=== PATIENT | male | born 1990 | race Caucasian/White ===

== ENCOUNTER 2017-09-16 20:28 | Inpatient (IN) | payer SELFPAY ==
[2017-09-16] VITALS (18 sets, daily range): BP systolic 78–113; BP diastolic 39–82
[~2017-09-16] VITALS: Ht 175.3 cm; Wt 66.0 kg
[~2017-09-16 20:28] MED LIST: BENZ100C18 PO; FAMO20TA5 PO; INSASP10V; INSASP10V SC; INSU100C4 SQ; Levofloxacin PO; Oseltamivir Phosphate PO; SODIUM BICARB 8.4% 50 MEQ/50 ML (ABBOTT) SYR INJ ONE; TRM50T PO
--- OUTSIDE RECORDS SUMMARY | 2017-09-16 20:35 | XMS REPORT | Continuity of Care Document ---
Author Author [employer] Organization [facility] Address Unknown Phone Unavailable Care Team Providers Care Franchise Consultant Name Role Phone [employer] Unavailable Unavailable Problems Medications Allergies, Adverse Reactions, Alerts Immunizations Results Vital Signs Encounters Procedures Plan of Care Social History Assessment and Plan Family History Value Date Source Advance Directives Order Name Results Value Date Source
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
--- OUTSIDE RECORDS SUMMARY | 2017-09-16 20:36 | XMS REPORT ---
Author Author HILARIO FISHMAN [facility] [employer] Address Unknown Phone Unavailable Care Team Providers Care Fur Joiner Name Role Phone HILARIO FISHMAN CP Unavailable Allergies No Known Allergies Problems [...] ankle and foot joint 719.07 Active Medications No Known Medications Results No Known Results Summary Purpose eClinicalWorks Submission
--- OUTSIDE RECORDS SUMMARY | 2017-09-16 20:36 | XMS REPORT | Clinical Summary ---
Author Author [facility] Organization [facility] Address Unknown Phone Unavailable Care Team Providers Care Sustainable Development Policy Analyst Name Role Phone PCP Unavailable Source Comments Some departments are not documenting in the electronic medical record. If you do not see the information that you expected, contact Release of Information in the Health Information Management department at [phone] for further assistance in locating additional records.[facility] Allergies Active Allergy Reactions Severity Noted Date Comments Penicillin G RASH Medium 12/15/2015 Current Medications Prescription Sig. Disp. Refills Start End Date Status Date natamycin (NATACYN) 5 % Insert or Apply 1 Drop to Active drps right eye as directed every 2 hours. INSULIN ASPART (NOVOLOG Inject into area(s) as Active SC) directed. INSULIN Inject into area(s) as Active GLARGINE,HUM.REC.ANLOG directed. (LANTUS SC) tobramycin (TOBREX) 0.3 % Insert or Apply 1 Drop to Active ophthalmic solution right eye as directed every 2 hours. Active Problems Problem Noted Date Keratitis right eye 12/16/2015 Overview: H/o non-healing epi defect Oct 2015, described by the patient as a possible recurrent erosion, that was being treated since Oct with antibiotic drops, PF, and BCL. 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 L ast Assessment & Plan: Infiltrate may be a little better Confocal--no epi centrally, loss of nerves and keratocytes anteriorly. No filaments or confirmed ameba. Has some globular KP of various sizes. No hyphae. A--infectious keratitis--under broad treatment P--CPM,. Review old records. Family History Medical History Relation Name Comments Diabetes Father Hypertension Father Diabetes Paternal Grandfather Hypertension Paternal Grandfather Cancer Paternal Grandmother Diabetes Paternal Grandmother Hypertension Paternal Grandmother Relation Name Status Comments Father Paternal Grandfather Paternal Grandmother Social History Tobacco Use Types Packs/Day Years Used Date Former Smoker Cigarettes 1 4 Alcohol Use Drinks/Week oz/Week Comments Yes 2 Standard 1.2 drinks or equivalent Sex Assigned at Date Recorded Not on file Last Filed Vital Signs Vital Sign Reading Time Taken Blood Pressure 135/75 12/15/2015 8:44 PM MIDDLE SCHOOL TEACHER Pulse 112 12/15/2015 8:44 PM MIDDLE SCHOOL TEACHER Temperature 37 C (98.6 F) 12/15/2015 8:44 PM MIDDLE SCHOOL TEACHER Respiratory Rate - - Oxygen Saturation 100% 12/15/2015 8:44 PM MIDDLE SCHOOL TEACHER Inhaled Oxygen - - Concentration Weight 52.2 kg (115 lb) 12/18/2015 12:19 PM MIDDLE SCHOOL TEACHER Height 180.3 cm (5' 11") 12/18/2015 12:19 PM MIDDLE SCHOOL TEACHER Body Mass Index 16.04 12/18/2015 12:19 PM MIDDLE SCHOOL TEACHER Plan of Treatment Health Maintenance Due Date Last Done Comments PHYSICAL (COMPREHENSIVE) 1996 EXAM PERTUSSIS VACCINE 2000 TETANUS VACCINE 2006 INFLUENZA VACCINE 05/16/2017 Results Not on filefrom Last 3 Months
--- OUTSIDE RECORDS SUMMARY | 2017-09-16 20:36 | XMS REPORT ---
Author Author EMIL TORRES Organization [employer] Address Unknown Phone Unavailable Care Team Providers Care Garment Sewer Hand Name Role Phone EMIL TORRES CP Unavailable [...] Start Date End Date Status Dosage NovoLog [facility] [address]-93 100 UNIT/ML Subcutaneous 3 times a day February 09, 2016 12 units NovoLog [facility] [address]-75 100 UNIT/ML Sep 08, 2014 12 units by Subcutaneous route 3 [place] [address]-94 100 UNIT/ML Sep 08, 2014 17 Unit by Subcutaneous route 1 time per day at bedtime Results No Known Results Summary Purpose eClinicalWorks Submission
--- OUTSIDE RECORDS SUMMARY | 2017-09-16 20:36 | XMS REPORT ---
Author Author EMIL TORRES Organization [employer] Address Unknown Phone Unavailable Care Team Providers Care Streetsweeper Operator Name Role Phone EMIL TORRES CP Unavailable [...]
--- OUTSIDE RECORDS SUMMARY | 2017-09-16 20:36 | XMS REPORT ---
Author Author EMIL TORRES Organization [employer] Address Unknown Phone Unavailable Care Team Providers Care Grocery Sacker Name Role Phone EMIL TORRES CP Unavailable [...]
--- OUTSIDE RECORDS SUMMARY | 2017-09-16 20:36 | XMS REPORT ---
Author Author EMIL TORRES Organization [employer] Address Unknown Phone Unavailable Care Team Providers Care Principal Examiner Name Role Phone EMIL TORRES CP Unavailable [...]
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
--- OUTSIDE RECORDS SUMMARY | 2017-09-16 20:36 | XMS REPORT ---
Author Author HILARIO FISHMAN [facility] [employer] Address Unknown Phone Unavailable Care Team Providers Care Application Support Analyst Name Role Phone HILARIO FISHMAN CP Unavailable [...]
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
[2017-09-16] MEDS ORDERED: NS IV 1000 ML 1,000 ML ONE ×2 (20:47→20:57)
[2017-09-16] MEDS ORDERED: inSUlin (REGULAR) HUMAN 1 UNIT/0.01 ML (CHARGE PER UNIT) ONE ×3 (20:55→21:24)
[2017-09-16] MEDS ORDERED: cefTRIAXone 1 GM (ROCEPHIN) VIAL IV STA (20:58)
[2017-09-16] MEDS ORDERED: NS IV 1000 ML 1,000 ML IV ONE (20:58)
[2017-09-16] MEDS ORDERED: NS IV 1000 ML 0 ML IV PRN (21:00)
[2017-09-16] MEDS ORDERED: LORazepam INJ 2 MG/ML (ATIVAN) VIAL ONE (21:05)
[2017-09-16 21:14] LABS: BASOPHILS # (AUTO) 0.2 10^3/uL (0.0-0.1); BASOPHILS % (AUTO) 1 % (0-10); EOSINOPHILS # (AUTO) 0.2 10^3/uL (0.0-0.3); EOSINOPHILS % (AUTO) 1 % (0-10); LYMPHOCYTES # (AUTO) 7.2 X 10^3 (1.0-4.0); LYMPHOCYTES % (AUTO) 23 % (12-44); MEAN CORPUSCULAR HEMOGLOBIN 29 PG (25-34); MEAN CORPUSCULAR HGB CONC 32 G/DL (32-36); MEAN CORPUSCULAR VOLUME 90 FL (80-99); MEAN PLATELET VOLUME 9.6 FL (7.4-10.4); MONOCYTES # (AUTO) 1.3 X 10^3 (0.0-1.0); MONOCYTES % (AUTO) 4 % (0-12); NEUTROPHILS # (AUTO) 22.5 X 10^3 (1.8-7.8); NEUTROPHILS % (AUTO) 72 % (42-75); PLATELET COUNT 457 10^3/uL (130-400); RED BLOOD COUNT 4.89 10^6/uL (4.35-5.85); RED CELL DISTRIBUTION WIDTH 12.8 % (10.0-14.5)
[2017-09-16 21:16] LABS: ABG BASE EXCESS -28.2 MMOL/L (-2.5-2.5); ABG OXYGEN SATURATION 100 % (94-100); ABG PO2 484 MMHG (79-93); ABG TCO2 2.4 MMOL/L (21.0-31.0)
[2017-09-16 21:24] LABS: BILIRUBIN,URINE NEGATIVE (NEGATIVE); KETONES,URINE 4+ (NEGATIVE); LEUKOCYTE ESTERASE ,URINE NEGATIVE (NEGATIVE); NITRITE,URINE NEGATIVE (NEGATIVE); PH,URINE 5 (5-9); PROTEIN,URINE 2+ (NEGATIVE); UROBILINOGEN,URINE NORMAL (NORMAL)
[2017-09-16] MEDS ORDERED: SODIUM BICARB 8.4% 50 MEQ/50 ML (ABBOTT) SYR ONE (21:24)
[2017-09-16 21:29] LABS: ALANINE AMINOTRANSFERASE 86 U/L (0-55); ALBUMIN 3.9 GM/DL (3.2-4.5); ALCOHOL < 10 MG/DL (<10); ASPARTATE AMINO TRANSFERASE 68 U/L (5-34); BILIRUBIN,TOTAL 0.3 MG/DL (0.1-1.0); BLOOD UREA NITROGEN 16 MG/DL (7-18); BUN/CREATININE RATIO 9; CALCIUM 9.5 MG/DL (8.5-10.1); CHLORIDE 94 MMOL/L (98-107); CREATININE SERUM 1.82 MG/DL (0.60-1.30); GFR ESTIMATED 45; MAGNESIUM 2.1 MG/DL (1.8-2.4); POTASSIUM 6.1 MMOL/L (3.6-5.0); SODIUM 133 MMOL/L (135-145); TOTAL PROTEIN 8.4 GM/DL (6.4-8.2); WHITE BLOOD COUNT 31.4 10^3/uL (4.3-11.0)
[2017-09-16 21:30] LABS: ABG HCO3 2 MMOL/L (23-27); ABG PCO2 11 MMHG (35-45); ABG PH 6.92 (7.37-7.43); PATIENT TEMP 97.5
[2017-09-16] MEDS ORDERED: SODIUM BICARB 8.4% 50 MEQ/50 ML (ABBOTT) SYR IV ONE ×2 (21:30→21:45)
[2017-09-16] MEDS ORDERED: inSUlin (REGULAR) HUMAN 1 UNIT/0.01 ML (CHARGE PER UNIT) IV ONE ×2 (21:30)
[2017-09-16 21:40] LABS: INR 1.4 (0.8-1.4); PROTHROMBIN TIME PATIENT 17.5 SEC (12.2-14.7)
[2017-09-16] MEDS ORDERED: D5W IV SOLUTION (EXCEL) 250 ML IV ONE ×2 (21:42→22:12)
[2017-09-16] MEDS ORDERED: NOREPINEPHRINE 4 MG/4 ML (LEVOPHED) AMP IV ONE (21:42)
[2017-09-16 21:43] LABS: ANION GAP 34 MMOL/L (5-14); CARBON DIOXIDE < 5 MMOL/L (21-32); GLUCOSE 753 MG/DL (70-105)
[2017-09-16] MEDS ORDERED: CEFEPIME INJECTION 2,000 MG in NS (IVPB) 50 ML IV ONE (21:45)
[2017-09-16] MEDS ORDERED: NS (IVPB) 50 ML ONE (21:49)
[2017-09-16] MEDS ORDERED: CEFEPIME HCL 2 GM (MAXIPIME) VIAL ONE (21:49)
[2017-09-16 21:52] LABS: BURR CELLS SLIGHT; EOSINOPHILS % (MANUAL) 1 %; LYMPHOCYTES % (MANUAL) 30 %; NEUTROPHILS % (MANUAL) 68 %; POIKILOCYTOSIS SLIGHT
[2017-09-16] MEDS ORDERED: RT-ALBUTEROL SULF 2.5 MG/3 ML PRE-MIX VIAL ONE (21:52)
[2017-09-16] MEDS ORDERED: ADENOSINE 6 MG/2 ML (ADENOCARD) VIAL IV ONE (21:54)
[2017-09-16 22:14] LABS: ABG BASE EXCESS -22.6 MMOL/L (-2.5-2.5); ABG OXYGEN SATURATION 99 % (94-100); ABG PCO2 20 MMHG (35-45); ABG PO2 127 MMHG (79-93); ABG TCO2 6.3 MMOL/L (21.0-31.0)
[2017-09-16 22:17] LABS: ABG HCO3 6 MMOL/L (23-27); ABG PH 7.08 (7.37-7.43); ALLENS TEST YES-POS
--- OUTSIDE RECORDS SUMMARY | 2017-09-16 22:22 | XMS REPORT | Clinical Summary ---
Author Author [facility] Organization [facility] Address Unknown Phone Unavailable Care Team Providers Care Grass Farmer Name Role Phone PCP Unavailable Source Comments Some departments are not documenting in the electronic medical record. If you do not see the information that you expected, contact Release of Information in the Health Information Management department at [phone] for further assistance in locating additional records.[facility] Allergies Active Allergy Reactions Severity Noted [...] and BCL. 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 Assessment & Plan: Infiltrate may [...] Taken Blood Pressure 135/75 12/15/2015 8:44 PM DIRECTOR LABOR STANDARDS Pulse 112 12/15/2015 8:44 PM DIRECTOR LABOR STANDARDS Temperature 37 C (98.6 F) 12/15/2015 8:44 PM DIRECTOR LABOR STANDARDS Respiratory Rate - - Oxygen Saturation 100% 12/15/2015 8:44 PM DIRECTOR LABOR STANDARDS Inhaled Oxygen - - Concentration Weight 52.2 kg (115 lb) 12/18/2015 12:19 PM DIRECTOR LABOR STANDARDS Height 180.3 cm (5' 11") 12/18/2015 12:19 PM DIRECTOR LABOR STANDARDS Body Mass Index 16.04 12/18/2015 12:19 PM DIRECTOR LABOR STANDARDS Plan of Treatment Health Maintenance Due Date Last Done Comments PHYSICAL (COMPREHENSIVE) 1996 EXAM PERTUSSIS VACCINE 2000 TETANUS VACCINE 2006 INFLUENZA VACCINE 05/16/2017 Results Not on filefrom Last 3 Months
--- OUTSIDE RECORDS SUMMARY | 2017-09-16 22:22 | XMS REPORT | Continuity of Care Document ---
Author Author [employer] Organization [facility] Address Unknown Phone Unavailable Care Team Providers Care Alumnae Secretary Name Role Phone [employer] Unavailable Unavailable Problems Medications Allergies, Adverse Reactions, Alerts Immunizations Results Vital Signs Encounters Procedures Plan of Care Social History Assessment and Plan Family History Value Date Source Advance Directives Order Name Results Value Date Source
[2017-09-16] MEDS: PHENYLEPHRINE INJECTION 10 MG in D5W IV SOLUTION (EXCEL) 250 ML IV SCH (22:23)
[2017-09-16] MEDS: PHENYLEPHRINE INJ 10 MG/ML (NEO-SYNEPHRINE 1%) ONE (22:23)
--- NOTE | 2017-09-16 22:33 | History & Physicial ([facility]) ---
HPI History of Present Illness: Patient is unable to provide much history at this time, but does nod and shake his head and attempt to answer questions. Per family, he has not taken insulin in about 8 days. He has been having sinusitis type symptoms and reportedly was seen yesterday and treated for sinusitis. Today, his mother called him and he was not doing well, so she went to his house and found him to be very ill whereupon he was brought to the ER where he was found to have hypoxia, hypotension, tachycardia and acidosis, requiring pressor and CPAP. Source: patient, family Exam Limitations: clinical condition Date seen by provider: Sep 16, 2017 Time Seen by Provider: 22:31 Attending Physician Sravani Stoddard MD PCP [facility] [place] Date of Admission Sep 16, 2017 at 21:30 Home Medications Home Medications Reviewed patient Home Medication Reconciliation Form Allergies Coded Allergies: Penicillins (Verified Allergy, Unknown, 05/23/06) [id number]-[id number] Hx Patient Social History Alcohol Use: Denies Use Recreational Drug Use: No Smoking Status: Unknown if Ever Smoked 2nd Hand Smoke Exposure: No Recent Foreign Travel: No Contact w/other who traveled: No Recent Hopitalizations: Yes Recent Infectious Disease Expo: No Immunizations Up To Date Tetanus Booster (TDap): Unknown Past Medical History PMHx: DMI Family Medical History Significant Family History: No Pertinent Family Hx Review of Systems ([facility]) Constitutional: other (unable to obtain due to patient condition) Reviewed Test Results Reviewed Test Results Lab Laboratory Tests Test 09/16/17 20:46 09/16/17 20:51 09/16/17 21:05 09/16/17 21:14 Range/Units Glucometer > 600 *H 70-110 MG/DL White Blood Count 31.4 *H 4.3-11.0 10^3/uL Red Blood Count 4.89 4.35-5.85 10^6/uL Hemoglobin 14.3 13.3-17.7 G/DL Hematocrit 44 40-54 % Mean Corpuscular Volume 90 80-99 FL Mean Corpuscular Hemoglobin 29 25-34 PG Mean Corpuscular Hemoglobin Concent 32 32-36 G/DL Red Cell Distribution Width 12.8 10.0-14.5 % Platelet Count 457 H 130-400 10^3/uL Mean Platelet Volume 9.6 7.4-10.4 FL Neutrophils (%) (Auto) 72 42-75 % Lymphocytes (%) (Auto) 23 12-44 % Monocytes (%) (Auto) 4 0-12 % Eosinophils (%) (Auto) 1 0-10 % Basophils (%) (Auto) 1 0-10 % Neutrophils # (Auto) 22.5 H 1.8-7.8 X 10^3 Lymphocytes # (Auto) 7.2 H 1.0-4.0 X 10^3 Monocytes # (Auto) 1.3 H 0.0-1.0 X 10^3 Eosinophils # (Auto) 0.2 0.0-0.3 10^3/uL Basophils # (Auto) 0.2 H 0.0-0.1 10^3/uL Neutrophils % (Manual) 68 % Lymphocytes % (Manual) 30 % Monocytes % (Manual) 1 % Eosinophils % (Manual) 1 % Platelet Estimate INCREASED Poikilocytosis SLIGHT [place] Cells SLIGHT Sodium Level 133 L 135-145 MMOL/L Potassium Level 6.1 H 3.6-5.0 MMOL/L Chloride Level 94 L 98-107 MMOL/L Carbon Dioxide Level < 5 *L 21-32 MMOL/L Anion Gap 34 H 5-14 MMOL/L Blood Urea Nitrogen 16 7-18 MG/DL Creatinine 1.82 H 0.60-1.30 MG/DL Estimat Glomerular Filtration Rate 45 BUN/Creatinine Ratio 9 Glucose Level 753 *H 70-105 MG/DL Calcium Level 9.5 8.5-10.1 MG/DL Magnesium Level 2.1 1.8-2.4 MG/DL Total Bilirubin 0.3 0.1-1.0 MG/DL Aspartate Amino Transf (AST/SGOT) 68 H 5-34 U/L Alanine Aminotransferase (ALT/SGPT) 86 H 0-55 U/L Alkaline Phosphatase 189 H 40-136 U/L Total Protein 8.4 H 6.4-8.2 GM/DL Albumin 3.9 3.2-4.5 GM/DL Thyroid Stimulating Hormone (TSH) 0.00 L 0.35-4.94 UIU/ML Serum Alcohol < 10 <10 MG/DL Blood Gas Puncture Site RT BRACHIAL Blood Gas Patient Temperature 97.5 Arterial Blood pH 6.92 *L 7.37-7.43 Arterial Blood Partial Pressure CO2 11 *L 35-45 MMHG Arterial Blood Partial Pressure O2 484 H 79-93 MMHG Arterial Blood HCO3 2 *L 23-27 MMOL/L Arterial Blood Total CO2 2.4 L 21.0-31.0 MMOL/L Arterial Blood Oxygen Saturation 100 94-100 % Arterial Blood Base Excess -28.2 L -2.5-2.5 MMOL/L Bony Test NA Blood Gas Ventilator Setting NO Blood Gas Inspired Oxygen 100% Lactic Acid Level 5.41 *H 0.50-2.00 MMOL/L Urine Color YELLOW Urine Clarity CLEAR Urine pH 5 5-9 Urine Specific [place] 1.020 1.016-1.022 Urine Protein 2+ H NEGATIVE Urine Glucose (UA) 4+ H NEGATIVE Urine Ketones 4+ H NEGATIVE Urine Nitrite NEGATIVE NEGATIVE Urine Bilirubin NEGATIVE NEGATIVE Urine Urobilinogen NORMAL NORMAL MG/DL Urine Leukocyte Esterase NEGATIVE NEGATIVE Urine RBC (Auto) 5+ H NEGATIVE Urine RBC 10-25 H /HPF Urine WBC NONE /HPF Urine Crystals PRESENT H /LPF Urine Amorphous Sediment FEW TARAS URATES H /LPF Urine Bacteria NEGATIVE /HPF Urine Casts NONE /LPF Urine Mucus NEGATIVE /LPF Urine Culture Indicated NO Urine Opiates Screen NEGATIVE NEGATIVE Urine Oxycodone Screen NEGATIVE NEGATIVE Urine Methadone Screen NEGATIVE NEGATIVE Urine Propoxyphene Screen NEGATIVE NEGATIVE Urine Barbiturates Screen NEGATIVE NEGATIVE Ur Tricyclic Antidepressants Screen NEGATIVE NEGATIVE Urine Phencyclidine Screen NEGATIVE NEGATIVE Urine Amphetamines Screen NEGATIVE NEGATIVE Urine Methamphetamines Screen NEGATIVE NEGATIVE Urine Benzodiazepines Screen NEGATIVE NEGATIVE Urine Cocaine Screen NEGATIVE NEGATIVE Urine Cannabinoids Screen NEGATIVE NEGATIVE Test 09/16/17 21:20 09/16/17 21:21 09/16/17 21:48 09/16/17 22:05 Range/Units Prothrombin Time 17.5 H 12.2-14.7 SEC INR Comment 1.4 0.8-1.4 Activated Partial Thromboplast Time 24 24-35 SEC Glucometer > 600 *H 524 *H 70-110 MG/DL Blood Gas Puncture Site LEFT RADIAL Blood Gas Patient Temperature 98.0 Arterial Blood pH 7.08 *L 7.37-7.43 Arterial Blood Partial Pressure CO2 20 L 35-45 MMHG Arterial Blood Partial Pressure O2 127 H 79-93 MMHG Arterial Blood HCO3 6 *L 23-27 MMOL/L Arterial Blood Total CO2 6.3 L 21.0-31.0 MMOL/L Arterial Blood Oxygen Saturation 99 94-100 % Arterial Blood Base Excess -22.6 L -2.5-2.5 MMOL/L Bony Test YES-POS Blood Gas Ventilator Setting NO Blood Gas Inspired Oxygen 100% Test 09/16/17 22:17 Range/Units Glucometer 454 *H 70-110 MG/DL Physical Exam-([facility]) Physical Exam Vital Signs VS - Last 72 Hours, by Label 09/16/17 09/16/17 20:40 21:10 Temp 96.6 Pulse 180 201 Resp 40 45 B/P (MAP) 91/39 (56) Pulse Ox 86 100 O2 Delivery Room Air O2 Flow Rate 100.00 Capillary Refill : Greater Than 3 Seconds General Appearance: severe distress, thin Respiratory: lungs clear, normal breath sounds, accessory muscle use Cardiovascular: no murmur, tachycardia Peripheral Pulses: 2+ Dorsalis Pedis (R), 2+ Left Dors-Pedis (L), 2+ Radial Pulses (R), 2+ Radial Pulses (L) Gastrointestinal: normal bowel sounds, non tender, soft Extremities: no pedal edema Neurologic/Psychiatric: other (lethargic, but answers to name and nods and shakes head appropriately to questions) Skin: cool, other (both shins with large ulcerations with surrounding erythema , family reports occurred on april and he has continued to pick them) Assessment/Plan Assessment/Plan Admission Dx Diabetic ketoacidosis Possible septic shock Lactic acidosis Acute renal insufficiency Tachycardia Hypoxia Altered mental status Hyperkalemia Hyponatremia Chronic leg wounds Plan Diabetic ketoacidosis- pH 6.91 on admission with bicarb of 2 and glucose over 700 -Reportedly no insulin use in last 8 days -Has received 4 liters of NS and 40 units insulin in ER, start DKA protocol in ICU Possible septic shock- WBC over 30 with ALICIA and hypotension in spite of fluid resuscitation -Source unclear, urine without evidence of infection, CXR pending and flu swab pending, consider cellulitis with chronic wounds on legs with some surrounding erythema -Start antibiotics for unknown source, phenylephrine for hypotension due to marked tachycardia per Dr. Blum -Consult Dr. Heredia/Surgery for central line placement for pressors Lactic acidosis- due to septic shock versus DKA with severe hypovolemia and poor tissue perfusion -4 liters bolus given in ER, continue aggressive fluid resuscitation, anticipate need for 8 liters or more -Recheck with next labs Acute renal insufficiency- likely secondary to hypovolemia, monitor with recurring labs Tachycardia- severe with heart rate 190 to over 200, Cardiology contacted by ER physician, phenylephrine drip for hypotension, IVF for underlying conditions noted above Hypoxia- on admission, unclear etiology, currently on cpap at 7 with normal SpO2 , RT consulted, CXR pending Altered mental status- likely due to underlying severe illness noted above, monitor closely Hyperkalemia- anticipate resolution with IVF and insulin, monitor closely for drop and need for replacement per DKA protocol Hyponatremia- pseudohyponatremia due to hyperglycemia, corrected sodium actually 149 which is hypernatremic, if remains elevated after initial fluids will need to change to 1/2NS, follow-up recurring labs Chronic leg wounds- will likely need wound care when stabilized DVT ppx- enoxaparin Disp- admit to ICU, critical, tenuous condition discussed with patient and family. Cardiology, Critical Care and Surgery consulted. SRAVANI STODDARD MD Sep 16, 2017 22:33
--- NOTE | 2017-09-16 23:00 | ED General ---
General Chief Complaint: Glucose Problems Stated Complaint: DKA,SEVERE SEPSIS,SEPTIC SHOCK,ACUTE RENAL FAILURE Nursing Triage Note: PATIENT BROUGHT IN BY WHEELCHAIR BY MOTHER. MOTHER STATES HE IS HAVING DIFFICULTY BREATHING. PATIENT BROUGHT BACK. NOT ALERT. UNABLE TO ANSWER QUESTIONS OR SLOW TO ANSWER. ONSET OF SYMPTOMS UNKNOWN. PATIENT DID STATE HE HAS NOT TAKEN HIS INSULIN IN 8 DAYS. ACCUCHECK TOO HIGH TO READ ON GLUCOMETER. Nursing Sepsis Screen: Possible Severe Sepsis Risk Source of Information: Family (MOM), Old Records (ALL PMH IS FROM OLD RECORDS) Exam Limitations: Other (PT TOO ILL TO ANSWER QUESTIONS, BUT OCCASIONALLY NODS HEAD YES/NO) History of Present Illness Time Seen by Provider: 20:50 Initial Comments PT ARRIVES VIA POV FROM HOME PT HAVING LABORED BREATHING AND IS VERY LETHARGIC PT HAS NOT TAKEN ANY INSULIN FOR 8 DAYS, FOR NO APPARENT REASON--TYPE 1 DIABETIC DX IN 2001 PT WAS SEEN AT [facility] YESTERDAY AND DX WITH SINUS INFECTION AND GIVEN RX FOR Z- PACK. NO OTHER INFORMATION IS OBTAINABLE ON ARRIVAL GLUCOSE IS TOO HIGH TO READ ON GLUCOMETER PT HAS HISTORY OF MULTIPLE ADMITS FOR DKA PCP: [facility] Allergies and Home Medications Allergies Coded Allergies: Penicillins (Verified Allergy, Unknown, 05/23/06) Home Medications Benzonatate 100 Mg Capsule, 100 MG PO TID, #20 Prescribed by: AMRIK JANSEN on 11/17/14911 Insulin Aspart 10 Unit/0.1 Ml Susp, SC TID, (Reported) Insulin Glargine,Hum.rec.anlog 100 U/Ml Cartridge, 12 UNITS SQ HS, (Reported) [Levofloxacin] 750 MG TABLET, 750 MG PO DAILY@1100 for 7 Days Prescribed by: AMRIK JNASEN on 11/17/14911 [Oseltamivir Phosphate] 75 MG CAP, 75 MG PO BID, #3 Prescribed by: AMRIK JANSEN on 11/17/14911 Constitutional: malaise, weakness Respiratory: short of breath, other (BREATHING HARD AND FAST) Skin: other (SCABBED WOUNDS TO SHINS BILATERALLY--MOM STATES IS FROM [place]--[employer] IN[employer]UR[employer]--PT KEEPS PICKING AT THEM AND THEY WON'T HEAL, ACCORDING TO MOM) Past Wpipoya-Ytzkgs-Wdzsjh Hx Patient Social History Alcohol Use: Denies Use Recreational Drug Use: No Smoking Status: Never a Smoker 2nd Hand Smoke Exposure: No Recent Foreign Travel: No Contact w/Someone Who Travel: No Recent Infectious Disease Expo: No Recent Hopitalizations: Yes Physical Abuse: No Sexual Abuse: No Immunizations Up To Date Tetanus Booster (TDap): Unknown Surgeries History of Surgeries: No Respiratory History of Respiratory Disorde: Yes Respiratory Disorders: Pneumonia Cardiovascular History of Cardiac Disorders: No Neurological History of Neurological Disord: No Reproductive System Hx Reproductive Disorders: No Sexually Transmitted Disease: No HIV/AIDS: No Genitourinary History of Genitourinary Disor: No Gastrointestinal History of Gastrointestinal Di: No Musculoskeletal History of Musculoskeletal Dis: No Endocrine History of Endocrine Disorders: Yes (TYPE 1 DIABETES WITH MULTIPLE ADMITS FOR DKA) Endocrine Disorders: Diabetes, Insulin dep HEENT History of HEENT Disorders: No Cancer History of Cancer: No Psychosocial History of Psychiatric Problem: No Suicide Risk Score: 0 Integumentary History of Skin or Integumenta: No Blood Transfusions History of Blood Disorders: No Family Medical History Significant Family History: No Pertinent Family Hx Physical Exam Vital Signs Vital Sign - Last 12Hours 09/16/17 09/16/17 20:40 21:00 Temp 96.6 Pulse 180 Resp 40 B/P (MAP) 91/39 (56) Pulse Ox 86 O2 Delivery Room Air O2 Flow Rate 10.00 Capillary Refill : Greater Than 3 Seconds General Appearance: Chronically ill, Cachetic, Severe Distress, Thin, Other ( TACHYPNEIC, LABORED BREATHING, VERY LETHARGIC, AGITATED, THRASHING AROUND SOME) HEENT: Other (CONJUNCTIVA/EYEBALLS MARKEDLY DRY/SHRIVELED AND EYES VERY SUNKEN , EYES PARTIALLY OPEN. ORAL MUCOSA VERY DRY) Neck: Non Tender, Supple Respiratory: Accessory Muscle Use, Respiratory Distress (TACHYPNEIC AND LABORED BREATHING) Cardiovascular: Tachycardia Gastrointestinal: No Organomegaly, No Pulsatile Mass, Soft (SCAPHOID) Extremity: No Pedal Edema, Slow Capillary Refill, Other (EXTENSIVE SCABBED WOUNDS TO BILATERAL ANTERIOR SHINS--NO OBVIOUS SIGNS OF SECONDARY INFECTION--NO SIGNIFICANT ERYTHEMA (ONLY VERY SLIGHT SURROUNDING ERYTHEMA ) , INDURATION, DRAINAGE, FLUCTUANCE OR STREAKS) Neurologic/Psychiatric: Other (SEMI-ALERT, VERY LETHARGIC. PT NODS HEAD YES/NO OCCASIONALLY, BUT NOT REALLY VERBAL. NOT FOLLOWING COMMANDS, SOMEWHAT AGITATED AND THRASHING, PULLING ON IV TUBING, O2 MASK, ETC. ) Skin: Warm/Dry, Pallor, Other (VERY POOR TURGOR) Focused Exam Evaluation Sepsis Stage: Septic Shock Possible Source: Unknown Lactate Level Laboratory Tests 09/16/17 23:20: Lactic Acid Level 3.87*H 09/17/17 01:15: Lactic Acid Level 3.71*H 09/17/17 03:15: Lactic Acid Level 3.49*H Respiratory: Accessory Muscle Use, No Rales, Respiratory Distress, No Rhonci, No Wheezing Cardiovascular: Tachycardia Peripheral Pulses: 0 Dorsalis Pedis (R), 0 Left Dors-Pedis (L), 1+ Radial Pulses (R), 1+ Radial Pulses (L) Skin: warm/dry, pallor Lactic Acid Level Laboratory Tests Test 09/17/17 01:15 09/17/17 03:15 Lactic Acid Level 3.71 MMOL/L (0.50-2.00) *H 3.49 MMOL/L (0.50-2.00) *H Progress/Results/Core Measures Suspected Sepsis Recent Fever Within 48 Hours: No Infection Criteria Present: Suspected New Infection New/Unexplained Altered Menta: Yes Sepsis Screen: Possible Severe Sepsis Risk Sepsis Diagnosis: SIRS Temperature:97.2 Pulse: 189 Respiratory Rate: 30 Laboratory Tests 09/16/17 20:51: White Blood Count 31.4*H Blood Pressure 101 /70 Mean: 80 Laboratory Tests 09/16/17 23:20: Lactic Acid Level 3.87*H 09/17/17 01:15: Lactic Acid Level 3.71*H 09/17/17 03:15: Lactic Acid Level 3.49*H Laboratory Tests 09/16/17 20:51: Platelet Count 457H, Total Bilirubin 0.3 09/16/17 21:20: INR Comment 1.4 09/16/17 23:20: Creatinine 1.11 09/17/17 01:15: Creatinine 1.02 09/17/17 03:15: Creatinine 0.93 Results/Orders Lab Results Laboratory Tests Test 09/16/17 20:46 09/16/17 20:51 09/16/17 21:05 09/16/17 21:14 Range/Units Glucometer > 600 *H 70-110 MG/DL White Blood Count 31.4 *H 4.3-11.0 10^3/uL Red Blood Count 4.89 4.35-5.85 10^6/uL Hemoglobin 14.3 13.3-17.7 G/DL Hematocrit 44 40-54 % Mean Corpuscular Volume 90 80-99 FL Mean Corpuscular Hemoglobin 29 25-34 PG Mean Corpuscular Hemoglobin Concent 32 32-36 G/DL Red Cell Distribution Width 12.8 10.0-14.5 % Platelet Count 457 H 130-400 10^3/uL Mean Platelet Volume 9.6 7.4-10.4 FL Neutrophils (%) (Auto) 72 42-75 % Lymphocytes (%) (Auto) 23 12-44 % Monocytes (%) (Auto) 4 0-12 % Eosinophils (%) (Auto) 1 0-10 % Basophils (%) (Auto) 1 0-10 % Neutrophils # (Auto) 22.5 H 1.8-7.8 X 10^3 Lymphocytes # (Auto) 7.2 H 1.0-4.0 X 10^3 Monocytes # (Auto) 1.3 H 0.0-1.0 X 10^3 Eosinophils # (Auto) 0.2 0.0-0.3 10^3/uL Basophils # (Auto) 0.2 H 0.0-0.1 10^3/uL Neutrophils % (Manual) 68 % Lymphocytes % (Manual) 30 % Monocytes % (Manual) 1 % Eosinophils % (Manual) 1 % Platelet Estimate INCREASED Poikilocytosis SLIGHT [place] Cells SLIGHT Sodium Level 133 L 135-145 MMOL/L Potassium Level 6.1 H 3.6-5.0 MMOL/L Chloride Level 94 L 98-107 MMOL/L Carbon Dioxide Level < 5 *L 21-32 MMOL/L Anion Gap 34 H 5-14 MMOL/L Blood Urea Nitrogen 16 7-18 MG/DL Creatinine 1.82 H 0.60-1.30 MG/DL Estimat Glomerular Filtration Rate 45 BUN/Creatinine Ratio 9 Glucose Level 753 *H 70-105 MG/DL Calcium Level 9.5 8.5-10.1 MG/DL Magnesium Level 2.1 1.8-2.4 MG/DL Total Bilirubin 0.3 0.1-1.0 MG/DL Aspartate Amino Transf (AST/SGOT) 68 H 5-34 U/L Alanine Aminotransferase (ALT/SGPT) 86 H 0-55 U/L Alkaline Phosphatase 189 H 40-136 U/L Total Protein 8.4 H 6.4-8.2 GM/DL Albumin 3.9 3.2-4.5 GM/DL Thyroid Stimulating Hormone (TSH) 0.00 L 0.35-4.94 UIU/ML Serum Alcohol < 10 <10 MG/DL Blood Gas Puncture Site RT BRACHIAL Blood Gas Patient Temperature 97.5 Arterial Blood pH 6.92 *L 7.37-7.43 Arterial Blood Partial Pressure CO2 11 *L 35-45 MMHG Arterial Blood Partial Pressure O2 484 H 79-93 MMHG Arterial Blood HCO3 2 *L 23-27 MMOL/L Arterial Blood Total CO2 2.4 L 21.0-31.0 MMOL/L Arterial Blood Oxygen Saturation 100 94-100 % Arterial Blood Base Excess -28.2 L -2.5-2.5 MMOL/L Bony Test NA Blood Gas Ventilator Setting NO Blood Gas Inspired Oxygen 100% Lactic Acid Level 5.41 *H 0.50-2.00 MMOL/L Urine Color YELLOW Urine Clarity CLEAR Urine pH 5 5-9 Urine Specific [place] 1.020 1.016-1.022 Urine Protein 2+ H NEGATIVE Urine Glucose (UA) 4+ H NEGATIVE Urine Ketones 4+ H NEGATIVE Urine Nitrite NEGATIVE NEGATIVE Urine Bilirubin NEGATIVE NEGATIVE Urine Urobilinogen NORMAL NORMAL MG/DL Urine Leukocyte Esterase NEGATIVE NEGATIVE Urine RBC (Auto) 5+ H NEGATIVE Urine RBC 10-25 H /HPF Urine WBC NONE /HPF Urine Crystals PRESENT H /LPF Urine Amorphous Sediment FEW TARAS URATES H /LPF Urine Bacteria NEGATIVE /HPF Urine Casts NONE /LPF Urine Mucus NEGATIVE /LPF Urine Culture Indicated NO Urine Opiates Screen NEGATIVE NEGATIVE Urine Oxycodone Screen NEGATIVE NEGATIVE Urine Methadone Screen NEGATIVE NEGATIVE Urine Propoxyphene Screen NEGATIVE NEGATIVE Urine Barbiturates Screen NEGATIVE NEGATIVE Ur Tricyclic Antidepressants Screen NEGATIVE NEGATIVE Urine Phencyclidine Screen NEGATIVE NEGATIVE Urine Amphetamines Screen NEGATIVE NEGATIVE Urine Methamphetamines Screen NEGATIVE NEGATIVE Urine Benzodiazepines Screen NEGATIVE NEGATIVE Urine Cocaine Screen NEGATIVE NEGATIVE Urine Cannabinoids Screen NEGATIVE NEGATIVE Test 09/16/17 21:20 09/16/17 21:21 09/16/17 21:48 09/16/17 22:05 Range/Units Prothrombin Time 17.5 H 12.2-14.7 SEC INR Comment 1.4 0.8-1.4 Activated Partial Thromboplast Time 24 24-35 SEC Glucometer > 600 *H 524 *H 70-110 MG/DL Blood Gas Puncture Site LEFT RADIAL Blood Gas Patient Temperature 98.0 Arterial Blood pH 7.08 *L 7.37-7.43 Arterial Blood Partial Pressure CO2 20 L 35-45 MMHG Arterial Blood Partial Pressure O2 127 H 79-93 MMHG Arterial Blood HCO3 6 *L 23-27 MMOL/L Arterial Blood Total CO2 6.3 L 21.0-31.0 MMOL/L Arterial Blood Oxygen Saturation 99 94-100 % Arterial Blood Base Excess -22.6 L -2.5-2.5 MMOL/L Bony Test YES-POS Blood Gas Ventilator Setting NO Blood Gas Inspired Oxygen 100% Test 09/16/17 22:17 09/16/17 23:20 09/16/17 23:35 09/16/17 23:48 Range/Units Glucometer 454 *H 323 H 70-110 MG/DL Sodium Level 144 135-145 MMOL/L Potassium Level 3.9 3.6-5.0 MMOL/L Chloride Level 114 #H 98-107 MMOL/L Carbon Dioxide Level 7 *L 21-32 MMOL/L Anion Gap 23 H 5-14 MMOL/L Blood Urea Nitrogen 15 7-18 MG/DL Creatinine 1.11 0.60-1.30 MG/DL Estimat Glomerular Filtration Rate > 60 BUN/Creatinine Ratio 14 Glucose Level 346 H 70-105 MG/DL Lactic Acid Level 3.87 *H 0.50-2.00 MMOL/L Calcium Level 6.7 L 8.5-10.1 MG/DL Hemoglobin A1c 8.9 H 4.5-6.2 % Test 09/17/17 01:15 09/17/17 01:21 09/17/17 02:16 09/17/17 03:15 Range/Units Sodium Level 144 142 135-145 MMOL/L Potassium Level 3.8 3.8 3.6-5.0 MMOL/L Chloride Level 115 H 115 H 98-107 MMOL/L Carbon Dioxide Level 9 *L 15 L 21-32 MMOL/L Anion Gap 20 H 12 5-14 MMOL/L Blood Urea Nitrogen 12 9 7-18 MG/DL Creatinine 1.02 0.93 0.60-1.30 MG/DL Estimat Glomerular Filtration Rate > 60 > 60 BUN/Creatinine Ratio 12 10 Glucose Level 248 H 171 H 70-105 MG/DL Lactic Acid Level 3.71 *H 3.49 *H 0.50-2.00 MMOL/L Calcium Level 7.0 L 7.0 L 8.5-10.1 MG/DL Glucometer 233 H 182 H 70-110 MG/DL Test 09/17/17 03:21 09/17/17 04:15 Range/Units Glucometer 159 H 170 H 70-110 MG/DL Micro Results Microbiology 09/16/17 Influenza Types A,B Antigen ([facility]) - Final, Complete My Orders Orders - NICOL SUÁREZ DO Ns Iv 1000 Ml (Sodium Chloride 0.9%) (09/16/17 20:47) Insulin (Regular) Human (Humulin R (Per (09/16/17 20:55) Ns Iv 1000 Ml (Sodium Chloride 0.9%) (09/16/17 20:57) Sputum Culture (09/16/17 20:58) Ua Culture If Indicated (09/16/17 20:58) O2 (09/16/17 20:58) Saline Lock/Iv-Start (09/16/17 20:58) Saline Lock/Iv-Start (09/16/17 20:58) Vital Signs Adult Sepsis Patie Q1H (09/16/17 20:58) Ceftriaxone Injection (Rocephin Injectio (09/16/17 20:58) Remove Rings In Anticipation O (09/16/17 20:58) Alcohol (09/16/17 20:58) Arterial Blood Gas (09/16/17 20:58) Drug Screen Stat (Urine) (09/16/17 20:58) Magnesium (09/16/17 20:58) Accucheck Stat ONCE (09/16/17 20:58) Catheter(Urinary) Insert & Ass 03,15 (09/16/17 20:58) Saline Lock/Iv-Start (09/16/17 20:58) Ns Iv 1000 Ml (Sodium Chloride 0.9%) (09/16/17 20:58) Lorazepam Injection (Ativan Injection) (09/16/17 21:05) Arterial Blood Gas (09/16/17 21:11) Insulin (Regular) Human (Humulin R (Per (09/16/17 21:24) Sodium Bicarbonate 8.4% Syr (Sodium Bica (09/16/17 21:24) Insulin (Regular) Human (Humulin R (Per (09/16/17 21:30) Sodium Bicarbonate 8.4% Syr (Sodium Bica (09/16/17 21:30) Insulin (Regular) Human (Humulin R (Per (09/16/17 21:30) Cefepime Injection (Maxipime Injection) (09/16/17 21:45) Accucheck Stat ONCE (09/16/17 21:50) D5w Iv Solution ([place]) (Dextrose 5% Arron (09/16/17 22:12) Phenylephrine Injection (Laron-Synephrine (09/16/17 22:12) Influenza A And B Antigens (09/16/17 22:41) Hepatitis Panel Acute (09/16/17 23:59) Hiv 1&2 Antibody (09/16/17 23:59) Ns Iv 1000 Ml (Sodium Chloride 0.9%) (09/17/17 00:15) Ns Iv 1000 Ml (Sodium Chloride 0.9%) (09/17/17 00:15) Ns Iv 1000 Ml (Sodium Chloride 0.9%) (09/17/17 00:15) Ns Iv 1000 Ml (Sodium Chloride 0.9%) (09/17/17 00:15) Ns Iv 1000 Ml (Sodium Chloride 0.9%) (09/17/17 00:15) Ns Iv 1000 Ml (Sodium Chloride 0.9%) (09/17/17 00:15) Medications Given in ED Current Medications Medications Dose Ordered Sig/Luis Route Start Time Stop Time Status Last Admin Dose Admin Insulin Human Regular 1 unit STK-MED ONCE .ROUTE 09/16/17 21:00 09/16/17 21:01 DC 09/16/17 21:00 10 UNIT Insulin Human Regular 1 unit STK-MED ONCE .ROUTE 09/16/17 21:24 09/16/17 21:25 DC 09/16/17 21:24 10 UNIT Insulin Human Regular 20 unit ONCE ONCE IV 09/16/17 21:30 09/16/17 21:31 DC 09/16/17 21:23 20 UNIT Lorazepam 2 mg STK-MED ONCE .ROUTE 09/16/17 21:05 09/16/17 21:07 DC 09/16/17 21:05 2 MG Sodium Bicarbonate 100 meq ONCE ONCE IV 09/16/17 21:30 12/2/17 21:31 DC 09/16/17 21:26 100 MEQ Sodium Chloride 0 ml @ 0 mls/hr PRN PRN IV 09/16/17 21:00 09/16/17 22:23 0 MLS/HR Sodium Chloride 1,000 ml @ 0 mls/hr Q0M ONCE IV 09/16/17 20:58 09/16/17 21:01 DC 09/16/17 20:50 0 MLS/HR Sodium Chloride 1,000 ml @ ud STK-MED ONCE .ROUTE 09/16/17 20:47 09/16/17 20:49 DC 09/16/17 20:51 0 MLS/HR Vital Signs/I&O Vital Sign - Last 12Hours 09/16/17 09/16/17 09/16/17 09/16/17 20:40 20:43 20:50 21:00 Temp 96.6 Pulse 180 180 194 Resp 40 40 43 B/P (MAP) 91/39 (56) 106/39 (61) Pulse Ox 86 100 97 O2 Delivery Room Air Non Rebreather Non Rebreather O2 Flow Rate 10.00 09/16/17 09/16/17 09/16/17 09/16/17 21:10 21:10 21:20 21:30 Pulse 201 205 199 210 Resp 45 35 34 31 B/P (MAP) 83/49 (60) 102/79 (87) 96/54 (68) Pulse Ox 100 100 100 100 O2 Delivery NIV Bilevel NIV Bilevel NIV Bilevel O2 Flow Rate 100.00 09/16/17 09/16/17 09/16/17 09/16/17 21:33 21:40 21:50 22:00 Pulse 188 197 199 206 Resp 34 37 35 34 B/P (MAP) 78/42 (54) 95/55 (68) 86/48 (61) Pulse Ox 100 100 100 100 O2 Delivery NIV Bilevel NIV Bilevel NIV Bilevel O2 Flow Rate 21.00 09/16/17 09/16/17 09/16/17 09/16/17 22:02 22:10 22:20 22:30 Pulse 206 205 190 Resp 28 33 34 B/P (MAP) 94/65 (75) 102/64 (77) 100/62 (75) Pulse Ox 100 100 99 100 O2 Delivery NIV Bilevel NIV Bilevel NIV Bilevel 09/16/17 09/16/17 09/16/17 09/16/17 22:40 22:44 22:50 23:00 Temp 97.2 Pulse 181 189 178 Resp 36 30 36 B/P (MAP) 101/70 (80) 101/70 113/71 (85) Pulse Ox 100 100 100 100 O2 Delivery NIV Bilevel NIV Bilevel Room Air 09/16/17 09/16/17 09/16/17 09/16/17 23:00 23:05 23:05 23:10 Temp 96.8 96.8 Pulse 189 197 197 Resp 30 24 37 B/P (MAP) 111/77 (88) 105/82 (90) Pulse Ox 100 100 100 O2 Delivery Room Air Room Air Room Air 09/16/17 09/16/17 09/16/17 09/16/17 23:13 23:15 23:30 23:37 Pulse 192 179 174 133 Resp 25 39 B/P (MAP) 112/78 (89) 91/58 (69) Pulse Ox 100 100 O2 Delivery Room Air Room Air 09/16/17 09/17/17 09/17/17 09/17/17 23:45 00:00 00:00 00:15 Temp 97.5 Pulse 135 128 129 Resp 24 24 23 B/P (MAP) 111/74 (86) 97/68 (78) 101/75 (84) Pulse Ox 100 100 100 O2 Delivery Room Air Room Air Room Air 09/17/17 09/17/17 09/17/17 09/17/17 00:30 00:45 01:00 01:00 Temp 98.4 Pulse 129 125 124 Resp 32 21 23 B/P (MAP) 97/80 (86) 127/87 (100) 134/78 (96) Pulse Ox 100 100 100 O2 Delivery Room Air Room Air Room Air 09/17/17 09/17/17 09/17/17 09/17/17 01:00 01:15 01:30 01:45 Pulse 124 128 125 126 Resp 23 25 22 B/P (MAP) 126/83 (97) 127/80 (96) 113/75 (88) Pulse Ox 100 100 100 O2 Delivery Room Air Room Air Room Air 09/17/17 09/17/17 09/17/17 09/17/17 02:00 02:00 02:15 02:30 Temp 98.7 Pulse 125 125 124 Resp 25 24 24 B/P (MAP) 90/70 (77) 106/67 (80) 116/73 (87) Pulse Ox 100 99 100 O2 Delivery Room Air Room Air Room Air 09/17/17 09/17/17 09/17/17 09/17/17 02:45 03:00 03:15 03:30 Pulse 122 123 121 121 Resp 23 21 22 19 B/P (MAP) 113/72 (86) 116/70 (85) 98/64 (75) 113/68 (83) Pulse Ox 99 100 99 99 O2 Delivery Room Air Room Air Room Air Room Air 09/17/17 09/17/17 09/17/17 09/17/17 03:45 04:00 04:00 04:05 Temp 99.1 Pulse 121 121 Resp 24 15 B/P (MAP) 107/65 (79) 94/56 (69) Pulse Ox 98 96 99 O2 Delivery Room Air Room Air Room Air 09/17/17 09/17/17 04:15 04:30 Pulse 124 126 Resp 13 24 B/P (MAP) 123/84 (97) 102/77 (85) Pulse Ox 99 99 O2 Delivery Room Air Room Air Capillary Refill : Greater Than 3 Seconds Blood Pressure Mean: 80 Point of Care Testing Finger Stick Blood Glucose: 524 Blood Glucose Action Taken: PHYSICIAN NOTIFIED Progress Note : Progress Note PT RECEIVED 6 LITERS OF FLUID IN ER, WITHOUT SIGNIFICANT IMPROVEMENT IN HEART RATE OR BP O2 SATS REMAINED 100%--WAS 100% ON ARRIVAL WELL--PT STARTED ON CPAP IN ER NO DETERIORATION IN PT'S CONDITION, BUT NO SIGNIFICANT IMPROVEMENT IN VITALS BLOOD GLUCOSE DOWN TO 454 WITH 40 UNITS OF INSULIN PT GIVEN 4 AMPS OF BICARB, WITH IMPROVEMENT IN PH AND PCO2 AND HCO3 ECG Initial ECG Impression Time: 21:30 Initial ECG Rate: 185 Initial ECG Rhythm: SVT (UNABLE TO DETERMINE IF AFIB OR SINUS TACH, 4 BEAT RUN OF PVC'S. ) Initial ECG Comparisson: No Previous ECG Available EKG : EKG Time: 21:33 Rate: 199 Rhythm: SVT Diagnostic Imaging Comments CXR--NO ACUTE PROCESS, PENDING RADIOLOGIST REVIEW Reviewed: Reviewed by Me Critical Care Note Critical Care Start Time: 20:50 Total Time (minutes) 90+ Progress SEE NOTES Departure Communication (Admissions) Family Conversation DISCUSSED WITH MOM AND UNCLE, THE GRAVE CONDITION OF PT AND THAT HE IS POSSIBLY NEAR-, AND MAY NOT SURVIVE. ALSO DISCUSSED POSSIBLE TRANSFER IF HE DID NOT IMPROVE THROUGH THE NIGHT, OR IF HIS CONDITION WORSENED. THEY APPEAR TO UNDERSTAND. THEY STATE HAS BEEN SICK LIKE THIS BEFORE. Progress Notes 2129--SPOKE WITH DR. BLANCO, ACCEPTS PT FOR ADMIT. 2142--ATTEMPTING TO CONTACT DR. MONGE, MESSAGE LEFT ON CELL PHONE 2199--DR. BLANCO HERE TO SEE PT 2199--SPOKE WITH DR. DAVIS. HE AGREES WITH PHENYLEPHRINE IF NOREPINEPHRINE DOES NOT IMPROVE BP OR IF HEART RATE INCREASES--ADVISES TO FOLLOW SEPSIS PROTOCOL FOR TREATMENT OF HYPOTENSION. HE DOES NOT ADVISE ADDITIONAL DOSES OF ADENOSINE, DOES NOT ADVISE CARDIOVERSION OR ANY OTHER MEDICATIONS OR TREATMENTS AT THIS TIME. HE WOULD LIKE COPY OF EKG'S TEXTED TO HIM--CREDIT DEPARTMENT MANAGER NOTIFIED. AGREES THAT HEART RATE AND BP LIKELY DUE TO UNDERLYING ILLNESS AND NOT AN ACTUAL CARDIAC PROBLEM AND SHOULD IMPROVE WHEN PT FULLY HYDRATED AND OTHER MEDICAL ISSUES BEGIN TO IMPROVE. 2214--SPOKE WITH DR. MONGE, HE IS AVAILABLE THIS WEEKEND AND WILL SEE PT IN AM. HE DOES NOT ADVISE INTUBATION OR ANY OTHER TREATMENTS AT THIS TIME, OTHER THAN HYDRATION, WHICH IS ALREADY BEING DONE--PT HAS RECEIVED 6 LITERS OF FLUIDS AT THIS TIME. 2249--DR. MANZANO HERE FOR CENTRAL LINE PLACEMENT--REPORTEDLY HE WAS CONTACTED BY CREDIT DEPARTMENT MANAGER FROM THE FLOOR, UNBEKNOWNST TO ANY ER STAFF--PT ALREADY WITH 3 LARGE BORE IV'S RUNNING WIDE OPEN Impression Impression: Primary Impression: SEVERE DKA Additional Impressions: Severe sepsis with septic shock UNDETERMINED SOURCE OF INFECTION Non-compliance Type 1 diabetes mellitus Acute renal failure Severe dehydration Hyperkalemia Low TSH level SVT--POSSIBLE A FIB Elevated liver enzymes CHRONIC LEG WOUNDS Hyponatremia Altered mental status Disposition: ADMITTED INPATIENT Condition: Critical Admissions Decision to Admit Reason: Admit from ER (General) Decision to Admit/Date: Sep 16, 2017 Time/Decision to Admit Time: 21:30 Departure-Patient Inst. Referrals: [facility] (PCP/Family) Primary Care Physician NICOL SUÁREZ DO Sep 16, 2017 22:59
[2017-09-16] MEDS ORDERED: 1/2 NS IV SOLUTION 1,000 ML IV ONE (23:06)
[2017-09-16] MEDS ORDERED: D5 1/2 NS 1000 ML IV SOLUTION 1,000 ML IV SCH (23:15)
[2017-09-16] MEDS ORDERED: CEFEPIME INJECTION 2,000 MG in NS (IVPB) 50 ML IV SCH (23:15)
[2017-09-16] MEDS ORDERED: inSUlin REGULAR TPN/DRIP ONLY 250 UNITS in NORMAL SALINE 250 ML IV SCH (23:15)
--- NOTE | 2017-09-16 23:38 | Progress Note-Post Operative ---
Post-Operative Progess Note Surgeon (s)/Refractory Mixer (s) Surgeon SUNDEEP MANZANO MD Refractory Mixer: none Pre-Operative Diagnosis DKA, hyperkalemia, hypotension. Post-Operative Diagnosis same Procedure & Operative Findings Date of Procedure 09/16/17 Procedure Performed/Findings left subclavian central venous catheter placement. Anesthesia Type local Estimated Blood Loss Estimated blood loss (mL): minimal Specimens/Packing Specimens Removed none SUNDEEP MANZANO MD Sep 16, 2017 23:38
[2017-09-16] MEDS: 1/2 NS IV SOLUTION 1,000 ML IV SCH (23:57)
[2017-09-17] VITALS (45 sets, daily range): BP systolic 90–137; BP diastolic 56–96
[2017-09-17] LABS: BLOOD UREA NITROGEN 15 MG/DL (7-18); BUN/CREATININE RATIO 14; CALCIUM 6.7 MG/DL (8.5-10.1); CHLORIDE 114 MMOL/L (98-107); CREATININE SERUM 1.11 MG/DL (0.60-1.30); GFR ESTIMATED > 60; GLUCOSE 346 MG/DL (70-105); POTASSIUM 3.9 MMOL/L (3.6-5.0); SODIUM 144 MMOL/L (135-145)
[2017-09-17] MEDS ORDERED: NS (IVPB) 100 ML ONE (00:01)
[2017-09-17] MEDS ORDERED: inSUlin (REGULAR) HUMAN 1 UNIT/0.01 ML (CHARGE PER UNIT) ONE (00:01)
[2017-09-17 00:02] LABS: ANION GAP 23 MMOL/L (5-14)
[2017-09-17 00:03] LABS: CARBON DIOXIDE 7 MMOL/L (21-32)
[2017-09-17] MEDS: PHENYLEPHRINE INJ 10 MG/ML (NEO-SYNEPHRINE 1%) ONE (00:05)
--- NOTE | 2017-09-17 00:07 | CONSULTATION REPORT ---
DATE OF SERVICE: 09/16/2017 ATTENDING PRIMARY CARE PHYSICIAN: Dr. Sravani Stoddard. The patient Omar is a 27-year-old male who came in with obtundation, mental status changes, hypoxia, hypotension and tachycardia. He has a known history of insulin-dependent diabetes and has had previous episodes of diabetic ketoacidosis. He reports that he did have some form of sinus infection and that he has not been taking his normal insulin regimen for approximately the past eight days. He is currently hypoventilating and hypotensive, and will require IV vasopressors to maintain mean arterial pressure. He will also need a copious IV hydration. PAST MEDICAL HISTORY: Insulin-dependent diabetes, history of DKA, sinusitis. PAST SURGICAL HISTORY: None. ALLERGIES: PENICILLIN. MEDICATIONS: Benzonatate 100 mg t.i.d., insulin 10 units t.i.d., Lantus insulin 12 units at bedtime, Tamiflu 75 mg daily, levofloxacin 750 mg daily. SOCIAL HISTORY: Negative smoke, negative alcohol. FAMILY HISTORY: Noncontributory. VITAL SIGNS: Temperature 97.2, blood pressure 101/70, pulse 189, respirations 30, pulse ox 100% on O2 nasal cannula. REVIEW OF SYSTEMS: A slightly thin appearing male who is experiencing labored breathing since being admitted to the ICU. He is a verbal and states that he is cold. He has been on Phenylephrine and his systolic blood pressure has been stable in the 100s to 120s. He was experiencing some cough and some nasal drainage. No intermittent episodes of nausea, no known vomiting, no diarrhea, no constipation. No fever or chills with some weight loss in recent week. All other review of systems are negative. PHYSICAL EXAMINATION: CHEST: Good breath sounds bilaterally. Clear. HEART: Sinus tachycardia. No murmurs. EXTREMITIES: No lower extremity edema, negative Homans sign. HEENT: No scleral icterus. NECK: No cervical lymphadenopathy. ABDOMEN: Soft, nontender, nondistended. SKIN: Cool and diaphoretic. LABORATORY DATA: WBC 31.4, hemoglobin 14.3, hematocrit 44, platelets 457. Blood sugar on admission was 753, but now down to 454. BUN 16, creatinine 1.82. Potassium 6.1. ASSESSMENT AND PLAN: A 27-year-old male in diabetic ketoacidosis, respiratory insufficiency and hypotension as well as hypokalemia. He will need aggressive resuscitation with IV fluids as well as diuretic and tight glycemic control. He is also hypotensive and will require vasopressors. He will require a central venous catheter which we will proceed with. Job ID: [id number] DocumentID: [id number] Dictated Date: 09/16/2017 23:34:45 Chief Administrative Officer Date: 09/17/2017 00:07:16 Dictated By: SUNDEEP MANZANO MD
[2017-09-17] MEDS: VANCOMYCIN INJECTION 1,000 MG in NS (IVPB) 250 ML IV SCH ×3 (00:08→23:56)
[2017-09-17] MEDS: metroNIDAZOLE 500MG/100ML IVPB 100 ML IV SCH ×3 (00:08→23:56)
[2017-09-17] MEDS ORDERED: NS IV 1000 ML 1,000 ML IV ONE ×3 (00:15)
[2017-09-17] MEDS ORDERED: NS IV 1000 ML 1,000 ML IV SCH ×3 (00:15)
[2017-09-17] MEDS: DEXTROSE 10% IV SOLUTION 1,000 ML IV SCH ×3 (01:08→21:48)
[2017-09-17] MEDS: D5 1/2 NS W/KCL 20 MEQ/L 1,000 ML IV SCH ×7 (01:08→21:49)
[2017-09-17] MEDS: POTASSIUM CL 10MEQ/50ML IVPB 50 ML IV SCH ×6 (01:09→06:58)
[2017-09-17] MEDS: 1/2 NS W/KCL 20 MEQ/L 1,000 ML IV SCH ×7 (01:09→21:49)
[2017-09-17 01:51] LABS: BLOOD UREA NITROGEN 12 MG/DL (7-18); BUN/CREATININE RATIO 12; CHLORIDE 115 MMOL/L (98-107); CREATININE SERUM 1.02 MG/DL (0.60-1.30); GFR ESTIMATED > 60; GLUCOSE 248 MG/DL (70-105); POTASSIUM 3.8 MMOL/L (3.6-5.0); SODIUM 144 MMOL/L (135-145)
[2017-09-17 01:55] LABS: ANION GAP 20 MMOL/L (5-14); CARBON DIOXIDE 9 MMOL/L (21-32)
--- NOTE | 2017-09-17 02:11 | OPERATIVE REPORT ---
DATE OF SERVICE: 09/16/2017 ATTENDING PHYSICIAN: Dr. Sravani Stoddard. PREPROCEDURE DIAGNOSES: Diabetic ketoacidosis, hyperkalemia and hypotension. POSTOPERATIVE DIAGNOSES: Diabetic ketoacidosis, hyperkalemia and hypotension. PROCEDURE: Placement of left subclavian central venous catheter. SURGEON: Dr. Manzano. ANESTHESIA: Local. ESTIMATED BLOOD LOSS: Minimal. FINDINGS: Catheter tip at superior vena caval-right atrial junction. INDICATIONS: The patient is a 27-year-old male with history of insulin-dependent diabetes. He has had previous episodes of diabetic ketoacidosis. He was brought in by family due to obtundation, lethargy, mental status changes. They report that he did have a sinusitis and he has not been taking his normal diabetic medication regimen for approximately the past eight days. His glucose on admission was approximately 750 and there was also hyperkalemic with a potassium of 6.1. He was also found to be hypotensive requiring vasopressor support. DESCRIPTION OF PROCEDURE: The chest and neck were prepped and draped in standard surgical fashion. A 1% lidocaine was used to anesthetize the overlying skin in the left subclavian region. The left subclavian vein was then cannulated withdrawing the venous blood. A guidewire was then inserted without any resistance. The cannulated needle removed and a small incision made using #11 blade. A track was then created using a venous dilator. A triple lumen central venous catheter was then placed over the guidewire using the Seldinger technique. The guidewire was removed and all three ports casandra venous blood and flushed pristine without any resistance. The catheter was then sutured to the skin using 3-0 silk interrupted sutures. The catheter was then cleaned and covered with sterile gauze followed by Op-Site. The patient tolerated the procedure well. The catheter tip appears to be in the superior vena cava - right atrial junction that may be used at any time. Job ID: [id number] DocumentID: [id number] Dictated Date: 09/16/2017 23:38:34 Interface Developer Date: 09/17/2017 02:10:32 Dictated By: SUNDEEP MANZANO MD [facility]
[2017-09-17] MEDS: PHENYLEPHRINE INJECTION 10 MG in D5W IV SOLUTION (EXCEL) 250 ML IV SCH ×6 (03:29→21:49)
[2017-09-17] MEDS: 1/2 NS IV SOLUTION 1,000 ML IV SCH ×6 (03:29→21:49)
[2017-09-17 03:44] LABS: ANION GAP 12 MMOL/L (5-14); BLOOD UREA NITROGEN 9 MG/DL (7-18); BUN/CREATININE RATIO 10; CARBON DIOXIDE 15 MMOL/L (21-32); CHLORIDE 115 MMOL/L (98-107); CREATININE SERUM 0.93 MG/DL (0.60-1.30); GFR ESTIMATED > 60; GLUCOSE 171 MG/DL (70-105); POTASSIUM 3.8 MMOL/L (3.6-5.0); SODIUM 142 MMOL/L (135-145)
[2017-09-17 05:18] LABS: BASOPHILS % (AUTO) 0 % (0-10); EOSINOPHILS % (AUTO) 0 % (0-10); LYMPHOCYTES # (AUTO) 1.7 X 10^3 (1.0-4.0); LYMPHOCYTES % (AUTO) 13 % (12-44); MEAN CORPUSCULAR HEMOGLOBIN 29 PG (25-34); MEAN CORPUSCULAR HGB CONC 35 G/DL (32-36); MEAN CORPUSCULAR VOLUME 84 FL (80-99); MEAN PLATELET VOLUME 8.7 FL (7.4-10.4); MONOCYTES # (AUTO) 0.8 X 10^3 (0.0-1.0); MONOCYTES % (AUTO) 6 % (0-12); NEUTROPHILS # (AUTO) 11.2 X 10^3 (1.8-7.8); NEUTROPHILS % (AUTO) 82 % (42-75); PLATELET COUNT 223 10^3/uL (130-400); RED BLOOD COUNT 3.57 10^6/uL (4.35-5.85); RED CELL DISTRIBUTION WIDTH 12.2 % (10.0-14.5); WHITE BLOOD COUNT 13.7 10^3/uL (4.3-11.0)
[2017-09-17 05:25] LABS: ABG BASE EXCESS -6.5 MMOL/L (-2.5-2.5); ABG HCO3 18 MMOL/L (23-27); ABG OXYGEN SATURATION 100 % (94-100); ABG PCO2 30 MMHG (35-45); ABG PH 7.39 (7.37-7.43); ABG PO2 102 MMHG (79-93); ABG TCO2 18.5 MMOL/L (21.0-31.0)
[2017-09-17 05:27] LABS: PATIENT TEMP 98.6
[2017-09-17 05:34] LABS: ANION GAP 7 MMOL/L (5-14); BLOOD UREA NITROGEN 8 MG/DL (7-18); BUN/CREATININE RATIO 10; CARBON DIOXIDE 20 MMOL/L (21-32); CHLORIDE 115 MMOL/L (98-107); CREATININE SERUM 0.84 MG/DL (0.60-1.30); GFR ESTIMATED > 60; GLUCOSE 141 MG/DL (70-105); MAGNESIUM 1.3 MG/DL (1.8-2.4); POTASSIUM 3.6 MMOL/L (3.6-5.0); SODIUM 142 MMOL/L (135-145)
[2017-09-17 05:44] LABS: PHOSPHORUS 0.8 MG/DL (2.3-4.7)
[2017-09-17] MEDS: KCL 20 MEQ TAB (K-DUR) PO SCH (05:56)
[2017-09-17] MEDS: MAGNESIUM 1 GM/100 ML IVPB 100 ML IV SCH ×5 (05:56→08:56)
[2017-09-17] MEDS ORDERED: INFLUENZA TRIvalent 2017-2018 0.5 ML/45 MCG SYR IM ONE (07:45)
[2017-09-17] MEDS ORDERED: PHOS-NAK PACKET (NON-FORMULARY) PO NR (07:45)
--- NOTE | 2017-09-17 08:13 | Diagnostic Imaging Report ---
INDICATION: Severe respiratory distress. Chest 09/16/2017. COMPARISON: 11/14/2014. FINDINGS: The minimally coarsened interstitial markings in the mid upper lungs could be due to the semiupright portable technique. Otherwise, a viral type process not excluded, correlate with symptoms. Remaining lungs clear. No effusions or pneumothorax. No peripheral focal consolidations. The heart is unremarkable. Pulmonary vasculature are stable from previous. IMPRESSION: 1. Minimally increased interstitial markings in the upper lung, see above description. Dictated by: Dictated on workstation # [id number]
--- NOTE | 2017-09-17 08:21 | Diagnostic Imaging Report ---
INDICATION: Central line placement COMPARISON: 09/16/17 10:10 PM FINDINGS: Single view of the chest demonstrates left subclavian central venous catheter. The tip is in the SVC. There is no pneumothorax. Aeration of the lungs is stable. IMPRESSION: Well-positioned left subclavian central venous catheter. Dictated by: Dictated on workstation # [id number]
[2017-09-17] MEDS ORDERED: POT PHOS/NA PHOS (K-PHOS NEUTRAL) PO NR (08:45)
[2017-09-17 08:47] LABS: ANION GAP 6 MMOL/L (5-14); BLOOD UREA NITROGEN 7 MG/DL (7-18); BUN/CREATININE RATIO 9; CARBON DIOXIDE 19 MMOL/L (21-32); CHLORIDE 114 MMOL/L (98-107); GFR ESTIMATED > 60; GLUCOSE 156 MG/DL (70-105); POTASSIUM 3.7 MMOL/L (3.6-5.0); SODIUM 139 MMOL/L (135-145)
[2017-09-17] MEDS: CEFEPIME INJECTION 2,000 MG in NS (IVPB) 50 ML IV SCH ×2 (08:56→21:44)
--- NOTE | 2017-09-17 10:14 | Pulmonary Consultation ---
History of Present Illness History of Present Illness Date of Consultation 09/17/17 10:09 Time Seen by Provider: 10:09 Date of Admission History of Present Illness 27yo presented to ED with severe DKA and lethargy. Per family pt had not taken insulin in 8 days. He was recently treated for sinusitis. pt does have a hx of being hospitalized for DKA. I am consulted for ICU management. Allergies and Home Medications Allergies Coded Allergies: Penicillins (Verified Allergy, Unknown, 05/23/06) Home Medications Azithromycin 250 Mg Tablet, 250 MG PO DAILY, (Reported) FILLED 09/15/17 #6 FOR A 5 DAY THERAPY Insulin Aspart 300 Units/3 Ml Solution, SQ UD, (Reported) PATIENT INJECTS 2 UNITS PER CARBOHYDRATE WITH MEALS Insulin Detemir 100 Unit/1 Ml Insuln.pen, 15 UNITS SQ HS, (Reported) Lisinopril 5 Mg Tablet, 2.5 MG PO DAILY, #30 Prescribed by: SHAMIKA FERMIN on 09/19/17 1021 Metoprolol Tartrate 25 Mg Tablet, 25 MG PO BID, #60 Prescribed by: SHAMIKA FERMIN on 09/19/17 1021 Past Nmofsof-Siixyd-Ihygbc Hx Patient Social History Alcohol Use: Denies Use Recreational Drug Use: No Smoking Status: Never a Smoker 2nd Hand Smoke Exposure: No Recent Foreign Travel: No Contact w/Someone Who Travel: No Recent Infectious Disease Expo: No Recent Hopitalizations: Yes Physical Abuse: No Sexual Abuse: No Immunizations Up To Date Tetanus Booster (TDap): Unknown PED Vaccines UTD: No Seasonal Allergies Seasonal Allergies: No Surgeries History of Surgeries: No Respiratory History of Respiratory Disorde: Yes Respiratory Disorders: Pneumonia Currently Using CPAP: No Currently Using BIPAP: No Cardiovascular History of Cardiac Disorders: No Neurological History of Neurological Disord: No Reproductive System Hx Reproductive Disorders: No Sexually Transmitted Disease: No HIV/AIDS: No Genitourinary History of Genitourinary Disor: No Gastrointestinal History of Gastrointestinal Di: No Musculoskeletal History of Musculoskeletal Dis: No Endocrine History of Endocrine Disorders: Yes (TYPE 1 DIABETES WITH MULTIPLE ADMITS FOR DKA) Endocrine Disorders: Diabetes, Insulin dep Are Your Blood Sugars Over 250: Yes HEENT History of HEENT Disorders: No Cancer History of Cancer: No Did You Recieve Any Treatments: No Psychosocial History of Psychiatric Problem: No Suicide Risk Score: 0 Integumentary History of Skin or Integumenta: No Blood Transfusions History of Blood Disorders: No Adverse Reaction to a Blood Tr: No Family Medical History Significant Family History: No Pertinent Family Hx Review of Systems Time Seen by Provider: 09:02 Constitutional: Chills, Sweats, Weakness, Malaise, No: Fever, Other Eyes: No: Pain, Vision change, Conjunctivae inflammation, Eyelid inflammation, Other, Redness ENT: No: Ear pain, Ear discharge, Nose pain, Nose discharge, Nose congestion, Mouth pain, Mouth swelling, Throat pain, Throat swelling, Other Respiratory: Shortness of breath, SOB with excertion, No: Wheezing Cardiovascular: Paroxysmal Noc. Dyspnea, Lt Headedness Gastrointestinal: Nausea, No: Vomiting, Abdominal Pain, Diarrhea, Constipation , Melena, Hematochezia, Other Genitourinary: No Dysuria, No Frequency, No Incontinence, No Hematuria, No Retention, No Other Neurological: Weakness, Incoordination, Change in speech, Confusion Exam Exam Vital Signs Date Time Temp Pulse Resp B/P (MAP) Pulse Ox O2 Delivery O2 Flow Rate FiO2 09/17/17 08:00 99 Room Air 09/17/17 07:00 99.6 09/17/17 07:00 111 09/17/17 06:45 110 19 93/60 (71) 98 Room Air 09/17/17 06:30 106 22 119/74 (89) 99 Room Air 09/17/17 06:15 110 13 107/64 (78) 98 Room Air 09/17/17 06:00 113 25 99/59 (72) 98 Room Air 09/17/17 05:45 123 26 110/65 (80) 100 Room Air 09/17/17 05:30 122 19 124/83 (97) 99 Room Air 09/17/17 05:15 122 18 95/67 (76) 99 Room Air 09/17/17 05:00 113 23 95/67 (76) 100 Room Air 09/17/17 04:45 114 22 110/68 (82) 100 Room Air 09/17/17 04:30 126 24 102/77 (85) 99 Room Air 09/17/17 04:15 124 13 123/84 (97) 99 Room Air 09/17/17 04:05 99.1 09/17/17 04:00 99 Room Air 09/17/17 04:00 121 15 94/56 (69) 96 Room Air 09/17/17 03:45 121 24 107/65 (79) 98 Room Air 09/17/17 03:30 121 19 113/68 (83) 99 Room Air 09/17/17 03:15 121 22 98/64 (75) 99 Room Air 09/17/17 03:00 123 21 116/70 (85) 100 Room Air 09/17/17 02:45 122 23 113/72 (86) 99 Room Air 09/17/17 02:30 124 24 116/73 (87) 100 Room Air 09/17/17 02:15 125 24 106/67 (80) 99 Room Air 09/17/17 02:00 98.7 09/17/17 02:00 125 25 90/70 (77) 100 Room Air 09/17/17 01:45 126 22 113/75 (88) 100 Room Air 09/17/17 01:30 125 25 127/80 (96) 100 Room Air 09/17/17 01:15 128 23 126/83 (97) 100 Room Air 09/17/17 01:00 124 09/17/17 01:00 98.4 09/17/17 01:00 124 23 134/78 (96) 100 Room Air 09/17/17 00:45 125 21 127/87 (100) 100 Room Air 09/17/17 00:30 129 32 97/80 (86) 100 Room Air 09/17/17 00:15 129 23 101/75 (84) 100 Room Air 09/17/17 00:00 97.5 09/17/17 00:00 128 24 97/68 (78) 100 Room Air 09/16/17 23:45 135 24 111/74 (86) 100 Room Air 09/16/17 23:37 133 09/16/17 23:30 174 39 91/58 (69) 100 Room Air 09/16/17 23:15 179 25 112/78 (89) 100 Room Air 09/16/17 23:13 192 09/16/17 23:10 197 37 105/82 (90) 100 Room Air 09/16/17 23:05 197 24 111/77 (88) 100 Room Air 09/16/17 23:05 96.8 09/16/17 23:00 96.8 189 30 100 Room Air 09/16/17 23:00 100 Room Air 09/16/17 22:50 178 36 113/71 (85) 100 NIV Bilevel 09/16/17 22:44 97.2 189 30 101/70 100 09/16/17 22:40 181 36 101/70 (80) 100 NIV Bilevel 09/16/17 22:30 190 34 100/62 (75) 100 NIV Bilevel 09/16/17 22:20 205 33 102/64 (77) 99 NIV Bilevel 09/16/17 22:10 206 28 94/65 (75) 100 NIV Bilevel 09/16/17 22:02 100 09/16/17 22:00 206 34 86/48 (61) 100 NIV Bilevel 09/16/17 21:50 199 35 95/55 (68) 100 NIV Bilevel 09/16/17 21:40 197 37 78/42 (54) 100 NIV Bilevel 09/16/17 21:33 188 34 100 21.00 09/16/17 21:30 210 31 96/54 (68) 100 NIV Bilevel 09/16/17 21:20 199 34 102/79 (87) 100 NIV Bilevel 09/16/17 21:10 205 35 83/49 (60) 100 NIV Bilevel 09/16/17 21:10 201 45 100 100.00 09/16/17 21:00 194 43 97 Non Rebreather 10.00 09/16/17 20:50 180 40 106/39 (61) 100 09/16/17 20:43 Non Rebreather 09/16/17 20:40 96.6 180 40 91/39 (56) 86 Room Air General Appearance: Chronically ill, Cachetic, Severe Distress, Thin, Other ( TACHYPNEIC, LABORED BREATHING, VERY LETHARGIC, AGITATED, THRASHING AROUND SOME) HEENT: Other (CONJUNCTIVA/EYEBALLS MARKEDLY DRY/SHRIVELED AND EYES VERY SUNKEN , EYES PARTIALLY OPEN. ORAL MUCOSA VERY DRY) Neck: Non Tender, Supple Respiratory: Accessory Muscle Use, No Rales, Respiratory Distress, No Rhonci, No Wheezing Cardiovascular: Tachycardia Capillary Refill: Greater Than 3 Seconds Peripheral Pulses: 0 Dorsalis Pedis (R), 0 Left Dors-Pedis (L), 1+ Radial Pulses (R), 1+ Radial Pulses (L) Gastrointestinal: normal bowel sounds, non tender, soft Extremity: No Pedal Edema, Slow Capillary Refill, Other (EXTENSIVE SCABBED WOUNDS TO BILATERAL ANTERIOR SHINS--NO OBVIOUS SIGNS OF SECONDARY INFECTION--NO SIGNIFICANT ERYTHEMA (ONLY VERY SLIGHT SURROUNDING ERYTHEMA ) , INDURATION, DRAINAGE, FLUCTUANCE OR STREAKS) Neurologic/Psychiatric: Other (SEMI-ALERT, VERY LETHARGIC. PT NODS HEAD YES/NO OCCASIONALLY, BUT NOT REALLY VERBAL. NOT FOLLOWING COMMANDS, SOMEWHAT AGITATED AND THRASHING, PULLING ON IV TUBING, O2 MASK, ETC. ) Skin: Warm/Dry, Pallor, Other (VERY POOR TURGOR) Results Lab Laboratory Tests 09/16/17 20:51 09/16/17 23:20 09/17/17 01:15 09/17/17 03:15 09/17/17 05:10 09/17/17 08:20 Assessment/Plan Assessment/Plan Severe acute DKA -Continue insulin gtt until C02 is normal and gap is closed -Give long acting insulin gtt 2hrs prior to d/cing insulin gtt -Continue d51/2 NS with KCL -monitor labs and continue DKA protocol Questionable sepsis -continue abx and await tim culture -IVF 255 Clinical Quality Measures DVT/VTE Risk/Contraindication: Risk Factor Score Per Nursin RFS Level Per Nursing on Admit: 4+=Very High LUIS ANGEL MONGE DO Sep 17, 2017 10:14
--- NOTE | 2017-09-17 10:15 | Diagnostic Imaging Report ---
INDICATION: Shortness of breath. COMPARISON: 09/16/2017 FINDINGS: Single view of the chest demonstrates cardiac enlargement without pulmonary edema. There is persistent but decreased central vascular congestion. There is no pneumothorax. Left subclavian venous catheter stable. IMPRESSION: Cardiac enlargement with persistent but decreasing central vascular congestion. Dictated by: Dictated on workstation # [id number]
--- NOTE | 2017-09-17 10:55 | Progress Note (SOAP) ---
Subjective Subjective/Events-last exam Afebrile, markedly improved this am with closed anion gap, resolved acidosis. Bicarb still slightly low. He is alert and oriented this morning and is tolerating liquids. Review of Systems Date Seen by Provider: Sep 17, 2017 Time Seen by Provider: 10:30 Objective Exam Last Set of Vital Signs Vital Signs Date Time Temp Pulse Resp B/P (MAP) Pulse Ox O2 Delivery O2 Flow Rate FiO2 09/17/17 08:00 99 Room Air 09/17/17 07:00 99.6 09/17/17 07:00 111 09/17/17 06:45 19 93/60 (71) 09/16/17 21:33 21.00 Capillary Refill : Greater Than 3 Seconds I&O Intake and Output 09/18/17 00:00 Intake Total 3041 ml Output Total 2275 ml Balance 766 ml Intake Oral 1005 ml IV Total 2036 ml Output Urine Total 2275 ml # Bowel Movements 1 Daily Weight Change Unsure General: Alert, No Acute Distress Lungs: Clear to Auscultation, Normal Air Movement Heart: No Murmurs, Other (tachycardic) Abdomen: Normal Bowel Sounds, Soft Extremities: No Tenderness/Swelling Skin: Other (bilateral hoff ulcerations with erythema) Psych/Mental Status: Mental Status NL, Mood NL Results/Procedures Lab Laboratory Tests 09/16/17 20:46: Glucometer > 600*H 09/16/17 20:51: White Blood Count 31.4*H, Red Blood Count 4.89, Hemoglobin 14.3, Hematocrit 44, Mean Corpuscular Volume 90, Mean Corpuscular Hemoglobin 29, Mean Corpuscular Hemoglobin Concent 32, Red Cell Distribution Width 12.8, Platelet Count 457H, Mean Platelet Volume 9.6, Neutrophils (%) (Auto) 72, Lymphocytes (%) (Auto) 23, Monocytes (%) (Auto) 4, Eosinophils (%) (Auto) 1, Basophils (%) (Auto) 1, Neutrophils # (Auto) 22.5H, Lymphocytes # (Auto) 7.2H, Monocytes # (Auto) 1.3H, Eosinophils # (Auto) 0.2, Basophils # (Auto) 0.2H, Neutrophils % (Manual) 68, Lymphocytes % (Manual) 30, Monocytes % (Manual) 1, Eosinophils % (Manual) 1, Platelet Estimate INCREASED, Poikilocytosis SLIGHT, [place] Cells SLIGHT, Sodium Level 133L, Potassium Level 6.1H, Chloride Level 94L, Carbon Dioxide Level < 5*L , Anion Gap 34H, Blood Urea Nitrogen 16, Creatinine 1.82H, Estimat Glomerular Filtration Rate 45, BUN/Creatinine Ratio 9, Glucose Level 753*H, Calcium Level 9.5, Magnesium Level 2.1, Total Bilirubin 0.3, Aspartate Amino Transf (AST/SGOT ) 68H, Alanine Aminotransferase (ALT/SGPT) 86H, Alkaline Phosphatase 189H, Total Protein 8.4H, Albumin 3.9, Thyroid Stimulating Hormone (TSH) 0.00L, Serum Alcohol < 10 09/16/17 21:05: Blood Gas Puncture Site RT BRACHIAL, Blood Gas Patient Temperature 97.5, Arterial Blood pH 6.92*L, Arterial Blood Partial Pressure CO2 11*L, Arterial Blood Partial Pressure O2 484H, Arterial Blood HCO3 2*L, Arterial Blood Total CO2 2.4L, Arterial Blood Oxygen Saturation 100, Arterial Blood Base Excess - 28.2L, Bony Test NA, Blood Gas Ventilator Setting NO, Blood Gas Inspired Oxygen 100%, Lactic Acid Level 5.41*H 09/16/17 21:14: Urine Color YELLOW, Urine Clarity CLEAR, Urine pH 5, Urine Specific [place] 1.020, Urine Protein 2+H, Urine Glucose (UA) 4+H, Urine Ketones 4+H, Urine Nitrite NEGATIVE, Urine Bilirubin NEGATIVE, Urine Urobilinogen NORMAL, Urine Leukocyte Esterase NEGATIVE, Urine RBC (Auto) 5+H, Urine RBC 10-25H, Urine WBC NONE, Urine Crystals PRESENTH, Urine Amorphous Sediment FEW TARAS URATESH, Urine Bacteria NEGATIVE, Urine Casts NONE, Urine Mucus NEGATIVE, Urine Culture Indicated NO, Urine Opiates Screen NEGATIVE, Urine Oxycodone Screen NEGATIVE, Urine Methadone Screen NEGATIVE, Urine Propoxyphene Screen NEGATIVE, Urine Barbiturates Screen NEGATIVE, Ur Tricyclic Antidepressants Screen NEGATIVE, Urine Phencyclidine Screen NEGATIVE, Urine Amphetamines Screen NEGATIVE, Urine Methamphetamines Screen NEGATIVE, Urine Benzodiazepines Screen NEGATIVE, Urine Cocaine Screen NEGATIVE, Urine Cannabinoids Screen NEGATIVE 09/16/17 21:20: Prothrombin Time 17.5H, INR Comment 1.4, Activated Partial Thromboplast Time 24 09/16/17 21:21: Glucometer > 600*H 09/16/17 21:48: Glucometer 524*H 09/16/17 22:05: Blood Gas Puncture Site LEFT RADIAL, Blood Gas Patient Temperature 98.0, Arterial Blood pH 7.08*L, Arterial Blood Partial Pressure CO2 20L, Arterial Blood Partial Pressure O2 127H, Arterial Blood HCO3 6*L, Arterial Blood Total CO2 6.3L, Arterial Blood Oxygen Saturation 99, Arterial Blood Base Excess -22.6L , Bony Test YES-POS, Blood Gas Ventilator Setting NO, Blood Gas Inspired Oxygen 100% 09/16/17 22:17: Glucometer 454*H 09/16/17 23:20: Sodium Level 144, Potassium Level 3.9, Chloride Level 114#H, Carbon Dioxide Level 7*L, Anion Gap 23H, Blood Urea Nitrogen 15, Creatinine 1.11, Estimat Glomerular Filtration Rate > 60, BUN/Creatinine Ratio 14, Glucose Level 346H, Lactic Acid Level 3.87*H, Calcium Level 6.7L 09/16/17 23:35: Hemoglobin A1c 8.9H 09/16/17 23:48: Glucometer 323H 09/17/17 01:15: Sodium Level 144, Potassium Level 3.8, Chloride Level 115H, Carbon Dioxide Level 9*L, Anion Gap 20H, Blood Urea Nitrogen 12, Creatinine 1.02, Estimat Glomerular Filtration Rate > 60, BUN/Creatinine Ratio 12, Glucose Level 248H, Lactic Acid Level 3.71*H, Calcium Level 7.0L 09/17/17 01:21: Glucometer 233H 09/17/17 02:16: Glucometer 182H 09/17/17 03:15: Sodium Level 142, Potassium Level 3.8, Chloride Level 115H, Carbon Dioxide Level 15L, Anion Gap 12, Blood Urea Nitrogen 9, Creatinine 0.93, Estimat Glomerular Filtration Rate > 60, BUN/Creatinine Ratio 10, Glucose Level 171H, Lactic Acid Level 3.49*H, Calcium Level 7.0L 09/17/17 03:21: Glucometer 159H 09/17/17 04:15: Glucometer 170H 09/17/17 05:10: White Blood Count 13.7H, Red Blood Count 3.57L, Hemoglobin 10.4#L, Hematocrit 30L, Mean Corpuscular Volume 84, Mean Corpuscular Hemoglobin 29, Mean Corpuscular Hemoglobin Concent 35, Red Cell Distribution Width 12.2, Platelet Count 223, Mean Platelet Volume 8.7, Neutrophils (%) (Auto) 82H, Lymphocytes (% ) (Auto) 13, Monocytes (%) (Auto) 6, Eosinophils (%) (Auto) 0, Basophils (%) ( Auto) 0, Neutrophils # (Auto) 11.2H, Lymphocytes # (Auto) 1.7, Monocytes # (Auto ) 0.8, Eosinophils # (Auto) 0.0, Basophils # (Auto) 0.0, Sodium Level 142, Potassium Level 3.6, Chloride Level 115H, Carbon Dioxide Level 20L, Anion Gap 7 , Blood Urea Nitrogen 8, Creatinine 0.84, Estimat Glomerular Filtration Rate > 60, BUN/Creatinine Ratio 10, Glucose Level 141H, Lactic Acid Level 1.68, Calcium Level 7.0L, Phosphorus Level 0.8*L, Magnesium Level 1.3L 09/17/17 05:14: Glucometer 134H 09/17/17 05:18: Blood Gas Puncture Site LEFT BRACHIAL, Blood Gas Patient Temperature 98.6, Arterial Blood pH 7.39, Arterial Blood Partial Pressure CO2 30L, Arterial Blood Partial Pressure O2 102H, Arterial Blood HCO3 18L, Arterial Blood Total CO2 18.5L, Arterial Blood Oxygen Saturation 100, Arterial Blood Base Excess -6.5L, Bony Test NA, Blood Gas Ventilator Setting NO, Blood Gas Inspired Oxygen ROOM AIR 09/17/17 05:46: Glucometer 138H 09/17/17 06:45: Glucometer 201H 09/17/17 08:04: Glucometer 167H 09/17/17 08:20: Sodium Level 139, Potassium Level 3.7, Chloride Level 114H, Carbon Dioxide Level 19L, Anion Gap 6, Blood Urea Nitrogen 7, Creatinine 0.80, Estimat Glomerular Filtration Rate > 60, BUN/Creatinine Ratio 9, Glucose Level 156H, Calcium Level 7.0L 09/17/17 09:01: Glucometer 156H 09/17/17 10:08: Glucometer 166H Microbiology 09/16/17 Influenza Types A,B Antigen (KAMILLA) - Final, Complete Assessment/Plan Assessment/Plan Plan Diabetic ketoacidosis- pH 6.91 on admission with bicarb of 2 and glucose over 700 -Reportedly no insulin use in last 8 days -Has received 4 liters of NS and 40 units insulin in ER, start DKA protocol in ICU 12/3- Essentially resolved this am with normal anion gap and pH 7.39 this am. Bicarb still just below normal, continue insulin drip until normalized, then start 20 units of levemir 2 hours before d/c of insulin drip and resume home mealtime insulin with sliding scale for meals Possible septic shock- WBC over 30 with ALICIA and hypotension in spite of fluid resuscitation -Source unclear, urine without evidence of infection, CXR pending and flu swab pending, consider cellulitis with chronic wounds on legs with some surrounding erythema -Start antibiotics for unknown source, phenylephrine for hypotension due to marked tachycardia per Dr. Blum -Consult Dr. Heredia/Surgery for central line placement for pressors 09/16- WBC markedly improved as well as resolution of lactic acidosis and improved HR and RR. Not clear if true infection versus severe DKA. Continue abx while waiting on blood culture. Flu swab negative, CXR without infiltrate. Lactic acidosis- due to septic shock versus DKA with severe hypovolemia and poor tissue perfusion -4 liters bolus given in ER, continue aggressive fluid resuscitation, anticipate need for 8 liters or more -Recheck with next labs Resolved Acute renal insufficiency- likely secondary to hypovolemia, monitor with recurring labs Resolved Tachycardia- severe with heart rate 190 to over 200, Cardiology contacted by ER physician, phenylephrine drip for hypotension, IVF for underlying conditions noted above 09/17- significantly improved with massive amount of fluid resuscitation, still slightly tachycardic, continue to monitor Hypoxia- on admission, unclear etiology, currently on cpap at 7 with normal SpO2 , RT consulted, CXR pending 09/17- CXR without infiltrate, no hypoxia after arrival to ICU, stable on room air Altered mental status- likely due to underlying severe illness noted above, monitor closely RESOLVED Hyperkalemia- anticipate resolution with IVF and insulin, monitor closely for drop and need for replacement per DKA protocol RESOLVED Hyponatremia- pseudohyponatremia due to hyperglycemia, corrected sodium actually 149 which is hypernatremic, if remains elevated after initial fluids will need to change to 1/2NS, follow-up recurring labs RESOLVED Hypophosphatemia- replacement per eICU orders 09/17 Hypomagnesemia- replacement per eICU orders 09/17 Chronic leg wounds- will likely need wound care when stabilized DVT ppx- enoxaparin Disp- marked improvement overnight, plans as above, continue ICU care for now, possible transfer to floor tomorrow Clinical Quality Measures DVT/VTE Risk/Contraindication: Risk Factor Score Per Nursin RFS Level Per Nursing on Admit: 4+=Very High DEANNE BLANCO MD Sep 17, 2017 10:55 am
--- NOTE | 2017-09-17 12:01 | Consultation-Cardiology ---
HPI-Cardiology Cardiology Consultation: Date of Consultation 09/17/17 Date of Admission Attending Physician Sravani Stoddard MD Admitting Physician Maddi,[facility] Consulting Physician Dangelo BLUM MD HPI: Time Seen by Provider: 12:13 Chief Complaint: tachycardia this is a 27-year-old gentleman with history of diabetes since he was 11 years of age. For the last couple of days he was not feeling well and had symptoms of sinusitis. He stopped taking his diabetic medications. He was brought to the hospital for altered mental status and was found to be in diabetic ketoacidosis, severe sepsis, shock, tachycardia. Patient improved significantly with aggressive medical management overnight. When I saw him the patient is not complaining of any cardiac symptoms. He is feeling much better than yesterday. Review of Systems-Cardiology Review of Systems Constitutional: As described under HPI Eyes: No As described under HPI, No no symptoms reported, No blindness, No blurred vision, No contact lenses, No drainage, No decreased acuity, No foreign body sensation, No glasses, No inflammation, No pain, No photophobia, No previous injury, No shadows, No tunnel vision, No other, No vision change Ears/Nose/Throat: No As described under HPI, No no symptoms reported, No chronic hearing loss, No epistaxis, No ear discharge, No ear pain, No loose teeth, No mouth pain, No mouth swelling, No nasal drainage, No nose pain, No recent hearing loss, No throat pain, No throat swelling, No ulcerations, No other Respiratory: No no symptoms reported, No As described under HPI, No cough, No orthopnea, No shortness of breath, No SOB with excertion, No SOB at rest, No stridor, No wheezing, No other Cardiovascular: As described under HPI, palpitations Gastrointestinal: No no symptoms reported, No As described under HPI, No abdomen distended, No abdominal pain, No blood streaked bowels, No constipation , No diarrhea, No difficulty swallowing, No nausea, No poor appetite, No poor fluid intake, No rectal bleeding, No vomiting, No other, No nausea/vomiting/ diarrhea, No stool coloration changes Genitourinary: No no symptoms reported, No As described under HPI, No burning, No dysuria, No discharge, No frequency, No flank pain, No hematuria, No incontinence, No pain, No urgency, No other, No urine frequency changes, No urine coloration changes Musculoskeletal: No no symptoms reported, No As describe under HPI, No back pain, No gout, No joint pain, No joint swelling, No muscle pain, No muscle stiffness, No neck pain, No other Skin: No no symptoms reported, No As described under HPI, No change in color, No change in hair/nails, No dryness, No lesions, No lumps, No rash, No other, No skin related problems, No ulcerations, No rash on exposed areas, No ulcerations on exposed areas Psychiatric/Neurological: As described under HPI Hematologic: No no symptoms reported, No As described under HPI, No anemia, No blood clots, No easy bleeding, No easy bruising, No swollen glands, No other, No bleeding abnormalities [id number] Hx Patient Social History Alcohol Use: Denies Use Recreational Drug Use: No Smoking Status: Never a Smoker 2nd Hand Smoke Exposure: No Recent Foreign Travel: No Recent Infectious Disease Expo: No Hospitalization with Isolation: Denies Physical Abuse Screen: No Sexual Abuse: No Immunizations Up To Date Tetanus Booster (TDap): Unknown Past Medical History PMH As described under Assessment. Allergies and Home Medications Allergies Coded Allergies: Penicillins (Verified Allergy, Unknown, 05/23/06) Home Medications Azithromycin 250 Mg Tablet, 250 MG PO DAILY, (Reported) FILLED 09/15/17 #6 FOR A 5 DAY THERAPY Insulin Aspart 300 Units/3 Ml Solution, SQ UD, (Reported) PATIENT INJECTS 2 UNITS PER CARBOHYDRATE WITH MEALS Insulin Detemir 100 Unit/1 Ml Insuln.pen, 15 UNITS SQ HS, (Reported) Physical Exam-Cardiology Physical Exam Vital Signs/I&O Vital Sign - Last 12Hours 09/17/17 09/17/17 09/17/17 09/17/17 00:15 00:30 00:45 01:00 Pulse 129 129 125 124 Resp 23 32 21 23 B/P (MAP) 101/75 (84) 97/80 (86) 127/87 (100) 134/78 (96) Pulse Ox 100 100 100 100 O2 Delivery Room Air Room Air Room Air Room Air 09/17/17 09/17/17 09/17/17 09/17/17 01:00 01:00 01:15 01:30 Temp 98.4 Pulse 124 128 125 Resp 23 25 B/P (MAP) 126/83 (97) 127/80 (96) Pulse Ox 100 100 O2 Delivery Room Air Room Air 09/17/17 09/17/17 09/17/17 09/17/17 01:45 02:00 02:00 02:15 Temp 98.7 Pulse 126 125 125 Resp 22 24 B/P (MAP) 113/75 (88) 90/70 (77) 106/67 (80) Pulse Ox 100 100 99 O2 Delivery Room Air Room Air Room Air 09/17/17 09/17/17 09/17/17 09/17/17 02:30 02:45 03:00 03:15 Pulse 124 122 123 121 Resp 24 23 21 22 B/P (MAP) 116/73 (87) 113/72 (86) 116/70 (85) 98/64 (75) Pulse Ox 100 99 100 99 O2 Delivery Room Air Room Air Room Air Room Air 09/17/17 09/17/17 09/17/17 09/17/17 03:30 03:45 04:00 04:00 Pulse 121 121 121 Resp 24 15 B/P (MAP) 113/68 (83) 107/65 (79) 94/56 (69) Pulse Ox 99 98 96 99 O2 Delivery Room Air Room Air Room Air Room Air 09/17/17 09/17/17 09/17/17 09/17/17 04:05 04:15 04:30 04:45 Temp 99.1 Pulse 124 126 114 Resp 22 B/P (MAP) 123/84 (97) 102/77 (85) 110/68 (82) Pulse Ox 99 99 100 O2 Delivery Room Air Room Air Room Air 09/17/17 09/17/17 09/17/17 09/17/17 05:00 05:15 05:30 05:45 Pulse 113 122 122 123 Resp 23 18 19 26 B/P (MAP) 95/67 (76) 95/67 (76) 124/83 (97) 110/65 (80) Pulse Ox 100 99 99 100 O2 Delivery Room Air Room Air Room Air Room Air 09/17/17 09/17/17 09/17/17 09/17/17 06:00 06:15 06:30 06:45 Pulse 113 110 106 110 Resp 19 B/P (MAP) 99/59 (72) 107/64 (78) 119/74 (89) 93/60 (71) Pulse Ox 98 98 99 98 O2 Delivery Room Air Room Air Room Air Room Air 09/17/17 09/17/17 09/17/17 09/17/17 07:00 07:00 07:00 08:00 Temp 99.6 Pulse 110 111 108 Resp 10 22 B/P (MAP) 104/70 (81) 110/72 (85) Pulse Ox 99 98 O2 Delivery Room Air Room Air 09/17/17 09/17/17 09/17/17 09/17/17 08:00 09:00 10:00 11:00 Pulse 107 107 101 Resp 22 11 22 B/P (MAP) 120/77 (91) 126/84 (98) 120/81 (94) Pulse Ox 99 98 99 98 O2 Delivery Room Air Room Air Room Air Room Air Capillary Refill : Greater Than 3 Seconds Constitutional: No appears stated age, No AAO x 3, No apparent distress, No PERRL, No well-developed, No well-nourished, No other HEENT: No PERRL, No normal ENT inspection, No TMs normal, No pharynx normal, No scleral icterus (R), No scleral icterus (L), No pale conjunctivae (R), No pale conjunctivae (L), No photophobia, No TM abnormal (R), No TM abnormal (L), No pharyngeal erythema, No tonsillar exudate, No other, No discharge, No EOMI, No hearing is well preserved, No hard of hearing, No oral hygience is good, No ulceration, No xanthelasmas are seen Neck: No non-tender, No full range of motion, No supple, No normal inspection, No carotid bruit, No limited range of motion, No lymphadenopathy (R), No lymphadenopathy (L), No tender lateral, No tender midline, No thyromegaly, No other, No carotid pulses are 2 + bilaterally, No with good upstrokes Respiratory: No accessory muscle use, No respiratory distress, No chest tender , No chest expansion is symmetric, No chest is bilaterally symmetric, No lungs clear to percussion, No lungs clear to auscultation, No crackles, No rhonchi, No rales, No stridor, No wheezing, No pleural rub, No other Cardiovascular: regular rate-rhythm, No irregularly irregular, No extra beats, No parasternal heave is noted, No JVD, No edema, No bradycardia, tachycardia, No point of maximal impulse, No cardiac thrills are palpable, S1 and S2, No gallop/S3, No gallop/S4, No diastolic murmur, No systolic murmur, No friction rub, No click, No other Gastrointestinal: No tender, No soft, No round, No distended, No pulsatile mass , No organomegaly, No guarding, No rebound, No tenderness, No hernia, No mass, No audible bowel sounds, No abnormal bowel sounds, No abdominal bruits, No spleenomegaly, No other Rectal: deferred Extremities: No normal range of motion, No non-tender, No normal inspection, No pedal edema, No calf tenderness, No normal capillary refill, No pelvis stable , No calf tenderness, No inflammation, No pedal edema, No slow capillary refill , No swelling, No other, No abrasion, No clubbing, No cyanosis, No ecchymosis, No laceration, No no lower extremity edema bilateral, No significant edema, No tenderness, No wound Neurologic/Psychiatric: No mill washer II-XII nml as tested, No no motor/sensory deficits, No alert, No normal mood/affect, No oriented x 3, No abnormal cerebellar tests, No abnormal mill [place]her II-XII, No abnormal gait, No aphasia, No EOM palsy, No facial droop, No motor weakness, No sensory deficit, No depressed affect, No disoriented x 3, No other, No grossly intact, No power is 5/5 both on sides Skin: warm/dry, pallor Data Review Labs Laboratory Tests 09/16/17 20:46: Glucometer > 600*H 09/16/17 20:51: White Blood Count 31.4*H, Red Blood Count 4.89, Hemoglobin 14.3, Hematocrit 44, Mean Corpuscular Volume 90, Mean Corpuscular Hemoglobin 29, Mean Corpuscular Hemoglobin Concent 32, Red Cell Distribution Width 12.8, Platelet Count 457H, Mean Platelet Volume 9.6, Neutrophils (%) (Auto) 72, Lymphocytes (%) (Auto) 23, Monocytes (%) (Auto) 4, Eosinophils (%) (Auto) 1, Basophils (%) (Auto) 1, Neutrophils # (Auto) 22.5H, Lymphocytes # (Auto) 7.2H, Monocytes # (Auto) 1.3H, Eosinophils # (Auto) 0.2, Basophils # (Auto) 0.2H, Neutrophils % (Manual) 68, Lymphocytes % (Manual) 30, Monocytes % (Manual) 1, Eosinophils % (Manual) 1, Platelet Estimate INCREASED, Poikilocytosis SLIGHT, [place] Cells SLIGHT, Sodium Level 133L, Potassium Level 6.1H, Chloride Level 94L, Carbon Dioxide Level < 5*L , Anion Gap 34H, Blood Urea Nitrogen 16, Creatinine 1.82H, Estimat Glomerular Filtration Rate 45, BUN/Creatinine Ratio 9, Glucose Level 753*H, Calcium Level 9.5, Magnesium Level 2.1, Total Bilirubin 0.3, Aspartate Amino Transf (AST/SGOT ) 68H, Alanine Aminotransferase (ALT/SGPT) 86H, Alkaline Phosphatase 189H, Total Protein 8.4H, Albumin 3.9, Thyroid Stimulating Hormone (TSH) 0.00L, Serum Alcohol < 10 09/16/17 21:05: Blood Gas Puncture Site RT BRACHIAL, Blood Gas Patient Temperature 97.5, Arterial Blood pH 6.92*L, Arterial Blood Partial Pressure CO2 11*L, Arterial Blood Partial Pressure O2 484H, Arterial Blood HCO3 2*L, Arterial Blood Total CO2 2.4L, Arterial Blood Oxygen Saturation 100, Arterial Blood Base Excess - 28.2L, Bony Test NA, Blood Gas Ventilator Setting NO, Blood Gas Inspired Oxygen 100%, Lactic Acid Level 5.41*H 09/16/17 21:14: Urine Color YELLOW, Urine Clarity CLEAR, Urine pH 5, Urine Specific [place] 1.020, Urine Protein 2+H, Urine Glucose (UA) 4+H, Urine Ketones 4+H, Urine Nitrite NEGATIVE, Urine Bilirubin NEGATIVE, Urine Urobilinogen NORMAL, Urine Leukocyte Esterase NEGATIVE, Urine RBC (Auto) 5+H, Urine RBC 10-25H, Urine WBC NONE, Urine Crystals PRESENTH, Urine Amorphous Sediment FEW TARAS URATESH, Urine Bacteria NEGATIVE, Urine Casts NONE, Urine Mucus NEGATIVE, Urine Culture Indicated NO, Urine Opiates Screen NEGATIVE, Urine Oxycodone Screen NEGATIVE, Urine Methadone Screen NEGATIVE, Urine Propoxyphene Screen NEGATIVE, Urine Barbiturates Screen NEGATIVE, Ur Tricyclic Antidepressants Screen NEGATIVE, Urine Phencyclidine Screen NEGATIVE, Urine Amphetamines Screen NEGATIVE, Urine Methamphetamines Screen NEGATIVE, Urine Benzodiazepines Screen NEGATIVE, Urine Cocaine Screen NEGATIVE, Urine Cannabinoids Screen NEGATIVE 09/16/17 21:20: Prothrombin Time 17.5H, INR Comment 1.4, Activated Partial Thromboplast Time 24 09/16/17 21:21: Glucometer > 600*H 09/16/17 21:48: Glucometer 524*H 09/16/17 22:05: Blood Gas Puncture Site LEFT RADIAL, Blood Gas Patient Temperature 98.0, Arterial Blood pH 7.08*L, Arterial Blood Partial Pressure CO2 20L, Arterial Blood Partial Pressure O2 127H, Arterial Blood HCO3 6*L, Arterial Blood Total CO2 6.3L, Arterial Blood Oxygen Saturation 99, Arterial Blood Base Excess -22.6L , Bony Test YES-POS, Blood Gas Ventilator Setting NO, Blood Gas Inspired Oxygen 100% 09/16/17 22:17: Glucometer 454*H 09/16/17 23:20: Sodium Level 144, Potassium Level 3.9, Chloride Level 114#H, Carbon Dioxide Level 7*L, Anion Gap 23H, Blood Urea Nitrogen 15, Creatinine 1.11, Estimat Glomerular Filtration Rate > 60, BUN/Creatinine Ratio 14, Glucose Level 346H, Lactic Acid Level 3.87*H, Calcium Level 6.7L 09/16/17 23:35: Hemoglobin A1c 8.9H 09/16/17 23:48: Glucometer 323H 09/17/17 01:15: Sodium Level 144, Potassium Level 3.8, Chloride Level 115H, Carbon Dioxide Level 9*L, Anion Gap 20H, Blood Urea Nitrogen 12, Creatinine 1.02, Estimat Glomerular Filtration Rate > 60, BUN/Creatinine Ratio 12, Glucose Level 248H, Lactic Acid Level 3.71*H, Calcium Level 7.0L 09/17/17 01:21: Glucometer 233H 09/17/17 02:16: Glucometer 182H 09/17/17 03:15: Sodium Level 142, Potassium Level 3.8, Chloride Level 115H, Carbon Dioxide Level 15L, Anion Gap 12, Blood Urea Nitrogen 9, Creatinine 0.93, Estimat Glomerular Filtration Rate > 60, BUN/Creatinine Ratio 10, Glucose Level 171H, Lactic Acid Level 3.49*H, Calcium Level 7.0L 09/17/17 03:21: Glucometer 159H 09/17/17 04:15: Glucometer 170H 09/17/17 05:10: White Blood Count 13.7H, Red Blood Count 3.57L, Hemoglobin 10.4#L, Hematocrit 30L, Mean Corpuscular Volume 84, Mean Corpuscular Hemoglobin 29, Mean Corpuscular Hemoglobin Concent 35, Red Cell Distribution Width 12.2, Platelet Count 223, Mean Platelet Volume 8.7, Neutrophils (%) (Auto) 82H, Lymphocytes (% ) (Auto) 13, Monocytes (%) (Auto) 6, Eosinophils (%) (Auto) 0, Basophils (%) ( Auto) 0, Neutrophils # (Auto) 11.2H, Lymphocytes # (Auto) 1.7, Monocytes # (Auto ) 0.8, Eosinophils # (Auto) 0.0, Basophils # (Auto) 0.0, Sodium Level 142, Potassium Level 3.6, Chloride Level 115H, Carbon Dioxide Level 20L, Anion Gap 7 , Blood Urea Nitrogen 8, Creatinine 0.84, Estimat Glomerular Filtration Rate > 60, BUN/Creatinine Ratio 10, Glucose Level 141H, Lactic Acid Level 1.68, Calcium Level 7.0L, Phosphorus Level 0.8*L, Magnesium Level 1.3L 09/17/17 05:14: Glucometer 134H 09/17/17 05:18: Blood Gas Puncture Site LEFT BRACHIAL, Blood Gas Patient Temperature 98.6, Arterial Blood pH 7.39, Arterial Blood Partial Pressure CO2 30L, Arterial Blood Partial Pressure O2 102H, Arterial Blood HCO3 18L, Arterial Blood Total CO2 18.5L, Arterial Blood Oxygen Saturation 100, Arterial Blood Base Excess -6.5L, Bony Test NA, Blood Gas Ventilator Setting NO, Blood Gas Inspired Oxygen ROOM AIR 09/17/17 05:46: Glucometer 138H 09/17/17 06:45: Glucometer 201H 09/17/17 08:04: Glucometer 167H 09/17/17 08:20: Sodium Level 139, Potassium Level 3.7, Chloride Level 114H, Carbon Dioxide Level 19L, Anion Gap 6, Blood Urea Nitrogen 7, Creatinine 0.80, Estimat Glomerular Filtration Rate > 60, BUN/Creatinine Ratio 9, Glucose Level 156H, Calcium Level 7.0L 09/17/17 09:01: Glucometer 156H 09/17/17 10:08: Glucometer 166H 09/17/17 11:06: Glucometer 123H 09/17/17 11:32: Glucometer 126H 09/17/17 11:45: Sodium Level 138, Potassium Level 3.7, Carbon Dioxide Level 21, Anion Gap 5, Blood Urea Nitrogen 5L, Creatinine 0.74, Estimat Glomerular Filtration Rate > 60 , BUN/Creatinine Ratio 7, Glucose Level 123H, Calcium Level 7.2L, Phosphorus Level 1.2L, Magnesium Level 2.2 Microbiology 09/16/17 Influenza Types A,B Antigen (KAMILLA) - Final, Complete ECG Impression ECG Comment at least 2 EKGs done. One EKG showed SVT with mild irregularity likely atrial tachycardia. Another EKG shows SVT with possible sinus tachycardia. Currently the patient as an sinus tachycardia at 102 BPM. A/P-Cardiology Assessment/Admission Diagnosis diabetic ketoacidosis, Sepsis, Shock, Tachycardia, atrial tachycardia, Electrolyte abnormalities including hyperkalemia, ALICIA Plan diabetic ketoacidosis, Sepsis, Shock, Tachycardia, atrial tachycardia, Electrolyte abnormalities - patient is being treated for DKA by the primary team and Dr. Vyas with IV fluids, IV insulin, aggressive electrolyte repletion.much improved. - Blood pressure is much stable. Likely due to septic shock and dehydration. Atrial tachycardia with rapid ventricular rate likely contribution to to hypotension as well. Patient was kept on vasopressors overnight. - patient likely had atrial tachycardia with rapid ventricular rate which is in response to severe systemic illness. He did not respond to adenosine boluses. Patient is in sinus tachycardia at this point in time. I will recommend an echocardiogram. No rate controlling agents are recommended since this is very likely in response to severe systemic illness. - acute kidney injury likely secondary to dehydration. Continue IV fluids. Thank you for your consultation. Please call me if you have any questions. Tiffanie Blum MD, FACP, FACC, FSCAI, FHRS, CCDS Interventional Cardiology Cardiac Electrophysiology Vascular Medicine and Endovascular Interventions Clinical Quality Measures DVT/VTE Risk/Contraindication: Risk Factor Score Per Nursin RFS Level Per Nursing on Admit: 4+=Very High Dangelo BLUM MD Sep 17, 2017 12:00 pm
[2017-09-17] MEDS ORDERED: INSU100I14 SQ (12:03)
[2017-09-17] MEDS ORDERED: AZIT250T12 PO (12:03)
[2017-09-17] MEDS ORDERED: INSU100I29 SQ (12:03)
[2017-09-17 12:06] LABS: BASOPHILS % (AUTO) 0 % (0-10); EOSINOPHILS # (AUTO) 0.1 10^3/uL (0.0-0.3); EOSINOPHILS % (AUTO) 1 % (0-10); LYMPHOCYTES # (AUTO) 2.4 X 10^3 (1.0-4.0); LYMPHOCYTES % (AUTO) 21 % (12-44); MEAN CORPUSCULAR HEMOGLOBIN 29 PG (25-34); MEAN CORPUSCULAR HGB CONC 35 G/DL (32-36); MEAN CORPUSCULAR VOLUME 84 FL (80-99); MEAN PLATELET VOLUME 8.7 FL (7.4-10.4); MONOCYTES # (AUTO) 0.9 X 10^3 (0.0-1.0); MONOCYTES % (AUTO) 8 % (0-12); NEUTROPHILS # (AUTO) 8.5 X 10^3 (1.8-7.8); NEUTROPHILS % (AUTO) 71 % (42-75); PLATELET COUNT 205 10^3/uL (130-400); RED BLOOD COUNT 3.52 10^6/uL (4.35-5.85); RED CELL DISTRIBUTION WIDTH 12.4 % (10.0-14.5); WHITE BLOOD COUNT 11.9 10^3/uL (4.3-11.0)
[2017-09-17 12:09] LABS: ANION GAP 5 MMOL/L (5-14); BLOOD UREA NITROGEN 5 MG/DL (7-18); BUN/CREATININE RATIO 7; CALCIUM 7.2 MG/DL (8.5-10.1); CARBON DIOXIDE 21 MMOL/L (21-32); CHLORIDE 112 MMOL/L (98-107); CREATININE SERUM 0.74 MG/DL (0.60-1.30); GFR ESTIMATED > 60; GLUCOSE 123 MG/DL (70-105); MAGNESIUM 2.2 MG/DL (1.8-2.4); PHOSPHORUS 1.2 MG/DL (2.3-4.7); POTASSIUM 3.7 MMOL/L (3.6-5.0); SODIUM 138 MMOL/L (135-145)
[2017-09-17] MEDS ORDERED: inSUlin DETERMIR 1 UNIT/0.01 ML (LEVEMIR) CHARGE PER UNIT SQ ONE (12:30)
[2017-09-17] MEDS ORDERED: CALCIUM GLUC. 10% 4.65 MEQ/10 ML VIAL IV ONE (12:45)
[2017-09-17] MEDS ORDERED: POTASSIUM PHOSPHATE INJ 30 MM in NS (IVPB) 250 ML IV ONE (12:45)
[2017-09-17] MEDS: inSUlin ASPART (NovoLOG) 1 UNIT/0.01 ML (CHARGE PER UNIT) SC SCH ×2 (15:03→21:43)
[2017-09-17] MEDS: ONDANSETRON 4 MG/2 ML (SDV) Z0FRAN IVP PRN (20:26)
[2017-09-17] MEDS ORDERED: inSUlin DETERMIR 1 UNIT/0.01 ML (LEVEMIR) CHARGE PER UNIT SQ SCH (21:00)
[2017-09-18] VITALS (14 sets, daily range): BP systolic 120–159; BP diastolic 70–104
[2017-09-18] MEDS: 1/2 NS W/KCL 20 MEQ/L 1,000 ML IV SCH ×2 (01:54→07:23)
[2017-09-18] MEDS: 1/2 NS IV SOLUTION 1,000 ML IV SCH ×2 (01:54→07:23)
[2017-09-18] MEDS: PHENYLEPHRINE INJECTION 10 MG in D5W IV SOLUTION (EXCEL) 250 ML IV SCH ×2 (01:54→07:24)
[2017-09-18] MEDS: D5 1/2 NS W/KCL 20 MEQ/L 1,000 ML IV SCH ×3 (01:54→17:47)
[2017-09-18 04:58] LABS: BASOPHILS % (AUTO) 0 % (0-10); EOSINOPHILS # (AUTO) 0.1 10^3/uL (0.0-0.3); EOSINOPHILS % (AUTO) 2 % (0-10); LYMPHOCYTES # (AUTO) 2.2 X 10^3 (1.0-4.0); LYMPHOCYTES % (AUTO) 41 % (12-44); MEAN CORPUSCULAR HEMOGLOBIN 30 PG (25-34); MEAN CORPUSCULAR HGB CONC 35 G/DL (32-36); MEAN CORPUSCULAR VOLUME 84 FL (80-99); MEAN PLATELET VOLUME 8.6 FL (7.4-10.4); MONOCYTES # (AUTO) 0.3 X 10^3 (0.0-1.0); MONOCYTES % (AUTO) 6 % (0-12); NEUTROPHILS # (AUTO) 2.8 X 10^3 (1.8-7.8); NEUTROPHILS % (AUTO) 51 % (42-75); PLATELET COUNT 179 10^3/uL (130-400); RED BLOOD COUNT 3.56 10^6/uL (4.35-5.85); RED CELL DISTRIBUTION WIDTH 12.6 % (10.0-14.5); WHITE BLOOD COUNT 5.4 10^3/uL (4.3-11.0)
[2017-09-18] MEDS: DEXTROSE 10% IV SOLUTION 1,000 ML IV SCH (05:00)
[2017-09-18 05:17] LABS: ANION GAP 5 MMOL/L (5-14); BLOOD UREA NITROGEN 3 MG/DL (7-18); BUN/CREATININE RATIO 5; CALCIUM 7.3 MG/DL (8.5-10.1); CARBON DIOXIDE 19 MMOL/L (21-32); CHLORIDE 113 MMOL/L (98-107); CREATININE SERUM 0.62 MG/DL (0.60-1.30); GFR ESTIMATED > 60; GLUCOSE 109 MG/DL (70-105); MAGNESIUM 1.9 MG/DL (1.8-2.4); PHOSPHORUS 1.7 MG/DL (2.3-4.7); POTASSIUM 3.8 MMOL/L (3.6-5.0); SODIUM 137 MMOL/L (135-145)
[2017-09-18] MEDS: POTASSIUM CL 10MEQ/50ML IVPB 50 ML IV SCH (06:00)
[2017-09-18] MEDS ORDERED: POTASSIUM CL 10MEQ/50ML IVPB 50 ML IV SCH (06:00)
[2017-09-18] MEDS ORDERED: MAGNESIUM 1 GM/100 ML IVPB 100 ML IV SCH (06:00)
[2017-09-18] MEDS: KCL 20 MEQ TAB (K-DUR) PO SCH (06:00)
[2017-09-18] MEDS: MAGNESIUM 1 GM/100 ML IVPB 100 ML IV SCH (06:00)
[2017-09-18] MEDS ORDERED: KCL 20 MEQ TAB (K-DUR) PO SCH (06:00)
--- NOTE | 2017-09-18 08:10 | Diagnostic Imaging Report ---
INDICATION: Dyspnea 0620 hours Portable AP upright view of the chest is obtained. Since the study of one day earlier, there has been an increase in interstitial prominence throughout the lungs with increasing central pulmonary densities suggesting probable edema or pneumonitis. No lobar consolidation is identified. There is no evidence of pneumothorax or significant pleural fluid. IMPRESSION: Increasing interstitial markings and central pulmonary densities which may be due to edema and/or pneumonitis. Dictated by: Dictated on workstation # [id number]
[2017-09-18] MEDS: CEFEPIME INJECTION 2,000 MG in NS (IVPB) 50 ML IV SCH (08:20)
[2017-09-18] MEDS: inSUlin ASPART (NovoLOG) 1 UNIT/0.01 ML (CHARGE PER UNIT) SC SCH ×3 (09:24→17:48)
[2017-09-18] MEDS: ONDANSETRON 4 MG/2 ML (SDV) Z0FRAN IVP PRN ×2 (09:41→15:14)
[2017-09-18] MEDS ORDERED: TROUGH ORDER-PHARMACY XX NR (10:15)
--- NOTE | 2017-09-18 10:35 | Progress Note (SOAP) ---
Subjective Subjective/Events-last exam Patient feeling better this AM but still having some nausea and only ate a small portion of his breakfast. Denies any pain. Review of Systems Date Seen by Provider: Sep 18, 2017 Time Seen by Provider: 09:45 Pulmonary: No Dyspnea, No Cough Cardiovascular: No: Chest Pain, Palpitations Gastrointestinal: Nausea, No: Abdominal Pain Objective Exam Last Set of Vital Signs Vital Signs Date Time Temp Pulse Resp B/P (MAP) Pulse Ox O2 Delivery O2 Flow Rate FiO2 09/18/17 09:00 92 11 138/100 (113) 100 Room Air 09/18/17 08:15 97.5 09/16/17 21:33 21.00 Capillary Refill : Greater Than 3 Seconds I&O Intake and Output 09/19/17 00:00 Intake Total 1750 ml Output Total 1650 ml Balance 100 ml Intake Oral 650 ml IV Total 1100 ml Output Urine Total 1650 ml # Bowel Movements 6 General: Alert, Oriented X3, Cooperative Neck: Supple Lungs: Clear to Auscultation, Normal Air Movement Heart: Regular Rate, No Murmurs Abdomen: Normal Bowel Sounds, Soft, No Tenderness, No Hepatosplenomegaly Extremities: No Edema, Normal Pulses, No Tenderness/Swelling Skin: Other (Bilateral wounds present on shins, non ttp, Mild erythema around the edges) Neuro: Normal Speech Psych/Mental Status: Mental Status NL, Mood NL Results/Procedures Lab Laboratory Tests 09/17/17 11:06: Glucometer 123H 09/17/17 11:32: Glucometer 126H 09/17/17 11:45: White Blood Count 11.9H, Red Blood Count 3.52L, Hemoglobin 10.2L, Hematocrit 29L , Mean Corpuscular Volume 84, Mean Corpuscular Hemoglobin 29, Mean Corpuscular Hemoglobin Concent 35, Red Cell Distribution Width 12.4, Platelet Count 205, Mean Platelet Volume 8.7, Neutrophils (%) (Auto) 71, Lymphocytes (%) (Auto) 21, Monocytes (%) (Auto) 8, Eosinophils (%) (Auto) 1, Basophils (%) (Auto) 0, Neutrophils # (Auto) 8.5H, Lymphocytes # (Auto) 2.4, Monocytes # (Auto) 0.9, Eosinophils # (Auto) 0.1, Basophils # (Auto) 0.0, Sodium Level 138, Potassium Level 3.7, Chloride Level 112H, Carbon Dioxide Level 21, Anion Gap 5, Blood Urea Nitrogen 5L, Creatinine 0.74, Estimat Glomerular Filtration Rate > 60, BUN/ Creatinine Ratio 7, Glucose Level 123H, Calcium Level 7.2L, Phosphorus Level 1.2L, Magnesium Level 2.2 09/17/17 12:38: Glucometer 144H 09/17/17 13:48: Glucometer 121H 09/17/17 14:59: Glucometer 136H 09/17/17 16:29: Glucometer 116H 09/17/17 19:34: Glucometer 131H 09/18/17 00:06: Glucometer 73 09/18/17 04:19: Glucometer 129H 09/18/17 04:50: White Blood Count 5.4, Red Blood Count 3.56L, Hemoglobin 10.5L, Hematocrit 30L, Mean Corpuscular Volume 84, Mean Corpuscular Hemoglobin 30, Mean Corpuscular Hemoglobin Concent 35, Red Cell Distribution Width 12.6, Platelet Count 179, Mean Platelet Volume 8.6, Neutrophils (%) (Auto) 51, Lymphocytes (%) (Auto) 41, Monocytes (%) (Auto) 6, Eosinophils (%) (Auto) 2, Basophils (%) (Auto) 0, Neutrophils # (Auto) 2.8, Lymphocytes # (Auto) 2.2, Monocytes # (Auto) 0.3, Eosinophils # (Auto) 0.1, Basophils # (Auto) 0.0, Sodium Level 137, Potassium Level 3.8, Chloride Level 113H, Carbon Dioxide Level 19L, Anion Gap 5, Blood Urea Nitrogen 3L, Creatinine 0.62, Estimat Glomerular Filtration Rate > 60, BUN/ Creatinine Ratio 5, Glucose Level 109H, Calcium Level 7.3L, Phosphorus Level 1.7L, Magnesium Level 1.9 09/18/17 08:18: Glucometer 71 Microbiology 09/16/17 Blood Culture - Preliminary, Resulted No growth 09/16/17 Influenza Types A,B Antigen (KAMILLA) - Final, Complete Assessment/Plan Assessment/Plan Plan Diabetic ketoacidosis- pH 6.91 on admission with bicarb of 2 and glucose over 700 -Reportedly no insulin use in last 8 days -Has received 4 liters of NS and 40 units insulin in ER, start DKA protocol in ICU 09/17- Essentially resolved this am with normal anion gap and pH 7.39 this am. Bicarb still just below normal, continue insulin drip until normalized, then start 20 units of levemir 2 hours before d/c of insulin drip and resume home mealtime insulin with sliding scale for meals 09/18: Poor appetite, low blood sugar this AM with nausea, Labs resolved Possible septic shock- WBC over 30 with ALICIA and hypotension in spite of fluid resuscitation -Source unclear, urine without evidence of infection, CXR pending and flu swab pending, consider cellulitis with chronic wounds on legs with some surrounding erythema -Start antibiotics for unknown source, phenylephrine for hypotension due to marked tachycardia per Dr. Blum -Consult Dr. Heredia/Surgery for central line placement for pressors 09/16- WBC markedly improved as well as resolution of lactic acidosis and improved HR and RR. Not clear if true infection versus severe DKA. Continue abx while waiting on blood culture. Flu swab negative, CXR without infiltrate. 09/18: D/c antibiotics and monitor for infection Lactic acidosis- due to septic shock versus DKA with severe hypovolemia and poor tissue perfusion -4 liters bolus given in ER, continue aggressive fluid resuscitation, anticipate need for 8 liters or more -Recheck with next labs Resolved Acute renal insufficiency- likely secondary to hypovolemia, monitor with recurring labs Resolved Tachycardia- severe with heart rate 190 to over 200, Cardiology contacted by ER physician, phenylephrine drip for hypotension, IVF for underlying conditions noted above 09/17- significantly improved with massive amount of fluid resuscitation, still slightly tachycardic, continue to monitor 09/18: Resolved Hypoxia- on admission, unclear etiology, currently on cpap at 7 with normal SpO2 , RT consulted, CXR pending 09/17- CXR without infiltrate, no hypoxia after arrival to ICU, stable on room air Altered mental status- likely due to underlying severe illness noted above, monitor closely RESOLVED Hyperkalemia- anticipate resolution with IVF and insulin, monitor closely for drop and need for replacement per DKA protocol RESOLVED Hyponatremia- pseudohyponatremia due to hyperglycemia, corrected sodium actually 149 which is hypernatremic, if remains elevated after initial fluids will need to change to 1/2NS, follow-up recurring labs RESOLVED Hypophosphatemia- replacement per eICU orders 09/17 Hypomagnesemia- replacement per eICU orders 09/17 Chronic leg wounds- will likely need wound care when stabilized 09/18: Wound care consult today DVT ppx- enoxaparin Disp: Transfer to floor today, likely home tomorrow if appetite and blood sugars improve Clinical Quality Measures DVT/VTE Risk/Contraindication: Risk Factor Score Per Nursin RFS Level Per Nursing on Admit: 4+=Very High SHAMIKA FERMIN MD Sep 18, 2017 10:35
--- NOTE | 2017-09-18 15:53 | Cardiology Progress Note ---
Cardiology SOAP Progress Note Subjective: Feels nauseous. Objective: I&O/Vital Signs Vital Sign - Last 12Hours 09/18/17 09/18/17 09/18/17 09/18/17 04:00 04:00 05:00 06:00 Temp 98.3 Pulse 96 98 107 Resp 23 31 19 B/P (MAP) 128/90 (103) 128/81 (97) 133/88 (103) Pulse Ox 96 99 95 97 O2 Delivery Room Air Room Air Room Air Room Air 09/18/17 09/18/17 09/18/17 09/18/17 07:00 07:00 08:10 08:15 Temp 97.5 Pulse 93 93 92 Resp 21 24 B/P (MAP) 128/104 (112) 134/98 (110) Pulse Ox 96 98 98 O2 Delivery Room Air Room Air Room Air 09/18/17 09/18/17 09/18/17 09:00 09:55 12:00 Temp 97.8 97.8 Pulse 92 94 80 Resp 11 20 18 B/P (MAP) 138/100 (113) 120/70 (87) 159/98 (118) Pulse Ox 100 98 99 O2 Delivery Room Air Room Air Room Air Intake and Output 09/18/17 00:00 Intake Total 1630 ml Output Total 500 ml Balance 1130 ml Weight (Pounds): 145 Weight (Ounces): 9.0 Weight (Calculated Kilograms): 65.969098 Constitutional: No appears stated age, No AAO x 3, No apparent distress, No PERRL, No well-developed, No well-nourished, No other Respiratory: No accessory muscle use, No respiratory distress, No chest tender , No chest expansion is symmetric, No chest is bilaterally symmetric, No lungs clear to percussion, No lungs clear to auscultation, No crackles, No rhonchi, No rales, No stridor, No wheezing, No pleural rub, No other Cardiovascular: regular rate-rhythm, No irregularly irregular, No extra beats, No parasternal heave is noted, No JVD, No edema, No bradycardia, tachycardia, No point of maximal impulse, No cardiac thrills are palpable, S1 and S2, No gallop/S3, No gallop/S4, No diastolic murmur, No systolic murmur, No friction rub, No click, No other Gastrointestional: No tender, No soft, No round, No distended, No pulsatile mass, No organomegaly, No guarding, No rebound, No tenderness, No hernia, No mass, No audible bowel sounds, No abnormal bowel sounds, No abdominal bruits, No spleenomegaly, No other Extremities: No normal range of motion, No non-tender, No normal inspection, No pedal edema, No calf tenderness, No normal capillary refill, No pelvis stable , No calf tenderness, No inflammation, No pedal edema, No slow capillary refill , No swelling, No other, No abrasion, No clubbing, No cyanosis, No ecchymosis, No laceration, No no lower extremity edema bilateral, No significant edema, No tenderness, No wound Neurologic/Psychiatric: No chief crew scheduler II-XII nml as tested, No no motor/sensory deficits, No alert, No normal mood/affect, No oriented x 3, No abnormal cerebellar tests, No abnormal chief crew scheduler II-XII, No abnormal gait, No aphasia, No EOM palsy, No facial droop, No motor weakness, No sensory deficit, No depressed affect, No disoriented x 3, No other, No grossly intact, No power is 5/5 both on sides Skin: warm/dry, pallor Results/Procedures: Labs Laboratory Tests 09/17/17 16:29: Glucometer 116H 09/17/17 19:34: Glucometer 131H 09/18/17 00:06: Glucometer 73 09/18/17 04:19: Glucometer 129H 09/18/17 04:50: White Blood Count 5.4, Red Blood Count 3.56L, Hemoglobin 10.5L, Hematocrit 30L, Mean Corpuscular Volume 84, Mean Corpuscular Hemoglobin 30, Mean Corpuscular Hemoglobin Concent 35, Red Cell Distribution Width 12.6, Platelet Count 179, Mean Platelet Volume 8.6, Neutrophils (%) (Auto) 51, Lymphocytes (%) (Auto) 41, Monocytes (%) (Auto) 6, Eosinophils (%) (Auto) 2, Basophils (%) (Auto) 0, Neutrophils # (Auto) 2.8, Lymphocytes # (Auto) 2.2, Monocytes # (Auto) 0.3, Eosinophils # (Auto) 0.1, Basophils # (Auto) 0.0, Sodium Level 137, Potassium Level 3.8, Chloride Level 113H, Carbon Dioxide Level 19L, Anion Gap 5, Blood Urea Nitrogen 3L, Creatinine 0.62, Estimat Glomerular Filtration Rate > 60, BUN/ Creatinine Ratio 5, Glucose Level 109H, Calcium Level 7.3L, Phosphorus Level 1.7L, Magnesium Level 1.9 09/18/17 08:18: Glucometer 71 09/18/17 11:31: Glucometer 205H Microbiology 09/16/17 Blood Culture - Preliminary, Resulted No growth 09/17/17 MRSA Screen - Final, Complete MRSA not isolated A/P: Assessment/Dx: diabetic ketoacidosis, Sepsis, Shock, Tachycardia, atrial tachycardia, Cardiomyopathy Electrolyte abnormalities including hyperkalemia, ALICIA Plan: diabetic ketoacidosis, Sepsis, Shock, resolved now Tachycardia, atrial tachycardia, Cardiomyopathy. Electrolyte abnormalities - patient is being treated for DKA by the primary team and Dr. Vyas with IV fluids, IV insulin, aggressive electrolyte repletion.much improved. - Blood pressure is much stable. Atrial tachycardia with rapid ventricular rate likely contribution to to hypotension as well. Patient required vasopressors on admission.. - patient likely had atrial tachycardia with rapid ventricular rate which is in response to severe systemic illness. He did not respond to adenosine boluses. Patient is in sinus tachycardia at this point in time. - Echocardiogram showed moderate systolic dysfunction with an EF of 35-40 percent. No valvular heart disease. Ischemia will be ruled out as an outpatient. Treatment for cardiomyopathy will be started. Lisinopril, beta lenny. - acute kidney injury likely secondary to dehydration. Much improved. Continue IV fluids. Thank you for your consultation. Please call me if you have any questions. Tiffanie Blum MD, FACP, FACC, FSCAI, FHRS, CCDS Interventional Cardiology Cardiac Electrophysiology Vascular Medicine and Endovascular Interventions Dangelo BLUM MD Sep 18, 2017 3:53 pm
[2017-09-18] MEDS ORDERED: CATHETER FLUSH 10 ML SYR IV PRN (16:00)
[2017-09-18 16:21] LABS: HIV AG AB SCREEN Non-Reactive (Non-Reactive)
--- NOTE | 2017-09-18 17:08 | Wound Care Progress Note ---
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 Objective Exam Last Set of Vital Signs Vital Signs Date Time Temp Pulse Resp B/P (MAP) Pulse Ox O2 Delivery O2 Flow Rate FiO2 09/18/17 16:05 99.2 91 18 138/97 (111) 94 Room Air 09/16/17 21:33 21.00 Capillary Refill : Greater Than 3 Seconds I&O Intake and Output 09/18/17 00:00 Intake Total 5137 ml Output Total 3275 ml Balance 1862 ml Intake Oral 2101 ml IV Total 3036 ml Output Urine Total 3275 ml # Bowel Movements 2 Daily Weight Change Unsure Results Lab Laboratory Tests 09/17/17 19:34: Glucometer 131H 09/18/17 00:06: Glucometer 73 09/18/17 04:19: Glucometer 129H 09/18/17 04:50: White Blood Count 5.4, Red Blood Count 3.56L, Hemoglobin 10.5L, Hematocrit 30L, Mean Corpuscular Volume 84, Mean Corpuscular Hemoglobin 30, Mean Corpuscular Hemoglobin Concent 35, Red Cell Distribution Width 12.6, Platelet Count 179, Mean Platelet Volume 8.6, Neutrophils (%) (Auto) 51, Lymphocytes (%) (Auto) 41, Monocytes (%) (Auto) 6, Eosinophils (%) (Auto) 2, Basophils (%) (Auto) 0, Neutrophils # (Auto) 2.8, Lymphocytes # (Auto) 2.2, Monocytes # (Auto) 0.3, Eosinophils # (Auto) 0.1, Basophils # (Auto) 0.0, Sodium Level 137, Potassium Level 3.8, Chloride Level 113H, Carbon Dioxide Level 19L, Anion Gap 5, Blood Urea Nitrogen 3L, Creatinine 0.62, Estimat Glomerular Filtration Rate > 60, BUN/ Creatinine Ratio 5, Glucose Level 109H, Calcium Level 7.3L, Phosphorus Level 1.7L, Magnesium Level 1.9 09/18/17 08:18: Glucometer 71 09/18/17 11:31: Glucometer 205H 09/18/17 16:08: Glucometer 117H Microbiology 09/16/17 Blood Culture - Preliminary, Resulted No growth 09/17/17 MRSA Screen - Final, Complete MRSA not isolated CARLYN TOWNSEND MD Sep 18, 2017 17:08
[2017-09-18] MEDS ORDERED: ENOXAPARIN 40 MG/0.4 ML (LOVENOX) SYR SC SCH (17:30)
[2017-09-18] MEDS: meTOprolol TARTRATE 25 MG (LOPRESSOR) TABLET PO SCH (20:55)
[2017-09-18] MEDS ORDERED: inSUlin DETERMIR 1 UNIT/0.01 ML (LEVEMIR) CHARGE PER UNIT SQ SCH (21:00)
[2017-09-19 00:52] VITALS: BP 146/88
[2017-09-19] MEDS: D5 1/2 NS W/KCL 20 MEQ/L 1,000 ML IV SCH ×2 (01:26→08:43)
[2017-09-19 04:15] VITALS: BP 134/94
[2017-09-19 06:12] LABS: BASOPHILS % (AUTO) 0 % (0-10); EOSINOPHILS # (AUTO) 0.1 10^3/uL (0.0-0.3); EOSINOPHILS % (AUTO) 1 % (0-10); LYMPHOCYTES # (AUTO) 2.2 X 10^3 (1.0-4.0); LYMPHOCYTES % (AUTO) 33 % (12-44); MEAN CORPUSCULAR HEMOGLOBIN 29 PG (25-34); MEAN CORPUSCULAR HGB CONC 35 G/DL (32-36); MEAN CORPUSCULAR VOLUME 84 FL (80-99); MEAN PLATELET VOLUME 9.6 FL (7.4-10.4); MONOCYTES # (AUTO) 0.4 X 10^3 (0.0-1.0); MONOCYTES % (AUTO) 5 % (0-12); NEUTROPHILS # (AUTO) 4.1 X 10^3 (1.8-7.8); NEUTROPHILS % (AUTO) 61 % (42-75); PLATELET COUNT 188 10^3/uL (130-400); RED BLOOD COUNT 3.82 10^6/uL (4.35-5.85); RED CELL DISTRIBUTION WIDTH 12.5 % (10.0-14.5); WHITE BLOOD COUNT 6.8 10^3/uL (4.3-11.0)
[2017-09-19 06:22] LABS: ANION GAP 7 MMOL/L (5-14); BLOOD UREA NITROGEN 2 MG/DL (7-18); BUN/CREATININE RATIO 4; CALCIUM 8.2 MG/DL (8.5-10.1); CARBON DIOXIDE 23 MMOL/L (21-32); CHLORIDE 108 MMOL/L (98-107); CREATININE SERUM 0.57 MG/DL (0.60-1.30); GFR ESTIMATED > 60; GLUCOSE 81 MG/DL (70-105); POTASSIUM 4.2 MMOL/L (3.6-5.0); SODIUM 138 MMOL/L (135-145)
[2017-09-19 08:00] VITALS: BP 143/95
[2017-09-19] MEDS: meTOprolol TARTRATE 25 MG (LOPRESSOR) TABLET PO SCH (08:43)
[2017-09-19] MEDS ORDERED: lisINopril 5 MG (PRINIVIL) TABLET PO SCH (09:00)
[2017-09-19] MEDS: inSUlin ASPART (NovoLOG) 1 UNIT/0.01 ML (CHARGE PER UNIT) SC SCH ×3 (09:02→16:11)
[2017-09-19] MEDS ORDERED: inSUlin ASPART (NovoLOG) 1 UNIT/0.01 ML (CHARGE PER UNIT) SC NR (09:05)
--- NOTE | 2017-09-19 10:19 | Discharge Summary ---
Diagnosis/Chief Complaint Date of Admission Sep 16, 2017 at 21:30 Date of Discharge Chief Complaint/HPI Chief Complaint/HPI Patient is unable to provide much history at this time, but does nod and shake his head and attempt to answer questions. Per family, he has not taken insulin in about 8 days. He has been having sinusitis type symptoms and reportedly was seen yesterday and treated for sinusitis. Today, his mother called him and he was not doing well, so she went to his house and found him to be very ill whereupon he was brought to the ER where he was found to have hypoxia, hypotension, tachycardia and acidosis, requiring pressor and CPAP. Discharge Summary-Simple/Stand Consultations Discharge Physical Examination Allergies: Coded Allergies: Penicillins (Verified Allergy, Unknown, 05/23/06) Vitals & I&Os Vital Sign - Last 12Hours Date Time Temp Pulse Resp B/P (MAP) Pulse Ox O2 Delivery O2 Flow Rate FiO2 09/19/17 08:00 98.4 74 20 143/95 (111) 98 Room Air 09/16/17 21:33 21.00 Intake and Output 09/18/17 23:59 Intake Total 1710 ml Output Total 225 ml Balance 1485 ml Hospital Course See final discharge diagnosis. Discharge Instructions to patient/family Please see electronic discharge instructions given to patient. Discharge Medications Reviewed and agree with Discharge Medication list on patient's Discharge Instruction sheet Clinical Quality Measures DVT/VTE Risk/Contraindication: Risk Factor Score Per Nursin RFS Level Per Nursing on Admit: 4+=Very High SHAMIKA FERMIN MD Sep 19, 2017 10:19
[2017-09-19] MEDS ORDERED: LISI-556 PO (10:21)
[2017-09-19] MEDS ORDERED: METO-333 PO (10:21)
--- NOTE | 2017-09-19 10:25 | Discharge Instructions ---
Discharge Inst-[facility] Discharge Medications New, Converted or Re-Newed RX: Transmitted to Pharmacy New Medications: Lisinopril (Lisinopril) 5 Mg Tablet 2.5 MG PO DAILY, #30 TAB Metoprolol Tartrate (Metoprolol Tartrate) 25 Mg Tablet 25 MG PO BID, #60 TAB Continued Medications: Azithromycin (Azithromycin) 250 Mg Tablet 250 MG PO DAILY FILLED 09/15/17 #6 FOR A 5 DAY THERAPY Insulin Aspart (Novolog Flexpen) 300 Units/3 Ml Solution SQ UD, EA PATIENT INJECTS 2 UNITS PER CARBOHYDRATE WITH MEALS Insulin Detemir (Levemir Flextouch) 100 Unit/1 Ml Insuln.pen 15 UNITS SQ HS, EA Patient Instructions Goal/Follow Up Appt: You have a follow up appt with Roni Leiva on Sep 25 @ 2PM for your hospital followup You will also see Dr Davey in Wound care You will also have a follow up with the [facility] Patient Instructions: - Make sure you take you new medications, call if you experience any side effects - Keep tract of your blood sugars, if you notice that they are trending up call NELLY and talk to Roni's nurse for adjustments Return to The Hospital For: - Unable to tolerate food or fluids - Unable to tolerate medications - Chest pain - Shortness of breath Activity & Diet Discharge Diet: ADA Diet Activity as Tolerated: Yes Orders-Post D/C & Referrals Pneu Vac Indicated: Yes Copy Copies To 1: Roni VILLEGAS HOLLY R MD Sep 19, 2017 10:25
[2017-09-19 12:00] VITALS: BP 142/95
--- NOTE | 2017-09-19 13:08 | Cardiology Progress Note ---
Cardiology SOAP Progress Note Subjective: No cardiac complaints. Objective: I&O/Vital Signs Vital Sign - Last 12Hours 09/19/17 09/19/17 09/19/17 09/19/17 04:00 04:15 08:00 08:15 Temp 97.9 98.4 Pulse 77 74 Resp 18 20 B/P (MAP) 134/94 (107) 143/95 (111) Pulse Ox 96 98 O2 Delivery Room Air Room Air Room Air Room Air Intake and Output 09/19/17 00:00 Intake Total 1710 ml Output Total 225 ml Balance 1485 ml Weight (Pounds): 145 Weight (Ounces): 8.0 Weight (Calculated Kilograms): 65.257987 Constitutional: No appears stated age, No AAO x 3, No apparent distress, No PERRL, No well-developed, No well-nourished, No other Respiratory: No accessory muscle use, No respiratory distress, No chest tender , No chest expansion is symmetric, No chest is bilaterally symmetric, No lungs clear to percussion, No lungs clear to auscultation, No crackles, No rhonchi, No rales, No stridor, No wheezing, No pleural rub, No other Cardiovascular: regular rate-rhythm, No irregularly irregular, No extra beats, No parasternal heave is noted, No JVD, No edema, No bradycardia, tachycardia, No point of maximal impulse, No cardiac thrills are palpable, S1 and S2, No gallop/S3, No gallop/S4, No diastolic murmur, No systolic murmur, No friction rub, No click, No other Gastrointestional: No tender, No soft, No round, No distended, No pulsatile mass, No organomegaly, No guarding, No rebound, No tenderness, No hernia, No mass, No audible bowel sounds, No abnormal bowel sounds, No abdominal bruits, No spleenomegaly, No other Extremities: No normal range of motion, No non-tender, No normal inspection, No pedal edema, No calf tenderness, No normal capillary refill, No pelvis stable , No calf tenderness, No inflammation, No pedal edema, No slow capillary refill , No swelling, No other, No abrasion, No clubbing, No cyanosis, No ecchymosis, No laceration, No no lower extremity edema bilateral, No significant edema, No tenderness, No wound Neurologic/Psychiatric: No produce production team member II-XII nml as tested, No no motor/sensory deficits, No alert, No normal mood/affect, No oriented x 3, No abnormal cerebellar tests, No abnormal produce production team member II-XII, No abnormal gait, No aphasia, No EOM palsy, No facial droop, No motor weakness, No sensory deficit, No depressed affect, No disoriented x 3, No other, No grossly intact, No power is 5/5 both on sides Skin: warm/dry, pallor Results/Procedures: Labs Laboratory Tests 09/18/17 16:08: Glucometer 117H 09/18/17 20:07: Glucometer 90 09/18/17 21:09: Glucometer 104 09/18/17 23:31: Glucometer 52*L 09/18/17 23:53: Glucometer 48*L 09/19/17 00:35: Glucometer 87 09/19/17 03:53: Glucometer 58*L 09/19/17 05:17: Glucometer 96 09/19/17 05:55: White Blood Count 6.8, Red Blood Count 3.82L, Hemoglobin 11.1L, Hematocrit 32L, Mean Corpuscular Volume 84, Mean Corpuscular Hemoglobin 29, Mean Corpuscular Hemoglobin Concent 35, Red Cell Distribution Width 12.5, Platelet Count 188, Mean Platelet Volume 9.6, Neutrophils (%) (Auto) 61, Lymphocytes (%) (Auto) 33, Monocytes (%) (Auto) 5, Eosinophils (%) (Auto) 1, Basophils (%) (Auto) 0, Neutrophils # (Auto) 4.1, Lymphocytes # (Auto) 2.2, Monocytes # (Auto) 0.4, Eosinophils # (Auto) 0.1, Basophils # (Auto) 0.0, Sodium Level 138, Potassium Level 4.2, Chloride Level 108H, Carbon Dioxide Level 23, Anion Gap 7, Blood Urea Nitrogen 2L, Creatinine 0.57L, Estimat Glomerular Filtration Rate > 60, BUN /Creatinine Ratio 4, Glucose Level 81, Calcium Level 8.2L, B-Type Natriuretic Peptide 152.0H 09/19/17 08:08: Glucometer 113H 09/19/17 12:03: Glucometer 164H Microbiology 09/16/17 Blood Culture - Preliminary, Resulted No growth 09/17/17 MRSA Screen - Final, Complete MRSA not isolated A/P: Assessment/Dx: diabetic ketoacidosis, Sepsis, Shock, Tachycardia, atrial tachycardia, Cardiomyopathy Electrolyte abnormalities including hyperkalemia, ALICIA Plan: diabetic ketoacidosis, Sepsis, Shock, resolved now Tachycardia, atrial tachycardia, Cardiomyopathy. Electrolyte abnormalities - patient is being treated for DKA by the primary team and Dr. Vyas with IV fluids, IV insulin, aggressive electrolyte repletion.much improved. - Blood pressure is much stable. Atrial tachycardia with rapid ventricular rate likely contribution to to hypotension as well. Patient required vasopressors on admission.. - patient likely had atrial tachycardia with rapid ventricular rate which is in response to severe systemic illness. He did not respond to adenosine boluses. Patient is in sinus tachycardia at this point in time. - Echocardiogram showed moderate systolic dysfunction with an EF of 35-40 percent. No valvular heart disease. Ischemia will be ruled out as an outpatient. Treatment for cardiomyopathy will be started. Lisinopril, beta lenny. - acute kidney injury likely secondary to dehydration. Much improved. Continue IV fluids. Okay to discharge to follow-up in 2 weeks in office. Thank you for your consultation. Please call me if you have any questions. Tiffanie Blum MD, FACP, FACC, FSCAI, FHRS, CCDS Interventional Cardiology Cardiac Electrophysiology Vascular Medicine and Endovascular Interventions Dangelo BLUM MD Sep 19, 2017 1:08 pm
[2017-09-19 16:20] VITALS: BP 153/97
== END 2017-09-19 17:15 | disposition home or self-care (01) | DRG 871 ==
LOC: EDUNIT# 20:28 → ER 20:32 → ICU 21:30 → 4TH 09-18 09:56
PROVIDERS: ADMIT Family Medicine; ATTEND Family Medicine
PROC: 03H433Z Insertion of Infusion Device into Left Subclavian Artery, Percutaneous Approach (ICD-10-PCS; principal; 2017-09-16)
DX: A41.9 Sepsis, unspecified organism (principal); R65.21 Severe sepsis with septic shock; E10.10 Type 1 diabetes mellitus with ketoacidosis without coma; E87.1 Hypo-osmolality and hyponatremia; N17.9 Acute kidney failure, unspecified; I47.1 Supraventricular tachycardia; I42.9 Cardiomyopathy, unspecified; R09.02 Hypoxemia; Z79.4 Long term (current) use of insulin; R41.82 Altered mental status, unspecified; E87.5 Hyperkalemia; Z91.19 Patient's noncompliance with other medical treatment and regimen; E86.0 Dehydration; R74.8 Abnormal levels of other serum enzymes; J32.9 Chronic sinusitis, unspecified; Z88.0 Allergy status to penicillin; E83.42 Hypomagnesemia; E83.39 Other disorders of phosphorus metabolism
CPT/HCPCS: 36415; 71010; 80048; 80053; 80074; 80306; 80320; 81000; 82805; 82962; 83036; 83605; 83735; 83880; 84100; 84443; 85007; 85025; 85027; 85610; 85730; 86703; 87040; 87081; 87804; 93005; 93306; 94640; 96361; 96374; 96375

== ENCOUNTER 2017-09-28 11:10 | Day surgery (SDC) | payer SELFPAY ==
[2017-09-28] VITALS (22 sets, daily range): BP systolic 99–140; BP diastolic 62–88
[~2017-09-28] VITALS: Ht 180.3 cm; Wt 59.0 kg
[~2017-09-28 11:10] MED LIST changes: +AZIT250T12 PO; +INSU100I14 SQ; +INSU100I29 SQ; +LISI-556 PO; +METO-333 PO; -SODIUM BICARB 8.4% 50 MEQ/50 ML (ABBOTT) SYR INJ ONE
--- OUTSIDE RECORDS SUMMARY | 2017-09-28 11:15 | XMS REPORT | Continuity of Care Document ---
Author Author [employer] Organization [facility] Address Unknown Phone Unavailable Care Team Providers Care Digital Court Reporter Name Role Phone [employer] Unavailable Unavailable Problems Medications Allergies, Adverse Reactions, Alerts Immunizations Results Vital Signs Encounters Procedures Plan of Care Social History Assessment and Plan Family History Value Date Source Advance Directives Order Name Results Value Date Source
--- OUTSIDE RECORDS SUMMARY | 2017-09-28 11:15 | XMS REPORT | Clinical Summary ---
Author Author [facility] Organization [facility] Address Unknown Phone Unavailable Care Team Providers Care Store Sales Consultant Name Role Phone PCP Unavailable Source Comments Some departments are not documenting in the electronic medical record. If you do not see the information that you expected, contact Release of Information in the Health Information Management department at [phone] for further assistance in locating additional records.[facility] Allergies Active Allergy Reactions Severity Noted [...] and BCL. 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 Assessment & Plan: Infiltrate may [...] Taken Blood Pressure 135/75 12/15/2015 8:44 PM NEWSPAPER MANAGER Pulse 112 12/15/2015 8:44 PM NEWSPAPER MANAGER Temperature 37 C (98.6 F) 12/15/2015 8:44 PM NEWSPAPER MANAGER Respiratory Rate - - Oxygen Saturation 100% 12/15/2015 8:44 PM NEWSPAPER MANAGER Inhaled Oxygen - - Concentration Weight 52.2 kg (115 lb) 12/18/2015 12:19 PM NEWSPAPER MANAGER Height 180.3 cm (5' 11") 12/18/2015 12:19 PM NEWSPAPER MANAGER Body Mass Index 16.04 12/18/2015 12:19 PM NEWSPAPER MANAGER Plan of Treatment Health Maintenance Due Date Last Done Comments PHYSICAL (COMPREHENSIVE) 1996 EXAM PERTUSSIS VACCINE 2000 TETANUS VACCINE 2006 INFLUENZA VACCINE 05/16/2017 Results Not on filefrom Last 3 Months
--- OUTSIDE RECORDS SUMMARY | 2017-09-28 11:17 | XMS REPORT | Continuity of Care Document ---
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 (moles/volume) 115 mmol/L 98-107 Carbon dioxide 20 mmol/L 21-32 Serum or plasma anion gap determination (moles/volume) 7 mmol/L 5-14 Serum or plasma urea nitrogen measurement (mass/volume) 8 mg/dL 7-18 Serum or plasma creatinine measurement (mass/volume) 0.84 mg/dL 0.60-1.30 Serum or plasma urea nitrogen/creatinine mass ratio 10 NRG Serum or plasma creatinine measurement with calculation of estimated glomerular filtration rate > NRG Serum or plasma glucose measurement (mass/volume) 141 mg/dL 70-105 Serum or plasma calcium measurement (mass/volume) 7.0 mg/dL 8.5-10.1 Serum or plasma phosphate measurement (mass/volume) - 09/17/17 05:10 Serum or plasma phosphate measurement (mass/volume) 0.8 mg/dL 2.3-4.7 Magnesium - 09/17/17 05:10 Magnesium 1.3 mg/dL 1.8-2.4 Capillary blood glucose measurement by glucometer (mass/volume) - 09/17/17 05: 14 Capillary blood glucose measurement by glucometer (mass/volume) 134 mg/dL 70-110 Arterial blood gas measurement - 09/17/17 05:18 Blood pCO2 30 mm[Hg] 35-45 Blood pO2 102 mm[Hg] 79-93 Arterial blood bicarbonate measurement (moles/volume) 18 mmol/L 23-27 Arterial blood base excess by calculation -6.5 mmol/L - 2.5-2.5 Arterial blood oxygen saturation measurement 100 % 94- 100 * Inhaled oxygen flow rate ROOM AIR NRG Arterial blood pH measurement with patient temperature correction 7.39 7.37-7.43 Arterial blood carbon dioxide, total measurement (moles/volume) 18.5 mmol/L 21.0-31.0 Body site LEFT BRACHIAL NRG Assessment of wrist artery patency prior to arterial puncture NA NRG Setting of ventilation mode NO NRG Measurement of body temperature 98.6 NRG Capillary blood glucose measurement by glucometer (mass/volume) - 09/17/17 05: 46 Capillary blood glucose measurement by glucometer (mass/volume) 138 mg/dL 70-110 Capillary blood glucose measurement by glucometer (mass/volume) - 09/17/17 06: 45 Capillary blood glucose measurement by glucometer (mass/volume) 201 mg/dL 70-110 Capillary blood glucose measurement by glucometer (mass/volume) - 09/17/17 08: 04 Capillary blood glucose measurement by glucometer (mass/volume) 167 mg/dL 70-110 Whole blood basic metabolic panel - 09/17/17 08:20 Serum or plasma sodium measurement (moles/volume) 139 mmol/L 135-145 Serum or plasma potassium measurement (moles/volume) 3.7 mmol/L 3.6-5.0 Serum or plasma chloride measurement (moles/volume) 114 mmol/L 98-107 Carbon dioxide 19 mmol/L 21-32 Serum or plasma anion gap determination (moles/volume) 6 mmol/L 5-14 Serum or plasma urea nitrogen measurement (mass/volume) 7 mg/dL 7-18 Serum or plasma creatinine measurement (mass/volume) 0.80 mg/dL 0.60-1.30 Serum or plasma urea nitrogen/creatinine mass ratio 9 NRG Serum or plasma creatinine measurement with calculation of estimated glomerular filtration rate > NRG Serum or plasma glucose measurement (mass/volume) 156 mg/dL 70-105 Serum or plasma calcium measurement (mass/volume) 7.0 mg/dL 8.5-10.1 Capillary blood glucose measurement by glucometer (mass/volume) - 09/17/17 09: 01 Capillary blood glucose measurement by glucometer (mass/volume) 156 mg/dL 70-110 Capillary blood glucose measurement by glucometer (mass/volume) - 09/17/17 10: 08 Capillary blood glucose measurement by glucometer (mass/volume) 166 mg/dL 70-110 Capillary blood glucose measurement by glucometer (mass/volume) - 09/17/17 11: 06 Capillary blood glucose measurement by glucometer (mass/volume) 123 mg/dL 70-110 Capillary blood glucose measurement by glucometer (mass/volume) - 09/17/17 11: 32 Capillary blood glucose measurement by glucometer (mass/volume) 126 mg/dL 70-110 Whole blood basic metabolic panel - 09/17/17 11:45 Serum or plasma sodium measurement (moles/volume) 138 mmol/L 135-145 Serum or plasma potassium measurement (moles/volume) 3.7 mmol/L 3.6-5.0 Serum or plasma chloride measurement (moles/volume) 112 mmol/L 98-107 Carbon dioxide 21 mmol/L 21-32 Serum or plasma anion gap determination (moles/volume) 5 mmol/L 5-14 Serum or plasma urea nitrogen measurement (mass/volume) 5 mg/dL 7-18 Serum or plasma creatinine measurement (mass/volume) 0.74 mg/dL 0.60-1.30 Serum or plasma urea nitrogen/creatinine mass ratio 7 NRG Serum or plasma creatinine measurement with calculation of estimated glomerular filtration rate > NRG Serum or plasma glucose measurement (mass/volume) 123 mg/dL 70-105 Serum or plasma calcium measurement (mass/volume) 7.2 mg/dL 8.5-10.1 Serum or plasma phosphate measurement (mass/volume) - 09/17/17 11:45 Serum or plasma phosphate measurement (mass/volume) 1.2 mg/dL 2.3-4.7 Magnesium - 09/17/17 11:45 Magnesium 2.2 mg/dL 1.8-2.4 Complete blood count (CBC) with automated white blood cell (WBC) differential - 09/17/17 11:45 Blood leukocytes automated count (number/volume) 11.9 10*3/uL 4.3-11.0 Blood erythrocytes automated count (number/volume) 3.52 10*6/uL 4.35-5.85 Venous blood hemoglobin measurement (mass/volume) 10.2 g/dL 13.3-17.7 Blood hematocrit (volume fraction) 29 % 40-54 Automated erythrocyte mean corpuscular volume 84 [foz_us] 80-99 Automated erythrocyte mean corpuscular hemoglobin (mass per erythrocyte) 29 pg 25-34 Automated erythrocyte mean corpuscular hemoglobin concentration measurement ( mass/volume) 35 g/dL 32-36 Automated erythrocyte distribution width ratio 12.4 % 10.0-14.5 Automated blood platelet count (count/volume) 205 10*3/uL 130-400 Automated blood platelet mean volume measurement 8.7 [foz_us] 7.4-10.4 Automated blood neutrophils/100 leukocytes 71 % 42-75 Automated blood lymphocytes/100 leukocytes 21 % 12-44 Blood monocytes/100 leukocytes 8 % 0-12 Automated blood eosinophils/100 leukocytes 1 % 0-10 Automated blood basophils/100 leukocytes 0 % 0-10 Blood neutrophils automated count (number/volume) 8.5 10*3 1.8-7.8 Blood lymphocytes automated count (number/volume) 2.4 10*3 1.0-4.0 Blood monocytes automated count (number/volume) 0.9 10*3 0.0-1.0 Automated eosinophil count 0.1 10*3/uL 0.0-0.3 Automated blood basophil count (count/volume) 0.0 10*3/uL 0.0-0.1 Capillary blood glucose measurement by glucometer (mass/volume) - 09/17/17 12: 38 Capillary blood glucose measurement by glucometer (mass/volume) 144 mg/dL 70-110 Capillary blood glucose measurement by glucometer (mass/volume) - 09/17/17 13: 48 Capillary blood glucose measurement by glucometer (mass/volume) 121 mg/dL 70-110 Capillary blood glucose measurement by glucometer (mass/volume) - 09/17/17 14: 59 Capillary blood glucose measurement by glucometer (mass/volume) 136 mg/dL 70-110 Capillary blood glucose measurement by glucometer (mass/volume) - 09/17/17 16: 29 Capillary blood glucose measurement by glucometer (mass/volume) 116 mg/dL 70-110 Capillary blood glucose measurement by glucometer (mass/volume) - 09/17/17 19: 34 Capillary blood glucose measurement by glucometer (mass/volume) 131 mg/dL 70-110 Capillary blood glucose measurement by glucometer (mass/volume) - 09/18/17 00: 06 Capillary blood glucose measurement by glucometer (mass/volume) 73 mg/dL 70-110 Capillary blood glucose measurement by glucometer (mass/volume) - 09/18/17 04: 19 Capillary blood glucose measurement by glucometer (mass/volume) 129 mg/dL 70-110 Complete blood count (CBC) with automated white blood cell (WBC) differential - 09/18/17 04:50 Blood leukocytes automated count (number/volume) 5.4 10*3/uL 4.3-11.0 Blood erythrocytes automated count (number/volume) 3.56 10*6/uL 4.35-5.85 Venous blood hemoglobin measurement (mass/volume) 10.5 g/dL 13.3-17.7 Blood hematocrit (volume fraction) 30 % 40-54 Automated erythrocyte mean corpuscular volume 84 [foz_us] 80-99 Automated erythrocyte mean corpuscular hemoglobin (mass per erythrocyte) 30 pg 25-34 Automated erythrocyte mean corpuscular hemoglobin concentration measurement ( mass/volume) 35 g/dL 32-36 Automated erythrocyte distribution width ratio 12.6 % 10.0-14.5 Automated blood platelet count (count/volume) 179 10*3/uL 130-400 Automated blood platelet mean volume measurement 8.6 [foz_us] 7.4-10.4 Automated blood neutrophils/100 leukocytes 51 % 42-75 Automated blood lymphocytes/100 leukocytes 41 % 12-44 Blood monocytes/100 leukocytes 6 % 0-12 Automated blood eosinophils/100 leukocytes 2 % 0-10 Automated blood basophils/100 leukocytes 0 % 0-10 Blood neutrophils automated count (number/volume) 2.8 10*3 1.8-7.8 Blood lymphocytes automated count (number/volume) 2.2 10*3 1.0-4.0 Blood monocytes automated count (number/volume) 0.3 10*3 0.0-1.0 Automated eosinophil count 0.1 10*3/uL 0.0-0.3 Automated blood basophil count (count/volume) 0.0 10*3/uL 0.0-0.1 Whole blood basic metabolic panel - 09/18/17 04:50 Serum or plasma sodium measurement (moles/volume) 137 mmol/L 135-145 Serum or plasma potassium measurement (moles/volume) 3.8 mmol/L 3.6-5.0 Serum or plasma chloride measurement (moles/volume) 113 mmol/L 98-107 Carbon dioxide 19 mmol/L 21-32 Serum or plasma anion gap determination (moles/volume) 5 mmol/L 5-14 Serum or plasma urea nitrogen measurement (mass/volume) 3 mg/dL 7-18 Serum or plasma creatinine measurement (mass/volume) 0.62 mg/dL 0.60-1.30 Serum or plasma urea nitrogen/creatinine mass ratio 5 NRG Serum or plasma creatinine measurement with calculation of estimated glomerular filtration rate > NRG Serum or plasma glucose measurement (mass/volume) 109 mg/dL 70-105 Serum or plasma calcium measurement (mass/volume) 7.3 mg/dL 8.5-10.1 Serum or plasma phosphate measurement (mass/volume) - 09/18/17 04:50 Serum or plasma phosphate measurement (mass/volume) 1.7 mg/dL 2.3-4.7 Magnesium - 09/18/17 04:50 Magnesium 1.9 mg/dL 1.8-2.4 Capillary blood glucose measurement by glucometer (mass/volume) - 09/18/17 08: 18 Capillary blood glucose measurement by glucometer (mass/volume) 71 mg/dL 70-110 Capillary blood glucose measurement by glucometer (mass/volume) - 09/18/17 11: 31 Capillary blood glucose measurement by glucometer (mass/volume) 205 mg/dL 70-110 Capillary blood glucose measurement by glucometer (mass/volume) - 09/18/17 16: 08 Capillary blood glucose measurement by glucometer (mass/volume) 117 mg/dL 70-110 Capillary blood glucose measurement by glucometer (mass/volume) - 09/18/17 20: 07 Capillary blood glucose measurement by glucometer (mass/volume) 90 mg/dL 70-110 Capillary blood glucose measurement by glucometer (mass/volume) - 09/18/17 21: 09 Capillary blood glucose measurement by glucometer (mass/volume) 104 mg/dL 70-110 Capillary blood glucose measurement by glucometer (mass/volume) - 09/18/17 23: 31 Capillary blood glucose measurement by glucometer (mass/volume) 52 mg/dL 70-110 Capillary blood glucose measurement by glucometer (mass/volume) - 09/18/17 23: 53 Capillary blood glucose measurement by glucometer (mass/volume) 48 mg/dL 70-110 Capillary blood glucose measurement by glucometer (mass/volume) - 09/19/17 00: 35 Capillary blood glucose measurement by glucometer (mass/volume) 87 mg/dL 70-110 Capillary blood glucose measurement by glucometer (mass/volume) - 09/19/17 03: 53 Capillary blood glucose measurement by glucometer (mass/volume) 58 mg/dL 70-110 Capillary blood glucose measurement by glucometer (mass/volume) - 09/19/17 05: 17 Capillary blood glucose measurement by glucometer (mass/volume) 96 mg/dL 70-110 Complete blood count (CBC) with automated white blood cell (WBC) differential - 09/19/17 05:55 Blood leukocytes automated count (number/volume) 6.8 10*3/uL 4.3-11.0 Blood erythrocytes automated count (number/volume) 3.82 10*6/uL 4.35-5.85 Venous blood hemoglobin measurement (mass/volume) 11.1 g/dL 13.3-17.7 Blood hematocrit (volume fraction) 32 % 40-54 Automated erythrocyte mean corpuscular volume 84 [foz_us] 80-99 Automated erythrocyte mean corpuscular hemoglobin (mass per erythrocyte) 29 pg 25-34 Automated erythrocyte mean corpuscular hemoglobin concentration measurement ( mass/volume) 35 g/dL 32-36 Automated erythrocyte distribution width ratio 12.5 % 10.0-14.5 Automated blood platelet count (count/volume) 188 10*3/uL 130-400 Automated blood platelet mean volume measurement 9.6 [foz_us] 7.4-10.4 Automated blood neutrophils/100 leukocytes 61 % 42-75 Automated blood lymphocytes/100 leukocytes 33 % 12-44 Blood monocytes/100 leukocytes 5 % 0-12 Automated blood eosinophils/100 leukocytes 1 % 0-10 Automated blood basophils/100 leukocytes 0 % 0-10 Blood neutrophils automated count (number/volume) 4.1 10*3 1.8-7.8 Blood lymphocytes automated count (number/volume) 2.2 10*3 1.0-4.0 Blood monocytes automated count (number/volume) 0.4 10*3 0.0-1.0 Automated eosinophil count 0.1 10*3/uL 0.0-0.3 Automated blood basophil count (count/volume) 0.0 10*3/uL 0.0-0.1 Whole blood basic metabolic panel - 09/19/17 05:55 Serum or plasma sodium measurement (moles/volume) 138 mmol/L 135-145 Serum or plasma potassium measurement (moles/volume) 4.2 mmol/L 3.6-5.0 Serum or plasma chloride measurement (moles/volume) 108 mmol/L 98-107 Carbon dioxide 23 mmol/L 21-32 Serum or plasma anion gap determination (moles/volume) 7 mmol/L 5-14 Serum or plasma urea nitrogen measurement (mass/volume) 2 mg/dL 7-18 Serum or plasma creatinine measurement (mass/volume) 0.57 mg/dL 0.60-1.30 Serum or plasma urea nitrogen/creatinine mass ratio 4 NRG Serum or plasma creatinine measurement with calculation of estimated glomerular filtration rate > NRG Serum or plasma glucose measurement (mass/volume) 81 mg/dL 70-105 Serum or plasma calcium measurement (mass/volume) 8.2 mg/dL 8.5-10.1 Serum or plasma lithium measurement (moles/volume) - 09/19/17 05:55 BNP level 152.0 pg/mL <100.0 Capillary blood glucose measurement by glucometer (mass/volume) - 09/19/17 08: 08 Capillary blood glucose measurement by glucometer (mass/volume) 113 mg/dL 70-110 Capillary blood glucose measurement by glucometer (mass/volume) - 09/19/17 12: 03 Capillary blood glucose measurement by glucometer (mass/volume) 164 mg/dL 70-110 Capillary blood glucose measurement by glucometer (mass/volume) - 09/19/17 16: 08 Capillary blood glucose measurement by glucometer (mass/volume) 43 mg/dL 70-110 Capillary blood glucose measurement by glucometer (mass/volume) - 09/19/17 16: 29 Capillary blood glucose measurement by glucometer (mass/volume) 64 mg/dL 70-110 Encounters ACCT No. Visit Date/Time Discharge Status Pt. Type Provider Facility Loc./Unit Complaint [id number] 09/16/2017 21:30:00 09/19/2017 17:15:00 DIS Inpatient DEANNE BLANCO MD [facility] 4TH DKA,SEVERE SEPSIS,SEPTIC SHOCK,ACUTE RENAL FAILURE [id number] 11/21/2014 13:59:00 11/21/2014 23:59:59 CLS Outpatient AMRIK JANSEN [facility] LAB ELEVATED LDH, HYYPOTASSEMIA [id number] 11/14/2014 02:39:00 11/17/2014 10:30:00 DIS Inpatient KYE DO, HILARIO K [facility] 4TH PNEUMONIA,N/V,FEVER [id number] 02/25/2013 20:59:00 02/25/2013 23:20:00 DIS Emergency TERESA BENAVIDES [facility] ER LESION ON CHEST AREA [id number] 09/28/2017 13:00:00 PEN Preadmit ALEX MOTTA MD [facility] CATH NEW ONSET CARDIOMYOPATHY [id number] 09/28/2017 01:51:00 Document Registration [id number] 09/28/2017 01:51:00 Document Registration [id number] 09/28/2017 01:51:00 Document Registration [id number] 09/28/2017 01:51:00 Document Registration [id number] 09/04/2012 12:41:00 Document Registration [id number] 03/20/2012 07:24:00 Document Registration [id number] 11/24/2014 15:12:00 11/24/2014 23:59:59 CLS Outpatient EMIL TORRES APRN [id number] 11/04/2014 13:47:00 11/04/2014 23:59:59 CLS Outpatient SHA VILLALOBOS APRN [id number] 09/23/2014 11:21:00 09/23/2014 23:59:59 CLS Outpatient MICHAEL MCKEON APRN Fabricio [id number] 05/19/2014 16:14:00 05/19/2014 23:59:59 CLS Outpatient EMIL TORRES APRN [id number] 12/23/2013 16:29:00 12/23/2013 23:59:59 CLS Outpatient EMIL TORRES APRN [id number] 10/18/2013 08:52:00 10/18/2013 23:59:59 CLS Outpatient EMIL TORRES APRN [id number] 08/28/2013 17:13:00 08/28/2013 23:59:59 CLS Outpatient EMIL TORRES APRN [id number] 07/29/2013 13:02:00 07/29/2013 23:59:59 CLS Outpatient DREW STRANGE APRN Fabricio [id number] 07/24/2013 16:26:00 07/24/2013 23:59:59 CLS Outpatient MELISSA SUMMERSNEMIL [id number] 08/29/2012 14:55:00 08/29/2012 23:59:59 [place] [id number] 08/22/2012 13:29:00 08/22/2012 23:59:59 CLS Outpatient HILARIO FISHMAN DO
[2017-09-28] MEDS ORDERED: HEParin (CATH LAB) 2,000 ML IV ONE (11:27)
[2017-09-28] MEDS ORDERED: NS IV 1000 ML 1,000 ML ONE (11:27)
[2017-09-28] MEDS ORDERED: LIDOCAINE 1% INJ 50 ML (XYLOCAINE) VIAL ONE (11:27)
[2017-09-28] MEDS ORDERED: NS IV 1000 ML 1,000 ML IV SCH ×2 (11:38→16:46)
[2017-09-28 12:00] LABS: MEAN PLATELET VOLUME 8.3 FL (7.4-10.4); RED BLOOD COUNT 4.52 10^6/uL (4.35-5.85); RED CELL DISTRIBUTION WIDTH 12.9 % (10.0-14.5); WHITE BLOOD COUNT 9.2 10^3/uL (4.3-11.0)
[2017-09-28 12:13] LABS: PROTHROMBIN TIME PATIENT 13.3 SEC (12.2-14.7)
[2017-09-28] MEDS ORDERED: INFLUENZA TRIvalent 2017-2018 0.5 ML/45 MCG SYR IM ONE (12:15)
[2017-09-28 12:23] LABS: ALANINE AMINOTRANSFERASE 72 U/L (0-55); ALBUMIN 3.9 GM/DL (3.2-4.5); ANION GAP 13 MMOL/L (5-14); ASPARTATE AMINO TRANSFERASE 59 U/L (5-34); BILIRUBIN,TOTAL 0.8 MG/DL (0.1-1.0); BLOOD UREA NITROGEN 10 MG/DL (7-18); BUN/CREATININE RATIO 13; CALCIUM 9.2 MG/DL (8.5-10.1); CARBON DIOXIDE 23 MMOL/L (21-32); CHLORIDE 95 MMOL/L (98-107); CHOLESTEROL 181 MG/DL (< 200); CREATININE SERUM 0.77 MG/DL (0.60-1.30); DIRECT LDL 83 MG/DL (1-129); GFR ESTIMATED > 60; GLUCOSE 299 MG/DL (70-105); POTASSIUM 3.8 MMOL/L (3.6-5.0); SODIUM 131 MMOL/L (135-145); TOTAL PROTEIN 7.7 GM/DL (6.4-8.2); TRIGLYCERIDES 73 MG/DL (<150); VLDL CHOLESTEROL 15 MG/DL (5-40)
[2017-09-28] MEDS ORDERED: fentaNYL INJECTION 100 MCG/2 ML AMP ONE (15:33)
[2017-09-28] MEDS ORDERED: MIDAZOLAM 2 MG/2 ML (VERSED) VIAL ONE (15:33)
[2017-09-28] MEDS ORDERED: HEParin 1000 UNIT/ML (10ML VIAL) FOR BOLUS ONE (15:34)
[2017-09-28] MEDS ORDERED: VERAPAMIL 5 MG/2 ML (CALAN) VIAL IV ONE (15:34)
[2017-09-28] MEDS ORDERED: NITROGLYCERIN DRIP 25 MG/D5W 250 ML IV ONE (15:35)
--- NOTE | 2017-09-28 16:07 | Cardiac Procedure Note-CS/ASA ---
Pre-Procedure Note Pre-Op Procedure Note H&P Reviewed The H&P was reviewed, patient examined and no changes noted. Date H&P Reviewed: Sep 28, 2017 Time H&P Reviewed: 16:07 Conscious Sedation Pre-Proced Time Reviewed: 16:07 ASA Class: 2 Airway Mallampati Classification: ([place] appropriate class) I. II. III, IV Lungs Heart ASA score ASA 1: a normal healthy patient ASA 2: a patient with a mild systemic disease (mid diabetes, controlled hypertension, obesity ASA 3: a patient with a severe systemic disease that limits activity (angina , COPD, prior Myocardial infarction) ASA 4: a patient with an incapacitating disease that is a constant threat to life (CHF, renal failure) ASA 5: a moribund patient not expected to survive 24 hrs. (ruptured aneurysm) ASA 6: a declared brain patient whose organs are being harvested. For emergent operations, add the letter E after the classification Grade 1 Sedation Plan: Analgesia, Amnesia, Plan communicated to team members, Discussed options with patient/fam, Discussed risks with patient/fam Note The patient is an appropriate candidate to undergo the planned procedure, sedation, and anesthesia. The patient immediately re-assessed prior to indication. Dangelo DAVIS MD Sep 28, 2017 4:07 pm
--- NOTE | 2017-09-28 16:46 | Cardiology Post Procedure Note ---
Post-Procedure Note Physician (s)/Continuous Improvement Facilitator (s) Physician Dangelo DAVIS MD Pre-Procedure Diagnosis Pre-Procedure Diagnosis: Cardiomyopathy Post-Procedure Note Procedure Start Date: Sep 28, 2017 Procedure Start Time: 16:00 Name of Procedure: Coronary angiography, [facility] Findings/Procedure Note patent epicardial coronary arteries. Preserved LVEF. LVEDP 13 Anesthesia Type: Conscious Sedation Estimated blood loss (mL): 10 Contrast Amount: 60 Post-Procedure Diagnosis Post-operative diagnosis: Patent epicardial coronary arteries, Improved LV function Dangelo DAVIS MD Sep 28, 2017 4:46 pm
--- NOTE | 2017-09-28 16:48 | Discharge Inst-Post CATH ---
Discharge Inst-CATH Post Cardiac Cath D/C Inst Follow Up/Plan Dr Blum in one month CARDIAC CATH DISCHARGE INSTRUCTIONS *Hold Metformin for 48 hours post heart cath. ACTIVITY * Go Home directly and rest. * Limit activity of the leg (or wrist if it was used) for 7 days including aerobics, swimming, jogging, bicycling, etc. * Restrict stair-climbing for 7 days if possible, if not, climb up with your non -cath leg, then bring together on the same step. * Avoid lifting, pushing, pulling or excessive movement of the affected extremity for 7 days. * Customary sexual activity may be resumed after 2 days-use caution not to use a position that strains or causes pain to the affected extremity. * No driving for 24 hours. * NO SMOKING. * Avoid straining for bowel movements for 7 days. * Gentle walking on level ground is allowed. * Returning to work will depend on the type of procedure and the results. Your doctor will discuss this with you. CALL YOUR DOCTOR FOR ANY OF THE FOLLOWING: *If bleeding from the puncture site occurs- Apply gentle pressure to site with clean cloth and call your doctor or EMS. * If a knot or lump forms under the skin, increases in size, or causes pain. * If bruising appears to be worsening or moving further down your leg instead of disappearing. * Temperature above 101 F. CARE OF YOUR GROIN INCISION; * Bruising or purple discoloration of the skin near the puncture site is common. * You may shower only, no bathtub bathing for 5 days. Be careful to avoid slipping as your leg may feel stiff. * If a closure device was used on your femoral artery, please see the attached guide regarding care of the device and your leg. * REMOVE the dressing from your groin the next day after your procedure in the shower. CARE OF YOUR WRIST INCISION; * Bruising or purple discoloration of the skin near the puncture site is common. * You may shower. * DO NOT submerge wrist. * Remove dressing in 24 hours. Dangelo BLUM MD Sep 28, 2017 4:48 pm
--- NOTE | 2017-09-28 16:50 | Cardiology Discharge Summary ---
Diagnosis/Chief Complaint Date of Admission 09/28/2017 Date of Discharge 09/28/2017 Admission Diagnosis new onset cardiomyopathy Final/Discharge Diagnosis patent epicardial coronary arteries, nonischemic cardiopathy myopathy Chief Complaint/HPI Chief Complaint/HPI 27-year-old male with history of type I diabetes. Who presented with atrial tachycardia, DKA and sepsis. Echocardiogram showed an EF of 35-40 percent. Coronary angiography was recommended to rule out CAD. Discharge Summary Procedures coronary angiography shows patent epicardial coronary vessels. Significant improvement in LV function. Discharge Physical Examination stable Hospital Course stable Pending Labs Laboratory Tests 09/28/17 11:52: White Blood Count 9.2, Red Blood Count 4.52, Hemoglobin 13.1, Hematocrit 39, Mean Corpuscular Volume 85, Mean Corpuscular Hemoglobin 29, Mean Corpuscular Hemoglobin Concent 34, Red Cell Distribution Width 12.9, Platelet Count 376, Mean Platelet Volume 8.3, Prothrombin Time 13.3, INR Comment 1.0, Activated Partial Thromboplast Time 25, Sodium Level 131, Potassium Level 3.8, Chloride Level 95, Carbon Dioxide Level 23, Anion Gap 13, Blood Urea Nitrogen 10, Creatinine 0.77, Estimat Glomerular Filtration Rate > 60, BUN/Creatinine Ratio 13, Glucose Level 299, Calcium Level 9.2, Total Bilirubin 0.8, Aspartate Amino Transf (AST/SGOT) 59, Alanine Aminotransferase (ALT/SGPT) 72, Alkaline Phosphatase 149, Total Protein 7.7, Albumin 3.9, Triglycerides Level 73, Cholesterol Level 181, LDL Cholesterol Direct 83, VLDL Cholesterol 15, HDL Cholesterol 78 Discussion & Recommendations Discussion follow-up with Dr. Blum in one month. Follow up appt.: Dr. Blum in one month Dicharge Diet: Cardiac Diet Activity as Tolerated: Yes Home Medications Reviewed patient Home Medication Reconciliation Form Discharge Home Medications: Reviewed and agree with Discharge Medication list on patient's Discharge Instruction sheet Condition at discharge stable Instructions to patient/family Dr Blum in one month Dangelo BLUM MD Sep 28, 2017 4:50 pm
[2017-09-28] MEDS ORDERED: PATIENT MAY USE OWN MEDS, ALL PO SCH (17:00)
--- NOTE | 2017-09-29 21:35 | CARDIAC CATHETERIZATION ---
DATE OF SERVICE: 09/28/2017 CORONARY ANGIOGRAPHY AND LEFT HEART CATHETERIZATION REPORT INDICATION: Newly diagnosed cardiomyopathy. PREOPERATIVE DIAGNOSIS: Newly diagnosed cardiomyopathy with an ejection fraction of 35%-40%. POSTOPERATIVE DIAGNOSIS: Patent epicardial coronary arteries. HISTORY: The patient is a 27-year-old gentleman with a history of type 1 diabetes. He has had type 1 diabetes for at least 15 years. He has not been on intensive therapy for the last 5 years. He presented recently with severe DKA, sepsis and shock. He was also noted to be in severe atrial tachycardia. He was treated appropriately in the ICU. Echocardiogram was done, which showed an EF of 35% to 40%. The patient was started on lisinopril and beta lenny and discharged. He came to the outpatient visit. Coronary angiography is recommended to rule out CAD since the patient does have significant risk factors of coronary artery disease including type 1 diabetes of over 15 years of duration and less than 5 years of intensive therapy. PROCEDURES PERFORMED: 1. Coronary angiography. 2. Left heart catheterization. COMPLICATIONS: None. ESTIMATED BLOOD LOSS: 10 mL. ANESTHESIA: Conscious sedation. ANTICOAGULATION: IV heparin. CONTRAST: 60 mL of Omnipaque. FLUOROSCOPY TIME: 6 minutes. FLUOROSCOPY DOSE: 254 milligrays. 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 All the risks and complications were explained in detail. He was draped and prepped in the usual sterile fashion. Access was gained in the right radial artery with a 6-Stateless sheath. Coronary angiography and left heart catheterization was performed with the Shyam catheter. A JR4 catheter was used to engage the right coronary system. FINDINGS: 1. Left main: Patent. 2. LAD: Patent. 3. Left circumflex artery: Patent. 4. RCA: Patent. 5. Left heart catheterization: Aortic pressure 105/80 mmHg. LV pressure 128/4 mmHg. LVDP 13 mmHg. LV function 50% with no wall motion abnormalities. There is no gradient across the aortic valve. CONCLUSION: 1. Nonischemic cardiomyopathy. 2. Patent epicardial coronary arteries. 3. Preserved LV function which suggests significant improvement in the LV function as compared to the echocardiogram done during previous hospitalization. PLAN: Continue medical therapy with lisinopril and metoprolol. Job ID: [id number] DocumentID: [id number] Dictated Date: 09/29/2017 16:27:53 [employer] Date: 09/29/2017 21:34:56 Dictated By: SANDRO DAVIS MD
== END 2017-09-28 22:12 | disposition home or self-care (01) ==
LOC: CATH 11:10 → ICU 17:06 → CATH 22:12
PROVIDERS: ATTEND Internal Medicine Cardiovascular Disease
DX: I42.9 Cardiomyopathy, unspecified (principal); Z11.2 Encounter for screening for other bacterial diseases; E10.9 Type 1 diabetes mellitus without complications; Z88.1 Allergy status to other antibiotic agents; Z79.899 Other long term (current) drug therapy; I47.1 Supraventricular tachycardia; Z87.891 Personal history of nicotine dependence
CPT/HCPCS: 36415; 80053; 80061; 82962; 85027; 85610; 85730; 87081; 93458

== ENCOUNTER 2019-07-19 19:27 | Emergency (ER) | payer SELFPAY ==
[~2019-07-19] VITALS: Ht 180 cm; Wt 56.8 kg
[~2019-07-19 19:27] MED LIST changes: +METO-310 PO
[2019-07-19] MEDS ORDERED: NS IV 1000 ML 1,000 ML IV STA (19:32)
[2019-07-19] MEDS ORDERED: ONDANSETRON 4 MG/2 ML (SDV) Z0FRAN IVP ONE ×2 (19:45→20:15)
[2019-07-19 19:51] LABS: BASOPHILS % (AUTO) 0 % (0-10); EOSINOPHILS # (AUTO) 0.1 10^3/uL (0.0-0.3); EOSINOPHILS % (AUTO) 1 % (0-10); HEMATOCRIT 39 % (40-54); HEMOGLOBIN 13.7 G/DL (13.3-17.7); LYMPHOCYTES # (AUTO) 2.1 X 10^3 (1.0-4.0); LYMPHOCYTES % (AUTO) 24 % (12-44); MEAN CORPUSCULAR HEMOGLOBIN 30 PG (25-34); MEAN CORPUSCULAR HGB CONC 36 G/DL (32-36); MEAN CORPUSCULAR VOLUME 83 FL (80-99); MEAN PLATELET VOLUME 9.1 FL (7.4-10.4); MONOCYTES # (AUTO) 0.5 X 10^3 (0.0-1.0); MONOCYTES % (AUTO) 6 % (0-12); NEUTROPHILS # (AUTO) 5.8 X 10^3 (1.8-7.8); NEUTROPHILS % (AUTO) 69 % (42-75); PLATELET COUNT 293 10^3/uL (130-400); RED CELL DISTRIBUTION WIDTH 12.9 % (10.0-14.5); WHITE BLOOD COUNT 8.5 10^3/uL (4.3-11.0)
[2019-07-19 20:09] LABS: ABG BASE EXCESS 0.6 MMOL/L (-2.5-2.5); ABG OXYGEN SATURATION 98 % (94-100); ABG PCO2 40 MMHG (35-45); ABG PH 7.41 (7.37-7.43); ABG PO2 94 MMHG (79-93)
[2019-07-19 20:11] LABS: ALLENS TEST YES-POS; INSPIRED O2 ROOM AIR; PATIENT TEMP 36.8; VENTILATOR NO
[2019-07-19 20:12] LABS: ALANINE AMINOTRANSFERASE 47 U/L (0-55); ALKALINE PHOSPHATASE 119 U/L (40-136); AMYLASE 56 U/L (25-125); BILIRUBIN,TOTAL 0.7 MG/DL (0.1-1.0); BUN/CREATININE RATIO 13; CALCIUM 9.2 MG/DL (8.5-10.1); CARBON DIOXIDE 21 MMOL/L (21-32); CHLORIDE 105 MMOL/L (98-107); CREATININE SERUM 0.83 MG/DL (0.60-1.30); GFR ESTIMATED > 60; GLUCOSE 216 MG/DL (70-105); LIPASE 104 U/L (8-78); MAGNESIUM 1.9 MG/DL (1.6-2.4); PHOSPHORUS 2.4 MG/DL (2.3-4.7); POTASSIUM 3.9 MMOL/L (3.6-5.0); SODIUM 139 MMOL/L (135-145)
[2019-07-19] MEDS ORDERED: NS IV 1000 ML 1,000 ML IV SCH (20:13)
--- NOTE | 2019-07-19 20:26 | ED General ---
General Chief Complaint: Glucose Problems Stated Complaint: VOMITING Nursing Triage Note: C/O N/V/D SINCE MONDAY Nursing Sepsis Screen: No Definite Risk Source of Information: Patient, Old Records History of Present Illness Date Seen by Provider: Jul 19, 2019 Time Seen by Provider: 19:32 Initial Comments PT ARRIVES VIA POV FROM HOME PT STATES HE HAS HAD NAUSEA/VOMITING/DIARRHEA AND ABDOMINAL PAIN SINCE MONDAY STATES HE HAS NOT BEEN ABLE TO KEEP ANYTHING DOWN FOR THE LAST COUPLE OF HOURS PT DID HAVE A SANDWICH FOR LUNCH, AND KEPT IT DOWN, BUT DID NOT KEEP SUPPER DOWN C/O VOMITING X 4-5 TODAY STATES HE HAS HAD DIARRHEA X 4 TODAY NO FEVER NO PROBLEMS URINATING AND VOIDING A NORMAL AMOUNT MULTIPLE FAMILY MEMBERS ILL WITH SAME GI SYMPTOMS NO SUSPICIOUS FOODS PT STATES "I THINK I'M IN DKA AGAIN" PT IS TYPE 1 DIABETIC, DX AGE 11, [place]. PT HAS HAD MULTIPLE ADMITS FOR DKA IN THE PAST PT HAS NOT CHECKED HIS BLOOD SUGAR TODAY--STATES "NO REASON" WHY HE DID NOT CHECK IT TODAY STATES HE DID TAKE 15 UNITS OF NOVOLOG AROUND 1730 TODAY. PT HAS A LONG HISTORY OF NONCOMPLIANCE IN ALL ASPECTS OF CARE. 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 [employer] WHEN HE WAS FIRST DIAGNOSED AT AGE 11 PCP: [facility] [place] Allergies and Home Medications Allergies Coded Allergies: Penicillins (Verified Allergy, Unknown, 05/23/06) Home Medications Insulin Aspart 300 Units/3 Ml Solution, SQ AC, (Reported) PATIENT INJECTS 2 UNITS PER CARBOHYDRATE WITH MEALS Insulin Detemir 100 Unit/1 Ml Insuln.pen, 15 UNITS SQ HS, (Reported) Metoclopramide HCl 10 Mg Tablet, 10 MG PO TID, (Reported) Patient Home Medication List Home Medication List Reviewed: Yes Review of Systems Review of Systems Constitutional: No chills, No diaphoresis, No dizziness, No fever; malaise, weakness EENTM: no symptoms reported Respiratory: no symptoms reported; No cough, No short of breath Cardiovascular: no symptoms reported Gastrointestinal: see HPI, abdominal pain, diarrhea, loss of appetite, nausea, vomiting Genitourinary: no symptoms reported; No decreased output Musculoskeletal: no symptoms reported Skin: no symptoms reported Psychiatric/Neurological: No Symptoms Reported; Denies Headache Hematologic/Lymphatic: No Symptoms Reported Immunological/Allergic: no symptoms reported Past Bwvrzbo-Ilaqgs-Ymhbzj Hx Patient Social History Alcohol Use: Occasionally Uses (USED TO DRINK ALOT MORE, NOW ONLY OCCASIONALLY DRINKS) Recreational Drug Use: No Smoking Status: Former Smoker (1/2 PPD, QUIT 2011) Type Used: Cigarettes Former Smoker, Quit: Sep 28, 2012 2nd Hand Smoke Exposure: No Recent Foreign Travel: No Contact w/Someone Who Travel: No Recent Infectious Disease Expo: No Recent Hopitalizations: No Physical Abuse: No Sexual Abuse: No Mistreated: No Immunizations Up To Date Tetanus Booster (TDap): Unknown PED Vaccines UTD: No Seasonal Allergies Seasonal Allergies: No Past Medical History Surgeries: No Respiratory: Yes Pneumonia Currently Using CPAP: No Currently Using BIPAP: No Cardiac: Yes (CARDIOMYOPATHY DX 2016) Cardiomyopathy Neurological: No Reproductive Disorders: No Sexually Transmitted Disease: No HIV/AIDS: No Genitourinary: No Gastrointestinal: Yes (GASTROPARESIS) Musculoskeletal: No Endocrine: Yes (DX AGE 11, [place] 2001; MULTIPLE ADMITS FOR DKA) Diabetes, Insulin dep Cancer: No Did You Recieve Any Treatments: No Psychosocial: No Integumentary: Yes (WOUNDS TO LOWER LEGS-- REQUIRED WOUND [facility] CL[facility]) Blood Disorders: No Adverse Reaction/Blood Tranf: No Family Medical History Cancer Physical Exam Vital Signs Vital Signs - First Documented 07/19/19 19:38 Temp 37.0 Pulse 120 Resp 22 B/P (MAP) 141/97 (112) Pulse Ox 99 Capillary Refill : Less Than 3 Seconds Height, Weight, BMI Height: 5'11.00" Weight: 126lbs. 0.0oz. [id number]; 17.00 BMI Method:Stated General Appearance: No Apparent Distress, Cachetic HEENT: PERRL/EOMI, Other (ORAL MUCOSA SLIGHTLY DRY) Neck: Normal Inspection Respiratory: Normal Breath Sounds, No Accessory Muscle Use, No Respiratory Distress Cardiovascular: No Edema, No JVD, No Murmur, Normal Peripheral Pulses, Tachycardia (110-115) Gastrointestinal: Normal Bowel Sounds, No Organomegaly, No Pulsatile Mass, Soft, Tenderness (MILD DIFFUSE TENDERNESS, MODERATE TENDERNESS IN EPIGASTRIC AREA) Back: No CVA Tenderness Extremity: Normal Capillary Refill, Normal Inspection, Normal Range of Motion, Non Tender, No Calf Tenderness, No Pedal Edema Neurologic/Psychiatric: Alert, Oriented x3, No Motor/Sensory Deficits, Normal Mood/Affect, nursing aide II-XII Norm as Tested Skin: Warm/Dry, Pallor; No Rash Focused Exam Lactate Level 07/19/19 19:47: Lactic Acid Level 3.82*H 07/19/19 21:40: Lactic Acid Level Laboratory Tests Test 07/19/19 19:47 07/19/19 21:40 Lactic Acid Level 3.82 MMOL/L (0.50-2.00) *H Progress/Results/Core Measures Suspected Sepsis Recent Fever Within 48 Hours: No Infection Criteria Present: None New/Unexplained Altered Menta: No Sepsis Screen: No Definite Risk SIRS Temperature: Pulse: 120 Respiratory Rate: 22 Laboratory Tests 07/19/19 19:35: White Blood Count 8.5 Blood Pressure 141 /97 Mean: 112 07/19/19 19:47: Lactic Acid Level 3.82*H 07/19/19 21:40: Laboratory Tests 07/19/19 19:35: Creatinine 0.83, Platelet Count 293, Total Bilirubin 0.7 Results/Orders Lab Results Laboratory Tests Test 07/19/19 19:35 07/19/19 19:47 07/19/19 20:03 07/19/19 21:24 Range/Units White Blood Count 8.5 4.3-11.0 10^3/uL Red Blood Count 4.64 4.35-5.85 10^6/uL Hemoglobin 13.7 13.3-17.7 G/DL Hematocrit 39 L 40-54 % Mean Corpuscular Volume 83 80-99 FL Mean Corpuscular Hemoglobin 30 25-34 PG Mean Corpuscular Hemoglobin Concent 36 32-36 G/DL Red Cell Distribution Width 12.9 10.0-14.5 % Platelet Count 293 130-400 10^3/uL Mean Platelet Volume 9.1 7.4-10.4 FL Neutrophils (%) (Auto) 69 42-75 % Lymphocytes (%) (Auto) 24 12-44 % Monocytes (%) (Auto) 6 0-12 % Eosinophils (%) (Auto) 1 0-10 % Basophils (%) (Auto) 0 0-10 % Neutrophils # (Auto) 5.8 1.8-7.8 X 10^3 Lymphocytes # (Auto) 2.1 1.0-4.0 X 10^3 Monocytes # (Auto) 0.5 0.0-1.0 X 10^3 Eosinophils # (Auto) 0.1 0.0-0.3 10^3/uL Basophils # (Auto) 0.0 0.0-0.1 10^3/uL Sodium Level 139 135-145 MMOL/L Potassium Level 3.9 3.6-5.0 MMOL/L Chloride Level 105 98-107 MMOL/L Carbon Dioxide Level 21 21-32 MMOL/L Anion Gap 13 5-14 MMOL/L Blood Urea Nitrogen 11 7-18 MG/DL Creatinine 0.83 0.60-1.30 MG/DL Estimat Glomerular Filtration Rate > 60 BUN/Creatinine Ratio 13 Glucose Level 216 H 70-105 MG/DL Glucometer 191 H 70-110 MG/DL Calcium Level 9.2 8.5-10.1 MG/DL Corrected Calcium 9.2 8.5-10.1 MG/DL Phosphorus Level 2.4 2.3-4.7 MG/DL Magnesium Level 1.9 1.6-2.4 MG/DL Total Bilirubin 0.7 0.1-1.0 MG/DL Aspartate Amino Transf (AST/SGOT) 39 H 5-34 U/L Alanine Aminotransferase (ALT/SGPT) 47 0-55 U/L Alkaline Phosphatase 119 40-136 U/L Total Protein 7.0 6.4-8.2 GM/DL Albumin 4.0 3.2-4.5 GM/DL Amylase Level 56 25-125 U/L Lipase 104 H 8-78 U/L Free Thyroxine 1.45 0.70-1.48 NG/DL TSH [place] Testing 0.01 L 0.35-4.94 UIU/ML Lactic Acid Level 3.82 *H 0.50-2.00 MMOL/L Blood Gas Puncture Site R RADIAL Blood Gas Patient Temperature 36.8 Arterial Blood pH 7.41 7.37-7.43 Arterial Blood Partial Pressure CO2 40 35-45 MMHG Arterial Blood Partial Pressure O2 94 H 79-93 MMHG Arterial Blood HCO3 25 23-27 MMOL/L Arterial Blood Total CO2 26.0 21.0-31.0 MMOL/L Arterial Blood Oxygen Saturation 98 94-100 % Arterial Blood Base Excess 0.6 -2.5-2.5 MMOL/L Bony Test YES-POS Blood Gas Ventilator Setting NO Blood Gas Inspired Oxygen ROOM AIR Urine Color YELLOW Urine Clarity CLEAR Urine pH 5 5-9 Urine Specific [place] 1.010 L 1.016-1.022 Urine Protein 2+ H NEGATIVE Urine Glucose (UA) 4+ H NEGATIVE Urine Ketones NEGATIVE NEGATIVE Urine Nitrite NEGATIVE NEGATIVE Urine Bilirubin NEGATIVE NEGATIVE Urine Urobilinogen NORMAL NORMAL MG/DL Urine Leukocyte Esterase NEGATIVE NEGATIVE Urine RBC (Auto) 2+ H NEGATIVE Urine RBC 25-50 H /HPF Urine WBC NONE /HPF Urine Squamous Epithelial Cells NONE /HPF Urine Crystals NONE /LPF Urine Bacteria TRACE /HPF Urine Casts NONE /LPF Urine Mucus NEGATIVE /LPF Urine Culture Indicated NO Test 07/19/19 21:40 Range/Units My Orders Orders - NICOL SUÁREZ K DO Accucheck Stat ONCE (07/19/19 19:32) Ed Iv/Invasive Line Start (07/19/19 19:32) Monitor-Rhythm Ecg Trace Only (07/19/19 19:32) Amylase (07/19/19 19:32) Arterial Blood Gas (07/19/19 19:32) Cbc With Automated Diff (07/19/19 19:32) Comprehensive Metabolic Panel (07/19/19:32) Lactic Acid Analyzer (07/19/19 19:32) Lipase (07/19/19 19:32) Magnesium (07/19/19 19:32) Thyroid Analyzer (07/19/19 19:32) Ua Culture If Indicated (07/19/19 19:32) Phosphorus (07/19/19 19:32) Ondansetron Injection (Zofran Injectio (07/19/19 19:45) Ns Iv 1000 Ml (Sodium Chloride 0.9%) (07/19/19 19:32) Ed Iv/Invasive Line Start (07/19/19 19:32) Ct Abdomen/Pelvis W (07/19/19 20:13) Acute Abd Series (07/19/19 20:13) Ed Iv/Invasive Line Start (07/19/19 20:13) Ns Iv 1000 Ml (Sodium Chloride 0.9%) (07/19/19 20:13) Ondansetron Injection (Zofran Injectio (07/19/19 20:15) Free T4 (Free Thyroxine) (07/19/19 19:35) Medications Given in ED Current Medications Medications Dose Ordered Sig/Luis Route Start Time Stop Time Status Last Admin Dose Admin Ondansetron HCl 8 mg ONCE ONCE IVP 07/19/19 19:45 10/4/19 19:46 DC 07/19/19 19:54 8 MG Ondansetron HCl 8 mg ONCE ONCE IVP 07/19/19 20:15 07/19/19 20:16 DC 07/19/19 20:45 8 MG Vital Signs/I&O 07/19/19 19:38 Temp 37.0 Pulse 120 Resp 22 B/P (MAP) 141/97 (112) Pulse Ox 99 Capillary Refill : Less Than 3 Seconds Blood Pressure Mean: 112 Progress Note : Progress Note NAUSEA IMPROVED WITH ZOFRAN GIVEN FLUIDS NO VOMITING OR DIARRHEA DURING ER STAY PT TOLERATING ICE CHIPS AND WATER PRIOR TO DISMISSAL STATES HE FEELS MUCH BETTER PT SITTING UP, SMILING, MORE TALKATIVE. ACCUCHECK 191 ON ARRIVAL Diagnostic Imaging Comments ABDOMEN XRAYS--NO ACUTE PROCESS CT ABDOMEN /PELVIS--NO ACUTE PROCESS, LIVER MILDLY PROMINENT PER RADIOLOGIST REPORTS AT 2101 Reviewed: Reviewed by Me Departure Impression Primary Impression: Gastroenteritis Additional Impressions: Type 1 diabetes mellitus Microscopic hematuria Disposition: HOME, SELF-CARE Condition: Improved Departure-Patient Inst. Referrals: HILARIO FISHMAN DO (PCP) Primary Care Physician EMIL TORRES (Family) Primary Care Physician Patient Instructions: Blood in the Urine (Hematuria), Adult (DC), Diabetes Type 1, Adult (DC), [id number], Sick Day Management for Diabetics Add. Discharge Instructions: CHECK YOUR BLOOD SUGAR AT LEAST 4 TIMES A DAY AND TAKE YOUR INSULIN EXACTLY PRESCRIBED FOLLOW UP WITH YOUR DR IN 1-2 DAYS IF NO BETTER, RETURN TO ER IF WORSE FOLLOW UP WITH YOUR DR NEXT WEEK TO RECHECK YOUR URINE CLEAR LIQUIDS --WATER, BROTH, JELLO, GATORADE TOMORROW IF YOU ARE BETTER, ADD BRATS DIET TO CLEAR LIQUIDS--BANANAS, RICE, APPLESAUCE, TOAST, SALTINES. All discharge instructions reviewed with patient and/or family. Voiced und erstanding. Scripts Ondansetron (Ondansetron Odt) 8 Mg Tab.rapdis 8 MG PO Q6H for Nausea/Vomiting, #10 TAB Prov: NICOL SUÁREZ DO 07/19/19 NICOL SUÁREZ DO Jul 19, 2019 20:26
[2019-07-19 20:32] LABS: TSH (THYROID ANALYZER) 0.01 UIU/ML (0.35-4.94)
--- NOTE | 2019-07-19 20:35 | Diagnostic Imaging Report ---
INDICATION: Nausea, vomiting and diarrhea Abdominal series performed with a frontal chest radiograph and supine and upright abdominal films. Heart and mediastinal silhouette are normal in appearance. The lungs appear clear. There is no pneumothorax or pleural fluid. There is no free intraperitoneal air. The abdomen shows a paucity of bowel gas but no overt obstruction. There are no suspicious calcifications. IMPRESSION: No sign of free air or bowel obstruction. Overall paucity of bowel gas. No acute abnormality in the chest. Dictated by: Dictated on workstation # [id number]
--- NOTE | 2019-07-19 21:00 | Diagnostic Imaging Report ---
INDICATION: Nausea, vomiting and diarrhea x 3 days. EXAMINATION: CT of the abdomen and pelvis were obtained with IV contrast bolus. COMPARISON: 11/14/2014. FINDINGS: The visualized portions of the lung bases are clear. There are no pleural fluid collections. There is no free intraperitoneal air. The liver appears prominent in size but shows no focal lesion. The gallbladder appears unremarkable. Spleen is not enlarged and shows no focal lesion. The splenic size appears to have decreased compared to 11/14/2014. The adrenals and pancreas appear normal. The kidneys, bilaterally, appear unremarkable. There is no retroperitoneal mass or adenopathy. There is no ascites or abnormal fluid collection. Visualized bowel loops show no sign of obstruction or focal bowel wall thickening. Urinary bladder appears unremarkable. The appendix appears unremarkable. IMPRESSION: The liver is prominent in size but shows no focal lesion. There is no abdominal mass or abnormal fluid collection or sign of bowel obstruction. The appendix appears normal. There is no acute abnormality otherwise seen. Dictated by: Dictated on workstation # [id number]
[2019-07-19 21:18] LABS: FREE T4 (FREE THYROXINE) 1.45 NG/DL (0.70-1.48)
[2019-07-19 21:47] LABS: BILIRUBIN,URINE NEGATIVE (NEGATIVE); CLARITY,URINE CLEAR; COLOR,URINE YELLOW; GLUCOSE, URINE (UA) 4+ (NEGATIVE); KETONES,URINE NEGATIVE (NEGATIVE); LEUKOCYTE ESTERASE ,URINE NEGATIVE (NEGATIVE); NITRITE,URINE NEGATIVE (NEGATIVE); PH,URINE 5 (5-9); PROTEIN,URINE 2+ (NEGATIVE); UROBILINOGEN,URINE NORMAL (NORMAL)
[2019-07-19 21:48] LABS: BACTERIA,URINE TRACE /HPF; RBC,URINE 25-50 /HPF
[2019-07-19] MEDS ORDERED: RX-ONDANSETRON 4 MG ODT (ZOFRAN) PPK #4 PO STA (22:01)
[2019-07-19] MEDS ORDERED: ONDA8TAB13 PO (22:05)
[2019-07-19 22:10] VITALS: BP 135/97
== END 2019-07-19 22:12 | disposition home or self-care (01) ==
LOC: EDUNIT# 19:27 → ER 19:28
DX: K52.9 Noninfective gastroenteritis and colitis, unspecified (principal); E10.43 Type 1 diabetes mellitus with diabetic autonomic (poly)neuropathy; K31.84 Gastroparesis; R31.21 Asymptomatic microscopic hematuria; Z88.0 Allergy status to penicillin; Z87.891 Personal history of nicotine dependence
CPT/HCPCS: 36415; 74022; 74177; 80053; 81000; 82150; 82805; 82962; 83605; 83690; 83735; 84100; 84439; 84443; 85025; 93041

== ENCOUNTER 2019-09-28 18:05 | Inpatient (IN) | payer SELFPAY ==
[~2019-09-28] VITALS: Ht 180.3 cm; Wt 58.3 kg
[~2019-09-28 18:05] MED LIST changes: +ONDA8TAB13 PO
[2019-09-28] MEDS ORDERED: NS IV 1000 ML 1,000 ML IV SCH ×2 (18:10)
--- NOTE | 2019-09-28 18:14 | ED General ---
General Chief Complaint: Glucose Problems Stated Complaint: HYPOGLYCEMIA Nursing Triage Note: pt brought in by [facility] with complaint of low blood sugar. per ems, pts glucose read "low" on glucometer. pt given iv bolus of d10. pt is reported to have virus, Nursing Sepsis Screen: No Definite Risk Source of Information: Patient, EMS Exam Limitations: No Limitations History of Present Illness Date Seen by Provider: Sep 28, 2019 Time Seen by Provider: 17:57 Initial Comments Patient arrives by EMS from home with chief complaint of hypoglycemia. EMS report when they arrived his blood sugar merely read low on the glucometer. They initiated a 20-gauge and gave him about 250 cc of D 10. Patient was shaking his head yes and now. Prior to that he was unresponsive. Patient also about 30 min utes ago he was walking around and earlier today he went to the walk-in clinic and was told he had some, viral illness. He said no swabs for blood tests were done at that time. He is a type I diabetic. He says he started feeling sick sometime yesterday with runny nose cough malaise, chills. He denies diarrhea, pain, ear pain, sore throat. Allergies and Home Medications Allergies Coded Allergies: Penicillins (Verified Allergy, Unknown, 05/23/06) Home Medications Insulin Aspart 300 Units/3 Ml Solution, SQ AC, (Reported) PATIENT INJECTS 2 UNITS PER CARBOHYDRATE WITH MEALS Insulin Detemir 100 Unit/1 Ml Insuln.pen, 15 UNITS SQ HS, (Reported) Metoclopramide HCl 10 Mg Tablet, 10 MG PO TID, (Reported) Ondansetron 8 Mg Tab.rapdis, 8 MG PO Q6H Prescribed by: NICOL SUÁREZ on 07/19/191 Patient Home Medication List Home Medication List Reviewed: Yes Review of Systems Review of Systems Constitutional: chills, diaphoresis, malaise EENTM: No ear discharge, No hearing loss, No ear pain Respiratory: cough; No phlegm, No short of breath Cardiovascular: No chest pain, No palpitations Gastrointestinal: No abdominal pain, No constipation, No diarrhea Genitourinary: No discharge, No dysuria Musculoskeletal: No back pain, No joint pain Skin: No pruritus, No rash Psychiatric/Neurological: Denies Headache, Denies Numbness, Denies Paresthesia All Other Systems Reviewed Negative Unless Noted: Yes Past Jrknvhw-Wenjqo-Mqsqkt Hx Patient Social History Alcohol Use: Denies Use Recreational Drug Use: No Smoking Status: Former Smoker Type Used: Cigarettes Former Smoker, Quit: Sep 28, 2012 2nd Hand Smoke Exposure: No Recent Foreign Travel: No Contact w/Someone Who Travel: No Recent Infectious Disease Expo: No Recent Hopitalizations: No Physical Abuse: No Sexual Abuse: No Mistreated: No Fear: No Immunizations Up To Date Tetanus Booster (TDap): Unknown PED Vaccines UTD: No Seasonal Allergies Seasonal Allergies: No Past Medical History Surgeries: No Respiratory: Yes Pneumonia Currently Using CPAP: No Currently Using BIPAP: No Cardiac: Yes (CARDIOMYOPATHY DX 2017) Cardiomyopathy Neurological: No Reproductive Disorders: No Sexually Transmitted Disease: No HIV/AIDS: No Genitourinary: No Gastrointestinal: Yes (GASTROPARESIS) Musculoskeletal: No Endocrine: Yes (DX AGE 11, [place] 2001; MULTIPLE ADMITS FOR DKA) Diabetes, Insulin dep Cancer: No Did You Recieve Any Treatments: No Psychosocial: No Integumentary: Yes (WOUNDS TO LOWER LEGS-- REQUIRED WOUND CARE CLINIC TREATMENT) Blood Disorders: No Adverse Reaction/Blood Tranf: No Family Medical History Cancer Physical Exam Vital Signs Vital Signs - First Documented 09/28/19 18:05 Pulse 97 Resp 16 B/P (MAP) 124/71 (88) Pulse Ox 97 O2 Delivery Room Air Capillary Refill : Less Than 3 Seconds Height, Weight, BMI Height: 5'11.00" Weight: 126lbs. 0.0oz. [id number]; 20.00 BMI Method:Stated General Appearance: Cachetic, Moderate Distress Eyes: Bilateral Eye Normal Inspection, Bilateral Eye PERRL, Bilateral Eye EOMI HEENT: PERRL/EOMI, TMs Normal, Normal ENT Inspection, Pharynx Normal; No Moist Mucous Membranes Neck: Full Range of Motion, Normal Inspection, Non Tender Respiratory: Lungs Clear, Normal Breath Sounds, No Accessory Muscle Use, No Respiratory Distress Cardiovascular: Regular Rate, Rhythm, No Edema, Normal Peripheral Pulses Gastrointestinal: Normal Bowel Sounds, Non Tender, Soft Neurologic/Psychiatric: Alert, Oriented x3, No Motor/Sensory Deficits Skin: Normal Color, Warm/Dry Focused Exam Lactate Level 09/28/19 18:15: Lactic Acid Level 3.57*H Lactic Acid Level Laboratory Tests Test 09/28/19 18:15 Lactic Acid Level 3.57 MMOL/L (0.50-2.00) *H Progress/Results/Core Measures Suspected Sepsis Recent Fever Within 48 Hours: No Infection Criteria Present: None New/Unexplained Altered Menta: No Sepsis Screen: No Definite Risk SIRS Temperature: Pulse: 97 Respiratory Rate: 16 Laboratory Tests 09/28/19 18:15: White Blood Count 9.6 Blood Pressure 124 /71 Mean: 88 09/28/19 18:15: Lactic Acid Level 3.57*H Laboratory Tests 09/28/19 18:15: Creatinine 0.74, INR Comment 1.0, Platelet Count 311, Total Bilirubin 0.3 Results/Orders Lab Results Laboratory Tests Test 09/28/19 00:00 09/28/19 18:12 09/28/19 18:15 09/28/19 18:40 Range/Units Glucometer 137 H 108 70-110 MG/DL White Blood Count 9.6 4.3-11.0 10^3/uL Red Blood Count 4.57 4.35-5.85 10^6/uL Hemoglobin 13.1 L 13.3-17.7 G/DL Hematocrit 38 L 40-54 % Mean Corpuscular Volume 83 80-99 FL Mean Corpuscular Hemoglobin 29 25-34 PG Mean Corpuscular Hemoglobin Concent 35 32-36 G/DL Red Cell Distribution Width 12.9 10.0-14.5 % Platelet Count 311 130-400 10^3/uL Mean Platelet Volume 8.7 7.4-10.4 FL Neutrophils (%) (Auto) 64 42-75 % Lymphocytes (%) (Auto) 28 12-44 % Monocytes (%) (Auto) 7 0-12 % Eosinophils (%) (Auto) 2 0-10 % Basophils (%) (Auto) 0 0-10 % Neutrophils # (Auto) 6.1 1.8-7.8 X 10^3 Lymphocytes # (Auto) 2.7 1.0-4.0 X 10^3 Monocytes # (Auto) 0.7 0.0-1.0 X 10^3 Eosinophils # (Auto) 0.1 0.0-0.3 10^3/uL Basophils # (Auto) 0.0 0.0-0.1 10^3/uL Prothrombin Time 13.8 12.2-14.7 SEC INR Comment 1.0 0.8-1.4 Activated Partial Thromboplast Time 25 24-35 SEC Blood Gas Puncture Site LT RAD Blood Gas Patient Temperature 35.2 Arterial Blood pH 7.34 *L 7.37-7.43 Arterial Blood Partial Pressure CO2 42 35-45 MMHG Arterial Blood Partial Pressure O2 79 79-93 MMHG Arterial Blood HCO3 23 23-27 MMOL/L Arterial Blood Total CO2 24.3 21.0-31.0 MMOL/L Arterial Blood Oxygen Saturation 98 94-100 % Arterial Blood Base Excess -2.3 -2.5-2.5 MMOL/L Bony Test POS Blood Gas Ventilator Setting NO Blood Gas Inspired Oxygen UNK Sodium Level 140 135-145 MMOL/L Potassium Level 2.9 L 3.6-5.0 MMOL/L Chloride Level 104 98-107 MMOL/L Carbon Dioxide Level 20 L 21-32 MMOL/L Anion Gap 16 H 5-14 MMOL/L Blood Urea Nitrogen 12 7-18 MG/DL Creatinine 0.74 0.60-1.30 MG/DL Estimat Glomerular Filtration Rate > 60 BUN/Creatinine Ratio 16 Glucose Level 153 H 70-105 MG/DL Lactic Acid Level 3.57 *H 0.50-2.00 MMOL/L Calcium Level 8.7 8.5-10.1 MG/DL Corrected Calcium 8.9 8.5-10.1 MG/DL Total Bilirubin 0.3 0.1-1.0 MG/DL Aspartate Amino Transf (AST/SGOT) 33 5-34 U/L Alanine Aminotransferase (ALT/SGPT) 50 0-55 U/L Alkaline Phosphatase 96 40-136 U/L Total Protein 6.6 6.4-8.2 GM/DL Albumin 3.8 3.2-4.5 GM/DL Monoscreen NEGATIVE NEGATIVE Test 09/28/19 19:25 Range/Units Group A Streptococcus Screen POSITIVE H NEGATIVE Micro Results Microbiology 09/28/19 Influenza Types A,B Antigen (KAMILLA) - Final, Complete My Orders Orders - WILNER NAYLOR Cbc With Automated Diff (09/28/19 18:10) Comprehensive Metabolic Panel (09/28/19 18:10) Blood Culture (09/28/19 18:10) Sputum Culture (09/28/19 18:10) Urinalysis (09/28/19 18:10) Urine Culture (09/28/19 18:10) Protime With Inr (09/28/19 18:10) Partial Thromboplastin Time (09/28/19 18:10) Chest 1 View, Ap/Pa Only (09/28/19 18:10) Ed Iv/Invasive Line Start (09/28/19 18:10) Ed Iv/Invasive Line Start (09/28/19 18:10) Vital Signs Adult Sepsis Patie Q15M (09/28/19 18:10) Ondansetron Injection (Zofran Injectio (09/28/19 18:15) O2 (09/28/19 18:10) Remove Rings In Anticipation O (09/28/19 18:10) Lactic Acid Analyzer (09/28/19 18:10) Influenza A And B Antigens (09/28/19 18:10) Ns Iv 1000 Ml (Sodium Chloride 0.9%) (09/28/19 18:10) Cefepime Injection (Maxipime Injection) (09/28/19 18:15) Ed Iv/Invasive Line Start (09/28/19 18:10) Ns Iv 1000 Ml (Sodium Chloride 0.9%) (09/28/19 18:10) Accucheck Stat ONCE (09/28/19 18:10) Arterial Blood Gas (09/28/19 18:10) Drug Screen Stat (Urine) (09/28/19 18:10) Respiratory Virus Panel By Pcr (09/28/19 18:13) Rapid Strep A Screen (09/28/19 18:22) Monotest (09/28/19 18:22) Promethazine Injection (Phenergan Injec (09/28/19 18:30) Promethazine Injection (Phenergan Injec (09/28/19 18:27) Arterial Blood Gas (09/28/19 18:32) Promethazine Injection (Phenergan Injec (09/28/19 18:45) Accucheck Stat ONCE (09/28/19 18:33) Dextrose 10% Iv Solution (D10w 250 Ml Iv (09/28/19 18:45) Potassium Cl 10meq/50ml Ivpb (Kcl 10 Meq (09/28/19 19:00) D5 1/2 Ns W/Kcl 40 Meq/L (Dextrose 5%/0. (09/28/19 19:00) Dextrose 10% Iv Solution (D10w 1000 Ml I (09/28/19 18:54) Medications Given in ED Current Medications Medications Dose Ordered Sig/Luis Route Start Time Stop Time Status Last Admin Dose Admin Cefepime HCl 1000 mg/Sterile Water 10 ml @ 200 mls/hr ONCE ONCE IV 09/28/19 18:15 09/28/19 18:17 DC 09/28/19 18:21 200 MLS/HR Ondansetron HCl 8 mg PRN PRN IV 09/28/19 18:15 09/28/19 18:21 DC 09/28/19 18:20 8 MG Potassium Chloride 50 ml @ 50 mls/hr ONCE ONCE IV 09/28/19 19:00 09/28/19 19:59 DC 09/28/19 19:21 50 MLS/HR Promethazine HCl 25 mg ONCE ONCE IVP 09/28/19 18:30 09/28/19 18:31 DC 09/28/19 18:33 25 MG Vital Signs/I&O 09/28/19 09/28/19 18:05 18:53 Pulse 97 97 Resp 16 16 B/P (MAP) 124/71 (88) 130/84 Pulse Ox 97 87 O2 Delivery Room Air Capillary Refill : Less Than 3 Seconds Blood Pressure Mean: 88 POS Progress Note : Time: 18:33 Progress Note septic workup, flu, strep and mono as well as viral pcr panel. Repeat ACCucheck in 10-15 mins. Diagnostic Imaging Diagonstic Imaging: Xray Plain Films/CT/US/NM/MRI: chest (1v) Comments NAME: MEME WEISSN [facility] REC#: [id number] PT STATUS: REG ER : 1990 PHYSICIAN: WILNER NAYLOR MD ADMIT DATE: 09/28/19/ER Draft POSDate of Exam:09/28/19 CHEST 1 VIEW, AP/PA ONLY PATIENT HISTORY: Nausea, vomiting. TECHNIQUE: Single frontal view of the chest. COMPARISON: 07/19/2019. FINDINGS: The lung volumes are normal. No focal consolidation is seen. No large pleural effusion or pneumothorax is seen. The cardiomediastinal silhouette is normal in size and contour. No acute osseous abnormality is seen. IMPRESSION: No acute pulmonary abnormality seen. Dictated on workstation # [id number] Dict: 09/28/19 1843 Trans: 09/28/19 1846 [facility] [id number] Interpreted by: CHUCK WU MD Electronically signed by: Reviewed: Reviewed by Me Departure Communication (Admissions) Time/Spoke to Admitting Phy: 19:25 Discussed case lab imaging findings with Dr. Yan he agrees to take the patient on for IV fluids, potassium replacement and hypoglycemia management. He agrees with 15 units Levemir subcutaneous daily at bedtime as previously scheduled and sliding scale insulin. Impression Primary Impression: Hypoglycemia Additional Impressions: Type 1 diabetes mellitus Qualified Codes: E10.69 - Type 1 diabetes mellitus with other specified complication Dehydration Viral gastroenteritis Acute streptococcal pharyngitis Disposition: ADMITTED INPATIENT Condition: Stable Admissions Decision to Admit Reason: Admit from ER (General) Decision to Admit/Date: Sep 28, 2019 Time/Decision to Admit Time: 19:15 Departure-Patient Inst. Referrals: HILARIO FISHMAN DO (PCP) Primary Care Physician EMIL TORRES (Family) Primary Care Physician WILNER NAYLOR Sep 28, 2019 18:14 POS
[2019-09-28] MEDS ORDERED: ONDANSETRON 4 MG/2 ML (SDV) Z0FRAN IV PRN ×2 (18:15→20:30)
[2019-09-28] MEDS ORDERED: CEFEPIME INJECTION 1,000 MG in WATER (STERILE) FOR INJECTION 10 ML IV ONE (18:15)
[2019-09-28 18:25] LABS: ABG BASE EXCESS -2.3 MMOL/L (-2.5-2.5); ABG OXYGEN SATURATION 98 % (94-100); ABG PCO2 42 MMHG (35-45); ABG PO2 79 MMHG (79-93); ABG TCO2 24.3 MMOL/L (21.0-31.0)
[2019-09-28] MEDS ORDERED: PROMETHAZINE INJ 25 MG/ML (PHENERGAN) AMP ONE (18:27)
[2019-09-28 18:28] LABS: ABG PH 7.34 (7.37-7.43); ALLENS TEST POS; PATIENT TEMP 35.2; VENTILATOR NO
[2019-09-28] MEDS ORDERED: PROMETHAZINE INJ 25 MG/ML (PHENERGAN) AMP IVP ONE ×2 (18:30→18:45)
[2019-09-28 18:33] LABS: BASOPHILS % (AUTO) 0 % (0-10); EOSINOPHILS # (AUTO) 0.1 10^3/uL (0.0-0.3); EOSINOPHILS % (AUTO) 2 % (0-10); HEMATOCRIT 38 % (40-54); HEMOGLOBIN 13.1 G/DL (13.3-17.7); LYMPHOCYTES # (AUTO) 2.7 X 10^3 (1.0-4.0); LYMPHOCYTES % (AUTO) 28 % (12-44); MEAN CORPUSCULAR HEMOGLOBIN 29 PG (25-34); MEAN CORPUSCULAR HGB CONC 35 G/DL (32-36); MEAN CORPUSCULAR VOLUME 83 FL (80-99); MEAN PLATELET VOLUME 8.7 FL (7.4-10.4); MONOCYTES # (AUTO) 0.7 X 10^3 (0.0-1.0); MONOCYTES % (AUTO) 7 % (0-12); NEUTROPHILS # (AUTO) 6.1 X 10^3 (1.8-7.8); NEUTROPHILS % (AUTO) 64 % (42-75); PLATELET COUNT 311 10^3/uL (130-400); RED CELL DISTRIBUTION WIDTH 12.9 % (10.0-14.5); WHITE BLOOD COUNT 9.6 10^3/uL (4.3-11.0)
[2019-09-28 18:42] LABS: PROTHROMBIN TIME PATIENT 13.8 SEC (12.2-14.7)
[2019-09-28] MEDS ORDERED: DEXTROSE 10% IV SOLUTION 250 ML IV SCH (18:45)
--- NOTE | 2019-09-28 18:46 | Diagnostic Imaging Report ---
PATIENT HISTORY: Nausea, vomiting. TECHNIQUE: Single frontal view of the chest. COMPARISON: 07/19/2019. FINDINGS: The lung volumes are normal. No focal consolidation is seen. No large pleural effusion or pneumothorax is seen. The cardiomediastinal silhouette is normal in size and contour. No acute osseous abnormality is seen. IMPRESSION: No acute pulmonary abnormality seen. Dictated by: Dictated on workstation # [id number]
[2019-09-28 18:51] LABS: ALANINE AMINOTRANSFERASE 50 U/L (0-55); ALBUMIN 3.8 GM/DL (3.2-4.5); ALKALINE PHOSPHATASE 96 U/L (40-136); BILIRUBIN,TOTAL 0.3 MG/DL (0.1-1.0); BUN/CREATININE RATIO 16; CALCIUM 8.7 MG/DL (8.5-10.1); CARBON DIOXIDE 20 MMOL/L (21-32); CHLORIDE 104 MMOL/L (98-107); CREATININE SERUM 0.74 MG/DL (0.60-1.30); GFR ESTIMATED > 60; GLUCOSE 153 MG/DL (70-105); POTASSIUM 2.9 MMOL/L (3.6-5.0); SODIUM 140 MMOL/L (135-145); TOTAL PROTEIN 6.6 GM/DL (6.4-8.2)
[2019-09-28] MEDS ORDERED: DEXTROSE 10% IV SOLUTION 0 ML IV ONE (18:54)
[2019-09-28] MEDS ORDERED: POTASSIUM CL 10MEQ/50ML IVPB 50 ML IV ONE (19:00)
--- NOTE | 2019-09-28 19:05 | NUR ---
called hs for medications
[2019-09-28] MEDS: D5 1/2 NS W/KCL 40 MEQ/L 1,000 ML IV SCH ×3 (19:20→20:41)
--- NOTE | 2019-09-28 19:20 | NUR ---
urinal provided, pt denies being able to void at this time.
--- NOTE | 2019-09-28 20:15 | NUR ---
CHEMO WEISS admitted to room 421-1, with an admitting diagnosis of VIRAL GASTROENTERITIS, HYPOGLYCEMIA, AND DEHYDRATION, on 09/28/19 from [facility], accompanied by STAFF.CHEMO WEISS introduced to surroundings, call light, bed controls, phone, TV, temperature control, lights, meal times, smoking policy, visitor policy, side rail policy, bathrooms and showers. Patient Rights given to patient in the handbook. CHEMO WEISS verbalizes understanding that [facility] is not responsible for the loss or damage to any personal effects or valuables that are kept in the patients posession during their hospitalization.
[2019-09-28] MEDS ORDERED: METOCLOPRAMIDE 10 MG (REGLAN) TAB PO PRN (20:30)
[2019-09-28] MEDS ORDERED: ACETAMINOPHEN 500 MG TAB (TYLENOL) PO PRN (20:30)
[2019-09-28] MEDS ORDERED: PROMETHAZINE INJ 25 MG/ML (PHENERGAN) AMP IV PRN (20:30)
[2019-09-28] MEDS ORDERED: LOPERAMIDE 2 MG (IMODIUM) TABLET PO PRN (20:30)
--- NOTE | 2019-09-28 20:30 | NUR ---
UA, UDS, AND MRSA NASAL SWAB COLLECTED AT THIS TIME.
[2019-09-28 20:42] VITALS: BP 104/66
[2019-09-28 20:46] LABS: BILIRUBIN,URINE NEGATIVE (NEGATIVE); CLARITY,URINE CLEAR; COLOR,URINE YELLOW; GLUCOSE, URINE (UA) 3+ (NEGATIVE); KETONES,URINE NEGATIVE (NEGATIVE); LEUKOCYTE ESTERASE ,URINE 1+ (NEGATIVE); NITRITE,URINE NEGATIVE (NEGATIVE); PROTEIN,URINE TRACE (NEGATIVE)
[2019-09-28 21:02] LABS: AMPHETAMINE SCREEN, URINE NEGATIVE (NEGATIVE); BACTERIA,URINE TRACE /HPF; BARBITURATE SCREEN URINE NEGATIVE (NEGATIVE); BENZODIAZEPINES SCREEN URINE NEGATIVE (NEGATIVE); CANNABINOID SCREEN, URINE POSITIVE (NEGATIVE); COCAINE SCREEN URINE NEGATIVE (NEGATIVE); METHADONE STAT NEGATIVE (NEGATIVE); METHAMPHETAMINE SCREEN URINE S NEGATIVE (NEGATIVE); OPIATE SCREEN URINE NEGATIVE (NEGATIVE); OXYCODONE STAT NEGATIVE (NEGATIVE); PROPOXYPHENE STAT NEGATIVE (NEGATIVE); TRICYCLIC ANTIDEPRESSANTS SCRE NEGATIVE (NEGATIVE); WBC,URINE 50-100 /HPF
[2019-09-28 21:03] LABS: SQUAMOUS EPITHELIAL CELL,UR RARE /HPF
[2019-09-28] MEDS: NovoLOG/HumaLOG RANGE A SC SCH (21:23)
[2019-09-28] MEDS: CEFDINIR 300 MG (OMNICEF) CAP PO SCH (21:29)
[2019-09-29 00:28] VITALS: BP 144/92
[2019-09-29 04:00] VITALS: BP 121/76
[2019-09-29 05:22] LABS: BASOPHILS % (AUTO) 0 % (0-10); EOSINOPHILS # (AUTO) 0.1 10^3/uL (0.0-0.3); EOSINOPHILS % (AUTO) 1 % (0-10); HEMATOCRIT 37 % (40-54); HEMOGLOBIN 12.8 G/DL (13.3-17.7); LYMPHOCYTES # (AUTO) 1.6 X 10^3 (1.0-4.0); LYMPHOCYTES % (AUTO) 14 % (12-44); MEAN CORPUSCULAR HEMOGLOBIN 29 PG (25-34); MEAN CORPUSCULAR HGB CONC 35 G/DL (32-36); MEAN CORPUSCULAR VOLUME 84 FL (80-99); MEAN PLATELET VOLUME 8.8 FL (7.4-10.4); MONOCYTES # (AUTO) 0.7 X 10^3 (0.0-1.0); MONOCYTES % (AUTO) 6 % (0-12); NEUTROPHILS # (AUTO) 9.6 X 10^3 (1.8-7.8); NEUTROPHILS % (AUTO) 80 % (42-75); PLATELET COUNT 270 10^3/uL (130-400); RED CELL DISTRIBUTION WIDTH 13.2 % (10.0-14.5)
[2019-09-29] MEDS: D5 1/2 NS W/KCL 40 MEQ/L 1,000 ML IV SCH ×2 (05:41→05:42)
[2019-09-29] MEDS: NovoLOG/HumaLOG RANGE A SC SCH ×2 (05:43→11:50)
[2019-09-29 05:44] LABS: ALANINE AMINOTRANSFERASE 84 U/L (0-55); ALBUMIN 3.5 GM/DL (3.2-4.5); ALKALINE PHOSPHATASE 104 U/L (40-136); BILIRUBIN,TOTAL 0.4 MG/DL (0.1-1.0); BUN/CREATININE RATIO 10; CARBON DIOXIDE 18 MMOL/L (21-32); CHLORIDE 109 MMOL/L (98-107); CREATININE SERUM 0.63 MG/DL (0.60-1.30); GFR ESTIMATED > 60; GLUCOSE 125 MG/DL (70-105); POTASSIUM 4.1 MMOL/L (3.6-5.0); SODIUM 139 MMOL/L (135-145); TOTAL PROTEIN 6.1 GM/DL (6.4-8.2)
[2019-09-29] MEDS ORDERED: FLU QUADRIvalent (5+ YOA) 2019-2020 (AFLURIA) 0.5 ML IM ONE ×2 (07:15→12:54)
[2019-09-29 07:52] VITALS: BP 119/69
[2019-09-29] MEDS: CEFDINIR 300 MG (OMNICEF) CAP PO SCH (08:53)
--- NOTE | 2019-09-29 09:59 | Short Stay Summary-Hospitalist ---
History of Present Illness HPI/Chief Complaint Patient arrives by EMS from home with chief complaint of hypoglycemia. EMS report when they arrived his blood sugar merely read low on the glucometer. They initiated a 20-gauge and gave him about 250 cc of D 10. Patient was shaking his head yes and now. Prior to that he was unresponsive. Patient also about 30 minutes ago he was walking around and earlier today he went to the walk-in clinic and was told he had some, viral illness. He said no swabs for blood tests were done at that time. He is a type I diabetic. He says he started feeling sick sometime yesterday with runny nose cough malaise, chills. He denies diarrhea, pain, ear pain, sore throat. Upon my arrival the morning of the the patient and just finished breakfast including quintanilla and eggs. He denied nausea or abdominal pain and he said no hypoglycemia overnight on a D5 drip maintaining normal blood sugars. He denies any problems sore throat or lymphadenopathy. He had mildly elevated liver function tests reports he believes this is not a new finding and that he has been tested for hepatitis which was negative. He does not recall a past history of mono and reports no alcohol intake or significant drinking history. Date Seen 09/29/19 Time Seen by a Provider: 08:30 Attending Physician Mukund Yan MD PCP Hilario Alonzo DO Referring Physician Date of Admission Sep 28, 2019 at 19:30 Home Medications & Allergies Home Medications Reviewed patient Home Medication Reconciliation performed by pharmacy medication reconciliations field installation technician and/or nursing. Patients Allergies have been reviewed. Allergies Allergies Coded Allergies Penicillins (Verified Allergy, Unknown, 05/23/06) Past Ijwxtqo-Ymsbvu-Kcrrwo Hx Past Med/Social Hx: Reviewed and Corrections made Patient Social History Alcohol Use: Denies Use Recreational Drug Use: No Smoking Status: Former Smoker Former Smoker, Quit: Sep 28, 2012 Type Used: Cigarettes 2nd Hand Smoke Exposure: No Recent Foreign Travel: No Contact w/other who traveled: No Recent Hopitalizations: No Recent Infectious Disease Expo: No Immunizations Up To Date Tetanus Booster (TDap): Unknown Pediatric: No Date of Pneumonia Vaccine: Sep 15, 2013 Seasonal Allergies Seasonal Allergies: No Past Medical History Currently Using CPAP: No Currently Using BIPAP: No Cardiac: Cardiomyopathy Reproductive: No Sexually Transmitted Disease: No HIV/AIDS: No Endocrine: Diabetes, Insulin dep Did You Recieve Any Treatments: No History of Blood Disorders: No Adverse Reaction to Blood Ryan: No Family History Cancer Review of Systems Constitutional: see HPI Physical Exam Physical Exam Vital Signs Vital Signs - First Documented 09/28/19 09/28/19 18:05 20:05 Temp 36.2 Pulse 97 Resp 16 B/P (MAP) 124/71 (88) Pulse Ox 97 O2 Delivery Room Air Capillary Refill : Less Than 3 Seconds Height, Weight, BMI Height: 5'11.00" Weight: 126lbs. 0.0oz. 57.839651nr; 17.93 BMI Method:Stated General Appearance: No Apparent Distress, Cachetic Eyes: Bilateral Eye Normal Inspection, Bilateral Eye PERRL, Bilateral Eye EOMI HEENT: PERRL/EOMI, TMs Normal, Normal ENT Inspection, Pharynx Normal; No Moist Mucous Membranes Neck: Full Range of Motion, Normal Inspection, Non Tender Respiratory: Lungs Clear, Normal Breath Sounds, No Accessory Muscle Use, No Respiratory Distress Cardiovascular: Regular Rate, Rhythm, No Edema, Normal Peripheral Pulses Gastrointestinal: Normal Bowel Sounds, Non Tender, Soft Neurologic/Psychiatric: Alert, Oriented x3, No Motor/Sensory Deficits Skin: Normal Color, Warm/Dry Results Results/Procedures Labs Laboratory Tests 09/28/19 18:15 09/29/19 05:01 Patient resulted labs reviewed. Short Stay Diagnosis Discharge Diagnosis-Short Stay Admission Diagnosis A/P 1. Acute viral gastroenteritis most likely cause of nausea and vomiting. Currently resolved. 2. Hypoglycemia secondary to taking regular insulin and not being able to eat. 3. Elevated liver function studies unknown etiology 4. Type I diabetes mellitus Final Discharge Diagnosis As for admission diagnosis Conclusion Plan Patient was given Zofran and started on IV fluids with dextrose 5 percent. Overnight blood sugars have been normal patient is now tolerating solids reporting no difficulty. We did discuss need for follow-up liver function studies which are mildly elevated. The patient believes this is not a new finding and states that viral studies have been negative in the past making an acute viral cause of hepatitis less likely. Defer further workup to his primary care provider Dr. Alonzo. Patient had been seen at [facility] on Monday and has a prescription for metoclopramide which she can take on an as-needed basis. Discussed continuing his regular Levemir dose of 15 units at night monitoring his blood sugar more closely and for the next day or 2 decreasing his insulin units per carb ratio of 2-1 to1.5-1. Patient was advised to follow up with [facility] with repeat liver function studies etc. in 1-2 weeks. Advised avoiding any [id number] pain medication acetaminophen based or nonsteroidal base. Clinical Quality Measures DVT/VTE Risk/Contraindication: Risk Factor Score Per Nursin RFS Level Per Nursing on Admit: 1=Low/No VTE PPX Copy Copies To 1: HILARIO ALONZO MARK D MD Sep 29, 2019 09:59 POS
[2019-09-29 12:15] VITALS: BP 142/93
[2019-09-30 12:05] LABS: PARAINFLU 1 PCR Not Detected (Not Detected); PARAINFLU 2 PCR Not Detected (Not Detected); RSV PCR Not Detected (Not Detected)
== END 2019-09-29 13:36 | disposition home or self-care (01) | DRG 638 ==
LOC: EDUNIT# 18:05 → ER 18:07 → 4TH 19:30
PROVIDERS: ADMIT Internal Medicine; ATTEND Internal Medicine
DX: E10.649 Type 1 diabetes mellitus with hypoglycemia without coma (principal); A08.39 Other viral enteritis; E10.43 Type 1 diabetes mellitus with diabetic autonomic (poly)neuropathy; J02.0 Streptococcal pharyngitis; E86.0 Dehydration; I42.9 Cardiomyopathy, unspecified; R79.89 Other specified abnormal findings of blood chemistry; Z79.4 Long term (current) use of insulin; Z87.01 Personal history of pneumonia (recurrent); Z87.891 Personal history of nicotine dependence; Z23 Encounter for immunization
CPT/HCPCS: 36415; 71045; 80053; 80306; 81000; 82805; 82962; 83605; 85025; 85610; 85730; 86308; 87040; 87077; 87088; 87430; 87631; 87804

== ENCOUNTER 2019-11-18 23:14 | Inpatient (IN) | payer SELFPAY ==
[~2019-11-18] VITALS: Ht 180.3 cm; Wt 56.7 kg
[2019-11-18] MEDS ORDERED: NS IV 1000 ML 1,000 ML IV ONE (23:19)
[2019-11-18] MEDS ORDERED: ONDANSETRON 4 MG/2 ML (SDV) Z0FRAN IVP ONE (23:30)
[2019-11-18 23:36] LABS: BASOPHILS % (AUTO) 0 % (0-10); EOSINOPHILS # (AUTO) 0.1 10^3/uL (0.0-0.3); EOSINOPHILS % (AUTO) 1 % (0-10); HEMATOCRIT 43 % (40-54); HEMOGLOBIN 14.9 G/DL (13.3-17.7); LYMPHOCYTES # (AUTO) 0.9 X 10^3 (1.0-4.0); LYMPHOCYTES % (AUTO) 6 % (12-44); MEAN CORPUSCULAR HEMOGLOBIN 29 PG (25-34); MEAN CORPUSCULAR HGB CONC 34 G/DL (32-36); MEAN CORPUSCULAR VOLUME 85 FL (80-99); MONOCYTES # (AUTO) 0.7 X 10^3 (0.0-1.0); MONOCYTES % (AUTO) 5 % (0-12); NEUTROPHILS # (AUTO) 12.5 X 10^3 (1.8-7.8); NEUTROPHILS % (AUTO) 88 % (42-75); PLATELET COUNT 258 10^3/uL (130-400); RED CELL DISTRIBUTION WIDTH 13.8 % (10.0-14.5); WHITE BLOOD COUNT 14.2 10^3/uL (4.3-11.0)
[2019-11-18 23:55] LABS: ALANINE AMINOTRANSFERASE 78 U/L (0-55); ALBUMIN 4.2 GM/DL (3.2-4.5); ALKALINE PHOSPHATASE 118 U/L (40-136); BILIRUBIN,TOTAL 0.9 MG/DL (0.1-1.0); BUN/CREATININE RATIO 16; CALCIUM 9.2 MG/DL (8.5-10.1); CARBON DIOXIDE 13 MMOL/L (21-32); CHLORIDE 103 MMOL/L (98-107); CREATININE SERUM 1.08 MG/DL (0.60-1.30); GFR ESTIMATED > 60; MAGNESIUM 1.6 MG/DL (1.6-2.4); POTASSIUM 4.3 MMOL/L (3.6-5.0); SODIUM 134 MMOL/L (135-145); TOTAL PROTEIN 7.3 GM/DL (6.4-8.2)
[2019-11-18 23:56] LABS: GLUCOSE 405 MG/DL (70-105)
[2019-11-19] VITALS (20 sets, daily range): BP systolic 108–138; BP diastolic 58–100
[2019-11-19 00:04] LABS: LYMPHOCYTES % (MANUAL) 7 %; METAMYELOCYTES % 1 %; MONOCYTES % (MANUAL) 3 %; NEUTROPHILS % (MANUAL) 89 %; RBC MORPH NORMAL
[2019-11-19] MEDS ORDERED: NS IV 1000 ML 1,000 ML IV SCH ×2 (00:06→02:15)
[2019-11-19] MEDS ORDERED: inSUlin (REGULAR) HUMAN 1 UNIT/0.01 ML (CHARGE PER UNIT) SC ONE (00:15)
--- NOTE | 2019-11-19 00:34 | ED General ---
General Chief Complaint: Abdominal/GI Problems Stated Complaint: TYPE 1 DIABETES,N/D Nursing Triage Note: Pt ambulates to RM 7 with c/o N/V/D that started approx 1500 today. Pt states he is a type I diabetic, last checked his blood glucose at noon today, 176. Pt reports pain in LUQ of abd. Nursing Sepsis Screen: No Definite Risk Source of Information: Patient Exam Limitations: No Limitations History of Present Illness Date Seen by Provider: Nov 19, 2019 Time Seen by Provider: 23:19 Initial Comments This 29-year-old gentleman with type I diabetes presents to the emergency room with development of nausea, vomiting, diarrhea, and abdominal pain that started this afternoon. He has been afebrile. He has had a little bit of runny nose but denies any other acute symptoms of illness or infection. He normally takes insulin 17 units of Levemir at night and a sliding scale with meals. He takes 2 units per carb. Allergies and Home Medications Allergies Coded Allergies: Penicillins (Verified Allergy, Unknown, 05/23/06) Home Medications Insulin Aspart 300 Units/3 Ml Solution, SQ AC, (Reported) PATIENT INJECTS 2 UNITS PER CARBOHYDRATE WITH MEALS Insulin Detemir 100 Unit/1 Ml Insuln.pen, 15 UNITS SQ HS, (Reported) Metoclopramide HCl 10 Mg Tablet, 10 MG PO TID, (Reported) Ondansetron 8 Mg Tab.rapdis, 8 MG PO Q6H Prescribed by: NICOL SUÁREZ on 07/19/19 7549 Patient Home Medication List Home Medication List Reviewed: Yes Review of Systems Review of Systems Constitutional: no symptoms reported EENTM: see HPI Respiratory: no symptoms reported Cardiovascular: no symptoms reported Gastrointestinal: see HPI Genitourinary: no symptoms reported Musculoskeletal: no symptoms reported Skin: no symptoms reported Psychiatric/Neurological: No Symptoms Reported Hematologic/Lymphatic: No Symptoms Reported Immunological/Allergic: no symptoms reported Past Rvglrlg-Secuac-Mectso Hx Past Med/Social Hx: Reviewed Nursing Past Med/Soc Hx Patient Social History Alcohol Use: Denies Use Recreational Drug Use: No Smoking Status: Former Smoker Type Used: Cigarettes Former Smoker, Quit: Sep 28, 2012 2nd Hand Smoke Exposure: No Recent Foreign Travel: No Contact w/Someone Who Travel: No Recent Infectious Disease Expo: No Recent Hopitalizations: No Physical Abuse: No Sexual Abuse: No Mistreated: No Fear: No Immunizations Up To Date Tetanus Booster (TDap): Unknown PED Vaccines UTD: No Date of Pneumonia Vaccine: Sep 15, 2013 Seasonal Allergies Seasonal Allergies: No Past Medical History Surgeries: No Respiratory: Yes Pneumonia Currently Using CPAP: No Currently Using BIPAP: No Cardiac: Yes (CARDIOMYOPATHY DX 2017) Cardiomyopathy Neurological: No Reproductive Disorders: No Sexually Transmitted Disease: No HIV/AIDS: No Genitourinary: No Gastrointestinal: Yes (GASTROPARESIS) Musculoskeletal: No Endocrine: Yes (DX AGE 11, [place] 2001; MULTIPLE ADMITS FOR DKA) Diabetes, Insulin dep Cancer: No Did You Recieve Any Treatments: No Psychosocial: No Integumentary: Yes (WOUNDS TO LOWER LEGS-- REQUIRED WOUND CARE CLINIC TREATMENT) Blood Disorders: No Adverse Reaction/Blood Tranf: No Family Medical History Cancer Physical Exam Vital Signs Vital Signs - First Documented 11/18/19 23:21 Temp 37.4 Pulse 110 Resp 18 B/P (MAP) 114/84 (94) Pulse Ox 99 O2 Delivery Room Air Capillary Refill : Less Than 3 Seconds Height, Weight, BMI Height: 5'11.00" Weight: 126lbs. 0.0oz. 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 Norm as Tested Skin: Normal Color, Warm/Dry Progress/Results/Core Measures Suspected Sepsis Recent Fever Within 48 Hours: No Infection Criteria Present: None New/Unexplained Altered Menta: No Sepsis Screen: No Definite Risk SIRS Temperature: Pulse: 110 Respiratory Rate: 18 Laboratory Tests 11/18/19 23:30: White Blood Count 14.2H 11/19/19 01:35: White Blood Count 11.4H Blood Pressure 114 /84 Mean: 94 Laboratory Tests 11/18/19 23:30: Creatinine 1.08, Platelet Count 258, Total Bilirubin 0.9 11/19/19 01:35: Creatinine 0.75, Platelet Count 213 Results/Orders Lab Results Laboratory Tests Test 11/18/19 23:30 11/19/19 01:15 11/19/19 01:35 11/19/19 03:05 Range/Units White Blood Count 14.2 H 11.4 H 4.3-11.0 10^3/uL Red Blood Count 5.08 4.53 4.35-5.85 10^6/uL Hemoglobin 14.9 13.1 L 13.3-17.7 G/DL Hematocrit 43 39 L 40-54 % Mean Corpuscular Volume 85 86 80-99 FL Mean Corpuscular Hemoglobin 29 29 25-34 PG Mean Corpuscular Hemoglobin Concent 34 34 32-36 G/DL Red Cell Distribution Width 13.8 13.8 10.0-14.5 % Platelet Count 258 213 130-400 10^3/uL Mean Platelet Volume 9.0 9.3 7.4-10.4 FL Neutrophils (%) (Auto) 88 H 90 H 42-75 % Lymphocytes (%) (Auto) 6 L 5 L 12-44 % Monocytes (%) (Auto) 5 5 0-12 % Eosinophils (%) (Auto) 1 0 0-10 % Basophils (%) (Auto) 0 0 0-10 % Neutrophils # (Auto) 12.5 H 10.2 H 1.8-7.8 X 10^3 Lymphocytes # (Auto) 0.9 L 0.6 L 1.0-4.0 X 10^3 Monocytes # (Auto) 0.7 0.6 0.0-1.0 X 10^3 Eosinophils # (Auto) 0.1 0.0 0.0-0.3 10^3/uL Basophils # (Auto) 0.0 0.0 0.0-0.1 10^3/uL Neutrophils % (Manual) 89 % Lymphocytes % (Manual) 7 % Monocytes % (Manual) 3 % Metamyelocytes % 1 % Blood Morphology Comment NORMAL Sodium Level 134 L 139 135-145 MMOL/L Potassium Level 4.3 4.2 3.6-5.0 MMOL/L Chloride Level 103 112 H 98-107 MMOL/L Carbon Dioxide Level 13 L 14 L 21-32 MMOL/L Anion Gap 18 H 13 5-14 MMOL/L Blood Urea Nitrogen 17 13 7-18 MG/DL Creatinine 1.08 0.75 0.60-1.30 MG/DL Estimat Glomerular Filtration Rate > 60 > 60 BUN/Creatinine Ratio 16 17 Glucose Level 405 *H 148 H 70-105 MG/DL Glucometer 346 H 127 H 137 H 70-110 MG/DL Calcium Level 9.2 8.3 L 8.5-10.1 MG/DL Corrected Calcium 9.0 8.5-10.1 MG/DL Magnesium Level 1.6 1.5 L 1.6-2.4 MG/DL Total Bilirubin 0.9 0.1-1.0 MG/DL Aspartate Amino Transf (AST/SGOT) 50 H 5-34 U/L Alanine Aminotransferase (ALT/SGPT) 78 H 0-55 U/L Alkaline Phosphatase 118 40-136 U/L Total Protein 7.3 6.4-8.2 GM/DL Albumin 4.2 3.2-4.5 GM/DL Lipase 34 8-78 U/L Phosphorus Level 2.0 L 2.3-4.7 MG/DL Beta-Hydroxybutyrate (Chem panel) 0.50 H 0.00-0.27 MMOL/L Micro Results Microbiology 11/19/19 Influenza Types A,B Antigen ([facility]) - Final, Complete My Orders Orders - ANATOLY SHAFER MD Cbc With Automated Diff (11/18/19 23:19) Comprehensive Metabolic Panel (11/18/19 23:19) Magnesium (11/18/19 23:19) Ua Culture If Indicated (11/18/19 23:19) Ed Iv/Invasive Line Start (11/18/19 23:19) Ns Iv 1000 Ml (Sodium Chloride 0.9%) (11/18/19 23:19) Ondansetron Injection (Zofran Injectio (11/18/19 23:30) Manual Differential (11/18/19 23:30) Insulin (Regular) Human (Humulin R (Per (11/19/19 00:15) Ns Iv 1000 Ml (Sodium Chloride 0.9%) (11/19/19 00:06) Lipase (11/19/19 00:06) Chest Pa/Lat (2 View) (11/19/19 00:06) Influenza A And B Antigens (11/19/19 00:25) Medications Given in ED Current Medications Medications Dose Ordered Sig/Luis Route Start Time Stop Time Status Last Admin Dose Admin Insulin Human Regular 5 unit ONCE ONCE SC 11/19/19 00:15 11/19/19 00:16 DC 11/19/19 00:16 5 UNIT Ondansetron HCl 8 mg ONCE ONCE IVP 11/18/19 23:30 11/18/19 23:31 DC 11/18/19 23:31 8 MG Sodium Chloride 1,000 ml @ 0 mls/hr Q0M ONCE IV 11/18/19 23:19 11/18/19 23:21 DC 11/18/19 23:30 1,000 MLS/HR Vital Signs/I&O 11/18/19 11/19/19 11/19/19 23:21 01:00 01:09 Temp 37.4 37.4 37.4 Pulse 110 110 Resp 18 18 B/P (MAP) 114/84 (94) 125/77 (94) Pulse Ox 99 99 O2 Delivery Room Air Room Air Capillary Refill : Less Than 3 Seconds Blood Pressure Mean: 94 Point of Care Testing Finger Stick Blood Glucose: 346 Blood Glucose Action Taken: DR AND RN NOTIFIED Progress Note : Time: 00:50 Progress Note Zofran was given for nausea and vomiting. Patient was found to have mild DKA. 2 L of IV normal saline has been ordered along with 5 units of insulin. An influenza screen was negative. Chest x-ray was clear. Patient will be admitted for treatment of DKA. Diagnostic Imaging Diagonstic Imaging: Xray Plain Films/CT/US/NM/MRI: chest Comments Chest x-ray viewed by me. Report not yet available. No acute abnormalities appreciated. Departure Communication (Admissions) Time/Spoke to Admitting Phy: 00:25 Dr. Stoddard Impression Primary Impression: DKA (diabetic ketoacidoses) Qualified Codes: E10.10 - Type 1 diabetes mellitus with ketoacidosis without coma Additional Impression: Nausea vomiting and diarrhea Disposition: ADMITTED INPATIENT Condition: Improved Admissions Decision to Admit Reason: Admit from ER (General) Decision to Admit/Date: Nov 19, 2019 Time/Decision to Admit Time: 00:05 Departure-Patient Inst. Referrals: HILARIO FISHMAN DO (PCP) Primary Care Physician EMIL TORRES (Family) Primary Care Physician ANATOLY SHAFER MD Nov 19, 2019 00:34
--- NOTE | 2019-11-19 01:00 | NUR ---
CHEMO WEISS admitted to room CU9-1, with an admitting diagnosis of DKA, N/V/D , on 11/19/19 from ED via STRETCHER, accompanied by HOSPITAL STAFF. CHEMO WEISS introduced to surroundings, call light, bed controls, phone, TV, temperature control, lights, meal times, smoking policy, visitor policy, side rail policy, bathrooms and showers. Patient Rights given to patient in the handbook.CHEMO WEISS verbalizes understanding that [facility] is not responsible for the loss or damage to any personal effects or valuables that are kept in the patients posession during their hospitalization. CHEMO WEISS verbalizes understanding of Interdisciplinary Patient Education. Patient and/or family were informed about the Rapid Response Team and its purpose.
[2019-11-19] MEDS ORDERED: D5W IV SOLUTION (EXCEL) 0 ML IV ONE (01:08)
[2019-11-19] MEDS ORDERED: NORMAL SALINE 250 ML ONE (01:09)
[2019-11-19] MEDS ORDERED: D5 1/2 NS 1000 ML IV SOLUTION 1,000 ML IV ONE (01:18)
[2019-11-19] MEDS ORDERED: POTASSIUM CL 10MEQ/50ML IVPB 100 ML IV ONE (01:18)
[2019-11-19 01:47] LABS: BASOPHILS % (AUTO) 0 % (0-10); EOSINOPHILS % (AUTO) 0 % (0-10); HEMATOCRIT 39 % (40-54); HEMOGLOBIN 13.1 G/DL (13.3-17.7); LYMPHOCYTES # (AUTO) 0.6 X 10^3 (1.0-4.0); LYMPHOCYTES % (AUTO) 5 % (12-44); MEAN CORPUSCULAR HEMOGLOBIN 29 PG (25-34); MEAN CORPUSCULAR HGB CONC 34 G/DL (32-36); MEAN CORPUSCULAR VOLUME 86 FL (80-99); MEAN PLATELET VOLUME 9.3 FL (7.4-10.4); MONOCYTES # (AUTO) 0.6 X 10^3 (0.0-1.0); MONOCYTES % (AUTO) 5 % (0-12); NEUTROPHILS # (AUTO) 10.2 X 10^3 (1.8-7.8); NEUTROPHILS % (AUTO) 90 % (42-75); PLATELET COUNT 213 10^3/uL (130-400); RED CELL DISTRIBUTION WIDTH 13.8 % (10.0-14.5); WHITE BLOOD COUNT 11.4 10^3/uL (4.3-11.0)
[2019-11-19] MEDS: POTASSIUM CL 10MEQ/50ML IVPB 50 ML IV SCH ×3 (02:00→05:58)
[2019-11-19] MEDS: D5 1/2 NS 1000 ML IV SOLUTION 1,000 ML IV SCH ×2 (02:00→05:57)
[2019-11-19 02:04] LABS: BUN/CREATININE RATIO 17; CALCIUM 8.3 MG/DL (8.5-10.1); CARBON DIOXIDE 14 MMOL/L (21-32); CHLORIDE 112 MMOL/L (98-107); CREATININE SERUM 0.75 MG/DL (0.60-1.30); GFR ESTIMATED > 60; GLUCOSE 148 MG/DL (70-105); MAGNESIUM 1.5 MG/DL (1.6-2.4); POTASSIUM 4.2 MMOL/L (3.6-5.0); SODIUM 139 MMOL/L (135-145)
[2019-11-19] MEDS ORDERED: ONDANSETRON 4 MG/2 ML (SDV) Z0FRAN IV PRN (02:15)
[2019-11-19] MEDS ORDERED: inSUlin REGULAR TPN/DRIP ONLY 250 UNITS in NORMAL SALINE 250 ML IV SCH (02:15)
[2019-11-19] MEDS: 1/2 NS IV SOLUTION 1,000 ML IV SCH ×2 (02:29→07:37)
[2019-11-19] MEDS ORDERED: MAGNESIUM 1 GM/100 ML IVPB 200 ML IV ONE (03:36)
[2019-11-19] MEDS: MAGNESIUM 1 GM/100 ML IVPB 100 ML IV SCH ×2 (03:58→05:08)
[2019-11-19 05:49] LABS: BUN/CREATININE RATIO 12; CALCIUM 7.8 MG/DL (8.5-10.1); CARBON DIOXIDE 19 MMOL/L (21-32); CHLORIDE 112 MMOL/L (98-107); CREATININE SERUM 0.65 MG/DL (0.60-1.30); GFR ESTIMATED > 60; GLUCOSE 136 MG/DL (70-105); POTASSIUM 4.4 MMOL/L (3.6-5.0); SODIUM 136 MMOL/L (135-145)
[2019-11-19] MEDS ORDERED: POTASSIUM CL 10MEQ/50ML IVPB 50 ML IV SCH (06:00)
[2019-11-19] MEDS ORDERED: MAGNESIUM 1 GM/100 ML IVPB 100 ML IV SCH (06:00)
[2019-11-19] MEDS ORDERED: KCL 20 MEQ TAB (K-DUR) PO SCH (06:00)
[2019-11-19] MEDS: FAMOTIDINE 20MG/2ML IV (PEPCID) IV SCH ×2 (07:47→21:11)
--- NOTE | 2019-11-19 08:34 | Diagnostic Imaging Report ---
EXAMINATION: CHEST (PA AND LATERAL) CLINICAL INDICATION: 29-year-old male, cough. COMPARISON: September 28, 2019. FINDINGS: Heart size and mediastinal contours are unchanged. There is no identified pneumothorax. There is no pleural effusion. There is no identified focal airspace consolidation. IMPRESSION: No identified acute cardiopulmonary abnormality. Dictated by: Dictated on workstation # [id number]
[2019-11-19] MEDS ORDERED: inSUlin ASPART (NovoLOG) 1 UNIT/0.01 ML (CHARGE PER UNIT) SC SCH (11:00)
[2019-11-19] MEDS: inSUlin ASPART (NovoLOG) 1 UNIT/0.01 ML (CHARGE PER UNIT) SC SCH ×2 (11:10→16:16)
[2019-11-19] MEDS ORDERED: INSU100V16 SQ (11:17)
--- NOTE | 2019-11-19 11:18 | NUR ---
PATIENT STATES HE USES NOVOLOG AND LEVEMIR INSULIN. HE GETS THEM FROM [facility]. [facility] FILLED: 11-01-19 NOVOLOG 1 VIAL - 25 UNITS TID (HE STATES HE USES 2 UNITS PER CARB WITH MEALS. HE DOES NOT HAVE A RANGE OF INSULIN HE TYPICALLY USES, HE STATES HE EATS TWICE DAILY USUALLY) THEY HAVE A SCRIPT ON HOLD FROM 10-02-19 FOR LEVEMIR 17 UNITS HS. THIS IS THE DOSE HE TOLD ME HE TAKES HOWEVER I AM UNSURE WHEN HE FILLED IT LAST. [facility] DID NOT HAVE ANYTHING SIGNED OUT TO HIM THROUGH PALS. I LEFT IT ON THE MED REC HE REPORTED TAKING IT. HE STATES HE DOES NOT TAKE ANYTHING OTC OR ANY OTHER ORAL MEDICATIONS.
[2019-11-19] MEDS ORDERED: DEXTROSE 50% 50 ML (IMS) SYR ONE (12:28)
[2019-11-19] MEDS ORDERED: DEXTROSE 50% 50 ML (IMS) SYR IV ONE (12:35)
[2019-11-19] MEDS ORDERED: DEXTROSE 10% IV SOLUTION 1,000 ML IV SCH (13:45)
[2019-11-19 14:06] LABS: BUN/CREATININE RATIO 8; CARBON DIOXIDE 23 MMOL/L (21-32); CHLORIDE 109 MMOL/L (98-107); CREATININE SERUM 0.63 MG/DL (0.60-1.30); POTASSIUM 3.8 MMOL/L (3.6-5.0); SODIUM 137 MMOL/L (135-145)
[2019-11-19 14:07] LABS: CALCIUM 8.1 MG/DL (8.5-10.1); GFR ESTIMATED > 60; GLUCOSE 89 MG/DL (70-105)
--- NOTE | 2019-11-19 15:33 | History & Physical ---
MAYDA NELSON,MED STUDENT 11/19/19 1533: HPI History of Present Illness: Maurice Nelson is a 29 year old male who presented to the ER 01/17/2020 complaining of nausea, vomiting, abdominal pain and diarrhea that started that afternoon. He is a type 1 diabetic. He was found to be in DKA, with a glucose of 405, anion gap of 18, and elevated beta-hydroxybutyrate. He was subsequently admitted to the ICU. He denies feeling fever or sick, having any sick contacts or running out of insulin before coming to the ER, but does state he has had a runny/stuffy nose. Source: patient, other (ED records) Exam Limitations: no limitations Date seen by provider: Nov 19, 2019 Time Seen by Provider: 11:40 Attending Physician Deanne Blanco MD PCP Kamala Alonzo DO Consult Date of Admission Nov 19, 2019 at 00:29 Home Medications Home Medications Reviewed patient Home Medication Reconciliation performed by pharmacy medication reconciliations health physics technician and/or nursing. Patients Allergies have been reviewed. Allergies Coded Allergies: Penicillins (Verified Allergy, Unknown, 05/23/06) [id number]-[id number] Hx Patient Social History Alcohol Use: Denies Use Recreational Drug Use: No Smoking Status: Former Smoker Type Used: Cigarettes 2nd Hand Smoke Exposure: No Recent Foreign Travel: No Contact w/other who traveled: No Recent Hopitalizations: No Recent Infectious Disease Expo: No Immunizations Up To Date Tetanus Booster (TDap): Unknown Date of Pneumonia Vaccine: Sep 15, 2017 Date of Influenza Vaccine: Sep 15, 2019 Past Medical History PMHx: Type I Diabetes Anxiety Diabetic Retinopathy Thyrotoxicosis Pneumonia Cardiomyopathy Gastroparesis Family Medical History Significant Family History: Heart Disease (father), Cancer, Hypertension (father) Family History: Cardiovascular disease 19 FATHER Hypertension 19 FATHER Review of Systems ([facility]) Constitutional: No chills, No fever EENTM: nose congestion Respiratory: No cough, No short of breath Cardiovascular: chest pain (left sided, worse with movement and wretching) Gastrointestinal: abdominal pain, diarrhea, nausea, vomiting Genitourinary: no symptoms reported Musculoskeletal: muscle pain (left chest wall) Skin: no symptoms reported Psychiatric/Neurological: No Symptoms Reported Reviewed Test Results Reviewed Test Results Radiology Date of Exam:11/19/19 CHEST PA/LAT (2 VIEW) EXAMINATION: CHEST (PA AND LATERAL) CLINICAL INDICATION: 29-year-old male, cough. COMPARISON: September 28, 2019. FINDINGS: Heart size and mediastinal contours are unchanged. There is no identified pneumothorax. There is no pleural effusion. There is no identified focal airspace consolidation. IMPRESSION: No identified acute cardiopulmonary abnormality. Dictated by: Dictated on workstation # [id number] Physical Exam-([facility]) Physical Exam Vital Signs VS - Last 72 Hours, by Label 11/18/19 11/19/19 11/19/19 11/19/19 23:21 01:00 01:05 01:09 Temp 37.4 37.4 37.4 Pulse 110 123 110 Resp 18 20 18 B/P (MAP) 114/84 (94) 130/76 (94) 125/77 (94) Pulse Ox 99 99 99 O2 Delivery Room Air Room Air Room Air 11/19/19 11/19/19 11/19/19 11/19/19 01:10 01:15 01:30 01:45 Pulse 133 126 130 135 Resp 17 19 17 B/P (MAP) 138/73 (94) 136/83 (100) 108/65 (79) Pulse Ox 99 100 100 O2 Delivery Room Air Room Air Room Air 11/19/19 11/19/19 11/19/19 11/19/19 02:00 03:00 04:00 04:00 Pulse 128 117 123 Resp 17 20 27 B/P (MAP) 109/58 (75) 110/68 (82) 116/80 (92) Pulse Ox 99 99 95 98 O2 Delivery Room Air Room Air Room Air Room Air 11/19/19 11/19/19 11/19/19 11/19/19 04:00 05:00 06:00 07:00 Pulse 104 109 108 Resp 25 31 20 B/P (MAP) 109/61 (77) 117/79 (92) 122/84 (97) Pulse Ox 98 99 99 98 O2 Delivery Room Air Room Air Room Air Room Air 11/19/19 11/19/19 11/19/19 11/19/19 07:00 07:00 08:00 08:00 Temp 37.6 Pulse 109 109 Resp 13 B/P (MAP) 118/75 (89) Pulse Ox 98 99 O2 Delivery Room Air Room Air 11/19/19 11/19/19 11/19/1920 09:00 10:00 11:00 12:00 Pulse 99 102 95 96 Resp 23 15 29 18 B/P (MAP) 122/84 (97) 135/87 (103) 123/82 (96) 132/96 (108) Pulse Ox 100 100 99 99 O2 Delivery Room Air Room Air Room Air Room Air 11/19/19 11/19/19 11/19/19 11/19/19 12:00 12:30 13:00 13:00 Temp 37.4 Pulse 109 112 Resp 23 B/P (MAP) 127/83 (98) Pulse Ox 98 100 O2 Delivery Room Air Room Air 11/19/19 14:00 Pulse 100 Resp 23 B/P (MAP) 124/86 (99) Pulse Ox 100 O2 Delivery Room Air Capillary Refill : Less Than 3 Seconds General Appearance: mild distress, thin Eyes: Bilateral Eye EOMI HEENT: No scleral icterus (R), No scleral icterus (L) Neck: full range of motion Respiratory: lungs clear, no respiratory distress, no accessory muscle use, other (left side of chest tender to palpation) Cardiovascular: no murmur, tachycardia Gastrointestinal: tenderness Neurologic/Psychiatric: no motor/sensory deficits, alert, normal mood/affect Skin: pallor Assessment/Plan Assessment/Plan Assessment & Plan Assessment: -Diabetic Ketoacidosis -Hypophosphatemia -Hypomagnesemia Plan: -Continue monitoring blood sugars, insulin and fluid replacement -Potassium replacement if potassium falls below 3.3 -Replace phosphorus and magnesium Clinical Quality Measures DVT/VTE Risk/Contraindication: Risk Factor Score Per Nursin RFS Level Per Nursing on Admit: 1=Low/No VTE PPX DEANNE BLANCO MD 11/19/19 2896: Home Medications Allergies Coded Allergies: Penicillins (Verified Allergy, Unknown, 05/23/06) [id number] Hx Family Medical History Family History: Cardiovascular disease 19 FATHER Hypertension 19 FATHER Assessment/Plan Assessment/Plan Admission Status: Inpatient Order (span 2 midnights) Reason for Inpatient Admission: DKA requiring insulin drip Assessment & Plan DKA- s/p insulin drip, able to come off this am with closed gap and improved CO2, resume home insulin, transfer to floor if glucose okay after lunch. N/V/D- suspect viral infection, supportive care DVT ppx- low risk, ambulate Supervisory-Addendum Brief Verification & Attestation Participated in pt care: history, MDM, physical Personally performed: exam, history Care discussed with: Medical Student Procedures: n/a Verification and Attestation of Medical Student E/M Service A medical student performed this service in my presence. I reviewed and verified all information documented by the medical student and made modifications to such information, when appropriate. I personally performed the physical exam and medical decision making. Deanne Blanco, Nov 19, 2019,16:55 MAYDA NELSON,MED STUDENT Nov 19, 2019 15:33 DEANNE BLANCO MD Nov 19, 2019 16:56
--- NOTE | 2019-11-19 20:27 | NUR ---
PTS BLOOD SUGAR AT [address] BLANCO NOTIFIED AND ASKED ABOUT HS DOSE OF LEVEMIR, WHICH IS FOR 17U. SHE ORDERED TO ONLY ADMIN 5 U OF HS LEVEMIR.
[2019-11-20] VITALS: BP 132/87
[2019-11-20 04:00] VITALS: BP 122/82
[2019-11-20 06:28] LABS: BASOPHILS % (AUTO) 0 % (0-10); EOSINOPHILS # (AUTO) 0.1 10^3/uL (0.0-0.3); EOSINOPHILS % (AUTO) 1 % (0-10); HEMATOCRIT 36 % (40-54); HEMOGLOBIN 11.9 G/DL (13.3-17.7); LYMPHOCYTES # (AUTO) 1.3 X 10^3 (1.0-4.0); LYMPHOCYTES % (AUTO) 16 % (12-44); MEAN CORPUSCULAR HEMOGLOBIN 29 PG (25-34); MEAN CORPUSCULAR HGB CONC 33 G/DL (32-36); MEAN CORPUSCULAR VOLUME 86 FL (80-99); MEAN PLATELET VOLUME 9.5 FL (7.4-10.4); MONOCYTES # (AUTO) 0.9 X 10^3 (0.0-1.0); MONOCYTES % (AUTO) 10 % (0-12); NEUTROPHILS % (AUTO) 73 % (42-75); PLATELET COUNT 199 10^3/uL (130-400); RED CELL DISTRIBUTION WIDTH 13.4 % (10.0-14.5); WHITE BLOOD COUNT 8.2 10^3/uL (4.3-11.0)
[2019-11-20 06:54] LABS: BUN/CREATININE RATIO 7; CALCIUM 8.4 MG/DL (8.5-10.1); CARBON DIOXIDE 24 MMOL/L (21-32); CHLORIDE 106 MMOL/L (98-107); CREATININE SERUM 0.56 MG/DL (0.60-1.30); GFR ESTIMATED > 60; GLUCOSE 108 MG/DL (70-105); MAGNESIUM 1.9 MG/DL (1.6-2.4); SODIUM 137 MMOL/L (135-145)
[2019-11-20] MEDS: FAMOTIDINE 20MG/2ML IV (PEPCID) IV SCH (07:59)
[2019-11-20 08:00] VITALS: BP 129/83
--- NOTE | 2019-11-20 08:49 | Progress Note ---
Subjective Subjective/Events-last exam Patient seen and examined this morning. He states he is feeling much better this morning. He has not had anymore vomiting or diarrhea. He was able to eat breakfast this morning without any issues. Review of Systems General: No Chills, No Night Sweats Pulmonary: No Dyspnea, No Cough Cardiovascular: No: Chest Pain, Edema Gastrointestinal: No: Nausea, Vomiting, Diarrhea Focused Exam Time of Focused Exam: 08:23 Respiratory: Lungs Clear, No Accessory Muscle Use, No Respiratory Distress Cardiovascular: No Murmur, Tachycardia Peripheral Pulses: 2+ Radial Pulses (R), 2+ Radial Pulses (L) Skin: warm/dry, pallor Objective Exam Last Set of Vital Signs Vital Signs Date Time Temp Pulse Resp B/P (MAP) Pulse Ox O2 Delivery O2 Flow Rate FiO2 11/20/19 04:00 36.4 98 18 122/82 (95) 98 Room Air Capillary Refill : Less Than 3 Seconds I&O Intake and Output 11/20/19 00:00 Intake Total 6122 ml Output Total 2250 ml Balance 3872 ml Intake Oral 2095 ml IV Total 4027 ml Output Urine Total 2250 ml # Voids 4 # Bowel Movements 1 Daily Weight Change No Results/Procedures Lab Laboratory Tests 11/19/19 10:59: Glucometer 109 11/19/19 12:30: Glucometer 34*L 11/19/19 13:03: Glucometer 156H 11/19/19 13:40: Sodium Level 137, Potassium Level 3.8, Chloride Level 109H, Carbon Dioxide Level 23, Anion Gap 5, Blood Urea Nitrogen 5L, Creatinine 0.63, Estimat Glomerular Filtration Rate > 60, BUN/Creatinine Ratio 8, Glucose Level 89, Calcium Level 8.1L 11/19/19 15:58: Glucometer 63L 11/19/19 20:21: Glucometer 90 11/20/19 06:05: White Blood Count 8.2, Red Blood Count 4.13L, Hemoglobin 11.9L, Hematocrit 36L, Mean Corpuscular Volume 86, Mean Corpuscular Hemoglobin 29, Mean Corpuscular Hemoglobin Concent 33, Red Cell Distribution Width 13.4, Platelet Count 199, Mean Platelet Volume 9.5, Neutrophils (%) (Auto) 73, Lymphocytes (%) (Auto) 16, Monocytes (%) (Auto) 10, Eosinophils (%) (Auto) 1, Basophils (%) (Auto) 0, Neutrophils # (Auto) 6.0, Lymphocytes # (Auto) 1.3, Monocytes # (Auto) 0.9, Eosinophils # (Auto) 0.1, Basophils # (Auto) 0.0, Sodium Level 137, Potassium Level 4.0, Chloride Level 106, Carbon Dioxide Level 24, Anion Gap 7, Blood Urea Nitrogen 4L, Creatinine 0.56L, Estimat Glomerular Filtration Rate > 60, BUN/Creatinine Ratio 7, Glucose Level 108H, Calcium Level 8.4L, Phosphorus Level 3.0, Magnesium Level 1.9, Beta-Hydroxybutyrate (Chem panel) 0.19 Microbiology 11/19/19 MRSA Screen - Final, Complete MRSA not isolated Radiology Date of Exam:11/19/19 CHEST PA/LAT (2 VIEW) EXAMINATION: CHEST (PA AND LATERAL) CLINICAL INDICATION: 29-year-old male, cough. COMPARISON: September 28, 2019. FINDINGS: Heart size and mediastinal contours are unchanged. There is no identified pneumothorax. There is no pleural effusion. There is no identified focal airspace consolidation. IMPRESSION: No identified acute cardiopulmonary abnormality. Dictated by: Dictated on workstation # [id number] Assessment/Plan Assessment/Plan Assessment & Plan Assessment: -Diabetic Ketoacidosis Plan: -continue patient on home insulin and monitor blood sugars -encourage oral intake and ambulation Clinical Quality Measures DVT/VTE Risk/Contraindication: Risk Factor Score Per Nursin RFS Level Per Nursing on Admit: 1=Low/No VTE PPX MAYDA WEISS,MED STUDENT Nov 20, 2019 08:49
--- NOTE | 2019-11-20 10:28 | Discharge Summary ---
Discharge Summary Hospital Course Hospital Course Date of Admission: Nov 19, 2019 at 00:29 Admission Diagnosis : Family Physician/Provider: Reji Leiva Date of Discharge: 11/20/19 Discharge Diagnosis: Diabetic ketoacidosis Viral gastroenteritis Hospital Course: Pt admitted and started on insulin drip, had quick resolution of DKA, GI symptoms improved, tolerating diet and with normal blood sugar at d/c. Labs and Pending Lab Test: Laboratory Tests 11/19/19 10:59: Glucometer 109 11/19/19 12:30: Glucometer 34*L 11/19/19 13:03: Glucometer 156H 11/19/19 13:40: Sodium Level 137, Potassium Level 3.8, Chloride Level 109H, Carbon Dioxide Level 23, Anion Gap 5, Blood Urea Nitrogen 5L, Creatinine 0.63, Estimat Glomerular Filtration Rate > 60, BUN/Creatinine Ratio 8, Glucose Level 89, Calcium Level 8.1L 11/19/19 15:58: Glucometer 63L 11/19/19 20:21: Glucometer 90 11/20/19 06:05: White Blood Count 8.2, Red Blood Count 4.13L, Hemoglobin 11.9L, Hematocrit 36L, Mean Corpuscular Volume 86, Mean Corpuscular Hemoglobin 29, Mean Corpuscular Hemoglobin Concent 33, Red Cell Distribution Width 13.4, Platelet Count 199, Mean Platelet Volume 9.5, Neutrophils (%) (Auto) 73, Lymphocytes (%) (Auto) 16, Monocytes (%) (Auto) 10, Eosinophils (%) (Auto) 1, Basophils (%) (Auto) 0, Neutrophils # (Auto) 6.0, Lymphocytes # (Auto) 1.3, Monocytes # (Auto) 0.9, Eo sinophils # (Auto) 0.1, Basophils # (Auto) 0.0, Sodium Level 137, Potassium Level 4.0, Chloride Level 106, Carbon Dioxide Level 24, Anion Gap 7, Blood Urea Nitrogen 4L, Creatinine 0.56L, Estimat Glomerular Filtration Rate > 60, BUN/Creatinine Ratio 7, Glucose Level 108H, Calcium Level 8.4L, Phosphorus Level 3.0, Magnesium Level 1.9, Beta-Hydroxybutyrate (Chem panel) 0.19 Microbiology 11/19/19 MRSA Screen - Final, Complete MRSA not isolated Home Meds Active Reported Novolog (Insulin Aspart) 100 Unit/1 Ml Susp SQ AC USES 2 UNITS PER CARB WITH MEALS Levemir Flextouch (Insulin Detemir) 100 Unit/1 Ml Insuln.pen 17 Units SQ HS Assessment/Pt DC Instructions Follow up with Roni Leiva APRN on 11/25 at 12:00 pm. Discharge Diet: ADA Diet Activity as Tolerated: Yes Discharge Physical Examination Allergies: Coded Allergies: Penicillins (Verified Allergy, Unknown, 05/23/06) General Appearance: No Apparent Distress Respiratory: Lungs Clear, Normal Breath Sounds Cardiovascular: Regular Rate, Rhythm, No Edema, No Murmur Gastrointestinal: Normal Bowel Sounds, Non Tender, Soft Neurologic/Psychiatric: Alert, Normal Mood/Affect Copy Copies To 1: Roni Leiva APRN Clinical Quality Measures DVT/VTE Risk/Contraindication: Risk Factor Score Per Nursin RFS Level Per Nursing on Admit: 1=Low/No VTE PPX DEANNE BLANCO MD Nov 20, 2019 09:24
[2019-11-20 11:29] VITALS: BP 129/83
== END 2019-11-20 11:27 | disposition home or self-care (01) | DRG 638 ==
LOC: EDUNIT# 23:14 → ER 23:16 → ICU 11-19 00:29 → 4TH 11-19 17:47
PROVIDERS: ADMIT Family Medicine; ATTEND Family Medicine
DX: E10.10 Type 1 diabetes mellitus with ketoacidosis without coma (principal); A08.4 Viral intestinal infection, unspecified; E10.43 Type 1 diabetes mellitus with diabetic autonomic (poly)neuropathy; E10.319 Type 1 diabetes mellitus with unspecified diabetic retinopathy without macular edema; Z79.4 Long term (current) use of insulin; I42.9 Cardiomyopathy, unspecified; E83.39 Other disorders of phosphorus metabolism; E83.42 Hypomagnesemia; Z87.891 Personal history of nicotine dependence; Z87.01 Personal history of pneumonia (recurrent)
CPT/HCPCS: 36415; 71046; 80048; 80053; 82010; 82962; 83036; 83690; 83735; 84100; 85007; 85025; 85027; 87081; 87804

== ENCOUNTER 2019-11-27 20:03 | Observation (INO) | payer SELFPAY ==
[~2019-11-27] VITALS: Ht 180.3 cm; Wt 61.3 kg
[~2019-11-27 20:03] MED LIST changes: +INSU100V16 SQ
[2019-11-27] MEDS ORDERED: ONDANSETRON 4 MG/2 ML (SDV) Z0FRAN ONE (20:07)
[2019-11-27] MEDS ORDERED: ONDANSETRON 4 MG/2 ML (SDV) Z0FRAN IVP ONE (20:15)
[2019-11-27] MEDS ORDERED: NS IV 1000 ML 1,000 ML IV SCH ×2 (20:15→21:00)
[2019-11-27 20:22] LABS: BASOPHILS % (AUTO) 0 % (0-10); EOSINOPHILS % (AUTO) 0 % (0-10); HEMATOCRIT 41 % (40-54); LYMPHOCYTES # (AUTO) 1.3 X 10^3 (1.0-4.0); LYMPHOCYTES % (AUTO) 13 % (12-44); MEAN CORPUSCULAR HEMOGLOBIN 29 PG (25-34); MEAN CORPUSCULAR HGB CONC 34 G/DL (32-36); MEAN CORPUSCULAR VOLUME 86 FL (80-99); MEAN PLATELET VOLUME 8.7 FL (7.4-10.4); MONOCYTES # (AUTO) 0.2 X 10^3 (0.0-1.0); MONOCYTES % (AUTO) 2 % (0-12); NEUTROPHILS # (AUTO) 8.8 X 10^3 (1.8-7.8); NEUTROPHILS % (AUTO) 85 % (42-75); PLATELET COUNT 426 10^3/uL (130-400); RED CELL DISTRIBUTION WIDTH 13.5 % (10.0-14.5); WHITE BLOOD COUNT 10.4 10^3/uL (4.3-11.0)
[2019-11-27 20:46] LABS: ALANINE AMINOTRANSFERASE 58 U/L (0-55); ALBUMIN 4.4 GM/DL (3.2-4.5); ALKALINE PHOSPHATASE 115 U/L (40-136); BILIRUBIN,TOTAL 0.5 MG/DL (0.1-1.0); BUN/CREATININE RATIO 20; CARBON DIOXIDE 23 MMOL/L (21-32); CHLORIDE 104 MMOL/L (98-107); CREATININE SERUM 0.79 MG/DL (0.60-1.30); GFR ESTIMATED > 60; GLUCOSE 284 MG/DL (70-105); POTASSIUM 4.5 MMOL/L (3.6-5.0); SODIUM 139 MMOL/L (135-145); TOTAL PROTEIN 7.8 GM/DL (6.4-8.2)
[2019-11-27] MEDS ORDERED: inSUlin (REGULAR) HUMAN 1 UNIT/0.01 ML (CHARGE PER UNIT) IV ONE (21:00)
--- NOTE | 2019-11-27 21:02 | ED GU-Female ---
General Chief Complaint: Abdominal/GI Problems Stated Complaint: VOMITTING Nursing Triage Note: Pt amb to room #10 with c/o nausea, vomiting, diarrhea, et chills. Pt reports onset of symptoms to be 1430 on this day. During triage pt noted to be pale et diaphoretic. Pt reports to have been hospitalized on 11/19/19 d/t DKA. Nursing Sepsis Screen: No Definite Risk Source: patient Exam Limitations: no limitations History of Present Illness Date Seen by Provider: Nov 27, 2019 Time Seen by Provider: 20:20 Initial Comments to ER with nausea vomiting diarrhea chills. Type I diabetic. Timing/Duration: constant Severity/Quality: moderate Radiation: none Activities at Onset: none Prior Genitourinary Problems: none Associated Symptoms: nausea/vomiting Allergies and Home Medications Allergies Coded Allergies: Penicillins (Verified Allergy, Unknown, 05/23/06) Home Medications Insulin Aspart 100 Unit/1 Ml Susp, SQ AC, (Reported) USES 2 UNITS PER CARB WITH MEALS Insulin Detemir 100 Unit/1 Ml Insuln.pen, 17 UNITS SQ HS, (Reported) Patient Home Medication List Home Medication List Reviewed: Yes Review of Systems Review of Systems Constitutional: see HPI EENTM: see HPI Respiratory: no symptoms reported Cardiovascular: no symptoms reported Genitourinary: no symptoms reported Musculoskeletal: no symptoms reported Skin: no symptoms reported Psychiatric/Neurological: No Symptoms Reported Endocrine: No Symptoms Reported Hematologic/Lymphatic: No Symptoms Reported Past Ymprngh-Koiooo-Zzwxov Hx Patient Social History Alcohol Use: Denies Use Recreational Drug Use: No Smoking Status: Former Smoker Type Used: Cigarettes Former Smoker, Quit: Sep 28, 2012 2nd Hand Smoke Exposure: No Recent Foreign Travel: No Contact w/Someone Who Travel: No Recent Infectious Disease Expo: No Recent Hopitalizations: No Immunizations Up To Date Tetanus Booster (TDap): Unknown PED Vaccines UTD: No Date of Pneumonia Vaccine: Sep 15, 2017 Date of Influenza Vaccine: Sep 15, 2019 Seasonal Allergies Seasonal Allergies: No Past Medical History Surgeries: No Respiratory: Yes Pneumonia Currently Using CPAP: No Currently Using BIPAP: No Cardiac: Yes (CARDIOMYOPATHY DX 2017) Cardiomyopathy Neurological: No Reproductive Disorders: No Sexually Transmitted Disease: No HIV/AIDS: No Genitourinary: No Gastrointestinal: Yes (GASTROPARESIS) Musculoskeletal: No Endocrine: Yes (DX AGE 11, [place] 2001; MULTIPLE ADMITS FOR DKA) Diabetes, Insulin dep Are Your Blood Sugars Over 250: No Cancer: No Did You Recieve Any Treatments: No Psychosocial: No Integumentary: Yes (WOUNDS TO LOWER LEGS-- REQUIRED WOUND CARE CLINIC TREATMENT) Blood Disorders: No Adverse Reaction/Blood Tranf: No Family Medical History Cardiovascular disease 19 FATHER Hypertension 19 FATHER Heart Disease, Cancer, Hypertension Physical Exam Vital Signs Vital Signs - First Documented 11/27/19 20:06 Temp 36.7 Pulse 106 Resp 19 B/P (MAP) 167/79 (108) Pulse Ox 19 O2 Delivery Room Air Capillary Refill : Less Than 3 Seconds Height, Weight, BMI Height: 5'11.00" Weight: 126lbs. 0.0oz. 57.213323io; 18.00 BMI Method:Stated General Appearance: WD/WN, no apparent distress HEENT: PERRL/EOMI Neck: non-tender, full range of motion Respiratory: no respiratory distress, no accessory muscle use Gastrointestinal: normal bowel sounds, soft Neurologic/Psychiatric: alert, normal mood/affect, oriented x 3 Skin: normal color, warm/dry Progress/Results/Core Measures Suspected Sepsis Recent Fever Within 48 Hours: No Infection Criteria Present: Suspected New Infection New/Unexplained Altered Menta: No Sepsis Screen: No Definite Risk SIRS Temperature: Pulse: 106 Respiratory Rate: 19 Laboratory Tests 11/27/19 20:15: White Blood Count 10.4 Blood Pressure 167 /79 Mean: 108 Laboratory Tests 11/27/19 20:15: Creatinine 0.79, Platelet Count 426H, Total Bilirubin 0.5 Results/Orders Lab Results Laboratory Tests Test 11/27/19 20:15 11/27/19 20:22 11/27/19 21:06 11/27/19 21:20 Range/Units White Blood Count 10.4 4.3-11.0 10^3/uL Red Blood Count 4.84 4.35-5.85 10^6/uL Hemoglobin 14.0 13.3-17.7 G/DL Hematocrit 41 40-54 % Mean Corpuscular Volume 86 80-99 FL Mean Corpuscular Hemoglobin 29 25-34 PG Mean Corpuscular Hemoglobin Concent 34 32-36 G/DL Red Cell Distribution Width 13.5 10.0-14.5 % Platelet Count 426 H 130-400 10^3/uL Mean Platelet Volume 8.7 7.4-10.4 FL Neutrophils (%) (Auto) 85 H 42-75 % Lymphocytes (%) (Auto) 13 12-44 % Monocytes (%) (Auto) 2 0-12 % Eosinophils (%) (Auto) 0 0-10 % Basophils (%) (Auto) 0 0-10 % Neutrophils # (Auto) 8.8 H 1.8-7.8 X 10^3 Lymphocytes # (Auto) 1.3 1.0-4.0 X 10^3 Monocytes # (Auto) 0.2 0.0-1.0 X 10^3 Eosinophils # (Auto) 0.0 0.0-0.3 10^3/uL Basophils # (Auto) 0.0 0.0-0.1 10^3/uL Sodium Level 139 135-145 MMOL/L Potassium Level 4.5 3.6-5.0 MMOL/L Chloride Level 104 98-107 MMOL/L Carbon Dioxide Level 23 21-32 MMOL/L Anion Gap 12 5-14 MMOL/L Blood Urea Nitrogen 16 7-18 MG/DL Creatinine 0.79 0.60-1.30 MG/DL Estimat Glomerular Filtration Rate > 60 BUN/Creatinine Ratio 20 Glucose Level 284 H 70-105 MG/DL Calcium Level 10.0 8.5-10.1 MG/DL Corrected Calcium 9.7 8.5-10.1 MG/DL Total Bilirubin 0.5 0.1-1.0 MG/DL Aspartate Amino Transf (AST/SGOT) 34 5-34 U/L Alanine Aminotransferase (ALT/SGPT) 58 H 0-55 U/L Alkaline Phosphatase 115 40-136 U/L Total Protein 7.8 6.4-8.2 GM/DL Albumin 4.4 3.2-4.5 GM/DL Beta-Hydroxybutyrate (Chem panel) 1.36 H 0.00-0.27 MMOL/L Glucometer 270 H 256 H 70-110 MG/DL Urine Color YELLOW Urine Clarity CLEAR Urine pH 6.0 5-9 Urine Specific Atkinson 1.020 1.016-1.022 Urine Protein NEGATIVE NEGATIVE Urine Glucose (UA) 3+ H NEGATIVE Urine Ketones 1+ H NEGATIVE Urine Nitrite NEGATIVE NEGATIVE Urine Bilirubin NEGATIVE NEGATIVE Urine Urobilinogen 0.2 < = 1.0 MG/DL Urine Leukocyte Esterase NEGATIVE NEGATIVE Urine RBC (Auto) 2+ H NEGATIVE Urine RBC 5-10 H /HPF Urine WBC 0-2 /HPF Urine Squamous Epithelial Cells NONE /HPF Urine Crystals NONE /LPF Urine Bacteria NEGATIVE /HPF Urine Casts NONE /LPF Urine Mucus SMALL H /LPF Urine Culture Indicated NO Micro Results Microbiology 11/27/19 Influenza Types A,B Antigen (KAMILLA) - Final, Complete My Orders Orders - NINOSKA LANE APRN Accucheck Stat ONCE (11/27/19 20:09) Cbc With Automated Diff (11/27/19 20:09) Comprehensive Metabolic Panel (11/27/19 20:09) Ua Culture If Indicated (11/27/19 20:09) Beta Hydroxybutyrate (11/27/19 20:09) Ed Iv/Invasive Line Start (11/27/19 20:09) Ondansetron Injection (Zofran Injectio (11/27/19 20:15) Ns Iv 1000 Ml (Sodium Chloride 0.9%) (11/27/19 20:15) Ondansetron Injection (Zofran Injectio (11/27/19 20:07) Ns Iv 1000 Ml (Sodium Chloride 0.9%) (11/27/19 21:00) Insulin (Regular) Human (Humulin R (Per (11/27/19 21:00) Accucheck Stat ONCE (11/27/19 20:49) Promethazine Injection (Phenergan Injec (11/27/19 21:15) Influenza A And B Antigens (11/27/19 21:08) Medications Given in ED Current Medications Medications Dose Ordered Sig/Luis Route Start Time Stop Time Status Last Admin Dose Admin Insulin Human Regular 4 unit ONCE ONCE IV 11/27/19 21:00 11/27/19 21:01 DC 11/27/19 21:00 4 UNIT Ondansetron HCl 8 mg ONCE ONCE IVP 11/27/19 20:15 11/27/19 20:16 DC 11/27/19 20:23 8 MG Promethazine HCl 25 mg ONCE ONCE IVP 11/27/19 21:15 11/27/19 21:16 DC 11/27/19 21:09 25 MG Vital Signs/I&O 11/27/19 20:06 Temp 36.7 Pulse 106 Resp 19 B/P (MAP) 167/79 (108) Pulse Ox 19 O2 Delivery Room Air Capillary Refill : Less Than 3 Seconds Blood Pressure Mean: 108 Point of Care Testing Finger Stick Blood Glucose: 270 Blood Glucose Action Taken: Provider notified. Departure Communication (Admissions) 2157-on paper his workup is unimpressive. Clinically however he looks sick. He is pale, tachycardic at 112 despite 2 L of IV fluids, still reporting some nausea despite Phenergan and Zofran. I'll order a GI cocktail and Pepcid. Because of his clinical appearance a admit for observation status. He is agreeable to this. I considered sending him home but based on his clinical appearance decided to speak with Dr. Knight, she most graciously agrees to accept this patient for observation status. 2208-spoke with health tank shop supervisor, ICU is unavailable, cardiac stick is unavailable, we do have medical surgical floor beds available. He is not on an insulin drip so I'll use medical floor. Impression Primary Impression: Nausea vomiting and diarrhea Additional Impression: IDDM (insulin dependent diabetes mellitus) Disposition: ADMITTED INPATIENT Condition: Stable Admissions Decision to Admit Reason: Admit from ER (General) Decision to Admit/Date: Nov 27, 2019 Time/Decision to Admit Time: 21:59 Departure-Patient Inst. Referrals: HILARIO FISHMAN DO (PCP) Primary Care Physician EMIL TORRES (Family) Primary Care Physician NINOSKA LANE APRN Nov 27, 2019 21:02
[2019-11-27] MEDS ORDERED: PROMETHAZINE INJ 25 MG/ML (PHENERGAN) AMP IVP ONE (21:15)
[2019-11-27 21:31] LABS: BILIRUBIN,URINE NEGATIVE (NEGATIVE); CLARITY,URINE CLEAR; COLOR,URINE YELLOW; GLUCOSE, URINE (UA) 3+ (NEGATIVE); KETONES,URINE 1+ (NEGATIVE); LEUKOCYTE ESTERASE ,URINE NEGATIVE (NEGATIVE); NITRITE,URINE NEGATIVE (NEGATIVE); PROTEIN,URINE NEGATIVE (NEGATIVE)
[2019-11-27 21:45] LABS: BACTERIA,URINE NEGATIVE /HPF; WBC,URINE 0-2 /HPF
[2019-11-27] MEDS ORDERED: LORazepam INJ 2 MG/ML (ATIVAN) VIAL ONE (22:13)
--- NOTE | 2019-11-27 23:30 | NUR ---
CHEMO WEISS admitted to room 415-1, with an admitting diagnosis of TYPE 1 DIABETES, INTRACTABLE NAUSEA AND VOMITTING, on 11/27/19 from [place] via [facility], accompanied by STAFF.CHEMO WEISS introduced to surroundings, call light, bed controls, phone, TV, temperature control, lights, meal times, smoking policy, visitor policy, side rail policy, bathrooms and showers. Patient Rights given to patient in the handbook. CHEMO WEISS verbalizes understanding that [facility] is not responsible for the loss or damage to any personal effects or valuables that are kept in the patients posession during their hospitalization.
[2019-11-27 23:38] VITALS: BP 157/60
[2019-11-27] MEDS ORDERED: LACTATED RINGERS 1,000 ML IV ONE (23:55)
--- NOTE | 2019-11-28 00:50 | NUR ---
UPON ASSESSMENT PT SHAKY, AND PALE. WHEN ASKING ADMISSION QUESTIONS PT KEEPS FALLING ASLEEP. BLOOD SUGAR OBTAINED, RESULT: 288. THIS NURSE NOTIFIED DR JOSÉ. NEW RESULTS RECEIVED, SEE ORDER HISTORY. STATES IF PT WORSENS, MAY NEED ICU
[2019-11-28] MEDS ORDERED: PROMETHAZINE INJ 25 MG/ML (PHENERGAN) AMP IV PRN (01:00)
[2019-11-28] MEDS ORDERED: ONDANSETRON 4 MG/2 ML (SDV) Z0FRAN IV PRN (01:00)
[2019-11-28] MEDS ORDERED: ENOXAPARIN 30 MG/0.3 ML (LOVENOX) SYR SC SCH (01:00)
[2019-11-28] MEDS ORDERED: diphenhydrAMINE 50 MG/ML INJ (BENADRYL) IV PRN (01:00)
[2019-11-28] MEDS ORDERED: fentaNYL INJECTION 100 MCG/2 ML AMP IV PRN (01:00)
[2019-11-28 04:42] VITALS: BP 116/62
[2019-11-28] MEDS: inSUlin ASPART (NovoLOG) 1 UNIT/0.01 ML (CHARGE PER UNIT) SC SCH ×3 (05:59→15:48)
[2019-11-28 06:20] LABS: BASOPHILS % (AUTO) 0 % (0-10); EOSINOPHILS % (AUTO) 0 % (0-10); HEMATOCRIT 34 % (40-54); HEMOGLOBIN 11.2 G/DL (13.3-17.7); LYMPHOCYTES # (AUTO) 2.4 X 10^3 (1.0-4.0); LYMPHOCYTES % (AUTO) 18 % (12-44); MEAN CORPUSCULAR HEMOGLOBIN 28 PG (25-34); MEAN CORPUSCULAR HGB CONC 33 G/DL (32-36); MEAN CORPUSCULAR VOLUME 86 FL (80-99); MEAN PLATELET VOLUME 8.9 FL (7.4-10.4); MONOCYTES # (AUTO) 0.6 X 10^3 (0.0-1.0); MONOCYTES % (AUTO) 4 % (0-12); NEUTROPHILS # (AUTO) 10.3 X 10^3 (1.8-7.8); NEUTROPHILS % (AUTO) 77 % (42-75); PLATELET COUNT 386 10^3/uL (130-400); RED CELL DISTRIBUTION WIDTH 13.3 % (10.0-14.5); WHITE BLOOD COUNT 13.3 10^3/uL (4.3-11.0)
[2019-11-28] MEDS: LACTATED RINGERS 1,000 ML IV SCH ×2 (06:53)
[2019-11-28 07:12] LABS: ALANINE AMINOTRANSFERASE 40 U/L (0-55); ALBUMIN 3.5 GM/DL (3.2-4.5); ALKALINE PHOSPHATASE 97 U/L (40-136); BILIRUBIN,TOTAL 0.3 MG/DL (0.1-1.0); BUN/CREATININE RATIO 21; CALCIUM 8.7 MG/DL (8.5-10.1); CARBON DIOXIDE 22 MMOL/L (21-32); CHLORIDE 107 MMOL/L (98-107); CREATININE SERUM 0.66 MG/DL (0.60-1.30); GFR ESTIMATED > 60; GLUCOSE 147 MG/DL (70-105); POTASSIUM 3.6 MMOL/L (3.6-5.0); SODIUM 139 MMOL/L (135-145)
[2019-11-28 08:00] VITALS: BP 115/74
[2019-11-28] MEDS ORDERED: PANTOPRAZOLE 40 MG (PROTONIX) VIAL IV SCH (09:00)
[2019-11-28] MEDS ORDERED: INSU100V5 SQ (10:21)
[2019-11-28] MEDS ORDERED: INSU100V16 SQ (10:21)
--- NOTE | 2019-11-28 10:22 | NUR ---
[facility] FILLED: 11-21-19 LEVEMIR VIALS 17 UNITS HS #2 VIALS (STATES HE USES 10-17 UNITS DEPENDING ON SUGAR) 120 NOVOLOG VIALS 25 UNITS TID W/MEALS #2 VIALS (STATES HE USES 10-12 UNITS WITH MEALS, USES 2 UNITS PER CARB) HE STATES HE DOES NOT TAKE ANY ORAL MEDICATION OR ANYTHING OTC.
--- NOTE | 2019-11-28 11:09 | Short Stay Summary-Hospitalist ---
History of Present Illness HPI/Chief Complaint CC: Severe nausea and vomiting type 1 diabetic HPI: This is a 29yoWM history of type 1 diabetes who presented to the ER with severe nausea and vomiting who was in need of observation status for IV fluids. He was not acidotic and we did go ahead and initiate insulin regimen of which he was feeling very well and was able to eat and drink at time of DC. Source: patient Exam Limitations: no limitations Date Seen 11/28/19 Time Seen by a Provider: 09:30 Attending Physician Lore Knight DO PCP Kamala Alonzo DO Referring Physician Date of Admission Nov 27, 2019 at 22:00 Home Medications & Allergies Home Medications Reviewed patient Home Medication Reconciliation performed by pharmacy medication reconciliations results technician and/or nursing. Patients Allergies have been reviewed. Allergies Allergies Coded Allergies Penicillins (Verified Allergy, Unknown, 05/23/06) Past Gscjwgh-Jnlaot-Tspzoa Hx Past Med/Social Hx: Reviewed Nursing Past Med/Soc Hx, Reviewed and Corrections made Patient Social History Marrital Status: single Employed/Student: unemployed Alcohol Use: Denies Use Recreational Drug Use: No Smoking Status: Former Smoker Former Smoker, Quit: Sep 28, 2012 Type Used: Cigarettes 2nd Hand Smoke Exposure: No Recent Foreign Travel: No Contact w/other who traveled: No Recent Hopitalizations: No Recent Infectious Disease Expo: No Immunizations Up To Date Tetanus Booster (TDap): Unknown Pediatric: No Date of Pneumonia Vaccine: Sep 15, 2017 Date of Influenza Vaccine: Sep 15, 2019 Seasonal Allergies Seasonal Allergies: No Past Medical History Currently Using CPAP: No Currently Using BIPAP: No Cardiac: Cardiomyopathy Reproductive: No Sexually Transmitted Disease: No HIV/AIDS: No Endocrine: Diabetes, Insulin dep Are Your Blood Sugars Over 250: No Did You Recieve Any Treatments: No History of Blood Disorders: No Adverse Reaction to Blood Ryan: No Family History Cardiovascular disease 19 FATHER Hypertension 19 FATHER Heart Disease, Cancer, Hypertension Review of Systems Constitutional: malaise, weakness Gastrointestinal: nausea, vomiting Physical Exam Physical Exam Vital Signs Vital Signs - First Documented 11/27/19 20:06 Temp 36.7 Pulse 106 Resp 19 B/P (MAP) 167/79 (108) Pulse Ox 19 O2 Delivery Room Air Capillary Refill : Less Than 3 Seconds Height, Weight, BMI Height: 5'11.00" Weight: 126lbs. 0.0oz. 57.090530ij; 17.31 BMI Method:Stated General Appearance: No Apparent Distress, WD/WN, Anxious, Chronically ill, Thin Eyes: Bilateral Eye Normal Inspection, Bilateral Eye PERRL HEENT: PERRL/EOMI, Normal ENT Inspection, Pharynx Normal Neck: Full Range of Motion, Normal Inspection, Non Tender, Supple, Carotid Bruit Respiratory: Chest Non Tender, Lungs Clear, Normal Breath Sounds, No Accessory Muscle Use, No Respiratory Distress Cardiovascular: Regular Rate, Rhythm, No Edema, No Gallop, No JVD, No Murmur, Normal Peripheral Pulses Gastrointestinal: Normal Bowel Sounds, No Organomegaly, No Pulsatile Mass, Non Tender, Soft Back: Normal Inspection, No CVA Tenderness, No Vertebral Tenderness Extremity: Normal Capillary Refill, Normal Inspection, Normal Range of Motion, Non Tender, No Calf Tenderness, No Pedal Edema Neurologic/Psychiatric: Alert, Oriented x3, No Motor/Sensory Deficits, Normal Mood/Affect Skin: Normal Color, Warm/Dry Lymphatic: No Adenopathy Results Results/Procedures Labs Laboratory Tests 11/27/19 20:15 11/28/19 05:44 Patient resulted labs reviewed. Short Stay Diagnosis Discharge Diagnosis-Short Stay Admission Diagnosis Assessment: Dehydration N/V Type 1 DM Chronic debility Final Discharge Diagnosis Assessment: Dehydration N/V Type 1 DM Chronic debility Conclusion Plan Plan: IVF DC home PO intake adequate Diagnosis/Problems Diagnosis/Problems (1) Intractable nausea and vomiting (2) Type 1 diabetes Clinical Quality Measures DVT/VTE Risk/Contraindication: RFS Level Per Nursing on Admit: 1=Low/No VTE PPX LORE KNIGHT DO Nov 28, 2019 11:09
[2019-11-28 12:00] VITALS: BP 132/84
--- NOTE | 2019-11-28 13:37 | NUR ---
RD ASSESSMENT PMHx: cardiomyopathy; Type 1 DM PT INTERACTION: Pt was awake and pleasant during nutrition assessment. Pt states current appetite is "not bad" and has been for some time. Note PO intake of 50% x1meal, per chart review. Pt states following a diabetic diet at home, and has no difficulty chewing/swallowing food. Pt states recent episodes of nausea/vomiting occurring x1d. Pt states episodes of diarrhea during that same timeframe, with his last BM on 11/28. Note pt not currently on bowel regimen per chart review. Pt states no recent wt changes. Note recent 10# wt gain x1w, per chart review. Pt states current DM control is pretty good. Note pt was recently admitted on 11/19/2019 for DKA, per chart review. ABNORMAL NUTRITION-RELATED LAB VALUES LOW: Pro 6.0 HIGH: glu 147 Est. kcal needs: 2253-7248 kcal | 25-30 kcal/kg Est. Pro needs: 61-74 g Pro | 1.0-1.2 g Pro/kg PES STATEMENT: Inadequate oral intake (NI-2.1) related to loss of appetite | nausea | vomiting | diarrhea as evidenced by pt interview | PO intake 25% x1meal INTERVENTION: Continue with current diet order of CHO 60g/m 1snack diet. Pt may benefit from nutrition supplementation if PO intake declines. Will continue to follow and reassess as pt needs and status change. MONITOR/EVALUATE: PO Intake; Plan of Care; Hydration Status; Weight Status; Lab Values Nohelia Allen, MS, RD, LD
[2019-11-28 15:52] VITALS: BP 132/84
== END 2019-11-28 15:52 | disposition home or self-care (01) ==
LOC: EDUNIT# 20:03 → ER 20:04 → 4TH 22:00
PROVIDERS: ADMIT Internal Medicine; ATTEND Internal Medicine
DX: R11.2 Nausea with vomiting, unspecified (principal); E10.10 Type 1 diabetes mellitus with ketoacidosis without coma; E86.0 Dehydration; R53.81 Other malaise; I42.9 Cardiomyopathy, unspecified; Z88.0 Allergy status to penicillin; Z87.891 Personal history of nicotine dependence; Z82.49 Family history of ischemic heart disease and other diseases of the circulatory system; Z80.9 Family history of malignant neoplasm, unspecified
CPT/HCPCS: 36415; 80053; 81000; 82010; 82962; 85025; 87804; G0378

== ENCOUNTER 2020-03-02 20:52 | Observation (INO) | payer SELFPAY ==
[~2020-03-02] VITALS: Ht 180 cm; Wt 58.2 kg
[~2020-03-02 20:52] MED LIST changes: +INSU100V5 SQ
[2020-03-02] MEDS ORDERED: NS IV 1000 ML 1,000 ML IV SCH (21:07)
[2020-03-02 21:12] LABS: BASOPHILS % (AUTO) 0 % (0-10); EOSINOPHILS # (AUTO) 0.2 10^3/uL (0.0-0.3); EOSINOPHILS % (AUTO) 2 % (0-10); HEMATOCRIT 34 % (40-54); HEMOGLOBIN 11.5 G/DL (13.3-17.7); LYMPHOCYTES # (AUTO) 2.4 X 10^3 (1.0-4.0); LYMPHOCYTES % (AUTO) 26 % (12-44); MEAN CORPUSCULAR HEMOGLOBIN 29 PG (25-34); MEAN CORPUSCULAR HGB CONC 34 G/DL (32-36); MEAN CORPUSCULAR VOLUME 84 FL (80-99); MEAN PLATELET VOLUME 8.9 FL (7.4-10.4); MONOCYTES # (AUTO) 0.6 X 10^3 (0.0-1.0); MONOCYTES % (AUTO) 7 % (0-12); NEUTROPHILS # (AUTO) 5.8 X 10^3 (1.8-7.8); NEUTROPHILS % (AUTO) 65 % (42-75); PLATELET COUNT 309 10^3/uL (130-400); RED CELL DISTRIBUTION WIDTH 13.8 % (10.0-14.5)
[2020-03-02 21:21] LABS: ALBUMIN 3.6 GM/DL (3.2-4.5); CHLORIDE 104 MMOL/L (98-107); POTASSIUM 2.8 MMOL/L (3.6-5.0); SODIUM 138 MMOL/L (135-145)
[2020-03-02 21:22] LABS: CALCIUM 8.5 MG/DL (8.5-10.1)
[2020-03-02 21:24] LABS: GLUCOSE 141 MG/DL (70-105)
[2020-03-02 21:25] LABS: BILIRUBIN,TOTAL 0.3 MG/DL (0.1-1.0); CARBON DIOXIDE 25 MMOL/L (21-32)
--- NOTE | 2020-03-02 21:26 | ED General ---
General Chief Complaint: Glucose Problems Stated Complaint: BS PROBLEMS History of Present Illness Date Seen by Provider: March 02, 2020 Time Seen by Provider: 21:05 Initial Comments 29-year-old male brought by EMS after having hypoglycemia and possible seizure activity at home, he is a type I diabetic. He was not post-ictal when EMS Arrived, he was alert and oriented, able to take Oral Glucose, Accucheck read as low, they started IV D10. NEUROLOGICAL PHYSIOTHERAPIST it was 196 and IV stopped. He reports 3 days ago he was having persistent vomiting and his blood sugars have been very labile for the last few days. No history of seizure disorder. He reports eating dinner this evening, vomiting, and then passing out. He had no incontinence. His mother reports a seizure, to EMS, that problem lasted approximately 3 minutes. He denies nausea at this time. He takes 2 units reg insulin per 1 gm carb at each meal and 10-15 Units of Levemir at HS. Timing/Duration: 2-3 Days Severity: Mild Associated Systoms: No Cough, No Fever/Chills; Loss of Appetite, Nausea/Vomiting, Seizure (Possible), Syncope, Weakness Allergies and Home Medications Allergies Coded Allergies: Penicillins (Verified Allergy, Unknown, 05/23/06) Home Medications Insulin Aspart 100 Unit/1 Ml Susp, 10-12 UNIT SQ TIDAC, (Reported) USES 2 UNITS PER EVERY CARB Insulin Determir 1,000 Units/10 Ml Soln, 10-17 UNITS SQ HS, (Reported) Patient Home Medication List Home Medication List Reviewed: Yes Review of Systems Review of Systems Constitutional: no symptoms reported, see HPI Respiratory: no symptoms reported, see HPI; No cough Cardiovascular: no symptoms reported, see HPI; No chest pain Gastrointestinal: see HPI, nausea, vomiting Genitourinary: no symptoms reported, see HPI Musculoskeletal: no symptoms reported, see HPI Skin: no symptoms reported, see HPI Psychiatric/Neurological: See HPI, Seizure All Other Systems Reviewed Negative Unless Noted: Yes Past Chxaqhd-Cmgbab-Tdhmye Hx Past Med/Social Hx: Reviewed Nursing Past Med/Soc Hx Patient Social History Alcohol Use: Denies Use Recreational Drug Use: No Smoking Status: Former Smoker Type Used: Cigarettes Former Smoker, Quit: Sep 28, 2012 2nd Hand Smoke Exposure: No Recent Hopitalizations: No Immunizations Up To Date Tetanus Booster (TDap): Unknown PED Vaccines UTD: No Date of Pneumonia Vaccine: Sep 15, 2017 Date of Influenza Vaccine: Sep 15, 2019 Seasonal Allergies Seasonal Allergies: No Past Medical History Surgeries: No Respiratory: Yes Pneumonia Currently Using CPAP: No Currently Using BIPAP: No Cardiac: Yes (CARDIOMYOPATHY DX 2016) Cardiomyopathy Neurological: No Reproductive Disorders: No Sexually Transmitted Disease: No HIV/AIDS: No Genitourinary: No Gastrointestinal: Yes (GASTROPARESIS) Musculoskeletal: No Endocrine: Yes (DX AGE 11, [place] 2001; MULTIPLE ADMITS FOR DKA) Diabetes, Insulin dep Cancer: No Did You Recieve Any Treatments: No Psychosocial: No Integumentary: Yes (WOUNDS TO LOWER LEGS-- REQUIRED WOUND CARE CLINIC TREATMENT) Blood Disorders: No Adverse Reaction/Blood Tranf: No Family Medical History Cardiovascular disease 19 FATHER Hypertension 19 FATHER Heart Disease, Cancer, Hypertension Physical Exam Vital Signs Capillary Refill : Height, Weight, BMI Height: 5'11.00" Weight: 126lbs. 0.0oz. 57.056052uu; 17.31 BMI Method:Stated General Appearance: No Apparent Distress, Cachetic Eyes: Bilateral Eye Normal Inspection, Bilateral Eye PERRL, Bilateral Eye EOMI HEENT: PERRL/EOMI, TMs Normal, Normal ENT Inspection, Pharynx Normal Neck: Full Range of Motion, Normal Inspection, Non Tender, Supple Respiratory: Chest Non Tender, Lungs Clear, Normal Breath Sounds, No Accessory Muscle Use, No Respiratory Distress Cardiovascular: Regular Rate, Rhythm, No Edema, No Murmur, Normal Peripheral Pulses Gastrointestinal: Normal Bowel Sounds, Non Tender, Soft; No Guarding, No Rebound Back: Normal Inspection, No CVA Tenderness, No Vertebral Tenderness Extremity: Normal Capillary Refill, Normal Inspection, Normal Range of Motion, No Pedal Edema Neurologic/Psychiatric: Alert, Oriented x3, No Motor/Sensory Deficits, Normal Mood/Affect Skin: Warm/Dry, Pallor Progress/Results/Core Measures Suspected Sepsis SIRS Temperature: Pulse: Respiratory Rate: Laboratory Tests 03/02/20 21:03: White Blood Count 9.0 Blood Pressure / Mean: Laboratory Tests 03/02/20 21:03: Creatinine 0.78, Platelet Count 309, Total Bilirubin 0.3 Results/Orders Lab Results Laboratory Tests Test 03/02/20 21:02 03/02/20 21:03 03/02/20 21:26 03/02/20 21:45 Range/Units Glucometer 348 H 76 70-110 MG/DL White Blood Count 9.0 4.3-11.0 10^3/uL Red Blood Count 4.04 L 4.35-5.85 10^6/uL Hemoglobin 11.5 L 13.3-17.7 G/DL Hematocrit 34 L 40-54 % Mean Corpuscular Volume 84 80-99 FL Mean Corpuscular Hemoglobin 29 25-34 PG Mean Corpuscular Hemoglobin Concent 34 32-36 G/DL Red Cell Distribution Width 13.8 10.0-14.5 % Platelet Count 309 130-400 10^3/uL Mean Platelet Volume 8.9 7.4-10.4 FL Neutrophils (%) (Auto) 65 42-75 % Lymphocytes (%) (Auto) 26 12-44 % Monocytes (%) (Auto) 7 0-12 % Eosinophils (%) (Auto) 2 0-10 % Basophils (%) (Auto) 0 0-10 % Neutrophils # (Auto) 5.8 1.8-7.8 X 10^3 Lymphocytes # (Auto) 2.4 1.0-4.0 X 10^3 Monocytes # (Auto) 0.6 0.0-1.0 X 10^3 Eosinophils # (Auto) 0.2 0.0-0.3 10^3/uL Basophils # (Auto) 0.0 0.0-0.1 10^3/uL Sodium Level 138 135-145 MMOL/L Potassium Level 2.8 L 3.6-5.0 MMOL/L Chloride Level 104 98-107 MMOL/L Carbon Dioxide Level 25 21-32 MMOL/L Anion Gap 9 5-14 MMOL/L Blood Urea Nitrogen 10 7-18 MG/DL Creatinine 0.78 0.60-1.30 MG/DL Estimat Glomerular Filtration Rate > 60 BUN/Creatinine Ratio 13 Glucose Level 141 H 70-105 MG/DL Calcium Level 8.5 8.5-10.1 MG/DL Corrected Calcium 8.8 8.5-10.1 MG/DL Total Bilirubin 0.3 0.1-1.0 MG/DL Aspartate Amino Transf (AST/SGOT) 24 5-34 U/L Alanine Aminotransferase (ALT/SGPT) 34 0-55 U/L Alkaline Phosphatase 74 40-136 U/L Total Protein 6.0 L 6.4-8.2 GM/DL Albumin 3.6 3.2-4.5 GM/DL My Orders Orders - JOSE DE JESUS STILL Cbc With Automated Diff (03/02/20 21:02) Comprehensive Metabolic Panel (03/02/20 21:02) Ua Culture If Indicated (03/02/20 21:02) Ed Iv/Invasive Line Start (03/02/20 21:07) Ns Iv 1000 Ml (Sodium Chloride 0.9%) (03/02/20 21:07) Potassium Cl 10meq/50ml Ivpb (Kcl 10 Meq (03/02/20 21:30) Hemoglobin A1c (03/02/20 21:39) Accucheck Stat ONCE (03/02/20 21:40) Vital Signs/I&O Capillary Refill : Point of Care Testing Finger Stick Blood Glucose: 348 Progress Note : Time: 21:05 Progress Note Patient seen and evaluated, will obtain labs and monitor patient, we'll give normal saline at this time and watch Accu-Chek regularly. 2129 K+ 2.8, will give K+ 20 mEq per IV. Patient denies pain or n/v. 2139 patient reports taking his insulin before dinner, then vomited, his accucheck and glucose have been labile. Down to 76, will resume D10 at 50 ml/hour. [address] Knight, agrees with plan to admit patient to ICU. 2204 Accucheck 84. Alert and Oriented. Will continue to monitor. Admission orders completed. Departure Impression Primary Impression: Type 1 diabetes mellitus Qualified Codes: E10.9 - Type 1 diabetes mellitus without complications Additional Impressions: Hypoglycemia Syncopal episodes Qualified Codes: R55 - Syncope and collapse Hypokalemia Disposition: ADMITTED INPATIENT Condition: Stable Admissions Decision to Admit Reason: Admit from ER (General) Decision to Admit/Date: March 02, 2020 Time/Decision to Admit Time: 21:30 Departure-Patient Inst. Referrals: HILARIO FISHMAN DO (PCP) Primary Care Physician EMIL TORRES (Family) Primary Care Physician Copy Copies To 1: HILARIO FISHMAN AMY ARNP March 02, 2020 21:26
[2020-03-02 21:27] LABS: ALKALINE PHOSPHATASE 74 U/L (40-136); CREATININE SERUM 0.78 MG/DL (0.60-1.30); GFR ESTIMATED > 60
[2020-03-02 21:28] LABS: BUN/CREATININE RATIO 13
[2020-03-02 21:30] LABS: ALANINE AMINOTRANSFERASE 34 U/L (0-55)
[2020-03-02] MEDS: POTASSIUM CL 10MEQ/50ML IVPB 50 ML IV SCH (21:42)
[2020-03-02 21:47] LABS: BILIRUBIN,URINE NEGATIVE (NEGATIVE); CLARITY,URINE CLEAR; COLOR,URINE YELLOW; GLUCOSE, URINE (UA) 2+ (NEGATIVE); KETONES,URINE NEGATIVE (NEGATIVE); LEUKOCYTE ESTERASE ,URINE NEGATIVE (NEGATIVE); NITRITE,URINE NEGATIVE (NEGATIVE); PROTEIN,URINE TRACE (NEGATIVE)
[2020-03-02 22:06] LABS: RBC,URINE 25-50 /HPF; WBC,URINE 0-2 /HPF
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
[2020-03-02 22:09] LABS: AMORPHOUS SEDIMENT,UR FEW AMOR URATES /LPF; BACTERIA,URINE TRACE /HPF
[2020-03-02 22:10] LABS: HYALINE CASTS, URINE 0-2 /LPF
--- NOTE | 2020-03-02 22:26 | NUR ---
EMS D-10 RESTARTED PER JOSE DE JESUS STILL D/T A BLOOD GLUCOSE READING OF 51, ORDERED AT 100ML/HR
[2020-03-02 22:45] VITALS: BP 126/81
[2020-03-02 23:00] VITALS: BP 120/93
[2020-03-02 23:15] VITALS: BP 121/92
[2020-03-02 23:30] VITALS: BP 118/85
[2020-03-02 23:45] LABS: CHLORIDE 105 MMOL/L (98-107); POTASSIUM 3.6 MMOL/L (3.6-5.0); SODIUM 139 MMOL/L (135-145)
[2020-03-02 23:46] LABS: CALCIUM 8.4 MG/DL (8.5-10.1)
[2020-03-02 23:47] LABS: GLUCOSE 97 MG/DL (70-105)
[2020-03-02 23:48] LABS: CARBON DIOXIDE 26 MMOL/L (21-32)
[2020-03-02 23:51] LABS: CREATININE SERUM 0.67 MG/DL (0.60-1.30); GFR ESTIMATED > 60
[2020-03-02 23:52] LABS: BUN/CREATININE RATIO 12
[2020-03-03] VITALS (9 sets, daily range): BP systolic 99–139; BP diastolic 70–107
[2020-03-03] MEDS ORDERED: D5 1/2 NS 1000 ML IV SOLUTION 1,000 ML IV SCH (00:30)
[2020-03-03] MEDS ORDERED: ONDANSETRON 4 MG/2 ML (SDV) Z0FRAN IV PRN (00:30)
[2020-03-03] MEDS ORDERED: ACETAMINOPHEN 325 MG TABLET PO PRN (00:30)
[2020-03-03] MEDS ORDERED: D5 1/2 NS W/KCL 20 MEQ/L 1,000 ML IV SCH (00:30)
[2020-03-03 01:20] LABS: CHLORIDE 104 MMOL/L (98-107); POTASSIUM 3.7 MMOL/L (3.6-5.0); SODIUM 138 MMOL/L (135-145)
[2020-03-03 01:21] LABS: CALCIUM 8.3 MG/DL (8.5-10.1)
[2020-03-03 01:22] LABS: GLUCOSE 175 MG/DL (70-105)
[2020-03-03 01:23] LABS: CARBON DIOXIDE 25 MMOL/L (21-32)
[2020-03-03 01:26] LABS: CREATININE SERUM 0.69 MG/DL (0.60-1.30); GFR ESTIMATED > 60
[2020-03-03 01:27] LABS: BUN/CREATININE RATIO 12
[2020-03-03 03:40] LABS: BASOPHILS % (AUTO) 0 % (0-10); EOSINOPHILS % (AUTO) 0 % (0-10); HEMATOCRIT 33 % (40-54); HEMOGLOBIN 11.2 G/DL (13.3-17.7); LYMPHOCYTES % (AUTO) 19 % (12-44); MEAN CORPUSCULAR HEMOGLOBIN 29 PG (25-34); MEAN CORPUSCULAR HGB CONC 34 G/DL (32-36); MEAN CORPUSCULAR VOLUME 85 FL (80-99); MEAN PLATELET VOLUME 9.4 FL (7.4-10.4); MONOCYTES # (AUTO) 0.9 X 10^3 (0.0-1.0); MONOCYTES % (AUTO) 8 % (0-12); NEUTROPHILS % (AUTO) 73 % (42-75); PLATELET COUNT 249 10^3/uL (130-400); RED CELL DISTRIBUTION WIDTH 13.6 % (10.0-14.5)
[2020-03-03 04:01] LABS: ALANINE AMINOTRANSFERASE 30 U/L (0-55); ALBUMIN 3.2 GM/DL (3.2-4.5); ALKALINE PHOSPHATASE 74 U/L (40-136); BILIRUBIN,TOTAL 0.3 MG/DL (0.1-1.0); BUN/CREATININE RATIO 10; CALCIUM 8.1 MG/DL (8.5-10.1); CARBON DIOXIDE 23 MMOL/L (21-32); CHLORIDE 104 MMOL/L (98-107); CREATININE SERUM 0.69 MG/DL (0.60-1.30); GFR ESTIMATED > 60; GLUCOSE 283 MG/DL (70-105); MAGNESIUM 1.9 MG/DL (1.6-2.4); PHOSPHORUS 3.6 MG/DL (2.3-4.7); POTASSIUM 4.1 MMOL/L (3.6-5.0); SODIUM 137 MMOL/L (135-145); TOTAL PROTEIN 5.5 GM/DL (6.4-8.2)
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
[2020-03-03] MEDS ORDERED: inSUlin ASPART (NovoLOG) 1 UNIT/0.01 ML (CHARGE PER UNIT) ONE (05:45)
[2020-03-03 05:50] LABS: AMYLASE 73 U/L (25-125); LIPASE 47 U/L (8-78)
[2020-03-03] MEDS: inSUlin ASPART (NovoLOG) 1 UNIT/0.01 ML (CHARGE PER UNIT) SC SCH ×4 (05:54→14:24)
[2020-03-03] MEDS ORDERED: MAGNESIUM 1 GM/100 ML IVPB 100 ML IV SCH (06:00)
[2020-03-03] MEDS ORDERED: KCL 20 MEQ TAB (K-DUR) PO SCH (06:00)
[2020-03-03] MEDS ORDERED: POTASSIUM CL 10MEQ/50ML IVPB 50 ML IV SCH (06:00)
[2020-03-03 06:13] LABS: AMPHETAMINE SCREEN, URINE NEGATIVE (NEGATIVE); BARBITURATE SCREEN URINE NEGATIVE (NEGATIVE); BENZODIAZEPINES SCREEN URINE NEGATIVE (NEGATIVE); CANNABINOID SCREEN, URINE POSITIVE (NEGATIVE); COCAINE SCREEN URINE NEGATIVE (NEGATIVE); METHADONE STAT NEGATIVE (NEGATIVE); METHAMPHETAMINE SCREEN URINE S NEGATIVE (NEGATIVE); OPIATE SCREEN URINE NEGATIVE (NEGATIVE); OXYCODONE STAT NEGATIVE (NEGATIVE); PROPOXYPHENE STAT NEGATIVE (NEGATIVE); TRICYCLIC ANTIDEPRESSANTS SCRE NEGATIVE (NEGATIVE)
[2020-03-03] MEDS ORDERED: inSUlin ASPART (NovoLOG) 1 UNIT/0.01 ML (CHARGE PER UNIT) SC SCH (07:00)
--- NOTE | 2020-03-03 07:06 | History & Physical-Hospitalist ---
History of Present Illness HPI/Chief Complaint CC: Hypoglycemia with Hypokalemia HPI: This is a 29yoWM clinic Pt of [facility] with type one DM with frequent DKA episodes who present with a syncopal event to the ER found to have severe refractory hypoglycemia requiring ICU admission and close monitoring. Pt was placed on D5 drip and has since stabilized and ready for likely discharge this afternoon. I did confer with Dr. Vyas who agreed with the plan along with the patient. He was able to eat a good breakfast. Source: patient Exam Limitations: no limitations Date Seen 03/03/20 Time Seen by a Provider: 09:30 Attending Physician Lore José DO PCP Kamala Alonzo DO Referring Physician Date of Admission March 02, 2020 at 21:30 Home Medications & Allergies Home Medications Reviewed patient Home Medication Reconciliation performed by pharmacy medication reconciliations warehouse technician and/or nursing. Patients Allergies have been reviewed. Allergies Allergies Coded Allergies Penicillins (Verified Allergy, Unknown, 05/23/06) Past Lkeclpk-Azrajf-Kabwil Hx Past Med/Social Hx: Reviewed Nursing Past Med/Soc Hx, Reviewed and Corrections made Patient Social History Marrital Status: cohabiting Employed/Student: unemployed Alcohol Use: Denies Use Recreational Drug Use: No Smoking Status: Former Smoker Former Smoker, Quit: Sep 28, 2012 Type Used: Cigarettes 2nd Hand Smoke Exposure: No Recent Foreign Travel: No Contact w/other who traveled: No Recent Hopitalizations: No Recent Infectious Disease Expo: No Immunizations Up To Date Tetanus Booster (TDap): Unknown Pediatric: No Date of Pneumonia Vaccine: Sep 15, 2017 Date of Influenza Vaccine: Sep 15, 2019 Seasonal Allergies Seasonal Allergies: No Past Medical History Currently Using CPAP: No Currently Using BIPAP: No Cardiac: Cardiomyopathy Reproductive: No Sexually Transmitted Disease: No HIV/AIDS: No Endocrine: Diabetes, Insulin dep Did You Recieve Any Treatments: No History of Blood Disorders: No Adverse Reaction to Blood Ryan: No Family History Cardiovascular disease 19 FATHER Hypertension 19 FATHER Heart Disease, Cancer, Hypertension Review of Systems Constitutional: see HPI, malaise, weakness Physical Exam Physical Exam Vital Signs Vital Signs - First Documented 03/02/20 20:59 Temp 36.4 Pulse 104 Resp 18 B/P (MAP) 118/71 (87) Pulse Ox 99 O2 Delivery Room Air Capillary Refill : Less Than 3 Seconds Height, Weight, BMI Height: 5'11.00" Weight: 126lbs. 0.0oz. 57.504078jp; 17.00 BMI Method:Stated General Appearance: No Apparent Distress, Anxious, Chronically ill, Thin Eyes: Right Eye Normal Inspection, Right Eye PERRL HEENT: PERRL/EOMI, Normal ENT Inspection, Pharynx Normal, Moist Mucous Membranes Neck: Full Range of Motion, Normal Inspection, Non Tender Respiratory: Chest Non Tender, Lungs Clear, Normal Breath Sounds, No Accessory Muscle Use, No Respiratory Distress Cardiovascular: Regular Rate, Rhythm, No Edema, No Gallop, No JVD, No Murmur, Normal Peripheral Pulses Gastrointestinal: Normal Bowel Sounds, No Organomegaly, No Pulsatile Mass, Non Tender, Soft Back: Normal Inspection, No CVA Tenderness, No Vertebral Tenderness Extremity: Normal Capillary Refill, Normal Inspection, Normal Range of Motion, Non Tender, No Calf Tenderness, No Pedal Edema Neurologic/Psychiatric: Alert, Oriented x3, No Motor/Sensory Deficits, Normal Mood/Affect Skin: Normal Color, Warm/Dry Lymphatic: No Adenopathy Results Results/Procedures Labs Laboratory Tests 03/02/20 21:03 03/02/20 23:28 03/03/20 01:01 03/03/20 02:47 03/03/20 07:08 03/03/20 15:23 Patient resulted labs reviewed. Assessment/Plan Admission Diagnosis Assessment: Hypoglycemia refractory requiring glucose drip Hypokalemia DM Type 1 Plan: DC home this afternoon Left AMA instead Admission Status: Observation Diagnosis/Problems Diagnosis/Problems (1) Hypoglycemia Status: Acute (2) Hypokalemia Onset Date: 11/17/2014 Status: Resolved Clinical Quality Measures DVT/VTE Risk/Contraindication: RFS Level Per Nursing on Admit: 0=No Risk/No VTE PPX LORE JOSÉ DO March 03, 2020 07:05
[2020-03-03 07:33] LABS: BUN/CREATININE RATIO 9; CALCIUM 8.8 MG/DL (8.5-10.1); CARBON DIOXIDE 26 MMOL/L (21-32); CHLORIDE 103 MMOL/L (98-107); CREATININE SERUM 0.76 MG/DL (0.60-1.30); GFR ESTIMATED > 60; GLUCOSE 218 MG/DL (70-105); POTASSIUM 3.5 MMOL/L (3.6-5.0); SODIUM 138 MMOL/L (135-145)
--- NOTE | 2020-03-03 07:34 | Diagnostic Imaging Report ---
EXAMINATION: Chest radiograph, portable AP view. DATE: 03/03/2020 4:59 AM hours. INDICATION: 29-year-old male, hypokalemia. COMPARISON: November 19, 2019. FINDINGS: Heart size and mediastinal contours are unremarkable. There is no identified pneumothorax. There is no large pleural effusion. There is no identified focal airspace consolidation. There is sclerosis at the level of the left fifth and sixth ribs most likely relating to subacute to chronic left rib fractures. There is no identified significantly displaced acute appearing rib fracture. IMPRESSION: 1. Subacute to chronic left fifth and sixth rib fractures. 2. No identified acute cardiopulmonary abnormality. Dictated by: Dictated on workstation # [id number]
--- NOTE | 2020-03-03 07:45 | NUR ---
This nurse asked to clarify accucheck and insulin order, as ordered accuchecks q1Hx4, q2hx4, then q6h and prn and to dose patient with insulin with each accucheck as needed per sliding scale A that is ordered.
--- NOTE | 2020-03-03 10:41 | NUR ---
Verbal order received from that patient can be transferred to 4th floor as long as is also ok with patient's transfer. reports to this nurse that patient may transfer to 4th floor.
--- NOTE | 2020-03-03 11:13 | NUR ---
RD ASSESSMENT PMHx: cardiomyopathy; DM; hx of DKA; hx of wounds PT INTERACTION: Pt was awake and pleasant during nutrition assessment. Pt states current appetite is okay, and was the same prior to admit. Note PO intake of 75% x1meal, per chart review. Pt states following a regular diet at home, and has no issues with chewing/swallowing food. Pt states no recent issues with nausea, vomiting, constipation, or diarrhea, and that his last BM was 03/03. Note pt not currently on bowel regimen per chart review. Pt states no recent wt changes. Note recent 7# wt loss x3mon, per chart review. Pt states current DM management is "pretty good." Note pt has hx of DKA, and note recent HbA1c of 8.8 on 11/19/19, per chart review. ABNORMAL NUTRITION-RELATED LAB VALUES LOW: K 3.5; HIGH: glu 218; HbA1c 8.8 (taken 11/19/19) Est. kcal needs: 1444-7034 kcal | 25-30 kcal/kg Est. Pro needs: 58-70 g Pro | 1.0-1.2 g Pro/kg PES STATEMENT: Given current PO intake, no nutrition diagnosis at this time (NO-1.1) INTERVENTION: Continue with current diet order of CHO 60g/m 3snack diet. Discussed with pt current DM management. Pt states counting CHOs at meal times, using smartphone applications to get accurate measurements of CHOs. Discussed with pt importance of staying within a range of 60-75 g CHO per meal and 15 g per snack. Discussed with pt fiber's role in DM management and making sure to get around 38 g fiber per day. Pt verbalized understanding of information, and appeared confident to follow suggestions upon discharge. MONITOR/EVALUATE: PO Intake; Plan of Care; Hydration Status; Weight Status; Lab Values Nohelia Allen, MS, RD, LD
--- NOTE | 2020-03-03 11:18 | NUR ---
SPOKE WITH THE PT AND CALLED [facility] TO COMPLETE THE MED REC NOVOLOG: LAST FILLED 12-30-2019 #2 VIALS DIRECTIONS OF 25 UNITS TIDAC- PT SAYS SHE IS USING 10-12 UNITS / 2 UNITS PER CARB TIDAC LEVEMIR: LAST FILLED 11-21-2019 #2 VIALS/100DS OTC MEDS: NONE
--- NOTE | 2020-03-03 11:55 | NUR ---
SBAR report called to Abigail GOLDEN. This nurse took patient down to room 408 via wheel chair.
--- NOTE | 2020-03-03 11:55 | NUR ---
This RN took over patient care at this time from Tanya GOLDEN . patient alert and orientated on room air. Stated he already ate lunch upstairs and needs nothing else at this time.
--- NOTE | 2020-03-03 15:30 | NUR ---
the RN was notified that patient wanted to leave and go home. patient stated he could not be here anymore that he needed to go home and take care of his kids. doctor Eugene notified of request and instructed this RN to let him leave AMA
[2020-03-03 15:48] LABS: BUN/CREATININE RATIO 10; CALCIUM 8.7 MG/DL (8.5-10.1); CARBON DIOXIDE 27 MMOL/L (21-32); CHLORIDE 101 MMOL/L (98-107); CREATININE SERUM 0.93 MG/DL (0.60-1.30); GFR ESTIMATED > 60; GLUCOSE 247 MG/DL (70-105); POTASSIUM 3.7 MMOL/L (3.6-5.0); SODIUM 136 MMOL/L (135-145)
--- NOTE | 2020-03-03 16:00 | NUR ---
patient left AMA at this time. IV removed and patient instructed to go to either ER or registration entrance
== END 2020-03-03 16:00 | disposition left against medical advice (07) ==
LOC: EDUNIT# 20:52 → ER 20:57 → ICU 21:30 → 4TH 03-03 11:55
PROVIDERS: ADMIT Internal Medicine; ATTEND Internal Medicine
DX: E10.649 Type 1 diabetes mellitus with hypoglycemia without coma (principal); E10.10 Type 1 diabetes mellitus with ketoacidosis without coma; E10.43 Type 1 diabetes mellitus with diabetic autonomic (poly)neuropathy; E87.6 Hypokalemia; R55 Syncope and collapse; I42.9 Cardiomyopathy, unspecified; K31.84 Gastroparesis; Z88.0 Allergy status to penicillin; Z79.4 Long term (current) use of insulin; Z87.891 Personal history of nicotine dependence; Z82.49 Family history of ischemic heart disease and other diseases of the circulatory system
CPT/HCPCS: 36415; 71045; 80048; 80053; 80306; 81000; 82010; 82150; 82962; 83036; 83690; 83735; 84100; 85025; 87081; 96360; G0378

== ENCOUNTER 2020-03-16 08:32 | Emergency (ER) | payer SELFPAY ==
[~2020-03-16] VITALS: Ht 180.3 cm; Wt 55.2 kg
[2020-03-16] MEDS ORDERED: ONDANSETRON 4 MG/2 ML (SDV) Z0FRAN ONE (08:50)
[2020-03-16] MEDS ORDERED: LACTATED RINGERS 1,000 ML IV ONE (08:53)
[2020-03-16] MEDS ORDERED: ONDANSETRON 4 MG/2 ML (SDV) Z0FRAN IVP ONE (09:00)
[2020-03-16 09:03] LABS: BASOPHILS % (AUTO) 0 % (0-10); EOSINOPHILS # (AUTO) 0.1 10^3/uL (0.0-0.3); EOSINOPHILS % (AUTO) 1 % (0-10); HEMATOCRIT 39 % (40-54); HEMOGLOBIN 13.3 G/DL (13.3-17.7); LYMPHOCYTES # (AUTO) 1.5 X 10^3 (1.0-4.0); LYMPHOCYTES % (AUTO) 12 % (12-44); MEAN CORPUSCULAR HEMOGLOBIN 29 PG (25-34); MEAN CORPUSCULAR HGB CONC 34 G/DL (32-36); MEAN CORPUSCULAR VOLUME 86 FL (80-99); MEAN PLATELET VOLUME 9.2 FL (7.4-10.4); MONOCYTES # (AUTO) 0.5 X 10^3 (0.0-1.0); MONOCYTES % (AUTO) 4 % (0-12); NEUTROPHILS # (AUTO) 9.8 X 10^3 (1.8-7.8); NEUTROPHILS % (AUTO) 83 % (42-75); PLATELET COUNT 265 10^3/uL (130-400); RED CELL DISTRIBUTION WIDTH 13.5 % (10.0-14.5); WHITE BLOOD COUNT 11.9 10^3/uL (4.3-11.0)
[2020-03-16] MEDS ORDERED: fentaNYL INJECTION 100 MCG/2 ML AMP IVP STA (09:03)
[2020-03-16 09:15] LABS: ABG BASE EXCESS -0.3 MMOL/L (-2.5-2.5); ABG OXYGEN SATURATION 99 % (94-100); ABG PCO2 33 MMHG (35-45); ABG PH 7.46 (7.37-7.43); ABG PO2 114 MMHG (79-93); ABG TCO2 24.3 MMOL/L (21.0-31.0)
[2020-03-16 09:16] LABS: ALLENS TEST YES-POS; INSPIRED O2 ROOM AIR; PATIENT TEMP 36.4; VENTILATOR NO
[2020-03-16 09:16] LABS: ALBUMIN 4.3 GM/DL (3.2-4.5); CHLORIDE 105 MMOL/L (98-107); POTASSIUM 4.5 MMOL/L (3.6-5.0); SODIUM 137 MMOL/L (135-145)
[2020-03-16 09:17] LABS: CALCIUM 9.3 MG/DL (8.5-10.1)
[2020-03-16 09:19] LABS: GLUCOSE 215 MG/DL (70-105); TOTAL PROTEIN 7.5 GM/DL (6.4-8.2)
[2020-03-16 09:20] LABS: CARBON DIOXIDE 23 MMOL/L (21-32)
[2020-03-16 09:21] LABS: BILIRUBIN,TOTAL 0.8 MG/DL (0.1-1.0)
[2020-03-16 09:22] LABS: ALKALINE PHOSPHATASE 92 U/L (40-136)
[2020-03-16 09:23] LABS: CREATININE SERUM 0.76 MG/DL (0.60-1.30); GFR ESTIMATED > 60
[2020-03-16 09:24] LABS: BUN/CREATININE RATIO 12
[2020-03-16 09:25] LABS: ALANINE AMINOTRANSFERASE 22 U/L (0-55)
[2020-03-16 09:38] LABS: BILIRUBIN,URINE NEGATIVE (NEGATIVE); CLARITY,URINE CLEAR; COLOR,URINE YELLOW; GLUCOSE, URINE (UA) 3+ (NEGATIVE); KETONES,URINE NEGATIVE (NEGATIVE); LEUKOCYTE ESTERASE ,URINE NEGATIVE (NEGATIVE); NITRITE,URINE NEGATIVE (NEGATIVE); PROTEIN,URINE TRACE (NEGATIVE)
[2020-03-16 09:54] LABS: BACTERIA,URINE NEGATIVE /HPF
--- NOTE | 2020-03-16 10:04 | ED Abdominal Pain ---
General Chief Complaint: Abdominal/GI Problems Stated Complaint: LOWER BACK PAIN;VOMITING Nursing Triage Note: PT AMB TO RM 10 WITH COMPLAINT OF ABD PAIN THAT RADIATES TO THE BACK. STATES HE IS A TYPE 1 DIABETIC. Sepsis Screen: No Definite Risk Source of Information: Patient Exam Limitations: No Limitations (EZEQUIEL SPAULDING MD) History of Present Illness Date Seen by Provider: Mar 16, 2020 Time Seen by Provider: 08:54 Initial Comments Here with report of nausea and vomiting and left sided back pain. Nausea and vomiting started 3 days ago and pain started afterwards. Patient is type I diabetic and has had issues with DKA previously. Denies fevers but does have chills. Denies diarrhea. States blood sugars have been in the high 100s. Timing/Duration: 2-3 Days, Changing Over Time, Getting Worse Severity/Quality: Aching Location: Flank (left) Radiation: No Radiation Activities at Onset: None Modifying Factors: Worsens With Eating Associated Symptoms: Back Pain; No Chest Pain, No Diaphoresis; Fatigue, Nausea/ Vomiting; No Shortness of Air; Weakness (EZEQUIEL SPAULDING MD) Allergies and Home Medications Allergies Coded Allergies: Penicillins (Verified Allergy, Unknown, 05/23/06) Home Medications Insulin Aspart 100 Unit/1 Ml Susp, 10-12 UNIT SQ TIDAC, (Reported) USES 2 UNITS PER EVERY CARB LAST FILLED 12-30-2019 #2 VIALS Insulin Determir 1,000 Units/10 Ml Soln, 10-17 UNITS SQ HS, (Reported) LAST FILLED 11-21-2019 #2 VIALS / 100 DAY SUPPLY Prochlorperazine Maleate 10 Mg Tablet, 10 MG PO TID PRN for NAUSEA/VOMITING Prescribed by: NINOSKA LANE on 03/16/20 1304 Patient Home Medication List Home Medication List Reviewed: Yes (EZEQUIEL SPAULDING MD) Review of Systems Review of Systems Constitutional: see HPI, chills EENTM: No Symptoms Reported Respiratory: No Symptoms Reported Cardiovascular: No Symptoms Reported Gastrointestinal: Abdominal Pain, Nausea, Vomiting Genitourinary: Flank Pain; Denies Hematuria Musculoskeletal: no symptoms reported Skin: see HPI Psychiatric/Neurological: No Symptoms Reported Endocrine: No Symptoms Reported Hematologic/Lymphatic: No Symptoms Reported (EZEQUIEL SPAULDING MD) All Other Systems Reviewed Negative Unless Noted: Yes (EZEQUIEL SPAULDING MD) Past Wgtyktl-Yxehzr-Rfwpjs Hx Past Med/Social Hx: Reviewed Nursing Past Med/Soc Hx (EZEQUIEL SPAULDING MD) Patient Social History Alcohol Use: Denies Use Recreational Drug Use: Yes Drug of Choice: MARIJUANA Smoking Status: Former Smoker Type Used: Cigarettes Former Smoker, Quit: Sep 28, 2012 2nd Hand Smoke Exposure: No Recent Foreign Travel: No Contact w/Someone Who Travel: No Recent Infectious Disease Expo: No Recent Hopitalizations: No (EZEQUIEL SPAULDING MD) Immunizations Up To Date Tetanus Booster (TDap): Unknown PED Vaccines UTD: No Date of Pneumonia Vaccine: Sep 15, 2017 Date of Influenza Vaccine: Sep 15, 2019 (EZEQUIEL SPAULDING MD) Seasonal Allergies Seasonal Allergies: No (EZEQUIEL SPAULDING MD) Past Medical History Surgeries: No Respiratory: Yes Pneumonia Currently Using CPAP: No Currently Using BIPAP: No Cardiac: Yes (CARDIOMYOPATHY DX 2016) Cardiomyopathy Neurological: No Reproductive Disorders: No Sexually Transmitted Disease: No HIV/AIDS: No Genitourinary: No Gastrointestinal: Yes (GASTROPARESIS) Musculoskeletal: No Endocrine: Yes (DX AGE 11, [place] 2001; MULTIPLE ADMITS FOR DKA) Diabetes, Insulin dep Cancer: No Did You Recieve Any Treatments: No Psychosocial: No Integumentary: Yes (WOUNDS TO LOWER LEGS-- REQUIRED WOUND CARE CLINIC TREATMENT) Blood Disorders: No Adverse Reaction/Blood Tranf: No (EZEQUIEL SPAULDING MD) Family Medical History Reviewed Nursing Family Hx (EZEQUIEL SPAULDING MD) Cardiovascular disease 19 FATHER Hypertension 19 FATHER Heart Disease, Cancer, Hypertension (EZEQUIEL SPAULDING MD) Physical Exam Vital Signs Vital Signs - First Documented 03/16/20 08:45 Temp 36.4 Pulse 90 Resp 20 B/P (MAP) 148/106 (120) Pulse Ox 99 O2 Delivery Room Air (NINOSKA LANE APRN) Vital Signs Capillary Refill : Less Than 3 Seconds (EZEQUIEL SPAULDING MD) Height/Weight/BMI Height: 5'11.00" Weight: 126lbs. 0.0oz. [id number]; 16.00 BMI Method:Stated General Appearance: moderate distress (nausea and vomiting), thin HEENT: PERRL/EOMI, pharynx normal Neck: full range of motion, supple Respiratory: lungs clear, normal breath sounds Cardiovascular: regular rate, rhythm, no murmur Peripheral Pulses: 2+ Dorsalis Pedis (R), 2+ Left Dors-Pedis (L), 2+ Radial Pulses (R), 2+ Radial Pulses (L) Gastrointestinal: non tender, soft Extremities: non-tender, normal inspection Back: normal inspection, no vertebral tenderness; No CVA tenderness (R); CVA tenderness (L) Neurologic/Psychiatric: alert, oriented x 3 Skin: normal color, warm/dry (EZEQUIEL SPAULDING MD) Progress/Results/Core Measures Results/Orders Lab Results Laboratory Tests Test 03/16/20 08:53 03/16/20 09:09 03/16/20 09:29 Range/Units White Blood Count 11.9 H 4.3-11.0 10^3/uL Red Blood Count 4.57 4.35-5.85 10^6/uL Hemoglobin 13.3 13.3-17.7 G/DL Hematocrit 39 L 40-54 % Mean Corpuscular Volume 86 80-99 FL Mean Corpuscular Hemoglobin 29 25-34 PG Mean Corpuscular Hemoglobin Concent 34 32-36 G/DL Red Cell Distribution Width 13.5 10.0-14.5 % Platelet Count 265 130-400 10^3/uL Mean Platelet Volume 9.2 7.4-10.4 FL Neutrophils (%) (Auto) 83 H 42-75 % Lymphocytes (%) (Auto) 12 12-44 % Monocytes (%) (Auto) 4 0-12 % Eosinophils (%) (Auto) 1 0-10 % Basophils (%) (Auto) 0 0-10 % Neutrophils # (Auto) 9.8 H 1.8-7.8 X 10^3 Lymphocytes # (Auto) 1.5 1.0-4.0 X 10^3 Monocytes # (Auto) 0.5 0.0-1.0 X 10^3 Eosinophils # (Auto) 0.1 0.0-0.3 10^3/uL Basophils # (Auto) 0.0 0.0-0.1 10^3/uL Sodium Level 137 135-145 MMOL/L Potassium Level 4.5 3.6-5.0 MMOL/L Chloride Level 105 98-107 MMOL/L Carbon Dioxide Level 23 21-32 MMOL/L Anion Gap 9 5-14 MMOL/L Blood Urea Nitrogen 9 7-18 MG/DL Creatinine 0.76 0.60-1.30 MG/DL Estimat Glomerular Filtration Rate > 60 BUN/Creatinine Ratio 12 Glucose Level 215 H 70-105 MG/DL Glucometer 190 H 70-110 MG/DL Calcium Level 9.3 8.5-10.1 MG/DL Corrected Calcium 9.1 8.5-10.1 MG/DL Phosphorus Level 2.0 L 2.3-4.7 MG/DL Magnesium Level 2.0 1.6-2.4 MG/DL Total Bilirubin 0.8 0.1-1.0 MG/DL Aspartate Amino Transf (AST/SGOT) 32 5-34 U/L Alanine Aminotransferase (ALT/SGPT) 22 0-55 U/L Alkaline Phosphatase 92 40-136 U/L C-Reactive Protein High Sensitivity 0.30 0.00-0.50 MG/DL Total Protein 7.5 6.4-8.2 GM/DL Albumin 4.3 3.2-4.5 GM/DL Blood Gas Puncture Site LR Blood Gas Patient Temperature 36.4 Arterial Blood pH 7.46 H 7.37-7.43 Arterial Blood Partial Pressure CO2 33 L 35-45 MMHG Arterial Blood Partial Pressure O2 114 H 79-93 MMHG Arterial Blood HCO3 23 23-27 MMOL/L Arterial Blood Total CO2 24.3 21.0-31.0 MMOL/L Arterial Blood Oxygen Saturation 99 94-100 % Arterial Blood Base Excess -0.3 -2.5-2.5 MMOL/L Bony Test YES-POS Blood Gas Ventilator Setting NO Blood Gas Inspired Oxygen ROOM AIR Urine Color YELLOW Urine Clarity CLEAR Urine pH 7.0 5-9 Urine Specific [place] 1.020 1.016-1.022 Urine Protein TRACE H NEGATIVE Urine Glucose (UA) 3+ H NEGATIVE Urine Ketones NEGATIVE NEGATIVE Urine Nitrite NEGATIVE NEGATIVE Urine Bilirubin NEGATIVE NEGATIVE Urine Urobilinogen 0.2 < = 1.0 MG/DL Urine Leukocyte Esterase NEGATIVE NEGATIVE Urine RBC (Auto) 1+ H NEGATIVE Urine RBC 10-25 H /HPF Urine WBC 5-10 H /HPF Urine Crystals NONE /LPF Urine Bacteria NEGATIVE /HPF Urine Casts NONE /LPF Urine Mucus SMALL H /LPF Urine Culture Indicated YES Urine Opiates Screen NEGATIVE NEGATIVE Urine Oxycodone Screen NEGATIVE NEGATIVE Urine Methadone Screen NEGATIVE NEGATIVE Urine Propoxyphene Screen NEGATIVE NEGATIVE Urine Barbiturates Screen NEGATIVE NEGATIVE Ur Tricyclic Antidepressants Screen NEGATIVE NEGATIVE Urine Phencyclidine Screen NEGATIVE NEGATIVE Urine Amphetamines Screen NEGATIVE NEGATIVE Urine Methamphetamines Screen NEGATIVE NEGATIVE Urine Benzodiazepines Screen NEGATIVE NEGATIVE Urine Cocaine Screen NEGATIVE NEGATIVE Urine Cannabinoids Screen POSITIVE H NEGATIVE (NINOSKA LANE APRN) My Orders Orders - NINOSKA LANE APRN Diphenhydramine Injection (Benadryl Inje (03/16/20 10:30) Prochlorperazine Injection (Compazine In (03/16/20 10:30) Ns Iv 1000 Ml (Sodium Chloride 0.9%) (03/16/20 10:30) Ekg Tracing (03/16/20 10:29) Drug Screen Stat (Urine) (03/16/20 10:42) Haloperidol Injection (Haldol Injectio (03/16/20 11:00) (NINOSKA LANE APRN) Medications Given in ED Current Medications Medications Dose Ordered Sig/Luis Route Start Time Stop Time Status Last Admin Dose Admin Diphenhydramine HCl 25 mg ONCE ONCE IVP 03/16/20 10:30 03/16/20 10:31 DC 03/16/20 11:01 25 MG Haloperidol Lactate 5 mg ONCE ONCE IV 03/16/20 11:00 03/16/20 11:01 DC 03/16/20 11:28 5 MG Lactated Ringer's 1,000 ml @ 0 mls/hr Q0M ONCE IV 03/16/20 08:53 03/16/20 08:55 DC 03/16/20 09:01 0 MLS/HR Ondansetron HCl 8 mg ONCE ONCE IVP 03/16/20 09:00 03/16/20 09:01 DC 03/16/20 09:01 8 MG (NINOSKA LANE APRN) Vital Signs/I&O 03/16/20 03/16/20 08:45 13:21 Temp 36.4 Pulse 90 119 Resp 20 20 B/P (MAP) 148/106 (120) 155/100 Pulse Ox 99 99 O2 Delivery Room Air Room Air (NINOSKA LANE APRN) Blood Pressure Mean: 120 Progress Progress Note : Progress Note Seen and evaluated. IV, labs, UA, LR 1 L bolus, Zofran 8 mg IV ordered. Fentanyl 50 g IV ordered for pain. Monitor patient. 0958: CT abdomen and pelvis kidney stone protocol ordered due to blood in urine. Monitor patient. (EZEQUIEL SPAULDING MD) Departure Communication (Admissions) patient reports that he smokes marijuana quite frequently, this would make hyperemesis cannabinoid syndrome likely. Zofran didn't help. I then gave Benadryl and IV Haldol (5mg in a bag of normal saline over 20 minutes)after obtaining an EKG showing a normal QT interval. Symptoms did improve quite a bit. (NINOSKA LANE APRN) Impression Primary Impression: Cannabinoid hyperemesis syndrome Disposition: HOME, SELF-CARE Condition: Improved Departure-Patient Inst. Decision time for Depature: 18:58 ([address] APRN) Referrals: HILARIO FISHMAN DO (PCP) Primary Care Physician EMIL TORRES (Family) Primary Care Physician Scripts Prochlorperazine Maleate (Compazine) 10 Mg Tablet 10 MG PO TID PRN for NAUSEA/VOMITING, #14 TAB Prov: NINOSKA LANE APRN 03/16/20 EZEQUIEL SPAULDING MD Mar 16, 2020 10:[address] APRN Mar 16, 2020 11:38
[2020-03-16] MEDS ORDERED: diphenhydrAMINE 50 MG/ML INJ (BENADRYL) IVP ONE (10:30)
[2020-03-16] MEDS ORDERED: PROCHLORPERAZINE 10 MG/2ML INJ (COMPAZINE) IV ONE (10:30)
[2020-03-16] MEDS ORDERED: NS IV 1000 ML 1,000 ML IV SCH (10:30)
[2020-03-16] MEDS ORDERED: HALOPERIDOL 5 MG/ML (HALDOL) AMP IV ONE (11:00)
--- NOTE | 2020-03-16 11:03 | Diagnostic Imaging Report ---
PROCEDURE: CT urinary tract, rule out kidney stone. TECHNIQUE: Multiple contiguous axial images were obtained through the abdomen and pelvis without the use of intravenous contrast. Auto Exposure Controls were utilized during the CT exam to meet ALARA standards for radiation dose reduction. INDICATION: Left-sided pain. The previous CT abdomen/pelvis exam of 07/19/2019 failed to show any sign of an acute abnormality. FINDINGS: On this exam, there is still no evidence for nephrolithiasis or urolithiasis and the kidneys do not appear to be obstructed. There is no sign of cholelithiasis or acute cholecystitis either. The appendix was not well visualized but there are no indirect signs of acute appendicitis. There is a very small amount of free fluid low in the pelvis. This is nonspecific. There is no solid pelvic mass identified. The urinary bladder is grossly unremarkable. The prostate gland is not enlarged. The mild hepatomegaly seen on the prior study is again evident and no different. The spleen, pancreas, adrenals, aorta and inferior vena cava show no sign of an acute abnormality. The stomach is partially filled with fluid and consequently difficult to assess. The lung bases are clear. The bone windows show no evidence for fracture or for destructive lesion. IMPRESSION: 1. There is still no evidence for an acute abnormality of the abdomen or pelvis. In particular, there is no sign of nephrolithiasis or urolithiasis. The appendix was not well visualized but there are no indirect signs of acute appendicitis. 2. There is a small amount of nonspecific free fluid low in the pelvis. 3. There is persistent mild hepatomegaly. Dictated by: Dictated on workstation # [id number]
[2020-03-16 11:16] LABS: AMPHETAMINE SCREEN, URINE NEGATIVE (NEGATIVE); BARBITURATE SCREEN URINE NEGATIVE (NEGATIVE); BENZODIAZEPINES SCREEN URINE NEGATIVE (NEGATIVE); CANNABINOID SCREEN, URINE POSITIVE (NEGATIVE); COCAINE SCREEN URINE NEGATIVE (NEGATIVE); METHADONE STAT NEGATIVE (NEGATIVE); METHAMPHETAMINE SCREEN URINE S NEGATIVE (NEGATIVE); OPIATE SCREEN URINE NEGATIVE (NEGATIVE); TRICYCLIC ANTIDEPRESSANTS SCRE NEGATIVE (NEGATIVE)
[2020-03-16 11:17] LABS: OXYCODONE STAT NEGATIVE (NEGATIVE); PROPOXYPHENE STAT NEGATIVE (NEGATIVE)
[2020-03-16] MEDS ORDERED: PROC-1 PO (13:04)
[2020-03-16 13:21] VITALS: BP 155/100
== END 2020-03-16 13:21 | disposition home or self-care (01) ==
LOC: EDUNIT# 08:32 → ER 08:33
DX: F12.988 Cannabis use, unspecified with other cannabis-induced disorder (principal); E10.43 Type 1 diabetes mellitus with diabetic autonomic (poly)neuropathy; K31.84 Gastroparesis; E10.10 Type 1 diabetes mellitus with ketoacidosis without coma; Z88.0 Allergy status to penicillin; Z79.4 Long term (current) use of insulin; Z87.891 Personal history of nicotine dependence; Z82.49 Family history of ischemic heart disease and other diseases of the circulatory system
CPT/HCPCS: 36415; 36600; 74176; 80053; 80306; 81000; 82805; 82962; 83735; 84100; 85025; 86141; 87088; 93005

== ENCOUNTER 2020-03-18 19:55 | Inpatient (IN) | payer SELFPAY ==
[~2020-03-18] VITALS: Ht 180.3 cm; Wt 54.0 kg
[~2020-03-18 19:55] MED LIST changes: +PROC-1 PO
[2020-03-18 20:17] LABS: BASOPHILS % (AUTO) 0 % (0-10); EOSINOPHILS % (AUTO) 0 % (0-10); HEMATOCRIT 33 % (40-54); HEMOGLOBIN 11.2 G/DL (13.3-17.7); LYMPHOCYTES # (AUTO) 2.8 X 10^3 (1.0-4.0); LYMPHOCYTES % (AUTO) 20 % (12-44); MEAN CORPUSCULAR HEMOGLOBIN 29 PG (25-34); MEAN CORPUSCULAR HGB CONC 34 G/DL (32-36); MEAN CORPUSCULAR VOLUME 85 FL (80-99); MEAN PLATELET VOLUME 9.1 FL (7.4-10.4); MONOCYTES % (AUTO) 7 % (0-12); NEUTROPHILS # (AUTO) 10.4 X 10^3 (1.8-7.8); NEUTROPHILS % (AUTO) 73 % (42-75); PLATELET COUNT 389 10^3/uL (130-400); RED CELL DISTRIBUTION WIDTH 13.5 % (10.0-14.5); WHITE BLOOD COUNT 14.2 10^3/uL (4.3-11.0)
--- NOTE | 2020-03-18 20:20 | ED General ---
General Chief Complaint: Chest Pain Stated Complaint: HEART RACING, SOB Nursing Triage Note: PT TO ROOM 07 VIA W/C WITH C/O CHEST PAIN, SOB, AND WEAKNESS. Nursing Sepsis Screen: No Definite Risk Source of Information: Patient History of Present Illness Date Seen by Provider: Mar 18, 2020 Time Seen by Provider: 20:17 Initial Comments To er with c/o chest pain shortness of breath and weakness since last night. was seen here recently for nausea and vomiting. Is a known insulin dependent diabetic. States his sugars have been in the 200s. Denies cough. Reports mild nausea, no vomiting, no abdominal pain. Timing/Duration: 1-2 Days Severity: Moderate Associated Systoms: Nausea/Vomiting Allergies and Home Medications Allergies Coded Allergies: Penicillins (Verified Allergy, Unknown, 05/23/06) Home Medications Insulin Aspart 100 Unit/1 Ml Susp, 10-12 UNIT SQ TIDAC, (Reported) USES 2 UNITS PER EVERY CARB LAST FILLED 12-30-2019 #2 VIALS Insulin Determir 1,000 Units/10 Ml Soln, 10-17 UNITS SQ HS, (Reported) LAST FILLED 11-21-2019 #2 VIALS / 100 DAY SUPPLY Prochlorperazine Maleate 10 Mg Tablet, 10 MG PO TID PRN for NAUSEA/VOMITING Prescribed by: NINOSKA LANE on 03/16/20 1304 Patient Home Medication List Home Medication List Reviewed: Yes Review of Systems Review of Systems Constitutional: see HPI EENTM: see HPI Respiratory: see HPI, short of breath Cardiovascular: no symptoms reported Genitourinary: no symptoms reported Musculoskeletal: no symptoms reported Skin: no symptoms reported Psychiatric/Neurological: No Symptoms Reported Hematologic/Lymphatic: No Symptoms Reported Immunological/Allergic: no symptoms reported Past Fjhscdd-Eixmyk-Emhyqw Hx Patient Social History Alcohol Use: Denies Use Recreational Drug Use: No Drug of Choice: MARIJUANA Smoking Status: Former Smoker Type Used: Cigarettes Former Smoker, Quit: Sep 28, 2012 2nd Hand Smoke Exposure: No Recent Foreign Travel: No Contact w/Someone Who Travel: No Recent Infectious Disease Expo: No Recent Hopitalizations: No Physical Abuse: No Sexual Abuse: No Mistreated: No Fear: No Immunizations Up To Date Tetanus Booster (TDap): Unknown PED Vaccines UTD: No Date of Pneumonia Vaccine: Sep 15, 2017 Date of Influenza Vaccine: Sep 15, 2019 Seasonal Allergies Seasonal Allergies: No Past Medical History Surgeries: No Respiratory: Yes Pneumonia Currently Using CPAP: No Currently Using BIPAP: No Cardiac: Yes (CARDIOMYOPATHY DX 2016) Cardiomyopathy Neurological: No Reproductive Disorders: No Sexually Transmitted Disease: No HIV/AIDS: No Genitourinary: No Gastrointestinal: Yes (GASTROPARESIS) Musculoskeletal: No Endocrine: Yes (DX AGE 11, [place] 2001; MULTIPLE ADMITS FOR DKA) Diabetes, Insulin dep Cancer: No Did You Recieve Any Treatments: No Psychosocial: No Integumentary: Yes (WOUNDS TO LOWER LEGS-- REQUIRED WOUND CARE CLINIC TREATMENT) Blood Disorders: No Adverse Reaction/Blood Tranf: No Family Medical History Cardiovascular disease 19 FATHER Hypertension 19 FATHER Heart Disease, Cancer, Hypertension Physical Exam Vital Signs Vital Signs - First Documented 03/18/20 20:02 Temp 37.9 Pulse 127 Resp 21 B/P (MAP) 89/49 (62) O2 Delivery Room Air Capillary Refill : NONE Height, Weight, BMI Height: 5'11.00" Weight: 126lbs. 0.0oz. 57.179173uw; 17.00 BMI Method:Stated General Appearance: WD/WN, Thin, Other (lethargic, tachycardic at 120s sinus, hypotensive 96/45) Eyes: Bilateral Eye Normal Inspection, Bilateral Eye PERRL, Bilateral Eye EOMI HEENT: PERRL/EOMI, TMs Normal Neck: Full Range of Motion, Normal Inspection Respiratory: No Accessory Muscle Use, No Respiratory Distress Cardiovascular: Normal Peripheral Pulses, Tachycardia Gastrointestinal: Normal Bowel Sounds, Non Tender, Soft Extremity: Normal Capillary Refill, Normal Inspection Neurologic/Psychiatric: Alert, Oriented x3 Skin: Normal Color, Warm/Dry Focused Exam Lactate Level 03/18/20 20:06: Lactic Acid Level 1.11 Lactic Acid Level Laboratory Tests Test 03/18/20 20:06 Lactic Acid Level 1.11 MMOL/L (0.50-2.00) Progress/Results/Core Measures Suspected Sepsis Recent Fever Within 48 Hours: No Infection Criteria Present: None New/Unexplained Altered Menta: No Sepsis Screen: No Definite Risk SIRS Temperature: Pulse: 127 Respiratory Rate: 21 Laboratory Tests 03/18/20 20:06: White Blood Count 14.2H Blood Pressure 89 /49 Mean: 62 03/18/20 20:06: Lactic Acid Level 1.11 Laboratory Tests 03/18/20 20:06: Creatinine 1.24, Platelet Count 389, Total Bilirubin 0.7 Results/Orders Lab Results Laboratory Tests Test 03/18/20 20:06 03/18/20 21:32 Range/Units White Blood Count 14.2 H 4.3-11.0 10^3/uL Red Blood Count 3.91 L 4.35-5.85 10^6/uL Hemoglobin 11.2 L 13.3-17.7 G/DL Hematocrit 33 L 40-54 % Mean Corpuscular Volume 85 80-99 FL Mean Corpuscular Hemoglobin 29 25-34 PG Mean Corpuscular Hemoglobin Concent 34 32-36 G/DL Red Cell Distribution Width 13.5 10.0-14.5 % Platelet Count 389 130-400 10^3/uL Mean Platelet Volume 9.1 7.4-10.4 FL Neutrophils (%) (Auto) 73 42-75 % Lymphocytes (%) (Auto) 20 12-44 % Monocytes (%) (Auto) 7 0-12 % Eosinophils (%) (Auto) 0 0-10 % Basophils (%) (Auto) 0 0-10 % Neutrophils # (Auto) 10.4 H 1.8-7.8 X 10^3 Lymphocytes # (Auto) 2.8 1.0-4.0 X 10^3 Monocytes # (Auto) 1.0 0.0-1.0 X 10^3 Eosinophils # (Auto) 0.0 0.0-0.3 10^3/uL Basophils # (Auto) 0.0 0.0-0.1 10^3/uL Neutrophils % (Manual) 77 % Lymphocytes % (Manual) 16 % Monocytes % (Manual) 5 % Eosinophils % (Manual) 2 % Basophils % (Manual) 0 % Band Neutrophils 0 % Blood Morphology Comment NORMAL D-Dimer < 0.27 0.00-0.49 UG/ML Sodium Level 134 L 135-145 MMOL/L Potassium Level 3.7 3.6-5.0 MMOL/L Chloride Level 100 98-107 MMOL/L Carbon Dioxide Level 12 L 21-32 MMOL/L Anion Gap 22 H 5-14 MMOL/L Blood Urea Nitrogen 11 7-18 MG/DL Creatinine 1.24 0.60-1.30 MG/DL Estimat Glomerular Filtration Rate > 60 BUN/Creatinine Ratio 9 Glucose Level 218 H 70-105 MG/DL Lactic Acid Level 1.11 0.50-2.00 MMOL/L Calcium Level 8.8 8.5-10.1 MG/DL Corrected Calcium 9.0 8.5-10.1 MG/DL Magnesium Level 1.9 1.6-2.4 MG/DL Total Bilirubin 0.7 0.1-1.0 MG/DL Aspartate Amino Transf (AST/SGOT) 19 5-34 U/L Alanine Aminotransferase (ALT/SGPT) 16 0-55 U/L Alkaline Phosphatase 83 40-136 U/L Troponin I < 0.028 <0.028 NG/ML B-Type Natriuretic Peptide 18.8 <100.0 PG/ML Total Protein 6.4 6.4-8.2 GM/DL Albumin 3.8 3.2-4.5 GM/DL Blood Gas Puncture Site RT RADIAL Blood Gas Patient Temperature 37.9 Arterial Blood pH 7.31 *L 7.37-7.43 Arterial Blood Partial Pressure CO2 19 *L 35-45 MMHG Arterial Blood Partial Pressure O2 126 H 79-93 MMHG Arterial Blood HCO3 9 *L 23-27 MMOL/L Arterial Blood Total CO2 9.5 L 21.0-31.0 MMOL/L Arterial Blood Oxygen Saturation 99 94-100 % Arterial Blood Base Excess -16.2 L -2.5-2.5 MMOL/L Bony Test YES-POS Blood Gas Ventilator Setting NO Blood Gas Inspired Oxygen ROOM AIR My Orders Orders - NINOSKA LANE APRN Cbc With Automated Diff (03/18/20 20:10) Comprehensive Metabolic Panel (03/18/20 20:10) Blood Culture (03/18/20 20:10) BNP (03/18/20 20:10) Lactic Acid Analyzer (03/18/20 20:10) Beta Hydroxybutyrate (03/18/20 20:10) Ed Iv/Invasive Line Start (03/18/20 20:10) Chest 1 View, Ap/Pa Only (03/18/20 20:10) Ekg Tracing (03/18/20 20:10) Magnesium (03/18/20 20:10) Manual Differential (03/18/20 20:06) Troponin I (03/18/20 20:21) Lorazepam Injection (Ativan Injection) (03/18/20 21:15) Lactated Ringers (Lr 1000 Ml Iv Solution (03/18/20 21:15) Fibrin Degradation Products (03/18/20 21:12) Ns Iv 1000 Ml (Sodium Chloride 0.9%) (03/18/20 21:15) Arterial Blood Gas (03/18/20 21:15) D5 Ns 1000 Ml Iv So... W/Potassium Chlor (03/18/20 22:00) Arterial Blood Draw (03/18/20 ) Insulin Regular Drip (Myxredlin 100 Unit (03/18/20 22:00) Ua Culture If Indicated (03/18/20 21:50) Drug Screen Stat (Urine) (03/18/20 21:50) Medications Given in ED Current Medications Medications Dose Ordered Sig/Luis Route Start Time Stop Time Status Last Admin Dose Admin Lorazepam 0.5 mg ONCE PRN IVP 03/18/20 21:15 03/18/20 21:14 0.5 MG Vital Signs/I&O 03/18/20 03/18/20 20:02 20:05 Temp 37.9 Pulse 127 Resp 21 B/P (MAP) 89/49 (62) O2 Delivery Room Air Room Air Capillary Refill : NONE Blood Pressure Mean: 62 Diagnostic Imaging Diagonstic Imaging: Xray Plain Films/CT/US/NM/MRI: chest Comments NAME: CHEMO WEISS MED REC#: [id number] PT STATUS: REG ER : 1990 PHYSICIAN: NINOSKA LANE APRN ADMIT DATE: 03/18/20/ER Draft Date of Exam:03/18/20 CHEST 1 VIEW, AP/PA ONLY INDICATION: Chest pain and shortness of breath. EXAMINATION: Portable chest at 8:35 p.m. FINDINGS: Heart size and pulmonary vascularity are normal. Lungs are clear. There is no effusion or pneumothorax. IMPRESSION: Negative chest. Dictated on workstation # [id number] Dict: 03/18/202042 Trans: 03/18/202049 [facility] [id number] Interpreted by: EZEQUIEL MAGALLON MD Electronically signed by: Departure Communication (Admissions) Time/Spoke to Admitting Phy: 21:52 2110-BP up to 110/58 but HR is also up to 140 still sinus. Anxiouis appearing 2151-Bp 101/51, HR 131 after 2 liters crystalloids. admit to dr zavala ICU insulin drip+d5. Impression Primary Impression: Diabetic ketoacidosis Qualified Codes: E10.10 - Type 1 diabetes mellitus with ketoacidosis without coma Disposition: ADMITTED INPATIENT Condition: Stable Admissions Decision to Admit Reason: Admit from ER (General) Decision to Admit/Date: Mar 18, 2020 Time/Decision to Admit Time: 21:54 Departure-Patient Inst. Referrals: HILARIO FISHMAN DO (PCP) Primary Care Physician EMIL TORRES (Family) Primary Care Physician NINOSKA LANE APRN Mar 18, 2020 20:20
[2020-03-18 20:41] LABS: BAND NEUTROPHILS 0 %; BASOPHILS % (MANUAL) 0 %; EOSINOPHILS % (MANUAL) 2 %; LYMPHOCYTES % (MANUAL) 16 %; MONOCYTES % (MANUAL) 5 %; NEUTROPHILS % (MANUAL) 77 %
[2020-03-18 20:47] LABS: ALANINE AMINOTRANSFERASE 16 U/L (0-55); ALBUMIN 3.8 GM/DL (3.2-4.5); ALKALINE PHOSPHATASE 83 U/L (40-136); BILIRUBIN,TOTAL 0.7 MG/DL (0.1-1.0); BUN/CREATININE RATIO 9; CALCIUM 8.8 MG/DL (8.5-10.1); CARBON DIOXIDE 12 MMOL/L (21-32); CHLORIDE 100 MMOL/L (98-107); CREATININE SERUM 1.24 MG/DL (0.60-1.30); GFR ESTIMATED > 60; GLUCOSE 218 MG/DL (70-105); MAGNESIUM 1.9 MG/DL (1.6-2.4); POTASSIUM 3.7 MMOL/L (3.6-5.0); SODIUM 134 MMOL/L (135-145); TOTAL PROTEIN 6.4 GM/DL (6.4-8.2)
--- NOTE | 2020-03-18 20:51 | Diagnostic Imaging Report ---
INDICATION: Chest pain and shortness of breath. EXAMINATION: Portable chest at 8:35 p.m. FINDINGS: Heart size and pulmonary vascularity are normal. Lungs are clear. There is no effusion or pneumothorax. IMPRESSION: Negative chest. Dictated by: Dictated on workstation # [id number]
[2020-03-18 20:58] LABS: RBC MORPH NORMAL
[2020-03-18] MEDS ORDERED: LACTATED RINGERS 1,000 ML IV SCH (21:15)
[2020-03-18] MEDS ORDERED: LORazepam INJ 2 MG/ML (ATIVAN) VIAL IVP PRN (21:15)
[2020-03-18] MEDS ORDERED: NS IV 1000 ML 1,000 ML IV SCH ×2 (21:15→22:52)
[2020-03-18 21:37] LABS: ABG BASE EXCESS -16.2 MMOL/L (-2.5-2.5); ABG OXYGEN SATURATION 99 % (94-100); ABG PO2 126 MMHG (79-93); ABG TCO2 9.5 MMOL/L (21.0-31.0)
[2020-03-18 21:43] LABS: ABG PCO2 19 MMHG (35-45); ABG PH 7.31 (7.37-7.43)
[2020-03-18 21:44] LABS: PATIENT TEMP 37.9; VENTILATOR NO
[2020-03-18 21:47] LABS: ALLENS TEST YES-POS; INSPIRED O2 ROOM AIR
[2020-03-18 22:30] VITALS: BP 142/79
[2020-03-18 22:45] VITALS: BP 122/68
[2020-03-18] MEDS ORDERED: ONDANSETRON 4 MG/2 ML (SDV) Z0FRAN IV PRN (22:45)
[2020-03-18] MEDS ORDERED: fentaNYL INJECTION 100 MCG/2 ML AMP IV PRN (22:45)
[2020-03-18 23:00] VITALS: BP 111/61
[2020-03-18] MEDS: POTASSIUM CHLORIDE INJ 20 MEQ in D5 NS 1000 ML IV SOLUTION 1,000 ML IV SCH (23:08)
[2020-03-18 23:09] LABS: CLARITY,URINE CLEAR; COLOR,URINE YELLOW; GLUCOSE, URINE (UA) 2+ (NEGATIVE); KETONES,URINE 3+ (NEGATIVE); LEUKOCYTE ESTERASE ,URINE NEGATIVE (NEGATIVE); NITRITE,URINE NEGATIVE (NEGATIVE); PH,URINE 5.5 (5-9); PROTEIN,URINE NEGATIVE (NEGATIVE)
[2020-03-18 23:12] LABS: BILIRUBIN,URINE 2+ (NEGATIVE)
[2020-03-18 23:14] LABS: BACTERIA,URINE TRACE /HPF; WBC,URINE 0-2 /HPF
[2020-03-18 23:15] VITALS: BP 120/77
[2020-03-18] MEDS: LORazepam INJ 2 MG/ML (ATIVAN) VIAL IV PRN (23:15)
[2020-03-18 23:17] LABS: AMPHETAMINE SCREEN, URINE NEGATIVE (NEGATIVE); BARBITURATE SCREEN URINE NEGATIVE (NEGATIVE); BENZODIAZEPINES SCREEN URINE NEGATIVE (NEGATIVE); CANNABINOID SCREEN, URINE POSITIVE (NEGATIVE); COCAINE SCREEN URINE NEGATIVE (NEGATIVE); METHADONE STAT NEGATIVE (NEGATIVE); METHAMPHETAMINE SCREEN URINE S NEGATIVE (NEGATIVE); OPIATE SCREEN URINE NEGATIVE (NEGATIVE); OXYCODONE STAT NEGATIVE (NEGATIVE); PROPOXYPHENE STAT NEGATIVE (NEGATIVE); TRICYCLIC ANTIDEPRESSANTS SCRE NEGATIVE (NEGATIVE)
[2020-03-18 23:29] LABS: HEMOGLOBIN 10.5 G/DL (13.3-17.7); MEAN PLATELET VOLUME 8.7 FL (7.4-10.4); WHITE BLOOD COUNT 14.8 10^3/uL (4.3-11.0)
[2020-03-18 23:42] LABS: CHLORIDE 102 MMOL/L (98-107); POTASSIUM 4.4 MMOL/L (3.6-5.0); SODIUM 134 MMOL/L (135-145)
[2020-03-18 23:44] LABS: CALCIUM 8.2 MG/DL (8.5-10.1); GLUCOSE 383 MG/DL (70-105)
[2020-03-18 23:45] VITALS: BP 145/87
[2020-03-18 23:48] LABS: CREATININE SERUM 1.16 MG/DL (0.60-1.30); GFR ESTIMATED > 60
[2020-03-18 23:49] LABS: BUN/CREATININE RATIO 11
[2020-03-18] MEDS: 1/2 NS IV SOLUTION 1,000 ML IV SCH (23:51)
[2020-03-18] MEDS: POTASSIUM CL 10MEQ/50ML IVPB 50 ML IV SCH (23:51)
[2020-03-18 23:53] LABS: CARBON DIOXIDE 6 MMOL/L (21-32)
[2020-03-19] VITALS (22 sets, daily range): BP systolic 108–158; BP diastolic 67–105
[2020-03-19] MEDS: D5 1/2 NS 1000 ML IV SOLUTION 1,000 ML IV SCH ×6 (00:54→21:49)
[2020-03-19 00:57] LABS: CHLORIDE 106 MMOL/L (98-107); SODIUM 134 MMOL/L (135-145)
[2020-03-19 00:58] LABS: GLUCOSE 243 MG/DL (70-105)
[2020-03-19 01:02] LABS: CREATININE SERUM 1.06 MG/DL (0.60-1.30); GFR ESTIMATED > 60
[2020-03-19 01:03] LABS: BUN/CREATININE RATIO 11
[2020-03-19 01:15] LABS: CARBON DIOXIDE 8 MMOL/L (21-32)
[2020-03-19] MEDS: POTASSIUM CL 10MEQ/50ML IVPB 50 ML IV SCH ×9 (01:57→21:49)
[2020-03-19] MEDS: 1/2 NS IV SOLUTION 1,000 ML IV SCH ×6 (03:07→21:54)
[2020-03-19] MEDS: POTASSIUM CHLORIDE INJ 20 MEQ in D5 NS 1000 ML IV SOLUTION 1,000 ML IV SCH ×2 (03:08→05:11)
[2020-03-19 03:49] LABS: BASOPHILS % (AUTO) 0 % (0-10); EOSINOPHILS % (AUTO) 0 % (0-10); HEMATOCRIT 32 % (40-54); HEMOGLOBIN 10.6 G/DL (13.3-17.7); LYMPHOCYTES # (AUTO) 2.9 X 10^3 (1.0-4.0); LYMPHOCYTES % (AUTO) 19 % (12-44); MEAN CORPUSCULAR HEMOGLOBIN 28 PG (25-34); MEAN CORPUSCULAR HGB CONC 33 G/DL (32-36); MEAN CORPUSCULAR VOLUME 85 FL (80-99); MEAN PLATELET VOLUME 9.4 FL (7.4-10.4); MONOCYTES # (AUTO) 1.1 X 10^3 (0.0-1.0); MONOCYTES % (AUTO) 7 % (0-12); NEUTROPHILS # (AUTO) 11.9 X 10^3 (1.8-7.8); NEUTROPHILS % (AUTO) 75 % (42-75); PLATELET COUNT 302 10^3/uL (130-400); RED CELL DISTRIBUTION WIDTH 14.1 % (10.0-14.5); WHITE BLOOD COUNT 15.9 10^3/uL (4.3-11.0)
[2020-03-19 04:09] LABS: ALANINE AMINOTRANSFERASE 15 U/L (0-55); ALBUMIN 3.3 GM/DL (3.2-4.5); ALKALINE PHOSPHATASE 65 U/L (40-136); BILIRUBIN,TOTAL 0.6 MG/DL (0.1-1.0); BUN/CREATININE RATIO 10; CARBON DIOXIDE 13 MMOL/L (21-32); CHLORIDE 107 MMOL/L (98-107); CREATININE SERUM 1.04 MG/DL (0.60-1.30); GFR ESTIMATED > 60; GLUCOSE 190 MG/DL (70-105); SODIUM 135 MMOL/L (135-145); TOTAL PROTEIN 5.4 GM/DL (6.4-8.2)
--- NOTE | 2020-03-19 05:25 | Pulmonary Consultation ---
History of Present Illness History of Present Illness Date Seen by Provider: Mar 19, 2020 Time Seen by Provider: 05:20 Date of Admission Allergies and Home Medications Allergies Coded Allergies: Penicillins (Verified Allergy, Unknown, 05/23/06) Home Medications Insulin Aspart 100 Unit/1 Ml Susp, 10-12 UNIT SQ TIDAC, (Reported) USES 2 UNITS PER EVERY CARB LAST FILLED 12-30-2019 #2 VIALS Insulin Determir 1,000 Units/10 Ml Soln, 10-17 UNITS SQ HS, (Reported) LAST FILLED 11-21-2019 #2 VIALS / 100 DAY SUPPLY Prochlorperazine Maleate 10 Mg Tablet, 10 MG PO TID PRN for NAUSEA/VOMITING Prescribed by: NINOSKA LANE on 03/16/20 1304 Past Kenbhhy-Pryxtd-Xvnlcq Hx Patient Social History Alcohol Use: Denies Use Recreational Drug Use: No Drug of Choice: MARIJUANA Smoking Status: Former Smoker Type Used: Cigarettes Former Smoker, Quit: Sep 28, 2012 2nd Hand Smoke Exposure: No Recent Foreign Travel: No Contact w/Someone Who Travel: No Recent Infectious Disease Expo: No Recent Hopitalizations: No Physical Abuse: No Sexual Abuse: No Mistreated: No Fear: No Immunizations Up To Date Tetanus Booster (TDap): Unknown PED Vaccines UTD: No Date of Pneumonia Vaccine: Sep 15, 2017 Date of Influenza Vaccine: Sep 15, 2019 Seasonal Allergies Seasonal Allergies: No Past Medical History Surgeries: No Respiratory: Yes Pneumonia Currently Using CPAP: No Currently Using BIPAP: No Cardiac: Yes (CARDIOMYOPATHY DX 2016) Cardiomyopathy Neurological: No Reproductive Disorders: No Sexually Transmitted Disease: No HIV/AIDS: No Genitourinary: No Gastrointestinal: Yes (GASTROPARESIS) Musculoskeletal: No Endocrine: Yes (DX AGE 11, [place] 2001; MULTIPLE ADMITS FOR DKA) Diabetes, Insulin dep Cancer: No Did You Recieve Any Treatments: No Psychosocial: No Integumentary: Yes (WOUNDS TO LOWER LEGS-- REQUIRED WOUND CARE CLINIC TREATMENT) Blood Disorders: No Adverse Reaction/Blood Tranf: No Family Medical History Cardiovascular disease 19 FATHER Hypertension 19 FATHER Heart Disease, Cancer, Hypertension Review of Systems Time Seen by Provider: 05:23 Sepsis Event Evaluation Height, Weight, BMI Height: 5'11.00" Weight: 126lbs. 0.0oz. 57.420210nd; 16.88 BMI Method:Stated Exam Exam Vital Signs Date Time Temp Pulse Resp B/P (MAP) Pulse Ox O2 Delivery O2 Flow Rate FiO2 03/19/20 05:00 113 25 125/81 (96) 100 Room Air 03/19/20 04:00 105 21 113/71 (85) 100 Room Air 03/19/20 04:00 100 Room Air 03/19/20 03:49 36.7 03/19/20 03:00 111 24 130/84 (99) 100 Room Air 03/19/20 01:45 110 21 108/70 (83) 100 Room Air 03/19/20 01:00 114 03/19/20 00:15 122 25 136/89 (105) 100 Room Air 03/19/20 00:00 100 Room Air 03/18/20 23:45 129 25 145/87 (106) 100 Room Air 03/18/20 23:35 100 Room Air 03/18/20 23:15 134 30 120/77 (91) 100 Room Air 03/18/20 23:00 151 26 111/61 (78) 100 Room Air 03/18/20 22:45 37.2 03/18/20 22:45 150 03/18/20 22:45 147 31 122/68 (86) 100 Room Air 03/18/20 22:41 122 21 92/47 97 Room Air 03/18/20 22:30 147 31 142/79 (100) 100 Room Air 03/18/20 20:05 Room Air 03/18/20 20:02 37.9 127 21 89/49 (62) Room Air I & O 03/19/20 07:00 Intake Total 3600 ml Output Total 1550 ml Balance 2050 ml Height & Weight Height: 5'11.00" Weight: 126lbs. 0.0oz. 57.988639ju; 16.88 BMI Method:Stated General Appearance: WD/WN, Thin, Other (lethargic, tachycardic at 120s sinus, hypotensive 96/45) HEENT: PERRL/EOMI, TMs Normal Neck: Full Range of Motion, Normal Inspection Respiratory: No Accessory Muscle Use, No Respiratory Distress Cardiovascular: Normal Peripheral Pulses, Tachycardia Capillary Refill: NONE Extremity: Normal Capillary Refill, Normal Inspection Neurologic/Psychiatric: Alert, Oriented x3 Skin: Normal Color, Warm/Dry Results Lab Laboratory Tests 6/3/20 20:06 03/18/20 23:21 03/19/20 00:39 03/19/20 02:50 Assessment/Plan Assessment/Plan Acute DKA -DKA protocol -IVF -Insulin gtt Marijuanna use -education Nausea secondary to DKA and Marijuanna -Education Sinus tach -IVF Acute dehydration -IVF LUIS ANGEL MONGE DO Mar 19, 2020 05:25
[2020-03-19 05:46] LABS: CHLORIDE 109 MMOL/L (98-107); POTASSIUM 3.8 MMOL/L (3.6-5.0)
[2020-03-19 05:47] LABS: SODIUM 136 MMOL/L (135-145)
[2020-03-19 05:48] LABS: CALCIUM 7.7 MG/DL (8.5-10.1); GLUCOSE 179 MG/DL (70-105)
[2020-03-19 05:50] LABS: CARBON DIOXIDE 16 MMOL/L (21-32)
[2020-03-19 05:52] LABS: GFR ESTIMATED > 60
[2020-03-19 05:53] LABS: BUN/CREATININE RATIO 9
--- NOTE | 2020-03-19 07:02 | History & Physical-Hospitalist ---
History of Present Illness HPI/Chief Complaint CC: DKA HPI: This is a 29yoWM who is in the hospital frequently for DKA, presented with tachycardia of 130 s/p 2 L of fluid that did not resolve and acidosis of 11, but blood sugar was 230. He was placed on insulin drip with D5 normal saline infusion and Pt feels much better today, denies any nausea vomiting and overall feels pretty good otherwise. Pt has very brittle DM. Source: patient Exam Limitations: no limitations Date Seen 03/19/20 Time Seen by a Provider: 09:00 Attending Physician Lore Knight Linda K DO Referring Physician Date of Admission Mar 18, 2020 at 21:48 Home Medications & Allergies Home Medications Reviewed patient Home Medication Reconciliation performed by pharmacy medication reconciliations histotechnician and/or nursing. Patients Allergies have been reviewed. Allergies Allergies Coded Allergies Penicillins (Verified Allergy, Unknown, 05/23/06) Past Wlhyjwh-Tswbwj-Iswtxa Hx Past Med/Social Hx: Reviewed Nursing Past Med/Soc Hx, Reviewed and Corrections made Patient Social History Marrital Status: cohabiting Alcohol Use: Denies Use Recreational Drug Use: No Drug of Choice: MARIJUANA Smoking Status: Former Smoker Former Smoker, Quit: Sep 28, 2012 Type Used: Cigarettes 2nd Hand Smoke Exposure: No Recent Foreign Travel: No Contact w/other who traveled: No Recent Hopitalizations: No Recent Infectious Disease Expo: No Immunizations Up To Date Tetanus Booster (TDap): Unknown Pediatric: No Date of Pneumonia Vaccine: Sep 15, 2017 Date of Influenza Vaccine: Sep 15, 2019 Seasonal Allergies Seasonal Allergies: No Past Medical History Currently Using CPAP: No Currently Using BIPAP: No Cardiac: Cardiomyopathy Reproductive: No Sexually Transmitted Disease: No HIV/AIDS: No Endocrine: Diabetes, Insulin dep Did You Recieve Any Treatments: No History of Blood Disorders: No Adverse Reaction to Blood Ryan: No Family History Cardiovascular disease 19 FATHER Hypertension 19 FATHER Heart Disease, Cancer, Hypertension Review of Systems Constitutional: see HPI, dizziness, malaise, weakness Gastrointestinal: loss of appetite, nausea, vomiting Physical Exam Physical Exam Vital Signs Vital Signs - First Documented 03/18/20 03/18/20 20:02 22:30 Temp 37.9 Pulse 127 Resp 21 B/P (MAP) 89/49 (62) Pulse Ox 100 O2 Delivery Room Air Capillary Refill : NONE Height, Weight, BMI Height: 5'11.00" Weight: 126lbs. 0.0oz. 57.268390wh; 16.88 BMI Method:Stated General Appearance: No Apparent Distress, WD/WN, Chronically ill, Thin Eyes: Right Eye Normal Inspection, Right Eye PERRL HEENT: PERRL/EOMI, Normal ENT Inspection, Pharynx Normal, Moist Mucous Membranes Neck: Full Range of Motion, Normal Inspection, Non Tender Respiratory: Chest Non Tender, Lungs Clear, Normal Breath Sounds, No Accessory Muscle Use, No Respiratory Distress Cardiovascular: Regular Rate, Rhythm, No Edema, No Gallop, No JVD, No Murmur, Normal Peripheral Pulses Gastrointestinal: Normal Bowel Sounds, No Organomegaly, No Pulsatile Mass, Non Tender, Soft Back: Normal Inspection, No CVA Tenderness, No Vertebral Tenderness Extremity: Normal Capillary Refill, Normal Inspection, Normal Range of Motion, Non Tender, No Calf Tenderness, No Pedal Edema Neurologic/Psychiatric: Alert, Oriented x3, No Motor/Sensory Deficits, Normal Mood/Affect Skin: Normal Color, Warm/Dry Lymphatic: No Adenopathy Results Results/Procedures Labs Laboratory Tests 03/18/20 20:06 03/18/20 23:21 03/19/20 00:39 03/19/20 02:50 03/19/20 05:28 03/19/20 10:10 03/19/20 14:30 Patient resulted labs reviewed. Assessment/Plan Admission Diagnosis Assessment: DKA Tachycardia Dehydration Hypokalemia Plan: Insulin drip transition to SQ once HCO3 normal IVF Admission Status: Inpatient Order (span 2 midnights) Reason for Inpatient Admission: dka Diagnosis/Problems Diagnosis/Problems (1) Diabetic ketoacidosis Status: Acute Qualifiers: Diabetes mellitus type: type 1 Diabetes mellitus complication detail: without coma Qualified Codes: E10.10 - Type 1 diabetes mellitus with ketoacidosis without coma Clinical Quality Measures AMI/AHF: ASA po Prior to arrival: No DVT/VTE Risk/Contraindication: Risk Factor Score Per Nursin RFS Level Per Nursing on Admit: 2=Moderate LORE KNIGHT DO Mar 19, 2020 07:02
[2020-03-19] MEDS ORDERED: ENOXAPARIN 40 MG/0.4 ML (LOVENOX) SYR SC SCH (09:00)
[2020-03-19 10:28] LABS: CHLORIDE 108 MMOL/L (98-107); POTASSIUM 4.3 MMOL/L (3.6-5.0); SODIUM 136 MMOL/L (135-145)
[2020-03-19 10:29] LABS: CALCIUM 8.3 MG/DL (8.5-10.1)
[2020-03-19 10:30] LABS: GLUCOSE 201 MG/DL (70-105)
[2020-03-19 10:31] LABS: CARBON DIOXIDE 21 MMOL/L (21-32)
[2020-03-19 10:34] LABS: CREATININE SERUM 0.89 MG/DL (0.60-1.30); GFR ESTIMATED > 60
[2020-03-19 10:35] LABS: BUN/CREATININE RATIO 7
[2020-03-19] MEDS ORDERED: PROC10TA10 PO (11:29)
--- NOTE | 2020-03-19 11:29 | NUR ---
SPOKE WITH THE PT AND WENT THRU THE EXT MED HISTORY TO COMPLETE THE MED REC PT WAS HERE IN FEBRUARY 2020 AND I COMPLETED THE MED REC ON 03-03-2020- PT STATES HIS INSULIN DIRECTIONS HAVE NOT CHANGED SINCE HE WAS HERE. [facility] DAT[facility] THAT ARE LISTED ON THE MED REC OTC MEDS: NONE
--- NOTE | 2020-03-19 13:22 | NUR ---
RD ASSESSMENT PMHx: cardiomyopathy; DM(type 1) PT INTERACTION: Pt was awake and pleasant during nutrition assessment. Pt states current appetite is "so-so" and has been this way for the past few days. Note PO intake of 75% x1meal, per chart review. Pt states following a regular diet at home, and has no issues with chewing/swallowing food. Pt states some recent issues with nausea and vomiting. Pt states no recent issues with constipation or diarrhea, and that his last BM was 6/4. Note pt not currently on bowel regimen per chart review. Pt states some recent wt loss, but unsure of amount/timeframe. Note recent 9# wt loss x4mon, per chart review. Pt states current DM management is pretty good. Note recent admissions for DKA, and recent HbA1c of 8.6 on 03/02/20, per chart review. ABNORMAL NUTRITION-RELATED LAB VALUES LOW: Ca 7.7 HIGH: Cl 109; glu 179 Est. kcal needs: 7860-5854 kcal | 30-35 kcal/kg Est. Pro needs: 55-66 g Pro | 1.0-1.2 g Pro/kg PES STATEMENT: Inadequate oral intake (NI-2.1) related to loss of appetite | nausea | vomiting as evidenced by pt interview INTERVENTION: Continue with current diet order of CHO 60g/m 3snack diet. May need to discontinue supplementation order of avg PO intake is over 75%. Discussed and reinforced discussion on diet education for DM management from last admission. Pt verbalized understanding of information. Will continue to follow and reassess as pt needs, intake, and status change. MONITOR/EVALUATE: PO Intake; Plan of Care; Hydration Status; Weight Status; Lab Values Nohelia Allen, MS, RD, LD
[2020-03-19 14:47] LABS: BUN/CREATININE RATIO 6; CALCIUM 7.9 MG/DL (8.5-10.1); CARBON DIOXIDE 25 MMOL/L (21-32); CHLORIDE 110 MMOL/L (98-107); CREATININE SERUM 0.89 MG/DL (0.60-1.30); GFR ESTIMATED > 60; GLUCOSE 223 MG/DL (70-105); SODIUM 136 MMOL/L (135-145)
[2020-03-19] MEDS ORDERED: LOPERAMIDE 2 MG (IMODIUM) TABLET PO PRN (18:45)
[2020-03-19] MEDS: LORazepam INJ 2 MG/ML (ATIVAN) VIAL IV PRN (19:53)
--- NOTE | 2020-03-19 21:33 | NUR ---
NOTIFIED DR JOSÉ OF PT CURRENT LABS AND BLOOD SUGARS. OKAY TO GIVE 10 UNITS LEVEMIR, D/C GTT, ACCU CHECK Q4HR, SLIDING SCALE B. WILL CONTINUE TO MONITOR.
--- NOTE | 2020-03-19 21:34 | NUR ---
ORDER FROM DR JOSÉ TO MOVE PATIENT TO 4TH FLOOR ONCE OF INSULIN GTT
[2020-03-19] MEDS: METOCLOPRAMIDE INJ 10 MG/2 ML (REGLAN) IVP SCH (22:59)
[2020-03-20] VITALS: BP 136/85
[2020-03-20] MEDS: inSUlin ASPART (NovoLOG) 1 UNIT/0.01 ML (CHARGE PER UNIT) SC SCH ×4 (00:37→12:21)
[2020-03-20 01:15] VITALS: BP 162/95
--- NOTE | 2020-03-20 01:25 | NUR ---
ASSUMED CARE OF PT AT THIS TIME. PT ALERT AND ORIENTED ON RA. RESPIRATION EVEN AND UNLABORED. LUNG CLEAR TO AUSCULTATION. BELONGING AT BEDSIDE. PT ORIENTED TO CALL LIGHT AND BATHROOM. NO REQUEST AT THIS TIME WILL CONTINUE TO MONITOR.
[2020-03-20 04:00] VITALS: BP 110/70
[2020-03-20] MEDS: METOCLOPRAMIDE INJ 10 MG/2 ML (REGLAN) IVP SCH ×2 (05:35→13:17)
[2020-03-20 06:50] LABS: BASOPHILS % (AUTO) 0 % (0-10); EOSINOPHILS # (AUTO) 0.1 10^3/uL (0.0-0.3); EOSINOPHILS % (AUTO) 1 % (0-10); HEMATOCRIT 34 % (40-54); HEMOGLOBIN 11.7 G/DL (13.3-17.7); LYMPHOCYTES # (AUTO) 2.5 X 10^3 (1.0-4.0); LYMPHOCYTES % (AUTO) 26 % (12-44); MEAN CORPUSCULAR HEMOGLOBIN 29 PG (25-34); MEAN CORPUSCULAR HGB CONC 35 G/DL (32-36); MEAN CORPUSCULAR VOLUME 84 FL (80-99); MEAN PLATELET VOLUME 9.1 FL (7.4-10.4); MONOCYTES # (AUTO) 0.7 X 10^3 (0.0-1.0); MONOCYTES % (AUTO) 7 % (0-12); NEUTROPHILS # (AUTO) 6.4 X 10^3 (1.8-7.8); NEUTROPHILS % (AUTO) 66 % (42-75); PLATELET COUNT 277 10^3/uL (130-400); RED CELL DISTRIBUTION WIDTH 13.5 % (10.0-14.5); WHITE BLOOD COUNT 9.6 10^3/uL (4.3-11.0)
[2020-03-20 07:20] LABS: BUN/CREATININE RATIO 3; CALCIUM 8.7 MG/DL (8.5-10.1); CARBON DIOXIDE 28 MMOL/L (21-32); CHLORIDE 106 MMOL/L (98-107); CREATININE SERUM 0.67 MG/DL (0.60-1.30); GFR ESTIMATED > 60; MAGNESIUM 1.6 MG/DL (1.6-2.4); PHOSPHORUS 2.3 MG/DL (2.3-4.7); POTASSIUM 3.2 MMOL/L (3.6-5.0); SODIUM 139 MMOL/L (135-145)
[2020-03-20 07:24] LABS: GLUCOSE 44 MG/DL (70-105)
[2020-03-20 09:00] VITALS: BP 150/79
[2020-03-20] MEDS ORDERED: ENOXAPARIN 30 MG/0.3 ML (LOVENOX) SYR SC SCH (09:00)
--- NOTE | 2020-03-20 14:25 | Discharge Summary ---
Diagnosis/Chief Complaint Date of Admission Mar 18, 2020 at 21:48 Date of Discharge March 20, 2020 Discharge Date: Mar 20, 2020 Discharge Time: 18:00 Admission Diagnosis Assessment: DKA Tachycardia Dehydration Hypokalemia Plan: Insulin drip transition to SQ once HCO3 normal IVF Primary Care Reji Leiva Discharge Diagnosis Diabetic ketoacidosis Insulin-dependent diabetes Dehydration secondary to DKA Hypokalemia (1) Diabetic ketoacidosis Status: Acute Discharge Summary Discharge Physical Exam Allergies: Coded Allergies: Penicillins (Verified Allergy, Unknown, 05/23/06) Vitals & I&Os Vital Signs Date Time Temp Pulse Resp B/P (MAP) Pulse Ox O2 Delivery O2 Flow Rate FiO2 03/20/20 09:00 36.0 101 18 150/79 (102) 100 Room Air General Appearance: No Apparent Distress, WD/WN HEENT: Normal ENT Inspection Respiratory: Chest Non Tender, Lungs Clear, Normal Breath Sounds, No Accessory Muscle Use, No Respiratory Distress Cardiovascular: Regular Rate, Rhythm, No Gallop, No Murmur, Normal Peripheral Pulses Gastrointestinal: Normal Bowel Sounds, No Pulsatile Mass, Soft Extremity: Normal Capillary Refill, Non Tender, No Calf Tenderness Skin: Normal Color, Warm/Dry Neurologic/Psychiatric: Alert, Oriented x3, Normal Mood/Affect Hospital Course Was the Problem List Reviewed?: Yes This is a 29-year-old white male with very pruritic diabetes. He uses sliding scale insulin according to his carbohydrate intake. He had become ill one or 2 days prior to this presentation with some vomiting that did not respond to antibiotics. The patient was admitted in diabetic ketoacidosis with dehydration secondary to the DKA. He was aggressively hydrated and placed on insulin drip. His DKA resolved without incident. His beta hydroxybutyrate became normal and the patient is discharged eating well with continued labile blood sugars as before Labs (last 24 hrs) Laboratory Tests 03/19/20 14:30: Sodium Level 136, Potassium Level 4.0, Chloride Level 110H, Carbon Dioxide Level 25, Anion Gap 1L, Blood Urea Nitrogen 5L, Creatinine 0.89, Estimat Glomerular Filtration Rate > 60, BUN/Creatinine Ratio 6, Glucose Level 223H, Calcium Level 7.9L 03/19/20 15:00: Glucometer 188H 03/19/20 15:54: Glucometer 109 03/19/20 16:54: Glucometer 149H 03/19/20 17:58: Glucometer 284H 03/19/20 18:50: Glucometer 250H 03/19/20 19:49: Glucometer 174H 03/19/20 20:49: Glucometer 233H 03/19/20 21:53: Glucometer 195H 03/19/20 23:02: Glucometer 180H 03/19/20 23:55: Glucometer 145H 03/20/20 04:18: Glucometer 76 03/20/20 06:22: White Blood Count 9.6, Red Blood Count 4.01L, Hemoglobin 11.7L, Hematocrit 34L, Mean Corpuscular Volume 84, Mean Corpuscular Hemoglobin 29, Mean Corpuscular Hemoglobin Concent 35, Red Cell Distribution Width 13.5, Platelet Count 277, Mean Platelet Volume 9.1, Neutrophils (%) (Auto) 66, Lymphocytes (%) (Auto) 26, Monocytes (%) (Auto) 7, Eosinophils (%) (Auto) 1, Basophils (%) (Auto) 0, Neutrophils # (Auto) 6.4, Lymphocytes # (Auto) 2.5, Monocytes # (Auto) 0.7, Eosinophils # (Auto) 0.1, Basophils # (Auto) 0.0, Sodium Level 139, Potassium Level 3.2L, Chloride Level 106, Carbon Dioxide Level 28, Anion Gap 5, Blood Urea Nitrogen 2L, Creatinine 0.67, Estimat Glomerular Filtration Rate > 60, BUN/Creatinine Ratio 3, Glucose Level 44*L, Calcium Level 8.7, Phosphorus Level 2.3, Magnesium Level 1.6, Beta-Hydroxybutyrate (Chem panel) 0.26 03/20/20 08:15: Glucometer 301H 03/20/20 11:29: Glucometer 84 Microbiology 03/18/20 MRSA Screen - Final, Complete MRSA not isolated 03/18/20 Blood Culture - Preliminary, Resulted No growth Patient resulted labs reviewed. Pending Labs Laboratory Tests 03/20/20 06:22: White Blood Count 9.6, Red Blood Count 4.01, Hemoglobin 11.7, Hematocrit 34, Mean Corpuscular Volume 84, Mean Corpuscular Hemoglobin 29, Mean Corpuscular Hemoglobin Concent 35, Red Cell Distribution Width 13.5, Platelet Count 277, Mean Platelet Volume 9.1, Neutrophils (%) (Auto) 66, Lymphocytes (%) (Auto) 26, Monocytes (%) (Auto) 7, Eosinophils (%) (Auto) 1, Basophils (%) (Auto) 0, Arash trophils # (Auto) 6.4, Lymphocytes # (Auto) 2.5, Monocytes # (Auto) 0.7, Eosinophils # (Auto) 0.1, Basophils # (Auto) 0.0, Sodium Level 139, Potassium Level 3.2, Chloride Level 106, Carbon Dioxide Level 28, Anion Gap 5, Blood Urea Nitrogen 2, Creatinine 0.67, Estimat Glomerular Filtration Rate > 60, BUN/Creatinine Ratio 3, Glucose Level 44, Calcium Level 8.7, Phosphorus Level 2.3, Magnesium Level 1.6, Beta-Hydroxybutyrate (Chem panel) 0.26 03/20/20 08:15: Glucometer 301 03/20/20 11:29: Glucometer 84 Discussion & Recommendations Discharge Planning: <30 minutes discharge planning Discharge Home Medications: Active Scripts Active Reported Prochlorperazine Maleate 10 Mg Tablet 10 Mg PO TID PRN Novolog (Insulin Aspart) 100 Unit/1 Ml Susp 10-12 Unit SQ TIDAC USES 2 UNITS PER EVERY CARB LAST FILLED 12-30-2019 #2 VIALS Levemir (Insulin Determir) 1,000 Units/10 Ml Soln 10-17 Units SQ HS LAST FILLED 11-21-2019 #2 VIALS / 100 DAY SUPPLY Condition at discharge Stable Instructions to patient/family Please see electronic discharge instructions given to patient. Clinical Quality Measures AMI/AHF: ASA po Prior to arrival: No DVT/VTE Risk/Contraindication: Risk Factor Score Per Nursin RFS Level Per Nursing on Admit: 2=Moderate Copy Copies To 1: [facility] [place] Problem Qualifiers (1) Diabetic ketoacidosis: Diabetes mellitus type: type 1 Diabetes mellitus complication detail: without coma Qualified Codes: E10.10 - Type 1 diabetes mellitus with ketoacidosis without coma ERICK LYNN MD Mar 20, 2020 14:25
[2020-03-20 14:57] VITALS: BP 150/79
== END 2020-03-20 14:45 | disposition home or self-care (01) | DRG 638 ==
LOC: EDUNIT# 19:55 → ER 19:56 → ICU 21:48 → 4TH 03-20 01:27
PROVIDERS: ADMIT Internal Medicine; ATTEND Internal Medicine
DX: E10.10 Type 1 diabetes mellitus with ketoacidosis without coma (principal); E10.43 Type 1 diabetes mellitus with diabetic autonomic (poly)neuropathy; I42.9 Cardiomyopathy, unspecified; E86.0 Dehydration; E87.6 Hypokalemia; R00.0 Tachycardia, unspecified; Z79.4 Long term (current) use of insulin; Z87.891 Personal history of nicotine dependence
CPT/HCPCS: 36415; 36600; 71045; 80048; 80053; 80306; 81000; 82010; 82805; 82962; 83036; 83605; 83735; 83880; 84100; 84145; 84484; 85007; 85025; 85027; 85379; 87040; 87081; 93005

== ENCOUNTER 2020-06-15 21:13 | Inpatient (IN) | payer SELFPAY ==
[~2020-06-15] VITALS: Ht 180.3 cm; Wt 51.0 kg
[~2020-06-15 21:13] MED LIST changes: +PROC10TA10 PO
[2020-06-15] MEDS ORDERED: NS IV 1000 ML 1,000 ML IV SCH (21:42)
[2020-06-15] MEDS ORDERED: ONDANSETRON 4 MG/2 ML (SDV) Z0FRAN IVP ONE ×2 (21:45→22:30)
[2020-06-15 21:53] LABS: BASOPHILS % (AUTO) 0 % (0-10); EOSINOPHILS # (AUTO) 0.1 10^3/uL (0.0-0.3); EOSINOPHILS % (AUTO) 0 % (0-10); HEMATOCRIT 39 % (40-54); HEMOGLOBIN 13.6 G/DL (13.3-17.7); LYMPHOCYTES # (AUTO) 3.1 X 10^3 (1.0-4.0); LYMPHOCYTES % (AUTO) 22 % (12-44); MEAN CORPUSCULAR HEMOGLOBIN 28 PG (25-34); MEAN CORPUSCULAR HGB CONC 35 G/DL (32-36); MEAN CORPUSCULAR VOLUME 81 FL (80-99); MEAN PLATELET VOLUME 8.8 FL (7.4-10.4); MONOCYTES % (AUTO) 7 % (0-12); NEUTROPHILS # (AUTO) 9.8 X 10^3 (1.8-7.8); NEUTROPHILS % (AUTO) 70 % (42-75); PLATELET COUNT 320 10^3/uL (130-400); RED CELL DISTRIBUTION WIDTH 13.8 % (10.0-14.5)
[2020-06-15 22:03] LABS: ALBUMIN 3.9 GM/DL (3.2-4.5); CHLORIDE 98 MMOL/L (98-107); POTASSIUM 2.7 MMOL/L (3.6-5.0); SODIUM 137 MMOL/L (135-145)
[2020-06-15 22:04] LABS: AMYLASE 40 U/L (25-125); CALCIUM 9.4 MG/DL (8.5-10.1)
[2020-06-15 22:05] LABS: GLUCOSE 161 MG/DL (70-105); TOTAL PROTEIN 6.6 GM/DL (6.4-8.2)
[2020-06-15 22:07] LABS: BILIRUBIN,TOTAL 0.6 MG/DL (0.1-1.0); CARBON DIOXIDE 20 MMOL/L (21-32)
--- NOTE | 2020-06-15 22:07 | ED General ---
General Chief Complaint: Glucose Problems Stated Complaint: VOMITING;FATIGUE;RAPID PULSE;SOA Nursing Triage Note: PT AMBULATE TO ROOM 06 WITH C/O GLUCOSE PROBLEMS. PT STATES HIS GLUCOSE HAS BEEN AROUND 250 TODAY AND HE THINKS HE IS IN DKA. PT REPORTS N/V TODAY WITH HE STATES HAPPENS IN DKA. Nursing Sepsis Screen: No Definite Risk Source of Information: Patient History of Present Illness Date Seen by Provider: Jun 15, 2020 Time Seen by Provider: 21:38 Initial Comments PT ARRIVES VIA POV FROM HOME PT STATES "THINK I'M IN DKA" DX AT AGE 11 WITH TYPE 1 DIABETES HAS HAD MULTIPLE EPISODES OF DKA, THE LAST TIME WAS 03/18/2020 STATES HE HAS HAD NAUSEA/VOMITING SINCE YESTERDAY--VOMITED APPROXIMATELY 10 TIMES TODAY AND CANNOT KEEP ANYTHING DOWN NO ABDOMINAL PAIN NO DIARRHEA NO FEVER HAS NOT URINATED SINCE YESTERDAY STATES HE HAS BEEN VERY FATIGUED TODAY AND HIS HEART RATE HAS BEEN FAST AND HAS FELT A LITTLE SHORT OF BREATH BLOOD SUGAR HAS BEEN IN THE 250'S TODAY AND TOOK INSULIN JUST PRIOR TO ARRIVAL NORMALLY TAKES REGULAR INSULIN ON SLIDING SCALE OF 2 UNITS/CARB, IN ADDITION TO 10 UNITS OF LEVEMIR AT HS NO KNOWN SICK CONTACTS OR KNOWN EXPOSURE TO COVID-19 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 Allergies and Home Medications Allergies Coded Allergies: Penicillins (Verified Allergy, Unknown, 05/23/06) Home Medications Insulin Aspart 100 Unit/1 Ml Susp, 10-12 UNIT SQ TIDAC, (Reported) USES 2 UNITS PER EVERY CARB LAST FILLED 12-30-2019 #2 VIALS Insulin Determir 1,000 Units/10 Ml Soln, 10-17 UNITS SQ HS, (Reported) LAST FILLED 11-21-2019 #2 VIALS / 100 DAY SUPPLY Prochlorperazine Maleate 10 Mg Tablet, 10 MG PO TID PRN for NAUSEA/VOMITING-2ND LINE, (Reported) Patient Home Medication List Home Medication List Reviewed: Yes Review of Systems Review of Systems Constitutional: No chills, No diaphoresis, No dizziness, No fever; malaise, weakness EENTM: no symptoms reported Respiratory: see HPI; No cough; short of breath Cardiovascular: see HPI, other (FAST HEART RATE) Gastrointestinal: see HPI; No abdominal pain, No constipation, No diarrhea; loss of appetite, nausea, vomiting Genitourinary: see HPI, decreased output Musculoskeletal: no symptoms reported Skin: no symptoms reported Psychiatric/Neurological: No Symptoms Reported; Denies Headache Hematologic/Lymphatic: No Symptoms Reported Immunological/Allergic: no symptoms reported Past Buatbcf-Fsmcgx-Nzwvnr Hx Past Med/Social Hx: Reviewed and Corrections made Patient Social History Alcohol Use: Denies Use Recreational Drug Use: Yes (THC) Drug of Choice: MARIJUANA Smoking Status: Former Smoker (QUIT 2012 < 1 PPD) Type Used: Cigarettes Former Smoker, Quit: Sep 28, 2012 2nd Hand Smoke Exposure: No Recent Foreign Travel: No Contact w/Someone Who Travel: No Recent Infectious Disease Expo: No Recent Hopitalizations: No Physical Abuse: No Sexual Abuse: No Mistreated: No Fear: No Immunizations Up To Date Tetanus Booster (TDap): Unknown PED Vaccines UTD: No Date of Pneumonia Vaccine: Sep 15, 2017 Date of Influenza Vaccine: Sep 15, 2019 Seasonal Allergies Seasonal Allergies: No Past Medical History Surgeries: No Respiratory: Yes Pneumonia Currently Using CPAP: No Currently Using BIPAP: No Cardiac: Yes (CARDIOMYOPATHY DX 2016) Cardiomyopathy Neurological: No Reproductive Disorders: No Sexually Transmitted Disease: No HIV/AIDS: No Genitourinary: No Gastrointestinal: Yes (GASTROPARESIS) Musculoskeletal: No Endocrine: Yes (DX AGE 11, [place] 2001; MULTIPLE ADMITS FOR DKA) Diabetes, Insulin dep Cancer: No Did You Recieve Any Treatments: No Psychosocial: No Integumentary: Yes (WOUNDS TO LOWER LEGS-- REQUIRED WOUND CARE CLINIC TREATMENT) Blood Disorders: No Adverse Reaction/Blood Tranf: No Family Medical History Cardiovascular disease 19 FATHER Hypertension 19 FATHER Heart Disease, Cancer, Hypertension Physical Exam Vital Signs Vital Signs - First Documented 06/15/20 06/16/20 21:27 00:06 Temp 36.8 Pulse 111 Resp 17 B/P (MAP) 165/103 (123) Pulse Ox 100 O2 Delivery Room Air Capillary Refill : Less Than 3 Seconds Height, Weight, BMI Height: 5'11.00" Weight: 126lbs. 0.0oz. 57.725630mk; 17.00 BMI Method:Stated General Appearance: No Apparent Distress, Thin, Other (LETHARGIC) HEENT: PERRL/EOMI, Other (ORAL MUCOSA SLIGHTLY DRY) Neck: Normal Inspection Respiratory: Normal Breath Sounds, No Accessory Muscle Use, No Respiratory Distress Cardiovascular: No Edema, No JVD, No Murmur, Normal Peripheral Pulses, Tachycardia (100-105) Gastrointestinal: Normal Bowel Sounds, No Organomegaly, No Pulsatile Mass, Non Tender, Soft Back: Normal Inspection Extremity: Normal Inspection Neurologic/Psychiatric: Alert, Oriented x3, No Motor/Sensory Deficits, cuff turner II- XII Norm as Tested Skin: Warm/Dry, Pallor Progress/Results/Core Measures Suspected Sepsis Recent Fever Within 48 Hours: No Infection Criteria Present: None New/Unexplained Altered Menta: No Sepsis Screen: No Definite Risk SIRS Temperature: Pulse: 111 Respiratory Rate: 17 Laboratory Tests 06/15/20 21:41: White Blood Count 14.0H Blood Pressure 165 /103 Mean: 123 Laboratory Tests 06/15/20 21:41: Creatinine 0.88, Platelet Count 320, Total Bilirubin 0.6 Results/Orders Lab Results Laboratory Tests Test 06/15/20 21:30 06/15/20 21:41 06/15/20 22:18 06/15/20 22:44 Range/Units Glucometer 144 H 70-110 MG/DL White Blood Count 14.0 H 4.3-11.0 10^3/uL Red Blood Count 4.82 4.35-5.85 10^6/uL Hemoglobin 13.6 13.3-17.7 G/DL Hematocrit 39 L 40-54 % Mean Corpuscular Volume 81 80-99 FL Mean Corpuscular Hemoglobin 28 25-34 PG Mean Corpuscular Hemoglobin Concent 35 32-36 G/DL Red Cell Distribution Width 13.8 10.0-14.5 % Platelet Count 320 130-400 10^3/uL Mean Platelet Volume 8.8 7.4-10.4 FL Neutrophils (%) (Auto) 70 42-75 % Lymphocytes (%) (Auto) 22 12-44 % Monocytes (%) (Auto) 7 0-12 % Eosinophils (%) (Auto) 0 0-10 % Basophils (%) (Auto) 0 0-10 % Neutrophils # (Auto) 9.8 H 1.8-7.8 X 10^3 Lymphocytes # (Auto) 3.1 1.0-4.0 X 10^3 Monocytes # (Auto) 1.0 0.0-1.0 X 10^3 Eosinophils # (Auto) 0.1 0.0-0.3 10^3/uL Basophils # (Auto) 0.0 0.0-0.1 10^3/uL Neutrophils % (Manual) 66 % Lymphocytes % (Manual) 23 % Monocytes % (Manual) 11 % Eosinophils % (Manual) 0 % Basophils % (Manual) 0 % Band Neutrophils 0 % Anisocytosis SLIGHT Rouleau SLIGHT Sodium Level 137 135-145 MMOL/L Potassium Level 2.7 L 3.6-5.0 MMOL/L Chloride Level 98 98-107 MMOL/L Carbon Dioxide Level 20 L 21-32 MMOL/L Anion Gap 19 H 5-14 MMOL/L Blood Urea Nitrogen 8 7-18 MG/DL Creatinine 0.88 0.60-1.30 MG/DL Estimat Glomerular Filtration Rate > 60 BUN/Creatinine Ratio 9 Glucose Level 161 H 70-105 MG/DL Calcium Level 9.4 8.5-10.1 MG/DL Corrected Calcium 9.5 8.5-10.1 MG/DL Magnesium Level 1.8 1.6-2.4 MG/DL Total Bilirubin 0.6 0.1-1.0 MG/DL Aspartate Amino Transf (AST/SGOT) 18 5-34 U/L Alanine Aminotransferase (ALT/SGPT) 23 0-55 U/L Alkaline Phosphatase 79 40-136 U/L Total Protein 6.6 6.4-8.2 GM/DL Albumin 3.9 3.2-4.5 GM/DL Amylase Level 40 25-125 U/L Lipase 16 8-78 U/L Beta-Hydroxybutyrate (Chem panel) 3.63 H 0.00-0.27 MMOL/L Urine Color YELLOW Urine Clarity CLEAR Urine pH 6.0 5-9 Urine Specific [place] 1.015 L 1.016-1.022 Urine Protein NEGATIVE NEGATIVE Urine Glucose (UA) 3+ H NEGATIVE Urine Ketones 3+ H NEGATIVE Urine Nitrite NEGATIVE NEGATIVE Urine Bilirubin 2+ H NEGATIVE Urine Urobilinogen 0.2 < = 1.0 MG/DL Urine Leukocyte Esterase NEGATIVE NEGATIVE Urine RBC (Auto) 2+ H NEGATIVE Urine RBC 5-10 H /HPF Urine WBC 0-2 /HPF Urine Squamous Epithelial Cells RARE /HPF Urine Crystals NONE /LPF Urine Bacteria NEGATIVE /HPF Urine Casts NONE /LPF Urine Mucus SMALL H /LPF Urine Culture Indicated NO Urine Opiates Screen NEGATIVE NEGATIVE Urine Oxycodone Screen NEGATIVE NEGATIVE Urine Methadone Screen NEGATIVE NEGATIVE Urine Propoxyphene Screen NEGATIVE NEGATIVE Urine Barbiturates Screen NEGATIVE NEGATIVE Ur Tricyclic Antidepressants Screen NEGATIVE NEGATIVE Urine Phencyclidine Screen NEGATIVE NEGATIVE Urine Amphetamines Screen NEGATIVE NEGATIVE Urine Methamphetamines Screen NEGATIVE NEGATIVE Urine Benzodiazepines Screen NEGATIVE NEGATIVE Urine Cocaine Screen NEGATIVE NEGATIVE Urine Cannabinoids Screen POSITIVE H NEGATIVE Blood Gas Puncture Site RIGHT RADIAL Blood Gas Patient Temperature 37.1 Arterial Blood pH 7.47 H 7.37-7.43 Arterial Blood Partial Pressure CO2 34 L 35-45 MMHG Arterial Blood Partial Pressure O2 112 H 79-93 MMHG Arterial Blood HCO3 24 23-27 MMOL/L Arterial Blood Total CO2 25.3 21.0-31.0 MMOL/L Arterial Blood Oxygen Saturation 99 94-100 % Arterial Blood Base Excess 1.0 -2.5-2.5 MMOL/L Bony Test POSITIVE Blood Gas Ventilator Setting NO Blood Gas Inspired Oxygen RA My Orders Orders - NICOL SUÁREZ DO Accucheck Stat ONCE (06/15/20 21:37) Ed Iv/Invasive Line Start (06/15/20 21:37) Amylase (06/15/20 21:37) Cbc With Automated Diff (06/15/20 21:37) Comprehensive Metabolic Panel (06/15/20 21:37) Drug Screen Stat (Urine) (06/15/20 21:37) Magnesium (06/15/20 21:37) Ua Culture If Indicated (06/15/20 21:37) Chest 1 View, Ap/Pa Only (06/15/20 21:37) Ondansetron Injection (Zofran Injectio (06/15/20 21:45) Ed Iv/Invasive Line Start (06/15/20 21:42) Ns Iv 1000 Ml (Sodium Chloride 0.9%) (06/15/20 21:42) Beta Hydroxybutyrate (06/15/20 21:42) Lipase (06/15/20 21:42) Manual Differential (06/15/20 21:41) Arterial Blood Gas (06/15/20 22:24) Ns W/Kcl 40 Meq/L (Ns Iv W/Kcl 40 Meq/L) (06/15/20 22:30) Scopolamine Patch (Transderm-Scop Patch) (06/15/20 22:30) Ondansetron Injection (Zofran Injectio (06/15/20 22:30) Promethazine Injection (Phenergan Injec (06/15/20 23:30) Diphenhydramine Injection (Benadryl Inje (06/15/20 23:30) Medications Given in ED Current Medications Medications Dose Ordered Sig/Luis Route Start Time Stop Time Status Last Admin Dose Admin Ondansetron HCl 4 mg ONCE ONCE IVP 06/15/20 21:45 06/15/20 21:46 DC 06/15/20 21:58 4 MG Ondansetron HCl 8 mg ONCE ONCE IVP 06/15/20 22:30 06/15/20 22:31 DC 06/15/20 22:39 8 MG Scopolamine 1.5 mg ONCE ONCE TD 06/15/20 22:30 06/15/20 22:31 DC 06/15/20 22:39 1.5 MG Vital Signs/I&O 06/15/20 06/16/20 21:27 00:06 Temp 36.8 Pulse 111 112 Resp 17 18 B/P (MAP) 165/103 (123) 163/103 Pulse Ox 100 O2 Delivery Room Air Room Air 06/16/20 00:00 Intake Total 1000 ml Balance 1000 ml Capillary Refill : Less Than 3 Seconds Blood Pressure Mean: 123 Point of Care Testing Finger Stick Blood Glucose: 144 Progress Note : Progress Note ACCUCHECK 144 ON ARRIVAL GIVEN IV FLUIDS AND ZOFRAN AND SCOPOLAMINE PATCH--NAUSEA IMPROVED 2330--PT BEGINNING TO VOMIT AGAIN--PHENERGAN + BENADRYL GIVEN WITH IMPROVEMENT AND NO FURTHER VOMITING DURING ER STAY Diagnostic Imaging Comments CXR--PER RADIOLOGIST REPORT AT 2210 NDICATION: Diabetic patient with hyperglycemia and nausea and vomiting. Frontal chest obtained at 0946 p.m. and compared to 03/18/2020. Heart and mediastinal silhouette are normal in appearance. The lungs appear clear. There is no pneumothorax or pleural fluid. IMPRESSION: No acute process in the chest. Reviewed: Reviewed by Me Departure Communication (Admissions) [id number]--CALLED/SPOKE WITH DR. FERMIN. ACCEPTS PT FOR ADMIT Impression Primary Impression: IDDM (insulin dependent diabetes mellitus) Additional Impressions: Type 1 diabetes Intractable nausea and vomiting Hypokalemia CHRONIC MARIJUANA USE Volume depletion Disposition: ADMITTED INPATIENT Condition: Improved Admissions Decision to Admit Reason: Admit from ER (General) Decision to Admit/Date: Jun 15, 2020 Time/Decision to Admit Time: 23:00 Departure-Patient Inst. Referrals: HILARIO FISHMAN DO (PCP) Primary Care Physician EMIL TORRES (Family) Primary Care Physician NICOL SUÁREZ DO Jun 15, 2020 22:07
[2020-06-15 22:09] LABS: ALKALINE PHOSPHATASE 79 U/L (40-136); CREATININE SERUM 0.88 MG/DL (0.60-1.30); GFR ESTIMATED > 60
[2020-06-15 22:10] LABS: BUN/CREATININE RATIO 9
[2020-06-15 22:11] LABS: ANISOCYTOSIS SLIGHT; BAND NEUTROPHILS 0 %; BASOPHILS % (MANUAL) 0 %; EOSINOPHILS % (MANUAL) 0 %; LYMPHOCYTES % (MANUAL) 23 %; MONOCYTES % (MANUAL) 11 %; NEUTROPHILS % (MANUAL) 66 %
[2020-06-15 22:12] LABS: ALANINE AMINOTRANSFERASE 23 U/L (0-55); MAGNESIUM 1.8 MG/DL (1.6-2.4); ROULEAUX SLIGHT
[2020-06-15 22:13] LABS: LIPASE 16 U/L (8-78)
[2020-06-15 22:26] LABS: CLARITY,URINE CLEAR; COLOR,URINE YELLOW; GLUCOSE, URINE (UA) 3+ (NEGATIVE); KETONES,URINE 3+ (NEGATIVE); LEUKOCYTE ESTERASE ,URINE NEGATIVE (NEGATIVE); NITRITE,URINE NEGATIVE (NEGATIVE); PROTEIN,URINE NEGATIVE (NEGATIVE)
[2020-06-15] MEDS ORDERED: NS W/KCL 40 MEQ/L 1,000 ML IV SCH (22:30)
[2020-06-15] MEDS ORDERED: SCOPOLAMINE 1.5 MG (TRANSDERM-SCOP) PATCH TD ONE (22:30)
[2020-06-15 22:36] LABS: BILIRUBIN,URINE 2+ (NEGATIVE)
[2020-06-15 22:37] LABS: BACTERIA,URINE NEGATIVE /HPF; SQUAMOUS EPITHELIAL CELL,UR RARE /HPF
[2020-06-15 22:38] LABS: WBC,URINE 0-2 /HPF
[2020-06-15 22:49] LABS: BENZODIAZEPINES SCREEN URINE NEGATIVE (NEGATIVE)
[2020-06-15 22:50] LABS: ABG OXYGEN SATURATION 99 % (94-100); ABG PCO2 34 MMHG (35-45); ABG PH 7.47 (7.37-7.43); ABG PO2 112 MMHG (79-93); ABG TCO2 25.3 MMOL/L (21.0-31.0)
[2020-06-15 22:50] LABS: AMPHETAMINE SCREEN, URINE NEGATIVE (NEGATIVE); BARBITURATE SCREEN URINE NEGATIVE (NEGATIVE); CANNABINOID SCREEN, URINE POSITIVE (NEGATIVE); COCAINE SCREEN URINE NEGATIVE (NEGATIVE); METHADONE STAT NEGATIVE (NEGATIVE); METHAMPHETAMINE SCREEN URINE S NEGATIVE (NEGATIVE); OPIATE SCREEN URINE NEGATIVE (NEGATIVE); OXYCODONE STAT NEGATIVE (NEGATIVE); PROPOXYPHENE STAT NEGATIVE (NEGATIVE); TRICYCLIC ANTIDEPRESSANTS SCRE NEGATIVE (NEGATIVE)
[2020-06-15 22:52] LABS: ALLENS TEST POSITIVE; INSPIRED O2 RA; PATIENT TEMP 37.1; VENTILATOR NO
[2020-06-15] MEDS ORDERED: PROMETHAZINE INJ 25 MG/ML (PHENERGAN) AMP IVP ONE (23:30)
[2020-06-15] MEDS ORDERED: diphenhydrAMINE 50 MG/ML INJ (BENADRYL) IVP ONE (23:30)
[2020-06-16] VITALS (18 sets, daily range): BP systolic 80–180; BP diastolic 41–109
--- NOTE | 2020-06-16 00:29 | NUR ---
CHEMO WEISS admitted to room 412-1, with an admitting diagnosis of UNCONTROLLED IDDM, INTRACTABLE N/V, CHRONIC MARIJUANA USE, on 06/15/20 from ED via WHEELCHAIR, accompanied by ED STAFF.CHEMO WEISS introduced to surroundings, call light, bed controls, phone, TV, temperature control, lights, meal times, smoking policy, visitor policy, side rail policy, bathrooms and showers. Patient Rights given to patient in the handbook. CHEMO WEISS verbalizes understanding that [facility] is not responsible for the loss or damage to any personal effects or valuables that are kept in the patients possession during their hospitalization. CHEMO WEISS verbalizes understanding of Interdisciplinary Patient Education. Patient and/or family were informed about the Rapid Response Team and its purpose.
[2020-06-16] MEDS ORDERED: diphenhydrAMINE 50 MG/ML INJ (BENADRYL) IV PRN (00:30)
[2020-06-16] MEDS: NS W/KCL 40 MEQ/L 1,000 ML IV SCH ×6 (01:06→20:59)
--- NOTE | 2020-06-16 03:07 | NUR ---
PT CONTINUES TO HAVE UNCONTROLLED NAUSEA AND VOMITING. BLOOD SUGAR HAS INCREASED FROM 144 TO 266. JENY NOTIFIED OF ALL THE ABOVE. JENY ALSO NOTIFIED OF PT'S CONTINUED TACHYCARDIA RANGING BETWEEN 130-140 WELL PT REPORT OF BEING UNABLE TO EAT FOR THE PAST 2 DAYS. NEW ORDERS FOR PHENERGAN 25MG IV X1 NOW, BENADRYL 50MG IV X1 NOW, 40MEQ POTASSIUM IV NOW, FOLLOWED BY 40MEQ POTASSIUM IV AT 0715. JENY CONTACTED AGAIN AT 0310 REQUESTING Q4H ACCU CHECKS AND SLIDING SCALE. NEW ORDERS RECEIVED TO START Q4 ACCU CHECKS, CHANGE TO SS B Q4H.
[2020-06-16] MEDS ORDERED: diphenhydrAMINE 50 MG/ML INJ (BENADRYL) IVP ONE (03:15)
[2020-06-16] MEDS ORDERED: PROMETHAZINE INJ 25 MG/ML (PHENERGAN) AMP IVP ONE (03:15)
[2020-06-16] MEDS: POTASSIUM CL 10MEQ/50ML IVPB 50 ML IV SCH ×10 (03:26→23:01)
[2020-06-16] MEDS ORDERED: inSUlin ASPART (NovoLOG) 1 UNIT/0.01 ML (CHARGE PER UNIT) SC SCH ×2 (04:00→06:00)
[2020-06-16 05:14] LABS: BASOPHILS % (AUTO) 0 % (0-10); EOSINOPHILS % (AUTO) 0 % (0-10); HEMATOCRIT 37 % (40-54); HEMOGLOBIN 12.7 G/DL (13.3-17.7); LYMPHOCYTES # (AUTO) 0.8 X 10^3 (1.0-4.0); LYMPHOCYTES % (AUTO) 6 % (12-44); MEAN CORPUSCULAR HEMOGLOBIN 28 PG (25-34); MEAN CORPUSCULAR HGB CONC 34 G/DL (32-36); MEAN CORPUSCULAR VOLUME 83 FL (80-99); MONOCYTES # (AUTO) 0.6 X 10^3 (0.0-1.0); MONOCYTES % (AUTO) 4 % (0-12); NEUTROPHILS # (AUTO) 12.5 X 10^3 (1.8-7.8); NEUTROPHILS % (AUTO) 90 % (42-75); PLATELET COUNT 284 10^3/uL (130-400)
[2020-06-16 05:31] LABS: ALBUMIN 3.7 GM/DL (3.2-4.5)
[2020-06-16 05:32] LABS: CHLORIDE 107 MMOL/L (98-107); POTASSIUM 4.2 MMOL/L (3.6-5.0); SODIUM 138 MMOL/L (135-145)
[2020-06-16 05:33] LABS: CALCIUM 8.6 MG/DL (8.5-10.1)
[2020-06-16 05:34] LABS: GLUCOSE 245 MG/DL (70-105); TOTAL PROTEIN 6.2 GM/DL (6.4-8.2)
[2020-06-16 05:35] LABS: CARBON DIOXIDE 12 MMOL/L (21-32)
[2020-06-16 05:36] LABS: BILIRUBIN,TOTAL 0.5 MG/DL (0.1-1.0)
[2020-06-16 05:38] LABS: ALKALINE PHOSPHATASE 75 U/L (40-136); CREATININE SERUM 0.86 MG/DL (0.60-1.30)
[2020-06-16 05:39] LABS: BUN/CREATININE RATIO 10
[2020-06-16 05:41] LABS: ALANINE AMINOTRANSFERASE 23 U/L (0-55)
[2020-06-16] MEDS: inSUlin ASPART (NovoLOG) 1 UNIT/0.01 ML (CHARGE PER UNIT) SC SCH ×2 (05:46→08:59)
[2020-06-16 05:47] LABS: GFR ESTIMATED > 60
[2020-06-16] MEDS ORDERED: NS IV 1000 ML 1,000 ML ONE (07:59)
--- NOTE | 2020-06-16 08:02 | NUR ---
CALLED DR FERMIN: BLOOD SUGAR 456 HEART RATE 146 RESPIRATIONS 44 BLOOD PRESSURE 80/41 TRANSFER TO ICU TO START INSULIN DRIP GIVE 1 LITER BOLUS NORMAL SALINE NOW GET LACTIC ACID AND START ZOSYN
--- NOTE | 2020-06-16 08:08 | NUR ---
PATIENT TRANSFERRED TO ICU7 BY WHEELCHAIR ACCOMPANIED BY THIS RN AND PCT ANA. BEDSIDE REPORT GIVEN TO [employer]OLDS CAMILO.
[2020-06-16] MEDS ORDERED: PIPERACILLIN/TAZOBACTAM (BULK) 4.5 GM in NS (IVPB) 100 ML IV SCH (08:15)
[2020-06-16] MEDS ORDERED: NS IV 1000 ML 1,000 ML IV SCH (08:15)
[2020-06-16] MEDS ORDERED: D5 1/2 NS 1000 ML IV SOLUTION 1,000 ML IV ONE (08:30)
[2020-06-16] MEDS ORDERED: 1/2 NS IV SOLUTION 1,000 ML IV ONE (08:30)
[2020-06-16] MEDS ORDERED: POTASSIUM CL 10MEQ/50ML IVPB 50 ML IV SCH (08:45)
[2020-06-16] MEDS: ONDANSETRON 4 MG/2 ML (SDV) Z0FRAN IV PRN (08:51)
[2020-06-16 08:54] LABS: HEMOGLOBIN 11.1 G/DL (13.3-17.7); MEAN PLATELET VOLUME 9.9 FL (7.4-10.4); RED CELL DISTRIBUTION WIDTH 13.9 % (10.0-14.5)
[2020-06-16 08:59] LABS: CHLORIDE 98 MMOL/L (98-107); POTASSIUM 6.1 MMOL/L (3.6-5.0); SODIUM 129 MMOL/L (135-145)
[2020-06-16] MEDS: 1/2 NS IV SOLUTION 1,000 ML IV SCH ×4 (09:01→20:59)
--- NOTE | 2020-06-16 09:04 | NUR ---
THIS NURSE NOTIFIED DR FERMIN PT HAS ALLERGY TO PNC. PT STATES HE GETS A RASH ALL OVER. THIS NURSE NOTIFIED DR JENY ART WAS ORDERED. ORDER GIVEN TO DC ZOSYN AND START ROCEPHIN. PT STATES HE HAS NOT TAKEN ROCEPHIN BEFORE. SEE ORDER HX. WILL CONTINUE TO MONITOR.
[2020-06-16 09:05] LABS: CREATININE SERUM 1.15 MG/DL (0.60-1.30); GFR ESTIMATED > 60
[2020-06-16 09:06] LABS: BUN/CREATININE RATIO 10
[2020-06-16] MEDS: PROMETHAZINE INJ 25 MG/ML (PHENERGAN) AMP IV PRN ×2 (09:20→20:33)
[2020-06-16 09:35] LABS: CARBON DIOXIDE 6 MMOL/L (21-32); GLUCOSE 639 MG/DL (70-105)
[2020-06-16] MEDS ORDERED: CALCIUM GLUCONATE 10% INJ 4.65 MEQ in NS (IVPB) 50 ML IV ONE (09:45)
[2020-06-16] MEDS ORDERED: SODIUM BICARB 8.4% 50 MEQ/50 ML VIAL IV ONE (09:45)
--- NOTE | 2020-06-16 09:47 | NUR ---
THIS NURSE NOTIFIED EICU OF POTASSIUM LAB AND THAT THIS NURSE HELD THE 40 MEQ ORDERED THIS MORNING. PT IS STILL TACHY IN THE 140S-150S. SBP HAS BEEN IN 80-90S. PT IS GETTING A BOLUS RIGHT NOW. ORDER GIVEN FOR CALCIUM GLUCONATE AND SODIUM BICARBONATE. PT IS TO GET LAB REDRAWS IN ABOUT 30 MINS. WILL CONTINUE TO MONITOR.
--- NOTE | 2020-06-16 09:49 | NUR ---
THIS NURSE NOTIFIED DR FERMIN LACTIC ACID WAS 3.46. NO NEW ORDERS AT THIS TIME.
[2020-06-16] MEDS: PANTOPRAZOLE 40 MG (PROTONIX) VIAL IV SCH (10:08)
[2020-06-16] MEDS: cefTRIAXone FOR IV USE 1,000 MG in WATER (STERILE) FOR INJECTION 10 ML IV SCH (10:09)
[2020-06-16 10:35] LABS: BILIRUBIN,URINE NEGATIVE (NEGATIVE); CLARITY,URINE CLEAR; COLOR,URINE YELLOW; GLUCOSE, URINE (UA) 3+ (NEGATIVE); KETONES,URINE 3+ (NEGATIVE); LEUKOCYTE ESTERASE ,URINE NEGATIVE (NEGATIVE); NITRITE,URINE NEGATIVE (NEGATIVE); PH,URINE 5.5 (5-9); PROTEIN,URINE NEGATIVE (NEGATIVE)
[2020-06-16 10:53] LABS: BACTERIA,URINE NEGATIVE /HPF; WBC,URINE 0-2 /HPF
[2020-06-16 11:01] LABS: BUN/CREATININE RATIO 11; CALCIUM 8.6 MG/DL (8.5-10.1); CARBON DIOXIDE 10 MMOL/L (21-32); CHLORIDE 103 MMOL/L (98-107); CREATININE SERUM 1.05 MG/DL (0.60-1.30); GFR ESTIMATED > 60; GLUCOSE 342 MG/DL (70-105); POTASSIUM 4.7 MMOL/L (3.6-5.0); SODIUM 134 MMOL/L (135-145)
--- NOTE | 2020-06-16 11:10 | NUR ---
THIS NURSE NOTIFIED DR FERMIN PT LACTIC ACID REDRAW WAS 2.37. NO NEW ORDERS AT THIS TIME. THIS NURSE ALSO NOTIFIED DR FERMIN PT POTASSIUM LEVEL WENT FROM 6.1 TO 4.7. THIS NURSE HELD 40MEQ OF POTASSIUM ORDERED LAST NIGHT. ORDER GIVEN TO DC ORDER AND START POTASSIUM PER DKA PROTOCOL AT 5 MEQ/HR. THIS NURSE ALSO NOTIFIED DR FERMIN OF LAB RESULT AND PT DVT SCORE WAS 2. PT IS WEARING SCDS. NO NEW ORDERS AT THIS TIME WILL CONTINUE TO MONITOR.
--- NOTE | 2020-06-16 11:34 | NUR ---
SPOKE WITH THE PT AND CALLED [facility] TO COMPLETE THE MED REC LEVEMIR VIAL LAST FILLED ON 11-21-2019 #2VIALS/200DS - I DID DOCUMENT THE PAST DUE FILL ON THE MED REC NOVOLOG VIAL LAST FILLED ON 05-18-2020 #2VIALS PT DENIED TAKING ANY OTC MEDICATIONS
--- NOTE | 2020-06-16 13:28 | NUR ---
THIS NURSE NOTIFIED LAB BMP FOR 1240 HAS NOT BEEN DRAWN.
[2020-06-16] MEDS: D5 1/2 NS 1000 ML IV SOLUTION 1,000 ML IV SCH ×3 (13:41→20:25)
--- NOTE | 2020-06-16 13:50 | NUR ---
RD ASSESSMENT PMHx: pneumonia; cardiomyopathy; gastroparesis; DM; hx of DKA (last admit 03/18/2020) PT INTERACTION: Pt was awake and pleasant during nutrition assessment. Pt states current appetite is not good. Note PO intake <10% x1meal, per chart review. Note pt currently NPO, per chart review. Pt states following a diabetic diet at home, and has no issues with chewing/swallowing food. Pt states some issues with nausea and vomiting. Note 1 episode of emesis on 06/16, per chart review. Pt states no recent issues with constipation or diarrhea, and that his last BM was 06/15. Note pt not currently on bowel regimen per chart review. Pt states no recent wt changes. Note recent 7# wt gain x3mon, per chart review. Pt states current DM management is "pretty good most of the time." Note recent HbA1c of 8.2, taken on 03/18/2020, per chart review. Note pt hx of DKA, per chart review. ABNORMAL NUTRITION-RELATED LAB VALUES LOW: Na 129; Ca 8.0 HIGH: glu 639 Est. kcal needs: 1725 kcal | 30 kcal/kg Est. Pro needs: 69 g Pro | 1.2 g Pro/kg PES STATEMENT: Inadequate oral intake (NI-2.1) related to loss of appetite | nausea | vomiting as evidenced by pt interview | PO intake <10% x1meal INTERVENTION: Note pt currently NPO, per chart review. Would recommend diet advancement to consistent CHO diet, when medically able and as tolerated. Offered diet education on DM management, but pt declined at this time. Will attempt to offer again prior to discharge. Will continue to follow and reassess as pt needs, intake, and status change. MONITOR/EVALUATE: PO Intake; Plan of Care; Hydration Status; Weight Status; Lab Values Nohelia Allen, MS, RD, LD
[2020-06-16 14:04] LABS: BUN/CREATININE RATIO 9; CALCIUM 8.2 MG/DL (8.5-10.1); CARBON DIOXIDE 17 MMOL/L (21-32); CHLORIDE 106 MMOL/L (98-107); CREATININE SERUM 0.87 MG/DL (0.60-1.30); GFR ESTIMATED > 60; GLUCOSE 206 MG/DL (70-105); POTASSIUM 4.2 MMOL/L (3.6-5.0); SODIUM 135 MMOL/L (135-145)
--- NOTE | 2020-06-16 15:50 | History & Physical ---
HPI History of Present Illness: 30 yo M with type I DM that presented to ER with N/V. He states that he has not been around anyone who has been sick. About 3 days ago he was no longer able to keep food down and it has been getting worse each day. He states that he has been taking his insulin but less then he normally does because he has not been eating. He has been trying to keep water down. Denies any cough no contact with any positive COVID cases. Source: patient, RN/MD Exam Limitations: no limitations Date seen by provider: Jun 16, 2020 Time Seen by Provider: 08:45 Attending Physician Shamika Orlando MD PCP Kamala Alonzo DO Consult Date of Admission Jun 15, 2020 at 23:00 Home Medications Home Medications Reviewed patient Home Medication Reconciliation performed by pharmacy medication reconciliations digital technician and/or nursing. Patients Allergies have been reviewed. Allergies Coded Allergies: Penicillins (Verified Allergy, Unknown, 05/23/06) [id number] Hx Patient Social History Alcohol Use: Denies Use Recreational Drug Use: Yes (THC) Drug of Choice: MARIJUANA Smoking Status: Former Smoker (QUIT 2013 < 1 PPD) Type Used: Cigarettes 2nd Hand Smoke Exposure: No Recent Foreign Travel: No Contact w/other who traveled: No Recent Hopitalizations: No Recent Infectious Disease Expo: No Immunizations Up To Date Tetanus Booster (TDap): Unknown Date of Pneumonia Vaccine: Sep 15, 2017 Date of Influenza Vaccine: Sep 15, 2019 Past Medical History PMHx: Type I Diabetes Anxiety Diabetic Retinopathy Thyrotoxicosis Pneumonia Cardiomyopathy Gastroparesis Family Medical History Significant Family History: Heart Disease, Cancer, Hypertension Family History: Cardiovascular disease 19 FATHER Hypertension 19 FATHER Review of Systems ([facility]) Constitutional: No chills, No fever; malaise, weakness EENTM: mouth pain; No nose pain, No throat pain Respiratory: no symptoms reported; No cough, No dyspnea on exertion, No short of breath Cardiovascular: no symptoms reported; No chest pain, No edema, No palpitations Gastrointestinal: abdominal pain, loss of appetite, nausea, vomiting Genitourinary: No dysuria; frequency; No hematuria Musculoskeletal: no symptoms reported; No back pain, No joint pain, No muscle pain Skin: no symptoms reported; No lesions, No rash Psychiatric/Neurological: No Symptoms Reported Reviewed Test Results Reviewed Test Results Lab Laboratory Tests Test 06/15/20 21:30 06/15/20 21:41 06/15/20 22:18 06/15/20 22:44 Range/Units Glucometer 144 H 70-110 MG/DL White Blood Count 14.0 H 4.3-11.0 10^3/uL Red Blood Count 4.82 4.35-5.85 10^6/uL Hemoglobin 13.6 13.3-17.7 G/DL Hematocrit 39 L 40-54 % Mean Corpuscular Volume 81 80-99 FL Mean Corpuscular Hemoglobin 28 25-34 PG Mean Corpuscular Hemoglobin Concent 35 32-36 G/DL Red Cell Distribution Width 13.8 10.0-14.5 % Platelet Count 320 130-400 10^3/uL Mean Platelet Volume 8.8 7.4-10.4 FL Neutrophils (%) (Auto) 70 42-75 % Lymphocytes (%) (Auto) 22 12-44 % Monocytes (%) (Auto) 7 0-12 % Eosinophils (%) (Auto) 0 0-10 % Basophils (%) (Auto) 0 0-10 % Neutrophils # (Auto) 9.8 H 1.8-7.8 X 10^3 Lymphocytes # (Auto) 3.1 1.0-4.0 X 10^3 Monocytes # (Auto) 1.0 0.0-1.0 X 10^3 Eosinophils # (Auto) 0.1 0.0-0.3 10^3/uL Basophils # (Auto) 0.0 0.0-0.1 10^3/uL Neutrophils % (Manual) 66 % Lymphocytes % (Manual) 23 % Monocytes % (Manual) 11 % Eosinophils % (Manual) 0 % Basophils % (Manual) 0 % Band Neutrophils 0 % Anisocytosis SLIGHT Rouleau SLIGHT Sodium Level 137 135-145 MMOL/L Potassium Level 2.7 L 3.6-5.0 MMOL/L Chloride Level 98 98-107 MMOL/L Carbon Dioxide Level 20 L 21-32 MMOL/L Anion Gap 19 H 5-14 MMOL/L Blood Urea Nitrogen 8 7-18 MG/DL Creatinine 0.88 0.60-1.30 MG/DL Estimat Glomerular Filtration Rate > 60 BUN/Creatinine Ratio 9 Glucose Level 161 H 70-105 MG/DL Calcium Level 9.4 8.5-10.1 MG/DL Corrected Calcium 9.5 8.5-10.1 MG/DL Magnesium Level 1.8 1.6-2.4 MG/DL Total Bilirubin 0.6 0.1-1.0 MG/DL Aspartate Amino Transf (AST/SGOT) 18 5-34 U/L Alanine Aminotransferase (ALT/SGPT) 23 0-55 U/L Alkaline Phosphatase 79 40-136 U/L Total Protein 6.6 6.4-8.2 GM/DL Albumin 3.9 3.2-4.5 GM/DL Amylase Level 40 25-125 U/L Lipase 16 8-78 U/L Beta-Hydroxybutyrate (Chem panel) 3.63 H 0.00-0.27 MMOL/L Urine Color YELLOW Urine Clarity CLEAR Urine pH 6.0 5-9 Urine Specific Bernard 1.015 L 1.016-1.022 Urine Protein NEGATIVE NEGATIVE Urine Glucose (UA) 3+ H NEGATIVE Urine Ketones 3+ H NEGATIVE Urine Nitrite NEGATIVE NEGATIVE Urine Bilirubin 2+ H NEGATIVE Urine Urobilinogen 0.2 < = 1.0 MG/DL Urine Leukocyte Esterase NEGATIVE NEGATIVE Urine RBC (Auto) 2+ H NEGATIVE Urine RBC 5-10 H /HPF Urine WBC 0-2 /HPF Urine Squamous Epithelial Cells RARE /HPF Urine Crystals NONE /LPF Urine Bacteria NEGATIVE /HPF Urine Casts NONE /LPF Urine Mucus SMALL H /LPF Urine Culture Indicated NO Urine Opiates Screen NEGATIVE NEGATIVE Urine Oxycodone Screen NEGATIVE NEGATIVE Urine Methadone Screen NEGATIVE NEGATIVE Urine Propoxyphene Screen NEGATIVE NEGATIVE Urine Barbiturates Screen NEGATIVE NEGATIVE Ur Tricyclic Antidepressants Screen NEGATIVE NEGATIVE Urine Phencyclidine Screen NEGATIVE NEGATIVE Urine Amphetamines Screen NEGATIVE NEGATIVE Urine Methamphetamines Screen NEGATIVE NEGATIVE Urine Benzodiazepines Screen NEGATIVE NEGATIVE Urine Cocaine Screen NEGATIVE NEGATIVE Urine Cannabinoids Screen POSITIVE H NEGATIVE Blood Gas Puncture Site RIGHT RADIAL Blood Gas Patient Temperature 37.1 Arterial Blood pH 7.47 H 7.37-7.43 Arterial Blood Partial Pressure CO2 34 L 35-45 MMHG Arterial Blood Partial Pressure O2 112 H 79-93 MMHG Arterial Blood HCO3 24 23-27 MMOL/L Arterial Blood Total CO2 25.3 21.0-31.0 MMOL/L Arterial Blood Oxygen Saturation 99 94-100 % Arterial Blood Base Excess 1.0 -2.5-2.5 MMOL/L Bony Test POSITIVE Blood Gas Ventilator Setting NO Blood Gas Inspired Oxygen RA Test 06/16/20 03:05 06/16/20 04:43 06/16/20 05:00 06/16/20 06:26 Range/Units Glucometer 266 H 239 H 152 H 70-110 MG/DL White Blood Count 14.0 H 4.3-11.0 10^3/uL Red Blood Count 4.50 4.35-5.85 10^6/uL Hemoglobin 12.7 L 13.3-17.7 G/DL Hematocrit 37 L 40-54 % Mean Corpuscular Volume 83 80-99 FL Mean Corpuscular Hemoglobin 28 25-34 PG Mean Corpuscular Hemoglobin Concent 34 32-36 G/DL Red Cell Distribution Width 14.0 10.0-14.5 % Platelet Count 284 130-400 10^3/uL Mean Platelet Volume 9.0 7.4-10.4 FL Neutrophils (%) (Auto) 90 H 42-75 % Lymphocytes (%) (Auto) 6 L 12-44 % Monocytes (%) (Auto) 4 0-12 % Eosinophils (%) (Auto) 0 0-10 % Basophils (%) (Auto) 0 0-10 % Neutrophils # (Auto) 12.5 H 1.8-7.8 X 10^3 Lymphocytes # (Auto) 0.8 L 1.0-4.0 X 10^3 Monocytes # (Auto) 0.6 0.0-1.0 X 10^3 Eosinophils # (Auto) 0.0 0.0-0.3 10^3/uL Basophils # (Auto) 0.0 0.0-0.1 10^3/uL Sodium Level 138 135-145 MMOL/L Potassium Level 4.2 3.6-5.0 MMOL/L Chloride Level 107 98-107 MMOL/L Carbon Dioxide Level 12 L 21-32 MMOL/L Anion Gap 19 H 5-14 MMOL/L Blood Urea Nitrogen 9 7-18 MG/DL Creatinine 0.86 0.60-1.30 MG/DL Estimat Glomerular Filtration Rate > 60 BUN/Creatinine Ratio 10 Glucose Level 245 H 70-105 MG/DL Calcium Level 8.6 8.5-10.1 MG/DL Corrected Calcium 8.8 8.5-10.1 MG/DL Total Bilirubin 0.5 0.1-1.0 MG/DL Aspartate Amino Transf (AST/SGOT) 21 5-34 U/L Alanine Aminotransferase (ALT/SGPT) 23 0-55 U/L Alkaline Phosphatase 75 40-136 U/L Total Protein 6.2 L 6.4-8.2 GM/DL Albumin 3.7 3.2-4.5 GM/DL Test 06/16/20 07:55 06/16/20 08:20 06/16/20 08:30 06/16/20 09:19 Range/Units Glucometer 456 *H 481 *H 481 *H 70-110 MG/DL White Blood Count 19.0 H 4.3-11.0 10^3/uL Red Blood Count 3.92 L 4.35-5.85 10^6/uL Hemoglobin 11.1 L 13.3-17.7 G/DL Hematocrit 34 L 40-54 % Mean Corpuscular Volume 86 80-99 FL Mean Corpuscular Hemoglobin 28 25-34 PG Mean Corpuscular Hemoglobin Concent 33 32-36 G/DL Red Cell Distribution Width 13.9 10.0-14.5 % Platelet Count 256 130-400 10^3/uL Mean Platelet Volume 9.9 7.4-10.4 FL Sodium Level 129 L 135-145 MMOL/L Potassium Level 6.1 H 3.6-5.0 MMOL/L Chloride Level 98 98-107 MMOL/L Carbon Dioxide Level 6 *L 21-32 MMOL/L Anion Gap 25 H 5-14 MMOL/L Blood Urea Nitrogen 11 7-18 MG/DL Creatinine 1.15 0.60-1.30 MG/DL Estimat Glomerular Filtration Rate > 60 BUN/Creatinine Ratio 10 Glucose Level 639 *H 70-105 MG/DL Lactic Acid Level 3.46 *H 0.50-2.00 MMOL/L Calcium Level 8.0 L 8.5-10.1 MG/DL Beta-Hydroxybutyrate (Chem panel) 7.85 H 0.00-0.27 MMOL/L Test 06/16/20 10:18 06/16/20 10:27 06/16/20 10:39 06/16/20 11:17 Range/Units Glucometer 353 H 248 H 70-110 MG/DL Urine Color YELLOW Urine Clarity CLEAR Urine pH 5.5 5-9 Urine Specific Bernard 1.015 L 1.016-1.022 Urine Protein NEGATIVE NEGATIVE Urine Glucose (UA) 3+ H NEGATIVE Urine Ketones 3+ H NEGATIVE Urine Nitrite NEGATIVE NEGATIVE Urine Bilirubin NEGATIVE NEGATIVE Urine Urobilinogen 0.2 < = 1.0 MG/DL Urine Leukocyte Esterase NEGATIVE NEGATIVE Urine RBC (Auto) 3+ H NEGATIVE Urine RBC 5-10 H /HPF Urine WBC 0-2 /HPF Urine Squamous Epithelial Cells NONE /HPF Urine Crystals NONE /LPF Urine Bacteria NEGATIVE /HPF Urine Casts NONE /LPF Urine Mucus NEGATIVE /LPF Urine Culture Indicated NO Sodium Level 134 L 135-145 MMOL/L Potassium Level 4.7 3.6-5.0 MMOL/L Chloride Level 103 98-107 MMOL/L Carbon Dioxide Level 10 L 21-32 MMOL/L Anion Gap 21 H 5-14 MMOL/L Blood Urea Nitrogen 12 7-18 MG/DL Creatinine 1.05 0.60-1.30 MG/DL Estimat Glomerular Filtration Rate > 60 BUN/Creatinine Ratio 11 Glucose Level 342 H 70-105 MG/DL Lactic Acid Level 2.37 *H 0.50-2.00 MMOL/L Calcium Level 8.6 8.5-10.1 MG/DL Test 06/16/20 12:16 06/16/20 12:27 06/16/20 13:15 06/16/20 13:41 Range/Units Glucometer 225 H 237 H 70-110 MG/DL Lactic Acid Level 1.08 0.50-2.00 MMOL/L Sodium Level 135 135-145 MMOL/L Potassium Level 4.2 3.6-5.0 MMOL/L Chloride Level 106 98-107 MMOL/L Carbon Dioxide Level 17 L 21-32 MMOL/L Anion Gap 12 5-14 MMOL/L Blood Urea Nitrogen 8 7-18 MG/DL Creatinine 0.87 0.60-1.30 MG/DL Estimat Glomerular Filtration Rate > 60 BUN/Creatinine Ratio 9 Glucose Level 206 H 70-105 MG/DL Calcium Level 8.2 L 8.5-10.1 MG/DL Test 06/16/20 14:15 06/16/20 15:17 06/16/20 16:17 06/16/20 17:16 Range/Units Glucometer 214 H 147 H 184 H 164 H 70-110 MG/DL Test 06/16/20 17:45 06/16/20 18:01 06/16/20 19:25 06/16/20 20:28 Range/Units Sodium Level 134 L 135-145 MMOL/L Potassium Level 3.9 3.6-5.0 MMOL/L Chloride Level 106 98-107 MMOL/L Carbon Dioxide Level 18 L 21-32 MMOL/L Anion Gap 10 5-14 MMOL/L Blood Urea Nitrogen 6 L 7-18 MG/DL Creatinine 0.80 0.60-1.30 MG/DL Estimat Glomerular Filtration Rate > 60 BUN/Creatinine Ratio 8 Glucose Level 173 H 70-105 MG/DL Calcium Level 7.9 L 8.5-10.1 MG/DL Glucometer 230 H 124 H 165 H 70-110 MG/DL Physical Exam-([facility]) Physical Exam Vital Signs VS - Last 72 Hours, by Label 06/15/20 06/16/20 06/16/20 06/16/20 21:27 00:06 00:35 00:40 Temp 36.8 36.8 Pulse 111 112 116 Resp 17 18 18 B/P (MAP) 165/103 (123) 163/103 180/94 Pulse Ox 100 99 O2 Delivery Room Air Room Air Room Air Room Air O2 Flow Rate 99.00 06/16/20 06/16/20 06/16/20 06/16/20 03:42 03:45 04:43 07:01 Temp 37.2 Pulse 144 138 118 144 Resp 20 B/P (MAP) 165/86 (112) Pulse Ox 100 O2 Delivery Room Air 06/16/20 06/16/20 06/16/20 06/16/20 08:00 08:30 09:00 10:00 Temp 37.3 Pulse 146 154 147 Resp 44 42 19 B/P (MAP) 80/41 (54) 105/51 (69) 140/79 (99) Pulse Ox 100 100 100 100 O2 Delivery Room Air Room Air Room Air Room Air 06/16/20 06/16/20 06/16/20 06/16/20 11:00 11:17 12:00 12:00 Temp 37.3 Pulse 147 142 Resp 12 11 B/P (MAP) 161/87 (111) 176/90 (118) Pulse Ox 100 100 100 O2 Delivery Room Air Room Air Room Air 06/16/20 06/16/20 06/16/20 06/16/20 13:00 13:03 14:00 15:00 Pulse 133 133 129 123 Resp 22 26 7 B/P (MAP) 168/102 (124) 150/96 (114) 156/102 (120) Pulse Ox 100 100 100 O2 Delivery Room Air Room Air Room Air 06/16/20 06/16/20 06/16/20 06/16/20 16:00 16:00 17:00 18:00 Pulse 133 118 121 Resp 27 B/P (MAP) 120/64 (82) 134/86 (102) 147/98 (114) Pulse Ox 100 100 99 99 O2 Delivery Room Air Room Air Room Air Room Air 06/16/20 06/16/20 06/16/20 06/16/20 18:09 19:00 20:00 20:00 Temp 37.2 Pulse 115 128 Resp 20 26 B/P (MAP) 139/96 (110) 162/95 (117) Pulse Ox 99 100 100 O2 Delivery Room Air Room Air Room Air 06/16/20 20:00 Temp 36.3 Capillary Refill : Less Than 3 Seconds General Appearance: moderate distress HEENT: PERRL/EOMI Neck: non-tender, full range of motion, supple Respiratory: lungs clear, other (tachypneic) Cardiovascular: normal peripheral pulses, no edema, tachycardia Gastrointestinal: soft; No guarding, No rebound; tenderness Back: no CVA tenderness, no vertebral tenderness Extremities: non-tender, no pedal edema, no calf tenderness Neurologic/Psychiatric: gas flow regulator II-XII nml as tested, alert, oriented x 3 Skin: normal color, warm/dry Lymphatic: no adenopathy Assessment/Plan Assessment/Plan Admission Status: Inpatient Order (span 2 midnights) Reason for Inpatient Admission: Patient admitted to 4th floor and symptoms worsened and he was then transferred to ICU for DKA (1) Diabetic ketoacidosis Status: Acute Assessment & Plan: - Patient initially admitted to the floor as he had normal labs and no anion gap, patient's condition continued to worsen and he was vomiting for over an hr with no response to medications. Repeat labs were consistent with DKA and patient was transferred up to ICU and started on insulin drip. He was given 2 additional liter NS bolus as his last pressure on the floor was 80/60s, Upon evaluation patient was tachycardic and tachypneic. Will get q4 hr labs until gap is closed. EICU consulted to help with management. Qualifiers: Qualified Codes: E10.10 - Type 1 diabetes mellitus with ketoacidosis without coma (2) Hypokalemia Status: Acute Assessment & Plan: - Continue to monitor closely as we correct the acidosis (3) Intractable nausea and vomiting Status: Acute Clinical Quality Measures DVT/VTE Risk/Contraindication: Risk Factor Score Per Nursin RFS Level Per Nursing on Admit: 2=Moderate SHAMIKA ORLANDO MD Jun 16, 2020 15:50
[2020-06-16 18:29] LABS: CHLORIDE 106 MMOL/L (98-107); POTASSIUM 3.9 MMOL/L (3.6-5.0); SODIUM 134 MMOL/L (135-145)
[2020-06-16 18:30] LABS: CALCIUM 7.9 MG/DL (8.5-10.1)
[2020-06-16 18:31] LABS: GLUCOSE 173 MG/DL (70-105)
[2020-06-16 18:32] LABS: CARBON DIOXIDE 18 MMOL/L (21-32)
[2020-06-16 18:35] LABS: GFR ESTIMATED > 60
[2020-06-16 18:36] LABS: BUN/CREATININE RATIO 8
[2020-06-16 22:21] LABS: CHLORIDE 105 MMOL/L (98-107); POTASSIUM 3.9 MMOL/L (3.6-5.0); SODIUM 135 MMOL/L (135-145)
[2020-06-16 22:23] LABS: GLUCOSE 172 MG/DL (70-105)
[2020-06-16 22:24] LABS: CARBON DIOXIDE 17 MMOL/L (21-32)
[2020-06-16 22:27] LABS: BUN/CREATININE RATIO 6; CREATININE SERUM 0.77 MG/DL (0.60-1.30); GFR ESTIMATED > 60
[2020-06-17] VITALS (15 sets, daily range): BP systolic 134–170; BP diastolic 82–113
[2020-06-17] MEDS: NS W/KCL 40 MEQ/L 1,000 ML IV SCH ×4 (00:19→11:55)
[2020-06-17] MEDS: 1/2 NS IV SOLUTION 1,000 ML IV SCH ×4 (00:19→11:55)
[2020-06-17] MEDS: D5 1/2 NS 1000 ML IV SOLUTION 1,000 ML IV SCH ×2 (00:26→04:30)
[2020-06-17] MEDS: POTASSIUM CL 10MEQ/50ML IVPB 50 ML IV SCH ×4 (01:08→06:25)
[2020-06-17 01:54] LABS: BASOPHILS % (AUTO) 0 % (0-10); EOSINOPHILS % (AUTO) 0 % (0-10); HEMATOCRIT 32 % (40-54); LYMPHOCYTES # (AUTO) 2.2 X 10^3 (1.0-4.0); LYMPHOCYTES % (AUTO) 16 % (12-44); MEAN CORPUSCULAR HEMOGLOBIN 28 PG (25-34); MEAN CORPUSCULAR HGB CONC 34 G/DL (32-36); MEAN CORPUSCULAR VOLUME 83 FL (80-99); MEAN PLATELET VOLUME 8.5 FL (7.4-10.4); MONOCYTES % (AUTO) 7 % (0-12); NEUTROPHILS % (AUTO) 78 % (42-75); PLATELET COUNT 202 10^3/uL (130-400); RED CELL DISTRIBUTION WIDTH 14.2 % (10.0-14.5); WHITE BLOOD COUNT 14.2 10^3/uL (4.3-11.0)
[2020-06-17 02:04] LABS: CHLORIDE 105 MMOL/L (98-107); POTASSIUM 3.6 MMOL/L (3.6-5.0); SODIUM 134 MMOL/L (135-145)
[2020-06-17 02:06] LABS: GLUCOSE 169 MG/DL (70-105)
[2020-06-17 02:07] LABS: CARBON DIOXIDE 20 MMOL/L (21-32)
[2020-06-17 02:09] LABS: PHOSPHORUS 2.6 MG/DL (2.3-4.7)
[2020-06-17 02:10] LABS: CREATININE SERUM 0.72 MG/DL (0.60-1.30); GFR ESTIMATED > 60
[2020-06-17 02:11] LABS: BUN/CREATININE RATIO 4
[2020-06-17 02:12] LABS: MAGNESIUM 1.6 MG/DL (1.6-2.4)
--- NOTE | 2020-06-17 05:35 | Pulmonary Consultation ---
YAS PÉREZ MED STUDENT 06/17/20 0535: History of Present Illness History of Present Illness Date Seen by Provider: Jun 17, 2020 Time Seen by Provider: 05:20 Date of Admission History of Present Illness Maurice Nelson is a 30 year old male seen today due to DKA, nausea and vomiting. He reports going to the ER 06/15 due to intractable nausea and vomiting. He was admitted to the 4th floor, and later transferred to the ICU. He denies having any fevers, chills, CP, SOB, abdominal pain, diarrhea or constipation. When seen this morning he has no complaints, his nausea has resolved and he denies any new symptoms. Allergies and Home Medications Allergies Coded Allergies: Penicillins (Verified Allergy, Unknown, 05/23/06) Home Medications Insulin Aspart 100 Unit/1 Ml Susp, 10-12 UNIT SQ TIDAC, (Reported) USES 2 UNITS PER EVERY CARB Insulin Determir 1,000 Units/10 Ml Soln, 10 UNITS SQ HS, (Reported) LAST FILLED 11-21-2019 #2 VIALS / 100 DAY SUPPLY Past Lzfrepx-Gflkcf-Zleihy Hx Past Med/Social Hx: Reviewed and Corrections made Patient Social History Alcohol Use: Denies Use Recreational Drug Use: Yes (THC) Drug of Choice: MARIJUANA Smoking Status: Former Smoker (QUIT 2012 < 1 PPD) Type Used: Cigarettes Former Smoker, Quit: Sep 28, 2012 2nd Hand Smoke Exposure: No Recent Foreign Travel: No Contact w/Someone Who Travel: No Recent Infectious Disease Expo: No Recent Hopitalizations: No Physical Abuse: No Sexual Abuse: No Mistreated: No Fear: No Immunizations Up To Date Tetanus Booster (TDap): Unknown PED Vaccines UTD: No Date of Pneumonia Vaccine: Sep 15, 2017 Date of Influenza Vaccine: Sep 15, 2019 Seasonal Allergies Seasonal Allergies: No Past Medical History Surgeries: No Respiratory: Yes Pneumonia Currently Using CPAP: No Currently Using BIPAP: No Cardiac: Yes (CARDIOMYOPATHY DX 2017) Cardiomyopathy Neurological: No Reproductive Disorders: No Sexually Transmitted Disease: No HIV/AIDS: No Genitourinary: No Gastrointestinal: Yes (GASTROPARESIS) Musculoskeletal: No Endocrine: Yes (DX AGE 11, [place] 2001; MULTIPLE ADMITS FOR DKA) Diabetes, Insulin dep Cancer: No Did You Recieve Any Treatments: No Psychosocial: No Integumentary: Yes (WOUNDS TO LOWER LEGS-- REQUIRED WOUND CARE CLINIC TREATMENT) Blood Disorders: No Adverse Reaction/Blood Tranf: No Family Medical History Cardiovascular disease 19 FATHER Hypertension 19 FATHER Heart Disease, Cancer, Hypertension Review of Systems Constitutional: No: Fever ENT: No: Nose congestion Respiratory: No: Cough, Shortness of breath Cardiovascular: No: Chest Pain, Palpitations Gastrointestinal: No: Nausea, Vomiting, Abdominal Pain, Diarrhea, Constipation Genitourinary: No Dysuria, No Frequency, No Incontinence Sepsis Event Evaluation Height, Weight, BMI Height: 5'11.00" Weight: 126lbs. 0.0oz. [id number]; 17.59 BMI Method:Stated Exam Exam Vital Signs Date Time Temp Pulse Resp B/P (MAP) Pulse Ox O2 Delivery O2 Flow Rate FiO2 06/17/20 05:00 93 30 153/103 (120) 99 Room Air 06/17/20 04:00 93 25 157/110 (126) 100 Room Air 06/17/20 03:00 96 162/107 (125) 100 Room Air 06/17/20 02:00 96 12 165/107 (126) 99 Room Air 06/17/20 01:00 97 150/95 (113) 100 Room Air 06/17/20 00:28 36.3 06/17/20 00:00 100 Room Air 06/17/20 00:00 96 156/112 (127) 99 Room Air 06/16/20 23:07 109 19 151/109 (123) 100 Room Air 06/16/20 22:00 121 163/98 (119) 100 Room Air 06/16/20 21:00 110 20 136/91 (106) 100 Room Air 06/16/20 20:00 36.3 06/16/20 20:00 128 26 162/95 (117) 100 Room Air 06/16/20 20:00 100 Room Air 06/16/20 19:17 116 06/16/20 19:00 115 20 139/96 (110) 99 Room Air 06/16/20 18:09 37.2 06/16/20 18:00 121 147/98 (114) 99 Room Air 06/16/20 17:00 118 134/86 (102) 99 Room Air 06/16/20 16:00 133 27 120/64 (82) 100 Room Air 06/16/20 16:00 100 Room Air 06/16/20 15:00 123 7 156/102 (120) 100 Room Air 06/16/20 14:00 129 26 150/96 (114) 100 Room Air 06/16/20 13:03 133 06/16/20 13:00 133 22 168/102 (124) 100 Room Air 06/16/20 12:00 142 11 176/90 (118) 100 Room Air 06/16/20 12:00 100 Room Air 06/16/20 11:17 37.3 06/16/20 11:00 147 12 161/87 (111) 100 Room Air 06/16/20 10:00 147 19 140/79 (99) 100 Room Air 06/16/20 09:00 154 42 105/51 (69) 100 Room Air 06/16/20 08:30 100 Room Air 06/16/20 08:00 37.3 146 44 80/41 (54) 100 Room Air 06/16/20 07:01 144 I & O 06/17/20 07:00 Intake Total 1470 ml Output Total 4370 ml Balance -2900 ml Height & Weight Height: 5'11.00" Weight: 126lbs. 0.0oz. [id number]; 17.59 BMI Method:Stated General Appearance: No Apparent Distress, Thin HEENT: PERRL/EOMI Neck: Normal Inspection, Non Tender, Supple Respiratory: Lungs Clear, Normal Breath Sounds, No Accessory Muscle Use, No Respiratory Distress Cardiovascular: Regular Rate, Rhythm, No Edema, No JVD, No Murmur, Normal Perip heral Pulses Gastrointestinal: normal bowel sounds, soft, no organomegaly; No guarding, No rebound; tenderness (epigastric) Extremity: Normal Inspection, Non Tender, No Calf Tenderness, No Pedal Edema Neurologic/Psychiatric: Alert, Oriented x3, No Motor/Sensory Deficits Skin: Warm/Dry, Pallor Results Lab Laboratory Tests 06/15/20 21:41 06/16/20 05:00 06/16/20 08:30 06/16/20 10:39 06/16/20 13:41 06/16/20 17:45 06/16/20 21:56 06/17/20 01:47 Assessment/Plan Assessment/Plan DKA - continue IV insulin. Anion gap resolved, if beta hydroxybutarate is low and patient is able to eat, can restart home insulin regimen - continue D5 1/2NS Hypokalemia - start KCl PO, continue to monitor N/V - continue ondansetron LUIS ANGEL MONGE DO 06/17/20 0650: Allergies and Home Medications Allergies Coded Allergies: Penicillins (Verified Allergy, Unknown, 05/23/06) Home Medications Insulin Aspart 100 Unit/1 Ml Susp, 10-12 UNIT SQ TIDAC, (Reported) USES 2 UNITS PER EVERY CARB Insulin Determir 1,000 Units/10 Ml Soln, 10 UNITS SQ HS, (Reported) LAST FILLED 11-21-2019 #2 VIALS / 100 DAY SUPPLY Past Vsvurkj-Ildkfl-Lbhjnb Hx Family Medical History Cardiovascular disease 19 FATHER Hypertension 19 FATHER Assessment/Plan Assessment/Plan DKA - give 10 units of Levemir then D/C insulin gtt 2hrs later N/V - continue ondansetron Will transfer to [facility] and I am going to sign off. YAS PÉREZ MED STUDENT Jun 17, 2020 05:35 LUIS ANGEL MONGE DO Jun 17, 2020 06:50
[2020-06-17] MEDS ORDERED: MAGNESIUM 1 GM/100 ML IVPB 200 ML IV ONE (05:49)
[2020-06-17] MEDS: MAGNESIUM 1 GM/100 ML IVPB 100 ML IV SCH ×2 (05:55→07:13)
[2020-06-17 05:57] LABS: CHLORIDE 106 MMOL/L (98-107); POTASSIUM 3.7 MMOL/L (3.6-5.0); SODIUM 135 MMOL/L (135-145)
[2020-06-17 05:58] LABS: CALCIUM 7.9 MG/DL (8.5-10.1)
[2020-06-17 05:59] LABS: GLUCOSE 157 MG/DL (70-105)
[2020-06-17 06:00] LABS: CARBON DIOXIDE 20 MMOL/L (21-32)
[2020-06-17] MEDS ORDERED: POTASSIUM CL 10MEQ/50ML IVPB 50 ML IV SCH (06:00)
[2020-06-17] MEDS ORDERED: KCL 20 MEQ TAB (K-DUR) PO SCH (06:00)
[2020-06-17] MEDS ORDERED: MAGNESIUM 1 GM/100 ML IVPB 100 ML IV SCH (06:00)
[2020-06-17 06:02] LABS: CREATININE SERUM 0.67 MG/DL (0.60-1.30); GFR ESTIMATED > 60
[2020-06-17 06:03] LABS: BUN/CREATININE RATIO 4
[2020-06-17] MEDS: PANTOPRAZOLE 40 MG (PROTONIX) VIAL IV SCH (08:34)
[2020-06-17] MEDS: cefTRIAXone FOR IV USE 1,000 MG in WATER (STERILE) FOR INJECTION 10 ML IV SCH (08:34)
--- NOTE | 2020-06-17 08:43 | Diagnostic Imaging Report ---
INDICATION: Diabetic ketoacidosis, nausea, vomiting COMPARISON: 06/15/2020 TECHNIQUE: Single radiograph of the chest dated 06/17/2020. FINDINGS: The cardiac silhouette is within normal limits in size. Minimal central pulmonary vascular congestion. The lungs are clear of focal pulmonary opacity. No significant pleural effusion. No pneumothorax. No acute osseous abnormality. IMPRESSION: Minimal pulmonary vascular congestion without significant interstitial edema. Dictated by: Dictated on workstation # [id number]
[2020-06-17 10:20] LABS: CHLORIDE 108 MMOL/L (98-107); POTASSIUM 3.7 MMOL/L (3.6-5.0); SODIUM 137 MMOL/L (135-145)
[2020-06-17 10:21] LABS: GLUCOSE 136 MG/DL (70-105)
[2020-06-17 10:23] LABS: CARBON DIOXIDE 22 MMOL/L (21-32)
[2020-06-17 10:25] LABS: CREATININE SERUM 0.64 MG/DL (0.60-1.30); GFR ESTIMATED > 60
[2020-06-17 10:26] LABS: BUN/CREATININE RATIO 3
--- NOTE | 2020-06-17 13:11 | NUR ---
DR FERMIN NOTIFIED THIS NURSE THAT PT CAN GO TO THE FOURTH FLOOR. PT DOES NOT NEED TELE.
[2020-06-17] MEDS: ONDANSETRON 4 MG/2 ML (SDV) Z0FRAN IV PRN (14:27)
--- NOTE | 2020-06-17 16:19 | Progress Note ---
Subjective Subjective/Events-last exam Patient feeling much better this AM. Would like to try and eat a regular diet. Denies any pain, shortness of breath or palpitations Review of Systems Pulmonary: No Dyspnea, No Cough Cardiovascular: No: Chest Pain, Palpitations Gastrointestinal: Diarrhea; No: Nausea, Vomiting, Abdominal Pain, Constipation Focused Exam Lactate Level 06/16/20 08:30: Lactic Acid Level 3.46*H 06/16/20 10:39: Lactic Acid Level 2.37*H 06/16/20 12:27: Lactic Acid Level 1.08 Objective Exam Last Set of Vital Signs Vital Signs Date Time Temp Pulse Resp B/P (MAP) Pulse Ox O2 Delivery O2 Flow Rate FiO2 06/17/20 13:14 107 06/17/20 12:11 37.1 06/17/20 12:00 17 161/102 (121) 100 Room Air 06/16/20 00:40 99.00 Capillary Refill : Less Than 3 Seconds I&O Intake and Output 06/17/20 00:00 Intake Total 2542 ml Output Total 5800 ml Balance -3258 ml Intake Oral 1222 ml IV Total 1320 ml Output Urine Total 4700 ml Emesis 1100 ml Daily Weight Change Yes, 2-13 lbs Yes, 2-13 lbs General: Alert, Oriented X3, Cooperative, No Acute Distress HEENT: Mucous Memb Moist/[place] Lungs: Clear to Auscultation, Normal Air Movement Heart: Regular Rate, No Murmurs Abdomen: Normal Bowel Sounds, Soft, No Tenderness, No Masses Extremities: No Edema, No Tenderness/Swelling Skin: No Rashes, No Breakdown Neuro: Sensation Intact, Cranial Nerves 3-12 NL Results/Procedures Lab Laboratory Tests 06/16/20 17:16: Glucometer 164H 06/16/20 17:45: Sodium Level 134L, Potassium Level 3.9, Chloride Level 106, Carbon Dioxide Level 18L, Anion Gap 10, Blood Urea Nitrogen 6L, Creatinine 0.80, Estimat Glomerular Filtration Rate > 60, BUN/Creatinine Ratio 8, Glucose Level 173H, Calcium Level 7.9L 06/16/20 18:01: Glucometer 230H 06/16/20 19:25: Glucometer 124H 06/16/20 20:28: Glucometer 165H 06/16/20 21:23: Glucometer 138H 06/16/20 21:56: Sodium Level 135, Potassium Level 3.9, Chloride Level 105, Carbon Dioxide Level 17L, Anion Gap 13, Blood Urea Nitrogen 5L, Creatinine 0.77, Estimat Glomerular Filtration Rate > 60, BUN/Creatinine Ratio 6, Glucose Level 172H, Calcium Level 8.0L 06/16/20 22:26: Glucometer 177H 06/16/20 23:29: Glucometer 180H 06/17/20 00:22: Glucometer 163H 06/17/20 01:31: Glucometer 148H 06/17/20 01:47: White Blood Count 14.2H, Red Blood Count 3.90L, Hemoglobin 11.0L, Hematocrit 32L , Mean Corpuscular Volume 83, Mean Corpuscular Hemoglobin 28, Mean Corpuscular Hemoglobin Concent 34, Red Cell Distribution Width 14.2, Platelet Count 202, Mean Platelet Volume 8.5, Neutrophils (%) (Auto) 78H, Lymphocytes (%) (Auto) 16, Monocytes (%) (Auto) 7, Eosinophils (%) (Auto) 0, Basophils (%) (Auto) 0, Neutrophils # (Auto) 11.0H, Lymphocytes # (Auto) 2.2, Monocytes # (Auto) 1.0, Eosinophils # (Auto) 0.0, Basophils # (Auto) 0.0, Sodium Level 134L, Potassium Level 3.6, Chloride Level 105, Carbon Dioxide Level 20L, Anion Gap 9, Blood Urea Nitrogen 3L, Creatinine 0.72, Estimat Glomerular Filtration Rate > 60, BUN/Creatinine Ratio 4, Glucose Level 169H, Calcium Level 8.0L, Phosphorus Level 2.6, Magnesium Level 1.6 06/17/20 02:48: Glucometer 148H 06/17/20 03:46: Glucometer 131H 06/17/20 04:32: Glucometer 125H 06/17/20 05:31: Sodium Level 135, Potassium Level 3.7, Chloride Level 106, Carbon Dioxide Level 20L, Anion Gap 9, Blood Urea Nitrogen 3L, Creatinine 0.67, Estimat Glomerular Filtration Rate > 60, BUN/Creatinine Ratio 4, Glucose Level 157H, Calcium Level 7.9L, Beta-Hydroxybutyrate (Chem panel) 0.07 06/17/20 05:36: Glucometer 158H 06/17/20 06:28: Glucometer 156H 06/17/20 07:36: Glucometer 155H 06/17/20 08:31: Glucometer 152H 06/17/20 09:31: Glucometer 145H 06/17/20 10:04: Sodium Level 137, Potassium Level 3.7, Chloride Level 108H, Carbon Dioxide Level 22, Anion Gap 7, Blood Urea Nitrogen < 2L, Creatinine 0.64, Estimat Glomerular Filtration Rate > 60, BUN/Creatinine Ratio 3, Glucose Level 136H, Calcium Level 8.0L 06/17/20 10:27: Glucometer 119H 06/17/20 11:31: Glucometer 64L 06/17/20 11:48: Glucometer 53*L 06/17/20 12:00: Glucometer 54*L 06/17/20 12:19: Glucometer 80 06/17/20 14:34: Glucometer 89 Microbiology 06/16/20 MRSA Screen - Final, Complete MRSA not isolated Assessment/Plan Assessment/Plan (1) Diabetic ketoacidosis Status: Acute Assessment & Plan: - Patient initially admitted to the floor as he had normal labs and no anion gap, patient's condition continued to worsen and he was vom iting for over an hr with no response to medications. Repeat labs were consistent with DKA and patient was transferred up to ICU and started on insulin drip. He was given 2 additional liter NS bolus as his last pressure on the floor was 80/60s, Upon evaluation patient was tachycardic and tachypneic. Will get q4 hr labs until gap is closed. EICU consulted to help with management. 06/17: Insulin gtts stopped this AM, patient given levemir 10 units qhs, restart subcutaneous insulin Qualifiers: Qualified Codes: E10.10 - Type 1 diabetes mellitus with ketoacidosis without coma (2) Hypokalemia Status: Resolved Assessment & Plan: - Continue to monitor closely as we correct the acidosis (3) Intractable nausea and vomiting Status: Resolved Clinical Quality Measures DVT/VTE Risk/Contraindication: Risk Factor Score Per Nursin RFS Level Per Nursing on Admit: 2=Moderate SHAMIKA FERMIN MD Jun 17, 2020 16:19
--- NOTE | 2020-06-17 16:50 | NUR ---
THIS NURSE GAVE REPORT TO NOEMI GOLDEN. PT TAKEN TO NEW ROOM VIA WHEELCHAIR. PT LAYING IN BED WITH CALL LIGHT. PT STATES HE DOES NOT NEED ANYTHING
[2020-06-17] MEDS: lisINopril 10 MG (PRINIVIL) TABLET PO SCH (17:03)
[2020-06-17] MEDS: inSUlin ASPART (NovoLOG) 1 UNIT/0.01 ML (CHARGE PER UNIT) SC SCH (21:05)
[2020-06-18 03:40] VITALS: BP 128/86
--- NOTE | 2020-06-18 04:43 | Pulmonary Progress Note ---
Subjective Date Seen by a Provider: Jun 18, 2020 Time Seen by a Provider: 04:30 Subjective/Events-last exam Since patient was last seen yesterday he reports feeling improved, he has not eaten yet due to lack of appetite but has been tolerating drinking. Wants to eat today. Reports having diarrhea this morning. Denies n/v, abdominal pain, CP or SOB, fevers or chills. Review of Systems General: No Chills; Appetite (reduced) HEENT: No Sinus Congestion, No Sore Throat Pulmonary: No Dyspnea, No Cough Cardiovascular: No: Chest Pain, Palpitations, Lt [place]ness Gastrointestinal: Diarrhea (once this morning); No: Nausea, Vomiting, Abdominal Pain, Constipation Genitourinary: No Dysuria, No Frequency, No Retention Sepsis Event Evaluation Height, Weight, BMI Height: 5'11.00" Weight: 126lbs. 0.0oz. [id number]; 17.59 BMI Method:Stated Focused Exam Lactate Level 06/16/20 08:30: Lactic Acid Level 3.46*H 06/16/20 10:39: Lactic Acid Level 2.37*H 06/16/20 12:27: Lactic Acid Level 1.08 Exam Exam Vital Signs Date Time Temp Pulse Resp B/P (MAP) Pulse Ox O2 Delivery O2 Flow Rate FiO2 06/18/20 03:40 36.2 100 14 128/86 (100) 99 Room Air 06/17/20 23:50 37.1 100 18 152/90 (110) 93 Room Air 06/17/20 21:00 Room Air 06/17/20 21:00 Room Air 06/17/20 19:04 36.9 109 19 150/82 (104) 99 Room Air 06/17/20 16:59 37.3 114 18 170/105 (126) 99 Room Air 06/17/20 13:14 107 06/17/20 12:11 37.1 06/17/20 12:00 104 17 161/102 (121) 100 Room Air 06/17/20 11:22 100 Room Air 06/17/20 10:00 95 14 149/113 (125) 100 Room Air 06/17/20 09:00 90 19 150/111 (124) 100 Room Air 06/17/20 08:00 89 19 157/107 (124) 99 Room Air 06/17/20 07:45 100 Room Air 06/17/20 07:00 92 24 134/101 (112) 99 Room Air 06/17/20 07:00 96 06/17/20 06:00 101 13 147/106 (120) 99 Room Air 06/17/20 05:00 93 30 153/103 (120) 99 Room Air I & O 06/18/20 07:00 Intake Total 1240 ml Output Total 2250 ml Balance -1010 ml Height & Weight Height: 5'11.00" Weight: 126lbs. 0.0oz. 57.553164lf; 17.59 BMI Method:Stated General Appearance: No Apparent Distress, Thin HEENT: PERRL/EOMI Neck: Normal Inspection, Non Tender, Supple Respiratory: Lungs Clear, Normal Breath Sounds, No Accessory Muscle Use, No Respiratory Distress Cardiovascular: Regular Rate, Rhythm, No Edema, No JVD, No Murmur, Normal Peripheral Pulses Capillary Refill: Less Than 3 Seconds Gastrointestinal: normal bowel sounds, soft, no organomegaly; No guarding, No rebound; tenderness (epigastric, reduced compared to yesterday) Extremity: Normal Inspection, Non Tender, No Calf Tenderness, No Pedal Edema Neurologic/Psychiatric: Alert, Oriented x3, No Motor/Sensory Deficits Skin: Warm/Dry, Pallor Results Lab Laboratory Tests 06/16/20 05:00 06/16/20 08:30 06/16/20 10:39 06/16/20 13:41 06/16/20 17:45 06/16/20 21:56 06/17/20 01:47 06/17/20 05:31 06/17/20 10:04 Assessment/Plan Assessment/Plan DKA - on SC insulin, will attempt to eat today N/V - continue ondansetron YAS PÉREZ MED STUDENT Jun 18, 2020 04:43
[2020-06-18 05:07] LABS: BASOPHILS % (AUTO) 0 % (0-10); EOSINOPHILS # (AUTO) 0.1 10^3/uL (0.0-0.3); EOSINOPHILS % (AUTO) 1 % (0-10); HEMATOCRIT 36 % (40-54); HEMOGLOBIN 12.4 G/DL (13.3-17.7); LYMPHOCYTES # (AUTO) 1.6 X 10^3 (1.0-4.0); LYMPHOCYTES % (AUTO) 17 % (12-44); MEAN CORPUSCULAR HEMOGLOBIN 28 PG (25-34); MEAN CORPUSCULAR HGB CONC 34 G/DL (32-36); MEAN CORPUSCULAR VOLUME 82 FL (80-99); MEAN PLATELET VOLUME 8.8 FL (7.4-10.4); MONOCYTES # (AUTO) 0.7 X 10^3 (0.0-1.0); MONOCYTES % (AUTO) 7 % (0-12); NEUTROPHILS # (AUTO) 6.8 X 10^3 (1.8-7.8); NEUTROPHILS % (AUTO) 75 % (42-75); PLATELET COUNT 210 10^3/uL (130-400); RED CELL DISTRIBUTION WIDTH 13.6 % (10.0-14.5); WHITE BLOOD COUNT 9.1 10^3/uL (4.3-11.0)
[2020-06-18 05:16] LABS: CHLORIDE 103 MMOL/L (98-107); POTASSIUM 3.8 MMOL/L (3.6-5.0); SODIUM 137 MMOL/L (135-145)
[2020-06-18 05:17] LABS: CALCIUM 8.4 MG/DL (8.5-10.1); GLUCOSE 93 MG/DL (70-105)
[2020-06-18 05:19] LABS: CARBON DIOXIDE 25 MMOL/L (21-32)
[2020-06-18 05:21] LABS: CREATININE SERUM 0.62 MG/DL (0.60-1.30); GFR ESTIMATED > 60
[2020-06-18 05:22] LABS: BUN/CREATININE RATIO 5
[2020-06-18] MEDS: inSUlin ASPART (NovoLOG) 1 UNIT/0.01 ML (CHARGE PER UNIT) SC SCH ×2 (05:34→12:12)
[2020-06-18 08:00] VITALS: BP 133/85
[2020-06-18] MEDS: lisINopril 10 MG (PRINIVIL) TABLET PO SCH (08:56)
[2020-06-18] MEDS: PANTOPRAZOLE 40 MG (PROTONIX) VIAL IV SCH (08:56)
[2020-06-18] MEDS ORDERED: cefTRIAXone FOR IV USE 1,000 MG in WATER (STERILE) FOR INJECTION 10 ML IV SCH (09:00)
--- NOTE | 2020-06-18 10:51 | Discharge Summary ---
Diagnosis/Chief Complaint Date of Admission Jun 15, 2020 at 23:00 Date of Discharge 06/18/2020 Admission Diagnosis Admission Diagnosis See problem list Discharge Diagnosis See below Problems/Diagnosis: (1) Diabetic ketoacidosis Assessment & Plan: - Patient initially admitted to the floor as he had normal labs and no anion gap, patient's condition continued to worsen and he was vomiting for over an hr with no response to medications. Repeat labs were consistent with DKA and patient was transferred up to ICU and started on insulin drip. He was given 2 additional liter NS bolus as his last pressure on the floor was 80/60s, Upon evaluation patient was tachycardic and tachypneic. Will get q4 hr labs until gap is closed. EICU consulted to help with management. 06/17: Insulin gtts stopped this AM, patient given levemir 10 units qhs, restart subcutaneous insulin 06/18: Patient started on home insulin and doing much better, tolerating normal diet Qualifiers: Qualified Codes: E10.10 - Type 1 diabetes mellitus with ketoacidosis without coma Status: Acute (2) Hypokalemia Assessment & Plan: - Continue to monitor closely as we correct the acidosis Status: Resolved Resolution Date/Time: 06/17/20 @ 16:19 (3) Intractable nausea and vomiting Status: Resolved Resolution Date/Time: 06/17/20 @ 16:19 Chief Complaint/HPI Chief Complaint/HPI 30 yo M with type I DM that presented to ER with N/V. He states that he has not been around anyone who has been sick. About 3 days ago he was no longer able to keep food down and it has been getting worse each day. He states that he has been taking his insulin but less then he normally does because he has not been eating. He has been trying to keep water down. Denies any cough no contact with any positive COVID cases. Discharge Summary-Simple/Stand Consultations Discharge Physical Examination Allergies: Coded Allergies: Penicillins (Verified Allergy, Unknown, 05/23/06) Vitals & I&Os Vital Sign - Last 12Hours Date Time Temp Pulse Resp B/P (MAP) Pulse Ox O2 Delivery O2 Flow Rate FiO2 06/18/20 09:00 Room Air 06/18/20 08:00 36.6 110 18 133/85 (101) 99 06/16/20 00:40 99.00 Intake and Output 06/18/20 00:00 Intake Total 1090 ml Output Total 1000 ml Balance 90 ml General Appearance: Alert, Oriented X3 HEENT: Mucous Memb Moist/[place] Respiratory: Clear to Auscultation, Normal Air Movement Cardiovascular: Regular Rate, No Murmurs Abdominal: Normal Bowel Sounds, Soft, No Tenderness, No Hepatosplenomegaly, No Masses Extremities: No Edema, No Tenderness/Swelling Skin: No Rashes, No Breakdown Neuro: Normal Speech, Strength at 5/5 X4 Ext, Sensation Intact, Cranial Nerves 3-12 NL Psych/Mental Status: Mental Status NL, Mood NL Hospital Course Was the Problem List Reviewed?: Yes See final discharge diagnosis. Discussion & Recommendations 30 yo M with known type I DM that presented with several days of N/V. Initially patient did not have any acidosis and had normal blood sugars. Patient then continue to vomit after getting to floor and labs revealed he was in DKA and was transferred up to ICU and started on insulin gtts. Patient's acidosis improved after being on the insulin gtts for 12 hrs and then was transitioned to his home insulin. Patient was stable and tolerating PO diet at time of discharge. Discharge Condition at discharge stable Instructions to patient/family Please see electronic discharge instructions given to patient. Discharge Medications Reviewed and agree with Discharge Medication list on patient's Discharge In struction sheet Clinical Quality Measures DVT/VTE Risk/Contraindication: Risk Factor Score Per Nursin RFS Level Per Nursing on Admit: 2=Moderate Copy Copies To 1: Roni VILLEGAS HOLLY R MD Jun 18, 2020 10:51
[2020-06-18] MEDS ORDERED: ONDA8TAB6 PO (10:53)
[2020-06-18] MEDS ORDERED: LISI10TA2 PO (10:53)
--- NOTE | 2020-06-18 10:54 | Discharge Summary ---
Discharge [facility] Reconcile Patient Problems Problems Reviewed?: Yes Discharge Medications New, Converted or Re-Newed RX: Transmitted to Pharmacy New Medications: Ondansetron HCl (Zofran) 8 Mg Tablet 8 MG PO q6hr, #30 TAB Lisinopril (Lisinopril) 10 Mg Tablet 10 MG PO DAILY, #30 TAB Continued Medications: Insulin Aspart (Novolog) 100 Unit/1 Ml Susp 10-12 UNIT SQ TIDAC, EACH USES 2 UNITS PER EVERY CARB Insulin Determir (Levemir) 1,000 Units/10 Ml Soln 10 UNITS SQ HS, EA LAST FILLED 11-21-2019 #2 VIALS / 100 DAY SUPPLY Patient Instructions Goal/Follow Up Appt: You have a hospital f.u appt with Roni Leiva on 06/24 @ 1140 AM Patient Instructions: - Make sure you are checking your blood sugars and taking your insulin Return to The [facility] For: - Worsening Nausea and Vomiting - Worsening abdominal pain - Unable to take medications Activity & Diet Discharge Diet: ADA Diet Activity as Tolerated: Yes Copy Copies To 1: Roni VILLEGAS HOLLY R MD Jun 18, 2020 10:54
--- NOTE | 2020-06-18 11:45 | NUR ---
THIS NURSE EDUCATED PT ON DISCHARGE INSTRUCTIONS AND HOME MEDICATIONS. PT STATED UNDERSTANDING. PT CALLED [facility] TO COME PICK HIM UP.
[2020-06-18 12:00] VITALS: BP 157/98
[2020-06-18 12:22] VITALS: BP 157/98
--- NOTE | 2020-06-18 13:22 | NUR ---
"RD ASSESSMENT PMHx: pneumonia; cardiomyopathy; DM(type1); hx of DKA PT INTERACTION: Pt was awake and pleasant during nutrition follow-up. Pt state he has started to slowly eat better since last assessment. Note avg PO intake <25% meals. Pt states no issues with nausea, vomiting, or constipation since last assessment. Pt states some issues with diarrhea since last assessment. Note last BM was 06/18 and pt not currently on bowel regimen per chart review. ABNORMAL NUTRITION-RELATED LAB VALUES LOW: BUN 3; Ca 8.4 HIGH: glu 121 Est. kcal needs: 1785 kcal | 35 kcal/kg Est. Pro needs: 61 g Pro | 1.2 g Pro/kg PES STATEMENT: Inadequate oral intake (NI-2.1) related to loss of appetite | avg PO intake <25% meals INTERVENTION: Continue with current diet order of Peptic Wirt diet, with modifier of consistent CHO restriction. Pt may benefit from nutrition supplementation if PO intake declines. Encouraged pt to eat when able. Will continue to follow and reassess as pt needs, intake, and status change. MONITOR/EVALUATE: PO Intake; Plan of Care; Hydration Status; Weight Status; Lab Values Nohelia Allen, MS, RD, LD"
[2020-06-18] MEDS ORDERED: SCOPOLAMINE 1.5 MG (TRANSDERM-SCOP) PATCH TOP SCH (21:00)
== END 2020-06-18 12:15 | disposition home or self-care (01) | DRG 638 ==
LOC: EDUNIT# 21:13 → ER 21:14 → 4TH 23:00 → ICU 06-16 08:10 → CSD 06-17 13:11 → 4TH 06-17 16:30
PROVIDERS: ADMIT Family Medicine; ATTEND Family Medicine
DX: E10.10 Type 1 diabetes mellitus with ketoacidosis without coma (principal); I42.9 Cardiomyopathy, unspecified; E87.6 Hypokalemia; E86.9 Volume depletion, unspecified; R11.2 Nausea with vomiting, unspecified; E10.43 Type 1 diabetes mellitus with diabetic autonomic (poly)neuropathy; E10.319 Type 1 diabetes mellitus with unspecified diabetic retinopathy without macular edema; F41.9 Anxiety disorder, unspecified; Z87.891 Personal history of nicotine dependence; Z87.01 Personal history of pneumonia (recurrent)
CPT/HCPCS: 36415; 71045; 80048; 80053; 80306; 81000; 82010; 82150; 82805; 82962; 83036; 83605; 83690; 83735; 84100; 85007; 85025; 85027; 87081; 96361; 96374; 96375; 96376

== ENCOUNTER 2020-09-18 08:28 | Inpatient (IN) | payer SELFPAY ==
[~2020-09-18] VITALS: Ht 180.3 cm; Wt 50.4 kg
[~2020-09-18 08:28] MED LIST changes: +LISI10TA2 PO; +ONDA8TAB6 PO
[2020-09-18] MEDS ORDERED: NS IV 1000 ML 2,000 ML ONE (08:41)
[2020-09-18] MEDS ORDERED: NS IV 1000 ML 1,000 ML IV ONE (08:45)
[2020-09-18] MEDS ORDERED: inSUlin (REGULAR) HUMAN 1 UNIT/0.01 ML (CHARGE PER UNIT) IV ONE ×4 (08:45→14:45)
[2020-09-18 08:47] LABS: BASOPHILS % (AUTO) 0 % (0-10); EOSINOPHILS % (AUTO) 0 % (0-10); HEMATOCRIT 37 % (40-54); HEMOGLOBIN 11.8 g/dL (13.3-17.7); LYMPHOCYTES # (AUTO) 2.2 10^3/uL (1.0-4.0); LYMPHOCYTES % (AUTO) 14 % (12-44); MEAN CORPUSCULAR HEMOGLOBIN 28 pg (25-34); MEAN CORPUSCULAR HGB CONC 32 g/dL (32-36); MEAN CORPUSCULAR VOLUME 86 fL (80-99); MEAN PLATELET VOLUME 9.8 fL (9.0-12.2); MONOCYTES # (AUTO) 0.6 10^3/uL (0.0-1.0); MONOCYTES % (AUTO) 4 % (0-12); NEUTROPHILS # (AUTO) 12.4 10^3/uL (1.8-7.8); NEUTROPHILS % (AUTO) 81 % (42-75); PLATELET COUNT 387 10^3/uL (130-400); WHITE BLOOD COUNT 15.3 10^3/uL (4.3-11.0)
[2020-09-18 08:58] LABS: ABG BASE EXCESS -9.7 MMOL/L (-2.5-2.5); ABG OXYGEN SATURATION 85 % (94-100); ABG PCO2 26 MMHG (35-45); ABG PH 7.37 (7.37-7.43); ABG PO2 51 MMHG (79-93); ABG TCO2 15.4 MMOL/L (21.0-31.0)
[2020-09-18 09:00] LABS: ALBUMIN 3.6 GM/DL (3.2-4.5); ALLENS TEST YES-POS; CHLORIDE 96 MMOL/L (98-107); INSPIRED O2 ROOM AIR; PATIENT TEMP 36.4; SODIUM 138 MMOL/L (135-145); VENTILATOR NO
[2020-09-18] MEDS ORDERED: ONDANSETRON 4 MG/2 ML (SDV) Z0FRAN IVP ONE (09:00)
[2020-09-18 09:01] LABS: CALCIUM 8.7 MG/DL (8.5-10.1)
[2020-09-18 09:02] LABS: TOTAL PROTEIN 6.2 GM/DL (6.4-8.2)
[2020-09-18 09:03] LABS: GLUCOSE 470 MG/DL (70-105)
[2020-09-18 09:04] LABS: BILIRUBIN,TOTAL 0.4 MG/DL (0.1-1.0)
[2020-09-18 09:06] LABS: ALKALINE PHOSPHATASE 85 U/L (40-136); CREATININE SERUM 1.59 MG/DL (0.60-1.30); GFR ESTIMATED 51
[2020-09-18 09:07] LABS: BUN/CREATININE RATIO 13
[2020-09-18 09:09] LABS: ALANINE AMINOTRANSFERASE 21 U/L (0-55); LIPASE 16 U/L (8-78)
[2020-09-18 09:21] LABS: BAND NEUTROPHILS 0 %; BASOPHILS % (MANUAL) 0 %; CARBON DIOXIDE 13 MMOL/L (21-32); EOSINOPHILS % (MANUAL) 0 %; LYMPHOCYTES % (MANUAL) 20 %; MONOCYTES % (MANUAL) 3 %; NEUTROPHILS % (MANUAL) 77 %
[2020-09-18 09:22] LABS: BURR CELLS MARKED; POIKILOCYTOSIS MARKED
[2020-09-18] MEDS ORDERED: inSUlin (REGULAR) HUMAN 1 UNIT/0.01 ML (CHARGE PER UNIT) SC ONE (10:00)
[2020-09-18] MEDS ORDERED: LACTATED RINGERS 1,000 ML IV ONE ×3 (10:00→13:45)
[2020-09-18] MEDS ORDERED: PROMETHAZINE INJ 25 MG/ML (PHENERGAN) AMP ONE (10:38)
[2020-09-18 10:48] LABS: BILIRUBIN,URINE 2+ (NEGATIVE); CLARITY,URINE CLEAR; COLOR,URINE YELLOW; GLUCOSE, URINE (UA) 3+ (NEGATIVE); KETONES,URINE 3+ (NEGATIVE); LEUKOCYTE ESTERASE ,URINE NEGATIVE (NEGATIVE); NITRITE,URINE NEGATIVE (NEGATIVE); PH,URINE 5.5 (5-9); PROTEIN,URINE TRACE (NEGATIVE)
[2020-09-18] MEDS ORDERED: PROMETHAZINE INJ 25 MG/ML (PHENERGAN) AMP IVP ONE (11:00)
[2020-09-18 11:07] LABS: AMPHETAMINE SCREEN, URINE NEGATIVE (NEGATIVE); BARBITURATE SCREEN URINE NEGATIVE (NEGATIVE); BENZODIAZEPINES SCREEN URINE NEGATIVE (NEGATIVE); CANNABINOID SCREEN, URINE POSITIVE (NEGATIVE); COCAINE SCREEN URINE NEGATIVE (NEGATIVE); METHADONE STAT NEGATIVE (NEGATIVE); METHAMPHETAMINE SCREEN URINE S NEGATIVE (NEGATIVE); OPIATE SCREEN URINE NEGATIVE (NEGATIVE); OXYCODONE STAT NEGATIVE (NEGATIVE); PROPOXYPHENE STAT NEGATIVE (NEGATIVE); TRICYCLIC ANTIDEPRESSANTS SCRE NEGATIVE (NEGATIVE)
[2020-09-18 11:30] LABS: BACTERIA,URINE TRACE /HPF; GRANULAR CASTS,URINE 0-2 /LPF; RBC,URINE 0-2 /HPF; SQUAMOUS EPITHELIAL CELL,UR RARE /HPF
[2020-09-18 12:55] LABS: CHLORIDE 104 MMOL/L (98-107); POTASSIUM 4.1 MMOL/L (3.6-5.0); SODIUM 141 MMOL/L (135-145)
[2020-09-18 12:57] LABS: CALCIUM 8.2 MG/DL (8.5-10.1); GLUCOSE 386 MG/DL (70-105)
[2020-09-18 12:58] LABS: CARBON DIOXIDE 13 MMOL/L (21-32)
[2020-09-18 13:01] LABS: CREATININE SERUM 1.32 MG/DL (0.60-1.30); GFR ESTIMATED > 60
[2020-09-18 13:02] LABS: BUN/CREATININE RATIO 14
[2020-09-18] MEDS ORDERED: LACTATED RINGERS 1,000 ML IV SCH (13:30)
--- NOTE | 2020-09-18 13:39 | Physical Therapy Progress Note ---
Therapy Progress Note Currently in ER. Will assess when in room. ROSA QUEVEDO PT Sep 18, 2020 13:39
--- NOTE | 2020-09-18 13:41 | ED General ---
General Chief Complaint: Glucose Problems Stated Complaint: HYPERGLYCEMIA Nursing Triage Note: PT BROUHGT IN BY [facility] FROM HOME FOR POSSIBLE DKA. PT IS A TYPE 1 DIABETIC. STATES BLOOD SUGAR AT HOME WAS IN THE 300s. PT IS COMPLAINING OF VOMITING AND PAIN ALL OVER. WAS GIVEN 4MG ZOFRAN BY EMS. Nursing Sepsis Screen: No Definite Risk Source of Information: Patient Exam Limitations: No Limitations History of Present Illness Date Seen by Provider: Sep 18, 2020 Time Seen by Provider: 08:35 Initial Comments This 30-year-old gentleman with type 1 diabetes presents to the emergency room with complaints of nausea and vomiting and hyperglycemia. Symptoms started last night. He reports blood sugars have been in the 300s despite taking insulin. He denies any fever, respiratory symptoms, loss of taste or smell, diarrhea, or other symptoms of acute infectious illness. Zofran 4 mg was administered by EMS. He is notably tachycardic during assessment. Allergies and Home Medications Allergies Coded Allergies: Penicillins (Verified Allergy, Unknown, 05/23/06) Home Medications Insulin Aspart 100 Unit/1 Ml Susp, 10-12 UNIT SQ TIDAC, (Reported) USES 2 UNITS PER EVERY CARB Insulin Determir 1,000 Units/10 Ml Soln, 10 UNITS SQ HS, (Reported) LAST FILLED 11-21-2019 #2 VIALS / 100 DAY SUPPLY Lisinopril 10 Mg Tablet, 10 MG PO DAILY Prescribed by: SHAMIKA FERMIN on 06/18/20 1053 Ondansetron HCl 8 Mg Tablet, 8 MG PO q6hr Prescribed by: SHAMIKA FERMIN on 06/18/20 1053 Patient Home Medication List Home Medication List Reviewed: Yes Review of Systems Review of Systems Constitutional: no symptoms reported EENTM: no symptoms reported Respiratory: no symptoms reported Cardiovascular: see HPI Gastrointestinal: see HPI Genitourinary: no symptoms reported Musculoskeletal: no symptoms reported Skin: no symptoms reported Psychiatric/Neurological: No Symptoms Reported Hematologic/Lymphatic: No Symptoms Reported Immunological/Allergic: no symptoms reported Past Iymqdpt-Hopsbd-Mwumqr Hx Past Med/Social Hx: Reviewed Nursing Past Med/Soc Hx Patient Social History Alcohol Use: Denies Use Recreational Drug Use: No Drug of Choice: MARIJUANA Smoking Status: Former Smoker Type Used: Cigarettes Former Smoker, Quit: Sep 28, 2012 2nd Hand Smoke Exposure: No Recent Foreign Travel: No Contact w/Someone Who Travel: No Recent Infectious Disease Expo: No Recent Hopitalizations: No Immunizations Up To Date Tetanus Booster (TDap): Unknown PED Vaccines UTD: No Date of Pneumonia Vaccine: Sep 15, 2017 Date of Influenza Vaccine: Sep 15, 2019 Seasonal Allergies Seasonal Allergies: No Past Medical History Surgeries: No Respiratory: Yes Pneumonia Currently Using CPAP: No Currently Using BIPAP: No Cardiac: Yes (CARDIOMYOPATHY DX 2017) Cardiomyopathy Neurological: No Reproductive Disorders: No Sexually Transmitted Disease: No HIV/AIDS: No Genitourinary: No Gastrointestinal: Yes (GASTROPARESIS) Musculoskeletal: No Endocrine: Yes (DX AGE 11, [place] 2001; MULTIPLE ADMITS FOR DKA) Diabetes, Insulin dep Cancer: No Did You Recieve Any Treatments: No Psychosocial: No Integumentary: Yes (WOUNDS TO LOWER LEGS-- REQUIRED WOUND CARE CLINIC TREATMENT) Blood Disorders: No Adverse Reaction/Blood Tranf: No Family Medical History Cardiovascular disease 19 FATHER Hypertension 19 FATHER Heart Disease, Cancer, Hypertension Physical Exam Vital Signs Vital Signs - First Documented 09/18/20 08:28 Temp 36.4 Pulse 104 Resp 20 B/P (MAP) 95/44 (61) Pulse Ox 94 O2 Delivery Room Air Capillary Refill : Less Than 3 Seconds Height, Weight, BMI Height: 5'11.00" Weight: 126lbs. 0.0oz. 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 Norm as Tested Skin: Normal Color, Warm/Dry Focused Exam Lactate Level 09/18/20 14:29: Lactic Acid Level Laboratory Tests Test 09/18/20 14:29 Progress/Results/Core Measures Suspected Sepsis Recent Fever Within 48 Hours: No Infection Criteria Present: None New/Unexplained Altered Menta: No Sepsis Screen: No Definite Risk SIRS Temperature: Pulse: 104 Respiratory Rate: 20 Laboratory Tests 09/18/20 08:36: White Blood Count 15.3H Blood Pressure 95 /44 Mean: 61 09/18/20 14:29: Laboratory Tests 09/18/20 08:36: Creatinine 1.59H, INR Comment 1.0, Platelet Count 387, Total Bilirubin 0.4 09/18/20 12:37: Creatinine 1.32H Results/Orders Lab Results Laboratory Tests Test 09/18/20 08:36 09/18/20 10:38 09/18/20 12:37 09/18/20 12:45 Range/Units White Blood Count 15.3 H 4.3-11.0 10^3/uL Red Blood Count 4.27 L 4.30-5.52 10^6/uL Hemoglobin 11.8 L 13.3-17.7 g/dL Hematocrit 37 L 40-54 % Mean Corpuscular Volume 86 80-99 fL Mean Corpuscular Hemoglobin 28 25-34 pg Mean Corpuscular Hemoglobin Concent 32 32-36 g/dL Red Cell Distribution Width 12.5 10.0-14.5 % Platelet Count 387 130-400 10^3/uL Mean Platelet Volume 9.8 9.0-12.2 fL Immature Granulocyte % (Auto) 1 % Neutrophils (%) (Auto) 81 H 42-75 % Lymphocytes (%) (Auto) 14 12-44 % Monocytes (%) (Auto) 4 0-12 % Eosinophils (%) (Auto) 0 0-10 % Basophils (%) (Auto) 0 0-10 % Neutrophils # (Auto) 12.4 H 1.8-7.8 10^3/uL Lymphocytes # (Auto) 2.2 1.0-4.0 10^3/uL Monocytes # (Auto) 0.6 0.0-1.0 10^3/uL Eosinophils # (Auto) 0.0 0.0-0.3 10^3/uL Basophils # (Auto) 0.0 0.0-0.1 10^3/uL Immature Granulocyte # (Auto) 0.1 0.0-0.1 10^3/uL Neutrophils % (Manual) 77 % Lymphocytes % (Manual) 20 % Monocytes % (Manual) 3 % Eosinophils % (Manual) 0 % Basophils % (Manual) 0 % Band Neutrophils 0 % Poikilocytosis MARKED [place] Cells MARKED Prothrombin Time 13.8 12.2-14.7 SEC INR Comment 1.0 0.8-1.4 Activated Partial Thromboplast Time 25 24-35 SEC Blood Gas Puncture Site LT RAD Blood Gas Patient Temperature 36.4 Arterial Blood pH 7.37 7.37-7.43 Arterial Blood Partial Pressure CO2 26 L 35-45 MMHG Arterial Blood Partial Pressure O2 51 L 79-93 MMHG Arterial Blood HCO3 15 *L 23-27 MMOL/L Arterial Blood Total CO2 15.4 L 21.0-31.0 MMOL/L Arterial Blood Oxygen Saturation 85 L 94-100 % Arterial Blood Base Excess -9.7 L -2.5-2.5 MMOL/L Bony Test YES-POS Blood Gas Ventilator Setting NO Blood Gas Inspired Oxygen ROOM AIR Sodium Level 138 141 135-145 MMOL/L Potassium Level 4.0 4.1 3.6-5.0 MMOL/L Chloride Level 96 L 104 98-107 MMOL/L Carbon Dioxide Level 13 L 13 L 21-32 MMOL/L Anion Gap 29 H 24 H 5-14 MMOL/L Blood Urea Nitrogen 20 H 19 H 7-18 MG/DL Creatinine 1.59 H 1.32 H 0.60-1.30 MG/DL Estimat Glomerular Filtration Rate 51 > 60 BUN/Creatinine Ratio 13 14 Glucose Level 470 *H 386 H 70-105 MG/DL Calcium Level 8.7 8.2 L 8.5-10.1 MG/DL Corrected Calcium 9.0 8.5-10.1 MG/DL Total Bilirubin 0.4 0.1-1.0 MG/DL Aspartate Amino Transf (AST/SGOT) 13 5-34 U/L Alanine Aminotransferase (ALT/SGPT) 21 0-55 U/L Alkaline Phosphatase 85 40-136 U/L Myoglobin 67.1 10.0-92.0 NG/ML C-Reactive Protein High Sensitivity 0.20 0.18 0.00-0.50 MG/DL Total Protein 6.2 L 6.4-8.2 GM/DL Albumin 3.6 3.2-4.5 GM/DL Lipase 16 8-78 U/L Serum Alcohol < 10 <10 MG/DL Urine Color YELLOW Urine Clarity CLEAR Urine pH 5.5 5-9 Urine Specific [place] 1.015 L 1.016-1.022 Urine Protein TRACE H NEGATIVE Urine Glucose (UA) 3+ H NEGATIVE Urine Ketones 3+ H NEGATIVE Urine Nitrite NEGATIVE NEGATIVE Urine Bilirubin 2+ H NEGATIVE Urine Urobilinogen 0.2 < = 1.0 MG/DL Urine Leukocyte Esterase NEGATIVE NEGATIVE Urine RBC (Auto) 2+ H NEGATIVE Urine RBC 0-2 /HPF Urine WBC 5-10 H /HPF Urine Squamous Epithelial Cells RARE /HPF Urine Crystals NONE /LPF Urine Bacteria TRACE /HPF Urine Casts PRESENT /LPF Urine Hyaline Casts 2-5 H /LPF Urine Granular Casts 0-2 H /LPF Urine Mucus SMALL H /LPF Urine Culture Indicated NO Urine Opiates Screen NEGATIVE NEGATIVE Urine Oxycodone Screen NEGATIVE NEGATIVE Urine Methadone Screen NEGATIVE NEGATIVE Urine Propoxyphene Screen NEGATIVE NEGATIVE Urine Barbiturates Screen NEGATIVE NEGATIVE Ur Tricyclic Antidepressants Screen NEGATIVE NEGATIVE Urine Phencyclidine Screen NEGATIVE NEGATIVE Urine Amphetamines Screen NEGATIVE NEGATIVE Urine Methamphetamines Screen NEGATIVE NEGATIVE Urine Benzodiazepines Screen NEGATIVE NEGATIVE Urine Cocaine Screen NEGATIVE NEGATIVE Urine Cannabinoids Screen POSITIVE H NEGATIVE Magnesium Level 2.0 1.6-2.4 MG/DL Lactate Dehydrogenase 131 125-220 U/L Procalcitonin 0.32 H <0.10 NG/ML Glucometer 347 H 70-110 MG/DL Test 09/18/20 12:48 09/18/20 13:43 09/18/20 14:29 Range/Units Glucometer 354 H 70-110 MG/DL Coronavirus 2019 ([facility]ADE) Negative Negative Micro Results Microbiology 09/18/20 Influenza Types A,B Antigen ([facility]) - Final, Complete My Orders Orders - ANATOLY SHAFER MD Cbc With Automated Diff (09/18/20 08:35) Comprehensive Metabolic Panel (09/18/20 08:35) Ua Culture If Indicated (09/18/20 08:35) Myoglobin Serum (09/18/20 08:35) Ed Iv/Invasive Line Start (09/18/20 08:35) Ekg Tracing (09/18/20 08:35) Monitor-Rhythm Ecg Trace Only (09/18/20 08:35) Insulin (Regular) Human (Novolin R (Per (09/18/20 08:45) Alcohol (09/18/20 08:40) Drug Screen Stat (Urine) (09/18/20 08:40) Lipase (09/18/20 08:40) Ed Iv/Invasive Line Start (09/18/20 08:43) Ns Iv 1000 Ml (Sodium Chloride 0.9%) (09/18/20 08:45) Ns Iv 1000 Ml (Sodium Chloride 0.9%) (09/18/20 08:41) Manual Differential (09/18/20 08:36) Arterial Blood Gas (09/18/20 08:52) Ondansetron Injection (Zofran Injectio (09/18/20 09:00) Accucheck Stat ONCE (09/18/20 09:18) Accucheck Stat ONCE (09/18/20 09:47) Basic Metabolic Panel (09/18/20 12:30) Magnesium (09/18/20 12:30) Insulin (Regular) Human (Novolin R (Per (09/18/20 10:00) Lactated Ringers (Lr 1000 Ml Iv Solution (09/18/20 10:00) Promethazine Injection (Phenergan Injec (09/18/20 10:38) Insulin (Regular) Human (Novolin R (Per (09/18/20 11:00) Accucheck Stat ONCE (09/18/20 10:53) Accucheck Stat ONCE (09/18/20 10:53) Accucheck Stat ONCE (09/18/20 10:53) Promethazine Injection (Phenergan Injec (09/18/20 11:00) Physical Therapy Order (09/18/20 12:51) Weight Bearing As Tolerated (09/18/20 12:51) Insulin (Regular) Human (Novolin R (Per (09/18/20 13:15) Blood Culture (09/18/20 13:30) Sputum Culture (09/18/20 13:30) Protime With Inr (09/18/20 13:30) Partial Thromboplastin Time (09/18/20 13:30) Chest 1 View, Ap/Pa Only (09/18/20 13:30) Vital Signs Adult Sepsis Patie Q15M (09/18/20 13:30) O2 (09/18/20 13:30) Remove Rings In Anticipation O (09/18/20 13:30) Lactic Acid Analyzer (09/18/20 13:30) Hs C Reactive Protein (09/18/20 13:30) Lactated Ringers (Lr 1000 Ml Iv Solution (09/18/20 13:28) Lactated Ringers (Lr 1000 Ml Iv Solution (09/18/20 13:45) Hs C Reactive Protein (09/18/20 13:35) Procalcitonin (Pct) (09/18/20 13:53) LDH (09/18/20 13:53) Influenza A And B Antigens (09/18/20 13:53) Covid 19 Inhouse Test (09/18/20 13:53) Beta Hydroxybutyrate (09/18/20 14:36) Insulin Determir (Per Unit) (Levemir (Pe (09/18/20 14:45) Insulin (Regular) Human (Novolin R (Per (09/18/20 14:45) Medications Given in ED Current Medications Medications Dose Ordered Sig/Luis Route Start Time Stop Time Status Last Admin Dose Admin Insulin Human Regular 5 unit ONCE ONCE IV 09/18/20 11:00 09/18/20 11:01 DC 09/18/20 10:35 5 UNIT Insulin Human Regular 5 unit ONCE ONCE IV 09/18/20 13:15 09/18/20 13:16 DC 09/18/20 13:28 5 UNIT Insulin Human Regular 10 unit ONCE ONCE IV 09/18/20 08:45 09/18/20 08:47 DC 09/18/20 08:49 10 UNIT Lactated Ringer's 1,000 ml @ 0 mls/hr Q0M ONCE IV 09/18/20 10:00 09/18/20 10:01 DC 09/18/20 10:35 0 MLS/HR Lactated Ringer's 1,000 ml @ 0 mls/hr Q0M ONCE IV 09/18/20 13:45 09/18/20 13:46 DC 09/18/20 13:30 0 MLS/HR Ondansetron HCl 4 mg ONCE ONCE IVP 09/18/20 09:00 09/18/20 09:01 DC 09/18/20 09:06 4 MG Promethazine HCl 25 mg STK-MED ONCE .ROUTE 09/18/20 10:38 09/18/20 10:40 DC 09/18/20 10:45 25 MG Sodium Chloride 1,000 ml @ 0 mls/hr Q0M ONCE IV 09/18/20 08:45 09/18/20 08:47 DC 09/18/20 08:49 1,000 MLS/HR Vital Signs/I&O 09/18/20 08:28 Temp 36.4 Pulse 104 Resp 20 B/P (MAP) 95/44 (61) Pulse Ox 94 O2 Delivery Room Air Capillary Refill : Less Than 3 Seconds Blood Pressure Mean: 61 Point of Care Testing Finger Stick Blood Glucose: 354 Blood Glucose Action Taken: RN notified Progress Note #1: Time: 13:38 Progress Note Patient was found to have DKA. He has now been treated with 3 doses of IV insulin (10 units, 5 units, and 5 units) in addition to the insulin he took just prior to arrival. He is now also receiving his fourth and fifth bag of IV fluids. He still remains tachycardic and his blood pressures have now become hypotensive. If he does not resuscitate his blood pressures after these 2 L of fluid, we will consider pressors. We will look for sources of infection and add an influenza and COVID-19 swab. He is still being held in the emergency room as an ICU bed is not yet available. There was consideration for transfer to [facility] but his declining blood pressures do not make him a good candidate for that transfer. Progress Note #2: Time: 14:53 Progress Note Blood pressures resuscitated nicely with the fourth and fifth liters of IV fluid. Blood sugars have remained in the 300+ range. Rapid Covid and influenza screens were negative. Case was reviewed with Dr. García. She would like to manage his DKA on the medical floor using subcutaneous insulin since his electrolytes and pH are stable. A dose of Levemir 10 units subcutaneously and a dose of regular insulin IV 10 units is being given in the ER prior to admission. It was noted in patient's chart that he has a history of atrial tachycardia but he is in sinus tachycardia at present. He has history of cardiomyopathy but coronary artery disease was ruled out by cardiac cath in 2017. CRP and pro flavio citonin levels would suggest he does not have an infectious etiology triggering the DKA. He does have a long history of marijuana use which may have triggered the vomiting and may have also triggered the DKA. ECG Initial ECG Impression Date: Sep 18, 2020 Initial ECG Impression Time: 08:42 Initial ECG Rate: 136 Initial ECG Rhythm: S.Tach Comment Sinus tachycardia with no ST elevation. Subtle ST depression. No abnormal intervals or axis deviation. Diagnostic Imaging Diagonstic Imaging: Xray Plain Films/CT/US/NM/MRI: chest Comments NAME: CHEMO WEISS [facility] REC#: [id number] PT STATUS: REG ER : 1990 PHYSICIAN: ANATOLY SHAFER MD ADMIT DATE: 09/18/20/ER Draft Date of Exam:09/18/20 CHEST 1 VIEW, AP/PA ONLY INDICATION: Diabetic ketoacidosis and possible sepsis. Frontal chest obtained at 02:13 p.m. and compared 06/17/2020. The heart and mediastinal silhouette are normal in appearance. The lungs appear clear. There is no pneumothorax or pleural fluid. IMPRESSION: Negative chest, without change from the prior study. Dictated on workstation # [id number] Dict: 09/18/20 1415 Trans: 09/18/20 1418 [facility] [id number] Interpreted by: RAJENDRA RUSSO MD Departure Communication (Admissions) Time/Spoke to Admitting Phy: 14:22 Dr. García Impression Primary Impression: DKA (diabetic ketoacidoses) Qualified Codes: E10.10 - Type 1 diabetes mellitus with ketoacidosis without coma Additional Impressions: Nausea & vomiting Qualified Codes: R11.2 - Nausea with vomiting, unspecified Marijuana use Disposition: ADMITTED INPATIENT Condition: Improved Admissions Decision to Admit Reason: Admit from ER (General) Decision to Admit/Date: Sep 18, 2020 Time/Decision to Admit Time: 13:30 Departure-Patient Inst. Referrals: HILARIO FISHMAN DO (PCP) Primary Care Physician EMIL TORRES (Family) Primary Care Physician ANATOLY SHAFER MD Sep 18, 2020 13:41
[2020-09-18 13:50] LABS: PROTHROMBIN TIME PATIENT 13.8 SEC (12.2-14.7)
--- NOTE | 2020-09-18 14:18 | Diagnostic Imaging Report ---
INDICATION: Diabetic ketoacidosis and possible sepsis. Frontal chest obtained at 02:13 p.m. and compared 06/17/2020. The heart and mediastinal silhouette are normal in appearance. The lungs appear clear. There is no pneumothorax or pleural fluid. IMPRESSION: Negative chest, without change from the prior study. Dictated by: Dictated on workstation # [id number]
[2020-09-18 16:00] VITALS: BP 149/82
--- NOTE | 2020-09-18 16:00 | NUR ---
CHEMO WEISS admitted to room 413-1, with an admitting diagnosis of DKA, NAUSE AND VOMITING, on 09/18/20 from ED via BED, accompanied by STAFF.CHEMO WEISS introduced to surroundings, call light, bed controls, phone, TV, temperature control, lights, meal times, smoking policy, visitor policy, side rail policy, bathrooms and showers. Patient Rights given to patient in the handbook. CHEMO WEISS verbalizes understanding that [facility] is not responsible for the loss or damage to any personal effects or valuables that are kept in the patients posession during their hospitalization. The following Patient Care Plans were discussed with the PATIENT: Discharge Planning, KNOWLEDGE AND DKA. CHEMO WEISS verbalizes understanding of Interdisciplinary Patient Education. Patient and/or family were informed about the Rapid Response Team and its purpose.
[2020-09-18] MEDS ORDERED: NS IV 1000 ML 1,000 ML ONE (16:01)
--- NOTE | 2020-09-18 16:09 | NUR ---
NORMAL SALINE STARTED AT 250 ML IN RIGHT FOREARM, DENIES PAIN OR SOB, DR LYNN HERE, TREMORS OF ARMS, INSTRUCTED TO USE URINEAL.
--- NOTE | 2020-09-18 16:37 | History & Physical-Hospitalist ---
History of Present Illness HPI/Chief Complaint 30-year-old white male with labile type 1 diabetes presents with 24-hour history of nausea and vomiting and hyperglycemia. Serum bicarb is low however pH is normal electrolytes are within normal limits. His blood pressure was initially low but he is received I think 4 L of normal saline and his blood pressure is becoming more stable. He is admitted to the floor because of the normal pH on his ABG he does have 3+ ketones Source: patient Exam Limitations: clinical condition Date Seen 09/18/20 Time Seen by a Provider: 16:30 Attending Physician Mayra Lynn MD PCP Kamala Alonzo DO Referring Physician Date of Admission Sep 18, 2020 at 14:42 Home Medications & Allergies Home Medications Reviewed patient Home Medication Reconciliation performed by pharmacy medication reconciliations prosthetic lab technician and/or nursing. Patients Allergies have been reviewed. Allergies Allergies Coded Allergies Penicillins (Verified Allergy, Unknown, 05/23/06) Past Sscddpn-Cjlyqp-Shvimk Hx Past Med/Social Hx: Reviewed Nursing Past Med/Soc Hx Patient Social History Marrital Status: single Employed/Student: unemployed Alcohol Use: Denies Use Recreational Drug Use: No Drug of Choice: MARIJUANA Smoking Status: Former Smoker Former Smoker, Quit: Sep 28, 2012 Type Used: Cigarettes 2nd Hand Smoke Exposure: No Recent Foreign Travel: No Contact w/other who traveled: No Recent Hopitalizations: No Recent Infectious Disease Expo: No Immunizations Up To Date Tetanus Booster (TDap): Unknown Pediatric: No Date of Pneumonia Vaccine: Sep 15, 2017 Date of Influenza Vaccine: Sep 15, 2019 Seasonal Allergies Seasonal Allergies: No Past Medical History Currently Using CPAP: No Currently Using BIPAP: No Cardiac: Cardiomyopathy Reproductive: No Sexually Transmitted Disease: No HIV/AIDS: No Endocrine: Diabetes, Insulin dep Did You Recieve Any Treatments: No History of Blood Disorders: No Adverse Reaction to Blood Ryan: No Family History Cardiovascular disease 19 FATHER Hypertension 19 FATHER Heart Disease, Cancer, Hypertension Review of Systems Constitutional: see HPI, weakness EENTM: no symptoms reported Respiratory: no symptoms reported Cardiovascular: no symptoms reported Gastrointestinal: abdominal pain, nausea, vomiting Skin: no symptoms reported Physical Exam Physical Exam Vital Signs Vital Signs - First Documented 09/18/20 08:28 Temp 36.4 Pulse 104 Resp 20 B/P (MAP) 95/44 (61) Pulse Ox 94 O2 Delivery Room Air Capillary Refill : Less Than 3 Seconds Height, Weight, BMI Height: 5'11.00" Weight: 126lbs. 0.0oz. 57.646065dz; 17.00 BMI Method:Stated General Appearance: Cachetic HEENT: Normal ENT Inspection Neck: Full Range of Motion, Non Tender, Supple Respiratory: Lungs Clear, Normal Breath Sounds, No Accessory Muscle Use, No Respiratory Distress Cardiovascular: Tachycardia Gastrointestinal: Normal Bowel Sounds, Non Tender, Soft Extremity: Normal Capillary Refill, Non Tender, No Calf Tenderness Neurologic/Psychiatric: Alert, Oriented x3, No Motor/Sensory Deficits, Depressed Affect Skin: Cool Results Results/Procedures Labs Laboratory Tests 09/18/20 08:36 09/18/20 12:37 Patient resulted labs reviewed. Assessment/Plan Admission Diagnosis Diabetic ketoacidosis Brittle type 1 diabetes Patient currently stable to be kept on the floor because the normal pH believe that this can be fluid resuscitated with IV insulin and close monitoring of his blood work. Admission Status: Observation MAYRA LYNN MD Sep 18, 2020 16:37
[2020-09-18] MEDS ORDERED: POTASSIUM CL 10MEQ/50ML IVPB 50 ML IV SCH (17:30)
[2020-09-18] MEDS ORDERED: NS IV 1000 ML 1,000 ML IV SCH (17:30)
[2020-09-18] MEDS ORDERED: PROMETHAZINE INJ 25 MG/ML (PHENERGAN) AMP IV PRN (17:30)
[2020-09-18 17:33] LABS: CHLORIDE 107 MMOL/L (98-107); POTASSIUM 3.7 MMOL/L (3.6-5.0); SODIUM 140 MMOL/L (135-145)
[2020-09-18 17:35] LABS: GLUCOSE 188 MG/DL (70-105)
[2020-09-18 17:36] LABS: CARBON DIOXIDE 15 MMOL/L (21-32)
[2020-09-18 17:39] LABS: CREATININE SERUM 1.08 MG/DL (0.60-1.30); GFR ESTIMATED > 60
[2020-09-18 17:40] LABS: BUN/CREATININE RATIO 16
[2020-09-18] MEDS: NS IV 1000 ML 1,000 ML IV SCH ×2 (17:41→21:33)
[2020-09-18] MEDS: D5 1/2 NS 1000 ML IV SOLUTION 1,000 ML IV SCH ×2 (17:42→21:33)
[2020-09-18] MEDS: POTASSIUM CL 10MEQ/50ML IVPB 50 ML IV SCH ×4 (17:43→23:45)
--- NOTE | 2020-09-18 17:43 | NUR ---
BLOOD SUGAR 169, IV FLUIDS CHANGED TO D51/2 NS TO INFUSE AT 250ML, HOURLY BLOOD SUGARS DONE, HOURLY BMP ORDERED BY DR LYNN, HEART RATE 142 AT ADMISSION, DR LYNN INFORMED. KCL INFUSING AT 25ML HOUR.
[2020-09-18] MEDS ORDERED: CATHETER FLUSH 10 ML SYR IV PRN (17:45)
[2020-09-18 18:00] VITALS: BP 127/67
[2020-09-18] MEDS ORDERED: inSUlin ASPART (NovoLOG) 1 UNIT/0.01 ML (CHARGE PER UNIT) SC SCH (18:00)
[2020-09-18 18:37] LABS: CHLORIDE 108 MMOL/L (98-107); POTASSIUM 4.7 MMOL/L (3.6-5.0); SODIUM 140 MMOL/L (135-145)
[2020-09-18 18:38] LABS: CALCIUM 7.9 MG/DL (8.5-10.1)
[2020-09-18 18:39] LABS: GLUCOSE 197 MG/DL (70-105)
[2020-09-18 18:40] LABS: CARBON DIOXIDE 13 MMOL/L (21-32)
[2020-09-18 18:42] LABS: CREATININE SERUM 1.04 MG/DL (0.60-1.30); GFR ESTIMATED > 60
[2020-09-18 18:43] LABS: BUN/CREATININE RATIO 16
[2020-09-18] MEDS: ONDANSETRON 4 MG/2 ML (SDV) Z0FRAN IV PRN ×2 (18:44→23:41)
--- NOTE | 2020-09-18 18:44 | NUR ---
BMP RESULTS CALLED TO DR LYNN, BLOOD SUGAR 197, ORDER GIVEN TO INFUSE 500ML NORMAL SALINE BOLUS, INSTRUCTED NURSE TO CALL RESULTS OF HOURLY BMP AND BLOOD SUGARS TO HER. FOR ORDERS. D5 1/2 NS CONTINUED AT 250ML HOUR AND KCL CONTINUED AT 5MEQ HOUR, PATIENT ALERT, C/O NAUSEA, VOIDED DARK CHAVA COLOR URINE
[2020-09-18] MEDS ORDERED: NS IV 500 ML 500 ML IV SCH (18:45)
[2020-09-18 19:24] LABS: CHLORIDE 107 MMOL/L (98-107); POTASSIUM 4.4 MMOL/L (3.6-5.0); SODIUM 140 MMOL/L (135-145)
[2020-09-18 19:25] LABS: GLUCOSE 221 MG/DL (70-105)
[2020-09-18 19:27] LABS: CARBON DIOXIDE 13 MMOL/L (21-32)
[2020-09-18 19:29] LABS: CREATININE SERUM 1.07 MG/DL (0.60-1.30); GFR ESTIMATED > 60
[2020-09-18 19:30] LABS: BUN/CREATININE RATIO 16
[2020-09-18 19:31] VITALS: BP 135/83
[2020-09-18] MEDS ORDERED: inSUlin (REGULAR) HUMAN 1 UNIT/0.01 ML (CHARGE PER UNIT) IV NR (20:15)
[2020-09-18 20:38] LABS: CHLORIDE 108 MMOL/L (98-107); POTASSIUM 4.6 MMOL/L (3.6-5.0); SODIUM 140 MMOL/L (135-145)
[2020-09-18 20:39] LABS: CALCIUM 7.7 MG/DL (8.5-10.1)
[2020-09-18 20:40] LABS: GLUCOSE 246 MG/DL (70-105)
[2020-09-18 20:41] LABS: CARBON DIOXIDE 16 MMOL/L (21-32)
[2020-09-18 20:44] LABS: CREATININE SERUM 1.01 MG/DL (0.60-1.30); GFR ESTIMATED > 60
[2020-09-18 20:45] LABS: BUN/CREATININE RATIO 16
[2020-09-18] MEDS: FAMOTIDINE 20MG/2ML IV (PEPCID) IV SCH (20:52)
[2020-09-18 21:52] VITALS: BP 114/64
[2020-09-18 23:42] VITALS: BP 160/88
[2020-09-18 23:44] LABS: CHLORIDE 105 MMOL/L (98-107); POTASSIUM 4.2 MMOL/L (3.6-5.0); SODIUM 137 MMOL/L (135-145)
[2020-09-18 23:45] LABS: CALCIUM 7.7 MG/DL (8.5-10.1)
[2020-09-18 23:46] LABS: GLUCOSE 240 MG/DL (70-105)
[2020-09-18 23:47] LABS: CARBON DIOXIDE 19 MMOL/L (21-32)
[2020-09-18 23:50] LABS: CREATININE SERUM 0.91 MG/DL (0.60-1.30); GFR ESTIMATED > 60
[2020-09-18 23:51] LABS: BUN/CREATININE RATIO 15
--- NOTE | 2020-09-19 00:10 | NUR ---
1999- BMP RESULT AND VITAL SIGNS CALLED BACK TO DR LYNN. NEW ORDER TO GIVE 6 UNITS OF REGULAR INSULIN IV AND CALLED HER BACK WITHIN AND HOUR. 2044. LABS REPORT BACK TO DR LYNN. ALSO IT WAS INFORMED THAT LABS WERE DRAWN BEFORE REGULAR INSULIN WAS GIVEN. ORDERS GIVEN TO DC Q1HR BLOOD SUGAR AND TO CHECK SUGAR AT 0000. PT A/O. D5 1/2 NS CONTINUED AT 250 ML/HR 1150 BMP RESULT CALLED BACK TO DR LYNN. NO NEW ORDERS JUST TO CHECK LABS AT 0500 IN THE MORNING. CHANGED PT TO Q4HR VS PER
[2020-09-19] MEDS: NS IV 1000 ML 1,000 ML IV SCH ×5 (01:48→18:03)
[2020-09-19] MEDS: D5 1/2 NS 1000 ML IV SOLUTION 1,000 ML IV SCH ×4 (01:49→20:58)
[2020-09-19] MEDS: POTASSIUM CL 10MEQ/50ML IVPB 50 ML IV SCH ×9 (01:49→23:12)
[2020-09-19 01:50] VITALS: BP 176/92
--- NOTE | 2020-09-19 03:45 | NUR ---
DR LYNN CALLED AND ORDER TO DO STAT BLOOD SUGAR AND BMP ON PT. BLOOD SUGAR 225 AND REPORTED BACK TO . IV FLUIDS STILL D5 1/2 NS AND GOING T SAME RATE 250ML/HR CALLED LAB AND LET THEM NOW ABOUT STAT BMP. WILL CALL BACK WITH BMP REPORT
[2020-09-19 04:03] VITALS: BP 164/92
[2020-09-19 04:11] LABS: BASOPHILS % (AUTO) 0 % (0-10); EOSINOPHILS % (AUTO) 0 % (0-10); HEMATOCRIT 33 % (40-54); HEMOGLOBIN 10.8 g/dL (13.3-17.7); LYMPHOCYTES # (AUTO) 1.6 10^3/uL (1.0-4.0); LYMPHOCYTES % (AUTO) 10 % (12-44); MEAN CORPUSCULAR HEMOGLOBIN 28 pg (25-34); MEAN CORPUSCULAR HGB CONC 33 g/dL (32-36); MEAN CORPUSCULAR VOLUME 85 fL (80-99); MEAN PLATELET VOLUME 9.2 fL (9.0-12.2); MONOCYTES # (AUTO) 0.8 10^3/uL (0.0-1.0); MONOCYTES % (AUTO) 5 % (0-12); NEUTROPHILS # (AUTO) 13.5 10^3/uL (1.8-7.8); NEUTROPHILS % (AUTO) 85 % (42-75); PLATELET COUNT 211 10^3/uL (130-400); WHITE BLOOD COUNT 15.9 10^3/uL (4.3-11.0)
[2020-09-19 04:19] LABS: ALBUMIN 3.1 GM/DL (3.2-4.5)
[2020-09-19 04:20] LABS: CHLORIDE 104 MMOL/L (98-107); POTASSIUM 4.4 MMOL/L (3.6-5.0); SODIUM 134 MMOL/L (135-145)
[2020-09-19 04:21] LABS: CALCIUM 7.8 MG/DL (8.5-10.1)
[2020-09-19 04:22] LABS: GLUCOSE 279 MG/DL (70-105); TOTAL PROTEIN 5.3 GM/DL (6.4-8.2)
[2020-09-19 04:23] LABS: CARBON DIOXIDE 20 MMOL/L (21-32)
[2020-09-19 04:24] LABS: BILIRUBIN,TOTAL 0.3 MG/DL (0.1-1.0)
[2020-09-19 04:25] LABS: ALKALINE PHOSPHATASE 72 U/L (40-136)
[2020-09-19 04:26] LABS: GFR ESTIMATED > 60
[2020-09-19 04:27] LABS: BUN/CREATININE RATIO 12
[2020-09-19 04:29] LABS: ALANINE AMINOTRANSFERASE 15 U/L (0-55); MAGNESIUM 1.7 MG/DL (1.6-2.4)
[2020-09-19] MEDS ORDERED: inSUlin ASPART (NovoLOG) 1 UNIT/0.01 ML (CHARGE PER UNIT) SC ONE (04:30)
--- NOTE | 2020-09-19 04:30 | NUR ---
BMP RESULTS CALLED BACK TO DR LYNN. PER DR ORDERS, IV FLUIDS CHANGED TO NS AT 250 ML/HR, HOURLY BLOOD SUGAR, TO GIVE 10 UNITS OF NOVOLOG SUBCUTANEOUS AND BMP ORDER AT 0800. NOTIFIED DR IF BLOOD SUGAR IS <150 OR >300.
[2020-09-19] MEDS ORDERED: inSUlin ASPART (NovoLOG) 1 UNIT/0.01 ML (CHARGE PER UNIT) ONE (04:32)
--- NOTE | 2020-09-19 06:32 | NUR ---
BLOOD SUGAR 125. DR LNYN NOTIFIED. IV FLUID SWITCHED TO D5 AT 250 ML/HR PER
[2020-09-19 08:17] LABS: BUN/CREATININE RATIO 13; CALCIUM 8.1 MG/DL (8.5-10.1); CARBON DIOXIDE 21 MMOL/L (21-32); CHLORIDE 107 MMOL/L (98-107); GFR ESTIMATED > 60; GLUCOSE 163 MG/DL (70-105); POTASSIUM 4.2 MMOL/L (3.6-5.0); SODIUM 138 MMOL/L (135-145)
[2020-09-19] MEDS: FAMOTIDINE 20MG/2ML IV (PEPCID) IV SCH ×2 (08:20→20:43)
[2020-09-19] MEDS: ONDANSETRON 4 MG/2 ML (SDV) Z0FRAN IV PRN ×3 (08:20→17:53)
--- NOTE | 2020-09-19 09:31 | Physical Therapy Evaluation ---
PT Evaluation-General Medical Diagnosis Admission Date Sep 18, 2020 at 14:42 Medical Diagnosis: DKA; N/V Onset Date: Sep 18, 2020 Therapy Diagnosis Therapy Diagnosis: weakness Height/Weight Height (Feet): 5 Height (Inches): 11.00 Weight (Pounds): 126 Weight (Ounces): 0.0 Precautions Precautions/Isolations: Standard Precautions Referral Reason for Referral: Evaluation/Treatment Medical History Pertinent Medical History: DM Current History Admitted with DKA and N/V Reviewed History: Yes Social History Home: Single Level Current Living Status: Other Family Entry Into Home: Stairs With Railing Prior Prior Level of Function SCALE: Activities may be completed with or without assistive devices. 9-Evbxaakjie-bglfduo completes the activity by him/herself with no assistance from a helper. 5-Set-up or Clean-up Assistance-helper sets up or cleans up; patient completes activity. [place] assists only prior to or following the activity. 4-Supervision or Touching Assistance-helper provides verbal cues and/or touching/steadying and/or contact guard assistance as patient completes activity. Assistance may be provided throughout the activity or intermittently. 3-Partial/Moderate Assistance-helper does LESS THAN HALF the effort. [place] lifts, holds or supports trunk or limbs, but provides less than half the effort. 2-Substantial/Maximal Assistance-helper does MORE THAN HALF the effort. [place] lifts or holds trunk or limbs and provides more than half the effort. 4-Wghqnqagz-sbbraa does ALL the effort. Patient does none of the effort to complete the activity. Or, the assistance of 2 or more helpers is required for the patient to complete the activity. If activity was not attempted, code reason: 7-Patient Refused. 9-Not Applicable-not attempted and the patient did not perform the activity before the current illness, exacerbation or injury. 10-Not Attempted due to Environmental Limitations-(lack of equipment, weather restraints, etc.). 88-Not Attempted due to Medical Conditions or Safety Concerns. Bed Mobility: 6 Transfers (B,C,W/C): 6 Gait: 6 Indoor Mobility (Ambulation): Independent Stairs: Independent PT Evaluation-Current Subjective Agrees to get out of bed to chair. Feeling better but not 100% yet. Objective Patient Orientation: Person, Place, Time, Situation ROM/Strength ROM Lower Extremities WNL Strength Lower Extremities WFL Integumentary/Posture Integumentary intact Bowel Incontinence: No Bladder Incontinence: No Neuromuscular (Tone, Coordination, Reflexes) intact Sensory Vision: Functional Hearing: Functional Sensation Right Lower Extremit: Intact Sensation Left Lower Extremity: Intact Transfers Roll Left to Right (QC): 5 Sit to Lying (QC): 5 Lying to Sitting/Side of Bed(Q: 5 Sit to Stand (QC): 5 Chair/Cps-ol-Fssrt Xfer(QC): 5 Pt able to get out of bed and walk a few steps to the chair without assist; supervision since it was his first time being seen by this therapist Balance Sitting Static: Normal Sitting Dynamic: Normal Standing Static: Normal Standing Dynamic: Normal Treatment Out of bed to chair. Assessment/Needs Pt will benefit from short term PT to address functional mobility and safety. Once he is up safely, will DC from PT. Rehab Potential: Good PT Nursing Home Goals Nursing Home Goals PT Nursing Home Goals Time Frame: Sep 25, 2020 Sit to Lying (QC): 6 Lying-Sitting on Side/Bed(QC): 6 Sit to Stand (QC): 6 Chair/Wma-aj-Detin Xfer(QC): 6 Walk 150 ft (QC): 6 PT Plan Problem List Problem List: Activity Tolerance, Functional Strength, Safety Treatment/Plan Treatment Plan: Continue Plan of Care Treatment Plan: Bed Mobility, Education, Functional Activity [place], Functional Strength, Gait, Safety, Therapeutic Exercise, Transfers Treatment Duration: Sep 25, 2020 Frequency: 5 times per week Estimated Hrs Per Day: .25 hour per day Safety Risks/Education Patient Education: Transfer Techniques, Safety Issues Teaching Recipient: Patient Teaching Methods: Discussion Response to Teaching: Reinforcement Needed Time/GCodes Time In: 808 Time Out: 820 Total Billed Treatment Time: 12 Total Billed Treatment visit EVM 12 BLAISE CONTRERAS PT Sep 19, 2020 09:31
[2020-09-19] MEDS ORDERED: inSUlin (REGULAR) HUMAN 1 UNIT/0.01 ML (CHARGE PER UNIT) SC ONE (10:15)
[2020-09-19 11:13] VITALS: BP 161/96
--- NOTE | 2020-09-19 11:16 | NUR ---
CONTINUE TO MONITOR BLOOD SUGARS EVERY HOUR, IF BLOOD SUGAR GREATER THEN 250, INFUSING NS AT 250 IF BS IS LESS THAN 250 INFUSING D51/2 NS, POTASSIUM INFUSING AT 5MEQ HOUR, CONTINUE TO MONITOR BMP AND REPORT RESULTS TO DR LYNN, PATIENT ALERT AND ORIENTED, DENIES PAIN OR SOB, DOES C/O HEARTBURN AND NAUSEA, SEE LABS FOR RESULTS OF BS AND BMP.
[2020-09-19] MEDS: METOCLOPRAMIDE INJ 10 MG/2 ML (REGLAN) IVP SCH ×3 (12:59→20:42)
[2020-09-19 13:05] LABS: BUN/CREATININE RATIO 11; CALCIUM 8.1 MG/DL (8.5-10.1); CARBON DIOXIDE 22 MMOL/L (21-32); CHLORIDE 106 MMOL/L (98-107); CREATININE SERUM 0.76 MG/DL (0.60-1.30); GFR ESTIMATED > 60; GLUCOSE 160 MG/DL (70-105); SODIUM 137 MMOL/L (135-145)
--- NOTE | 2020-09-19 14:03 | Progress Note - Hospitalist ---
Subjective HPI/CC On Admission Date Seen by Provider: Sep 19, 2020 Time Seen by Provider: 13:00 30-year-old white male with labile type 1 diabetes presents with 24-hour history of nausea and vomiting and hyperglycemia. Serum bicarb is low however pH is normal electrolytes are within normal limits. His blood pressure was initially low but he is received I think 4 L of normal saline and his blood pressure is becoming more stable. He is admitted to the floor because of the normal pH on his ABG he does have 3+ ketones Subjective/Events-last exam Patient continues to have nausea and vomiting and abdominal discomfort consistent with this DKA. His bicarb is up to 22 now with his electrolytes being in good control once he starts eating we will begin decreasing the frequency of blood sugars and Chem-7's. Review of Systems Gastrointestinal: Nausea, Vomiting, Abdominal Pain Neurological: Weakness Focused Exam Lactate Level 09/18/20 14:29: Lactic Acid Level 3.30*H 09/18/20 16:25: Lactic Acid Level 2.08*H 09/18/20 18:12: Lactic Acid Level 0.57 Objective Exam Vital Signs Vital Signs Date Time Temp Pulse Resp B/P (MAP) Pulse Ox O2 Delivery O2 Flow Rate FiO2 09/19/20 12:33 104 09/19/20 11:13 20 161/96 (117) 97 Room Air 09/19/20 04:03 37.3 Capillary Refill : Less Than 3 Seconds General Appearance: Chronically ill Cardiovascular: Tachycardia (Proved at about 100) Gastrointestinal: Normal Bowel Sounds Results/Procedures Lab Laboratory Tests 09/18/20 17:15 09/18/20 18:12 09/18/20 19:05 09/18/20 20:19 09/18/20 23:27 09/19/20 04:01 09/19/20 07:50 09/19/20 12:25 Patient resulted labs reviewed. Assessment/Plan Assessment and Plan Assess & Plan/Chief Complaint Diabetic ketoacidosis resolving Nausea we will add Reglan Type 1 diabetes labile Hypotension resolving Clinical Quality Measures DVT/VTE Risk/Contraindication: Risk Factor Score Per Nursin RFS Level Per Nursing on Admit: 1=Low/No VTE PPX ERICK LYNN MD Sep 19, 2020 14:03
[2020-09-19 16:00] VITALS: BP 165/102
[2020-09-19 16:29] LABS: BUN/CREATININE RATIO 8; CALCIUM 8.2 MG/DL (8.5-10.1); CARBON DIOXIDE 22 MMOL/L (21-32); CHLORIDE 105 MMOL/L (98-107); CREATININE SERUM 0.76 MG/DL (0.60-1.30); GFR ESTIMATED > 60; GLUCOSE 211 MG/DL (70-105); POTASSIUM 3.7 MMOL/L (3.6-5.0); SODIUM 137 MMOL/L (135-145)
[2020-09-19] MEDS ORDERED: inSUlin (REGULAR) HUMAN 1 UNIT/0.01 ML (CHARGE PER UNIT) ONE (17:46)
[2020-09-19] MEDS: inSUlin (REGULAR) HUMAN 1 UNIT/0.01 ML (CHARGE PER UNIT) SC SCH (18:02)
[2020-09-19 19:52] VITALS: BP 151/97
[2020-09-19 23:50] VITALS: BP 155/96
[2020-09-20 00:02] LABS: CHLORIDE 104 MMOL/L (98-107); POTASSIUM 3.5 MMOL/L (3.6-5.0); SODIUM 136 MMOL/L (135-145)
[2020-09-20 00:03] LABS: CALCIUM 7.7 MG/DL (8.5-10.1)
[2020-09-20 00:04] LABS: GLUCOSE 183 MG/DL (70-105)
[2020-09-20 00:05] LABS: CARBON DIOXIDE 22 MMOL/L (21-32)
[2020-09-20 00:08] LABS: BUN/CREATININE RATIO 6; CREATININE SERUM 0.72 MG/DL (0.60-1.30); GFR ESTIMATED > 60
[2020-09-20] MEDS: NS IV 1000 ML 1,000 ML IV SCH ×3 (00:11→06:01)
[2020-09-20] MEDS: POTASSIUM CL 10MEQ/50ML IVPB 50 ML IV SCH ×4 (01:15→09:50)
[2020-09-20] MEDS: ONDANSETRON 4 MG/2 ML (SDV) Z0FRAN IV PRN ×3 (02:17→13:18)
[2020-09-20] MEDS: D5 1/2 NS 1000 ML IV SOLUTION 1,000 ML IV SCH (02:39)
[2020-09-20 03:54] VITALS: BP 144/90
[2020-09-20] MEDS: METOCLOPRAMIDE INJ 10 MG/2 ML (REGLAN) IVP SCH (05:14)
[2020-09-20 06:28] LABS: BASOPHILS % (AUTO) 0 % (0-10); EOSINOPHILS % (AUTO) 0 % (0-10); HEMATOCRIT 36 % (40-54); HEMOGLOBIN 12.2 g/dL (13.3-17.7); LYMPHOCYTES # (AUTO) 1.5 10^3/uL (1.0-4.0); LYMPHOCYTES % (AUTO) 10 % (12-44); MEAN CORPUSCULAR HEMOGLOBIN 28 pg (25-34); MEAN CORPUSCULAR HGB CONC 34 g/dL (32-36); MEAN CORPUSCULAR VOLUME 82 fL (80-99); MEAN PLATELET VOLUME 9.2 fL (9.0-12.2); MONOCYTES # (AUTO) 0.8 10^3/uL (0.0-1.0); MONOCYTES % (AUTO) 6 % (0-12); NEUTROPHILS # (AUTO) 12.3 10^3/uL (1.8-7.8); NEUTROPHILS % (AUTO) 84 % (42-75); PLATELET COUNT 215 10^3/uL (130-400); WHITE BLOOD COUNT 14.7 10^3/uL (4.3-11.0)
[2020-09-20 06:32] LABS: ALBUMIN 3.1 GM/DL (3.2-4.5); CHLORIDE 103 MMOL/L (98-107); POTASSIUM 3.8 MMOL/L (3.6-5.0); SODIUM 136 MMOL/L (135-145)
[2020-09-20 06:33] LABS: CALCIUM 8.1 MG/DL (8.5-10.1)
[2020-09-20 06:34] LABS: GLUCOSE 114 MG/DL (70-105); TOTAL PROTEIN 5.1 GM/DL (6.4-8.2)
[2020-09-20 06:35] LABS: CARBON DIOXIDE 25 MMOL/L (21-32)
[2020-09-20 06:38] LABS: ALKALINE PHOSPHATASE 78 U/L (40-136); CREATININE SERUM 0.64 MG/DL (0.60-1.30); GFR ESTIMATED > 60
[2020-09-20 06:39] LABS: BUN/CREATININE RATIO 6
[2020-09-20 06:41] LABS: ALANINE AMINOTRANSFERASE 13 U/L (0-55)
--- NOTE | 2020-09-20 07:23 | NUR ---
CALLED DR LYNN WITH BMP RESULTS. ORDERS TO CHANGE DIET TO 1800 ADA, WAIT UNTIL PT EATS AND RECHECK BS BEFORE GIVEN AM INSULIN, DECREASE FLUIDS TO 125 ML/HR. NURSE INFORMED ABOUT DR CHAMBERS
[2020-09-20 08:00] VITALS: BP 159/95
[2020-09-20] MEDS: FAMOTIDINE 20MG/2ML IV (PEPCID) IV SCH (08:15)
[2020-09-20] MEDS: inSUlin (REGULAR) HUMAN 1 UNIT/0.01 ML (CHARGE PER UNIT) SC SCH ×4 (09:49→16:34)
--- NOTE | 2020-09-20 11:43 | NUR ---
ORDER GIVEN TO DC IV FLUIDS AND POTASSIUM INFUSION, TELEMETRY DC, SHOWER TAKERN, HONORIO WELL, CALL LIGHT WITHIN REACH, DENIES PAIN OR NAUSEA AT THIS TIME, PO FLUIDS ENCOURAGED.
[2020-09-20 12:00] VITALS: BP 144/92
[2020-09-20] MEDS ORDERED: METO5SOL18 PO (12:17)
--- NOTE | 2020-09-20 12:30 | NUR ---
PATIENT TOOK ONE BITE LUNCH AND C/O NAUSEA, NO EMESIS,DR LYNN NOTIFIED THAT HE DID NOT EAT, LUNCH DOSE INSULIN HELD, WILL CONTINUE TO MONITOR BLOOD SUGARS
[2020-09-20] MEDS: METOCLOPRAMIDE 10MG/10ML ORAL SOL(REGLAN) UDC PO SCH ×3 (12:59→20:55)
[2020-09-20 15:55] VITALS: BP 160/92
[2020-09-20 19:46] VITALS: BP 138/61
--- NOTE | 2020-09-20 21:06 | Progress Note - Hospitalist ---
Subjective HPI/CC On Admission Date Seen by Provider: Sep 20, 2020 Time Seen by Provider: 11:30 30-year-old white male with labile type 1 diabetes presents with 24-hour history of nausea and vomiting and hyperglycemia. Serum bicarb is low however pH is normal electrolytes are within normal limits. His blood pressure was initially low but he is received I think 4 L of normal saline and his blood pressure is becoming more stable. He is admitted to the floor because of the normal pH on his ABG he does have 3+ ketones Subjective/Events-last exam pt still with nausea,labs looking good. Not eating well yet but may by this afternoon. Has been on Reglan before. Review of Systems Gastrointestinal: Nausea, Vomiting Focused Exam Lactate Level 09/18/20 14:29: Lactic Acid Level 3.30*H 09/18/20 16:25: Lactic Acid Level 2.08*H 09/18/20 18:12: Lactic Acid Level 0.57 Objective Exam Vital Signs Vital Signs Date Time Temp Pulse Resp B/P (MAP) Pulse Ox O2 Delivery O2 Flow Rate FiO2 09/20/20 20:10 Room Air 09/20/20 19:46 37.2 108 18 138/61 (86) 99 Capillary Refill : Less Than 3 Seconds General Appearance: Chronically ill Neck: Supple Respiratory: Lungs Clear, Normal Breath Sounds, No Accessory Muscle Use, No Respiratory Distress Cardiovascular: Regular Rate, Rhythm, No Gallop, No Murmur Gastrointestinal: Normal Bowel Sounds, Soft Extremity: Normal Capillary Refill Neurologic/Psychiatric: Alert, Oriented x3 Skin: Normal Color, Warm/Dry Results/Procedures Lab Laboratory Tests 09/19/20 23:47 09/20/20 06:13 Patient resulted labs reviewed. Assessment/Plan Assessment and Plan Assess & Plan/Chief Complaint Diabetic ketoacidosis resolved Nausea we will add Reglan Type 1 diabetes labile Hypotension resolved plan to d/c today if eating and drinking well Clinical Quality Measures DVT/VTE Risk/Contraindication: Risk Factor Score Per Nursin RFS Level Per Nursing on Admit: 1=Low/No VTE PPX ERICK LYNN MD Sep 20, 2020 21:06
[2020-09-20 23:56] VITALS: BP 135/90
[2020-09-21 04:25] VITALS: BP 152/62
[2020-09-21] MEDS: METOCLOPRAMIDE 10MG/10ML ORAL SOL(REGLAN) UDC PO SCH ×4 (06:04→20:42)
--- NOTE | 2020-09-21 06:50 | NUR ---
BS 52 THIS AM. AFTER ORANGE JUICE OFFERED BS SUGAR 71. DR PERALTA NOTIFIED INFORMED TO WAIT UNTIL PT EATS THIS AM BEFORE GIVEN SCHEDULED INSULIN
[2020-09-21] MEDS: inSUlin (REGULAR) HUMAN 1 UNIT/0.01 ML (CHARGE PER UNIT) SC SCH ×4 (07:29→17:16)
[2020-09-21] MEDS: PANTOPRAZOLE 40 MG (PROTONIX) TAB PO SCH (07:52)
[2020-09-21 08:00] VITALS: BP 132/92
[2020-09-21] MEDS ORDERED: PANTOPRAZOLE 40 MG (PROTONIX) VIAL IV NR (08:00)
--- NOTE | 2020-09-21 10:13 | Physical Therapy Progress Note ---
Therapy Progress Note Patient is up independently and ad taina in room. PT to dismiss patient from services at this time. ROSA QUEVEDO PT Sep 21, 2020 10:13
[2020-09-21] MEDS: ONDANSETRON 4 MG/2 ML (SDV) Z0FRAN IV PRN (10:51)
--- NOTE | 2020-09-21 13:13 | Progress Note ---
SAMANTA ANDRADE MED STUDENT 09/21/20 1313: Subjective Subjective/Events-last exam PMH: Mr Maurice Nelson is a 30 y/o M with labile type 1 diabetes presents with 24-hour history of nausea and vomiting and hyperglycemia. Serum bicarb is low however pH is normal electrolytes are within normal limits. His blood pressure was initially low but he is received I think 4 L of normal saline and his blood pressure is becoming more stable. He is admitted to the floor because of the normal pH on his ABG he does have 3+ ketones Update: He still reports nausea and states that he had diarrhea when he drank his shake. He has not returned to a normal diet and is concerned that he may continue to vomit. He is not currently on any IV fluids. Review of Systems General: Fatigue; No Appetite Pulmonary: No Dyspnea Gastrointestinal: Nausea, Diarrhea Focused Exam Lactate Level 09/18/20 14:29: Lactic Acid Level 3.30*H 09/18/20 16:25: Lactic Acid Level 2.08*H 09/18/20 18:12: Lactic Acid Level 0.57 Respiratory: Chest Non Tender, Lungs Clear, Normal Breath Sounds, No Accessory Muscle Use, No Respiratory Distress Cardiovascular: Regular Rate, Rhythm, No Edema, No Gallop, No Murmur Skin: normal color, warm/dry Objective Exam Last Set of Vital Signs Vital Signs Date Time Temp Pulse Resp B/P (MAP) Pulse Ox O2 Delivery O2 Flow Rate FiO2 09/21/20 08:00 Room Air 09/21/20 08:00 37.1 103 16 132/92 (105) 98 Capillary Refill : Less Than 3 Seconds I&O Intake and Output 09/21/20 00:00 Intake Total 3820 ml Output Total 6550 ml Balance -2730 ml Intake Oral 2270 ml IV Total 1550 ml Output Urine Total 6550 ml # Bowel Movements 1 General: Alert, Oriented X3, Cooperative, No Acute Distress HEENT: Atraumatic, EOMI Lungs: Clear to Auscultation, Normal Air Movement Heart: No Murmurs, Gallops, Rubs, Other (tachycardic ) Abdomen: Normal Bowel Sounds, Soft, No Tenderness Extremities: No Clubbing, No Cyanosis, No Edema Skin: No Rashes Results/Procedures Lab Laboratory Tests 09/20/20 15:04: Glucometer 204H 09/20/20 15:33: Glucometer 244H 09/20/20 20:19: Glucometer 173H 09/21/20 05:38: Glucometer 52*L 09/21/20 05:52: Beta-Hydroxybutyrate (Chem panel) 0.88H 09/21/20 06:03: Glucometer 64L 09/21/20 06:26: Glucometer 71 09/21/20 11:35: Microbiology 09/18/20 Influenza Types A,B Antigen (KAMILLA) - Final, Complete 09/18/20 Blood Culture - Preliminary, Resulted No growth Assessment/Plan Assessment/Plan Admission Dx Nausea, vomiting, and DKA Assessment & Plan Mr Maurice Nelson is a 30 y/o M with insulin dependent type 1 diabetes who presented on 09/18 for nausea and vomiting and hyperglycemia. # Nausea and Vomiting - continue metoclopramide and odansaetron HCL for nausea # GERD - start famotidine - continue pantoprazole sodium # Diabetic ketoacidosis - Type 1 diabetes labile on insulin - resolved # Hypotension - likely secondary to volume depletion from vomiting - resolved plan to d/c today if eating and drinking well (1) Nausea & vomiting Status: Acute Qualifiers: Qualified Codes: R11.2 - Nausea with vomiting, unspecified (2) Type 1 diabetes (3) IDDM (insulin dependent diabetes mellitus) Status: Chronic Clinical Quality Measures DVT/VTE Risk/Contraindication: Risk Factor Score Per Nursin RFS Level Per Nursing on Admit: 1=Low/No VTE PPX DEANNE BLANCO MD 09/21/20 1406: Supervisory-Addendum Brief Verification & Attestation Participated in pt care: history, MDM, physical Personally performed: exam, history, MDM Care discussed with: Medical Student Procedures: n/a Personally saw and examined patient today, I did the history and physical exam as documented by medical student and directed the plan of care. SAMANTA ANDRADE MED STUDENT Sep 21, 2020 13:13 DEANNE BLANCO MD Sep 21, 2020 14:06
[2020-09-21] MEDS ORDERED: FAMOTIDINE 20 MG (PEPCID) TABLET PO PRN (13:15)
--- NOTE | 2020-09-21 14:41 | NUR ---
RD ASSESSMENT PMHx: DM (hx of DKA); cardiomyopathy; PT INTERACTION: Pt was awake and pleasant during nutrition assessment. Pt states current appetite is poor, and has been this way for the past few days. Note avg PO intake 33% x1d, per chart review. Pt states following a diabetic diet at home, and has some swallowing issues which he attributes to acid reflux. Pt states some recent issues with nausea, vomiting, and diarrhea. Note last BM was 09/20, and pt not currently on bowel regimen per chart review. Pt states no recent wt changes. Note recent 12# wt gain x3mon, per chart review. Pt states current DM management is "okay." Note pt has hx of DKA, and note recent Hba1c of 9.8 (06/16/2020), per chart review. ABNORMAL NUTRITION-RELATED LAB VALUES LOW: BUN 4; Ca 8.1; Pro 5.1; alb 3.1; HIGH: Est. kcal needs: 9202-5656 kcal | 30-35 kcal/kg Est. Pro needs: 56-68 g Pro | 1.0-1.2 g Pro/kg PES STATEMENT: Inadequate oral intake (NI-2.1) related to loss of appetite, nausea, vomiting, and diarrhea, as evidenced by pt interview, and avg PO intake 33% x1d. INTERVENTION: Continue with current diet order of CHO 60g/m 1snack diet. Add Glucerna (vary) to meals TID, for increased kcal intake. Provides 220 kcal and 10 g Pro per serving. Offered diet education on DM management to reinforce previous diet education, but pt declined at this time. Will attempt to offer again prior to discharge. Encouraged pt to eat when able. Will continue to follow and reassess as pt needs, intake, and status change. Noehlia Allen, MS RD LD [phone] cell
[2020-09-21 15:50] VITALS: BP 140/82
[2020-09-21] MEDS ORDERED: CALCIUM CARBONATE 500 MG (TUMS) TAB.CHEW PO ONE (17:30)
[2020-09-21 19:34] VITALS: BP 121/75
--- NOTE | 2020-09-21 21:27 | NUR ---
2055-bs 131-pt only agreed to taking 4 units of levemir instead of 10 units prescribed. 2128-dr. gomez notified. no new orders.
[2020-09-21 23:57] VITALS: BP 127/84
[2020-09-22 04:09] VITALS: BP 132/86
[2020-09-22 06:10] LABS: BASOPHILS % (AUTO) 0 % (0-10); EOSINOPHILS # (AUTO) 0.1 10^3/uL (0.0-0.3); EOSINOPHILS % (AUTO) 1 % (0-10); HEMATOCRIT 37 % (40-54); HEMOGLOBIN 12.4 g/dL (13.3-17.7); LYMPHOCYTES # (AUTO) 1.3 10^3/uL (1.0-4.0); LYMPHOCYTES % (AUTO) 12 % (12-44); MEAN CORPUSCULAR HEMOGLOBIN 28 pg (25-34); MEAN CORPUSCULAR HGB CONC 34 g/dL (32-36); MEAN CORPUSCULAR VOLUME 82 fL (80-99); MEAN PLATELET VOLUME 9.7 fL (9.0-12.2); MONOCYTES # (AUTO) 0.7 10^3/uL (0.0-1.0); MONOCYTES % (AUTO) 7 % (0-12); NEUTROPHILS # (AUTO) 8.3 10^3/uL (1.8-7.8); NEUTROPHILS % (AUTO) 80 % (42-75); PLATELET COUNT 228 10^3/uL (130-400); WHITE BLOOD COUNT 10.3 10^3/uL (4.3-11.0)
[2020-09-22 06:32] LABS: CHLORIDE 99 MMOL/L (98-107); POTASSIUM 3.9 MMOL/L (3.6-5.0); SODIUM 136 MMOL/L (135-145)
[2020-09-22 06:34] LABS: GLUCOSE 84 MG/DL (70-105)
[2020-09-22 06:35] LABS: CARBON DIOXIDE 25 MMOL/L (21-32)
[2020-09-22 06:38] LABS: GFR ESTIMATED > 60
[2020-09-22 06:39] LABS: BUN/CREATININE RATIO 15
[2020-09-22] MEDS: METOCLOPRAMIDE 10MG/10ML ORAL SOL(REGLAN) UDC PO SCH ×2 (06:53→12:06)
[2020-09-22 08:00] VITALS: BP 131/86
[2020-09-22] MEDS: PANTOPRAZOLE 40 MG (PROTONIX) TAB PO SCH (08:03)
[2020-09-22] MEDS: inSUlin (REGULAR) HUMAN 1 UNIT/0.01 ML (CHARGE PER UNIT) SC SCH ×2 (08:03→12:06)
[2020-09-22] MEDS ORDERED: PANT40TA52 PO (08:50)
--- NOTE | 2020-09-22 08:52 | Discharge Summary ---
Discharge [facility] Discharge Medications New, Converted or Re-Newed RX: Transmitted to Pharmacy New Medications: Metoclopramide HCl (Metoclopramide HCl) 10 Mg/10 Ml Solution 10 MG PO ACHS for 30 Days, #120 EA 1 Refill Pantoprazole Sodium (Pantoprazole Sodium) 40 Mg Tablet.dr 40 MG PO DAILY, #30 TAB 0 Refills Continued Medications: Insulin Aspart (Novolog) 100 Unit/1 Ml Susp 10-12 UNIT SQ TIDAC, EACH USES 2 UNITS PER EVERY CARB Insulin Determir (Levemir) 1,000 Units/10 Ml Soln 10 UNITS SQ HS, EA LAST FILLED 11-21-2019 #2 VIALS / 100 DAY SUPPLY Lisinopril (Lisinopril) 10 Mg Tablet 10 MG PO DAILY, #30 TAB Ondansetron HCl (Zofran) 8 Mg Tablet 8 MG PO q6hr, #30 TAB Patient Instructions Goal/Follow Up Appt: Follow up on 09/28 at 0900 with Roni Leiva APRN Return to The Hospital For: Inability to keep down liquids, blood sugars persistently above 300. Activity & Diet Discharge Diet: ADA Diet Activity as Tolerated: Yes Copy Copies To 1: AMPARO Warner BETHANY N MD Sep 22, 2020 08:52
--- NOTE | 2020-09-22 09:31 | NUR ---
CM/SS: Visited with pt as per his plan for discharge and need related to the being able to afford diabetic supplies Plan: Pt will discharge to home with no identified services - encouraged to follow up with [facility] and be compliant with his appointments and his blood sugar. Summary: Pt reports he hopes he can go home today. Pt reports he is able to afford his diabetic supplies, he was just having some issues with his stomach, nausea and keeping things down. Pt reports he is able to afford his diabetic supplies and he goes to [facility]. He reports seeing someone already there. Pt is encouraged to follow up and keep his appointments once discharged. Pt verbalizes understanding. Pt reports having a ride when he is discharged from the hospital. Pt reports he has no other questions and is wished well.
--- NOTE | 2020-09-22 11:54 | Discharge Summary ---
SAMANTA ANDRADE MED STUDENT 09/22/20 1137: Discharge Summary Hospital Course Problems Reviewed?: Yes Problems/Diagnosis: (1) Diabetic ketoacidosis Status: Acute Qualifiers: (2) Nausea & vomiting Status: Acute Qualifiers: Qualified Codes: R11.2 - Nausea with vomiting, unspecified (3) Type 1 diabetes Status: Chronic (4) IDDM (insulin dependent diabetes mellitus) Status: Chronic Hospital Course Date of Admission: Sep 18, 2020 at 14:42 Admission Diagnosis : Family Physician/Provider: Reji Leiva Date of Discharge: 09/22/20 Discharge Diagnosis: [ DKA ] Hospital Course: [ PMH: Mr Maurice Nelson is a 30 y/o M with labile type 1 diabetes who presented on with nausea, vomiting, and hyperglycemia in DKA. Serum bicarb was low, but pH and electrolytes were within normal limits on presentation. His blood pressure was initially low but resuscitated with IV fluids. He was admitted had 3+ ketones on admission. Patient's Nausea, vomiting, and diarrhea where slow to decrease and patient was sent home on new medications for nausea and GERD.] Labs and Pending Lab Test: Laboratory Tests 09/21/20 15:49: Glucometer 176H 09/21/20 20:39: Glucometer 131H 09/22/20 05:14: Sodium Level 136, Potassium Level 3.9, Chloride Level 99, Carbon Dioxide Level 25, Anion Gap 12, Blood Urea Nitrogen 9, Creatinine 0.60, Estimat Glomerular Filtration Rate > 60, BUN/Creatinine Ratio 15, Glucose Level 84, Calcium Level 8.0L, Beta-Hydroxybutyrate (Chem panel) 0.58H 09/22/20 05:44: White Blood Count 10.3, Red Blood Count 4.48, Hemoglobin 12.4L, Hematocrit 37L, Mean Corpuscular Volume 82, Mean Corpuscular Hemoglobin 28, Mean Corpuscular Hemoglobin Concent 34, Red Cell Distribution Width 11.9, Platelet Count 228, Mean Platelet Volume 9.7, Immature Granulocyte % (Auto) 0, Neutrophils (%) (Auto) 80H, Lymphocytes (%) (Auto) 12, Monocytes (%) (Auto) 7, Eosinophils (%) (Auto) 1, Basophils (%) (Auto) 0, Neutrophils # (Auto) 8.3H, Lymphocytes # (Auto) 1.3, Monocytes # (Auto) 0.7, Eosinophils # (Auto) 0.1, Basophils # (Auto) 0.0, Immature Granulocyte # (Auto) 0.0 09/22/20 11:25: Glucometer 129H Microbiology 09/18/20 Influenza Types A,B Antigen (KAMILLA) - Final, Complete 09/18/20 Blood Culture - Preliminary, Resulted No growth Home Meds Active Pantoprazole Sodium 40 Mg Tablet.dr 40 Mg PO DAILY Metoclopramide HCl 10 Mg/10 Ml Solution 10 Mg PO ACHS 30 Days Zofran (Ondansetron HCl) 8 Mg Tablet 8 Mg PO Q6HR Lisinopril 10 Mg Tablet 10 Mg PO DAILY Reported Novolog (Insulin Aspart) 100 Unit/1 Ml Susp 10-12 Unit SQ TIDAC USES 2 UNITS PER EVERY CARB Levemir (Insulin Determir) 1,000 Units/10 Ml Soln 10 Units SQ HS LAST FILLED 11-21-2019 #2 VIALS / 100 DAY SUPPLY Discharge Diet: Eat Small Frequent Meals Activity as Tolerated: Yes Orders-Post D/C & Referrals Nausea and Vomiting -Discharge on metoclopramide 10 mg -Eat small frequent meals GERD - Discharge on pantoprazole Type 1 diabetes labile on insulin -Discharge on CORDWAINER insuline regiment because patient was well controlled in hospital on this regiment. DKA at presentation likely due to underlying illness. plan to d/c today if eating and drinking well - Follow up on 09/28 at 0900 with Roni Leiva APRN Return to The Hospital For -Inability to keep down liquids, blood sugars persistently above 300. Discharge Physical Examination Allergies: Coded Allergies: Penicillins (Verified Allergy, Unknown, 05/23/06) General Appearance: No Apparent Distress, Thin HEENT: PERRL/EOMI Respiratory: Chest Non Tender, Lungs Clear, Normal Breath Sounds, No Accessory Muscle Use, No Respiratory Distress Cardiovascular: No Edema, No Gallop, No JVD, No Murmur, Normal Peripheral Puls es, Tachycardia Gastrointestinal: Normal Bowel Sounds, No Organomegaly, No Pulsatile Mass, Non Tender, Soft Extremity: Non Tender, No Calf Tenderness, No Pedal Edema Skin: Normal Color, Warm/Dry Neurologic/Psychiatric: Alert Discharge Summary Date of Admission Sep 18, 2020 at 14:42 Date of Discharge Discharge Date: Sep 20, 2020 Discharge Time: 1600 Admission Diagnosis Diabetic ketoacidosis Brittle type 1 diabetes Clinical Quality Measures DVT/VTE Risk/Contraindication: Risk Factor Score Per Nursin RFS Level Per Nursing on Admit: 1=Low/No VTE PPX DEANNE BLANCO MD 09/22/20 1224: Discharge Summary Hospital Course Assessment/Pt DC Instructions Follow up with Roni Leiva at [facility]. Discharge Physical Examination Allergies: Coded Allergies: Penicillins (Verified Allergy, Unknown, 05/23/06) Supervisory-Addendum Brief Verification & Attestation Participated in pt care: history, MDM, physical Personally performed: exam, history, MDM Care discussed with: Medical Student Procedures: n/a I personally saw and examined this patient today and agree with documentation as noted by medical student. SAMANTA ANDRADE MED STUDENT Sep 22, 2020 11:37 DEANNE BLANCO MD Sep 22, 2020 12:24
[2020-09-22 12:00] VITALS: BP 121/79
[2020-09-22 15:50] VITALS: BP 126/75
[2020-09-22 18:02] VITALS: BP 126/75
== END 2020-09-22 16:30 | disposition home or self-care (01) | DRG 638 ==
LOC: EDUNIT# 08:33 → ER 08:35 → 4TH 14:42
PROVIDERS: ADMIT Internal Medicine; ATTEND Family Medicine
DX: E10.10 Type 1 diabetes mellitus with ketoacidosis without coma (principal); I42.9 Cardiomyopathy, unspecified; I95.9 Hypotension, unspecified; F12.90 Cannabis use, unspecified, uncomplicated; K21.9 Gastro-esophageal reflux disease without esophagitis; E86.9 Volume depletion, unspecified; Z20.828 Contact with and (suspected) exposure to other viral communicable diseases; Z79.4 Long term (current) use of insulin; Z87.891 Personal history of nicotine dependence; Z87.01 Personal history of pneumonia (recurrent)
CPT/HCPCS: 36415; 71045; 80048; 80053; 80306; 80320; 81000; 82010; 82805; 82962; 83605; 83615; 83690; 83735; 83874; 84145; 85007; 85025; 85027; 85610; 85730; 86141; 87040; 87635; 87804; 93005; 93041; 96361; 96372; 96374; 96375; 96376

== ENCOUNTER 2021-01-09 00:59 | Inpatient (IN) | payer SELFPAY ==
[~2021-01-09] VITALS: Ht 180.3 cm; Wt 50.8 kg
[~2021-01-09 00:59] MED LIST changes: -LISI-556 PO; +LISI-729 PO; -LISI10TA2 PO; +LISI10TA25 PO; +METO5SOL18 PO; +PANT40TA52 PO
[2021-01-09] MEDS ORDERED: PROMETHAZINE INJ 25 MG/ML (PHENERGAN) AMP IVP ONE (01:30)
[2021-01-09 01:33] LABS: BILIRUBIN,URINE NEGATIVE (NEGATIVE); CLARITY,URINE CLEAR; COLOR,URINE YELLOW; GLUCOSE, URINE (UA) 2+ (NEGATIVE); KETONES,URINE 3+ (NEGATIVE); LEUKOCYTE ESTERASE ,URINE NEGATIVE (NEGATIVE); NITRITE,URINE NEGATIVE (NEGATIVE); PROTEIN,URINE TRACE (NEGATIVE)
[2021-01-09] MEDS: NS IV 1000 ML 1,000 ML IV SCH ×2 (01:40→02:09)
[2021-01-09 01:42] LABS: BASOPHILS % (AUTO) 0 % (0-10); EOSINOPHILS % (AUTO) 0 % (0-10); HEMATOCRIT 40 % (40-54); HEMOGLOBIN 13.3 g/dL (13.3-17.7); LYMPHOCYTES # (AUTO) 2.8 10^3/uL (1.0-4.0); LYMPHOCYTES % (AUTO) 14 % (12-44); MEAN CORPUSCULAR HEMOGLOBIN 29 pg (25-34); MEAN CORPUSCULAR HGB CONC 33 g/dL (32-36); MEAN CORPUSCULAR VOLUME 85 fL (80-99); MEAN PLATELET VOLUME 9.6 fL (9.0-12.2); MONOCYTES # (AUTO) 0.4 10^3/uL (0.0-1.0); MONOCYTES % (AUTO) 2 % (0-12); NEUTROPHILS # (AUTO) 16.8 10^3/uL (1.8-7.8); NEUTROPHILS % (AUTO) 84 % (42-75); PLATELET COUNT 338 10^3/uL (130-400); WHITE BLOOD COUNT 20.1 10^3/uL (4.3-11.0)
[2021-01-09] MEDS ORDERED: PANTOPRAZOLE 40 MG (PROTONIX) VIAL IV ONE (01:45)
[2021-01-09 01:46] LABS: BACTERIA,URINE NEGATIVE /HPF; CALCIUM OXALATE CRYSTALS,UR FEW /LPF; SQUAMOUS EPITHELIAL CELL,UR 0-2 /HPF
[2021-01-09 01:46] LABS: ALBUMIN 4.3 GM/DL (3.2-4.5); CHLORIDE 96 MMOL/L (98-107); POTASSIUM 4.3 MMOL/L (3.6-5.0); SODIUM 135 MMOL/L (135-145)
[2021-01-09 01:47] LABS: CALCIUM 9.8 MG/DL (8.5-10.1)
[2021-01-09 01:49] LABS: TOTAL PROTEIN 7.5 GM/DL (6.4-8.2)
[2021-01-09 01:50] LABS: BILIRUBIN,TOTAL 0.8 MG/DL (0.1-1.0); CARBON DIOXIDE 12 MMOL/L (21-32)
[2021-01-09 01:52] LABS: ALKALINE PHOSPHATASE 117 U/L (40-136); CREATININE SERUM 0.95 MG/DL (0.60-1.30); GFR ESTIMATED > 60; GLUCOSE 507 MG/DL (70-105)
[2021-01-09 01:52] LABS: ABG BASE EXCESS -9.9 MMOL/L (-2.5-2.5); ABG OXYGEN SATURATION 98 % (94-100); ABG PCO2 25 MMHG (35-45); ABG PH 7.37 (7.37-7.43); ABG PO2 113 MMHG (79-93)
[2021-01-09 01:53] LABS: ALLENS TEST NEGATIVE; INSPIRED O2 RA; PATIENT TEMP 37; VENTILATOR NO
[2021-01-09 01:54] LABS: BUN/CREATININE RATIO 17
[2021-01-09 01:55] LABS: ALANINE AMINOTRANSFERASE 30 U/L (0-55)
[2021-01-09 01:56] LABS: LIPASE 22 U/L (8-78)
[2021-01-09 02:11] LABS: ANISOCYTOSIS SLIGHT; ATYPICAL LYMPHOCYTES 2 %; BLAST CELLS 1 %; LYMPHOCYTES % (MANUAL) 15 %; MONOCYTES % (MANUAL) 3 %; NEUTROPHILS % (MANUAL) 77 %; REACTIVE LYMPHOCYTES 2 %
--- NOTE | 2021-01-09 02:39 | ED General ---
General Chief Complaint: Glucose Problems Stated Complaint: TYPE I DIABETIC,POSS IN DKA Nursing Triage Note: TO ED VIA POV AND AMBULATORY TO ROOM 6 WITH C/O NOT FEELING WELL SINCE APPROX 1700 TONIGHT. PT IS TYPE 1 DIABETIC AND STATES HE FEELS LIKE HE DOES WHEN HE IS IN DKA. STATES LAST TOOK BLOOD SUGAR AT NOON AND IT WAS 200 MG/DL. HE TAKES NOVOLOG AND LEVEMIR AND TOOK 10 UNITS NOVOLOG THIS AFTERNOON. PT IS VOMITING DURING TRIAGE. STATES HE HAD 1ST COVID VACCINE 01/05/21. Nursing Sepsis Screen: No Definite Risk History of Present Illness Date Seen by Provider: Jan 09, 2021 Time Seen by Provider: 01:28 Initial Comments Patient is a 30-year-old male who presents to the emergency department today with a chief complaint of "I think I am in DKA". Patient states that he started becoming nauseated this afternoon he noticed that his lunchtime blood sugar was quite high at 200. Patient states that he took an extra 10 units of NovoLog insulin but then throughout the rest of the day started feeling worse. He became nauseous diaphoretic and shivering. Patient states that he got his first Covid vaccination this past Monday, 4 days ago. He is not had any sick contacts. Prior to the onset of symptoms today he has had no fevers, chills, nausea vomiting, diarrhea or urinary complaints. Patient states that he has had basically too numerous to count episodes of DKA the last of which was in September 2020. Patient presents severely nauseated and retching coffee-ground appearing emesis. He states that he takes Protonix daily. He has a history of gastroparesis. All other review of systems reviewed and negative except as stated. Timing/Duration: 12 Hours Severity: Severe Associated Systoms: Loss of Appetite, Malaise, Nausea/Vomiting Allergies and Home Medications Allergies Coded Allergies: Penicillins (Verified Allergy, Unknown, 05/23/06) Home Medications Insulin Aspart 100 Unit/1 Ml Susp, 10-12 UNIT SQ TIDAC, (Reported) USES 2 UNITS PER EVERY CARB Insulin Determir 1,000 Units/10 Ml Soln, 10 UNITS SQ HS, (Reported) LAST FILLED 11-21-2019 #2 VIALS / 100 DAY SUPPLY Lisinopril 10 Mg Tablet, 10 MG PO DAILY Prescribed by: SHAMIKA FERMIN on 06/18/20 1053 Metoclopramide HCl 10 Mg/10 Ml Solution, 10 MG PO ACHS Prescribed by: ERICK LYNN on 09/20/20 1217 Ondansetron HCl 8 Mg Tablet, 8 MG PO q6hr Prescribed by: SHAMIKA FERMIN on 06/18/20 1053 Pantoprazole Sodium 40 Mg Tablet.dr, 40 MG PO DAILY Prescribed by: DEANNE BLANCO on 09/22/20 0850 Patient Home Medication List Home Medication List Reviewed: Yes Review of Systems Review of Systems Constitutional: see HPI EENTM: no symptoms reported Respiratory: no symptoms reported Cardiovascular: palpitations Gastrointestinal: abdominal pain, loss of appetite, nausea, vomiting Genitourinary: no symptoms reported Musculoskeletal: no symptoms reported Skin: no symptoms reported All Other Systems Reviewed Negative Unless Noted: Yes Past Dhpicqu-Kkuybv-Fbllrs Hx Patient Social History Alcohol Use: Denies Use Drug of Choice: HX MARIJUANA Smoking Status: Former Smoker Type Used: Cigarettes Former Smoker, Quit: Sep 28, 2012 2nd Hand Smoke Exposure: No Recent Infectious Disease Expo: No Recent Hopitalizations: No Immunizations Up To Date Tetanus Booster (TDap): Unknown PED Vaccines UTD: No Date of Pneumonia Vaccine: Jul 16, 2016 Date of Influenza Vaccine: Jul 16, 2020 Seasonal Allergies Seasonal Allergies: No Past Medical History Surgeries: No Respiratory: Yes Pneumonia Currently Using CPAP: No Currently Using BIPAP: No Cardiac: Yes (CARDIOMYOPATHY DX 2016) Cardiomyopathy Neurological: No Reproductive Disorders: No Sexually Transmitted Disease: No HIV/AIDS: No Genitourinary: No Gastrointestinal: Yes (GASTROPARESIS) Musculoskeletal: No Endocrine: Yes (DX AGE 11, [place] 2001; MULTIPLE ADMITS FOR DKA) Diabetes, Insulin dep Cancer: No Did You Recieve Any Treatments: No Psychosocial: No Integumentary: Yes (WOUNDS TO LOWER LEGS-- REQUIRED WOUND CARE CLINIC TREATMENT) Blood Disorders: No Adverse Reaction/Blood Tranf: No Family Medical History Cardiovascular disease 19 FATHER Hypertension 19 FATHER Heart Disease, Cancer, Hypertension Physical Exam Vital Signs Vital Signs - First Documented 01/09/21 01:13 Temp 37.0 Pulse 157 Resp 20 B/P (MAP) 136/67 (90) O2 Delivery Room Air Capillary Refill : Less Than 3 Seconds Height, Weight, BMI Height: 5'11.00" Weight: 126lbs. 0.0oz. 57.607893ut; 18.00 BMI Method:Stated General Appearance: Chronically ill, Moderate Distress Eyes: Bilateral Eye Normal Inspection Neck: Normal Inspection Respiratory: Lungs Clear, Normal Breath Sounds, No Accessory Muscle Use, No Respiratory Distress Cardiovascular: Regular Rate, Rhythm, No Murmur, Tachycardia Gastrointestinal: Normal Bowel Sounds, Soft, Tenderness (Diffuse mild tenderness) Extremity: Normal Inspection, Normal Range of Motion Neurologic/Psychiatric: Alert, Oriented x3, No Motor/Sensory Deficits, Normal Mood/Affect Skin: Diaphoresis, Pallor Progress/Results/Core Measures Suspected Sepsis Recent Fever Within 48 Hours: No Infection Criteria Present: Suspected New Infection New/Unexplained Altered Menta: No Sepsis Screen: No Definite Risk SIRS Temperature: Pulse: 157 Respiratory Rate: 20 Laboratory Tests 01/09/21 01:20: White Blood Count 20.1H Blood Pressure 136 /67 Mean: 90 Laboratory Tests 01/09/21 01:20: Creatinine 0.95, Platelet Count 338, Total Bilirubin 0.8 Results/Orders Lab Results Laboratory Tests Test 01/09/21 01:15 01/09/21 01:20 01/09/21 01:25 01/09/21 01:45 Range/Units Urine Color YELLOW Urine Clarity CLEAR Urine pH 7.0 5-9 Urine Specific [place] 1.020 1.016-1.022 Urine Protein TRACE H NEGATIVE Urine Glucose (UA) 2+ H NEGATIVE Urine Ketones 3+ H NEGATIVE Urine Nitrite NEGATIVE NEGATIVE Urine Bilirubin NEGATIVE NEGATIVE Urine Urobilinogen 0.2 < = 1.0 MG/DL Urine Leukocyte Esterase NEGATIVE NEGATIVE Urine RBC (Auto) 2+ H NEGATIVE Urine RBC 10-25 H /HPF Urine WBC 5-10 H /HPF Urine Squamous Epithelial Cells 0-2 /HPF Urine Crystals PRESENT H /LPF Urine Calcium Oxalate Crystals FEW H /LPF Urine Bacteria NEGATIVE /HPF Urine Casts NONE /LPF Urine Mucus NEGATIVE /LPF Urine Culture Indicated NO White Blood Count 20.1 H 4.3-11.0 10^3/uL Red Blood Count 4.67 4.30-5.52 10^6/uL Hemoglobin 13.3 13.3-17.7 g/dL Hematocrit 40 40-54 % Mean Corpuscular Volume 85 80-99 fL Mean Corpuscular Hemoglobin 29 25-34 pg Mean Corpuscular Hemoglobin Concent 33 32-36 g/dL Red Cell Distribution Width 12.8 10.0-14.5 % Platelet Count 338 130-400 10^3/uL Mean Platelet Volume 9.6 9.0-12.2 fL Immature Granulocyte % (Auto) 1 % Neutrophils (%) (Auto) 84 H 42-75 % Lymphocytes (%) (Auto) 14 12-44 % Monocytes (%) (Auto) 2 0-12 % Eosinophils (%) (Auto) 0 0-10 % Basophils (%) (Auto) 0 0-10 % Neutrophils # (Auto) 16.8 H 1.8-7.8 10^3/uL Lymphocytes # (Auto) 2.8 1.0-4.0 10^3/uL Monocytes # (Auto) 0.4 0.0-1.0 10^3/uL Eosinophils # (Auto) 0.0 0.0-0.3 10^3/uL Basophils # (Auto) 0.0 0.0-0.1 10^3/uL Immature Granulocyte # (Auto) 0.1 0.0-0.1 10^3/uL Neutrophils % (Manual) 77 % Lymphocytes % (Manual) 15 % Monocytes % (Manual) 3 % Atypical Lymphocytes 2 % Reactive Lymphocytes 2 % Blast Cells 1 % Anisocytosis SLIGHT Sodium Level 135 135-145 MMOL/L Potassium Level 4.3 3.6-5.0 MMOL/L Chloride Level 96 L 98-107 MMOL/L Carbon Dioxide Level 12 L 21-32 MMOL/L Anion Gap 27 H 5-14 MMOL/L Blood Urea Nitrogen 16 7-18 MG/DL Creatinine 0.95 0.60-1.30 MG/DL Estimat Glomerular Filtration Rate > 60 BUN/Creatinine Ratio 17 Glucose Level 507 *H 70-105 MG/DL Calcium Level 9.8 8.5-10.1 MG/DL Corrected Calcium 9.6 8.5-10.1 MG/DL Total Bilirubin 0.8 0.1-1.0 MG/DL Aspartate Amino Transf (AST/SGOT) 20 5-34 U/L Alanine Aminotransferase (ALT/SGPT) 30 0-55 U/L Alkaline Phosphatase 117 40-136 U/L Total Protein 7.5 6.4-8.2 GM/DL Albumin 4.3 3.2-4.5 GM/DL Lipase 22 8-78 U/L Beta-Hydroxybutyrate (Chem panel) > 4.50 H 0.00-0.27 MMOL/L Glucometer 494 *H 70-110 MG/DL Blood Gas Puncture Site RIGHT RADIAL Blood Gas Patient Temperature 37 Arterial Blood pH 7.37 7.37-7.43 Arterial Blood Partial Pressure CO2 25 L 35-45 MMHG Arterial Blood Partial Pressure O2 113 H 79-93 MMHG Arterial Blood HCO3 14 *L 23-27 MMOL/L Arterial Blood Total CO2 15.0 L 21.0-31.0 MMOL/L Arterial Blood Oxygen Saturation 98 94-100 % Arterial Blood Base Excess -9.9 L -2.5-2.5 MMOL/L Bony Test NEGATIVE Blood Gas Ventilator Setting NO Blood Gas Inspired Oxygen RA Test 01/09/21 02:32 Range/Units Glucometer 515 *H 70-110 MG/DL My Orders Orders - RAMÓN WEISS MD Promethazine Injection (Phenergan Injec (01/09/21 01:30) Ns Iv 1000 Ml (Sodium Chloride 0.9%) (01/09/21 01:30) Accucheck Stat ONCE (01/09/21 01:27) Cbc With Automated Diff (01/09/21 01:27) Comprehensive Metabolic Panel (01/09/21 01:27) Ua Culture If Indicated (01/09/21 01:27) Chest 1 View, Ap/Pa Only (01/09/21 01:27) Beta Hydroxybutyrate (01/09/21 01:20) Lipase (01/09/21 01:20) Pantoprazole Injection (Protonix Injecti (01/09/21 01:45) Manual Differential (01/09/21 01:20) Arterial Blood Gas (01/09/21 01:47) Insulin Regular Drip (Myxredlin 100 Unit (01/09/21 02:30) Accucheck Stat ONCE (01/09/21 02:31) Medications Given in ED Current Medications Medications Dose Ordered Sig/Luis Route Start Time Stop Time Status Last Admin Dose Admin Pantoprazole 40 mg ONCE ONCE IV 01/09/21 01:45 01/09/21 01:46 DC 01/09/21 02:11 40 MG Promethazine HCl 25 mg ONCE ONCE IVP 01/09/21 01:30 01/09/21 01:31 DC 01/09/21 01:40 25 MG Vital Signs/I&O 01/09/21 01:13 Temp 37.0 Pulse 157 Resp 20 B/P (MAP) 136/67 (90) O2 Delivery Room Air Capillary Refill : Less Than 3 Seconds Blood Pressure Mean: 90 Point of Care Testing Finger Stick Blood Glucose: 494 Blood Glucose Action Taken: DR. WEISS NOTIFIED. Progress Note : Time: 02:30 Progress Note After 2 L of normal saline fluid bolus and 25 mg of Phenergan the patient is feeling somewhat better. Blood sugar remains high. Discussed with Dr. Knight as well as eICU. Insulin drip at 5 units an hour will be started with normal saline at 150 cc an hour. Patient will get every 4 hour BMPs. He is admitted to the ICU at this time. Diagnostic Imaging Diagonstic Imaging: Xray Plain Films/CT/US/NM/MRI: chest Comments Chest x-ray shows normal bony structures, normal mediastinum, no evidence for infiltrate or effusion. Reviewed: Reviewed by Me Critical Care Note Critical Care Start Time: 01:28 Stop Time: 02:28 Total Time (minutes) 40 minutes critical care time evaluation and management of this patient with DKA. Time includes evaluation and management of laboratory studies, fluid resuscitation, management of insulin drip discussion with admitting physician and eICU. Departure Communication (Admissions) Time/Spoke to Admitting Phy: 02:[address] Knight who accepts the patient for admission Impression Primary Impression: Diabetic ketoacidosis Qualified Codes: E10.10 - Type 1 diabetes mellitus with ketoacidosis without coma Disposition: ADMITTED INPATIENT Condition: Critical Admissions Decision to Admit Reason: Admit from ER (General) Decision to Admit/Date: Jan 09, 2021 Time/Decision to Admit Time: 02:35 Departure-Patient Inst. Referrals: HILARIO FISHMAN DO (PCP) Primary Care Physician EMIL TORRES (Family) Primary Care Physician RAMÓN WEISS MD Jan 09, 2021 02:38
[2021-01-09] MEDS ORDERED: NS IV 1000 ML 1,000 ML IV SCH ×2 (02:45→03:45)
[2021-01-09] MEDS ORDERED: ONDANSETRON 4 MG/2 ML (SDV) Z0FRAN ONE (03:14)
[2021-01-09] MEDS ORDERED: ONDANSETRON 4 MG/2 ML (SDV) Z0FRAN IVP ONE (03:30)
[2021-01-09] MEDS ORDERED: POTASSIUM CL 10MEQ/50ML IVPB 50 ML IV SCH ×2 (03:45→06:00)
[2021-01-09] MEDS: POTASSIUM CL 10MEQ/50ML IVPB 50 ML IV SCH ×6 (04:14→14:49)
[2021-01-09] MEDS: 1/2 NS IV SOLUTION 1,000 ML IV SCH ×3 (04:14→09:33)
[2021-01-09 04:26] VITALS: BP 167/101
[2021-01-09 04:43] LABS: CHLORIDE 107 MMOL/L (98-107); POTASSIUM 4.2 MMOL/L (3.6-5.0); SODIUM 139 MMOL/L (135-145)
[2021-01-09 04:44] LABS: CALCIUM 8.6 MG/DL (8.5-10.1); GLUCOSE 339 MG/DL (70-105)
[2021-01-09] MEDS ORDERED: RT-ALBUTEROL SULF 2.5 MG/3 ML PRE-MIX VIAL INH PRN (04:45)
[2021-01-09 04:46] LABS: CARBON DIOXIDE 12 MMOL/L (21-32)
[2021-01-09 04:48] LABS: CREATININE SERUM 0.84 MG/DL (0.60-1.30); GFR ESTIMATED > 60
[2021-01-09 04:49] LABS: BUN/CREATININE RATIO 21
[2021-01-09] MEDS ORDERED: MAGNESIUM 1 GM/100 ML IVPB 100 ML IV SCH (06:00)
[2021-01-09] MEDS ORDERED: KCL 20 MEQ TAB (K-DUR) PO SCH (06:00)
[2021-01-09] MEDS: D5 1/2 NS 1000 ML IV SOLUTION 1,000 ML IV SCH ×2 (06:30→11:44)
[2021-01-09] MEDS: PROMETHAZINE INJ 25 MG/ML (PHENERGAN) AMP IVP PRN ×2 (06:54→11:48)
[2021-01-09 07:29] LABS: BUN/CREATININE RATIO 19; CALCIUM 8.7 MG/DL (8.5-10.1); CARBON DIOXIDE 13 MMOL/L (21-32); CHLORIDE 107 MMOL/L (98-107); CREATININE SERUM 0.81 MG/DL (0.60-1.30); GFR ESTIMATED > 60; GLUCOSE 213 MG/DL (70-105); POTASSIUM 4.5 MMOL/L (3.6-5.0); SODIUM 139 MMOL/L (135-145)
[2021-01-09] MEDS ORDERED: ACETAMINOPHEN 325 MG TABLET PO PRN (07:45)
--- NOTE | 2021-01-09 08:01 | History & Physical-Hospitalist ---
History of Present Illness HPI/Chief Complaint CC: DKA HPI: This is a 30yoWM w/h/o Type 1 DM who presented to the ER with N/V and elevated glucose of 500+. Patient is currently improved and bicarb after insulin drip and IVF has returned to normal. Source: patient Exam Limitations: no limitations Date Seen 01/09/21 Time Seen by a Provider: 11:00 Attending Physician Lore Knight DO PCP Kamala Alonzo DO Referring Physician Date of Admission Jan 09, 2021 at 02:34 Home Medications & Allergies Home Medications Reviewed patient Home Medication Reconciliation performed by pharmacy medication reconciliations utility locate technician and/or nursing. Patients Allergies have been reviewed. Allergies Allergies Coded Allergies Penicillins (Verified Allergy, Unknown, 05/23/06) Past Xbzqtvz-Nqjfqy-Zbkhla Hx Past Med/Social Hx: Reviewed Nursing Past Med/Soc Hx, Reviewed and Corrections made Patient Social History Marrital Status: single Employed/Student: unemployed Alcohol Use: Denies Use Drug of Choice: HX MARIJUANA Smoking Status: Former Smoker Former Smoker, Quit: Sep 28, 2012 Type Used: Cigarettes 2nd Hand Smoke Exposure: No Recent Foreign Travel: No Contact w/other who traveled: No Recent Hopitalizations: No Recent Infectious Disease Expo: No Immunizations Up To Date Tetanus Booster (TDap): Unknown Pediatric: No Date of Pneumonia Vaccine: Jul 16, 2016 Date of Influenza Vaccine: Aug 11, 2020 Seasonal Allergies Seasonal Allergies: No Past Medical History Currently Using CPAP: No Currently Using BIPAP: No Cardiac: Cardiomyopathy Reproductive: No Sexually Transmitted Disease: No HIV/AIDS: No Endocrine: Diabetes, Insulin dep Did You Recieve Any Treatments: No History of Blood Disorders: No Adverse Reaction to Blood Ryan: No Family History Cardiovascular disease 19 FATHER Hypertension 19 FATHER Heart Disease, Cancer, Hypertension Review of Systems Constitutional: see HPI, malaise, weakness Gastrointestinal: nausea, vomiting Physical Exam Physical Exam Vital Signs Vital Signs - First Documented 01/09/21 01/09/21 01/09/21 01:13 03:25 04:26 Temp 37.0 Pulse 157 Resp 20 B/P (MAP) 136/67 (90) Pulse Ox 99 O2 Delivery Room Air FiO2 21 Capillary Refill : Less Than 3 Seconds Height, Weight, BMI Height: 5'11.00" Weight: 126lbs. 0.0oz. 57.290001lv; 16.30 BMI Method:Stated General Appearance: No Apparent Distress, Chronically ill, Thin Eyes: Right Eye Normal Inspection, Right Eye PERRL HEENT: PERRL/EOMI, Normal ENT Inspection, Pharynx Normal, Moist Mucous Membranes Neck: Full Range of Motion, Normal Inspection, Non Tender Respiratory: Chest Non Tender, Lungs Clear, Normal Breath Sounds, No Accessory Muscle Use, No Respiratory Distress Cardiovascular: Regular Rate, Rhythm, No Edema, No Gallop, No JVD, No Murmur, Normal Peripheral Pulses Gastrointestinal: Normal Bowel Sounds, No Organomegaly, No Pulsatile Mass, Non Tender, Soft Back: Normal Inspection, No CVA Tenderness, No Vertebral Tenderness Extremity: Normal Capillary Refill, Normal Inspection, Normal Range of Motion, Non Tender, No Calf Tenderness, No Pedal Edema Neurologic/Psychiatric: Alert, Oriented x3, No Motor/Sensory Deficits, Normal Mood/Affect Skin: Normal Color, Warm/Dry Lymphatic: No Adenopathy Results Results/Procedures Labs Laboratory Tests 01/09/21 01:20 01/09/21 04:20 01/09/21 06:47 01/09/21 10:43 01/09/21 14:34 Patient resulted labs reviewed. Assessment/Plan Admission Diagnosis Assessment: DKA N/V Dehydration Plan: IVF Insulin drip Transition to SQ insulin Admission Status: Inpatient Order (span 2 midnights) Reason for Inpatient Admission: DKA Diagnosis/Problems Diagnosis/Problems (1) Diabetic ketoacidosis Status: Acute Qualifiers: Diabetes mellitus type: type 1 Diabetes mellitus complication detail: without coma Qualified Codes: E10.10 - Type 1 diabetes mellitus with ketoacidosis without coma LORE KNIGHT DO Jan 09, 2021 08:01
--- NOTE | 2021-01-09 08:13 | Diagnostic Imaging Report ---
INDICATION: Diabetic ketoacidosis with nausea and vomiting. COMPARISON STUDY: Chest from September 18. FINDINGS: Frontal view of the chest demonstrates lungs to be clear. Heart, mediastinum, pulmonary vascularity and visualized bony thorax are normal. IMPRESSION: Normal chest. Dictated by: Dictated on workstation # [id number]
[2021-01-09] MEDS ORDERED: PANTOPRAZOLE 40 MG (PROTONIX) VIAL IV SCH (09:00)
[2021-01-09 11:19] LABS: BUN/CREATININE RATIO 15; CALCIUM 8.4 MG/DL (8.5-10.1); CARBON DIOXIDE 19 MMOL/L (21-32); CHLORIDE 109 MMOL/L (98-107); CREATININE SERUM 0.74 MG/DL (0.60-1.30); GFR ESTIMATED > 60; GLUCOSE 178 MG/DL (70-105); POTASSIUM 4.1 MMOL/L (3.6-5.0); SODIUM 138 MMOL/L (135-145)
[2021-01-09 14:50] LABS: CHLORIDE 108 MMOL/L (98-107); POTASSIUM 3.9 MMOL/L (3.6-5.0); SODIUM 137 MMOL/L (135-145)
[2021-01-09 14:51] LABS: CALCIUM 8.1 MG/DL (8.5-10.1)
[2021-01-09 14:52] LABS: GLUCOSE 194 MG/DL (70-105)
[2021-01-09 14:53] LABS: CARBON DIOXIDE 21 MMOL/L (21-32)
[2021-01-09 14:56] LABS: GFR ESTIMATED > 60
[2021-01-09 14:57] LABS: BUN/CREATININE RATIO 11
[2021-01-09] MEDS ORDERED: ALPRAZolam 0.25 MG (XANAX) TAB PO PRN (15:15)
[2021-01-09] MEDS ORDERED: MELATONIN 3 MG TABLET PO PRN (15:15)
[2021-01-09] MEDS ORDERED: LOPERAMIDE 2 MG (IMODIUM) TABLET PO PRN (15:15)
[2021-01-09] MEDS ORDERED: diphenhydrAMINE 25 MG TAB (BENADRYL) PO PRN (15:15)
[2021-01-09] MEDS ORDERED: DOCUSATE SODIUM 100 MG (COLACE) CAP PO PRN (15:15)
[2021-01-09] MEDS ORDERED: HYDROcodone/APAP 5 MG/325 MG (LORTAB) TAB PO PRN (15:15)
[2021-01-09] MEDS: inSUlin ASPART (NovoLOG) 1 UNIT/0.01 ML (CHARGE PER UNIT) SC SCH ×2 (17:12→20:52)
[2021-01-09] MEDS: ENOXAPARIN 30 MG/0.3 ML (LOVENOX) SYR SC SCH (18:30)
[2021-01-09] MEDS: ONDANSETRON 4 MG/2 ML (SDV) Z0FRAN IVP PRN (18:46)
[2021-01-09] MEDS: SENNA W/DOCUSATE (SENOKOT S) TABLET PO SCH (20:56)
[2021-01-10] MEDS: ONDANSETRON 4 MG/2 ML (SDV) Z0FRAN IVP PRN ×5 (03:21→20:07)
[2021-01-10] MEDS: CALCIUM CARBONATE 500 MG (TUMS) TAB.CHEW PO PRN (04:44)
[2021-01-10 05:13] LABS: BASOPHILS % (AUTO) 0 % (0-10); EOSINOPHILS % (AUTO) 0 % (0-10); HEMATOCRIT 36 % (40-54); HEMOGLOBIN 11.7 g/dL (13.3-17.7); LYMPHOCYTES # (AUTO) 1.5 10^3/uL (1.0-4.0); LYMPHOCYTES % (AUTO) 11 % (12-44); MEAN CORPUSCULAR HEMOGLOBIN 28 pg (25-34); MEAN CORPUSCULAR HGB CONC 33 g/dL (32-36); MEAN CORPUSCULAR VOLUME 86 fL (80-99); MEAN PLATELET VOLUME 9.1 fL (9.0-12.2); MONOCYTES # (AUTO) 0.7 10^3/uL (0.0-1.0); MONOCYTES % (AUTO) 5 % (0-12); NEUTROPHILS % (AUTO) 83 % (42-75); PLATELET COUNT 214 10^3/uL (130-400); WHITE BLOOD COUNT 14.3 10^3/uL (4.3-11.0)
[2021-01-10 05:22] LABS: ALBUMIN 3.6 GM/DL (3.2-4.5); CHLORIDE 103 MMOL/L (98-107); POTASSIUM 3.7 MMOL/L (3.6-5.0); SODIUM 136 MMOL/L (135-145)
[2021-01-10 05:23] LABS: CALCIUM 8.8 MG/DL (8.5-10.1)
[2021-01-10 05:24] LABS: GLUCOSE 231 MG/DL (70-105); TOTAL PROTEIN 6.1 GM/DL (6.4-8.2)
[2021-01-10 05:26] LABS: BILIRUBIN,TOTAL 0.7 MG/DL (0.1-1.0); CARBON DIOXIDE 21 MMOL/L (21-32)
[2021-01-10 05:28] LABS: ALKALINE PHOSPHATASE 91 U/L (40-136); CREATININE SERUM 0.72 MG/DL (0.60-1.30); GFR ESTIMATED > 60
[2021-01-10 05:29] LABS: BUN/CREATININE RATIO 10
[2021-01-10 05:31] LABS: ALANINE AMINOTRANSFERASE 22 U/L (0-55)
[2021-01-10] MEDS: inSUlin ASPART (NovoLOG) 1 UNIT/0.01 ML (CHARGE PER UNIT) SC SCH ×4 (06:32→20:32)
--- NOTE | 2021-01-10 07:14 | Progress Note - Hospitalist ---
Subjective HPI/CC On Admission Date Seen by Provider: Jan 10, 2021 Time Seen by Provider: 12:30 CC: DKA HPI: This is a 30yoWM w/h/o Type 1 DM who presented to the ER with N/V and elevated glucose of 500+. Patient is currently improved and bicarb after insulin drip and IVF has returned to normal. Subjective/Events-last exam Patient feels like he is going into DKA again Labs reviewed and bicarb good Nausea persists so will add meds for that IVF restarted Review of Systems General: Fatigue, Malaise Gastrointestinal: Nausea, Vomiting Objective Exam Vital Signs Vital Signs Date Time Temp Pulse Resp B/P (MAP) Pulse Ox O2 Delivery O2 Flow Rate FiO2 01/10/21 19:23 37.3 144 18 110/53 (72) 100 Room Air 01/09/21 04:26 21 Capillary Refill : Less Than 3 Seconds General Appearance: No Apparent Distress, WD/WN, Anxious, Chronically ill, Thin Respiratory: Lungs Clear Cardiovascular: Regular Rate, Rhythm Neurologic/Psychiatric: Alert, Oriented x3, No Motor/Sensory Deficits, Normal Mood/Affect Results/Procedures Lab Laboratory Tests 01/10/21 05:00 01/10/21 13:26 Patient resulted labs reviewed. Assessment/Plan Assessment and Plan Assess & Plan/Chief Complaint Assessment: s/p DKA Continued N/V Plan: Insulin IVF nausea treatment Diagnosis/Problems Diagnosis/Problems (1) Diabetic ketoacidosis Status: Acute Qualifiers: Diabetes mellitus type: type 1 Diabetes mellitus complication detail: without coma Qualified Codes: E10.10 - Type 1 diabetes mellitus with ket oacidosis without coma NORAH JOSÉ DO Jan 10, 2021 07:14
[2021-01-10] MEDS: SENNA W/DOCUSATE (SENOKOT S) TABLET PO SCH ×2 (08:46→21:48)
[2021-01-10] MEDS: PANTOPRAZOLE 40 MG (PROTONIX) TAB PO SCH (08:46)
[2021-01-10] MEDS ORDERED: SCOPOLAMINE 1.5 MG (TRANSDERM-SCOP) PATCH TD ONE (13:00)
[2021-01-10] MEDS: METOCLOPRAMIDE INJ 10 MG/2 ML (REGLAN) IVP SCH ×3 (13:32→23:56)
[2021-01-10] MEDS: NS IV 1000 ML 1,000 ML IV SCH ×2 (13:33→23:56)
[2021-01-10 13:52] LABS: BUN/CREATININE RATIO 13; CALCIUM 9.2 MG/DL (8.5-10.1); CARBON DIOXIDE 22 MMOL/L (21-32); CHLORIDE 100 MMOL/L (98-107); CREATININE SERUM 0.78 MG/DL (0.60-1.30); GFR ESTIMATED > 60; GLUCOSE 172 MG/DL (70-105); POTASSIUM 3.8 MMOL/L (3.6-5.0); SODIUM 138 MMOL/L (135-145)
[2021-01-10] MEDS: ENOXAPARIN 30 MG/0.3 ML (LOVENOX) SYR SC SCH (15:18)
[2021-01-11] MEDS: ONDANSETRON 4 MG/2 ML (SDV) Z0FRAN IVP PRN ×3 (02:31→17:39)
[2021-01-11] MEDS: CALCIUM CARBONATE 500 MG (TUMS) TAB.CHEW PO PRN (03:07)
[2021-01-11] MEDS: PROMETHAZINE INJ 25 MG/ML (PHENERGAN) AMP IM PRN ×2 (03:08→14:19)
[2021-01-11 05:06] LABS: BASOPHILS % (AUTO) 0 % (0-10); EOSINOPHILS % (AUTO) 0 % (0-10); HEMATOCRIT 33 % (40-54); HEMOGLOBIN 11.1 g/dL (13.3-17.7); LYMPHOCYTES # (AUTO) 1.7 10^3/uL (1.0-4.0); LYMPHOCYTES % (AUTO) 14 % (12-44); MEAN CORPUSCULAR HEMOGLOBIN 29 pg (25-34); MEAN CORPUSCULAR HGB CONC 34 g/dL (32-36); MEAN CORPUSCULAR VOLUME 85 fL (80-99); MONOCYTES # (AUTO) 0.7 10^3/uL (0.0-1.0); MONOCYTES % (AUTO) 6 % (0-12); NEUTROPHILS # (AUTO) 10.1 10^3/uL (1.8-7.8); NEUTROPHILS % (AUTO) 80 % (42-75); PLATELET COUNT 217 10^3/uL (130-400); WHITE BLOOD COUNT 12.6 10^3/uL (4.3-11.0)
[2021-01-11 05:15] LABS: ALBUMIN 3.4 GM/DL (3.2-4.5); CHLORIDE 102 MMOL/L (98-107); POTASSIUM 3.7 MMOL/L (3.6-5.0); SODIUM 134 MMOL/L (135-145)
[2021-01-11 05:16] LABS: CALCIUM 8.3 MG/DL (8.5-10.1)
[2021-01-11 05:18] LABS: CARBON DIOXIDE 14 MMOL/L (21-32); GLUCOSE 110 MG/DL (70-105); TOTAL PROTEIN 5.9 GM/DL (6.4-8.2)
[2021-01-11 05:19] LABS: BILIRUBIN,TOTAL 0.7 MG/DL (0.1-1.0)
[2021-01-11 05:21] LABS: ALKALINE PHOSPHATASE 90 U/L (40-136); CREATININE SERUM 0.78 MG/DL (0.60-1.30); GFR ESTIMATED > 60
[2021-01-11 05:22] LABS: BUN/CREATININE RATIO 13
[2021-01-11 05:24] LABS: ALANINE AMINOTRANSFERASE 18 U/L (0-55)
[2021-01-11] MEDS: inSUlin ASPART (NovoLOG) 1 UNIT/0.01 ML (CHARGE PER UNIT) SC SCH (05:33)
[2021-01-11] MEDS: METOCLOPRAMIDE INJ 10 MG/2 ML (REGLAN) IVP SCH ×4 (05:49→23:36)
[2021-01-11] MEDS: PANTOPRAZOLE 40 MG (PROTONIX) TAB PO SCH (08:22)
[2021-01-11] MEDS: SENNA W/DOCUSATE (SENOKOT S) TABLET PO SCH ×2 (08:22→20:57)
[2021-01-11] MEDS: NS IV 1000 ML 1,000 ML IV SCH (08:23)
[2021-01-11] MEDS ORDERED: MTC10T PO (09:52)
[2021-01-11] MEDS ORDERED: PANT40TA52 PO (09:52)
--- NOTE | 2021-01-11 10:31 | Progress Note ---
Subjective Subjective/Events-last exam Pt appears in mild to moderate distress, has deep, rapid respirations. He states he just took a shower and has some palpitations. He did not eat anything this morning and does not feel well. Objective Exam Last Set of Vital Signs Vital Signs Date Time Temp Pulse Resp B/P (MAP) Pulse Ox O2 Delivery O2 Flow Rate FiO2 01/11/21 09:00 Room Air 01/11/21 08:00 37.3 128 20 162/82 (108) 99 01/09/21 04:26 21 Capillary Refill : Less Than 3 Seconds I&O Intake and Output 01/10/21 23:59 Intake Total 3370 ml Output Total 2 ml Balance 3368 ml Intake Oral 3370 ml Output Urine Total 2 ml # Voids 3 # Bowel Movements 1 # Emeses 3 General: Alert, Mild Distress Lungs: Clear to Auscultation, Other (tachypneic, increased work of breathing) Heart: Other (tachycardic) Extremities: No Edema Psych/Mental Status: Mental Status NL Results/Procedures Lab Laboratory Tests 01/10/21 11:03: Glucometer 269H 01/10/21 12:21: Glucometer 255H 01/10/21 13:26: Sodium Level 138, Potassium Level 3.8, Chloride Level 100, Carbon Dioxide Level 22, Anion Gap 16H, Blood Urea Nitrogen 10, Creatinine 0.78, Estimat Glomerular Filtration Rate > 60, BUN/Creatinine Ratio 13, Glucose Level 172H, Calcium Level 9.2 01/10/21 14:57: Glucometer 247H 01/10/21 18:09: Glucometer 228H 01/10/21 20:02: Glucometer 412*H 01/10/21 21:29: Glucometer 318H 01/10/21 23:48: Glucometer 147H 01/11/21 04:50: White Blood Count 12.6H, Red Blood Count 3.88L, Hemoglobin 11.1L, Hematocrit 33L , Mean Corpuscular Volume 85, Mean Corpuscular Hemoglobin 29, Mean Corpuscular Hemoglobin Concent 34, Red Cell Distribution Width 13.2, Platelet Count 217, Mean Platelet Volume 9.0, Immature Granulocyte % (Auto) 0, Neutrophils (%) (Auto) 80H, Lymphocytes (%) (Auto) 14, Monocytes (%) (Auto) 6, Eosinophils (%) (Auto) 0, Basophils (%) (Auto) 0, Neutrophils # (Auto) 10.1H, Lymphocytes # (Auto) 1.7, Monocytes # (Auto) 0.7, Eosinophils # (Auto) 0.0, Basophils # (Auto) 0.0, Immature Granulocyte # (Auto) 0.1, Sodium Level 134L, Potassium Level 3.7, Chloride Level 102, Carbon Dioxide Level 14L, Anion Gap 18H, Blood Urea Nitrogen 10, Creatinine 0.78, Estimat Glomerular Filtration Rate > 60, BUN/Creatinine Ratio 13, Glucose Level 110H, Calcium Level 8.3L, Corrected Calcium 8.8, Total Bilirubin 0.7, Aspartate Amino Transf (AST/SGOT) 14, Alanine Aminotransferase (ALT/SGPT) 18, Alkaline Phosphatase 90, Total Protein 5.9L, Albumin 3.4 01/11/21 09:57: Assessment/Plan Assessment/Plan (1) Diabetic ketoacidosis Status: Acute Assessment & Plan: Was doing better and resolved, however this am (01/11) had low CO2 in spite of normal glucose and is clinically doing worse. Will return to ICU and resume insulin drip and DKA protocol. Qualifiers: Qualified Codes: E10.10 - Type 1 diabetes mellitus with ketoacidosis without coma (2) IDDM (insulin dependent diabetes mellitus) Status: Chronic (3) DVT prophylaxis Status: Acute Assessment & Plan: Enoxaparin DEANNE BLANCO MD Jan 11, 2021 10:31
[2021-01-11 10:35] LABS: BUN/CREATININE RATIO 11; CALCIUM 9.1 MG/DL (8.5-10.1); CHLORIDE 98 MMOL/L (98-107); CREATININE SERUM 1.14 MG/DL (0.60-1.30); GFR ESTIMATED > 60; GLUCOSE 372 MG/DL (70-105); POTASSIUM 4.4 MMOL/L (3.6-5.0); SODIUM 133 MMOL/L (135-145)
[2021-01-11 10:38] LABS: CARBON DIOXIDE 9 MMOL/L (21-32)
[2021-01-11] MEDS ORDERED: NS IV 1000 ML 1,000 ML IV SCH (10:45)
[2021-01-11] MEDS ORDERED: ACET325T38 PO (11:12)
[2021-01-11] MEDS: 1/2 NS IV SOLUTION 1,000 ML IV SCH ×3 (11:15→21:04)
[2021-01-11] MEDS: POTASSIUM CL 10MEQ/50ML IVPB 50 ML IV SCH ×8 (11:16→23:37)
[2021-01-11 11:26] LABS: BUN/CREATININE RATIO 11; CALCIUM 8.8 MG/DL (8.5-10.1); CHLORIDE 97 MMOL/L (98-107); CREATININE SERUM 1.22 MG/DL (0.60-1.30); GFR ESTIMATED > 60; POTASSIUM 5.2 MMOL/L (3.6-5.0); SODIUM 132 MMOL/L (135-145)
[2021-01-11 11:29] LABS: CARBON DIOXIDE 5 MMOL/L (21-32); GLUCOSE 445 MG/DL (70-105)
[2021-01-11 12:44] LABS: ABG BASE EXCESS -22.5 MMOL/L (-2.5-2.5); ABG OXYGEN SATURATION 99 % (94-100); ABG PO2 128 MMHG (79-93); ABG TCO2 4.7 MMOL/L (21.0-31.0)
[2021-01-11 12:47] LABS: ABG PH 7.23 (7.37-7.43)
[2021-01-11 12:48] LABS: ABG PCO2 11 MMHG (35-45); ALLENS TEST POS
[2021-01-11 12:49] LABS: PATIENT TEMP 37; VENTILATOR NO
[2021-01-11 13:09] LABS: CHLORIDE 102 MMOL/L (98-107); POTASSIUM 4.3 MMOL/L (3.6-5.0); SODIUM 132 MMOL/L (135-145)
[2021-01-11 13:10] LABS: CALCIUM 8.2 MG/DL (8.5-10.1); GLUCOSE 283 MG/DL (70-105)
[2021-01-11 13:14] LABS: CREATININE SERUM 1.06 MG/DL (0.60-1.30); GFR ESTIMATED > 60
[2021-01-11 13:15] LABS: BUN/CREATININE RATIO 14
[2021-01-11] MEDS: D5 1/2 NS 1000 ML IV SOLUTION 1,000 ML IV SCH ×3 (13:35→23:39)
[2021-01-11 13:48] LABS: CARBON DIOXIDE 6 MMOL/L (21-32)
[2021-01-11 16:21] LABS: CHLORIDE 103 MMOL/L (98-107); POTASSIUM 4.4 MMOL/L (3.6-5.0); SODIUM 131 MMOL/L (135-145)
[2021-01-11 16:22] LABS: CALCIUM 8.2 MG/DL (8.5-10.1)
[2021-01-11 16:23] LABS: GLUCOSE 204 MG/DL (70-105)
[2021-01-11 16:24] LABS: CARBON DIOXIDE 10 MMOL/L (21-32)
[2021-01-11 16:26] LABS: CREATININE SERUM 0.87 MG/DL (0.60-1.30); GFR ESTIMATED > 60
[2021-01-11 16:27] LABS: BUN/CREATININE RATIO 13
[2021-01-11] MEDS: ENOXAPARIN 30 MG/0.3 ML (LOVENOX) SYR SC SCH (17:36)
[2021-01-11 20:31] LABS: BUN/CREATININE RATIO 10; CALCIUM 8.4 MG/DL (8.5-10.1); CARBON DIOXIDE 12 MMOL/L (21-32); CHLORIDE 107 MMOL/L (98-107); CREATININE SERUM 0.93 MG/DL (0.60-1.30); GFR ESTIMATED > 60; GLUCOSE 145 MG/DL (70-105); SODIUM 134 MMOL/L (135-145)
[2021-01-12] MEDS: POTASSIUM CL 10MEQ/50ML IVPB 50 ML IV SCH ×8 (01:31→15:52)
[2021-01-12] MEDS: 1/2 NS IV SOLUTION 1,000 ML IV SCH ×7 (01:47→23:34)
[2021-01-12 02:55] LABS: BASOPHILS % (AUTO) 0 % (0-10); EOSINOPHILS # (AUTO) 0.1 10^3/uL (0.0-0.3); EOSINOPHILS % (AUTO) 1 % (0-10); HEMATOCRIT 31 % (40-54); HEMOGLOBIN 10.2 g/dL (13.3-17.7); LYMPHOCYTES % (AUTO) 25 % (12-44); MEAN CORPUSCULAR HEMOGLOBIN 28 pg (25-34); MEAN CORPUSCULAR HGB CONC 33 g/dL (32-36); MEAN CORPUSCULAR VOLUME 85 fL (80-99); MEAN PLATELET VOLUME 9.2 fL (9.0-12.2); MONOCYTES % (AUTO) 8 % (0-12); NEUTROPHILS # (AUTO) 7.7 10^3/uL (1.8-7.8); NEUTROPHILS % (AUTO) 65 % (42-75); PLATELET COUNT 237 10^3/uL (130-400); WHITE BLOOD COUNT 11.8 10^3/uL (4.3-11.0)
[2021-01-12 03:22] LABS: CHLORIDE 109 MMOL/L (98-107); POTASSIUM 3.6 MMOL/L (3.6-5.0); SODIUM 134 MMOL/L (135-145)
[2021-01-12 03:23] LABS: GLUCOSE 135 MG/DL (70-105)
[2021-01-12 03:25] LABS: CARBON DIOXIDE 18 MMOL/L (21-32)
[2021-01-12 03:27] LABS: CREATININE SERUM 0.82 MG/DL (0.60-1.30); GFR ESTIMATED > 60; PHOSPHORUS 2.1 MG/DL (2.3-4.7)
[2021-01-12 03:28] LABS: BUN/CREATININE RATIO 7
[2021-01-12 03:30] LABS: MAGNESIUM 1.9 MG/DL (1.6-2.4)
[2021-01-12] MEDS: D5 1/2 NS 1000 ML IV SOLUTION 1,000 ML IV SCH ×4 (03:37→15:52)
--- NOTE | 2021-01-12 04:58 | Pulmonary Consultation ---
History of Present Illness History of Present Illness Date Seen by Provider: Jan 12, 2021 Time Seen by Provider: 04:53 Date of Admission Allergies and Home Medications Allergies Coded Allergies: Penicillins (Verified Allergy, Unknown, 05/23/06) Home Medications Acetaminophen 325 Mg Tablet, 650 MG PO Q6H PRN for PAIN-MILD (1-4), (Reported) TAKES 2 (325MG) TABLETS Insulin Aspart 100 Unit/1 Ml Susp, UNIT SQ TIDAC, (Reported) USES 2 UNITS PER EVERY CARB Insulin Determir 1,000 Units/10 Ml Soln, 5-10 UNITS SQ HS, (Reported) Metoclopramide HCl 10 Mg Tablet, 10 MG PO BID WITH MEALS, (Reported) Pantoprazole Sodium 40 Mg Tablet.dr, 40 MG PO DAILY, (Reported) Past Bdgxyvi-Icsotc-Evxfrv Hx Past Med/Social Hx: Reviewed Nursing Past Med/Soc Hx, Reviewed and Corrections made Patient Social History Alcohol Use: Denies Use Drug of Choice: HX MARIJUANA Smoking Status: Former Smoker Type Used: Cigarettes Former Smoker, Quit: Sep 28, 2012 2nd Hand Smoke Exposure: No Recent Infectious Disease Expo: No Recent Hopitalizations: No Have you traveled recently?: No Alcohol Use?: No Immunizations Up To Date Tetanus Booster (TDap): Unknown PED Vaccines UTD: No Date of Pneumonia Vaccine: Jul 16, 2016 Date of Influenza Vaccine: Aug 11, 2020 Seasonal Allergies Seasonal Allergies: No Past Medical History Surgeries: No Respiratory: Yes Pneumonia Currently Using CPAP: No Currently Using BIPAP: No Cardiac: Yes (CARDIOMYOPATHY DX 2017) Cardiomyopathy Neurological: No Reproductive Disorders: No Sexually Transmitted Disease: No HIV/AIDS: No Genitourinary: No Gastrointestinal: Yes (GASTROPARESIS) Musculoskeletal: No Endocrine: Yes (DX AGE 11, [place] 2001; MULTIPLE ADMITS FOR DKA) Diabetes, Insulin dep Cancer: No Did You Recieve Any Treatments: No Psychosocial: No Integumentary: Yes (WOUNDS TO LOWER LEGS-- REQUIRED WOUND CARE CLINIC TREATMENT) Blood Disorders: No Adverse Reaction/Blood Tranf: No Family Medical History Cardiovascular disease 19 FATHER Hypertension 19 FATHER Heart Disease, Cancer, Hypertension Review of Systems Time Seen by Provider: 04:58 Sepsis Event Evaluation Height, Weight, BMI Height: 5'11.00" Weight: 126lbs. 0.0oz. 57.297078tm; 16.30 BMI Method:Stated Exam Exam Vital Signs Date Time Temp Pulse Resp B/P (MAP) Pulse Ox O2 Delivery O2 Flow Rate FiO2 01/12/21 04:33 37.4 Room Air 01/12/21 04:33 98 Room Air 01/12/21 02:00 98 20 131/86 (101) 100 Room Air 01/12/21 01:00 111 01/12/21 01:00 108 22 137/92 (107) 100 Room Air 01/12/21 00:26 98 Room Air 01/12/21 00:00 106 23 129/88 (102) 99 Room Air 01/11/21 23:00 37.5 Room Air 01/11/21 23:00 105 28 131/93 (106) 100 Room Air 01/11/21 22:00 122 14 143/97 (112) 100 Room Air 01/11/21 21:00 113 31 136/86 (103) 99 Room Air 01/11/21 20:15 116 27 126/88 (101) 99 Room Air 01/11/21 19:30 99 Room Air 01/11/21 19:11 37.0 01/11/21 19:00 111 19 136/82 (100) 100 Room Air 01/11/21 19:00 Room Air 01/11/21 19:00 111 01/11/21 17:00 131 25 102/53 (69) 100 Room Air 01/11/21 16:00 100 Room Air 01/11/21 16:00 128 25 129/72 (91) 100 Room Air 01/11/21 15:30 37.5 01/11/21 15:00 134 24 138/89 (105) 100 Room Air 01/11/21 14:00 135 21 151/91 (111) 100 Room Air 01/11/21 13:00 129 26 142/85 (104) 100 Room Air 01/11/21 12:51 139 01/11/21 12:00 137 33 146/78 (100) 100 Room Air 01/11/21 11:41 Room Air 01/11/21 11:17 148 01/11/21 11:00 109/53 (71) Room Air 01/11/21 10:30 113/59 (77) Room Air 01/11/21 09:00 Room Air 01/11/21 08:00 37.3 128 20 162/82 (108) 99 Room Air 01/11/21 07:15 Room Air I & O 01/12/21 07:00 Intake Total 5390 ml Output Total 4000 ml Balance 1390 ml Height & Weight Height: 5'11.00" Weight: 126lbs. 0.0oz. 57.911566yg; 16.30 BMI Method:Stated General Appearance: No Apparent Distress, WD/WN, Anxious, Chronically ill, Thin HEENT: PERRL/EOMI, Normal ENT Inspection, Pharynx Normal, Moist Mucous Membranes Neck: Full Range of Motion, Normal Inspection, Non Tender Respiratory: Lungs Clear Cardiovascular: Regular Rate, Rhythm Capillary Refill: Less Than 3 Seconds Extremity: Normal Capillary Refill, Normal Inspection, Normal Range of Motion, Non Tender, No Calf Tenderness, No Pedal Edema Neurologic/Psychiatric: Alert, Oriented x3, No Motor/Sensory Deficits, Normal Mood/Affect Skin: Normal Color, Warm/Dry Lymphatic: No Adenopathy Results Lab Laboratory Tests 01/10/21 05:00 01/10/21 13:26 01/11/21 04:50 01/11/21 09:57 01/11/21 11:03 01/11/21 12:45 01/11/21 16:00 01/11/21 20:04 01/12/21 02:15 Assessment/Plan Assessment/Plan Acute DKA - Improving -Admitted 01/09 -Transferred back to ICU last night secondary to worsening DKA -Pt is currently on insulin gtt -Gap is now closed -Repeat Labs at 8am will wait until C02 is > 20 and gap remains closed to D/C insulin gtt -Will give levemeir 2hrs prior to D/Cing insulin gtt IDDM LUIS ANGEL MONGE DO Jan 12, 2021 04:58
[2021-01-12] MEDS ORDERED: POTASSIUM PHOSPHATE INJ 30 MM in NS (IVPB) 250 ML IV ONE (05:00)
[2021-01-12] MEDS: METOCLOPRAMIDE INJ 10 MG/2 ML (REGLAN) IVP SCH ×3 (05:29→17:17)
[2021-01-12] MEDS: MAGNESIUM 1 GM/100 ML IVPB 100 ML IV SCH (06:19)
[2021-01-12] MEDS: KCL 20 MEQ TAB (K-DUR) PO SCH (06:19)
[2021-01-12] MEDS: SENNA W/DOCUSATE (SENOKOT S) TABLET PO SCH ×2 (08:28→21:37)
[2021-01-12] MEDS: PANTOPRAZOLE 40 MG (PROTONIX) TAB PO SCH (08:28)
[2021-01-12 08:40] LABS: CHLORIDE 106 MMOL/L (98-107); POTASSIUM 3.3 MMOL/L (3.6-5.0); SODIUM 132 MMOL/L (135-145)
[2021-01-12 08:41] LABS: CALCIUM 8.3 MG/DL (8.5-10.1)
[2021-01-12 08:42] LABS: GLUCOSE 147 MG/DL (70-105)
[2021-01-12 08:43] LABS: CARBON DIOXIDE 20 MMOL/L (21-32)
[2021-01-12 08:46] LABS: CREATININE SERUM 0.79 MG/DL (0.60-1.30); GFR ESTIMATED > 60
[2021-01-12 08:47] LABS: BUN/CREATININE RATIO 5
--- NOTE | 2021-01-12 10:53 | Progress Note ---
Subjective Subjective/Events-last exam Afebrile, feeling much better today. Hasn't had any intake yet, has ordered some clear liquids to try. Objective Exam Last Set of Vital Signs Vital Signs Date Time Temp Pulse Resp B/P (MAP) Pulse Ox O2 Delivery O2 Flow Rate FiO2 01/12/21 10:00 98 35 163/106 (125) 99 Room Air 01/12/21 07:54 36.7 01/09/21 04:26 21 Capillary Refill : Less Than 3 Seconds I&O Intake and Output 01/12/21 00:00 Intake Total 4395 ml Output Total 3200 ml Balance 1195 ml Intake Oral 1045 ml IV Total 3350 ml Output Urine Total 3200 ml # Voids 2 # Emeses 3 General: Alert, No Acute Distress Lungs: Clear to Auscultation, Normal Air Movement Heart: Other (tachycardic) Abdomen: Normal Bowel Sounds, Soft, Other (diffuse mild ttp) Neuro: Normal Speech Psych/Mental Status: Mental Status NL Results/Procedures Lab Laboratory Tests 01/11/21 11:03: Sodium Level 132L, Potassium Level 5.2H, Chloride Level 97L, Carbon Dioxide Level 5*L, Anion Gap 30H, Blood Urea Nitrogen 14, Creatinine 1.22, Estimat Glomerular Filtration Rate > 60, BUN/Creatinine Ratio 11, Glucose Level 445*H, Calcium Level 8.8, Beta-Hydroxybutyrate (Chem panel) 10.39H 01/11/21 11:27: Glucometer 394H 01/11/21 12:30: Glucometer 266H, Blood Gas Puncture Site R BRAC, Blood Gas Patient Temperature 37, Arterial Blood pH 7.23*L, Arterial Blood Partial Pressure CO2 11*L, Arterial Blood Partial Pressure O2 128H, Arterial Blood HCO3 4*L, Arterial Blood Total CO2 4.7L, Arterial Blood Oxygen Saturation 99, Arterial Blood Base Excess -22.5L , Bony Test POS, Blood Gas Ventilator Setting NO, Blood Gas Inspired Oxygen NA 01/11/21 12:45: Sodium Level 132L, Potassium Level 4.3, Chloride Level 102, Carbon Dioxide Level 6*L, Anion Gap 24H, Blood Urea Nitrogen 15, Creatinine 1.06, Estimat Glomerular Filtration Rate > 60, BUN/Creatinine Ratio 14, Glucose Level 283H, Calcium Level 8.2L 01/11/21 13:29: Glucometer 220H 01/11/21 14:41: Glucometer 193H 01/11/21 15:31: Glucometer 192H 01/11/21 16:00: Sodium Level 131L, Potassium Level 4.4, Chloride Level 103, Carbon Dioxide Level 10L, Anion Gap 18H, Blood Urea Nitrogen 11, Creatinine 0.87, Estimat Glomerular Filtration Rate > 60, BUN/Creatinine Ratio 13, Glucose Level 204H, Calcium Level 8.2L 01/11/21 16:28: Glucometer 273H 01/11/21 17:32: Glucometer 249H 01/11/21 18:27: Glucometer 173H 01/11/21 19:31: Glucometer 133H 01/11/21 20:04: Sodium Level 134L, Potassium Level 4.0, Chloride Level 107, Carbon Dioxide Level 12L, Anion Gap 15H, Blood Urea Nitrogen 9, Creatinine 0.93, Estimat Glomerular Filtration Rate > 60, BUN/Creatinine Ratio 10, Glucose Level 145H, Calcium Level 8.4L 01/11/21 20:29: Glucometer 152H 01/11/21 21:33: Glucometer 135H 01/11/21 22:29: Glucometer 126H 01/11/21 23:35: Glucometer 121H 01/12/21 00:39: Glucometer 119H 01/12/21 01:33: Glucometer 124H 01/12/21 02:15: White Blood Count 11.8H, Red Blood Count 3.59L, Hemoglobin 10.2L, Hematocrit 31L , Mean Corpuscular Volume 85, Mean Corpuscular Hemoglobin 28, Mean Corpuscular Hemoglobin Concent 33, Red Cell Distribution Width 13.2, Platelet Count 237, Mean Platelet Volume 9.2, Immature Granulocyte % (Auto) 0, Neutrophils (%) (Auto) 65, Lymphocytes (%) (Auto) 25, Monocytes (%) (Auto) 8, Eosinophils (%) (Auto) 1, Basophils (%) (Auto) 0, Neutrophils # (Auto) 7.7, Lymphocytes # (Auto) 3.0, Monocytes # (Auto) 1.0, Eosinophils # (Auto) 0.1, Basophils # (Auto) 0.0, Immature Granulocyte # (Auto) 0.0, Sodium Level 134L, Potassium Level 3.6, Chloride Level 109H, Carbon Dioxide Level 18L, Anion Gap 7, Blood Urea Nitrogen 6L, Creatinine 0.82, Estimat Glomerular Filtration Rate > 60, BUN/Creatinine Ratio 7, Glucose Level 135H, Calcium Level 8.0L, Phosphorus Level 2.1L, Magnesium Level 1.9 01/12/21 02:29: Glucometer 138H 01/12/21 03:39: Glucometer 153H 01/12/21 04:31: Glucometer 151H 01/12/21 05:33: Glucometer 172H 01/12/21 06:31: Glucometer 155H 01/12/21 07:40: Glucometer 140H 01/12/21 08:20: Sodium Level 132L, Potassium Level 3.3L, Chloride Level 106, Carbon Dioxide Level 20L, Anion Gap 6, Blood Urea Nitrogen 4L, Creatinine 0.79, Estimat Glomerular Filtration Rate > 60, BUN/Creatinine Ratio 5, Glucose Level 147H, Calcium Level 8.3L, Beta-Hydroxybutyrate (Chem panel) 0.05 01/12/21 08:35: Glucometer 155H 01/12/21 09:29: Glucometer 162H 01/12/21 10:33: Glucometer 151H Assessment/Plan Assessment/Plan (1) Diabetic ketoacidosis Status: Acute Assessment & Plan: Was doing better and resolved, however this am (01/11) had low CO2 in spite of normal glucose and is clinically doing worse. Will return to ICU and resume insulin drip and DKA protocol. 01/12- AG closed, beta hydroxybutyrate negative this am after being on insulin drip since transfer. CO2 up to 20, will continue drip until next BMP and if gap remains closed and CO2 remains above 20, will start long acting insulin and d/c drip 2 hours later. Qualifiers: Qualified Codes: E10.10 - Type 1 diabetes mellitus with ketoacidosis without coma (2) IDDM (insulin dependent diabetes mellitus) Status: Chronic (3) DVT prophylaxis Status: Acute Assessment & Plan: Enoxaparin DEANNE BLANCO MD Jan 12, 2021 10:53
[2021-01-12] MEDS: hydrALAZINE (APRESOLINE) 25 MG TAB PO PRN (11:38)
[2021-01-12] MEDS ORDERED: lisINopril 20 MG (PRINIVIL) TABLET PO NR (15:15)
[2021-01-12] MEDS: ENOXAPARIN 30 MG/0.3 ML (LOVENOX) SYR SC SCH (15:54)
[2021-01-12 15:57] LABS: CHLORIDE 103 MMOL/L (98-107); POTASSIUM 3.9 MMOL/L (3.6-5.0); SODIUM 132 MMOL/L (135-145)
[2021-01-12 15:58] LABS: CALCIUM 8.2 MG/DL (8.5-10.1)
[2021-01-12 15:59] LABS: GLUCOSE 241 MG/DL (70-105)
[2021-01-12 16:00] LABS: CARBON DIOXIDE 20 MMOL/L (21-32)
[2021-01-12 16:03] LABS: CREATININE SERUM 0.85 MG/DL (0.60-1.30); GFR ESTIMATED > 60
[2021-01-12 16:04] LABS: BUN/CREATININE RATIO 2
[2021-01-12] MEDS ORDERED: inSUlin ASPART (NovoLOG) 1 UNIT/0.01 ML (CHARGE PER UNIT) SQ PRN ×2 (16:45→17:00)
[2021-01-12] MEDS: NS W/KCL 20 MEQ/L 1,000 ML IV SCH (17:17)
[2021-01-12 21:16] LABS: CHLORIDE 106 MMOL/L (98-107); POTASSIUM 3.6 MMOL/L (3.6-5.0); SODIUM 135 MMOL/L (135-145)
[2021-01-12 21:17] LABS: CALCIUM 7.9 MG/DL (8.5-10.1)
[2021-01-12 21:18] LABS: GLUCOSE 145 MG/DL (70-105)
[2021-01-12 21:19] LABS: CARBON DIOXIDE 22 MMOL/L (21-32)
[2021-01-12 21:22] LABS: BUN/CREATININE RATIO 3; CREATININE SERUM 0.66 MG/DL (0.60-1.30); GFR ESTIMATED > 60
[2021-01-13] MEDS: METOCLOPRAMIDE INJ 10 MG/2 ML (REGLAN) IVP SCH ×5 (00:40→23:34)
[2021-01-13] MEDS: 1/2 NS IV SOLUTION 1,000 ML IV SCH (00:40)
[2021-01-13] MEDS: NS W/KCL 20 MEQ/L 1,000 ML IV SCH (02:57)
[2021-01-13 03:15] LABS: BASOPHILS % (AUTO) 0 % (0-10); EOSINOPHILS # (AUTO) 0.1 10^3/uL (0.0-0.3); EOSINOPHILS % (AUTO) 2 % (0-10); HEMATOCRIT 32 % (40-54); LYMPHOCYTES # (AUTO) 2.2 10^3/uL (1.0-4.0); LYMPHOCYTES % (AUTO) 26 % (12-44); MEAN CORPUSCULAR HEMOGLOBIN 29 pg (25-34); MEAN CORPUSCULAR HGB CONC 34 g/dL (32-36); MEAN CORPUSCULAR VOLUME 84 fL (80-99); MEAN PLATELET VOLUME 9.3 fL (9.0-12.2); MONOCYTES # (AUTO) 0.5 10^3/uL (0.0-1.0); MONOCYTES % (AUTO) 6 % (0-12); NEUTROPHILS # (AUTO) 5.8 10^3/uL (1.8-7.8); NEUTROPHILS % (AUTO) 66 % (42-75); PLATELET COUNT 277 10^3/uL (130-400); WHITE BLOOD COUNT 8.7 10^3/uL (4.3-11.0)
[2021-01-13 03:29] LABS: CHLORIDE 108 MMOL/L (98-107); POTASSIUM 3.7 MMOL/L (3.6-5.0); SODIUM 136 MMOL/L (135-145)
[2021-01-13 03:30] LABS: CALCIUM 7.9 MG/DL (8.5-10.1)
[2021-01-13 03:31] LABS: GLUCOSE 96 MG/DL (70-105)
[2021-01-13 03:32] LABS: CARBON DIOXIDE 21 MMOL/L (21-32)
[2021-01-13 03:34] LABS: PHOSPHORUS 3.1 MG/DL (2.3-4.7)
[2021-01-13 03:35] LABS: GFR ESTIMATED > 60
[2021-01-13 03:36] LABS: BUN/CREATININE RATIO 7
[2021-01-13 03:37] LABS: MAGNESIUM 1.7 MG/DL (1.6-2.4)
[2021-01-13] MEDS ORDERED: DEXTROSE 50% 50 ML (IMS) SYR IV PRN (05:00)
--- NOTE | 2021-01-13 05:00 | Pulmonary Progress Note ---
Subjective Time Seen by a Provider: 04:55 Subjective/Events-last exam Pt appears to be doing better and is off insulin Sepsis Event Evaluation Height, Weight, BMI Height: 5'11.00" Weight: 126lbs. 0.0oz. 57.399147kn; 16.30 BMI Method:Stated Exam Exam Vital Signs Date Time Temp Pulse Resp B/P (MAP) Pulse Ox O2 Delivery O2 Flow Rate FiO2 01/13/21 03:54 36.8 Room Air 01/13/21 03:53 98 Room Air 01/13/21 03:00 101 13 140/96 (111) 99 Room Air 01/13/21 02:00 93 21 145/94 (111) 99 Room Air 01/13/21 01:00 96 01/13/21 01:00 96 17 128/82 (97) 100 Room Air 01/13/21 00:00 121 22 130/86 (101) 95 Room Air 01/12/21 23:44 99 Room Air 01/12/21 23:00 36.2 Room Air 01/12/21 23:00 105 19 158/102 (120) 90 Room Air 01/12/21 22:00 112 16 136/99 (111) 100 Room Air 01/12/21 21:00 99 26 131/87 (102) 98 Room Air 01/12/21 20:00 36.6 01/12/21 20:00 99 Room Air 01/12/21 20:00 103 16 145/92 (109) 100 Room Air 01/12/21 19:00 105 21 150/99 (116) 100 Room Air 01/12/21 19:00 105 01/12/21 19:00 Room Air 01/12/21 18:00 108 18 145/98 (114) 100 Room Air 01/12/21 17:00 101 23 151/95 (113) 100 Room Air 01/12/21 16:00 35.6 01/12/21 16:00 100 26 166/106 (126) 100 Room Air 01/12/21 16:00 97 Room Air 01/12/21 15:00 134 18 149/93 (111) 94 Room Air 01/12/21 14:00 101 17 166/11 (62) 99 Room Air 01/12/21 13:00 95 10 155/103 (120) 100 Room Air 01/12/21 12:53 96 01/12/21 12:00 100 26 160/107 (124) 100 Room Air 01/12/21 11:54 36.9 01/12/21 11:40 97 Room Air 01/12/21 11:00 99 22 155/106 (122) 100 Room Air 01/12/21 10:00 98 35 163/106 (125) 99 Room Air 01/12/21 09:00 112 16 162/104 (123) 100 Room Air 01/12/21 08:00 110 11 164/98 (120) 100 Room Air 01/12/21 08:00 98 Room Air 01/12/21 07:54 36.7 01/12/21 07:00 92 11 135/98 (110) 100 Room Air 01/12/21 06:42 95 01/12/21 06:17 Room Air 01/12/21 06:00 96 25 131/96 (108) 100 Room Air 01/12/21 05:00 92 22 113/72 (86) 100 Room Air I & O 01/13/21 07:00 Intake Total 2590 ml Output Total 2625 ml Balance -35 ml Height & Weight Height: 5'11.00" Weight: 126lbs. 0.0oz. 57.609854ym; 16.30 BMI Method:Stated General Appearance: No Apparent Distress, WD/WN, Anxious, Chronically ill, Thin HEENT: PERRL/EOMI, Normal ENT Inspection, Pharynx Normal, Moist Mucous Membranes Neck: Full Range of Motion, Normal Inspection, Non Tender Respiratory: Lungs Clear Cardiovascular: Regular Rate, Rhythm Capillary Refill: Less Than 3 Seconds Extremity: Normal Capillary Refill, Normal Inspection, Normal Range of Motion, Non Tender, No Calf Tenderness, No Pedal Edema Neurologic/Psychiatric: Alert, Oriented x3, No Motor/Sensory Deficits, Normal Mood/Affect Skin: Normal Color, Warm/Dry Lymphatic: No Adenopathy Results Lab Laboratory Tests 01/11/21 09:57 01/11/21 11:03 01/11/21 12:45 01/11/21 16:00 01/11/21 20:04 01/12/21 02:15 01/12/21 08:20 01/12/21 15:32 01/12/21 20:42 01/13/21 02:45 Assessment/Plan Assessment/Plan Acute DKA - Improving -Admitted 01/09 -Transferred back to ICU last night secondary to worsening DKA -Pt is currently on insulin gtt -Gap is now closed -Repeat Labs at 8am will wait until C02 is > 20 and gap remains closed to D/C insulin gtt -Will give levemeir 2hrs prior to D/Cing insulin gtt Hypoglycemia - Mild -Pt is aware when he starts to have symptoms of hypoglycemia -Hypoglycemia was 6hrs after PM [place]. -Decrease Levemir to 5units HS -May need 5 units BID -Change Accu checks to Q4 -PRN D50 IDDM LUIS ANGEL MONGE DO Jan 13, 2021 05:00
[2021-01-13] MEDS: POTASSIUM CL 10MEQ/50ML IVPB 50 ML IV SCH (06:22)
[2021-01-13] MEDS: KCL 20 MEQ TAB (K-DUR) PO SCH (06:22)
[2021-01-13] MEDS: MAGNESIUM 1 GM/100 ML IVPB 100 ML IV SCH (06:22)
[2021-01-13] MEDS: lisINopril 20 MG (PRINIVIL) TABLET PO SCH (08:07)
[2021-01-13] MEDS: PANTOPRAZOLE 40 MG (PROTONIX) TAB PO SCH (08:07)
[2021-01-13] MEDS: SENNA W/DOCUSATE (SENOKOT S) TABLET PO SCH ×2 (08:40→20:24)
[2021-01-13] MEDS: hydrALAZINE (APRESOLINE) 25 MG TAB PO PRN ×2 (09:45→15:49)
--- NOTE | 2021-01-13 10:42 | Diagnostic Imaging Report ---
Clinical indication: Patient with DKA. ICU management. Exam: Portable chest x-ray upright view. Comparisons: Chest x-ray dated 01/09/2021. Findings: Lungs/pleura: Lungs are clear. There is no pneumothorax. There is no pleural effusion. Mediastinum: Unremarkable. Pulmonary vasculature: Unremarkable. Heart: Unremarkable. Bones/extrathoracic soft tissue: Unremarkable. Impression: There is no radiographic evidence of acute cardiopulmonary process. Dictated by: Dictated on workstation # [id number]
[2021-01-13] MEDS: inSUlin ASPART (NovoLOG) 1 UNIT/0.01 ML (CHARGE PER UNIT) SC SCH ×4 (11:18→20:14)
--- NOTE | 2021-01-13 12:46 | Progress Note ---
Subjective Subjective/Events-last exam Feeling better, eating well. Objective Exam Last Set of Vital Signs Vital Signs Date Time Temp Pulse Resp B/P (MAP) Pulse Ox O2 Delivery O2 Flow Rate FiO2 01/13/21 12:00 96 24 139/85 (103) 100 Room Air 01/13/21 03:54 36.8 01/09/21 04:26 21 Capillary Refill : Less Than 3 Seconds I&O Intake and Output 01/13/21 00:00 Intake Total 2680 ml Output Total 3925 ml Balance -1245 ml Intake Oral 1530 ml IV Total 1150 ml Output Urine Total 3925 ml # Bowel Movements 4 General: Alert, No Acute Distress Lungs: Clear to Auscultation Heart: Other (tachycardic) Abdomen: Normal Bowel Sounds, Soft, Other (mild ttp) Extremities: No Edema Neuro: Normal Speech Results/Procedures Lab Laboratory Tests 01/12/21 13:33: Glucometer 126H 01/12/21 14:43: Glucometer 134H 01/12/21 15:27: Glucometer 216H 01/12/21 15:32: Sodium Level 132L, Potassium Level 3.9, Chloride Level 103, Carbon Dioxide Level 20L, Anion Gap 9, Blood Urea Nitrogen 2L, Creatinine 0.85, Estimat Glomerular Filtration Rate > 60, BUN/Creatinine Ratio 2, Glucose Level 241H, Calcium Level 8.2L 01/12/21 15:50: Glucometer 224H 01/12/21 16:42: Glucometer 176H 01/12/21 17:24: Glucometer 156H 01/12/21 18:36: Glucometer 94 01/12/21 20:42: Sodium Level 135, Potassium Level 3.6, Chloride Level 106, Carbon Dioxide Level 22, Anion Gap 7, Blood Urea Nitrogen < 2L, Creatinine 0.66, Estimat Glomerular Filtration Rate > 60, BUN/Creatinine Ratio 3, Glucose Level 145H, Calcium Level 7.9L 01/12/21 22:55: Glucometer 52*L 01/12/21 23:29: Glucometer 95 01/13/21 02:45: Sodium Level 136, Potassium Level 3.7, Chloride Level 108H, Carbon Dioxide Level 21, Anion Gap 7, Blood Urea Nitrogen 4L, Creatinine 0.60, Estimat Glomerular Filtration Rate > 60, BUN/Creatinine Ratio 7, Glucose Level 96, Calcium Level 7.9L, White Blood Count 8.7, Red Blood Count 3.83L, Hemoglobin 11.0L, Hematocrit 32L, Mean Corpuscular Volume 84, Mean Corpuscular Hemoglobin 29, Mean Corpuscular Hemoglobin Concent 34, Red Cell Distribution Width 13.1, Platelet Count 277, Mean Platelet Volume 9.3, Immature Granulocyte % (Auto) 1, Neutrophils (%) (Auto) 66, Lymphocytes (%) (Auto) 26, Monocytes (%) (Auto) 6, Eosinophils (%) (Auto) 2, Basophils (%) (Auto) 0, Neutrophils # (Auto) 5.8, Lymphocytes # (Auto) 2.2, Monocytes # (Auto) 0.5, Eosinophils # (Auto) 0.1, Basophils # (Auto) 0.0, Immature Granulocyte # (Auto) 0.0, Phosphorus Level 3.1, Magnesium Level 1.7 01/13/21 08:14: Glucometer 180H 01/13/21 11:08: Glucometer 258H Assessment/Plan Assessment/Plan (1) Diabetic ketoacidosis Status: Acute Assessment & Plan: Was doing better and resolved, however this am (01/11) had low CO2 in spite of normal glucose and is clinically doing worse. Will return to ICU and resume insulin drip and DKA protocol. 01/12- AG closed, beta hydroxybutyrate negative this am after being on insulin drip since transfer. CO2 up to 20, will continue drip until next BMP and if gap remains closed and CO2 remains above 20, will start long acting insulin and d/c drip 2 hours later. 01/13 transitioned off of drip yesterday, did have low blood sugar overnight, will decrease levemir dose. Transfer to floor. Qualifiers: Qualified Codes: E10.10 - Type 1 diabetes mellitus with ketoacidosis without coma (2) IDDM (insulin dependent diabetes mellitus) Status: Chronic (3) DVT prophylaxis Status: Acute Assessment & Plan: Enoxaparin DEANNE BLANCO MD Jan 13, 2021 12:46
[2021-01-13 13:21] LABS: BUN/CREATININE RATIO 7; CALCIUM 8.4 MG/DL (8.5-10.1); CARBON DIOXIDE 26 MMOL/L (21-32); CHLORIDE 100 MMOL/L (98-107); CREATININE SERUM 0.68 MG/DL (0.60-1.30); GFR ESTIMATED > 60; GLUCOSE 173 MG/DL (70-105); POTASSIUM 3.8 MMOL/L (3.6-5.0); SODIUM 133 MMOL/L (135-145)
[2021-01-13] MEDS: ENOXAPARIN 30 MG/0.3 ML (LOVENOX) SYR SC SCH (15:49)
--- NOTE | 2021-01-14 04:18 | Pulmonary Progress Note ---
Subjective Time Seen by a Provider: 04:18 Sepsis Event Evaluation Height, Weight, BMI Height: 5'11.00" Weight: 126lbs. 0.0oz. 57.172199lm; 16.30 BMI Method:Stated Exam Exam Vital Signs Date Time Temp Pulse Resp B/P (MAP) Pulse Ox O2 Delivery O2 Flow Rate FiO2 01/14/21 01:54 Room Air 01/13/21 23:30 36.5 88 14 125/78 (94) 99 Room Air 01/13/21 20:15 Room Air 01/13/21 19:32 36.4 106 18 116/77 (90) 100 Room Air 01/13/21 16:10 36.4 101 22 168/95 (119) 100 Room Air 01/13/21 15:10 98 Room Air 01/13/21 12:42 112 01/13/21 12:36 01/13/21 12:00 96 24 139/85 (103) 100 Room Air 01/13/21 11:40 98 Room Air 01/13/21 11:00 95 24 163/104 (123) 100 Room Air 01/13/21 10:00 94 18 161/106 (124) 97 Room Air 01/13/21 09:00 107 15 149/103 (118) 100 Room Air 01/13/21 08:00 110 15 154/104 (121) 99 Room Air 01/13/21 07:40 97 Room Air 01/13/21 07:38 Room Air 01/13/21 07:00 91 17 177/110 (132) 100 Room Air 01/13/21 06:39 120 01/13/21 06:00 117 16 142/92 (109) 99 Room Air 01/13/21 05:00 81 12 143/90 (107) 99 Room Air I & O 01/14/21 07:00 Intake Total 1400 ml Output Total 750 ml Balance 650 ml Height & Weight Height: 5'11.00" Weight: 126lbs. 0.0oz. 57.580290ul; 16.30 BMI Method:Stated General Appearance: No Apparent Distress, WD/WN, Anxious, Chronically ill, Thin HEENT: PERRL/EOMI, Normal ENT Inspection, Pharynx Normal, Moist Mucous Membranes Neck: Full Range of Motion, Normal Inspection, Non Tender Respiratory: Lungs Clear Cardiovascular: Regular Rate, Rhythm Capillary Refill: Less Than 3 Seconds Extremity: Normal Capillary Refill, Normal Inspection, Normal Range of Motion, Non Tender, No Calf Tenderness, No Pedal Edema Neurologic/Psychiatric: Alert, Oriented x3, No Motor/Sensory Deficits, Normal Mood/Affect Skin: Normal Color, Warm/Dry Lymphatic: No Adenopathy Results Lab Laboratory Tests 01/12/21 08:20 01/12/21 15:32 01/12/21 20:42 01/13/21 02:45 01/13/21 12:53 Assessment/Plan Assessment/Plan Acute DKA - Improving -Admitted 01/09 -Transferred back to ICU last night secondary to worsening DKA -Pt is currently on insulin gtt -Gap is now closed -Repeat Labs at 8am will wait until C02 is > 20 and gap remains closed to D/C insulin gtt -Will give levemeir 2hrs prior to D/Cing insulin gtt Hypoglycemia - Mild -Pt is aware when he starts to have symptoms of hypoglycemia -Hypoglycemia was 6hrs after PM [place]. -Decrease Levemir to 5units HS -May need 5 units BID -Change Accu checks to Q4 -PRN D50 IDDM LUIS ANGEL MONGE DO Jan 14, 2021 04:18
[2021-01-14 04:50] LABS: HEMOGLOBIN 11.5 g/dL (13.3-17.7); MEAN PLATELET VOLUME 9.5 fL (9.0-12.2); WHITE BLOOD COUNT 7.5 10^3/uL (4.3-11.0)
[2021-01-14 05:14] LABS: BUN/CREATININE RATIO 12; CALCIUM 8.3 MG/DL (8.5-10.1); CARBON DIOXIDE 24 MMOL/L (21-32); CHLORIDE 102 MMOL/L (98-107); CREATININE SERUM 0.66 MG/DL (0.60-1.30); GFR ESTIMATED > 60; GLUCOSE 206 MG/DL (70-105); POTASSIUM 4.2 MMOL/L (3.6-5.0); SODIUM 135 MMOL/L (135-145)
[2021-01-14] MEDS: inSUlin ASPART (NovoLOG) 1 UNIT/0.01 ML (CHARGE PER UNIT) SC SCH ×4 (06:37→11:21)
[2021-01-14] MEDS: METOCLOPRAMIDE INJ 10 MG/2 ML (REGLAN) IVP SCH ×2 (06:38→11:21)
[2021-01-14] MEDS: lisINopril 20 MG (PRINIVIL) TABLET PO SCH (07:44)
[2021-01-14] MEDS: PANTOPRAZOLE 40 MG (PROTONIX) TAB PO SCH (07:45)
[2021-01-14] MEDS: SENNA W/DOCUSATE (SENOKOT S) TABLET PO SCH (07:45)
[2021-01-14] MEDS ORDERED: LISI20TA26 PO (08:08)
[2021-01-14 11:44] VITALS: BP 165/96
--- NOTE | 2021-01-14 12:32 | Discharge Summary ---
Discharge Summary Hospital Course Problems/Diagnosis: (1) Diabetic ketoacidosis Status: Resolved Resolution Date/Time: 01/14/21 @ 12:30 Assessment & Plan: Was doing better and resolved, however this am (01/11) had low CO2 in spite of normal glucose and is clinically doing worse. Will return to ICU and resume insulin drip and DKA protocol. 01/12- AG closed, beta hydroxybutyrate negative this am after being on insulin drip since transfer. CO2 up to 20, will continue drip until next BMP and if gap remains closed and CO2 remains above 20, will start long acting insulin and d/c drip 2 hours later. 01/13 transitioned off of drip yesterday, did have low blood sugar overnight, will decrease levemir dose. Transfer to floor. 01/14 remains stable, discharged on home insulin. Qualifiers: Qualified Codes: E10.10 - Type 1 diabetes mellitus with ketoacidosis without coma (2) IDDM (insulin dependent diabetes mellitus) Status: Chronic (3) Hypertension Status: Acute Assessment & Plan: Blood pressure elevated throughout stay, started on lisinopril. Given age and body habitus, if BP remains elevated, would recommend further work-up for possible secondary hypertension outpatient. Hospital Course Date of Admission: Jan 09, 2021 at 02:34 Admission Diagnosis : [facility] Date [facility]: 01/14/21 Discharge Diagnosis: See problem list Hospital Course: See problem list Labs and Pending Lab Test: Laboratory Tests 01/13/21 12:53: Sodium Level 133L, Potassium Level 3.8, Chloride Level 100, Carbon Dioxide Level 26, Anion Gap 7, Blood Urea Nitrogen 5L, Creatinine 0.68, Estimat Glomerular Filtration Rate > 60, BUN/Creatinine Ratio 7, Glucose Level 173H, Calcium Level 8.4L 01/13/21 15:43: Glucometer 132H 01/13/21 20:05: Glucometer 88 01/14/21 00:22: Glucometer 68L 01/14/21 01:02: Glucometer 105 01/14/21 04:43: White Blood Count 7.5, Red Blood Count 4.04L, Hemoglobin 11.5L, Hematocrit 34L, Mean Corpuscular Volume 83, Mean Corpuscular Hemoglobin 29, Mean Corpuscular Hemoglobin Concent 34, Red Cell Distribution Width 12.8, Platelet Count 291, Mean Platelet Volume 9.5, Sodium Level 135, Potassium Level 4.2, Chloride Level 102, Carbon Dioxide Level 24, Anion Gap 9, Blood Urea Nitrogen 8, Creatinine 0.66, Estimat Glomerular Filtration Rate > 60, BUN/Creatinine Ratio 12, Glucose Level 206H, Calcium Level 8.3L 01/14/21 05:29: Glucometer 209H 01/14/21 11:03: Glucometer 241H Home Meds Active Lisinopril 20 Mg Tablet 20 Mg PO DAILY Reported Tylenol (Acetaminophen) 325 Mg Tablet 650 Mg PO Q6H PRN TAKES 2 (325MG) TABLETS Metoclopramide HCl 10 Mg Tablet 10 Mg PO BID WITH MEALS Pantoprazole Sodium 40 Mg Tablet.dr 40 Mg PO DAILY Novolog (Insulin Aspart) 100 Unit/1 Ml Susp Unit SQ TIDAC USES 2 UNITS PER EVERY CARB Levemir (Insulin Determir) 1,000 Units/10 Ml Soln 5-10 Units SQ HS Assessment/Pt DC Instructions Follow up with ALEXIS Nguyen on 01/20 at 4:40 pm. Discharge Physical Examination Allergies: Coded Allergies: Penicillins (Verified Allergy, Unknown, 05/23/06) General Appearance: No Apparent Distress, Thin Respiratory: Lungs Clear, Normal Breath Sounds Cardiovascular: Regular Rate, Rhythm, No Murmur Gastrointestinal: Normal Bowel Sounds, Non Tender, Soft Extremity: No Pedal Edema Skin: Warm/Dry Neurologic/Psychiatric: Alert, Normal Mood/Affect Copy Copies To 1: ALEXIS Nguyen BETHANY N MD Jan 14, 2021 12:32
[2021-01-14 13:00] VITALS: BP 165/96
== END 2021-01-14 13:00 | disposition home or self-care (01) | DRG 638 ==
LOC: EDUNIT# 00:59 → ER 01:02 → ICU 02:34 → 4TH 17:29 → ICU 01-11 10:30 → 4TH 01-13 15:20
PROVIDERS: ADMIT Internal Medicine; ATTEND Family Medicine
DX: E10.10 Type 1 diabetes mellitus with ketoacidosis without coma (principal); I42.9 Cardiomyopathy, unspecified; E10.649 Type 1 diabetes mellitus with hypoglycemia without coma; E10.43 Type 1 diabetes mellitus with diabetic autonomic (poly)neuropathy; K31.84 Gastroparesis; Z79.4 Long term (current) use of insulin; E86.0 Dehydration; I10 Essential (primary) hypertension; Z87.891 Personal history of nicotine dependence; Z87.01 Personal history of pneumonia (recurrent); Z88.0 Allergy status to penicillin
CPT/HCPCS: 36415; 36600; 71045; 80048; 80053; 81000; 82010; 82805; 82962; 83690; 83735; 84100; 85007; 85025; 85027; 94760; 96361; 96365; 96375; 99291

== ENCOUNTER 2021-02-19 15:15 | Inpatient (IN) | payer SELFPAY ==
[~2021-02-19] VITALS: Ht 180.3 cm; Wt 56.1 kg
[~2021-02-19 15:15] MED LIST changes: +ACET325T38 PO; +LISI20TA26 PO; +MTC10T PO
[2021-02-19] MEDS: LACTATED RINGERS 1,000 ML IV SCH ×3 (16:17→21:43)
[2021-02-19 16:19] LABS: BASOPHILS # (AUTO) 0.1 10^3/uL (0.0-0.1); BASOPHILS % (AUTO) 0 % (0-10); EOSINOPHILS % (AUTO) 0 % (0-10); HEMATOCRIT 38 % (40-54); HEMOGLOBIN 12.9 g/dL (13.3-17.7); LYMPHOCYTES # (AUTO) 1.3 10^3/uL (1.0-4.0); LYMPHOCYTES % (AUTO) 8 % (12-44); MEAN CORPUSCULAR HEMOGLOBIN 29 pg (25-34); MEAN CORPUSCULAR HGB CONC 34 g/dL (32-36); MEAN CORPUSCULAR VOLUME 84 fL (80-99); MEAN PLATELET VOLUME 8.7 fL (9.0-12.2); MONOCYTES # (AUTO) 0.4 10^3/uL (0.0-1.0); MONOCYTES % (AUTO) 2 % (0-12); NEUTROPHILS # (AUTO) 15.2 10^3/uL (1.8-7.8); NEUTROPHILS % (AUTO) 89 % (42-75); PLATELET COUNT 318 10^3/uL (130-400); WHITE BLOOD COUNT 17.1 10^3/uL (4.3-11.0)
[2021-02-19 16:30] LABS: ALBUMIN 4.3 GM/DL (3.2-4.5); CHLORIDE 102 MMOL/L (98-107); POTASSIUM 3.7 MMOL/L (3.6-5.0); SODIUM 139 MMOL/L (135-145)
[2021-02-19] MEDS ORDERED: ONDANSETRON 4 MG/2 ML (SDV) Z0FRAN IVP ONE (16:30)
[2021-02-19 16:32] LABS: CALCIUM 9.8 MG/DL (8.5-10.1)
[2021-02-19 16:33] LABS: GLUCOSE 181 MG/DL (70-105); TOTAL PROTEIN 7.5 GM/DL (6.4-8.2)
[2021-02-19 16:34] LABS: BILIRUBIN,TOTAL 0.7 MG/DL (0.1-1.0); CARBON DIOXIDE 23 MMOL/L (21-32)
[2021-02-19 16:36] LABS: ALKALINE PHOSPHATASE 92 U/L (40-136)
[2021-02-19 16:37] LABS: BAND NEUTROPHILS 0 %; BASOPHILS % (MANUAL) 0 %; CREATININE SERUM 0.81 MG/DL (0.60-1.30); EOSINOPHILS % (MANUAL) 0 %; GFR ESTIMATED > 60; LYMPHOCYTES % (MANUAL) 7 %; MONOCYTES % (MANUAL) 0 %; NEUTROPHILS % (MANUAL) 93 %; RBC MORPH NORMAL
[2021-02-19 16:38] LABS: BUN/CREATININE RATIO 19
[2021-02-19 16:39] LABS: ALANINE AMINOTRANSFERASE 19 U/L (0-55)
[2021-02-19] MEDS ORDERED: LACTATED RINGERS 1,000 ML IV SCH (17:30)
--- NOTE | 2021-02-19 17:39 | ED General ---
General Chief Complaint: Glucose Problems Stated Complaint: DM, N/V Nursing Triage Note: AMB TO ROOM REPORTS THAT HE IS DIABETIC AND HAS BEEN VOMITING SINCE THIS AM Nursing Sepsis Screen: No Definite Risk Source of Information: Patient Exam Limitations: No Limitations History of Present Illness Date Seen by Provider: February 19, 2021 Time Seen by Provider: 15:37 Initial Comments To ER with periumbilical abdominal pain nausea vomiting. History of diabetic ketoacidosis. He has been vomiting all day. Timing/Duration: 12-24 Hours Severity: Moderate Associated Systoms: Nausea/Vomiting Allergies and Home Medications Allergies Coded Allergies: Penicillins (Verified Allergy, Unknown, 05/23/06) Home Medications Acetaminophen 325 Mg Tablet, 650 MG PO Q6H PRN for PAIN-MILD (1-4), (Reported) TAKES 2 (325MG) TABLETS Insulin Aspart 100 Unit/1 Ml Susp, UNIT SQ TIDAC, (Reported) USES 2 UNITS PER EVERY CARB Insulin Determir 1,000 Units/10 Ml Soln, 5-10 UNITS SQ HS, (Reported) Lisinopril 20 Mg Tablet, 20 MG PO DAILY Prescribed by: DEANNE BLANCO on 01/14/21 0808 Metoclopramide HCl 10 Mg Tablet, 10 MG PO BID WITH MEALS, (Reported) Pantoprazole Sodium 40 Mg Tablet.dr, 40 MG PO DAILY, (Reported) Patient Home Medication List Home Medication List Reviewed: Yes Review of Systems Review of Systems Constitutional: see HPI EENTM: see HPI Respiratory: no symptoms reported Cardiovascular: no symptoms reported Gastrointestinal: abdominal pain, nausea, vomiting Genitourinary: no symptoms reported Musculoskeletal: no symptoms reported Skin: no symptoms reported Psychiatric/Neurological: No Symptoms Reported Hematologic/Lymphatic: No Symptoms Reported Immunological/Allergic: no symptoms reported Past Eiugbtb-Fbrzim-Yexybp Hx Patient Social History Drug of Choice: HX MARIJUANA Type Used: Cigarettes Former Smoker, Quit: Sep 28, 2012 2nd Hand Smoke Exposure: No Recent Infectious Disease Expo: No Recent Hopitalizations: No Immunizations Up To Date Tetanus Booster (TDap): Unknown PED Vaccines UTD: No Date of Pneumonia Vaccine: Jul 16, 2016 Date of Influenza Vaccine: Aug 11, 2020 Seasonal Allergies Seasonal Allergies: No Past Medical History Surgeries: No Respiratory: Yes Pneumonia Currently Using CPAP: No Currently Using BIPAP: No Cardiac: Yes (CARDIOMYOPATHY DX 2017) Cardiomyopathy Neurological: No Reproductive Disorders: No Sexually Transmitted Disease: No HIV/AIDS: No Genitourinary: No Gastrointestinal: Yes (GASTROPARESIS) Musculoskeletal: No Endocrine: Yes (DX AGE 11, [place] 2002; MULTIPLE ADMITS FOR DKA) Diabetes, Insulin dep Cancer: No Did You Recieve Any Treatments: No Psychosocial: No Integumentary: Yes (WOUNDS TO LOWER LEGS-- REQUIRED WOUND CARE CLINIC TREATMENT) Blood Disorders: No Adverse Reaction/Blood Tranf: No Family Medical History Cardiovascular disease 19 FATHER Hypertension 19 FATHER Heart Disease, Cancer, Hypertension Physical Exam Vital Signs Vital Signs - First Documented 02/19/21 15:59 Pulse 107 Resp 18 B/P (MAP) 176/92 (120) Pulse Ox 99 Capillary Refill : Less Than 3 Seconds Height, Weight, BMI Height: 5'11.00" Weight: 126lbs. 0.0oz. 57.050063dj; 17.00 BMI Method:Stated General Appearance: No Apparent Distress, WD/WN, Thin Eyes: Bilateral Eye Normal Inspection, Bilateral Eye PERRL Neck: Full Range of Motion, Normal Inspection Respiratory: No Accessory Muscle Use, No Respiratory Distress Cardiovascular: Normal Peripheral Pulses, Tachycardia Gastrointestinal: Normal Bowel Sounds, Non Tender, Soft Extremity: Normal Capillary Refill, Normal Inspection Neurologic/Psychiatric: Alert, Oriented x3 Skin: Normal Color, Warm/Dry Progress/Results/Core Measures Suspected Sepsis Recent Fever Within 48 Hours: No Infection Criteria Present: None New/Unexplained Altered Menta: No Sepsis Screen: No Definite Risk SIRS Temperature: Pulse: 107 Respiratory Rate: 18 Laboratory Tests 02/19/21 16:09: White Blood Count 17.1H Blood Pressure 176 /92 Mean: 120 Laboratory Tests 02/19/21 16:09: Creatinine 0.81, Platelet Count 318, Total Bilirubin 0.7 Results/Orders Lab Results Laboratory Tests Test 02/19/21 16:09 Range/Units White Blood Count 17.1 H 4.3-11.0 10^3/uL Red Blood Count 4.52 4.30-5.52 10^6/uL Hemoglobin 12.9 L 13.3-17.7 g/dL Hematocrit 38 L 40-54 % Mean Corpuscular Volume 84 80-99 fL Mean Corpuscular Hemoglobin 29 25-34 pg Mean Corpuscular Hemoglobin Concent 34 32-36 g/dL Red Cell Distribution Width 13.2 10.0-14.5 % Platelet Count 318 130-400 10^3/uL Mean Platelet Volume 8.7 L 9.0-12.2 fL Immature Granulocyte % (Auto) 0 % Neutrophils (%) (Auto) 89 H 42-75 % Lymphocytes (%) (Auto) 8 L 12-44 % Monocytes (%) (Auto) 2 0-12 % Eosinophils (%) (Auto) 0 0-10 % Basophils (%) (Auto) 0 0-10 % Neutrophils # (Auto) 15.2 H 1.8-7.8 10^3/uL Lymphocytes # (Auto) 1.3 1.0-4.0 10^3/uL Monocytes # (Auto) 0.4 0.0-1.0 10^3/uL Eosinophils # (Auto) 0.0 0.0-0.3 10^3/uL Basophils # (Auto) 0.1 0.0-0.1 10^3/uL Immature Granulocyte # (Auto) 0.1 0.0-0.1 10^3/uL Neutrophils % (Manual) 93 % Lymphocytes % (Manual) 7 % Monocytes % (Manual) 0 % Eosinophils % (Manual) 0 % Basophils % (Manual) 0 % Band Neutrophils 0 % Blood Morphology Comment NORMAL Sodium Level 139 135-145 MMOL/L Potassium Level 3.7 3.6-5.0 MMOL/L Chloride Level 102 98-107 MMOL/L Carbon Dioxide Level 23 21-32 MMOL/L Anion Gap 14 5-14 MMOL/L Blood Urea Nitrogen 15 7-18 MG/DL Creatinine 0.81 0.60-1.30 MG/DL Estimat Glomerular Filtration Rate > 60 BUN/Creatinine Ratio 19 Glucose Level 181 H 70-105 MG/DL Calcium Level 9.8 8.5-10.1 MG/DL Corrected Calcium 9.6 8.5-10.1 MG/DL Total Bilirubin 0.7 0.1-1.0 MG/DL Aspartate Amino Transf (AST/SGOT) 18 5-34 U/L Alanine Aminotransferase (ALT/SGPT) 19 0-55 U/L Alkaline Phosphatase 92 40-136 U/L Total Protein 7.5 6.4-8.2 GM/DL Albumin 4.3 3.2-4.5 GM/DL Lipase 18 8-78 U/L Beta-Hydroxybutyrate (Chem panel) 0.60 H 0.00-0.27 MMOL/L My Orders Orders - NINOSKA LANE APRN Cbc With Automated Diff (02/19/21 15:38) Comprehensive Metabolic Panel (02/19/21 15:38) Beta Hydroxybutyrate (02/19/21 15:38) Ua Culture If Indicated (02/19/21 15:38) Drug Screen Stat (Urine) (02/19/21 15:38) Ed Iv/Invasive Line Start (02/19/21 15:38) Lactated Ringers (Lr 1000 Ml Iv Solution (02/19/21 15:45) Manual Differential (02/19/21 16:09) Ondansetron Injection (Zofran Injectio (02/19/21 16:30) Lipase (02/19/21 16:34) Lactated Ringers (Lr 1000 Ml Iv Solution (02/19/21 17:30) Ct Abdomen/Pelvis W (02/19/21 17:36) Promethazine Injection (Phenergan Injec (02/19/21 17:45) Haloperidol Injection (Haldol Injectio (02/19/21 17:45) Diphenhydramine Injection (Benadryl Inje (02/19/21 17:45) Iohexol Injection (Omnipaque 350 Mg/Ml 1 (02/19/21 18:00) Received Contrast (Hold Metformin- Contr (02/19/21 18:00) Ns (Ivpb) (Sodium Chloride 0.9% Ivpb Bag (02/19/21 18:00) Medications Given in ED Current Medications Medications Dose Ordered Sig/Luis Route Start Time Stop Time Status Last Admin Dose Admin Iohexol 100 ml ONCE ONCE IV 02/19/21 18:00 02/19/21 18:01 DC 02/19/21 18:18 100 ML Ondansetron HCl 8 mg ONCE ONCE IVP 02/19/21 16:30 02/19/21 16:31 DC 02/19/21 16:31 8 MG Sodium Chloride 100 ml ONCE ONCE IV 02/19/21 18:00 02/19/21 18:01 DC 02/19/21 18:18 100 ML Vital Signs/I&O 02/19/21 15:59 Pulse 107 Resp 18 B/P (MAP) 176/92 (120) Pulse Ox 99 Capillary Refill : Less Than 3 Seconds Blood Pressure Mean: 120 Departure Communication (Admissions) I did order Benadryl and IV Haldol for the ongoing abdominal pain and nausea as hyperemesis cannabinoid syndrome is within the differential. Gastroparesis is possible, appendicitis is possible but unlikely. Impression Primary Impression: Nausea & vomiting Disposition: 01 HOME, SELF-CARE Condition: Stable Departure-Patient Inst. Referrals: [facility] (PCP/Family) Primary Care Physician NINOSKA LANE APRN February 19, 2021 17:39
[2021-02-19] MEDS ORDERED: HALOPERIDOL 5 MG/ML (HALDOL) VIAL IV ONE ×2 (17:45→19:45)
[2021-02-19] MEDS ORDERED: diphenhydrAMINE 50 MG/ML INJ (BENADRYL) IVP ONE ×2 (17:45→19:45)
[2021-02-19] MEDS ORDERED: PROMETHAZINE INJ 25 MG/ML (PHENERGAN) AMP IVP ONE (17:45)
[2021-02-19] MEDS ORDERED: NS 100 ML (IVPB) BAG IV ONE (18:00)
[2021-02-19] MEDS ORDERED: HOLD METFORMIN - RECEIVED CONTRAST 20 ML VIAL IV SCH (18:00)
[2021-02-19] MEDS ORDERED: IOHEXOL 350 MG/ML 100 ML (OMNIPAQUE 350) VIAL IV ONE (18:00)
--- NOTE | 2021-02-19 18:46 | Diagnostic Imaging Report ---
CLINICAL INDICATION: Patient has been vomiting since this morning with periumbilical pain. Patient is diabetic. Patient has elevated WBCs. EXAM: Axial CT scan of the abdomen and pelvis performed with 100 mL of Omnipaque 350 IV contrast. Sagittal and coronal reformatted images are created. Auto Exposure Controls were utilized during the CT exam to meet ALARA standards for radiation dose reduction. COMPARISON: CT scan of the abdomen and pelvis without contrast dated 03/16/2020. FINDINGS: Visualized lung bases are clear. Bones show no significant abnormality. The liver, spleen, pancreas, and gallbladder is unremarkable. Adrenal glands are unremarkable. Both kidneys are unremarkable with no hydronephrosis or mass. The bladder is fluid-filled and unremarkable. There is minimal free fluid in the pelvis which is nonspecific. The visualized portions of the appendix is partially air filled and grossly unremarkable. Closely adjacent intra-abdominal structures limits evaluation of the appendix. There is no pericecal fat stranding seen. Previously patient's appendix was air-filled and is in the similar location as on today's exam. Again seen multiple mesenteric lymph nodes which are mildly prominent. There is no evidence of intestinal obstruction. The colon is predominantly decompressed. The wall thickening involving the colon may be related to incomplete distention. The extra-abdominal and extrapelvic soft tissue structures are unremarkable. IMPRESSION: 1: There is limited visualization of the appendix which does not appear significantly abnormal as visualized. There is nonspecific small amount of free fluid in the pelvis posteriorly which is abnormal. If there is continued concern for appendicitis, then follow-up CT scan of the abdomen and pelvis in 12 to 24 hours with rectal contrast and IV contrast may help better evaluate. 2: There is decompression of the colon with wall thickening. The wall thickening involving the colon may just be related to its decompressed state. 3: Remainder of this exam is unremarkable as visualized. Dictated by: Dictated on workstation # [id number]
[2021-02-19 19:31] LABS: BILIRUBIN,URINE NEGATIVE (NEGATIVE); CLARITY,URINE CLEAR; COLOR,URINE YELLOW; GLUCOSE, URINE (UA) 2+ (NEGATIVE); KETONES,URINE 2+ (NEGATIVE); LEUKOCYTE ESTERASE ,URINE NEGATIVE (NEGATIVE); NITRITE,URINE NEGATIVE (NEGATIVE); PROTEIN,URINE TRACE (NEGATIVE)
[2021-02-19 19:39] LABS: BACTERIA,URINE NEGATIVE /HPF
[2021-02-19 19:44] LABS: AMPHETAMINE SCREEN, URINE NEGATIVE (NEGATIVE); BARBITURATE SCREEN URINE NEGATIVE (NEGATIVE); BENZODIAZEPINES SCREEN URINE NEGATIVE (NEGATIVE); CANNABINOID SCREEN, URINE POSITIVE (NEGATIVE); COCAINE SCREEN URINE NEGATIVE (NEGATIVE); METHADONE STAT NEGATIVE (NEGATIVE); METHAMPHETAMINE SCREEN URINE S NEGATIVE (NEGATIVE); OPIATE SCREEN URINE NEGATIVE (NEGATIVE); OXYCODONE STAT NEGATIVE (NEGATIVE); PROPOXYPHENE STAT NEGATIVE (NEGATIVE); TRICYCLIC ANTIDEPRESSANTS SCRE NEGATIVE (NEGATIVE)
--- NOTE | 2021-02-19 19:58 | CONSULTATION REPORT ---
DATE OF SERVICE: ATTENDING CIAIO COUNTER MOLDER: [facility]. HISTORY OF PRESENT ILLNESS: The patient is a 30-year-old male who presented to the Emergency Department with periumbilical pain with associated nausea and vomiting. He has a history of a juvenile onset diabetes as well as a history of noncompliance and has been admitted in diabetic ketoacidosis multiple times. He states that the vomiting started early this morning and has persisted all day. He does not report any hematemesis, no coffee ground emesis. He does not report any change in bowel habits as well. He does have a leukocytosis of 17,000. CT scan of the abdomen did not show any overt inflammatory changes, only a small amount of free fluid in the pelvis. He also does have a significant history of THC use. 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 History of pneumonia. PAST SURGICAL HISTORY: None. ALLERGIES: PENICILLIN. MEDICATIONS: Aspartate insulin sliding scale, detemir insulin 10 units each day at bedtime, lisinopril 20 mg daily, Reglan 10 mg b.i.d., Protonix 40 mg daily. SOCIAL HISTORY: Positive for cigarette smoke as well as marijuana. Denies alcohol. FAMILY HISTORY: Father, heart disease. VITAL SIGNS: Blood pressure 176/92, pulse 107, respirations 18, pulse ox 99% on room air. REVIEW OF SYSTEMS: This is a well-nourished male, mildly guarded secondary to the nausea. He does not report any shortness of breath, no difficulty in breathing. No chest pain, palpitations, diaphoresis. Persistent nausea and vomiting starting this morning. No hematemesis, no coffee ground emesis. No red blood per rectum, no dark tarry stools. No fever, chills, no recent inadvertent weight loss. All other review of systems negative. PHYSICAL EXAMINATION: CHEST: Few scattered wheezes bilaterally. HEART: Regular, no murmurs. EXTREMITIES: No lower extremity edema, negative Homans sign. HEENT: No scleral icterus. NECK: No cervical lymphadenopathy. ABDOMEN: Soft with pain in the periumbilical region. There are no peritoneal signs. No hernias. SKIN: Warm, dry. LABORATORY DATA: WBC 17.1, hemoglobin 12.9, hematocrit 38, platelets 318, BUN 15, creatinine 0.81. Liver function enzymes are normal. ASSESSMENT AND PLAN: A 30-year-old male with nausea and vomiting with associated periumbilical pain. This may be secondary to his gastroparesis and medical noncompliance for his insulin-dependent diabetes. There is also in the differential cannabinoid hyperemesis syndrome. At this time, we will proceed with conservative management with IV hydration due to dehydration as well as antinausea medications and serial examinations as well as laboratory work. If his abdominal pain worsens or becomes more localized towards the right lower abdominal quadrant, we will then repeat CT scan of the abdomen and pelvis. Job ID: [id number] DocumentID: [id number] Dictated Date: 02/19/2021 19:38:24 Ground Source Heat Pump Technician Date: 02/19/2021 19:57:32 Dictated By: SUNDEEP MANZANO MD
[2021-02-19 20:25] VITALS: BP 140/82
[2021-02-19] MEDS ORDERED: KETOROLAC 15 MG/ML VIAL IVP PRN (21:30)
[2021-02-19] MEDS ORDERED: inSUlin ASPART (NovoLOG) 1 UNIT/0.01 ML (CHARGE PER UNIT) ONE (21:30)
[2021-02-19] MEDS: inSUlin ASPART (NovoLOG) 1 UNIT/0.01 ML (CHARGE PER UNIT) SC SCH (21:43)
[2021-02-19] MEDS: ONDANSETRON 4 MG/2 ML (SDV) Z0FRAN IVP PRN (21:43)
[2021-02-20 00:01] VITALS: BP 128/71
[2021-02-20 04:27] VITALS: BP 148/74
[2021-02-20] MEDS: PROMETHAZINE INJ 25 MG/ML (PHENERGAN) AMP IVP PRN ×2 (05:13→12:22)
[2021-02-20] MEDS: LACTATED RINGERS 1,000 ML IV SCH ×3 (05:36→16:29)
[2021-02-20 05:55] LABS: BASOPHILS % (AUTO) 0 % (0-10); EOSINOPHILS % (AUTO) 0 % (0-10); HEMATOCRIT 35 % (40-54); HEMOGLOBIN 11.6 g/dL (13.3-17.7); LYMPHOCYTES # (AUTO) 2.5 10^3/uL (1.0-4.0); LYMPHOCYTES % (AUTO) 19 % (12-44); MEAN CORPUSCULAR HEMOGLOBIN 28 pg (25-34); MEAN CORPUSCULAR HGB CONC 33 g/dL (32-36); MEAN CORPUSCULAR VOLUME 86 fL (80-99); MEAN PLATELET VOLUME 9.2 fL (9.0-12.2); MONOCYTES # (AUTO) 0.7 10^3/uL (0.0-1.0); MONOCYTES % (AUTO) 5 % (0-12); NEUTROPHILS # (AUTO) 9.9 10^3/uL (1.8-7.8); NEUTROPHILS % (AUTO) 75 % (42-75); PLATELET COUNT 304 10^3/uL (130-400); WHITE BLOOD COUNT 13.3 10^3/uL (4.3-11.0)
[2021-02-20 06:08] LABS: CHLORIDE 100 MMOL/L (98-107); POTASSIUM 3.4 MMOL/L (3.6-5.0); SODIUM 138 MMOL/L (135-145)
[2021-02-20 06:09] LABS: CALCIUM 9.3 MG/DL (8.5-10.1)
[2021-02-20 06:10] LABS: GLUCOSE 275 MG/DL (70-105)
[2021-02-20 06:11] LABS: CARBON DIOXIDE 14 MMOL/L (21-32)
[2021-02-20 06:14] LABS: GFR ESTIMATED > 60
[2021-02-20 06:15] LABS: BUN/CREATININE RATIO 16
[2021-02-20] MEDS: inSUlin ASPART (NovoLOG) 1 UNIT/0.01 ML (CHARGE PER UNIT) SC SCH (06:24)
[2021-02-20 06:57] LABS: ABG BASE EXCESS 0.7 MMOL/L (-2.5-2.5); ABG OXYGEN SATURATION 98 % (94-100); ABG PCO2 36 MMHG (35-45); ABG PH 7.45 (7.37-7.43); ABG PO2 98 MMHG (79-93); ABG TCO2 25.5 MMOL/L (21.0-31.0)
[2021-02-20 06:58] LABS: ALLENS TEST POS; INSPIRED O2 ROOM AIR; PATIENT TEMP 36.7; VENTILATOR NO
--- NOTE | 2021-02-20 07:41 | History & Physical-Hospitalist ---
History of Present Illness HPI/Chief Complaint CC: RLQ abdominal pain with dehydration HPI: This is a 30yoWM Type 1 DM who is hospitalized often for DKA who presented to the ER with N/V and RLQ abdominal pain. THC use regularly. Elevated wbc prompted Dr Heredia consult and CT revealed questionable appendix issue. Patient was found to have transitioned to DKA within a few hours so he was moved to ICU and placed on insulin drip. Gastroparesis noted. Source: patient, RN/MD, old records Date Seen 02/20/21 Time Seen by a Provider: 11:00 Attending Physician Lore Knight DO [facility] Referring Physician Date of Admission February 19, 2021 at 18:55 Home Medications & Allergies Home Medications Reviewed patient Home Medication Reconciliation performed by pharmacy medication reconciliations cleaning technician and/or nursing. Patients Allergies have been reviewed. Allergies Allergies Coded Allergies Penicillins (Verified Allergy, Unknown, 05/23/06) Patient Social History Marrital Status: single Employed/Student: unemployed Tobacco Use?: No Smoking Status: Never a Smoker Smokeless Tobacco Frequency: Never a User Use of E-Cig and/or Vaping dev: No Substance use?: No Alcohol Use?: No Pt stated abuse/neglect: No Immunizations Up To Date Influenza Vaccine Up-to-Date: Yes; Up-to-Date First/Initial COVID19 Vaccinat: 01/15/21 Second COVID19 Vaccination Pierre: 02/04/21 Tetanus Booster (TDap): Unknown Hepatitis A: No Hepatitis B: No TB Skin Test: None Date of Pneumonia Vaccine: Jul 16, 2016 Current Status Do you have an Advance Directi: No Communicates: Verbally Primary Language: Samoan Preferred Spoken Language: Samoan Is interpretation needed?: No Sensory deficits: Vision impairment Past Medical History PMHx: Type I Diabetes Anxiety Diabetic Retinopathy Thyrotoxicosis Pneumonia Cardiomyopathy Gastroparesis Review of Systems Constitutional: see HPI Gastrointestinal: abdominal pain (RLQ), loss of appetite, nausea, vomiting Physical Exam Physical Exam Vital Signs Vital Signs - First Documented 02/19/21 02/19/21 15:59 20:12 Temp 36.5 Pulse 107 Resp 18 B/P (MAP) 176/92 (120) Pulse Ox 99 O2 Delivery Room Air Capillary Refill : Less Than 3 Seconds Height, Weight, BMI Height: 5'11.00" Weight: 126lbs. 0.0oz. 57.284826xd; 17.22 BMI Method:Stated General Appearance: No Apparent Distress, Chronically ill, Thin Eyes: Right Eye Normal Inspection, Right Eye PERRL HEENT: PERRL/EOMI, Normal ENT Inspection, Pharynx Normal, Moist Mucous Membranes Neck: Full Range of Motion, Normal Inspection, Non Tender Respiratory: Chest Non Tender, Lungs Clear, Normal Breath Sounds, No Accessory Muscle Use, No Respiratory Distress Cardiovascular: Regular Rate, Rhythm, No Edema, No Gallop, No JVD, No Murmur, Normal Peripheral Pulses Gastrointestinal: Normal Bowel Sounds, No Organomegaly, No Pulsatile Mass, Non Tender, Soft Back: Normal Inspection, No CVA Tenderness, No Vertebral Tenderness Extremity: Normal Capillary Refill, Normal Inspection, Normal Range of Motion, Non Tender, No Calf Tenderness, No Pedal Edema Neurologic/Psychiatric: Alert, Oriented x3, No Motor/Sensory Deficits, Normal Mood/Affect Skin: Normal Color, Warm/Dry Lymphatic: No Adenopathy Results Results/Procedures Labs Laboratory Tests 02/19/21 16:09 02/20/21 05:20 02/20/21 09:04 02/20/21 10:52 02/20/21 15:30 Patient resulted labs reviewed. Assessment/Plan Admission Diagnosis Assessment: DKA RLQ abdominal pain Elevated wbc Gastroparesis THC use Plan: Insulin drip IVF Admission Status: Inpatient Order (span 2 midnights) Reason for Inpatient Admission: dka Diagnosis/Problems Diagnosis/Problems (1) Diabetic ketoacidosis Status: Resolved Resolution Date/Time: 01/14/21 @ 12:30 (2) Nausea & vomiting Status: Acute (3) Marijuana use Status: Acute LORE KNIGHT DO February 20, 2021 07:41
[2021-02-20 07:45] VITALS: BP 122/73
[2021-02-20] MEDS ORDERED: NS IV 1000 ML 1,000 ML IV SCH (07:45)
[2021-02-20] MEDS ORDERED: D5 1/2 NS 1000 ML IV SOLUTION 1,000 ML IV SCH ×2 (07:45→10:30)
[2021-02-20] MEDS ORDERED: 1/2 NS IV SOLUTION 1,000 ML IV SCH (07:45)
[2021-02-20 08:15] VITALS: BP 144/89
[2021-02-20] MEDS ORDERED: DEXTROSE 50% 50 ML (IMS) SYR ONE (09:08)
[2021-02-20 09:29] LABS: BUN/CREATININE RATIO 18; CALCIUM 8.8 MG/DL (8.5-10.1); CARBON DIOXIDE 23 MMOL/L (21-32); CHLORIDE 103 MMOL/L (98-107); CREATININE SERUM 0.66 MG/DL (0.60-1.30); GFR ESTIMATED > 60; GLUCOSE 65 MG/DL (70-105); POTASSIUM 3.5 MMOL/L (3.6-5.0); SODIUM 139 MMOL/L (135-145)
[2021-02-20] MEDS ORDERED: DEXTROSE 50% 50 ML (IMS) SYR IV ONE (09:30)
[2021-02-20] MEDS: POTASSIUM CL 10MEQ/50ML IVPB 50 ML IV SCH ×8 (09:31→15:13)
--- NOTE | 2021-02-20 11:06 | Progress Note ---
Subjective Date Seen by a Provider: February 20, 2021 Time Seen by a Provider: 10:00 Subjective/Events-last exam uncontrolled hypergycemia and DKA. tranferred to ICU. nausea improved and tolerating liquids well. no abd pain. Objective Exam Vital Signs Date Time Temp Pulse Resp B/P (MAP) Pulse Ox O2 Delivery O2 Flow Rate FiO2 02/20/21 10:00 112 22 132/73 (92) 99 Room Air 02/20/21 09:00 112 22 99 Room Air 02/20/21 08:31 113 02/20/21 08:20 98 Room Air 02/20/21 08:15 112 15 144/89 (107) 99 Room Air 02/20/21 07:45 37.7 108 20 122/73 (89) 98 Room Air 02/20/21 04:27 37.1 112 18 148/74 (98) 99 Room Air 02/20/21 00:01 36.8 108 18 128/71 (90) 97 Room Air 02/19/21 22:20 97 Room Air 02/19/21 20:25 36.5 132 18 140/82 (101) 99 Room Air 02/19/21 20:12 36.5 121 14 143/82 98 Room Air 02/19/21 15:59 107 18 176/92 (120) 99 I & O 02/20/21 07:00 Intake Total 3600 ml Output Total 800 ml Balance 2800 ml Capillary Refill : Less Than 3 Seconds General Appearance: No Apparent Distress HEENT: PERRL/EOMI Neck: Full Range of Motion Respiratory: Chest Non Tender, Lungs Clear Cardiovascular: Regular Rate, Rhythm Gastrointestinal: normal bowel sounds, non tender, soft Extremity: Normal Capillary Refill Neurologic/Psychiatric: Alert, Oriented x3 Skin: Normal Color Lymphatic: No Adenopathy Results Lab Laboratory Tests 02/19/21 16:09: White Blood Count 17.1H, Red Blood Count 4.52, Hemoglobin 12.9L, Hematocrit 38L, Mean Corpuscular Volume 84, Mean Corpuscular Hemoglobin 29, Mean Corpuscular Hemoglobin Concent 34, Red Cell Distribution Width 13.2, Platelet Count 318, Mean Platelet Volume 8.7L, Immature Granulocyte % (Auto) 0, Neutrophils (%) (Auto) 89H, Lymphocytes (%) (Auto) 8L, Monocytes (%) (Auto) 2, Eosinophils (%) (Auto) 0, Basophils (%) (Auto) 0, Neutrophils # (Auto) 15.2H, Lymphocytes # (Auto) 1.3, Monocytes # (Auto) 0.4, Eosinophils # (Auto) 0.0, Basophils # (Auto) 0.1, Immature Granulocyte # (Auto) 0.1, Neutrophils % (Manual) 93, Lymphocytes % (Manual) 7, Monocytes % (Manual) 0, Eosinophils % (Manual) 0, Basophils % (Manual) 0, Band Neutrophils 0, Blood Morphology Comment NORMAL, Sodium Level 139, Potassium Level 3.7, Chloride Level 102, Carbon Dioxide Level 23, Anion Gap 14, Blood Urea Nitrogen 15, Creatinine 0.81, Estimat Glomerular Filtration Rate > 60, BUN/Creatinine Ratio 19, Glucose Level 181H, Calcium Level 9.8, Corrected Calcium 9.6, Total Bilirubin 0.7, Aspartate Amino Transf (AST/SGOT) 18, Alanine Aminotransferase (ALT/SGPT) 19, Alkaline Phosphatase 92, Total Protein 7.5, Albumin 4.3, Lipase 18, Beta-Hydroxybutyrate (Chem panel) 0.60H 02/19/21 19:25: Urine Color YELLOW, Urine Clarity CLEAR, Urine pH 7.0, Urine Specific [place] 1.010L, Urine Protein TRACEH, Urine Glucose (UA) 2+H, Urine Ketones 2+H, Urine Nitrite NEGATIVE, Urine Bilirubin NEGATIVE, Urine Urobilinogen 0.2, Urine Leukocyte Esterase NEGATIVE, Urine RBC (Auto) 1+H, Urine RBC 2-5H, Urine WBC 2- 5, Urine Squamous Epithelial Cells NONE, Urine Renal Epithelial Cells NONE, Urine Crystals NONE, Urine Bacteria NEGATIVE, Urine Casts NONE, Urine Mucus NEGATIVE, Urine Culture Indicated NO, Urine Opiates Screen NEGATIVE, Urine Oxycodone Screen NEGATIVE, Urine Methadone Screen NEGATIVE, Urine Propoxyphene S creen NEGATIVE, Urine Barbiturates Screen NEGATIVE, Ur Tricyclic Antidepressants Screen NEGATIVE, Urine Phencyclidine Screen NEGATIVE, Urine Amphetamines Screen NEGATIVE, Urine Methamphetamines Screen NEGATIVE, Urine Benzodiazepines Screen NEGATIVE, Urine Cocaine Screen NEGATIVE, Urine Cannabinoids Screen POSITIVEH 02/19/21 20:46: Glucometer 256H 02/20/21 05:20: White Blood Count 13.3H, Red Blood Count 4.14L, Hemoglobin 11.6L, Hematocrit 35L , Mean Corpuscular Volume 86, Mean Corpuscular Hemoglobin 28, Mean Corpuscular Hemoglobin Concent 33, Red Cell Distribution Width 13.6, Platelet Count 304, Mean Platelet Volume 9.2, Immature Granulocyte % (Auto) 1, Neutrophils (%) (Auto) 75, Lymphocytes (%) (Auto) 19, Monocytes (%) (Auto) 5, Eosinophils (%) (Auto) 0, Basophils (%) (Auto) 0, Neutrophils # (Auto) 9.9H, Lymphocytes # (Auto) 2.5, Monocytes # (Auto) 0.7, Eosinophils # (Auto) 0.0, Basophils # (Auto) 0.0, Immature Granulocyte # (Auto) 0.1, Sodium Level 138, Potassium Level 3.4L, Chloride Level 100, Carbon Dioxide Level 14L, Anion Gap 24H, Blood Urea Nitrogen 13, Creatinine 0.80, Estimat Glomerular Filtration Rate > 60, BUN/Creatinine Ratio 16, Glucose Level 275H, Calcium Level 9.3, Beta-Hydroxybutyrate (Chem panel) 5.30H 02/20/21 06:50: Blood Gas Puncture Site LT RAD, Blood Gas Patient Temperature 36.7, Arterial Blood pH 7.45H, Arterial Blood Partial Pressure CO2 36, Arterial Blood Partial Pressure O2 98H, Arterial Blood HCO3 24, Arterial Blood Total CO2 25.5, Arterial Blood Oxygen Saturation 98, Arterial Blood Base Excess 0.7, Bony Test POS, Blood Gas Ventilator Setting NO, Blood Gas Inspired Oxygen ROOM AIR 02/20/21 07:52: Glucometer 98 02/20/21 09:03: Glucometer 62L 02/20/21 09:04: Sodium Level 139, Potassium Level 3.5L, Chloride Level 103, Carbon Dioxide Level 23, Anion Gap 13, Blood Urea Nitrogen 12, Creatinine 0.66, Estimat Glomerular Filtration Rate > 60, BUN/Creatinine Ratio 18, Glucose Level 65L, Calcium Level 8.8 02/20/21 10:27: Glucometer 286H 02/20/21 10:52: Assessment/Plan Assessment/Plan Assess & Plan/Chief Complaint IDDM, nausea/vomiting, hx gastroparesis, DKA. -continue clears for now until BS controlled then may advance to ADA diet. cont ileanalan. SUNDEEP MANZANO MD February 20, 2021 11:06
[2021-02-20 11:20] LABS: BUN/CREATININE RATIO 15; CALCIUM 7.9 MG/DL (8.5-10.1); CARBON DIOXIDE 18 MMOL/L (21-32); CHLORIDE 102 MMOL/L (98-107); CREATININE SERUM 0.72 MG/DL (0.60-1.30); GFR ESTIMATED > 60; GLUCOSE 299 MG/DL (70-105); POTASSIUM 3.9 MMOL/L (3.6-5.0); SODIUM 136 MMOL/L (135-145)
[2021-02-20] MEDS: ENOXAPARIN 30 MG/0.3 ML (LOVENOX) SYR SC SCH (12:22)
[2021-02-20 16:09] LABS: BUN/CREATININE RATIO 12; CALCIUM 8.2 MG/DL (8.5-10.1); CARBON DIOXIDE 24 MMOL/L (21-32); CHLORIDE 104 MMOL/L (98-107); CREATININE SERUM 0.67 MG/DL (0.60-1.30); GFR ESTIMATED > 60; GLUCOSE 160 MG/DL (70-105); POTASSIUM 3.6 MMOL/L (3.6-5.0); SODIUM 136 MMOL/L (135-145)
[2021-02-20] MEDS: ONDANSETRON 4 MG/2 ML (SDV) Z0FRAN IVP PRN (16:28)
[2021-02-20] MEDS ORDERED: inSUlin ASPART (NovoLOG) 1 UNIT/0.01 ML (CHARGE PER UNIT) SC SCH ×2 (16:30)
[2021-02-21 00:17] LABS: CHLORIDE 105 MMOL/L (98-107); POTASSIUM 3.7 MMOL/L (3.6-5.0); SODIUM 141 MMOL/L (135-145)
[2021-02-21 00:19] LABS: CALCIUM 8.4 MG/DL (8.5-10.1); GLUCOSE 70 MG/DL (70-105)
[2021-02-21 00:21] LABS: CARBON DIOXIDE 23 MMOL/L (21-32)
[2021-02-21 00:23] LABS: CREATININE SERUM 0.67 MG/DL (0.60-1.30); GFR ESTIMATED > 60
[2021-02-21 00:24] LABS: BUN/CREATININE RATIO 9
[2021-02-21] MEDS: PROMETHAZINE INJ 25 MG/ML (PHENERGAN) AMP IVP PRN ×2 (04:31→15:02)
[2021-02-21] MEDS: ONDANSETRON 4 MG/2 ML (SDV) Z0FRAN IVP PRN ×3 (04:53→18:00)
[2021-02-21] MEDS: LACTATED RINGERS 1,000 ML IV SCH ×3 (05:00→21:12)
[2021-02-21] MEDS: inSUlin ASPART (NovoLOG) 1 UNIT/0.01 ML (CHARGE PER UNIT) SC SCH ×4 (05:01→21:05)
[2021-02-21 07:01] LABS: BASOPHILS % (AUTO) 0 % (0-10); EOSINOPHILS # (AUTO) 0.1 10^3/uL (0.0-0.3); EOSINOPHILS % (AUTO) 1 % (0-10); HEMATOCRIT 32 % (40-54); HEMOGLOBIN 10.7 g/dL (13.3-17.7); LYMPHOCYTES # (AUTO) 2.3 10^3/uL (1.0-4.0); LYMPHOCYTES % (AUTO) 22 % (12-44); MEAN CORPUSCULAR HEMOGLOBIN 28 pg (25-34); MEAN CORPUSCULAR HGB CONC 33 g/dL (32-36); MEAN CORPUSCULAR VOLUME 85 fL (80-99); MEAN PLATELET VOLUME 9.8 fL (9.0-12.2); MONOCYTES # (AUTO) 0.7 10^3/uL (0.0-1.0); MONOCYTES % (AUTO) 7 % (0-12); NEUTROPHILS # (AUTO) 7.3 10^3/uL (1.8-7.8); NEUTROPHILS % (AUTO) 70 % (42-75); PLATELET COUNT 233 10^3/uL (130-400); WHITE BLOOD COUNT 10.5 10^3/uL (4.3-11.0)
[2021-02-21 07:05] LABS: ALBUMIN 3.5 GM/DL (3.2-4.5); CHLORIDE 104 MMOL/L (98-107); POTASSIUM 3.7 MMOL/L (3.6-5.0); SODIUM 141 MMOL/L (135-145)
[2021-02-21 07:06] LABS: CALCIUM 8.9 MG/DL (8.5-10.1)
--- NOTE | 2021-02-21 07:06 | Progress Note - Hospitalist ---
Subjective HPI/CC On Admission Date Seen by Provider: February 21, 2021 Time Seen by Provider: 11:00 CC: RLQ abdominal pain with dehydration HPI: This is a 30yoWM Type 1 DM who is hospitalized often for DKA who presented to the ER with N/V and RLQ abdominal pain. THC use regularly. Elevated wbc prompted Dr Heredia consult and CT revealed questionable appendix issue. Patient was found to have transitioned to DKA within a few hours so he was moved to ICU and placed on insulin drip. Gastroparesis noted. Subjective/Events-last exam Patient with N/V again Went into DKA this afternoon Insulin drip maintained Very challenging case Scop patch started Review of Systems General: Fatigue, Malaise Gastrointestinal: Nausea, Vomiting Objective Exam Vital Signs Vital Signs Date Time Temp Pulse Resp B/P (MAP) Pulse Ox O2 Delivery O2 Flow Rate FiO2 02/21/21 16:16 37.0 02/21/21 16:00 126 15 126/65 (85) 99 Room Air Capillary Refill : Less Than 3 Seconds General Appearance: No Apparent Distress, WD/WN, Chronically ill, Thin Respiratory: Lungs Clear Cardiovascular: Regular Rate, Rhythm Neurologic/Psychiatric: Alert, Oriented x3 Results/Procedures Lab Laboratory Tests 02/20/21 23:51 02/21/21 04:30 02/21/21 15:11 Patient resulted labs reviewed. Assessment/Plan Assessment and Plan Assess & Plan/Chief Complaint Assessment: DKA RLQ abdominal pain Elevated wbc Gastroparesis THC use Plan: Insulin drip IVF 02/21/21: Insulin drip Monitor closely Diagnosis/Problems Diagnosis/Problems (1) Diabetic ketoacidosis Status: Resolved Resolution Date/Time: 01/14/21 @ 12:30 (2) Nausea & vomiting Status: Acute (3) Marijuana use Status: Acute NORAH JOSÉ DO February 21, 2021 07:06
[2021-02-21 07:07] LABS: GLUCOSE 103 MG/DL (70-105)
[2021-02-21 07:09] LABS: CARBON DIOXIDE 22 MMOL/L (21-32)
[2021-02-21 07:10] LABS: BILIRUBIN,TOTAL 0.9 MG/DL (0.1-1.0)
[2021-02-21 07:11] LABS: ALKALINE PHOSPHATASE 69 U/L (40-136); CREATININE SERUM 0.65 MG/DL (0.60-1.30); GFR ESTIMATED > 60
[2021-02-21 07:12] LABS: BUN/CREATININE RATIO 8
[2021-02-21 07:14] LABS: ALANINE AMINOTRANSFERASE 19 U/L (0-55)
--- NOTE | 2021-02-21 10:11 | Progress Note ---
Subjective Date Seen by a Provider: February 21, 2021 Time Seen by a Provider: 10:00 Subjective/Events-last exam doing better. BS better controlled. tolerating clears. no N/V. Objective Exam Vital Signs Date Time Temp Pulse Resp B/P (MAP) Pulse Ox O2 Delivery O2 Flow Rate FiO2 02/21/21 09:00 105 20 175/113 (133) 100 Room Air 02/21/21 08:00 112 16 172/110 (130) 100 Room Air 02/21/21 07:52 98 Room Air 02/21/21 07:30 36.6 02/21/21 07:00 107 02/21/21 04:00 89 25 142/93 (109) 97 Room Air 02/21/21 00:46 98 02/21/21 00:00 93 11 131/89 (103) 100 Room Air 02/20/21 21:00 141/90 (107) 02/20/21 20:00 98 Room Air 02/20/21 20:00 108 22 153/107 (122) 100 Room Air 02/20/21 19:00 114 02/20/21 18:00 114 11 142/90 (107) 98 Room Air 02/20/21 17:27 36.6 02/20/21 17:00 120 26 123/79 (94) 97 Room Air 02/20/21 16:00 114 10 139/94 (109) 100 Room Air 02/20/21 15:09 36.6 Room Air 02/20/21 15:00 106 26 131/89 (103) 98 Room Air 02/20/21 14:00 106 25 132/88 (103) 98 Room Air 02/20/21 13:00 98 21 143/91 (108) 98 Room Air 02/20/21 12:44 116 02/20/21 12:00 118 30 177/105 (129) 99 Room Air 02/20/21 11:00 113 22 144/82 (102) 98 Room Air I & O 02/21/21 06:59 Intake Total 3940 ml Output Total 2225 ml Balance 1715 ml Capillary Refill : Less Than 3 Seconds General Appearance: No Apparent Distress HEENT: PERRL/EOMI Neck: Full Range of Motion Respiratory: Chest Non Tender, Lungs Clear Cardiovascular: Regular Rate, Rhythm Gastrointestinal: normal bowel sounds, non tender, soft Extremity: Normal Capillary Refill Neurologic/Psychiatric: Alert, Oriented x3 Skin: Normal Color Lymphatic: No Adenopathy Results Lab Laboratory Tests 02/20/21 10:27: Glucometer 286H 02/20/21 10:37: Glucometer 280H 02/20/21 10:52: Sodium Level 136, Potassium Level 3.9, Chloride Level 102, Carbon Dioxide Level 18L, Anion Gap 16H, Blood Urea Nitrogen 11, Creatinine 0.72, Estimat Glomerular Filtration Rate > 60, BUN/Creatinine Ratio 15, Glucose Level 299H, Calcium Level 7.9L 02/20/21 11:36: Glucometer 244H 02/20/21 12:26: Glucometer 172H 02/20/21 13:25: Glucometer 193H 02/20/21 14:40: Glucometer 176H 02/20/21 15:30: Sodium Level 136, Potassium Level 3.6, Chloride Level 104, Carbon Dioxide Level 24, Anion Gap 8, Blood Urea Nitrogen 8, Creatinine 0.67, Estimat Glomerular Filtration Rate > 60, BUN/Creatinine Ratio 12, Glucose Level 160H, Calcium Level 8.2L 02/20/21 15:50: Glucometer 139H 02/20/21 18:10: Glucometer 155H 02/20/21 20:39: Glucometer 67L 02/20/21 23:44: Glucometer 71 02/20/21 23:51: Sodium Level 141, Potassium Level 3.7, Chloride Level 105, Carbon Dioxide Level 23, Anion Gap 13, Blood Urea Nitrogen 6L, Creatinine 0.67, Estimat Glomerular Filtration Rate > 60, BUN/Creatinine Ratio 9, Glucose Level 70, Calcium Level 8.4L 02/21/21 04:30: Sodium Level 141, Potassium Level 3.7, Chloride Level 104, Carbon Dioxide Level 22, Anion Gap 15H, Blood Urea Nitrogen 5L, Creatinine 0.65, Estimat Glomerular Filtration Rate > 60, BUN/Creatinine Ratio 8, Glucose Level 103, Calcium Level 8.9, White Blood Count 10.5, Red Blood Count 3.78L, Hemoglobin 10.7L, Hematocrit 32L, Mean Corpuscular Volume 85, Mean Corpuscular Hemoglobin 28, Mean Corpuscular Hemoglobin Concent 33, Red Cell Distribution Width 13.7, Platelet Count 233, Mean Platelet Volume 9.8, Immature Granulocyte % (Auto) 0, Neutrophils (%) (Auto) 70, Lymphocytes (%) (Auto) 22, Monocytes (%) (Auto) 7, Eosinophils (%) (Auto) 1, Basophils (%) (Auto) 0, Neutrophils # (Auto) 7.3, Lymphocytes # (Auto) 2.3, Monocytes # (Auto) 0.7, Eosinophils # (Auto) 0.1, Basophils # (Auto) 0.0, Immature Granulocyte # (Auto) 0.0, Corrected Calcium 9.3, Total Bilirubin 0.9, Aspartate Amino Transf (AST/SGOT) 29, Alanine Aminotransferase (ALT/SGPT) 19, Alkaline Phosphatase 69, Total Protein 6.0L, Albumin 3.5, Beta-Hydroxybutyrate (Chem panel) 0.69H 02/21/21 04:37: Glucometer 108 Assessment/Plan Assessment/Plan Assess & Plan/Chief Complaint IDDM, nausea/vomiting, hx gastroparesis, DKA. advance to ADA diet. cont reglan. SUNDEEP MANZANO MD February 21, 2021 10:11
[2021-02-21] MEDS: ENOXAPARIN 30 MG/0.3 ML (LOVENOX) SYR SC SCH (11:13)
[2021-02-21] MEDS ORDERED: SCOPOLAMINE 1.5 MG (TRANSDERM-SCOP) PATCH TD ONE (11:30)
[2021-02-21 15:35] LABS: BUN/CREATININE RATIO 11; CALCIUM 8.1 MG/DL (8.5-10.1); CARBON DIOXIDE 16 MMOL/L (21-32); CHLORIDE 95 MMOL/L (98-107); CREATININE SERUM 0.84 MG/DL (0.60-1.30); GFR ESTIMATED > 60; GLUCOSE 318 MG/DL (70-105); POTASSIUM 3.5 MMOL/L (3.6-5.0); SODIUM 135 MMOL/L (135-145)
[2021-02-21] MEDS ORDERED: POTASSIUM CL 10MEQ/50ML IVPB 200 ML IV ONE (15:49)
[2021-02-21] MEDS ORDERED: 1/2 NS IV SOLUTION 1,000 ML IV ONE (15:49)
[2021-02-21] MEDS: 1/2 NS IV SOLUTION 1,000 ML IV SCH ×2 (16:21→20:17)
[2021-02-21] MEDS: POTASSIUM CL 10MEQ/50ML IVPB 50 ML IV SCH ×8 (16:21→22:18)
[2021-02-21] MEDS: D5 1/2 NS 1000 ML IV SOLUTION 1,000 ML IV SCH ×2 (17:15→21:12)
[2021-02-21 20:04] LABS: CHLORIDE 101 MMOL/L (98-107); POTASSIUM 3.4 MMOL/L (3.6-5.0); SODIUM 137 MMOL/L (135-145)
[2021-02-21 20:06] LABS: CALCIUM 8.1 MG/DL (8.5-10.1); GLUCOSE 166 MG/DL (70-105)
[2021-02-21 20:08] LABS: CARBON DIOXIDE 24 MMOL/L (21-32)
[2021-02-21 20:10] LABS: CREATININE SERUM 0.73 MG/DL (0.60-1.30); GFR ESTIMATED > 60
[2021-02-21 20:11] LABS: BUN/CREATININE RATIO 11
[2021-02-21] MEDS ORDERED: METOCLOPRAMIDE INJ 10 MG/2 ML (REGLAN) IVP PRN (20:45)
[2021-02-21 22:05] LABS: CHLORIDE 101 MMOL/L (98-107); POTASSIUM 3.3 MMOL/L (3.6-5.0); SODIUM 137 MMOL/L (135-145)
[2021-02-21 22:07] LABS: GLUCOSE 160 MG/DL (70-105)
[2021-02-21 22:08] LABS: CARBON DIOXIDE 23 MMOL/L (21-32)
[2021-02-21 22:11] LABS: CREATININE SERUM 0.71 MG/DL (0.60-1.30); GFR ESTIMATED > 60
[2021-02-21 22:12] LABS: BUN/CREATININE RATIO 10
[2021-02-22] MEDS: 1/2 NS IV SOLUTION 1,000 ML IV SCH ×3 (00:46→09:15)
[2021-02-22 02:10] LABS: BASOPHILS % (AUTO) 0 % (0-10); EOSINOPHILS % (AUTO) 0 % (0-10); HEMATOCRIT 31 % (40-54); HEMOGLOBIN 10.2 g/dL (13.3-17.7); LYMPHOCYTES # (AUTO) 2.6 10^3/uL (1.0-4.0); LYMPHOCYTES % (AUTO) 25 % (12-44); MEAN CORPUSCULAR HEMOGLOBIN 28 pg (25-34); MEAN CORPUSCULAR HGB CONC 33 g/dL (32-36); MEAN CORPUSCULAR VOLUME 84 fL (80-99); MONOCYTES # (AUTO) 0.9 10^3/uL (0.0-1.0); MONOCYTES % (AUTO) 9 % (0-12); NEUTROPHILS # (AUTO) 6.9 10^3/uL (1.8-7.8); NEUTROPHILS % (AUTO) 66 % (42-75); PLATELET COUNT 272 10^3/uL (130-400); WHITE BLOOD COUNT 10.5 10^3/uL (4.3-11.0)
[2021-02-22 02:24] LABS: CHLORIDE 104 MMOL/L (98-107); POTASSIUM 3.3 MMOL/L (3.6-5.0); SODIUM 138 MMOL/L (135-145)
[2021-02-22 02:26] LABS: GLUCOSE 136 MG/DL (70-105)
[2021-02-22 02:27] LABS: CARBON DIOXIDE 23 MMOL/L (21-32)
[2021-02-22 02:29] LABS: CREATININE SERUM 0.67 MG/DL (0.60-1.30); GFR ESTIMATED > 60
[2021-02-22 02:30] LABS: BUN/CREATININE RATIO 7
[2021-02-22] MEDS: POTASSIUM CL 10MEQ/50ML IVPB 50 ML IV SCH ×8 (04:04→12:29)
[2021-02-22] MEDS: LACTATED RINGERS 1,000 ML IV SCH (04:08)
--- NOTE | 2021-02-22 05:05 | Pulmonary Consultation ---
History of Present Illness History of Present Illness Date Seen by Provider: February 22, 2021 Time Seen by Provider: 05:00 Date of Admission Allergies and Home Medications Allergies Coded Allergies: Penicillins (Verified Allergy, Unknown, 05/23/06) Home Medications Acetaminophen 325 Mg Tablet, 650 MG PO Q6H PRN for PAIN-MILD (1-4), (Reported) TAKES 2 (325MG) TABLETS Insulin Aspart 100 Unit/1 Ml Susp, UNIT SQ TIDAC, (Reported) USES 2 UNITS PER EVERY CARB Insulin Determir 1,000 Units/10 Ml Soln, 5-10 UNITS SQ HS, (Reported) Lisinopril 20 Mg Tablet, 20 MG PO DAILY Prescribed by: DEANNE BLACNO on 01/14/21 0808 Metoclopramide HCl 10 Mg Tablet, 10 MG PO BID WITH MEALS, (Reported) Pantoprazole Sodium 40 Mg Tablet.dr, 40 MG PO DAILY, (Reported) Past Mulcmfo-Tsahgs-Ojgoqj Hx Patient Social History Alcohol Use: Denies Use Drug of Choice: HX MARIJUANA Smoking Status: Never a Smoker Type Used: Cigarettes Former Smoker, Quit: Sep 28, 2012 2nd Hand Smoke Exposure: No Recent Infectious Disease Expo: No Recent Hopitalizations: No Have you traveled recently?: No Alcohol Use?: No Immunizations Up To Date Tetanus Booster (TDap): Unknown PED Vaccines UTD: No Date of Pneumonia Vaccine: Jul 16, 2016 Date of Influenza Vaccine: Aug 11, 2020 Seasonal Allergies Seasonal Allergies: No Past Medical History Surgeries: No Respiratory: Yes Pneumonia Currently Using CPAP: No Currently Using BIPAP: No Cardiac: Yes (CARDIOMYOPATHY DX 2017) Cardiomyopathy Neurological: No Reproductive Disorders: No Sexually Transmitted Disease: No HIV/AIDS: No Genitourinary: No Gastrointestinal: Yes (GASTROPARESIS) Musculoskeletal: No Endocrine: Yes (DX AGE 11, [place] 2001; MULTIPLE ADMITS FOR DKA) Diabetes, Insulin dep Cancer: No Did You Recieve Any Treatments: No Psychosocial: No Integumentary: Yes (WOUNDS TO LOWER LEGS-- REQUIRED WOUND CARE CLINIC TREATMENT) Blood Disorders: No Adverse Reaction/Blood Tranf: No Family Medical History Cardiovascular disease 19 FATHER Hypertension 19 FATHER Heart Disease, Cancer, Hypertension Review of Systems Time Seen by Provider: 05:09 Sepsis Event Evaluation Height, Weight, BMI Height: 5'11.00" Weight: 126lbs. 0.0oz. 57.462284ts; 17.22 BMI Method:Stated Exam Exam Vital Signs Date Time Temp Pulse Resp B/P (MAP) Pulse Ox O2 Delivery O2 Flow Rate FiO2 02/22/21 03:35 37.2 Room Air 02/22/21 01:00 88 02/22/21 01:00 88 20 108/77 (87) 99 Room Air 02/22/21 00:00 99 21 111/74 (86) 98 Room Air 02/21/21 23:00 94 22 120/80 (93) 98 Room Air 02/21/21 22:00 99 22 121/72 (88) 98 Room Air 02/21/21 21:00 64 23 127/85 (99) 98 Room Air 02/21/21 20:26 37.0 02/21/21 20:00 115 16 157/100 (119) 99 Room Air 02/21/21 20:00 98 Room Air 02/21/21 19:00 106 02/21/21 19:00 106 18 127/88 (101) 99 Room Air 02/21/21 16:16 37.0 02/21/21 16:00 126 15 126/65 (85) 99 Room Air 02/21/21 14:00 115 31 144/99 (114) 100 Room Air 02/21/21 13:00 136 136/91 (106) 99 Room Air 02/21/21 12:32 127 02/21/21 12:00 114 19 165/103 (123) 99 Room Air 02/21/21 12:00 36.8 02/21/21 09:00 105 20 175/113 (133) 100 Room Air 02/21/21 08:00 112 16 172/110 (130) 100 Room Air 02/21/21 07:52 98 Room Air 02/21/21 07:30 36.6 02/21/21 07:00 107 I & O 02/22/21 07:00 Intake Total 1500 ml Output Total 5125 ml Balance -3625 ml Height & Weight Height: 5'11.00" Weight: 126lbs. 0.0oz. 57.550499sd; 17.22 BMI Method:Stated General Appearance: No Apparent Distress, WD/WN, Chronically ill, Thin HEENT: PERRL/EOMI Neck: Full Range of Motion Respiratory: Lungs Clear Cardiovascular: Regular Rate, Rhythm Capillary Refill: Less Than 3 Seconds Gastrointestinal: normal bowel sounds, non tender, soft Extremity: Normal Capillary Refill Neurologic/Psychiatric: Alert, Oriented x3 Skin: Normal Color Lymphatic: No Adenopathy Results Lab Laboratory Tests 02/20/21 05:20 02/20/21 09:04 02/20/21 10:52 02/20/21 15:30 02/20/21 23:51 02/21/21 04:30 02/21/21 15:11 02/21/21 19:32 02/21/21 21:45 02/22/21 01:35 Assessment/Plan Assessment/Plan DKA -DKA protocol -give 10units of Levemir now then d/c insulin gtt 2hrs after -Start SSI -Give D51/2 NS secondary to N/V. N/V -Amylase/Lipase - -IVF -Zofran and phenergan Gastroparesis -LUIS ANGEL Carbajal DO February 22, 2021 05:05
[2021-02-22 05:18] LABS: AMYLASE 30 U/L (25-125)
[2021-02-22 05:27] LABS: LIPASE 10 U/L (8-78)
[2021-02-22] MEDS: D5 1/2 NS 1000 ML IV SOLUTION 1,000 ML IV SCH ×2 (05:48→18:01)
[2021-02-22] MEDS: KCL 20 MEQ TAB (K-DUR) PO SCH (06:02)
[2021-02-22] MEDS: MAGNESIUM 1 GM/100 ML IVPB 100 ML IV SCH (06:02)
[2021-02-22] MEDS: inSUlin ASPART (NovoLOG) 1 UNIT/0.01 ML (CHARGE PER UNIT) SC SCH ×4 (06:02→21:08)
--- NOTE | 2021-02-22 07:26 | Diagnostic Imaging Report ---
INDICATION: Intensive care unit management. Single PA view of the chest is obtained with comparison made ti study of 01/13/2021 FINDINGS: Heart size and pulmonary vascularity are within normal limits, and the lungs are clear, bilaterally. IMPRESSION: Unremarkable chest. Dictated by: Dictated on workstation # [id number]
[2021-02-22] MEDS ORDERED: DEXTROSE 50% 50 ML (IMS) SYR IV ONE (08:00)
[2021-02-22 08:30] LABS: CHLORIDE 105 MMOL/L (98-107); POTASSIUM 3.3 MMOL/L (3.6-5.0); SODIUM 139 MMOL/L (135-145)
[2021-02-22 08:31] LABS: CALCIUM 8.3 MG/DL (8.5-10.1); GLUCOSE 67 MG/DL (70-105)
[2021-02-22 08:33] LABS: CARBON DIOXIDE 24 MMOL/L (21-32)
[2021-02-22 08:35] LABS: CREATININE SERUM 0.62 MG/DL (0.60-1.30); GFR ESTIMATED > 60; PHOSPHORUS 2.6 MG/DL (2.3-4.7)
[2021-02-22 08:36] LABS: BUN/CREATININE RATIO 8
[2021-02-22 08:38] LABS: MAGNESIUM 1.7 MG/DL (1.6-2.4)
[2021-02-22] MEDS: ONDANSETRON 4 MG/2 ML (SDV) Z0FRAN IVP PRN ×2 (09:02→22:07)
[2021-02-22] MEDS: PROMETHAZINE INJ 25 MG/ML (PHENERGAN) AMP IVP PRN (09:50)
[2021-02-22] MEDS: ENOXAPARIN 30 MG/0.3 ML (LOVENOX) SYR SC SCH (09:50)
[2021-02-22] MEDS ORDERED: LISI20TA26 PO (12:04)
[2021-02-22] MEDS ORDERED: PROCHLORPERAZINE 10 MG/2ML INJ (COMPAZINE) ONE (12:45)
[2021-02-22] MEDS ORDERED: PROCHLORPERAZINE 10 MG/2ML INJ (COMPAZINE) IV NR (13:00)
[2021-02-22 15:43] LABS: BASOPHILS % (AUTO) 0 % (0-10); EOSINOPHILS % (AUTO) 0 % (0-10); HEMATOCRIT 32 % (40-54); LYMPHOCYTES # (AUTO) 1.6 10^3/uL (1.0-4.0); LYMPHOCYTES % (AUTO) 18 % (12-44); MEAN CORPUSCULAR HEMOGLOBIN 29 pg (25-34); MEAN CORPUSCULAR HGB CONC 35 g/dL (32-36); MEAN CORPUSCULAR VOLUME 83 fL (80-99); MEAN PLATELET VOLUME 8.4 fL (9.0-12.2); MONOCYTES # (AUTO) 0.6 10^3/uL (0.0-1.0); MONOCYTES % (AUTO) 7 % (0-12); NEUTROPHILS # (AUTO) 6.7 10^3/uL (1.8-7.8); NEUTROPHILS % (AUTO) 76 % (42-75); PLATELET COUNT 240 10^3/uL (130-400); WHITE BLOOD COUNT 8.9 10^3/uL (4.3-11.0)
[2021-02-22 16:10] LABS: BUN/CREATININE RATIO 3; CALCIUM 8.2 MG/DL (8.5-10.1); CARBON DIOXIDE 29 MMOL/L (21-32); CHLORIDE 104 MMOL/L (98-107); CREATININE SERUM 0.61 MG/DL (0.60-1.30); GFR ESTIMATED > 60; GLUCOSE 128 MG/DL (70-105); POTASSIUM 3.7 MMOL/L (3.6-5.0); SODIUM 138 MMOL/L (135-145)
--- NOTE | 2021-02-22 17:35 | Progress Note ---
Subjective Subjective/Events-last exam Patient vomiting this AM. Denies any abdominal pain. Tolerating ambulation. Review of Systems General: Malaise Pulmonary: No Dyspnea, No Cough Cardiovascular: No: Chest Pain, Palpitations, Edema Gastrointestinal: Nausea, Vomiting; No: Abdominal Pain Genitourinary: No Dysuria, No Frequency, No Hematuria Musculoskeletal: No: neck pain, back pain Neurological: Weakness Objective Exam Last Set of Vital Signs Vital Signs Date Time Temp Pulse Resp B/P (MAP) Pulse Ox O2 Delivery O2 Flow Rate FiO2 02/22/21 16:00 93 155/103 (120) 97 Room Air 02/22/21 15:55 36.8 02/22/21 15:00 22 Capillary Refill : Less Than 3 Seconds I&O Intake and Output 02/22/21 00:00 Intake Total 1680 ml Output Total 4425 ml Balance -2745 ml Intake Oral 1680 ml Output Urine Total 4425 ml # Emeses 7 General: Alert, Oriented X3, Mild Distress Lungs: Clear to Auscultation, Normal Air Movement Heart: Regular Rate, No Murmurs Abdomen: Normal Bowel Sounds, Soft, No Tenderness, No Masses Extremities: No Edema, No Tenderness/Swelling Skin: No Rashes, No Breakdown Neuro: Normal Speech, Strength at 5/5 X4 Ext, Sensation Intact, Cranial Nerves 3-12 NL Psych/Mental Status: Mental Status NL, Mood NL Results/Procedures Lab Laboratory Tests 02/21/21 17:55: Glucometer 155H 02/21/21 18:50: Glucometer 162H 02/21/21 19:32: Sodium Level 137, Potassium Level 3.4L, Chloride Level 101, Carbon Dioxide Level 24, Anion Gap 12, Blood Urea Nitrogen 8, Creatinine 0.73, Estimat Glomerular Filtration Rate > 60, BUN/Creatinine Ratio 11, Glucose Level 166H, Calcium Level 8.1L 02/21/21 20:03: Glucometer 164H 02/21/21 21:13: Glucometer 152H 02/21/21 21:45: Sodium Level 137, Potassium Level 3.3L, Chloride Level 101, Carbon Dioxide Level 23, Anion Gap 13, Blood Urea Nitrogen 7, Creatinine 0.71, Estimat Glomerular Filtration Rate > 60, BUN/Creatinine Ratio 10, Glucose Level 160H, Calcium Level 8.0L 02/21/21 22:48: Glucometer 160H 02/22/21 00:23: Glucometer 157H 02/22/21 01:35: White Blood Count 10.5, Red Blood Count 3.65L, Hemoglobin 10.2L, Hematocrit 31L, Mean Corpuscular Volume 84, Mean Corpuscular Hemoglobin 28, Mean Corpuscular Hemoglobin Concent 33, Red Cell Distribution Width 13.2, Platelet Count 272, Mean Platelet Volume 9.0, Immature Granulocyte % (Auto) 0, Neutrophils (%) (Auto) 66, Lymphocytes (%) (Auto) 25, Monocytes (%) (Auto) 9, Eosinophils (%) (Auto) 0, Basophils (%) (Auto) 0, Neutrophils # (Auto) 6.9, Lymphocytes # (Auto) 2.6, Monocytes # (Auto) 0.9, Eosinophils # (Auto) 0.0, Basophils # (Auto) 0.0, Immature Granulocyte # (Auto) 0.0, Sodium Level 138, Potassium Level 3.3L, Chloride Level 104, Carbon Dioxide Level 23, Anion Gap 11, Blood Urea Nitrogen 5L, Creatinine 0.67, Estimat Glomerular Filtration Rate > 60, BUN/Creatinine Ratio 7, Glucose Level 136H, Calcium Level 8.0L, Amylase Level 30, Lipase 10 02/22/21 02:17: Glucometer 136H 02/22/21 03:15: Glucometer 113H 02/22/21 04:01: Glucometer 116H 02/22/21 05:54: Glucometer 107 02/22/21 07:38: Glucometer 69L 02/22/21 07:50: Sodium Level 139, Potassium Level 3.3L, Chloride Level 105, Carbon Dioxide Level 24, Anion Gap 10, Blood Urea Nitrogen 5L, Creatinine 0.62, Estimat Glomerular Filtration Rate > 60, BUN/Creatinine Ratio 8, Glucose Level 67L, Calcium Level 8.3L, Phosphorus Level 2.6, Magnesium Level 1.7 02/22/21 08:58: Glucometer 170H 02/22/21 09:53: Glucometer 144H 02/22/21 11:15: Glucometer 112H 02/22/21 12:33: Glucometer 96 02/22/21 13:43: Glucometer 88 02/22/21 14:39: Glucometer 108 02/22/21 15:37: White Blood Count 8.9, Red Blood Count 3.83L, Hemoglobin 11.0L, Hematocrit 32L, Mean Corpuscular Volume 83, Mean Corpuscular Hemoglobin 29, Mean Corpuscular H emoglobin Concent 35, Red Cell Distribution Width 13.1, Platelet Count 240, Mean Platelet Volume 8.4L, Immature Granulocyte % (Auto) 0, Neutrophils (%) (Auto) 76H, Lymphocytes (%) (Auto) 18, Monocytes (%) (Auto) 7, Eosinophils (%) (Auto) 0, Basophils (%) (Auto) 0, Neutrophils # (Auto) 6.7, Lymphocytes # (Auto) 1.6, Monocytes # (Auto) 0.6, Eosinophils # (Auto) 0.0, Basophils # (Auto) 0.0, Immature Granulocyte # (Auto) 0.0, Sodium Level 138, Potassium Level 3.7, Chlor breanna Level 104, Carbon Dioxide Level 29, Anion Gap 5, Blood Urea Nitrogen 2L, Creatinine 0.61, Estimat Glomerular Filtration Rate > 60, BUN/Creatinine Ratio 3, Glucose Level 128H, Calcium Level 8.2L 02/22/21 15:58: Glucometer 134H 02/22/21 16:54: Glucometer 140H Assessment/Plan Assessment/Plan (1) DKA (diabetic ketoacidoses) Status: Acute Assessment & Plan: 02/22: Continue with insulin gtts, will transition when tolerating PO diet Qualifiers: (2) Type 1 diabetes Status: Chronic Qualifiers: Qualified Codes: E10.10 - Type 1 diabetes mellitus with ketoacidosis without coma (3) Gastroparesis due to DM Status: Chronic (4) Nausea & vomiting Status: Acute Assessment & Plan: 02/22: Zofran and phenergen PRN (5) Abdominal pain (6) DVT prophylaxis Status: Acute Assessment & Plan: - Lovenox (7) Marijuana use Status: Chronic Assessment & Plan: - Discussed the need for cessation SHAMIKA FERMIN MD February 22, 2021 17:35
[2021-02-23 03:00] LABS: BASOPHILS % (AUTO) 0 % (0-10); EOSINOPHILS % (AUTO) 0 % (0-10); HEMATOCRIT 33 % (40-54); HEMOGLOBIN 11.2 g/dL (13.3-17.7); LYMPHOCYTES # (AUTO) 1.9 10^3/uL (1.0-4.0); LYMPHOCYTES % (AUTO) 23 % (12-44); MEAN CORPUSCULAR HEMOGLOBIN 28 pg (25-34); MEAN CORPUSCULAR HGB CONC 34 g/dL (32-36); MEAN CORPUSCULAR VOLUME 83 fL (80-99); MEAN PLATELET VOLUME 9.1 fL (9.0-12.2); MONOCYTES # (AUTO) 0.5 10^3/uL (0.0-1.0); MONOCYTES % (AUTO) 6 % (0-12); NEUTROPHILS # (AUTO) 5.6 10^3/uL (1.8-7.8); NEUTROPHILS % (AUTO) 70 % (42-75); PLATELET COUNT 252 10^3/uL (130-400); WHITE BLOOD COUNT 7.9 10^3/uL (4.3-11.0)
[2021-02-23 03:08] LABS: CHLORIDE 102 MMOL/L (98-107); POTASSIUM 3.8 MMOL/L (3.6-5.0); SODIUM 139 MMOL/L (135-145)
[2021-02-23 03:09] LABS: CALCIUM 8.6 MG/DL (8.5-10.1)
[2021-02-23 03:10] LABS: GLUCOSE 161 MG/DL (70-105)
[2021-02-23 03:11] LABS: CARBON DIOXIDE 24 MMOL/L (21-32)
[2021-02-23 03:14] LABS: CREATININE SERUM 0.68 MG/DL (0.60-1.30); GFR ESTIMATED > 60; PHOSPHORUS 3.4 MG/DL (2.3-4.7)
[2021-02-23 03:15] LABS: BUN/CREATININE RATIO 6
[2021-02-23 03:16] LABS: MAGNESIUM 1.8 MG/DL (1.6-2.4)
[2021-02-23] MEDS: D5 1/2 NS 1000 ML IV SOLUTION 1,000 ML IV SCH ×3 (03:33→15:57)
[2021-02-23] MEDS: POTASSIUM CL 10MEQ/50ML IVPB 50 ML IV SCH (03:33)
[2021-02-23] MEDS: MAGNESIUM 1 GM/100 ML IVPB 100 ML IV SCH (03:33)
[2021-02-23] MEDS: KCL 20 MEQ TAB (K-DUR) PO SCH (03:34)
--- NOTE | 2021-02-23 05:38 | Pulmonary Progress Note ---
Subjective Time Seen by a Provider: 05:34 Subjective/Events-last exam Pt is off DKA protocol Sepsis Event Evaluation Height, Weight, BMI Height: 5'11.00" Weight: 126lbs. 0.0oz. 57.545817qy; 17.22 BMI Method:Stated Exam Exam Vital Signs Date Time Temp Pulse Resp B/P (MAP) Pulse Ox O2 Delivery O2 Flow Rate FiO2 02/23/21 04:04 37.0 Room Air 02/23/21 04:00 84 17 120/72 (88) 99 Room Air 02/23/21 03:00 87 17 137/81 (99) 99 Room Air 02/23/21 02:00 81 20 142/93 (109) 98 Room Air 02/23/21 01:00 88 173/107 (129) 100 Room Air 02/23/21 01:00 88 02/23/21 00:00 92 159/98 (118) 100 Room Air 02/22/21 23:13 37.2 Room Air 02/22/21 23:00 90 160/95 (116) 100 Room Air 02/22/21 22:00 110 21 166/98 (120) 99 Room Air 02/22/21 21:00 87 14 133/87 (102) 99 Room Air 02/22/21 20:14 Room Air 02/22/21 20:00 92 22 145/96 (112) 99 Room Air 02/22/21 20:00 97 Room Air 02/22/21 19:30 37.4 02/22/21 19:00 96 02/22/21 19:00 96 24 137/92 (107) 99 Room Air 02/22/21 18:00 98 22 139/84 (102) 99 Room Air 02/22/21 17:00 107 38 162/107 (125) 99 Room Air 02/22/21 16:00 93 155/103 (120) 97 Room Air 02/22/21 15:55 36.8 02/22/21 15:00 92 22 163/102 (122) 99 Room Air 02/22/21 14:00 96 19 149/92 (111) 99 Room Air 02/22/21 13:00 88 14 165/106 (125) 99 Room Air 02/22/21 12:50 99 02/22/21 12:00 92 20 159/108 (125) 100 Room Air 02/22/21 11:24 36.9 02/22/21 11:00 106 20 173/103 (126) 100 Room Air 02/22/21 10:00 95 22 161/99 (119) 100 Room Air 02/22/21 09:00 106 15 174/104 (127) 100 Room Air 02/22/21 08:00 98 Room Air 02/22/21 08:00 112 16 172/110 (130) 100 Room Air 02/22/21 07:39 36.1 Room Air 02/22/21 07:30 36.0 02/22/21 07:00 108 21 152/120 (131) 99 Room Air 02/22/21 06:50 101 02/22/21 06:00 101 15 140/94 (109) 99 Room Air I & O 02/23/21 07:00 Intake Total 1770 ml Output Total 3465 ml Balance -1695 ml Height & Weight Height: 5'11.00" Weight: 126lbs. 0.0oz. 57.997752nc; 17.22 BMI Method:Stated General Appearance: No Apparent Distress, WD/WN, Chronically ill, Thin HEENT: PERRL/EOMI Neck: Full Range of Motion Respiratory: Lungs Clear Cardiovascular: Regular Rate, Rhythm Capillary Refill: Less Than 3 Seconds Gastrointestinal: normal bowel sounds, non tender, soft Extremity: Normal Capillary Refill Neurologic/Psychiatric: Alert, Oriented x3 Skin: Normal Color Lymphatic: No Adenopathy Results Lab Laboratory Tests 02/21/21 15:11 02/21/21 19:32 02/21/21 21:45 02/22/21 01:35 02/22/21 07:50 02/22/21 15:37 02/23/21 02:40 Assessment/Plan Assessment/Plan DKA -DKA protocol -give 10units of Levemir now then d/c insulin gtt 2hrs after -Start SSI -Give D51/2 NS secondary to N/V. N/V -Amylase/Lipase - -IVF -Zofran and phenergan Gastroparesis -Reglan Marijuanna use Will transfer to 4th floor with tele. I will sign off please call with any questions. LUIS ANGEL MONGE DO February 23, 2021 05:38
--- NOTE | 2021-02-23 05:38 | Diagnostic Imaging Report ---
EXAMINATION: Portable erect AP chest at 2:54 AM INDICATION: Diabetic ketoacidosis FINDINGS: The heart size is within normal limits and stable when compared to 02/22/2021. The lungs remain clear. There is still no sign of failure, pneumonia or pleural effusion. The mediastinum is not widened. The osseous structures are intact. IMPRESSION: Stable chest. There has been no adverse change since the prior exam. Dictated by: Dictated on workstation # [id number]
[2021-02-23] MEDS: inSUlin ASPART (NovoLOG) 1 UNIT/0.01 ML (CHARGE PER UNIT) SC SCH ×4 (05:50→20:05)
[2021-02-23] MEDS: ENOXAPARIN 30 MG/0.3 ML (LOVENOX) SYR SC SCH (10:27)
--- NOTE | 2021-02-23 12:20 | Progress Note ---
Subjective Subjective/Events-last exam Patient states that he is feeling better this AM. Last vomited last night when he tried to drink a glucerna. Ready to try and eat a diet this AM. Denies any pain or nausea at this time. Review of Systems Pulmonary: No Dyspnea, No Cough Cardiovascular: No: Chest Pain, Palpitations, Edema Gastrointestinal: No: Nausea, Vomiting, Abdominal Pain, Diarrhea, Constipation Neurological: Weakness; No: Incoordination, Confusion Objective Exam Last Set of Vital Signs Vital Signs Date Time Temp Pulse Resp B/P (MAP) Pulse Ox O2 Delivery O2 Flow Rate FiO2 02/23/21 10:00 93 20 142/92 (109) 100 Room Air 02/23/21 08:00 36.6 Capillary Refill : Less Than 3 Seconds I&O Intake and Output 02/23/21 00:00 Intake Total 940 ml Output Total 4425 ml Balance -3485 ml Intake Oral 540 ml IV Total 400 ml Output Urine Total 4250 ml Emesis 175 ml # Bowel Movements 1 # Emeses 4 General: Alert, Oriented X3, Cooperative, No Acute Distress Lungs: Clear to Auscultation, Normal Air Movement Heart: Regular Rate, No Murmurs Abdomen: Normal Bowel Sounds, Soft, No Tenderness, No Masses Extremities: No Edema, No Tenderness/Swelling Skin: No Rashes, No Breakdown Neuro: Normal Speech, Strength at 5/5 X4 Ext, Cranial Nerves 3-12 NL Psych/Mental Status: Mental Status NL, Mood NL Results/Procedures Lab Laboratory Tests 02/22/21 12:33: Glucometer 96 02/22/21 13:43: Glucometer 88 02/22/21 14:39: Glucometer 108 02/22/21 15:37: White Blood Count 8.9, Red Blood Count 3.83L, Hemoglobin 11.0L, Hematocrit 32L, Mean Corpuscular Volume 83, Mean Corpuscular Hemoglobin 29, Mean Corpuscular Hemoglobin Concent 35, Red Cell Distribution Width 13.1, Platelet Count 240, Mean Platelet Volume 8.4L, Immature Granulocyte % (Auto) 0, Neutrophils (%) (Auto) 76H, Lymphocytes (%) (Auto) 18, Monocytes (%) (Auto) 7, Eosinophils (%) (Auto) 0, Basophils (%) (Auto) 0, Neutrophils # (Auto) 6.7, Lymphocytes # (Auto) 1.6, Monocytes # (Auto) 0.6, Eosinophils # (Auto) 0.0, Basophils # (Auto) 0.0, Immature Granulocyte # (Auto) 0.0, Sodium Level 138, Potassium Level 3.7, Chloride Level 104, Carbon Dioxide Level 29, Anion Gap 5, Blood Urea Nitrogen 2L , Creatinine 0.61, Estimat Glomerular Filtration Rate > 60, BUN/Creatinine Ratio 3, Glucose Level 128H, Calcium Level 8.2L 02/22/21 15:58: Glucometer 134H 02/22/21 16:54: Glucometer 140H 02/22/21 19:15: Glucometer 169H 02/22/21 20:58: Glucometer 167H 02/23/21 00:06: Glucometer 220H 02/23/21 01:53: Glucometer 164H 02/23/21 02:40: White Blood Count 7.9, Red Blood Count 3.96L, Hemoglobin 11.2L, Hematocrit 33L, Mean Corpuscular Volume 83, Mean Corpuscular Hemoglobin 28, Mean Corpuscular Hemoglobin Concent 34, Red Cell Distribution Width 12.9, Platelet Count 252, Mean Platelet Volume 9.1, Immature Granulocyte % (Auto) 0, Neutrophils (%) (Auto) 70, Lymphocytes (%) (Auto) 23, Monocytes (%) (Auto) 6, Eosinophils (%) (Auto) 0, Basophils (%) (Auto) 0, Neutrophils # (Auto) 5.6, Lymphocytes # (Auto) 1.9, Monocytes # (Auto) 0.5, Eosinophils # (Auto) 0.0, Basophils # (Auto) 0.0, Immature Granulocyte # (Auto) 0.0, Sodium Level 139, Potassium Level 3.8, Chloride Level 102, Carbon Dioxide Level 24, Anion Gap 13, Blood Urea Nitrogen 4L, Creatinine 0.68, Estimat Glomerular Filtration Rate > 60, BUN/Creatinine Ratio 6, Glucose Level 161H, Calcium Level 8.6, Phosphorus Level 3.4, Magnesium Level 1.8 02/23/21 09:02: Glucometer 151H Assessment/Plan Assessment/Plan (1) DKA (diabetic ketoacidoses) Status: Acute Assessment & Plan: 02/22: Continue with insulin gtts, will transition when tolerating PO diet 02/23: Continue subcutaneous insulin and advance diet as tolerated Qualifiers: (2) Type 1 diabetes Status: Chronic Qualifiers: Qualified Codes: E10.10 - Type 1 diabetes mellitus with ketoacidosis without coma (3) Gastroparesis due to DM Status: Chronic Assessment & Plan: 02/23: Restarted reglan today (4) Nausea & vomiting Status: Acute Assessment & Plan: 02/22: Zofran and phenergen PRN (5) Abdominal pain Status: Acute Qualifiers: Qualified Codes: R10.13 - Epigastric pain (6) DVT prophylaxis Status: Acute Assessment & Plan: - Lovenox (7) Marijuana use Status: Chronic Assessment & Plan: - Discussed the need for cessation SHAMIKA FERMIN MD February 23, 2021 12:20
[2021-02-23] MEDS: METOCLOPRAMIDE 10 MG (REGLAN) TAB PO SCH (17:40)
[2021-02-24 04:35] LABS: BASOPHILS % (AUTO) 0 % (0-10); EOSINOPHILS # (AUTO) 0.2 10^3/uL (0.0-0.3); EOSINOPHILS % (AUTO) 2 % (0-10); HEMATOCRIT 33 % (40-54); HEMOGLOBIN 11.3 g/dL (13.3-17.7); LYMPHOCYTES # (AUTO) 2.2 10^3/uL (1.0-4.0); LYMPHOCYTES % (AUTO) 29 % (12-44); MEAN CORPUSCULAR HEMOGLOBIN 28 pg (25-34); MEAN CORPUSCULAR HGB CONC 34 g/dL (32-36); MEAN CORPUSCULAR VOLUME 83 fL (80-99); MEAN PLATELET VOLUME 8.9 fL (9.0-12.2); MONOCYTES # (AUTO) 0.6 10^3/uL (0.0-1.0); MONOCYTES % (AUTO) 7 % (0-12); NEUTROPHILS # (AUTO) 4.7 10^3/uL (1.8-7.8); NEUTROPHILS % (AUTO) 61 % (42-75); PLATELET COUNT 265 10^3/uL (130-400); WHITE BLOOD COUNT 7.6 10^3/uL (4.3-11.0)
[2021-02-24 04:48] LABS: CHLORIDE 105 MMOL/L (98-107); POTASSIUM 3.6 MMOL/L (3.6-5.0); SODIUM 139 MMOL/L (135-145)
[2021-02-24 04:49] LABS: CALCIUM 8.5 MG/DL (8.5-10.1)
[2021-02-24 04:50] LABS: GLUCOSE 105 MG/DL (70-105)
[2021-02-24 04:51] LABS: CARBON DIOXIDE 24 MMOL/L (21-32)
[2021-02-24 04:54] LABS: CREATININE SERUM 0.64 MG/DL (0.60-1.30); GFR ESTIMATED > 60; PHOSPHORUS 3.2 MG/DL (2.3-4.7)
[2021-02-24 04:55] LABS: BUN/CREATININE RATIO 11
[2021-02-24 04:56] LABS: MAGNESIUM 1.9 MG/DL (1.6-2.4)
[2021-02-24] MEDS: D5 1/2 NS 1000 ML IV SOLUTION 1,000 ML IV SCH (05:13)
[2021-02-24] MEDS: inSUlin ASPART (NovoLOG) 1 UNIT/0.01 ML (CHARGE PER UNIT) SC SCH ×2 (05:37→11:27)
[2021-02-24 07:47] VITALS: BP 168/90
[2021-02-24] MEDS: METOCLOPRAMIDE 10 MG (REGLAN) TAB PO SCH (08:52)
[2021-02-24] MEDS ORDERED: lisINopril 20 MG (PRINIVIL) TABLET PO SCH (09:00)
[2021-02-24] MEDS ORDERED: PANTOPRAZOLE 40 MG (PROTONIX) TAB PO SCH (09:00)
--- NOTE | 2021-02-24 11:03 | Discharge Summary ---
Diagnosis/Chief Complaint Date of Admission February 20, 2021 at 07:35 Date of Discharge 02/24/21 Admission Diagnosis Admission Diagnosis See Problem List Discharge Diagnosis See Below Problems/Diagnosis: (1) DKA (diabetic ketoacidoses) Assessment & Plan: 02/22: Continue with insulin gtts, will transition when tolerating PO diet 02/23: Continue subcutaneous insulin and advance diet as tolerated 02/24: Continue to follow with Dr Kevin outpatient, will get set up with Paloma Bazan at [facility], Continue outpatient insulin orders Qualifiers: Status: Acute (2) Type 1 diabetes Qualifiers: Qualified Codes: E10.10 - Type 1 diabetes mellitus with ketoacidosis without coma Status: Chronic (3) Gastroparesis due to DM Assessment & Plan: 02/23: Restarted reglan today Status: Chronic (4) Nausea & vomiting Assessment & Plan: 02/22: Zofran and phenergen PRN Status: Resolved Resolution Date/Time: 02/23/21 @ 11:14 (5) Abdominal pain Qualifiers: Qualified Codes: R10.13 - Epigastric pain Status: Resolved Resolution Date/Time: 02/23/21 @ 11:14 (6) DVT prophylaxis Assessment & Plan: - Lovenox Status: Acute (7) Marijuana use Assessment & Plan: - Discussed the need for cessation Status: Chronic Discharge Summary-Simple/Stand Consultations Discharge Physical Examination Allergies: Coded Allergies: Penicillins (Verified Allergy, Unknown, 05/23/06) Vitals & I&Os Vital Sign - Last 12Hours Date Time Temp Pulse Resp B/P (MAP) Pulse Ox O2 Delivery O2 Flow Rate FiO2 02/24/21 08:00 Room Air 02/24/21 07:47 36.4 102 19 168/90 (116) 100 Intake and Output 02/24/21 00:00 Intake Total 660 ml Balance 660 ml General Appearance: Alert, Oriented X3, Cooperative, No Acute Distress Respiratory: Clear to Auscultation, Normal Air Movement Cardiovascular: Regular Rate, No Murmurs Abdominal: Normal Bowel Sounds, Soft, No Tenderness, No Masses Extremities: No Edema, No Tenderness/Swelling Skin: No Rashes Neuro: Normal Speech, Strength at 5/5 X4 Ext, Sensation Intact, Cranial Nerves 3-12 NL Psych/Mental Status: Mental Status NL, Mood NL Hospital Course Was the Problem List Reviewed?: Yes See final discharge diagnosis. Discussion & Recommendations 30 yo M with known Type I DM with multiple admissions for DKA this year. Patient was having N/V at the time of admission and required insulin gtts and was NPO. He was then advanced to CLD and later tolerating regular diet. Patient was st arted back on home insulin orders and pain resolved by the time of discharge. Discharge Condition at discharge Stable Instructions to patient/family Please see electronic discharge instructions given to patient. Discharge Medications Reviewed and agree with Discharge Medication list on patient's Discharge Instruction sheet Copy Copies To 1: NELLY, SHAMIKA Duffy MD February 24, 2021 11:03
--- NOTE | 2021-02-24 11:13 | Discharge Summary ---
Discharge [facility] Reconcile Patient Problems Problems Reviewed?: Yes Discharge Medications New, Converted or Re-Newed RX: Transmitted to Pharmacy Continued Medications: Insulin Aspart (Novolog) 100 Unit/1 Ml Susp UNIT SQ TIDAC, EACH USES 2 UNITS PER EVERY CARB Insulin Determir (Levemir) 1,000 Units/10 Ml Soln 10 UNITS SQ HS, EA Lisinopril (Lisinopril) 20 Mg Tablet 20 MG PO DAILY, TAB Metoclopramide HCl (Metoclopramide HCl) 10 Mg Tablet 10 MG PO BID WITH MEALS, TAB Pantoprazole Sodium (Pantoprazole Sodium) 40 Mg Tablet.dr 40 MG PO DAILY, TAB Patient Instructions Goal/Follow Up Appt: F.u with Justino Albarran next week Will get patient set up with DM QC MANAGER at [facility] Paloma Bazan Activity & Diet Discharge Diet: Eat Small Frequent Meals, ADA Diet, Low Residue Copy Copies To 1: [facility] MD February 24, 2021 11:09
[2021-02-24] MEDS: ENOXAPARIN 30 MG/0.3 ML (LOVENOX) SYR SC SCH (11:26)
[2021-02-24 12:21] VITALS: BP 167/98
== END 2021-02-24 14:45 | disposition home or self-care (01) | DRG 638 ==
LOC: EDUNIT# 15:15 → ER 15:17 → 4TH 18:55 → OBSVTOIN 02-20 07:35 → ICU 02-20 08:15 → 4TH 02-23 10:55
PROVIDERS: ADMIT Internal Medicine; ATTEND Family Medicine
DX: E10.10 Type 1 diabetes mellitus with ketoacidosis without coma (principal); I42.9 Cardiomyopathy, unspecified; E10.43 Type 1 diabetes mellitus with diabetic autonomic (poly)neuropathy; E10.319 Type 1 diabetes mellitus with unspecified diabetic retinopathy without macular edema; K31.84 Gastroparesis; Z79.4 Long term (current) use of insulin; Z91.19 Patient's noncompliance with other medical treatment and regimen; E86.0 Dehydration; F12.90 Cannabis use, unspecified, uncomplicated; Z88.0 Allergy status to penicillin; Z87.891 Personal history of nicotine dependence
CPT/HCPCS: 36415; 36600; 71045; 74177; 80048; 80053; 80306; 81000; 82010; 82150; 82805; 82947; 83690; 83735; 84100; 85007; 85025; 85027; G0378

== ENCOUNTER 2021-04-20 12:20 | Inpatient (IN) | payer SELFPAY ==
[~2021-04-20] VITALS: Ht 180 cm; Wt 59.0 kg
--- NOTE | 2021-04-20 12:38 | ED General ---
General Chief Complaint: Glucose Problems Stated Complaint: DKA Source of Information: Patient Exam Limitations: No Limitations History of Present Illness Date Seen by Provider: Apr 20, 2021 Time Seen by Provider: 12:38 Initial Comments Patient is a 30-year-old male who presents to the ER with complaints of nausea and vomiting since yesterday morning. He is a type I diabetic and states that he believes he is in DKA. States that he gave himself 10 units of NovoLog this morning for blood glucose of 390 and give himself an additional 10 units approximately 30 minutes prior to arrival. States that he still feels nauseous, weak, and generalized mid abdominal pain. Describes as full sensation in his abdomen. He gave his Levemir 10 units around 2230 last night. Does have history of DKA, gastroparesis, and his last admit for DKA was in February. Denies fever, chills, cough, chest pain, shortness of breath. Allergies and Home Medications Allergies Coded Allergies: Penicillins (Verified Allergy, Unknown, 05/23/06) Home Medications Insulin Aspart 100 Unit/1 Ml Susp, UNIT SQ TIDAC, (Reported) USES 2 UNITS PER EVERY CARB Insulin Determir 1,000 Units/10 Ml Soln, 10 UNITS SQ HS, (Reported) Lisinopril 20 Mg Tablet, 20 MG PO DAILY, (Reported) Last Action: Continued Metoclopramide HCl 10 Mg Tablet, 10 MG PO BID WITH MEALS, (Reported) Pantoprazole Sodium 40 Mg Tablet.dr, 40 MG PO DAILY, (Reported) Patient Home Medication List Home Medication List Reviewed: Yes Review of Systems Review of Systems Constitutional: see HPI EENTM: no symptoms reported Respiratory: no symptoms reported Cardiovascular: no symptoms reported Gastrointestinal: no symptoms reported Genitourinary: no symptoms reported Musculoskeletal: no symptoms reported Skin: no symptoms reported Psychiatric/Neurological: No Symptoms Reported Hematologic/Lymphatic: No Symptoms Reported Immunological/Allergic: no symptoms reported Past Iyzyoxk-Rozpgd-Wltxid Hx Immunizations Up To Date Tetanus Booster (TDap): Unknown PED Vaccines UTD: No Seasonal Allergies Seasonal Allergies: No Past Medical History Surgeries: No Respiratory: Yes Pneumonia Currently Using CPAP: No Currently Using BIPAP: No Cardiac: Yes (CARDIOMYOPATHY DX 2017) Cardiomyopathy Neurological: No Reproductive Disorders: No Sexually Transmitted Disease: No HIV/AIDS: No Genitourinary: No Gastrointestinal: Yes (GASTROPARESIS) Musculoskeletal: No Endocrine: Yes (DX AGE 11, [place] 2001; MULTIPLE ADMITS FOR DKA) Diabetes, Insulin dep Cancer: No Did You Recieve Any Treatments: No Psychosocial: No Integumentary: Yes (WOUNDS TO LOWER LEGS-- REQUIRED WOUND CARE CLINIC TREATMENT) Blood Disorders: No Adverse Reaction/Blood Tranf: No Family Medical History Cardiovascular disease 19 FATHER Hypertension 19 FATHER Heart Disease, Cancer, Hypertension Physical Exam Vital Signs Vital Signs - First Documented 04/20/21 12:26 Temp 36.3 Pulse 131 Resp 24 B/P (MAP) 110/87 (95) Pulse Ox 99 Capillary Refill : Height, Weight, BMI Height: 5'11.00" Weight: 126lbs. 0.0oz. 57.934890py; 17.22 BMI Method:Stated General Appearance: No Apparent Distress, WD/WN, Chronically ill Eyes: Bilateral Eye Normal Inspection, Bilateral Eye PERRL, Bilateral Eye EOMI HEENT: PERRL/EOMI, TMs Normal, Pharynx Normal Neck: Normal Inspection, Supple Respiratory: Lungs Clear, Normal Breath Sounds, No Accessory Muscle Use Cardiovascular: Regular Rate, Rhythm, Normal Peripheral Pulses Gastrointestinal: Normal Bowel Sounds, Soft; No Distended, No Guarding; Other (Mid abdominal tenderness) Extremity: Normal Inspection, Normal Range of Motion Neurologic/Psychiatric: Alert, Oriented x3, No Motor/Sensory Deficits, Normal Mood/Affect Skin: Warm/Dry, Pallor Progress/Results/Core Measures Suspected Sepsis SIRS Temperature: Pulse: Respiratory Rate: Laboratory Tests 04/20/21 12:32: White Blood Count 14.0H Blood Pressure / Mean: Laboratory Tests 04/20/21 12:32: Creatinine 1.12, Platelet Count 447H, Total Bilirubin 0.7 Results/Orders Lab Results Laboratory Tests Test 04/20/21 12:32 04/20/21 13:29 04/20/21 13:30 04/20/21 13:57 Range/Units White Blood Count 14.0 H 4.3-11.0 10^3/uL Red Blood Count 4.79 4.30-5.52 10^6/uL Hemoglobin 13.2 L 13.3-17.7 g/dL Hematocrit 40 40-54 % Mean Corpuscular Volume 83 80-99 fL Mean Corpuscular Hemoglobin 28 25-34 pg Mean Corpuscular Hemoglobin Concent 33 32-36 g/dL Red Cell Distribution Width 13.5 10.0-14.5 % Platelet Count 447 H 130-400 10^3/uL Mean Platelet Volume 8.7 L 9.0-12.2 fL Immature Granulocyte % (Auto) 0 % Neutrophils (%) (Auto) 79 H 42-75 % Lymphocytes (%) (Auto) 16 12-44 % Monocytes (%) (Auto) 5 0-12 % Eosinophils (%) (Auto) 0 0-10 % Basophils (%) (Auto) 0 0-10 % Neutrophils # (Auto) 11.0 H 1.8-7.8 10^3/uL Lymphocytes # (Auto) 2.3 1.0-4.0 10^3/uL Monocytes # (Auto) 0.6 0.0-1.0 10^3/uL Eosinophils # (Auto) 0.0 0.0-0.3 10^3/uL Basophils # (Auto) 0.0 0.0-0.1 10^3/uL Immature Granulocyte # (Auto) 0.1 0.0-0.1 10^3/uL Neutrophils % (Manual) 77 % Lymphocytes % (Manual) 19 % Monocytes % (Manual) 4 % Blood Morphology Comment NORMAL Sodium Level 137 135-145 MMOL/L Potassium Level 3.5 L 3.6-5.0 MMOL/L Chloride Level 96 L 98-107 MMOL/L Carbon Dioxide Level 20 L 21-32 MMOL/L Anion Gap 21 H 5-14 MMOL/L Blood Urea Nitrogen 17 7-18 MG/DL Creatinine 1.12 0.60-1.30 MG/DL Estimat Glomerular Filtration Rate > 60 BUN/Creatinine Ratio 15 Glucose Level 260 H 70-105 MG/DL Glucometer 255 H 167 H 70-110 MG/DL Calcium Level 10.1 8.5-10.1 MG/DL Corrected Calcium 9.8 8.5-10.1 MG/DL Total Bilirubin 0.7 0.1-1.0 MG/DL Aspartate Amino Transf (AST/SGOT) 17 5-34 U/L Alanine Aminotransferase (ALT/SGPT) 18 0-55 U/L Alkaline Phosphatase 108 40-136 U/L Total Protein 7.9 6.4-8.2 GM/DL Albumin 4.4 3.2-4.5 GM/DL Lipase 46 8-78 U/L Beta-Hydroxybutyrate (Chem panel) 5.18 H 0.00-0.27 MMOL/L Urine Color YELLOW Urine Clarity CLEAR Urine pH 5.5 5-9 Urine Specific Wheeler 1.015 L 1.016-1.022 Urine Protein TRACE H NEGATIVE Urine Glucose (UA) 3+ H NEGATIVE Urine Ketones 2+ H NEGATIVE Urine Nitrite NEGATIVE NEGATIVE Urine Bilirubin 2+ H NEGATIVE Urine Urobilinogen 0.2 < = 1.0 MG/DL Urine Leukocyte Esterase NEGATIVE NEGATIVE Urine RBC (Auto) 2+ H NEGATIVE Urine RBC 10-25 H /HPF Urine WBC 0-2 /HPF Urine Crystals PRESENT H /LPF Urine Amorphous Sediment RARE TARAS URATES H /LPF Urine Bacteria TRACE /HPF Urine Casts NONE /LPF Urine Mucus SMALL H /LPF Urine Culture Indicated NO Arterial Blood pH 7.38 7.37-7.43 My Orders Orders - JON BEDOYA APRN Accucheck Stat ONCE (04/20/21 12:35) Iv/Invasive Line Insertion .IV start (04/20/21 12:35) Ns Iv 1000 Ml (Sodium Chloride 0.9%) (04/20/21 12:45) Accucheck Q1hr Q1HR (04/20/21 12:35) Cbc With Automated Diff (04/20/21 12:35) Comprehensive Metabolic Panel (04/20/21 12:35) Ua Culture If Indicated (04/20/21 12:35) Beta Hydroxybutyrate (04/20/21 12:35) Ondansetron Injection (Zofran Injectio (04/20/21 13:00) Manual Differential (04/20/21 12:32) Ondansetron Injection (Zofran Injectio (04/20/21 12:47) Lipase (04/20/21 12:52) Potassium Cl 10meq/50ml Ivpb (Kcl 10 Meq (04/20/21 13:15) Abg Ph (04/20/21 13:15) Ns Iv 1000 Ml (Sodium Chloride 0.9%) (04/20/21 13:30) D5 1/2 Ns W/Kcl 20 Meq/L (Dextrose 5%/0. (04/20/21 13:45) Insulin Regular Drip (Myxredlin 100 Unit (04/20/21 14:45) Medications Given in ED Current Medications Medications Dose Ordered Sig/Luis Route Start Time Stop Time Status Last Admin Dose Admin Ondansetron HCl 4 mg ONCE ONCE IVP 04/20/21 13:00 04/20/21 13:01 DC 04/20/21 12:48 4 MG Potassium Chloride 50 ml @ 50 mls/hr ONCE ONCE IV 04/20/21 13:15 04/20/21 14:14 DC 04/20/21 13:33 50 MLS/HR Sodium Chloride 1,000 ml @ 999 mls/hr Q1H ONCE IV 04/20/21 13:30 04/20/21 14:30 DC 04/20/21 13:33 999 MLS/HR Vital Signs/I&O 04/20/21 12:26 Temp 36.3 Pulse 131 Resp 24 B/P (MAP) 110/87 (95) Pulse Ox 99 Capillary Refill : Progress Note : Progress Note Patient examined, orders placed for CBC, CMP, UA, beta hydroxybutyrate. Will give one liter normal saline bolus and Zofran for nausea and re-evaluate. Reports feeling a little better after fluids and Zofran. Labs reviewed. Elevated beta hydroxybutyrate, 2+ ketones in urine, AG-21. K- 3.5.Orders given for second liter NS and KCL 10meq x1. BG-trending down. Will place on D5 0.45% NS with 20 KCL and add insulin gtt to maintain BG and allow AG to close. Discussed case with Dr. Orlando, agrees with admit to ICU for DKA. Will repeat BMP q4 hours. Reviewed POC with patient and he is agreeable with plan. Departure Communication (Admissions) Time/Spoke to Admitting Phy: 15:[address] Orlando. Accepted admission to ICU. Impression Primary Impression: DKA (diabetic ketoacidoses) Disposition: ADMITTED INPATIENT Condition: Stable Admissions Decision to Admit Reason: Admit from ER (General) Decision to Admit/Date: Apr 20, 2021 Time/Decision to Admit Time: 14:38 Departure-Patient Inst. Referrals: [facility] (PCP/Family) Primary Care Physician JON BEDOYA APRN Apr 20, 2021 12:38
[2021-04-20] MEDS ORDERED: NS IV 1000 ML 1,000 ML IV SCH ×2 (12:45→17:30)
[2021-04-20 12:46] LABS: BASOPHILS % (AUTO) 0 % (0-10); EOSINOPHILS % (AUTO) 0 % (0-10); HEMATOCRIT 40 % (40-54); HEMOGLOBIN 13.2 g/dL (13.3-17.7); LYMPHOCYTES # (AUTO) 2.3 10^3/uL (1.0-4.0); LYMPHOCYTES % (AUTO) 16 % (12-44); MEAN CORPUSCULAR HEMOGLOBIN 28 pg (25-34); MEAN CORPUSCULAR HGB CONC 33 g/dL (32-36); MEAN CORPUSCULAR VOLUME 83 fL (80-99); MEAN PLATELET VOLUME 8.7 fL (9.0-12.2); MONOCYTES # (AUTO) 0.6 10^3/uL (0.0-1.0); MONOCYTES % (AUTO) 5 % (0-12); NEUTROPHILS % (AUTO) 79 % (42-75); PLATELET COUNT 447 10^3/uL (130-400)
[2021-04-20] MEDS ORDERED: ONDANSETRON 4 MG/2 ML (SDV) Z0FRAN ONE (12:47)
[2021-04-20] MEDS ORDERED: ONDANSETRON 4 MG/2 ML (SDV) Z0FRAN IVP ONE ×2 (13:00→16:30)
[2021-04-20 13:05] LABS: ALBUMIN 4.4 GM/DL (3.2-4.5); CHLORIDE 96 MMOL/L (98-107); POTASSIUM 3.5 MMOL/L (3.6-5.0)
[2021-04-20 13:06] LABS: SODIUM 137 MMOL/L (135-145)
[2021-04-20 13:07] LABS: CALCIUM 10.1 MG/DL (8.5-10.1)
[2021-04-20 13:08] LABS: GLUCOSE 260 MG/DL (70-105); TOTAL PROTEIN 7.9 GM/DL (6.4-8.2)
[2021-04-20 13:09] LABS: CARBON DIOXIDE 20 MMOL/L (21-32)
[2021-04-20 13:10] LABS: BILIRUBIN,TOTAL 0.7 MG/DL (0.1-1.0)
[2021-04-20 13:11] LABS: ALKALINE PHOSPHATASE 108 U/L (40-136)
[2021-04-20 13:12] LABS: CREATININE SERUM 1.12 MG/DL (0.60-1.30); GFR ESTIMATED > 60
[2021-04-20 13:13] LABS: BUN/CREATININE RATIO 15
[2021-04-20 13:14] LABS: ALANINE AMINOTRANSFERASE 18 U/L (0-55)
[2021-04-20] MEDS ORDERED: POTASSIUM CL 10MEQ/50ML IVPB 50 ML IV ONE ×2 (13:15→17:14)
[2021-04-20 13:27] LABS: LYMPHOCYTES % (MANUAL) 19 %; MONOCYTES % (MANUAL) 4 %; NEUTROPHILS % (MANUAL) 77 %; RBC MORPH NORMAL
[2021-04-20] MEDS ORDERED: NS IV 1000 ML 1,000 ML IV ONE (13:30)
[2021-04-20 13:36] LABS: CLARITY,URINE CLEAR; COLOR,URINE YELLOW; GLUCOSE, URINE (UA) 3+ (NEGATIVE); KETONES,URINE 2+ (NEGATIVE); LEUKOCYTE ESTERASE ,URINE NEGATIVE (NEGATIVE); NITRITE,URINE NEGATIVE (NEGATIVE); PH,URINE 5.5 (5-9); PROTEIN,URINE TRACE (NEGATIVE)
[2021-04-20] MEDS ORDERED: D5 1/2 NS W/KCL 20 MEQ/L 1,000 ML IV SCH ×2 (13:45→17:15)
[2021-04-20 14:20] LABS: BILIRUBIN,URINE 2+ (NEGATIVE)
[2021-04-20 14:21] LABS: AMORPHOUS SEDIMENT,UR RARE AMOR URATES /LPF; BACTERIA,URINE TRACE /HPF; WBC,URINE 0-2 /HPF
[2021-04-20 17:00] VITALS: BP 128/85
[2021-04-20 17:03] LABS: CHLORIDE 105 MMOL/L (98-107); POTASSIUM 3.7 MMOL/L (3.6-5.0); SODIUM 139 MMOL/L (135-145)
[2021-04-20 17:05] LABS: CALCIUM 8.6 MG/DL (8.5-10.1); GLUCOSE 97 MG/DL (70-105)
[2021-04-20 17:07] LABS: CARBON DIOXIDE 21 MMOL/L (21-32)
[2021-04-20 17:09] LABS: CREATININE SERUM 0.76 MG/DL (0.60-1.30); GFR ESTIMATED > 60
[2021-04-20 17:10] LABS: BUN/CREATININE RATIO 18
[2021-04-20] MEDS ORDERED: PROMETHAZINE INJ 25 MG/ML (PHENERGAN) AMP IV PRN (17:15)
[2021-04-20] MEDS: PROMETHAZINE INJ 25 MG/ML (PHENERGAN) AMP IVP PRN (17:26)
[2021-04-20 17:28] LABS: HEMATOCRIT 33 % (40-54); HEMOGLOBIN 11.1 g/dL (13.3-17.7); MEAN CORPUSCULAR HEMOGLOBIN 28 pg (25-34); MEAN CORPUSCULAR HGB CONC 33 g/dL (32-36); MEAN CORPUSCULAR VOLUME 84 fL (80-99); PLATELET COUNT 356 10^3/uL (130-400)
[2021-04-20] MEDS ORDERED: inSUlin REGULAR 100 UNITS/100 ML DRIP (Premix) IV SCH (17:30)
[2021-04-20] MEDS: POTASSIUM CL 10MEQ/50ML IVPB 50 ML IV SCH ×7 (18:23→23:35)
[2021-04-20] MEDS: 1/2 NS IV SOLUTION 1,000 ML IV SCH ×2 (18:24→21:24)
[2021-04-20] MEDS: METOCLOPRAMIDE INJ 10 MG/2 ML (REGLAN) IVP PRN (18:49)
[2021-04-20] MEDS: PANTOPRAZOLE 40 MG (PROTONIX) VIAL IV SCH (18:49)
[2021-04-20] MEDS: D5 1/2 NS 1000 ML IV SOLUTION 1,000 ML IV SCH ×2 (19:26→23:35)
[2021-04-20 20:03] LABS: BUN/CREATININE RATIO 14; CALCIUM 8.8 MG/DL (8.5-10.1); CARBON DIOXIDE 17 MMOL/L (21-32); CHLORIDE 105 MMOL/L (98-107); CREATININE SERUM 0.83 MG/DL (0.60-1.30); GFR ESTIMATED > 60; GLUCOSE 229 MG/DL (70-105); SODIUM 136 MMOL/L (135-145)
[2021-04-20] MEDS ORDERED: hydrALAZINE (APESOLINE) 20 MG/ML VIAL IV PRN (20:45)
[2021-04-20] MEDS: ONDANSETRON 4 MG/2 ML (SDV) Z0FRAN IVP PRN (21:27)
--- NOTE | 2021-04-20 22:16 | History & Physical ---
HPI History of Present Illness: 30 yo M with known type I DM that presents with abdominal pain and N/V. He states that he started feeling bad last night and woke up and his blood sugars were in the 300s. States that he had the abdominal pain and nausea worse this AM. He took a bolus of insulin prior to arriving at the ER. Has not had anything to eat in 48 hrs. Last admission for DKA was about 1 month ago. Source: patient Exam Limitations: no limitations Date seen by provider: Apr 20, 2021 Time Seen by Provider: 19:00 Attending Physician Katie Orlando MD PCP Center[facility], Consult Date of Admission Apr 20, 2021 at 14:47 Home Medications Home Medications Reviewed patient Home Medication Reconciliation performed by pharmacy medication reconciliations archives technician and/or nursing. Patients Allergies have been reviewed. Allergies Coded Allergies: Penicillins (Verified Allergy, Unknown, 05/23/06) MQW-Zpgmft-Igbaoe Hx Patient Social History Drug of Choice: HX MARIJUANA Smoking Status: Never a Smoker 2nd Hand Smoke Exposure: No Recent Hopitalizations: No Alcohol Use?: No Have you traveled recently?: No Immunizations Up To Date Tetanus Booster (TDap): Unknown Date of Pneumonia Vaccine: Jul 16, 2016 Date of Influenza Vaccine: Aug 11, 2020 Past Medical History PMHx: Type I Diabetes Anxiety Diabetic Retinopathy Thyrotoxicosis Pneumonia Cardiomyopathy Gastroparesis Family Medical History Significant Family History: Heart Disease, Cancer, Hypertension Family History: Cardiovascular disease 19 FATHER Hypertension 19 FATHER Review of Systems (CHC) Constitutional: chills; No fever; malaise, weakness EENTM: no symptoms reported; No mouth pain, No nose congestion, No nose pain Respiratory: no symptoms reported; No cough, No dyspnea on exertion, No short of breath Cardiovascular: no symptoms reported; No chest pain, No edema, No palpitations Gastrointestinal: abdominal pain; No constipation, No diarrhea; loss of appe tite, nausea, vomiting Genitourinary: No dysuria; frequency; No hematuria Musculoskeletal: no symptoms reported; No back pain, No joint pain, No muscle pain Skin: no symptoms reported; No lesions, No rash Psychiatric/Neurological: Anxiety, Weakness Reviewed Test Results Reviewed Test Results Lab Laboratory Tests Test 04/20/21 12:32 04/20/21 13:29 04/20/21 13:30 04/20/21 13:57 Range/Units White Blood Count 14.0 H 4.3-11.0 10^3/uL Red Blood Count 4.79 4.30-5.52 10^6/uL Hemoglobin 13.2 L 13.3-17.7 g/dL Hematocrit 40 40-54 % Mean Corpuscular Volume 83 80-99 fL Mean Corpuscular Hemoglobin 28 25-34 pg Mean Corpuscular Hemoglobin Concent 33 32-36 g/dL Red Cell Distribution Width 13.5 10.0-14.5 % Platelet Count 447 H 130-400 10^3/uL Mean Platelet Volume 8.7 L 9.0-12.2 fL Immature Granulocyte % (Auto) 0 % Neutrophils (%) (Auto) 79 H 42-75 % Lymphocytes (%) (Auto) 16 12-44 % Monocytes (%) (Auto) 5 0-12 % Eosinophils (%) (Auto) 0 0-10 % Basophils (%) (Auto) 0 0-10 % Neutrophils # (Auto) 11.0 H 1.8-7.8 10^3/uL Lymphocytes # (Auto) 2.3 1.0-4.0 10^3/uL Monocytes # (Auto) 0.6 0.0-1.0 10^3/uL Eosinophils # (Auto) 0.0 0.0-0.3 10^3/uL Basophils # (Auto) 0.0 0.0-0.1 10^3/uL Immature Granulocyte # (Auto) 0.1 0.0-0.1 10^3/uL Neutrophils % (Manual) 77 % Lymphocytes % (Manual) 19 % Monocytes % (Manual) 4 % Blood Morphology Comment NORMAL Sodium Level 137 135-145 MMOL/L Potassium Level 3.5 L 3.6-5.0 MMOL/L Chloride Level 96 L 98-107 MMOL/L Carbon Dioxide Level 20 L 21-32 MMOL/L Anion Gap 21 H 5-14 MMOL/L Blood Urea Nitrogen 17 7-18 MG/DL Creatinine 1.12 0.60-1.30 MG/DL Estimat Glomerular Filtration Rate > 60 BUN/Creatinine Ratio 15 Glucose Level 260 H 70-105 MG/DL Glucometer 255 H 167 H 70-110 MG/DL Calcium Level 10.1 8.5-10.1 MG/DL Corrected Calcium 9.8 8.5-10.1 MG/DL Total Bilirubin 0.7 0.1-1.0 MG/DL Aspartate Amino Transf (AST/SGOT) 17 5-34 U/L Alanine Aminotransferase (ALT/SGPT) 18 0-55 U/L Alkaline Phosphatase 108 40-136 U/L Total Protein 7.9 6.4-8.2 GM/DL Albumin 4.4 3.2-4.5 GM/DL Lipase 46 8-78 U/L Beta-Hydroxybutyrate (Chem panel) 5.18 H 0.00-0.27 MMOL/L Urine Color YELLOW Urine Clarity CLEAR Urine pH 5.5 5-9 Urine Specific Bentley 1.015 L 1.016-1.022 Urine Protein TRACE H NEGATIVE Urine Glucose (UA) 3+ H NEGATIVE Urine Ketones 2+ H NEGATIVE Urine Nitrite NEGATIVE NEGATIVE Urine Bilirubin 2+ H NEGATIVE Urine Urobilinogen 0.2 < = 1.0 MG/DL Urine Leukocyte Esterase NEGATIVE NEGATIVE Urine RBC (Auto) 2+ H NEGATIVE Urine RBC 10-25 H /HPF Urine WBC 0-2 /HPF Urine Crystals PRESENT H /LPF Urine Amorphous Sediment RARE TARAS URATES H /LPF Urine Bacteria TRACE /HPF Urine Casts NONE /LPF Urine Mucus SMALL H /LPF Urine Culture Indicated NO Arterial Blood pH 7.38 7.37-7.43 Test 04/20/21 15:13 04/20/21 16:26 04/20/21 16:37 04/20/21 17:36 Range/Units Glucometer 117 H 99 199 H 70-110 MG/DL White Blood Count 12.0 H 4.3-11.0 10^3/uL Red Blood Count 3.97 L 4.30-5.52 10^6/uL Hemoglobin 11.1 L 13.3-17.7 g/dL Hematocrit 33 L 40-54 % Mean Corpuscular Volume 84 80-99 fL Mean Corpuscular Hemoglobin 28 25-34 pg Mean Corpuscular Hemoglobin Concent 33 32-36 g/dL Red Cell Distribution Width 13.7 10.0-14.5 % Platelet Count 356 130-400 10^3/uL Mean Platelet Volume 9.0 9.0-12.2 fL Sodium Level 139 135-145 MMOL/L Potassium Level 3.7 3.6-5.0 MMOL/L Chloride Level 105 98-107 MMOL/L Carbon Dioxide Level 21 21-32 MMOL/L Anion Gap 13 5-14 MMOL/L Blood Urea Nitrogen 14 7-18 MG/DL Creatinine 0.76 0.60-1.30 MG/DL Estimat Glomerular Filtration Rate > 60 BUN/Creatinine Ratio 18 Glucose Level 97 70-105 MG/DL Calcium Level 8.6 8.5-10.1 MG/DL Beta-Hydroxybutyrate (Chem panel) 2.98 H 0.00-0.27 MMOL/L Test 04/20/21 18:28 04/20/21 19:15 04/20/21 19:28 04/20/21 20:28 Range/Units Glucometer 225 H 196 H 190 H 70-110 MG/DL Sodium Level 136 135-145 MMOL/L Potassium Level 4.0 3.6-5.0 MMOL/L Chloride Level 105 98-107 MMOL/L Carbon Dioxide Level 17 L 21-32 MMOL/L Anion Gap 14 5-14 MMOL/L Blood Urea Nitrogen 12 7-18 MG/DL Creatinine 0.83 0.60-1.30 MG/DL Estimat Glomerular Filtration Rate > 60 BUN/Creatinine Ratio 14 Glucose Level 229 H 70-105 MG/DL Calcium Level 8.8 8.5-10.1 MG/DL Test 04/20/21 21:22 Range/Units Glucometer 185 H 70-110 MG/DL Physical Exam-(CHC) Physical Exam Vital Signs VS - Last 72 Hours, by Label 04/20/21 04/20/21 04/20/21 04/20/21 12:26 17:00 17:15 18:00 Temp 36.3 36.9 36.6 Pulse 131 118 131 112 Resp 24 20 28 13 B/P (MAP) 110/87 (95) 128/85 148/79 (108) 135/82 (99) Pulse Ox 99 99 100 99 O2 Delivery Room Air Room Air Room Air 04/20/21 04/20/21 19:00 19:30 Temp 37.0 Pulse 112 Resp 20 B/P (MAP) 168/96 (120) Pulse Ox 100 100 O2 Delivery Room Air Room Air Capillary Refill : Less Than 3 Seconds General Appearance: WD/WN, thin, other (shivering) HEENT: PERRL/EOMI Neck: non-tender, full range of motion, supple Respiratory: chest non-tender, lungs clear, normal breath sounds, no respiratory distress, no accessory muscle use Cardiovascular: normal peripheral pulses, regular rate, rhythm, no edema, no murmur Gastrointestinal: normal bowel sounds, soft, no organomegaly; No guarding, No rebound; tenderness (epigastric pain) Back: no CVA tenderness, no vertebral tenderness Extremities: normal range of motion, non-tender, normal inspection, no pedal edema, no calf tenderness, normal capillary refill Neurologic/Psychiatric: manager trade II-XII nml as tested, no motor/sensory deficits, alert, normal mood/affect, oriented x 3 Skin: normal color, diaphoresis Lymphatic: no adenopathy Assessment/Plan Assessment/Plan Admission Status: Inpatient Order (span 2 midnights) Reason for Inpatient Admission: Requiring insulin drip and ICU monitoring (1) DKA (diabetic ketoacidoses) Status: Acute Assessment & Plan: - Insulin gtts, NPO, q 4hr BMPs, admit to ICU Qualifiers: Qualified Codes: E10.10 - Type 1 diabetes mellitus with ketoacidosis without coma (2) Type 1 diabetes Status: Chronic Qualifiers: Qualified Codes: E10.10 - Type 1 diabetes mellitus with ketoacidosis without coma (3) Gastroparesis due to DM Status: Chronic Assessment & Plan: - Continue Reglan (4) Nausea & vomiting Status: Acute Assessment & Plan: - Zofran/Phenergen PRN, NPO Qualifiers: Qualified Codes: R11.2 - Nausea with vomiting, unspecified (5) Abdominal pain Status: Acute Qualifiers: Qualified Codes: R10.13 - Epigastric pain (6) Hypertension Status: Chronic Assessment & Plan: - Continue home meds Qualifiers: Qualified Codes: I10 - Essential (primary) hypertension (7) DVT prophylaxis Status: Acute Assessment & Plan: - KATIE Correia MD Apr 20, 2021 22:16
[2021-04-21 00:05] LABS: BILIRUBIN,URINE 1+ (NEGATIVE); CLARITY,URINE CLEAR; COLOR,URINE YELLOW; GLUCOSE, URINE (UA) 3+ (NEGATIVE); KETONES,URINE 2+ (NEGATIVE); LEUKOCYTE ESTERASE ,URINE NEGATIVE (NEGATIVE); NITRITE,URINE NEGATIVE (NEGATIVE); PH,URINE 5.5 (5-9); PROTEIN,URINE TRACE (NEGATIVE)
[2021-04-21 00:17] LABS: BACTERIA,URINE TRACE /HPF; WBC,URINE 0-2 /HPF
[2021-04-21] MEDS: POTASSIUM CL 10MEQ/50ML IVPB 50 ML IV SCH ×7 (01:37→13:10)
[2021-04-21] MEDS: 1/2 NS IV SOLUTION 1,000 ML IV SCH ×3 (01:37→09:42)
[2021-04-21 03:13] LABS: BASOPHILS % (AUTO) 0 % (0-10); EOSINOPHILS % (AUTO) 0 % (0-10); HEMATOCRIT 33 % (40-54); LYMPHOCYTES # (AUTO) 1.4 10^3/uL (1.0-4.0); LYMPHOCYTES % (AUTO) 13 % (12-44); MEAN CORPUSCULAR HEMOGLOBIN 28 pg (25-34); MEAN CORPUSCULAR HGB CONC 33 g/dL (32-36); MEAN CORPUSCULAR VOLUME 84 fL (80-99); MEAN PLATELET VOLUME 9.4 fL (9.0-12.2); MONOCYTES # (AUTO) 0.3 10^3/uL (0.0-1.0); MONOCYTES % (AUTO) 3 % (0-12); NEUTROPHILS # (AUTO) 9.1 10^3/uL (1.8-7.8); NEUTROPHILS % (AUTO) 84 % (42-75); PLATELET COUNT 338 10^3/uL (130-400); WHITE BLOOD COUNT 10.9 10^3/uL (4.3-11.0)
[2021-04-21 03:23] LABS: CHLORIDE 103 MMOL/L (98-107); POTASSIUM 3.9 MMOL/L (3.6-5.0); SODIUM 135 MMOL/L (135-145)
[2021-04-21 03:25] LABS: CALCIUM 8.7 MG/DL (8.5-10.1)
[2021-04-21 03:29] LABS: CREATININE SERUM 0.77 MG/DL (0.60-1.30); GFR ESTIMATED > 60; PHOSPHORUS 2.4 MG/DL (2.3-4.7)
[2021-04-21 03:30] LABS: BUN/CREATININE RATIO 10
[2021-04-21] MEDS: D5 1/2 NS 1000 ML IV SOLUTION 1,000 ML IV SCH ×3 (03:30→12:01)
[2021-04-21 03:31] LABS: MAGNESIUM 1.7 MG/DL (1.6-2.4)
[2021-04-21 03:51] LABS: GLUCOSE 152 MG/DL (70-105)
[2021-04-21 03:53] LABS: CARBON DIOXIDE 18 MMOL/L (21-32)
[2021-04-21] MEDS: PROMETHAZINE INJ 25 MG/ML (PHENERGAN) AMP IVP PRN ×2 (04:33→14:50)
--- NOTE | 2021-04-21 08:19 | Tele-ICU Consult ---
History of Present Illness History of Present Illness Date Seen by Provider: Apr 20, 2021 Time Seen by Provider: 18:24 Date of Admission Allergies and Home Medications Allergies Coded Allergies: Penicillins (Verified Allergy, Unknown, 05/23/06) Home Medications Insulin Aspart 100 Unit/1 Ml Susp, UNIT SQ TIDAC, (Reported) USES 2 UNITS PER EVERY CARB Insulin Determir 1,000 Units/10 Ml Soln, 10 UNITS SQ HS, (Reported) Lisinopril 20 Mg Tablet, 20 MG PO DAILY, (Reported) Metoclopramide HCl 10 Mg Tablet, 10 MG PO BID WITH MEALS, (Reported) Pantoprazole Sodium 40 Mg Tablet.dr, 40 MG PO DAILY, (Reported) Past Medical/Social/Family Hx Patient Social History Tobacco Use?: No Smoking Status: Never a Smoker Smokeless Tobacco Frequency: Never a User Use of E-Cig and/or Vaping dev: No Substance use?: No Alcohol Use?: No Pt stated abuse/neglect: No Immunizations Up To Date Tetanus Booster (TDap): Unknown Hepatitis A: No Hepatitis B: No TB Skin Test: None Date of Pneumonia Vaccine: Jul 16, 2016 Current Status Advance Directives: No Communicates: Verbally Primary Language: [place] Preferred Spoken Language: [place] Is interpretation needed?: No Implanted or Applied Medical D: None Past Medical History PMHx: Type I Diabetes Anxiety Diabetic Retinopathy Thyrotoxicosis Pneumonia Cardiomyopathy Gastroparesis Review of Systems Constitutional: see HPI Sepsis Event Evaluation Height, Weight, BMI Height: 5'11.00" Weight: 126lbs. 0.0oz. 57.941823xj; 17.03 BMI Method:Stated Exam Exam Patient acknowledged, consented, and participated in this virtual visit which was conducted using real time audio/video Vital Signs Date Time Temp Pulse Resp B/P (MAP) Pulse Ox O2 Delivery O2 Flow Rate FiO2 04/21/21 07:00 37.0 04/21/21 06:00 105 161/103 (120) 100 Room Air 04/21/21 05:00 112 25 154/104 (117) 99 Room Air 04/21/21 04:00 105 33 156/93 (114) 99 Room Air 04/21/21 03:30 36.5 Room Air 04/21/21 03:30 100 Room Air 04/21/21 03:00 107 34 151/98 (120) 100 Room Air 04/21/21 02:00 106 22 156/92 (108) 100 Room Air 04/21/21 01:00 108 160/101 (122) 99 Room Air 04/21/21 01:00 108 04/21/21 00:00 110 157/95 (115) 100 Room Air 04/20/21 23:30 100 Room Air 04/20/21 23:30 36.9 Room Air 04/20/21 23:00 111 156/97 (119) 100 Room Air 04/20/21 22:00 105 28 152/93 (114) 99 Room Air 04/20/21 21:00 96 131/112 (126) 100 Room Air 04/20/21 20:24 105 23 163/98 (125) 100 Room Air 04/20/21 19:30 100 Room Air 04/20/21 19:00 110 04/20/21 19:00 37.0 112 20 168/96 (120) 100 Room Air 04/20/21 18:00 112 13 135/82 (99) 99 Room Air 04/20/21 17:15 36.6 131 28 148/79 (108) 100 Room Air 04/20/21 17:00 36.9 118 20 128/85 99 Room Air 04/20/21 12:26 36.3 131 24 110/87 (95) 99 I & O 04/21/21 07:00 Intake Total 5475 ml Output Total 2100 ml Balance 3375 ml Height & Weight Height: 5'11.00" Weight: 126lbs. 0.0oz. 57.374787ye; 17.03 BMI Method:Stated General Appearance: No Apparent Distress, WD/WN, Chronically ill, Mild Distress HEENT: PERRL/EOMI, TMs Normal, Pharynx Normal Neck: Normal Inspection, Supple Respiratory: Lungs Clear, Normal Breath Sounds, No Accessory Muscle Use Cardiovascular: Regular Rate, Rhythm, Normal Peripheral Pulses Capillary Refill: Less Than 3 Seconds Gastrointestinal: normal bowel sounds, soft, no organomegaly; No guarding, No rebound; tenderness (epigastric pain) Extremity: Normal Inspection, Normal Range of Motion Neurologic/Psychiatric: Alert, Oriented x3, No Motor/Sensory Deficits, Normal Mood/Affect Skin: Warm/Dry, Pallor Results Lab Laboratory Tests 04/20/21 12:32 04/20/21 16:37 04/20/21 19:15 04/21/21 02:00 Assessment/Plan Assessment/Plan (Tele-ICU Physician , consultation) Available chart/ vitals / labs / Images reviewed H&P is from ER notes Patient's information available about PMH, Shx, Fhx allergy reviewed in EMR. ROS as per chart and RN report Patient admitted Now in ICU, hemodynamically stable Video assessmnt done using teleICU camera, rest of exam as per RN Discussed with RN. Nauseated, mental status OK Consultants: A/P DKA , DM I -Unclear precipitant, No suspicious for new infection_ *Insulin drip continue to monitor for resolution of acidosis, AG and electrolytes. Continue hydration. *Tx Gastroparesis Leukocytosis - reactive , UA unremarkable >off ABX , follow Lines : Carrillo: OG: Nutrition: po VTE Prophylaxis: ambulate tomorrow Stress Ulcer Prophylaxis: PPI Plans in collaboration with bedside consultants and IM MDs. Discussed with Discussed with RN to reach out if any questions or concerns A total of _ minutes of critical care time was devoted to this patient today, required MAGI FAGAN MD Apr 21, 2021 08:19
--- NOTE | 2021-04-21 08:20 | Tele-ICU Progress Note ---
Subjective Date Seen by a Provider: Apr 21, 2021 Time Seen by a Provider: 08:20 Sepsis Event Evaluation Height, Weight, BMI Height: 5'11.00" Weight: 126lbs. 0.0oz. 57.096776ti; 17.03 BMI Method:Stated Exam Exam Patient acknowledged, consented, and participated in this virtual visit which was conducted using real time audio/video Vital Signs Date Time Temp Pulse Resp B/P (MAP) Pulse Ox O2 Delivery O2 Flow Rate FiO2 04/21/21 07:00 37.0 04/21/21 06:00 105 161/103 (120) 100 Room Air 04/21/21 05:00 112 25 154/104 (117) 99 Room Air 04/21/21 04:00 105 33 156/93 (114) 99 Room Air 04/21/21 03:30 36.5 Room Air 04/21/21 03:30 100 Room Air 04/21/21 03:00 107 34 151/98 (120) 100 Room Air 04/21/21 02:00 106 22 156/92 (108) 100 Room Air 04/21/21 01:00 108 160/101 (122) 99 Room Air 04/21/21 01:00 108 04/21/21 00:00 110 157/95 (115) 100 Room Air 04/20/21 23:30 100 Room Air 04/20/21 23:30 36.9 Room Air 04/20/21 23:00 111 156/97 (119) 100 Room Air 04/20/21 22:00 105 28 152/93 (114) 99 Room Air 04/20/21 21:00 96 131/112 (126) 100 Room Air 04/20/21 20:24 105 23 163/98 (125) 100 Room Air 04/20/21 19:30 100 Room Air 04/20/21 19:00 110 04/20/21 19:00 37.0 112 20 168/96 (120) 100 Room Air 04/20/21 18:00 112 13 135/82 (99) 99 Room Air 04/20/21 17:15 36.6 131 28 148/79 (108) 100 Room Air 04/20/21 17:00 36.9 118 20 128/85 99 Room Air 04/20/21 12:26 36.3 131 24 110/87 (95) 99 I & O 04/21/21 07:00 Intake Total 5475 ml Output Total 2100 ml Balance 3375 ml Height & Weight Height: 5'11.00" Weight: 126lbs. 0.0oz. 57.232565zx; 17.03 BMI Method:Stated General Appearance: No Apparent Distress, WD/WN, Chronically ill, Mild Distress HEENT: PERRL/EOMI, TMs Normal, Pharynx Normal Neck: Normal Inspection, Supple Respiratory: Lungs Clear, Normal Breath Sounds, No Accessory Muscle Use Cardiovascular: Regular Rate, Rhythm, Normal Peripheral Pulses Capillary Refill: Less Than 3 Seconds Gastrointestinal: normal bowel sounds, soft, no organomegaly; No guarding, No rebound; tenderness (epigastric pain) Extremity: Normal Inspection, Normal Range of Motion Neurologic/Psychiatric: Alert, Oriented x3, No Motor/Sensory Deficits, Normal Mood/Affect Skin: Warm/Dry, Pallor Results Lab Laboratory Tests 04/20/21 12:32 04/20/21 16:37 04/20/21 19:15 04/21/21 02:00 Assessment/Plan Assessment/Plan (Tele-ICU Physician , Progress Note ) Available chart/ vitals / labs / Images reviewed Video assessment done using teleICU camera, rest of exam as per RN Discussed with RN Events overnight : nausea Afebrile RA hemodynamically stable, no pressors, I/O = pos 3600 Drips: d5 1/2 As per RN exam : unremarkable Consultants: Hospital course: 04/20 - DKA A/P DKA , DM I -Unclear precipitant, No suspicious for new infection_ *Insulin drip continue to monitor for resolution of acidosis, AG and electroly sabino. - improving , anticipate off insulin gtt soon - will start levemir - 1/2 dose since still nauseated , hydration to cont *Tx Gastroparesis - difficult to control - multiple meds , QTc 4-5 Leukocytosis - reactive , - improve , UA unremarkable >off ABX , follow Lines : Carrillo: OG: Nutrition: po VTE Prophylaxis: lovenox Stress Ulcer Prophylaxis: PPI Plans in collaboration with bedside consultants and IM MDs. Discussed with RN to reach out if any questions or concerns A total of 20 minutes of critical care time was devoted to this patient today, required to treat and/or prevent further deterioration of critical care condition ( as above ) . MAGI FAGAN MD Apr 21, 2021 08:20
[2021-04-21] MEDS: lisINopril 20 MG (PRINIVIL) TABLET PO SCH (08:34)
[2021-04-21] MEDS: ENOXAPARIN 30 MG/0.3 ML (LOVENOX) SYR SC SCH (08:34)
[2021-04-21 09:54] LABS: CHLORIDE 106 MMOL/L (98-107); POTASSIUM 3.5 MMOL/L (3.6-5.0); SODIUM 139 MMOL/L (135-145)
[2021-04-21 09:55] LABS: CALCIUM 8.7 MG/DL (8.5-10.1); GLUCOSE 147 MG/DL (70-105)
[2021-04-21 09:57] LABS: CARBON DIOXIDE 25 MMOL/L (21-32)
[2021-04-21 09:59] LABS: CREATININE SERUM 0.72 MG/DL (0.60-1.30); GFR ESTIMATED > 60
[2021-04-21 10:00] LABS: BUN/CREATININE RATIO 6
[2021-04-21] MEDS: ONDANSETRON 4 MG/2 ML (SDV) Z0FRAN IVP PRN ×2 (12:01→20:31)
[2021-04-21] MEDS: inSUlin ASPART (NovoLOG) 1 UNIT/0.01 ML (CHARGE PER UNIT) SC SCH ×2 (16:34→20:28)
[2021-04-21] MEDS: METOCLOPRAMIDE INJ 10 MG/2 ML (REGLAN) IVP PRN (17:15)
[2021-04-21] MEDS: PANTOPRAZOLE 40 MG (PROTONIX) VIAL IV SCH (17:15)
--- NOTE | 2021-04-21 17:58 | Progress Note ---
Subjective Subjective/Events-last exam Patient states that he is feeling alittle better but still having some nausea. He is not quite ready to eat. Review of Systems Pulmonary: No Dyspnea Cardiovascular: Palpitations; No: Chest Pain Gastrointestinal: Nausea, Vomiting, Abdominal Pain Neurological: Weakness, Incoordination Objective Exam Last Set of Vital Signs Vital Signs Date Time Temp Pulse Resp B/P (MAP) Pulse Ox O2 Delivery O2 Flow Rate FiO2 04/21/21 17:00 109 158/93 (114) 99 Room Air 04/21/21 16:00 11 04/21/21 15:53 37.2 Capillary Refill : Less Than 3 Seconds I&O Intake and Output 04/21/21 00:00 Intake Total 4250 ml Output Total 600 ml Balance 3650 ml Intake Oral 50 ml IV Total 4200 ml Output Urine Total 0 ml Emesis 600 ml Daily Weight Change No General: Alert, Oriented X3, Cooperative, Mild Distress Lungs: Clear to Auscultation, Normal Air Movement Heart: No Murmurs, Other (tachycardic rate) Abdomen: Normal Bowel Sounds, Soft, Other (mild RLQ ttp, no rebound or gaurding) Extremities: No Edema, No Tenderness/Swelling Skin: No Rashes Neuro: Normal Speech, Cranial Nerves 3-12 NL Results/Procedures Lab Laboratory Tests 04/20/21 18:28: Glucometer 225H 04/20/21 19:15: Sodium Level 136, Potassium Level 4.0, Chloride Level 105, Carbon Dioxide Level 17L, Anion Gap 14, Blood Urea Nitrogen 12, Creatinine 0.83, Estimat Glomerular Filtration Rate > 60, BUN/Creatinine Ratio 14, Glucose Level 229H, Calcium Level 8.8 04/20/21 19:28: Glucometer 196H 04/20/21 20:28: Glucometer 190H 04/20/21 21:22: Glucometer 185H 04/20/21 22:28: Glucometer 150H 04/20/21 23:31: Glucometer 146H 04/20/21 23:36: Urine Color YELLOW, Urine Clarity CLEAR, Urine pH 5.5, Urine Specific [place] 1.020, Urine Protein TRACEH, Urine Glucose (UA) 3+H, Urine Ketones 2+H, Urine Nitrite NEGATIVE, Urine Bilirubin 1+H, Urine Urobilinogen 0.2, Urine Leukocyte Esterase NEGATIVE, Urine RBC (Auto) 2+H, Urine RBC 10-25H, Urine WBC 0-2, Urine Crystals NONE, Urine Bacteria TRACE, Urine Casts NONE, Urine Mucus SMALLH, Urine Culture Indicated NO 04/21/21 00:25: Glucometer 159H 04/21/21 01:34: Glucometer 143H 04/21/21 02:00: White Blood Count 10.9, Red Blood Count 3.95L, Hemoglobin 11.0L, Hematocrit 33L, Mean Corpuscular Volume 84, Mean Corpuscular Hemoglobin 28, Mean Corpuscular Hemoglobin Concent 33, Red Cell Distribution Width 13.7, Platelet Count 338, Mean Platelet Volume 9.4, Immature Granulocyte % (Auto) 1, Neutrophils (%) (Auto) 84H, Lymphocytes (%) (Auto) 13, Monocytes (%) (Auto) 3, Eosinophils (%) (Auto) 0, Basophils (%) (Auto) 0, Neutrophils # (Auto) 9.1H, Lymphocytes # (Auto) 1.4, Monocytes # (Auto) 0.3, Eosinophils # (Auto) 0.0, Basophils # (Auto) 0.0, Immature Granulocyte # (Auto) 0.1, Sodium Level 135, Potassium Level 3.9, Chloride Level 103, Carbon Dioxide Level 18L, Anion Gap 14, Blood Urea Nitrogen 8, Creatinine 0.77, Estimat Glomerular Filtration Rate > 60, BUN/Creatinine Ratio 10, Glucose Level 152H, Calcium Level 8.7, Phosphorus Level 2.4, Magnesium Level 1.7 04/21/21 02:31: Glucometer 152H 04/21/21 03:29: Glucometer 158H 04/21/21 04:28: Glucometer 156H 04/21/21 05:27: Glucometer 160H 04/21/21 06:26: Glucometer 165H 04/21/21 07:35: Glucometer 179H 04/21/21 08:31: Glucometer 186H 04/21/21 09:27: Glucometer 149H 04/21/21 09:30: Sodium Level 139, Potassium Level 3.5L, Chloride Level 106, Carbon Dioxide Level 25, Anion Gap 8, Blood Urea Nitrogen 4L, Creatinine 0.72, Estimat Glomerular Filtration Rate > 60, BUN/Creatinine Ratio 6, Glucose Level 147H, Calcium Level 8.7 04/21/21 10:32: Glucometer 187H 04/21/21 11:32: Glucometer 133H 04/21/21 13:17: Glucometer 127H 04/21/21 15:57: Glucometer 167H Microbiology 04/20/21 MRSA Screen - Final, Complete MRSA not isolated Assessment/Plan Assessment/Plan (1) DKA (diabetic ketoacidoses) Status: Acute Assessment & Plan: - Insulin gtts, NPO, q 4hr BMPs, admit to ICU 04/21: Gap is closing, will transition to subcutaneous insulin, will advance diet as tolerated Qualifiers: Qualified Codes: E10.10 - Type 1 diabetes mellitus with ketoacidosis without coma (2) Type 1 diabetes Status: Chronic Qualifiers: Qualified Codes: E10.10 - Type 1 diabetes mellitus with ketoacidosis without coma (3) Gastroparesis due to DM Status: Chronic Assessment & Plan: - Continue Reglan (4) Nausea & vomiting Status: Acute Assessment & Plan: - Zofran/Phenergen PRN, NPO 04/21: Advance diet as tolerated Qualifiers: Qualified Codes: R11.2 - Nausea with vomiting, unspecified (5) Abdominal pain Status: Acute Qualifiers: Qualified Codes: R10.13 - Epigastric pain (6) Hypertension Status: Chronic Assessment & Plan: - Continue home meds Qualifiers: Qualified Codes: I10 - Essential (primary) hypertension (7) DVT prophylaxis Status: Acute Assessment & Plan: - SHAMIKA Correia MD Apr 21, 2021 17:58
[2021-04-22 04:00] LABS: BASOPHILS % (AUTO) 0 % (0-10); EOSINOPHILS % (AUTO) 0 % (0-10); HEMATOCRIT 33 % (40-54); HEMOGLOBIN 10.8 g/dL (13.3-17.7); LYMPHOCYTES # (AUTO) 2.7 10^3/uL (1.0-4.0); LYMPHOCYTES % (AUTO) 25 % (12-44); MEAN CORPUSCULAR HEMOGLOBIN 28 pg (25-34); MEAN CORPUSCULAR HGB CONC 33 g/dL (32-36); MEAN CORPUSCULAR VOLUME 84 fL (80-99); MEAN PLATELET VOLUME 9.2 fL (9.0-12.2); MONOCYTES # (AUTO) 0.8 10^3/uL (0.0-1.0); MONOCYTES % (AUTO) 7 % (0-12); NEUTROPHILS # (AUTO) 7.5 10^3/uL (1.8-7.8); NEUTROPHILS % (AUTO) 67 % (42-75); PLATELET COUNT 271 10^3/uL (130-400); WHITE BLOOD COUNT 11.1 10^3/uL (4.3-11.0)
[2021-04-22 04:14] LABS: CHLORIDE 104 MMOL/L (98-107); POTASSIUM 3.5 MMOL/L (3.6-5.0); SODIUM 139 MMOL/L (135-145)
[2021-04-22 04:15] LABS: CALCIUM 8.8 MG/DL (8.5-10.1)
[2021-04-22 04:16] LABS: GLUCOSE 195 MG/DL (70-105)
[2021-04-22 04:17] LABS: CARBON DIOXIDE 23 MMOL/L (21-32)
[2021-04-22 04:20] LABS: CREATININE SERUM 0.69 MG/DL (0.60-1.30); GFR ESTIMATED > 60
[2021-04-22 04:21] LABS: BUN/CREATININE RATIO 4
[2021-04-22 04:22] LABS: MAGNESIUM 1.8 MG/DL (1.6-2.4)
[2021-04-22] MEDS ORDERED: MAGNESIUM 1 GM/100 ML IVPB 100 ML IV SCH (06:00)
[2021-04-22] MEDS ORDERED: KCL 20 MEQ TAB (K-DUR) PO SCH (06:00)
[2021-04-22] MEDS ORDERED: POTASSIUM CL 10MEQ/50ML IVPB 50 ML IV SCH (06:00)
[2021-04-22] MEDS: inSUlin ASPART (NovoLOG) 1 UNIT/0.01 ML (CHARGE PER UNIT) SC SCH ×4 (06:40→21:24)
[2021-04-22] MEDS: PROMETHAZINE INJ 25 MG/ML (PHENERGAN) AMP IVP PRN (07:39)
[2021-04-22] MEDS: lisINopril 20 MG (PRINIVIL) TABLET PO SCH (07:39)
[2021-04-22] MEDS: ENOXAPARIN 30 MG/0.3 ML (LOVENOX) SYR SC SCH (07:39)
[2021-04-22] MEDS: ONDANSETRON 4 MG/2 ML (SDV) Z0FRAN IVP PRN (09:23)
--- NOTE | 2021-04-22 10:39 | Tele-ICU Progress Note ---
Subjective Date Seen by a Provider: Apr 22, 2021 Time Seen by a Provider: 10:39 Sepsis Event Evaluation Height, Weight, BMI Height: 5'11.00" Weight: 126lbs. 0.0oz. 57.857129xr; 17.03 BMI Method:Stated Exam Exam Patient acknowledged, consented, and participated in this virtual visit which was conducted using real time audio/video Vital Signs Date Time Temp Pulse Resp B/P (MAP) Pulse Ox O2 Delivery O2 Flow Rate FiO2 04/22/21 09:00 98 21 161/104 (123) 93 Room Air 04/22/21 08:41 97 Room Air 04/22/21 08:00 101 29 167/105 (125) 100 Room Air 04/22/21 08:00 36.8 04/22/21 07:00 91 14 169/110 (129) 99 Room Air 04/22/21 06:36 97 04/22/21 06:00 95 19 132/81 (98) 98 Room Air 04/22/21 05:00 93 23 123/82 (96) 99 Room Air 04/22/21 04:00 87 17 158/102 (120) 99 Room Air 04/22/21 04:00 96 Room Air 04/22/21 03:00 75 18 126/85 (99) 99 Room Air 04/22/21 02:00 84 17 145/93 (110) 99 Room Air 04/22/21 01:00 90 04/22/21 01:00 84 18 128/83 (98) 99 Room Air 04/22/21 00:00 84 20 116/73 (87) 99 Room Air 04/21/21 23:59 95 Room Air 04/21/21 23:00 88 20 120/73 (89) 99 Room Air 04/21/21 22:00 95 20 124/90 (101) 99 Room Air 04/21/21 21:00 113 27 164/107 (126) 100 Room Air 04/21/21 20:00 97 Room Air 04/21/21 20:00 117 33 158/92 (114) 98 Room Air 04/21/21 19:41 36.8 04/21/21 19:00 87 04/21/21 19:00 87 21 139/86 (103) 99 Room Air 04/21/21 18:00 103 133/86 (102) 99 Room Air 04/21/21 17:00 109 158/93 (114) 99 Room Air 04/21/21 16:00 109 11 155/91 (112) 99 Room Air 04/21/21 15:53 37.2 04/21/21 15:44 98 Room Air 04/21/21 15:00 110 12 152/88 (109) 98 Room Air 04/21/21 14:00 99 16 143/94 (110) 99 Room Air 04/21/21 13:00 87 19 117/77 (90) 99 Room Air 04/21/21 12:39 86 04/21/21 12:00 104 20 154/108 (123) 99 Room Air 04/21/21 12:00 100 Room Air 04/21/21 12:00 36.8 04/21/21 11:00 88 13 105/75 (85) 100 Room Air I & O 04/22/21 07:00 Intake Total 900 ml Output Total 3700 ml Balance -2800 ml Height & Weight Height: 5'11.00" Weight: 126lbs. 0.0oz. 57.999696im; 17.03 BMI Method:Stated General Appearance: No Apparent Distress, WD/WN, Chronically ill, Mild Distress HEENT: PERRL/EOMI, TMs Normal, Pharynx Normal Neck: Normal Inspection, Supple Respiratory: Lungs Clear, Normal Breath Sounds, No Accessory Muscle Use Cardiovascular: Regular Rate, Rhythm, Normal Peripheral Pulses Capillary Refill: Less Than 3 Seconds Gastrointestinal: normal bowel sounds, soft, no organomegaly; No guarding, No rebound; tenderness (epigastric pain) Extremity: Normal Inspection, Normal Range of Motion Neurologic/Psychiatric: Alert, Oriented x3, No Motor/Sensory Deficits, Normal Mood/Affect Skin: Warm/Dry, Pallor Results Lab Laboratory Tests 04/20/21 12:32 04/20/21 16:37 04/20/21 19:15 04/21/21 02:00 04/21/21 09:30 04/22/21 03:07 Assessment/Plan Assessment/Plan (Tele-ICU Physician , Progress Note ) Available chart/ vitals / labs / Images reviewed Video assessment done using teleICU camera, rest of exam as per RN Discussed with RN Events overnight : nausea Afebrile RA hemodynamically stable, no pressors, As per RN exam : unremarkable Consultants: Hospital course: 04/20 - DKA A/P DKA , DM I -Unclear precipitant, No suspicious for new infection_ *Insulin drip off levemir *Tx Gastroparesis - difficult to control - multiple meds , QTc 405 MIGH NEED OFF LABEL MEDS - ( ? ZYPREXA 5 MG- PER PCP Leukocytosis - reactive , - improve , UA unremarkable >off ABX , follow Lines : Carrillo: OG: Nutrition: po VTE Prophylaxis: lovenox Stress Ulcer Prophylaxis: PPI Plans in collaboration with bedside consultants and IM MDs. Discussed with RN to reach out if any questions or concerns A total of 10minutes of critical care time was devoted to this patient today, required to treat and/or prevent further deterioration of critical care condition ( as above ) . MAGI FAGAN MD Apr 22, 2021 10:39
[2021-04-22] MEDS: METOCLOPRAMIDE INJ 10 MG/2 ML (REGLAN) IVP PRN (14:31)
[2021-04-22] MEDS: D5 1/2 NS 1000 ML IV SOLUTION 1,000 ML IV SCH (16:50)
[2021-04-22] MEDS: PANTOPRAZOLE 40 MG (PROTONIX) VIAL IV SCH (16:50)
--- NOTE | 2021-04-22 21:12 | Progress Note ---
Subjective Subjective/Events-last exam Patient doing better this AM. Not ready for regular diet but has been tolerating more PO diet. Review of Systems General: No Chills, No Fatigue Pulmonary: No Dyspnea, No Cough Cardiovascular: No: Chest Pain, Palpitations, Edema Gastrointestinal: Nausea, Abdominal Pain; No: Vomiting, Diarrhea, Constipation Genitourinary: No Dysuria, No Frequency Neurological: No: Weakness, Incoordination Objective Exam Last Set of Vital Signs Vital Signs Date Time Temp Pulse Resp B/P (MAP) Pulse Ox O2 Delivery O2 Flow Rate FiO2 04/22/21 20:00 94 29 159/100 (119) 95 Room Air 04/22/21 19:45 35.5 Capillary Refill : Less Than 3 Seconds I&O Intake and Output 04/22/21 00:00 Intake Total 2075 ml Output Total 4500 ml Balance -2425 ml Intake Oral 925 ml IV Total 1150 ml Output Urine Total 4200 ml Emesis 300 ml # Voids 3 # Bowel Movements 1 General: Alert, Oriented X3, Cooperative, No Acute Distress HEENT: Mucous Memb Moist/[place] Lungs: Clear to Auscultation, Normal Air Movement Heart: Regular Rate, No Murmurs Abdomen: Normal Bowel Sounds, Soft, Other (+ epigastric and LLQ ttp) Extremities: No Edema, No Tenderness/Swelling Skin: No Rashes, No Breakdown Neuro: Normal Speech, Strength at 5/5 X4 Ext, Sensation Intact, Cranial Nerves 3-12 NL Psych/Mental Status: Mental Status NL, Mood NL Results/Procedures Lab Laboratory Tests 04/22/21 01:01: Glucometer 201H 04/22/21 03:07: White Blood Count 11.1H, Red Blood Count 3.89L, Hemoglobin 10.8L, Hematocrit 33L , Mean Corpuscular Volume 84, Mean Corpuscular Hemoglobin 28, Mean Corpuscular Hemoglobin Concent 33, Red Cell Distribution Width 13.7, Platelet Count 271, Mean Platelet Volume 9.2, Immature Granulocyte % (Auto) 1, Neutrophils (%) (Auto) 67, Lymphocytes (%) (Auto) 25, Monocytes (%) (Auto) 7, Eosinophils (%) (Auto) 0, Basophils (%) (Auto) 0, Neutrophils # (Auto) 7.5, Lymphocytes # (Auto) 2.7, Monocytes # (Auto) 0.8, Eosinophils # (Auto) 0.0, Basophils # (Auto) 0.0, Immature Granulocyte # (Auto) 0.1, Sodium Level 139, Potassium Level 3.5L, Chloride Level 104, Carbon Dioxide Level 23, Anion Gap 12, Blood Urea Nitrogen 3L, Creatinine 0.69, Estimat Glomerular Filtration Rate > 60, BUN/Creatinine Ratio 4, Glucose Level 195H, Calcium Level 8.8, Phosphorus Level 4.0, Magnesium Level 1.8 04/22/21 05:16: Glucometer 178H 04/22/21 08:17: Glucometer 238H 04/22/21 10:22: Glucometer 207H 04/22/21 14:23: Glucometer 155H 04/22/21 16:16: Beta-Hydroxybutyrate (Chem panel) 1.59H 04/22/21 18:07: Glucometer 256H Microbiology 04/20/21 MRSA Screen - Final, Complete MRSA not isolated Assessment/Plan Assessment/Plan (1) DKA (diabetic ketoacidoses) Status: Acute Assessment & Plan: - Insulin gtts, NPO, q 4hr BMPs, admit to ICU 04/21: Gap is closing, will transition to subcutaneous insulin, will advance diet as tolerated 04/22: Gap closed, Subcutaneous insulin, advance diet as tolerated, increase to levemir 10 mg BID Qualifiers: Qualified Codes: E10.10 - Type 1 diabetes mellitus with ketoacidosis without coma (2) Type 1 diabetes Status: Chronic Qualifiers: Qualified Codes: E10.10 - Type 1 diabetes mellitus with ketoacidosis without coma (3) Gastroparesis due to DM Status: Chronic Assessment & Plan: - Continue Reglan (4) Nausea & vomiting Status: Acute Assessment & Plan: - Zofran/Phenergen PRN, NPO 04/21: Advance diet as tolerated Qualifiers: Qualified Codes: R11.2 - Nausea with vomiting, unspecified (5) Abdominal pain Status: Acute Qualifiers: Qualified Codes: R10.13 - Epigastric pain (6) Hypertension Status: Chronic Assessment & Plan: - Continue home meds Qualifiers: Qualified Codes: I10 - Essential (primary) hypertension (7) DVT prophylaxis Status: Acute Assessment & Plan: - SHAMIKA Correia MD Apr 22, 2021 21:12
[2021-04-23 03:43] LABS: BASOPHILS % (AUTO) 0 % (0-10); EOSINOPHILS # (AUTO) 0.1 10^3/uL (0.0-0.3); EOSINOPHILS % (AUTO) 1 % (0-10); HEMATOCRIT 34 % (40-54); HEMOGLOBIN 11.3 g/dL (13.3-17.7); LYMPHOCYTES # (AUTO) 2.6 10^3/uL (1.0-4.0); LYMPHOCYTES % (AUTO) 37 % (12-44); MEAN CORPUSCULAR HEMOGLOBIN 27 pg (25-34); MEAN CORPUSCULAR HGB CONC 34 g/dL (32-36); MEAN CORPUSCULAR VOLUME 82 fL (80-99); MEAN PLATELET VOLUME 8.5 fL (9.0-12.2); MONOCYTES # (AUTO) 0.6 10^3/uL (0.0-1.0); MONOCYTES % (AUTO) 9 % (0-12); NEUTROPHILS # (AUTO) 3.9 10^3/uL (1.8-7.8); NEUTROPHILS % (AUTO) 53 % (42-75); PLATELET COUNT 266 10^3/uL (130-400); WHITE BLOOD COUNT 7.2 10^3/uL (4.3-11.0)
[2021-04-23 04:01] LABS: CHLORIDE 102 MMOL/L (98-107); POTASSIUM 2.9 MMOL/L (3.6-5.0); SODIUM 139 MMOL/L (135-145)
[2021-04-23 04:02] LABS: CALCIUM 8.9 MG/DL (8.5-10.1)
[2021-04-23 04:03] LABS: GLUCOSE 62 MG/DL (70-105)
[2021-04-23 04:04] LABS: CARBON DIOXIDE 26 MMOL/L (21-32)
[2021-04-23 04:07] LABS: BUN/CREATININE RATIO 7; CREATININE SERUM 0.67 MG/DL (0.60-1.30); GFR ESTIMATED > 60
[2021-04-23] MEDS: inSUlin ASPART (NovoLOG) 1 UNIT/0.01 ML (CHARGE PER UNIT) SC SCH ×4 (06:07→20:02)
[2021-04-23] MEDS: ENOXAPARIN 30 MG/0.3 ML (LOVENOX) SYR SC SCH (09:07)
[2021-04-23] MEDS: lisINopril 20 MG (PRINIVIL) TABLET PO SCH (09:07)
[2021-04-23] MEDS: METOCLOPRAMIDE INJ 10 MG/2 ML (REGLAN) IVP PRN (09:11)
--- NOTE | 2021-04-23 15:25 | Progress Note ---
Subjective Subjective/Events-last exam Patient feeling better. Going to try and eat breakfast this AM. Review of Systems Pulmonary: No Dyspnea, No Cough Cardiovascular: No: Chest Pain, Palpitations, Edema Gastrointestinal: Nausea, Abdominal Pain; No: Vomiting, Diarrhea, Constipation Genitourinary: No Dysuria, No Frequency, No Incontinence Objective Exam Last Set of Vital Signs Vital Signs Date Time Temp Pulse Resp B/P (MAP) Pulse Ox O2 Delivery O2 Flow Rate FiO2 04/23/21 11:50 36.8 99 18 104/68 (80) 99 Room Air Capillary Refill : Less Than 3 Seconds I&O Intake and Output 04/23/21 00:00 Intake Total 1100 ml Output Total 3175 ml Balance -2075 ml Intake Oral 1100 ml Output Urine Total 2825 ml Emesis 350 ml General: Alert, Oriented X3, Cooperative, No Acute Distress Lungs: Clear to Auscultation, Normal Air Movement Heart: Regular Rate, No Murmurs Abdomen: Normal Bowel Sounds, Soft, Other (mild epigastric ttp) Extremities: No Edema, No Tenderness/Swelling Skin: No Rashes, No Breakdown Results/Procedures Lab Laboratory Tests 04/22/21 16:16: Beta-Hydroxybutyrate (Chem panel) 1.59H 04/22/21 18:07: Glucometer 256H 04/22/21 21:16: Glucometer 334H 04/23/21 00:47: Glucometer 155H 04/23/21 03:30: White Blood Count 7.2, Red Blood Count 4.12L, Hemoglobin 11.3L, Hematocrit 34L, Mean Corpuscular Volume 82, Mean Corpuscular Hemoglobin 27, Mean Corpuscular Hemoglobin Concent 34, Red Cell Distribution Width 13.2, Platelet Count 266, Mean Platelet Volume 8.5L, Immature Granulocyte % (Auto) 0, Neutrophils (%) (Auto) 53, Lymphocytes (%) (Auto) 37, Monocytes (%) (Auto) 9, Eosinophils (%) (Auto) 1, Basophils (%) (Auto) 0, Neutrophils # (Auto) 3.9, Lymphocytes # (Auto) 2.6, Monocytes # (Auto) 0.6, Eosinophils # (Auto) 0.1, Basophils # (Auto) 0.0, Immature Granulocyte # (Auto) 0.0, Sodium Level 139, Potassium Level 2.9L, Chloride Level 102, Carbon Dioxide Level 26, Anion Gap 11, Blood Urea Nitrogen 5L, Creatinine 0.67, Estimat Glomerular Filtration Rate > 60, BUN/Creatinine Ratio 7, Glucose Level 62L, Calcium Level 8.9 04/23/21 04:43: Glucometer 42*L 04/23/21 05:09: Glucometer 123H 04/23/21 06:11: Glucometer 190H 04/23/21 11:52: Glucometer 95 Microbiology 04/20/21 MRSA Screen - Final, Complete MRSA not isolated Assessment/Plan Assessment/Plan (1) DKA (diabetic ketoacidoses) Status: Resolved Assessment & Plan: - Insulin gtts, NPO, q 4hr BMPs, admit to ICU 04/21: Gap is closing, will transition to subcutaneous insulin, will advance diet as tolerated 04/22: Gap closed, Subcutaneous insulin, advance diet as tolerated, increase to levemir 10 mg BID Qualifiers: Qualified Codes: E10.10 - Type 1 diabetes mellitus with ketoacidosis without coma (2) Type 1 diabetes Status: Chronic Assessment & Plan: 04/23: Restarted home insulin Qualifiers: Qualified Codes: E10.10 - Type 1 diabetes mellitus with ketoacidosis without coma (3) Gastroparesis due to DM Status: Chronic Assessment & Plan: - Continue Reglan (4) Nausea & vomiting Status: Acute Assessment & Plan: - Zofran/Phenergen PRN, NPO 04/21: Advance diet as tolerated Qualifiers: Qualified Codes: R11.2 - Nausea with vomiting, unspecified (5) Abdominal pain Status: Acute Qualifiers: Qualified Codes: R10.13 - Epigastric pain (6) Hypertension Status: Chronic Assessment & Plan: - Continue home meds Qualifiers: Qualified Codes: I10 - Essential (primary) hypertension (7) DVT prophylaxis Status: Acute Assessment & Plan: - SHAMIKA Correia MD Apr 23, 2021 15:25
[2021-04-23] MEDS: PANTOPRAZOLE 40 MG (PROTONIX) VIAL IV SCH (16:20)
[2021-04-24 06:35] LABS: BASOPHILS % (AUTO) 0 % (0-10); EOSINOPHILS # (AUTO) 0.2 10^3/uL (0.0-0.3); EOSINOPHILS % (AUTO) 2 % (0-10); HEMATOCRIT 34 % (40-54); HEMOGLOBIN 11.1 g/dL (13.3-17.7); LYMPHOCYTES # (AUTO) 2.2 10^3/uL (1.0-4.0); LYMPHOCYTES % (AUTO) 28 % (12-44); MEAN CORPUSCULAR HEMOGLOBIN 27 pg (25-34); MEAN CORPUSCULAR HGB CONC 33 g/dL (32-36); MEAN CORPUSCULAR VOLUME 84 fL (80-99); MONOCYTES # (AUTO) 0.6 10^3/uL (0.0-1.0); MONOCYTES % (AUTO) 8 % (0-12); NEUTROPHILS # (AUTO) 4.9 10^3/uL (1.8-7.8); NEUTROPHILS % (AUTO) 62 % (42-75); PLATELET COUNT 271 10^3/uL (130-400); WHITE BLOOD COUNT 7.9 10^3/uL (4.3-11.0)
[2021-04-24 06:43] LABS: CHLORIDE 103 MMOL/L (98-107); POTASSIUM 3.5 MMOL/L (3.6-5.0); SODIUM 141 MMOL/L (135-145)
[2021-04-24 06:44] LABS: CALCIUM 8.5 MG/DL (8.5-10.1)
[2021-04-24 06:45] LABS: GLUCOSE 81 MG/DL (70-105)
[2021-04-24 06:47] LABS: CARBON DIOXIDE 28 MMOL/L (21-32)
[2021-04-24 06:49] LABS: CREATININE SERUM 0.71 MG/DL (0.60-1.30); GFR ESTIMATED > 60
[2021-04-24 06:50] LABS: BUN/CREATININE RATIO 14
[2021-04-24] MEDS: inSUlin ASPART (NovoLOG) 1 UNIT/0.01 ML (CHARGE PER UNIT) SC SCH ×2 (06:59→12:00)
[2021-04-24] MEDS: ENOXAPARIN 30 MG/0.3 ML (LOVENOX) SYR SC SCH (09:33)
[2021-04-24] MEDS: lisINopril 20 MG (PRINIVIL) TABLET PO SCH (09:33)
--- NOTE | 2021-04-24 10:05 | Discharge Summary ---
Diagnosis/Chief Complaint Date of Admission Apr 20, 2021 at 17:15 Date of Discharge Discharge Date: Apr 24, 2021 Discharge Time: 10:02 Primary [facility] Discharge Summary Discharge Physical Exam Allergies: Coded Allergies: Penicillins (Verified Allergy, Unknown, 05/23/06) Vitals & I&Os Vital Signs Date Time Temp Pulse Resp B/P (MAP) Pulse Ox O2 Delivery O2 Flow Rate FiO2 04/24/21 08:00 35.5 91 18 159/100 (119) 100 Room Air General Appearance: No Apparent Distress, Thin Respiratory: Chest Non Tender, Lungs Clear, Normal Breath Sounds, No Accessory Muscle Use, No Respiratory Distress Cardiovascular: Regular Rate, Rhythm, No Edema, No Gallop, No JVD, No Murmur, Normal Peripheral Pulses Gastrointestinal: Non Tender, Soft Hospital Course Was the Problem List Reviewed?: Yes 30 yo M with known type I DM that presents with abdominal pain and N/V. He states that he started feeling bad last night and woke up and his blood sugars were in the 300s. States that he had the abdominal pain and nausea worse this AM. He took a bolus of insulin prior to arriving at the ER. Has not had anything to eat in 48 hrs. Last admission for DKA was about 1 month ago. Patient was admitted to the intensive care unit on IV insulin and prokinetic agents as well as antinausea medication. He responded quickly in regards to DKA but took longer to get any kind of an appetite back likely due to longstanding diabetic related gastroparesis. Diet was slowly advanced and at the time of discharge she had tolerated solids for 36 to 48 hours and felt well enough to go home. He was discharged on same medication and advised to call to reschedule a gastroenterology appointment in [place] that he had missed due to this hospitalization. Labs (last 24 hrs) Laboratory Tests 04/23/21 11:52: Glucometer 95 04/23/21 15:49: Glucometer 100 04/23/21 19:30: Glucometer 119H 04/23/21 23:42: Glucometer 166H 04/24/21 03:58: Glucometer 84 04/24/21 05:55: White Blood Count 7.9, Red Blood Count 4.05L, Hemoglobin 11.1L, Hematocrit 34L, Mean Corpuscular Volume 84, Mean Corpuscular Hemoglobin 27, Mean Corpuscular Hemoglobin Concent 33, Red Cell Distribution Width 13.3, Platelet Count 271, Mean Platelet Volume 9.0, Immature Granulocyte % (Auto) 0, Neutrophils (%) (Auto) 62, Lymphocytes (%) (Auto) 28, Monocytes (%) (Auto) 8, Eosinophils (%) (Auto) 2, Basophils (%) (Auto) 0, Neutrophils # (Auto) 4.9, Lymphocytes # (Auto) 2.2, Monocytes # (Auto) 0.6, Eosinophils # (Auto) 0.2, Basophils # (Auto) 0.0, Immature Granulocyte # (Auto) 0.0, Sodium Level 141, Potassium Level 3.5L, Chloride Level 103, Carbon Dioxide Level 28, Anion Gap 10, Blood Urea Nitrogen 10, Creatinine 0.71, Estimat Glomerular Filtration Rate > 60, BUN/Creatinine Ratio 14, Glucose Level 81, Calcium Level 8.5 04/24/21 07:44: Glucometer 119H Microbiology 04/20/21 MRSA Screen - Final, Complete MRSA not isolated Patient resulted labs reviewed. Pending Labs Laboratory Tests 04/24/21 03:58: Glucometer 84 04/24/21 05:55: White Blood Count 7.9, Red Blood Count 4.05, Hemoglobin 11.1, Hematocrit 34, Mean Corpuscular Volume 84, Mean Corpuscular Hemoglobin 27, Mean Corpuscular Hemoglobin Concent 33, Red Cell Distribution Width 13.3, Platelet Count 271, Mean Platelet Volume 9.0, Immature Granulocyte % (Auto) 0, Neutrophils (%) (Auto) 62, Lymphocytes (%) (Auto) 28, Monocytes (%) (Auto) 8, Eosinophils (%) (Auto) 2, Basophils (%) (Auto) 0, Neutrophils # (Auto) 4.9, Lymphocytes # (Auto) 2.2, Monocytes # (Auto) 0.6, Eosinophils # (Auto) 0.2, Basophils # (Auto) 0.0, Immature Granulocyte # (Auto) 0.0, Sodium Level 141, Potassium Level 3.5, Chloride Level 103, Carbon Dioxide Level 28, Anion Gap 10, Blood Urea Nitrogen 10, Creatinine 0.71, Estimat Glomerular Filtration Rate > 60, BUN/Creatinine Ratio 14, Glucose Level 81, Calcium Level 8.5 04/24/21 07:44: Glucometer 119 Discussion & Recommendations Discharge Planning: >30 minutes discharge planning Discharge Home Medications: Active Scripts Active Reported Lisinopril 20 Mg Tablet 20 Mg PO DAILY Metoclopramide HCl 10 Mg Tablet 10 Mg PO BIDAC Pantoprazole Sodium 40 Mg Tablet.dr 40 Mg PO DAILY Novolog (Insulin Aspart) 100 Unit/1 Ml Susp Unit SQ TIDAC USES 2 UNITS PER EVERY CARB Levemir (Insulin Determir) 1,000 Units/10 Ml Soln 10 Units SQ HS Instructions to patient/family Please see electronic discharge instructions given to patient. ROSITA PINEDA MD Apr 24, 2021 10:05
== END 2021-04-24 13:28 | disposition home or self-care (01) | DRG 638 ==
LOC: EDUNIT# 12:20 → ER 12:22 → ICU 14:47 → OBSVTOIN 17:15 → 4TH 04-23 08:48
PROVIDERS: ADMIT Family Medicine; ATTEND Family Medicine
DX: E10.10 Type 1 diabetes mellitus with ketoacidosis without coma (principal); I42.9 Cardiomyopathy, unspecified; E10.43 Type 1 diabetes mellitus with diabetic autonomic (poly)neuropathy; K31.84 Gastroparesis; R11.2 Nausea with vomiting, unspecified; R10.13 Epigastric pain; I10 Essential (primary) hypertension; D72.829 Elevated white blood cell count, unspecified; F41.9 Anxiety disorder, unspecified; E10.319 Type 1 diabetes mellitus with unspecified diabetic retinopathy without macular edema; Z79.4 Long term (current) use of insulin; Z79.899 Other long term (current) drug therapy
CPT/HCPCS: 36415; 80048; 80053; 81000; 82010; 82800; 82947; 83036; 83690; 83735; 84100; 85007; 85025; 85027; 87081; 93005; 99291

== ENCOUNTER 2021-06-18 14:59 | Emergency (ER) | payer SELFPAY ==
[~2021-06-18] VITALS: Ht 180.3 cm; Wt 56.7 kg
[2021-06-18] MEDS ORDERED: LACTATED RINGERS 1,000 ML IV SCH ×2 (15:15→16:45)
[2021-06-18 15:35] LABS: BASOPHILS % (AUTO) 0 % (0-10); EOSINOPHILS # (AUTO) 0.1 10^3/uL (0.0-0.3); EOSINOPHILS % (AUTO) 1 % (0-10); HEMATOCRIT 39 % (40-54); HEMOGLOBIN 13.1 g/dL (13.3-17.7); LYMPHOCYTES # (AUTO) 1.9 10^3/uL (1.0-4.0); LYMPHOCYTES % (AUTO) 17 % (12-44); MEAN CORPUSCULAR HEMOGLOBIN 27 pg (25-34); MEAN CORPUSCULAR HGB CONC 34 g/dL (32-36); MEAN CORPUSCULAR VOLUME 82 fL (80-99); MEAN PLATELET VOLUME 8.9 fL (9.0-12.2); MONOCYTES # (AUTO) 0.6 10^3/uL (0.0-1.0); MONOCYTES % (AUTO) 6 % (0-12); NEUTROPHILS # (AUTO) 8.4 10^3/uL (1.8-7.8); NEUTROPHILS % (AUTO) 76 % (42-75); PLATELET COUNT 325 10^3/uL (130-400); WHITE BLOOD COUNT 11.1 10^3/uL (4.3-11.0)
[2021-06-18 15:39] LABS: ALBUMIN 4.3 GM/DL (3.2-4.5)
[2021-06-18 15:40] LABS: POTASSIUM 3.4 MMOL/L (3.6-5.0)
[2021-06-18 15:41] LABS: CALCIUM 10.3 MG/DL (8.5-10.1)
[2021-06-18 15:42] LABS: TOTAL PROTEIN 7.9 GM/DL (6.4-8.2)
[2021-06-18 15:44] LABS: BILIRUBIN,TOTAL 0.4 MG/DL (0.1-1.0)
[2021-06-18] MEDS ORDERED: ONDANSETRON 4 MG/2 ML (SDV) Z0FRAN IVP ONE (15:45)
--- NOTE | 2021-06-18 15:45 | ED General ---
General Chief Complaint: Glucose Problems Stated Complaint: DKA Source of Information: Patient Exam Limitations: No Limitations (NINOSKA LANE APRN) History of Present Illness Date Seen by Provider: Jun 18, 2021 Time Seen by Provider: 15:44 Initial Comments To ER with concerns of DKA. He had a blood sugar of 399 this morning. Here he is a type I diabetic. Has had nausea and vomiting. Timing/Duration: 1-2 Days Severity: Moderate Associated Systoms: Nausea/Vomiting (NINOSKA LANE APRN) Allergies and Home Medications Allergies Coded Allergies: Penicillins (Verified Allergy, Unknown, 05/23/06) Patient Home Medication List Home Medication List Reviewed: Yes (NINOSKA LANE APRN) Insulin Aspart (Novolog) 100 Unit/1 Ml Susp, UNIT SQ TIDAC, (Reported) Entered as Reported by: NICOLLE MUNSON on 11/28/19 1021 Insulin Determir (Levemir) 1,000 Units/10 Ml Soln, 10 UNITS SQ HS, (Reported) Entered as Reported by: NICOLLE MUNSON on 11/28/19 1021 Lisinopril (Lisinopril) 20 Mg Tablet, 20 MG PO DAILY, (Reported) Entered as Reported by: YUMIKO SNOW on 02/22/21 1204 Metoclopramide HCl (Metoclopramide HCl) 10 Mg Tablet, 10 MG PO BIDAC, (Reported) Entered as Reported by: DANNIE PERDOMO on 01/11/21 0952 Pantoprazole Sodium (Pantoprazole Sodium) 40 Mg Tablet.dr, 40 MG PO DAILY, (Reported) Entered as Reported by: DANNIE PERDOMO on 01/11/21 0952 Review of Systems Review of Systems Constitutional: see HPI EENTM: see HPI Respiratory: no symptoms reported Cardiovascular: no symptoms reported Gastrointestinal: nausea, vomiting Genitourinary: no symptoms reported Musculoskeletal: no symptoms reported Skin: no symptoms reported Psychiatric/Neurological: No Symptoms Reported Hematologic/Lymphatic: No Symptoms Reported Immunological/Allergic: no symptoms reported (NINOSKA LANE APRN) Past Kmnsrvg-Mbwzfx-Dtwzwz Hx Immunizations Up To Date Tetanus Booster (TDap): Unknown PED Vaccines UTD: No (NINOSKA LANE APRN) Seasonal Allergies Seasonal Allergies: No (NINOSKA LANE APRN) Past Medical History Surgeries: No Respiratory: Yes Pneumonia Currently Using CPAP: No Currently Using BIPAP: No Cardiac: Yes (CARDIOMYOPATHY DX 2017) Cardiomyopathy Neurological: No Reproductive Disorders: No Sexually Transmitted Disease: No HIV/AIDS: No Genitourinary: No Gastrointestinal: Yes (GASTROPARESIS) Musculoskeletal: No Endocrine: Yes (DX AGE 11, [place] 2001; MULTIPLE ADMITS FOR DKA) Diabetes, Insulin dep Cancer: No Did You Recieve Any Treatments: No Psychosocial: No Integumentary: Yes (WOUNDS TO LOWER LEGS-- REQUIRED WOUND CARE CLINIC TREATMENT) Blood Disorders: No Adverse Reaction/Blood Tranf: No (NINOSKA LANE APRN) Family Medical History Cardiovascular disease 19 FATHER Hypertension 19 FATHER Heart Disease, Cancer, Hypertension (NINOSKA LANE APRN) Physical Exam Vital Signs Vital Signs - First Documented 06/18/21 06/18/21 15:10 19:55 Temp 35.8 Pulse 99 Resp 18 B/P (MAP) 166/101 (122) Pulse Ox 94 O2 Delivery Room Air (ANATOLY SHAFER MD) Vital Signs Capillary Refill : (NINOSKA LANE APRN) Height, Weight, BMI Height: 5'11.00" Weight: 126lbs. 0.0oz. 57.691800ct; 17.03 BMI Method:Stated General Appearance: No Apparent Distress, WD/WN, Thin Eyes: Bilateral Eye Normal Inspection, Bilateral Eye PERRL, Bilateral Eye EOMI Neck: Full Range of Motion, Normal Inspection Respiratory: Normal Breath Sounds, No Accessory Muscle Use, No Respiratory Distress Gastrointestinal: Normal Bowel Sounds, Non Tender, Soft Extremity: Normal Capillary Refill, Normal Inspection Neurologic/Psychiatric: Alert, Oriented x3 Skin: Normal Color, Warm/Dry (NINOSKA LANE APRN) Progress/Results/Core Measures Suspected Sepsis SIRS Temperature: Pulse: Respiratory Rate: Laboratory Tests 06/18/21 15:20: White Blood Count 11.1H Blood Pressure / Mean: Laboratory Tests 06/18/21 15:20: Creatinine 0.83, Platelet Count 325, Total Bilirubin 0.4 (NINOSKA LANE APRN) Results/Orders Lab Results Laboratory Tests Test 06/18/21 15:10 06/18/21 15:20 06/18/21 15:39 06/18/21 17:21 Range/Units Glucometer 120 H 70-110 MG/DL White Blood Count 11.1 H 4.3-11.0 10^3/uL Red Blood Count 4.78 4.30-5.52 10^6/uL Hemoglobin 13.1 L 13.3-17.7 g/dL Hematocrit 39 L 40-54 % Mean Corpuscular Volume 82 80-99 fL Mean Corpuscular Hemoglobin 27 25-34 pg Mean Corpuscular Hemoglobin Concent 34 32-36 g/dL Red Cell Distribution Width 13.6 10.0-14.5 % Platelet Count 325 130-400 10^3/uL Mean Platelet Volume 8.9 L 9.0-12.2 fL Immature Granulocyte % (Auto) 0 % Neutrophils (%) (Auto) 76 H 42-75 % Lymphocytes (%) (Auto) 17 12-44 % Monocytes (%) (Auto) 6 0-12 % Eosinophils (%) (Auto) 1 0-10 % Basophils (%) (Auto) 0 0-10 % Neutrophils # (Auto) 8.4 H 1.8-7.8 10^3/uL Lymphocytes # (Auto) 1.9 1.0-4.0 10^3/uL Monocytes # (Auto) 0.6 0.0-1.0 10^3/uL Eosinophils # (Auto) 0.1 0.0-0.3 10^3/uL Basophils # (Auto) 0.0 0.0-0.1 10^3/uL Immature Granulocyte # (Auto) 0.0 0.0-0.1 10^3/uL Sodium Level 141 135-145 MMOL/L Potassium Level 3.4 L 3.6-5.0 MMOL/L Chloride Level 105 98-107 MMOL/L Carbon Dioxide Level 21 21-32 MMOL/L Anion Gap 15 H 5-14 MMOL/L Blood Urea Nitrogen 9 7-18 MG/DL Creatinine 0.83 0.60-1.30 MG/DL Estimat Glomerular Filtration Rate 107 BUN/Creatinine Ratio 11 Glucose Level 115 H 70-105 MG/DL Calcium Level 10.3 H 8.5-10.1 MG/DL Corrected Calcium 10.1 8.5-10.1 MG/DL Total Bilirubin 0.4 0.1-1.0 MG/DL Aspartate Amino Transf (AST/SGOT) 24 5-34 U/L Alanine Aminotransferase (ALT/SGPT) 27 0-55 U/L Alkaline Phosphatase 106 40-136 U/L Total Protein 7.9 6.4-8.2 GM/DL Albumin 4.3 3.2-4.5 GM/DL Beta-Hydroxybutyrate (Chem panel) 0.08 0.00-0.27 MMOL/L Arterial Blood pH 7.54 H 7.37-7.43 Urine Color YELLOW Urine Clarity CLEAR Urine pH 6.0 5-9 Urine Specific [place] 1.010 L 1.016-1.022 Urine Protein TRACE H NEGATIVE Urine Glucose (UA) 3+ H NEGATIVE Urine Ketones NEGATIVE NEGATIVE Urine Nitrite NEGATIVE NEGATIVE Urine Bilirubin NEGATIVE NEGATIVE Urine Urobilinogen 0.2 < = 1.0 MG/DL Urine Leukocyte Esterase NEGATIVE NEGATIVE Urine RBC (Auto) 2+ H NEGATIVE Urine RBC 2-5 H /HPF Urine WBC 0-2 /HPF Urine Squamous Epithelial Cells RARE /HPF Urine Crystals NONE /LPF Urine Bacteria TRACE /HPF Urine Casts NONE /LPF Urine Mucus SMALL H /LPF Urine Culture Indicated NO Urine Opiates Screen NEGATIVE NEGATIVE Urine Oxycodone Screen NEGATIVE NEGATIVE Urine Methadone Screen NEGATIVE NEGATIVE Urine Propoxyphene Screen NEGATIVE NEGATIVE Urine Barbiturates Screen NEGATIVE NEGATIVE Ur Tricyclic Antidepressants Screen NEGATIVE NEGATIVE Urine Phencyclidine Screen NEGATIVE NEGATIVE Urine Amphetamines Screen NEGATIVE NEGATIVE Urine Methamphetamines Screen NEGATIVE NEGATIVE Urine Benzodiazepines Screen NEGATIVE NEGATIVE Urine Cocaine Screen NEGATIVE NEGATIVE Urine Cannabinoids Screen POSITIVE H NEGATIVE (ANATOLY SHAFER MD) Vital Signs/I&O 06/18/21 06/18/21 15:10 19:55 Temp 35.8 Pulse 99 99 Resp 18 18 B/P (MAP) 166/101 (122) 168/105 Pulse Ox 94 97 O2 Delivery Room Air 06/19/21 00:00 Intake Total 2000 ml Balance 2000 ml (ANATOLY SHAFER MD) Vital Signs/I&O Capillary Refill : (NINOSKA LANE APRN) Departure Impression Primary Impression: Nausea & vomiting Disposition: 01 HOME, SELF-CARE Condition: Stable Departure-Patient Inst. Decision time for Depature: 17:25 ([address] APRN) Referrals: [facility] (PCP/Family) Primary Care Physician Patient Instructions: Nausea and Vomiting, Adult Add. Discharge Instructions: All discharge instructions reviewed with patient and/or family. Voiced understanding. ATTENDING PHYSICIAN NOTE: I was physically present as attending physician in the emergency department during the care of this patient, but I was not directly involved in the decision making or delivery of care for this patient. (ANATOLY SHAFER MD) NINOSKA LANE APRN Jun 18, 2021 15:45 ANATOLY SHAFER MD Jun 19, 2021 07:34
[2021-06-18 15:46] LABS: CREATININE SERUM 0.83 MG/DL (0.60-1.30)
[2021-06-18] MEDS ORDERED: meTOprolol 5 MG/5 ML (LOPRESSOR) VIAL IV ONE (16:15)
[2021-06-18 17:31] LABS: BILIRUBIN,URINE NEGATIVE (NEGATIVE); CLARITY,URINE CLEAR; COLOR,URINE YELLOW; GLUCOSE, URINE (UA) 3+ (NEGATIVE); KETONES,URINE NEGATIVE (NEGATIVE); LEUKOCYTE ESTERASE ,URINE NEGATIVE (NEGATIVE); NITRITE,URINE NEGATIVE (NEGATIVE); PROTEIN,URINE TRACE (NEGATIVE)
[2021-06-18 17:40] LABS: BACTERIA,URINE TRACE /HPF; SQUAMOUS EPITHELIAL CELL,UR RARE /HPF; WBC,URINE 0-2 /HPF
[2021-06-18 17:41] LABS: AMPHETAMINE SCREEN, URINE NEGATIVE (NEGATIVE); BENZODIAZEPINES SCREEN URINE NEGATIVE (NEGATIVE); COCAINE SCREEN URINE NEGATIVE (NEGATIVE); METHAMPHETAMINE SCREEN URINE S NEGATIVE (NEGATIVE)
[2021-06-18 17:42] LABS: BARBITURATE SCREEN URINE NEGATIVE (NEGATIVE); CANNABINOID SCREEN, URINE POSITIVE (NEGATIVE); METHADONE STAT NEGATIVE (NEGATIVE); OPIATE SCREEN URINE NEGATIVE (NEGATIVE); OXYCODONE STAT NEGATIVE (NEGATIVE); PROPOXYPHENE STAT NEGATIVE (NEGATIVE); TRICYCLIC ANTIDEPRESSANTS SCRE NEGATIVE (NEGATIVE)
[2021-06-18] MEDS ORDERED: DROPERIDOL 5 MG/2 ML (INAPSINE) AMP IV ONE ×2 (17:45→18:30)
[2021-06-18] MEDS ORDERED: LORazepam INJ 2 MG/ML (ATIVAN) VIAL IVP PRN (19:15)
[2021-06-18 19:55] VITALS: BP 168/105
== END 2021-06-18 19:55 | disposition home or self-care (01) ==
LOC: EDUNIT# 14:59 → ER 15:01
DX: R11.2 Nausea with vomiting, unspecified (principal); E10.9 Type 1 diabetes mellitus without complications
CPT/HCPCS: 36415; 80053; 80306; 81000; 82010; 82800; 82947; 85025; 93005

== ENCOUNTER 2021-08-18 04:28 | Inpatient (IN) | payer SELFPAY ==
[~2021-08-18] VITALS: Ht 180.3 cm; Wt 50.9 kg
[2021-08-18] MEDS ORDERED: inSUlin (REGULAR) HUMAN 1 UNIT/0.01 ML (CHARGE PER UNIT) IV ONE ×3 (04:45→06:00)
[2021-08-18] MEDS ORDERED: FAMOTIDINE 20MG/2ML IV (PEPCID) IVP ONE (04:45)
[2021-08-18] MEDS ORDERED: NS IV 1000 ML 1,000 ML IV SCH ×2 (04:45→07:30)
[2021-08-18] MEDS ORDERED: ONDANSETRON 4 MG/2 ML (SDV) Z0FRAN IVP ONE ×2 (04:45→06:30)
[2021-08-18] MEDS ORDERED: BSS 15 ML IR PRN (04:45)
[2021-08-18 04:52] LABS: BASOPHILS % (AUTO) 0 % (0-10); EOSINOPHILS % (AUTO) 0 % (0-10); HEMATOCRIT 35 % (40-54); HEMOGLOBIN 11.6 g/dL (13.3-17.7); LYMPHOCYTES # (AUTO) 2.8 10^3/uL (1.0-4.0); LYMPHOCYTES % (AUTO) 14 % (12-44); MEAN CORPUSCULAR HEMOGLOBIN 28 pg (25-34); MEAN CORPUSCULAR HGB CONC 33 g/dL (32-36); MEAN CORPUSCULAR VOLUME 83 fL (80-99); MEAN PLATELET VOLUME 9.3 fL (9.0-12.2); MONOCYTES # (AUTO) 0.9 10^3/uL (0.0-1.0); MONOCYTES % (AUTO) 5 % (0-12); NEUTROPHILS # (AUTO) 15.6 10^3/uL (1.8-7.8); NEUTROPHILS % (AUTO) 80 % (42-75); PLATELET COUNT 425 10^3/uL (130-400); WHITE BLOOD COUNT 19.5 10^3/uL (4.3-11.0)
[2021-08-18 05:11] LABS: ALBUMIN 3.9 GM/DL (3.2-4.5); BILIRUBIN,TOTAL 0.4 MG/DL (0.1-1.0); CALCIUM 9.3 MG/DL (8.5-10.1); CREATININE SERUM 2.52 MG/DL (0.60-1.30); MAGNESIUM 2.1 MG/DL (1.6-2.4); POTASSIUM 4.1 MMOL/L (3.6-5.0); TOTAL PROTEIN 6.7 GM/DL (6.4-8.2)
[2021-08-18] MEDS ORDERED: SODIUM BICARB 8.4% 50 MEQ/50 ML (ABBOTT) SYR IV ONE (05:15)
[2021-08-18] MEDS ORDERED: LACTATED RINGERS 1,000 ML IV ONE ×2 (05:15→06:00)
[2021-08-18 05:23] LABS: ACANTHOCYTES MARKED; LYMPHOCYTES % (MANUAL) 18 %; MONOCYTES % (MANUAL) 3 %; NEUTROPHILS % (MANUAL) 79 %
[2021-08-18 05:36] LABS: ABG BASE EXCESS -17.9 MMOL/L (-2.5-2.5); ABG OXYGEN SATURATION 92 % (94-100); ABG PO2 65 MMHG (79-93)
[2021-08-18 05:38] LABS: ABG PH 7.28 (7.37-7.43)
[2021-08-18 05:39] LABS: ABG PCO2 18 MMHG (35-45); ABG TCO2 8.4 MMOL/L (21.0-31.0); ALLENS TEST YES-POS; INSPIRED O2 ROOM AIR; VENTILATOR NO
[2021-08-18 05:40] LABS: PATIENT TEMP 36.7
--- NOTE | 2021-08-18 05:59 | Diagnostic Imaging Report ---
INDICATION: Sepsis. Comparison with 02/23/2021. FINDINGS: The lungs are well-aerated. No infiltrates have developed. The heart is not enlarged. No pulmonary edema or hilar adenopathy. No pneumothorax or pleural effusion. No bony abnormalities. IMPRESSION: Normal portable chest. Dictated by: Dictated on workstation # [id number]
--- NOTE | 2021-08-18 06:03 | ED General ---
General Chief Complaint: Glucose Problems Stated Complaint: NAUSEA,VOMITING Nursing Triage Note: TO ED VIA [facility] TO ROOM 7. PT WAS "NOT FEELING WELL ALL DAY" AND C/O N/V. PT IS TYPE 1 DIABETIC AND BLOOD SUGARS HAVE BEEN IN 300s FOR A FEW DAYS AND BLOOD SUGAR WAS 400s AT HOME EARLIER TONIGHT AND HE TOOK 10 UNITS INSULIN. FOR EMS BLOOD SUGAR 153 MG/DL. EN ROUTE SBP 60-70s. Source of Information: Patient, EMS, Old Records Exam Limitations: No Limitations (ANATOLY SHAFER MD) History of Present Illness Date Seen by Provider: Aug 18, 2021 Time Seen by Provider: 04:30 Initial Comments This 31-year-old gentleman with type 1 diabetes presents to the emergency room via EMS with about 24 hours of nausea and vomiting. He reports his blood sugar was in the 400s at home earlier. He took 10 units of NovoLog and EMS registered a blood sugar of 156. A liter of normal saline is infusing on arrival. Patient is tachypneic and appears very dry. He denies any symptoms of acute infectious illness such as fever, diarrhea, cough, etc. Systolic blood pressure is in the 60s and 70s upon arrival. Patient has a long history of numerous admissions for DKA. He also has consistent marijuana use. Patient was becoming progressively weak at home and was unable to get up off the floor. That is when he called emergency services. (ANATOLY SHAFER MD) Allergies and Home Medications Allergies Coded Allergies: Penicillins (Verified Allergy, Unknown, 05/23/06) Patient Home Medication List Home Medication List Reviewed: Yes (ANATOLY SHAFER MD) Insulin Aspart (Novolog) 100 Unit/1 Ml Susp, UNIT SQ TIDAC, (Reported) Entered as Reported by: NICOLLE MUNSON on 11/28/19 1021 Last Action: Reviewed Insulin Determir (Levemir) 1,000 Units/10 Ml Soln, 15 UNITS SQ HS, (Reported) Entered as Reported by: NICOLLE MUNSON on 11/28/19 1021 Last Action: Reviewed Lisinopril (Lisinopril) 10 Mg Tablet, 10 MG PO DAILY, (Reported) Entered as Reported by: YUMIKO SNOW on 08/18/21 1159 Last Action: Reviewed Metoclopramide HCl (Metoclopramide HCl) 10 Mg Tablet, 10 MG PO BIDAC, (Reported) Entered as Reported by: DANNIE PERDOMO on 01/11/21951 Last Action: Reviewed Pantoprazole Sodium (Pantoprazole Sodium) 40 Mg Tablet.dr, 40 MG PO DAILY, (Reported) Entered as Reported by: DANNIE PERDOMO on 01/11/21951 Last Action: Reviewed Discontinued Medications Lisinopril (Lisinopril) 20 Mg Tablet, 20 MG PO DAILY, (Reported) Discontinued Reason: No Longer Taking Entered as Reported by: YUMIKO SNOW on 02/22/21 1204 Last Action: Discontinued Review of Systems Review of Systems Constitutional: see HPI, weakness EENTM: other (Mucous membranes very dry) Respiratory: see HPI Cardiovascular: see HPI Gastrointestinal: see HPI Genitourinary: no symptoms reported Musculoskeletal: no symptoms reported Skin: no symptoms reported Psychiatric/Neurological: No Symptoms Reported Hematologic/Lymphatic: No Symptoms Reported (ANATOLY SHAFER MD) Past Xymwzmc-Utkgmu-Hxhzvp Hx Patient Social History Tobacco Use?: No Use of E-Cig and/or Vaping dev: Yes E-Cig or Vaping type used: Marijuana Substance use?: Yes Substance type: Marijuana Alcohol Use?: No Pt feels they are or have been: No (ANATOLY SHAFER MD) Immunizations Up To Date Tetanus Booster (TDap): Unknown PED Vaccines UTD: No First/Initial COVID19 Vaccinat: 01/15/21 Second COVID19 Vaccination Pierre: 02/04/21 COVID19 Vaccine Pharmacist Apprentice: MODERNPaul (ANATOLY SHAFER MD) Seasonal Allergies Seasonal Allergies: No (ANATOLY SHAFER MD) Past Medical History Surgery/Hospitalization HX: TYPE 1 DM HTN Surgeries: No Respiratory: Yes Pneumonia Currently Using CPAP: No Currently Using BIPAP: No Cardiac: Yes (CARDIOMYOPATHY DX 2017) Cardiomyopathy, Hypertension Neurological: No Reproductive Disorders: No Sexually Transmitted Disease: No HIV/AIDS: No Genitourinary: No Gastrointestinal: Yes (GASTROPARESIS) Musculoskeletal: No Endocrine: Yes (DX AGE 11, [place] 2001; MULTIPLE ADMITS FOR DKA) Diabetes, Insulin dep Cancer: No Did You Recieve Any Treatments: No Psychosocial: Yes (Frequent marijuana use) Integumentary: Yes (WOUNDS TO LOWER LEGS-- REQUIRED WOUND CARE CLINIC TREATMENT) Blood Disorders: No Adverse Reaction/Blood Tranf: No (ANATOLY SHAFER MD) Family Medical History Cardiovascular disease 19 FATHER Hypertension 19 FATHER Heart Disease, Cancer, Hypertension (ANATOLY SHAFER MD) Physical Exam Vital Signs Vital Signs - First Documented (GARIMA WARREN MD) Vital Signs Capillary Refill : Less Than 3 Seconds (ANATOLY SHAFER MD) Height, Weight, BMI Height: 5'11.00" Weight: 126lbs. 0.0oz. 57.151190jm; BMI Method:Stated General Appearance: WD/WN, Cachetic, Moderate Distress HEENT: PERRL/EOMI, Other (Mucous membranes extremely dry) Neck: Normal Inspection Respiratory: Lungs Clear, Normal Breath Sounds, No Accessory Muscle Use, Other (Tachypneic) Cardiovascular: No Edema, No Murmur, Tachycardia Gastrointestinal: Normal Bowel Sounds, Non Tender, Soft Extremity: Normal Inspection, No Pedal Edema Neurologic/Psychiatric: Alert, No Motor/Sensory Deficits, specimen transporter II-XII Norm as Tested, Other (Generalized weakness) Skin: Normal Color, Warm/Dry (ANATOLY SHAFER MD) Focused Exam Lactate Level 08/18/21 05:25: Lactic Acid Level 5.06*H (GARIMA WARREN MD) Lactic Acid Level Laboratory Tests Test 08/18/21 05:25 Lactic Acid Level 5.06 MMOL/L (0.50-2.00) *H (GARIMA WARREN MD) Progress/Results/Core Measures Suspected Sepsis SIRS Temperature: Pulse: 128 Respiratory Rate: 34 Laboratory Tests 08/18/21 04:42: White Blood Count 19.5H Blood Pressure 76 /44 Mean: 55 08/18/21 05:25: Lactic Acid Level 5.06*H Laboratory Tests 08/18/21 04:42: Platelet Count 425H, Total Bilirubin 0.4 (ANATOLY SHAFER MD) Results/Orders Lab Results Laboratory Tests Test 08/18/21 04:41 08/18/21 04:42 08/18/21 05:05 08/18/21 05:25 Range/Units Glucometer 331 H 360 H 70-110 MG/DL White Blood Count 19.5 H 4.3-11.0 10^3/uL Red Blood Count 4.20 L 4.30-5.52 10^6/uL Hemoglobin 11.6 L 13.3-17.7 g/dL Hematocrit 35 L 40-54 % Mean Corpuscular Volume 83 80-99 fL Mean Corpuscular Hemoglobin 28 25-34 pg Mean Corpuscular Hemoglobin Concent 33 32-36 g/dL Red Cell Distribution Width 12.9 10.0-14.5 % Platelet Count 425 H 130-400 10^3/uL Mean Platelet Volume 9.3 9.0-12.2 fL Immature Granulocyte % (Auto) 1 % Neutrophils (%) (Auto) 80 H 42-75 % Lymphocytes (%) (Auto) 14 12-44 % Monocytes (%) (Auto) 5 0-12 % Eosinophils (%) (Auto) 0 0-10 % Basophils (%) (Auto) 0 0-10 % Neutrophils # (Auto) 15.6 H 1.8-7.8 10^3/uL Lymphocytes # (Auto) 2.8 1.0-4.0 10^3/uL Monocytes # (Auto) 0.9 0.0-1.0 10^3/uL Eosinophils # (Auto) 0.0 0.0-0.3 10^3/uL Basophils # (Auto) 0.0 0.0-0.1 10^3/uL Immature Granulocyte # (Auto) 0.2 H 0.0-0.1 10^3/uL Neutrophils % (Manual) 79 % Lymphocytes % (Manual) 18 % Monocytes % (Manual) 3 % Acanthocytes MARKED Sodium Level 141 135-145 MMOL/L Potassium Level 4.1 3.6-5.0 MMOL/L Chloride Level 100 98-107 MMOL/L Carbon Dioxide Level 7 *L 21-32 MMOL/L Anion Gap 34 H 5-14 MMOL/L Blood Urea Nitrogen 26 H 7-18 MG/DL Creatinine 2.52 H 0.60-1.30 MG/DL Estimat Glomerular Filtration Rate 30 BUN/Creatinine Ratio 10 Glucose Level 389 H 70-105 MG/DL Calcium Level 9.3 8.5-10.1 MG/DL Corrected Calcium 9.4 8.5-10.1 MG/DL Magnesium Level 2.1 1.6-2.4 MG/DL Total Bilirubin 0.4 0.1-1.0 MG/DL Aspartate Amino Transf (AST/SGOT) 10 5-34 U/L Alanine Aminotransferase (ALT/SGPT) 9 0-55 U/L Alkaline Phosphatase 91 40-136 U/L C-Reactive Protein High Sensitivity 0.33 0.00-0.50 MG/DL Total Protein 6.7 6.4-8.2 GM/DL Albumin 3.9 3.2-4.5 GM/DL Lipase 30 8-78 U/L Lactic Acid Level 5.06 *H 0.50-2.00 MMOL/L Test 08/18/21 05:30 08/18/21 05:49 Range/Units Blood Gas Puncture Site LEFT RADIAL Blood Gas Patient Temperature 36.7 Arterial Blood pH 7.28 *L 7.37-7.43 Arterial Blood Partial Pressure CO2 18 *L 35-45 MMHG Arterial Blood Partial Pressure O2 65 L 79-93 MMHG Arterial Blood HCO3 8 *L 23-27 MMOL/L Arterial Blood Total CO2 8.4 *L 21.0-31.0 MMOL/L Arterial Blood Oxygen Saturation 92 L 94-100 % Arterial Blood Base Excess -17.9 L -2.5-2.5 MMOL/L Bony Test YES-POS Blood Gas Ventilator Setting NO Blood Gas Inspired Oxygen ROOM AIR Glucometer 304 H 70-110 MG/DL (GARIMA WARREN MD) My Orders Orders - GARIMA WARREN MD Cefepime Injection (Maxipime Injection) (08/18/21 06:30) Ondansetron Injection (Zofran Injectio (08/18/21 06:30) (GARIMA WARREN MD) Medications Given in ED Current Medications Medications Dose Ordered Sig/Luis Route Start Time Stop Time Status Last Admin Dose Admin Balanced Salt Solution 15 ml PRN PRN IR 08/18/21 04:45 08/18/21 04:48 15 ML Famotidine 20 mg ONCE ONCE IVP 08/18/21 04:45 08/18/21 04:46 DC 08/18/21 04:48 20 MG Insulin Human Regular 5 unit ONCE ONCE IV 08/18/21 04:45 08/18/21 04:46 DC 08/18/21 04:48 5 UNIT Insulin Human Regular 5 unit ONCE ONCE IV 08/18/21 05:15 08/18/21 05:16 DC 08/18/21 05:20 5 UNIT Insulin Human Regular 5 unit ONCE ONCE IV 08/18/21 06:00 08/18/21 06:01 DC 08/18/21 06:12 5 UNIT Lactated Ringer's 1,000 ml @ 0 mls/hr Q0M ONCE IV 08/18/21 05:15 08/18/21 05:16 DC 08/18/21 05:20 1,000 MLS/HR Lactated Ringer's 1,000 ml @ 250 mls/hr Q4H ONCE IV 08/18/21 06:00 08/18/21 09:59 08/18/21 06:12 250 MLS/HR Ondansetron HCl 4 mg ONCE ONCE IVP 08/18/21 04:45 08/18/21 04:46 DC 08/18/21 04:48 4 MG Sodium Bicarbonate 50 meq ONCE ONCE IV 08/18/21 05:15 08/18/21 05:16 DC 08/18/21 05:19 50 MEQ (GARIMA WARREN MD) Vital Signs/I&O 08/18/21 08/18/21 04:29 04:29 Temp 36.7 Pulse 128 Resp 34 B/P (MAP) 76/44 (55) Pulse Ox 100 O2 Delivery Room Air Room Air (GARIMA WARREN MD) Vital Signs/I&O Capillary Refill : Less Than 3 Seconds (ANATOLY SHAFER MD) Blood Pressure Mean: 55 Point of Care Testing Finger Stick Blood Glucose: 309 Blood Glucose Action Taken: 0549 (ANATOLY SHAFER MD) Progress Note : Time: 06:01 Progress Note Patient has received a total of 10 units of IV insulin in the ER and blood sugars are stable in the 300s. A third dose of insulin 5 units IV has been ordered. He has received a total of 3 L of IV fluids, 1 normal saline liter started by EMS, 1 normal saline in the ER, and 1 LR started in the ER. A 4th liter of LR is now being run at 250 mL/h. Patient also received an amp of sodium bicarb. He is more alert at this time than on arrival. Blood cultures and lactic acid were obtained but it is unlikely patient is septic as his CRP is low. We are awaiting his bed to be available in the ICU. Care of the patient is being transitioned to Dr. Warren at this time. Blood pressures have normalized. Patient is still tachycardic. GI symptoms were treated with Zofran and Pepcid. (ANATOLY SHAFER MD) Progress Note : Progress Note Upon assuming care of the patient, he began vomiting so received another dose of Zofran. Bed became available in the intensive care unit so I contacted Dr. Knight who will accept his admission as an inpatient. (GARIMA WARREN MD) Diagnostic Imaging Diagonstic Imaging: Xray Plain Films/CT/US/NM/MRI: chest Comments NAME: CHEMO WEISS [facility] REC#: [id number] PT STATUS: REG ER : 1990 PHYSICIAN: ANATOLY SHAFER MD ADMIT DATE: 08/18/21/ER Draf t Date of Exam:08/18/21 CHEST 1 VIEW, AP/PA ONLY INDICATION: Sepsis. Comparison with 02/23/2021. FINDINGS: The lungs are well-aerated. No infiltrates have developed. The heart is not enlarged. No pulmonary edema or hilar adenopathy. No pneumothorax or pleural effusion. No bony abnormalities. IMPRESSION: Normal portable chest. Dictated on workstation # [id number] Dict: 08/18/21 0557 Trans: 08/18/21 0559 [id number] [id number] Interpreted by: DAVID BROWN MD (ANATOLY SHAFER MD) Departure Impression Primary Impression: DKA (diabetic ketoacidoses) Disposition: ADMITTED INPATIENT Condition: Improved Admissions Decision to Admit Reason: Admit from ER (General) Decision to Admit/Date: Aug 18, 2021 Time/Decision to Admit Time: 04:45 (ANATOLY SHAFER MD) Decision to Admit Reason: Admit from ER (General) (GARIMA WARREN MD) Departure-Patient Inst. Referrals: [facility] (PCP/Family) Primary Care Physician ANATOLY SHAFER MD Aug 18, 2021 06:03 GARIMA WARREN MD Aug 18, 2021 06:35
[2021-08-18] MEDS ORDERED: 1/2 NS IV SOLUTION 1,000 ML IV ONE (06:18)
[2021-08-18] MEDS ORDERED: D5 1/2 NS 1000 ML IV SOLUTION 1,000 ML IV ONE (06:19)
[2021-08-18] MEDS ORDERED: POTASSIUM CL 10MEQ/50ML IVPB 50 ML IV ONE (06:19)
[2021-08-18] MEDS ORDERED: CEFEPIME INJECTION 1,000 MG in WATER (STERILE) FOR INJECTION 10 ML IV ONE (06:30)
[2021-08-18 06:57] LABS: CALCIUM 8.7 MG/DL (8.5-10.1); CREATININE SERUM 2.12 MG/DL (0.60-1.30); POTASSIUM 3.8 MMOL/L (3.6-5.0)
[2021-08-18 07:09] LABS: CLARITY,URINE CLEAR; COLOR,URINE YELLOW; GLUCOSE, URINE (UA) 2+ (NEGATIVE); KETONES,URINE 3+ (NEGATIVE); LEUKOCYTE ESTERASE ,URINE NEGATIVE (NEGATIVE); NITRITE,URINE NEGATIVE (NEGATIVE); PROTEIN,URINE TRACE (NEGATIVE)
[2021-08-18 07:30] LABS: BILIRUBIN,URINE 2+ (NEGATIVE)
[2021-08-18 07:31] LABS: BACTERIA,URINE TRACE /HPF
[2021-08-18 07:32] LABS: AMPHETAMINE SCREEN, URINE NEGATIVE (NEGATIVE); BARBITURATE SCREEN URINE NEGATIVE (NEGATIVE); BENZODIAZEPINES SCREEN URINE NEGATIVE (NEGATIVE); CANNABINOID SCREEN, URINE POSITIVE (NEGATIVE); COCAINE SCREEN URINE NEGATIVE (NEGATIVE); METHADONE STAT NEGATIVE (NEGATIVE); METHAMPHETAMINE SCREEN URINE S NEGATIVE (NEGATIVE); OPIATE SCREEN URINE NEGATIVE (NEGATIVE); OXYCODONE STAT NEGATIVE (NEGATIVE); PROPOXYPHENE STAT NEGATIVE (NEGATIVE); TRICYCLIC ANTIDEPRESSANTS SCRE NEGATIVE (NEGATIVE)
[2021-08-18 08:12] LABS: BASOPHILS % (AUTO) 0 % (0-10); EOSINOPHILS % (AUTO) 0 % (0-10); HEMATOCRIT 34 % (40-54); HEMOGLOBIN 11.3 g/dL (13.3-17.7); LYMPHOCYTES # (AUTO) 1.1 10^3/uL (1.0-4.0); LYMPHOCYTES % (AUTO) 6 % (12-44); MEAN CORPUSCULAR HEMOGLOBIN 28 pg (25-34); MEAN CORPUSCULAR HGB CONC 33 g/dL (32-36); MEAN CORPUSCULAR VOLUME 83 fL (80-99); MONOCYTES # (AUTO) 0.6 10^3/uL (0.0-1.0); MONOCYTES % (AUTO) 3 % (0-12); NEUTROPHILS # (AUTO) 17.6 10^3/uL (1.8-7.8); NEUTROPHILS % (AUTO) 90 % (42-75); PLATELET COUNT 359 10^3/uL (130-400); WHITE BLOOD COUNT 19.6 10^3/uL (4.3-11.0)
[2021-08-18] MEDS: D5 1/2 NS 1000 ML IV SOLUTION 1,000 ML IV SCH ×3 (08:17→15:20)
[2021-08-18] MEDS: POTASSIUM CL 10MEQ/50ML IVPB 50 ML IV SCH ×8 (08:18→17:05)
[2021-08-18] MEDS: 1/2 NS IV SOLUTION 1,000 ML IV SCH ×5 (08:18→23:32)
[2021-08-18 08:34] LABS: CREATININE SERUM 2.04 MG/DL (0.60-1.30); POTASSIUM 3.8 MMOL/L (3.6-5.0)
--- NOTE | 2021-08-18 08:41 | Tele-ICU Consult ---
History of Present Illness History of Present Illness Date Seen by Provider: Aug 18, 2021 Time Seen by Provider: 08:36 History of Present Illness 31 yo M, known DKA, came to ED with hypotension, SBP 60-70, weakness, glu 298, pt thinks it was in 400's at home. HCO3 9, LA 1.91 ABG 7.28/18/65 started on DKA protocol, last glu 158, awake and alert, has some nausea, not quite ready to eat, still on IV insulin at 3 U/h numerous admissions for DKA Has gastroparesis and often vomiting at home as was case this time Allergies and Home Medications Allergies Coded Allergies: Penicillins (Verified Allergy, Unknown, 05/23/06) Home Medications Insulin Aspart 100 Unit/1 Ml Susp, UNIT SQ TIDAC, (Reported) USES 2 UNITS PER EVERY CARB Insulin Determir 1,000 Units/10 Ml Soln, 15 UNITS SQ HS, (Reported) Lisinopril 10 Mg Tablet, 10 MG PO DAILY, (Reported) Metoclopramide HCl 10 Mg Tablet, 10 MG PO BIDAC, (Reported) Pantoprazole Sodium 40 Mg Tablet.dr, 40 MG PO DAILY, (Reported) Past Medical/Social/Family Hx Patient Social History Tobacco Use?: No Use of E-Cig and/or Vaping dev: Yes E-Cig or Vaping type used: Marijuana Substance use?: Yes Substance type: Marijuana Alcohol Use?: No Pt stated abuse/neglect: No Immunizations Up To Date First/Initial COVID19 Vaccinat: 01/15/21 Second COVID19 Vaccination Pierre: 02/04/21 Tetanus Booster (TDap): Unknown Hepatitis A: No Hepatitis B: No TB Skin Test: None Date of Pneumonia Vaccine: Jul 16, 2016 Current Status Communicates: Verbally Primary Language: Palestinian Preferred Spoken Language: Palestinian Is interpretation needed?: No Past Medical History PMHx: Type I Diabetes Anxiety Diabetic Retinopathy Thyrotoxicosis Pneumonia Cardiomyopathy Gastroparesis Review of Systems Constitutional: see HPI EENTM: see HPI Respiratory: see HPI Cardiovascular: see HPI Gastrointestinal: see HPI Genitourinary: see HPI Musculoskeletal: see HPI Skin: see HPI Psychiatric/Neurological: See HPI Sepsis Event Evaluation Height, Weight, BMI Height: 5'11.00" Weight: 126lbs. 0.0oz. 57.242866pq; BMI Method:Stated Exam Exam Patient acknowledged, consented, and participated in this virtual visit which was conducted using real time audio/video Vital Signs Date Time Temp Pulse Resp B/P (MAP) Pulse Ox O2 Delivery O2 Flow Rate FiO2 08/18/21 07:30 141 08/18/21 07:17 100 Room Air 08/18/21 07:06 37.3 135 28 144/80 100 Room Air 08/18/21 06:52 36.7 142 17 131/75 100 Room Air 08/18/21 04:29 Room Air 08/18/21 04:29 36.7 128 34 76/44 (55) 100 Room Air I & O 08/18/21 06:59 Intake Total 2360 ml Balance 2360 ml Height & Weight Height: 5'11.00" Weight: 126lbs. 0.0oz. 57.954205rp; BMI Method:Stated General Appearance: WD/WN, Moderate Distress HEENT: PERRL/EOMI, Other (Mucous membranes extremely dry) Neck: Normal Inspection Respiratory: Lungs Clear, Normal Breath Sounds, No Accessory Muscle Use, Other (Tachypneic) Cardiovascular: No Edema, No Murmur, Tachycardia Capillary Refill: Less Than 3 Seconds Extremity: Normal Inspection, No Pedal Edema Neurologic/Psychiatric: Alert, No Motor/Sensory Deficits, sales professional II-XII Norm as Tested, Other (Generalized weakness) Skin: Normal Color, Warm/Dry Results Lab Laboratory Tests 08/18/21 04:42 08/18/21 06:35 08/18/21 07:40 Assessment/Plan Assessment/Plan DKA, will continue on DKA protocol IV Zofran for nausea Critical Care: Critically Ill Patient Time spent with patient (mins): 25 GRICELDA HARRISON MD Aug 18, 2021 08:41
[2021-08-18] MEDS: ONDANSETRON 4 MG/2 ML (SDV) Z0FRAN IVP PRN ×3 (10:26→20:29)
[2021-08-18 10:48] VITALS: BP 139/75
[2021-08-18] MEDS ORDERED: RT-ALBUTEROL SULF 2.5 MG/3 ML PRE-MIX VIAL INH PRN (11:00)
[2021-08-18] MEDS ORDERED: LISI10TA25 PO (11:59)
[2021-08-18 12:35] LABS: CALCIUM 8.7 MG/DL (8.5-10.1); CREATININE SERUM 1.55 MG/DL (0.60-1.30); POTASSIUM 3.8 MMOL/L (3.6-5.0)
--- NOTE | 2021-08-18 13:42 | History & Physical-Hospitalist ---
NIK MOONEY 08/18/21 1342: History of Present Illness HPI/Chief Complaint Previous HPI from ED: This 31-year-old gentleman with type 1 diabetes presents to the emergency room via EMS with about 24 hours of nausea and vomiting. He reports his blood sugar was in the 400s at home earlier. He took 10 units of NovoLog and EMS registered a blood sugar of 156. A liter of normal saline is infusing on arrival. Patient is tachypneic and appears very dry. He denies any symptoms of acute infectious illness such as fever, diarrhea, cough, etc. Systolic blood pressure is in the 60s and 70s upon arrival. Patient has a long history of numerous admissions for DKA. He also has consistent marijuana use. Patient was becoming progressively weak at home and was unable to get up off the floor. That is when he called emergency services. Today when I visited the patient he was resting in bed, mildly tachypnic but not in significant distress. He states that aside from some nausea and vomiting he is feeling much better already and just wants to rest. He does not complain of any pain, rather a general sense of weakness which is improving with the current treatment he is receiving. His labs continue to trend towards normal, however he is weak from his tachypnea and previous dehydration. Pt is content to continue rest and recovery. Source: patient Exam Limitations: clinical condition Date Seen 08/18/21 Time Seen by a Provider: 08:39 Attending Physician Lore Knight DO [facility] [place] Referring Physician Date of Admission Aug 18, 2021 at 06:27 Home Medications & Allergies Home Medications Reviewed patient Home Medication Reconciliation performed by pharmacy medication reconciliations aviation maintenance technician and/or nursing. Patients Allergies have been reviewed. Allergies Allergies Coded Allergies Penicillins (Verified Allergy, Unknown, 05/23/06) Past Ndrhxna-Pnucvq-Orlczo Hx Patient Social History Tobacco Use?: No Use of E-Cig and/or Vaping dev: Yes E-Cig or Vaping type used: Marijuana Substance use?: Yes Substance type: Marijuana Alcohol Use?: No Pt feels they are or have been: No Immunizations Up To Date Date of Influenza Vaccine: Aug 11, 2020 First/Initial COVID19 Vaccinat: 01/15/21 Second COVID19 Vaccination Pierre: 02/04/21 Tetanus Booster (TDap): Unknown Hepatitis A: No Hepatitis B: No PED Vaccines UTD: No Date of Pneumonia Vaccine: Jul 16, 2016 Seasonal Allergies Seasonal Allergies: No Current Status Communicates: Verbally Primary Language: Slovenian Preferred Spoken Language: Slovenian Is interpretation needed?: No Past Medical History Pneumonia Currently Using CPAP: No Currently Using BIPAP: No Cardiomyopathy, Hypertension Sexually Transmitted Disease: No HIV/AIDS: No Diabetes, Insulin dep Did You Recieve Any Treatments: No Blood Disorders: No Adverse Reaction/Blood Tranf: No PMHx: Type I Diabetes Anxiety Diabetic Retinopathy Thyrotoxicosis Pneumonia Cardiomyopathy Gastroparesis Family Medical History Cardiovascular disease 19 FATHER Hypertension 19 FATHER Heart Disease, Cancer, Hypertension Review of Systems Constitutional: No chills, No diaphoresis; dizziness; No fever; weakness EENTM: No ear pain, No blurred vision, No double vision, No mouth pain, No mouth swelling, No epistaxis, No throat pain, No throat swelling Respiratory: No cough, No dyspnea on exertion, No hemoptysis, No phlegm, No wheezing Cardiovascular: No chest pain, No edema, No palpitations Gastrointestinal: No RUQ, No LUQ, No RLQ, No LLQ, No diarrhea, No hematemesis; nausea, vomiting Genitourinary: No decreased output, No discharge, No dysuria, No frequency, No hematuria Musculoskeletal: No back pain, No joint pain, No joint swelling, No muscle pain, No muscle stiffness; muscle weakness Skin: No change in hair/nails, No dryness; lesions (Old lesions on the anterior surface of his shins which he attributes to his T1DM); No pruritus Psychiatric/Neurological: Denies Headache, Denies Numbness, Denies Paresthesia, Denies Seizure; Weakness Physical Exam Physical Exam Vital Signs Vital Signs - First Documented 08/18/21 10:48 FiO2 21 Capillary Refill : Less Than 3 Seconds Height, Weight, BMI Height: 5'11.00" Weight: 126lbs. 0.0oz. 57.289217kh; 16.21 BMI Method:Stated General Appearance: No Apparent Distress, Thin Eyes: Bilateral Eye PERRL, Bilateral Eye EOMI HEENT: PERRL/EOMI Neck: Full Range of Motion, Non Tender, Supple Respiratory: Chest Non Tender, Lungs Clear, Normal Breath Sounds, Accessory Muscle Use, Other (Tachypnic secondary to ketoacidosis) Cardiovascular: No Edema, No Murmur, Normal Peripheral Pulses, Tachycardia Gastrointestinal: Normal Bowel Sounds, No Organomegaly, No Pulsatile Mass, Non Tender, Soft Rectal: Deferred Back: No CVA Tenderness, No Vertebral Tenderness Extremity: Normal Capillary Refill, Normal Range of Motion, Non Tender, No Calf Tenderness, No Pedal Edema Neurologic/Psychiatric: Alert, Oriented x3, No Motor/Sensory Deficits, Normal Mood/Affect, vice president financial II-XII Norm as Tested Reflexes: 2+ Bicep (R), 2+ Bicep (L) Skin: Warm/Dry, Pallor (Mild) Lymphatic: No Adenopathy Results Results/Procedures Labs Laboratory Tests 08/18/21 04:42 08/18/21 06:35 08/18/21 07:40 08/18/21 12:10 Patient resulted labs reviewed. Assessment/Plan Admission Diagnosis DKA - associated nausea vomiting ALICIA Plan: IV fluids, insulin, potassium and dextrose. Monitor respiratory status, kidney function, potassium and return of labs to normal values. Anti-emetics for N/V and supportive care. LORE KNIGHT DO 08/19/21 0557: History of Present Illness HPI/Chief Complaint CC: DKA HPI: This is a 34yoWM long standing type 1 DM out of control status most of the time who presents to the ER with nausea and vomiting found to have DKA with bicarb less than 7. He has received an aggressive IV fluid regimen, a picc line will be placed. Currently he is doing okay but appears to be very weakened and frail. Pt will be at high risk for respiratory failure. Source: patient Exam Limitations: clinical condition Past Yghtcdg-Syuxvh-Tiylai Hx Patient Social History Marrital Status: single Employed/Student: unemployed Smoking Status: Unknown if Ever Smoked Family Medical History Cardiovascular disease 19 FATHER Hypertension 19 FATHER Review of Systems Constitutional: see HPI, malaise, weakness EENTM: no symptoms reported Respiratory: no symptoms reported Cardiovascular: no symptoms reported Gastrointestinal: abdominal pain, nausea, vomiting Genitourinary: no symptoms reported Musculoskeletal: no symptoms reported Skin: no symptoms reported Psychiatric/Neurological: No Symptoms Reported Physical Exam Physical Exam General Appearance: Chronically ill, Moderate Distress, Thin, Other (Extremely chronically ill, piper) Eyes: Right Eye Normal Inspection, Right Eye PERRL HEENT: PERRL/EOMI, Normal ENT Inspection, Pharynx Normal, Moist Mucous Membrane s Neck: Full Range of Motion, Normal Inspection, Non Tender Respiratory: Chest Non Tender, Lungs Clear, Normal Breath Sounds, No Respiratory Distress, Accessory Muscle Use Cardiovascular: Regular Rate, Rhythm, No Edema, No Gallop, No JVD, No Murmur, Normal Peripheral Pulses, Tachycardia Gastrointestinal: Normal Bowel Sounds, No Organomegaly, No Pulsatile Mass, Non Tender, Soft Back: Normal Inspection, No CVA Tenderness, No Vertebral Tenderness Extremity: Normal Capillary Refill, Normal Inspection, Normal Range of Motion, Non Tender, No Calf Tenderness, No Pedal Edema Neurologic/Psychiatric: Alert, Oriented x3, No Motor/Sensory Deficits, Normal Mood/Affect Skin: Normal Color, Warm/Dry Lymphatic: No Adenopathy Assessment/Plan Admission Diagnosis Assessment: DKA Acute kidney injury Plan: ICU protocol Supportive care Admission Status: Inpatient Order (span 2 midnights) Reason for Inpatient Admission: DKA Supervisory-Addendum Brief Verification & Attestation Participated in pt care: history, MDM, physical Personally performed: exam, history, MDM, supervision of care Care discussed with: Medical Student Procedures: n/a Results interpretation: Verified all documentation Verification and Attestation of Medical Student E/M Service A medical student performed and documented this service in my presence. I reviewed and verified all information documented by the medical student and made modifications to such information, when appropriate. I personally performed the physical exam and medical decision making. Lore Knight, Aug 19, 2021,05:57 NIK MOONEY Aug 18, 2021 13:42 LORE KNIGHT DO Aug 19, 2021 05:57
[2021-08-18 18:23] LABS: CALCIUM 7.9 MG/DL (8.5-10.1); CREATININE SERUM 1.13 MG/DL (0.60-1.30); POTASSIUM 3.5 MMOL/L (3.6-5.0)
[2021-08-18] MEDS: inSUlin ASPART (NovoLOG) 1 UNIT/0.01 ML (CHARGE PER UNIT) SC SCH ×2 (20:10→23:32)
[2021-08-18] MEDS ORDERED: METOCLOPRAMIDE INJ 10 MG/2 ML (REGLAN) ONE (21:57)
[2021-08-18] MEDS: METOCLOPRAMIDE INJ 10 MG/2 ML (REGLAN) IVP SCH (22:00)
[2021-08-19] MEDS: METOCLOPRAMIDE INJ 10 MG/2 ML (REGLAN) IVP SCH ×4 (03:07→21:57)
[2021-08-19] MEDS: 1/2 NS IV SOLUTION 1,000 ML IV SCH ×2 (03:15→17:52)
[2021-08-19 03:19] LABS: BASOPHILS % (AUTO) 0 % (0-10); EOSINOPHILS % (AUTO) 0 % (0-10); HEMATOCRIT 31 % (40-54); HEMOGLOBIN 10.5 g/dL (13.3-17.7); LYMPHOCYTES # (AUTO) 2.2 10^3/uL (1.0-4.0); LYMPHOCYTES % (AUTO) 15 % (12-44); MEAN CORPUSCULAR HEMOGLOBIN 28 pg (25-34); MEAN CORPUSCULAR HGB CONC 34 g/dL (32-36); MEAN CORPUSCULAR VOLUME 82 fL (80-99); MEAN PLATELET VOLUME 8.7 fL (9.0-12.2); MONOCYTES # (AUTO) 0.9 10^3/uL (0.0-1.0); MONOCYTES % (AUTO) 6 % (0-12); NEUTROPHILS # (AUTO) 11.5 10^3/uL (1.8-7.8); NEUTROPHILS % (AUTO) 78 % (42-75); PLATELET COUNT 258 10^3/uL (130-400); WHITE BLOOD COUNT 14.7 10^3/uL (4.3-11.0)
[2021-08-19 03:38] LABS: ALBUMIN 3.2 GM/DL (3.2-4.5); BILIRUBIN,TOTAL 0.4 MG/DL (0.1-1.0); CALCIUM 8.3 MG/DL (8.5-10.1); CREATININE SERUM 0.93 MG/DL (0.60-1.30); MAGNESIUM 1.7 MG/DL (1.6-2.4); PHOSPHORUS 3.6 MG/DL (2.3-4.7); TOTAL PROTEIN 5.6 GM/DL (6.4-8.2)
[2021-08-19] MEDS: inSUlin ASPART (NovoLOG) 1 UNIT/0.01 ML (CHARGE PER UNIT) SC SCH ×6 (03:39→16:18)
[2021-08-19] MEDS: ONDANSETRON 4 MG/2 ML (SDV) Z0FRAN IVP PRN ×3 (03:49→13:51)
[2021-08-19] MEDS: MAGNESIUM 1 GM/100 ML IVPB 100 ML IV SCH (05:55)
[2021-08-19] MEDS ORDERED: MAGNESIUM 1 GM/100 ML IVPB 100 ML IV SCH (06:00)
[2021-08-19] MEDS ORDERED: KCL 20 MEQ TAB (K-DUR) PO SCH (06:00)
[2021-08-19] MEDS ORDERED: POTASSIUM CL 10MEQ/50ML IVPB 50 ML IV SCH ×2 (06:00→16:30)
[2021-08-19] MEDS ORDERED: NS IV 1000 ML 1,000 ML IV SCH ×2 (11:15→16:30)
--- NOTE | 2021-08-19 13:40 | Consultation - Surgery ---
CLEMENT RAMIREZ 08/19/21 1340: History of Present Illness History of Present Illness Patient Consulted On(ginny/time) 08/19/21 13:28 Date Seen by Provider: Aug 19, 2021 Time Seen by Provider: 13:28 Reason for Visit: DKA, N/V History of Present Illness Chemo Nelson is a 31 yo male with a history of poorly controlled type 1 diabetes mellitus, who presented to the ER on 08/18/21 for evaluation and management of DKA, and associated nuasea and vomiting. Chemo states that on 08/17/21, one day prior to ER presentation, he began to experience intractable nausea and vomiting, and was unable to keep water down. Chemo reports that he has experienced this before, and was planning to get imaging done at [place], however, he has been delayed in doing so, because he has not been able to gather the necessary financial resources. Presently, the nausea and vomiting is aggravated by movement and ingestion of liquids, and is relieved by high doses of Zofran. Today, Chemo is resting, and has no complaints; he denies any discomfort other than nausea and vomiting and is eager to get imaging done. Allergies and Home Medications Allergies Coded Allergies: Penicillins (Verified Allergy, Unknown, 05/23/06) Patient Home Medication List Home Medication List Reviewed: Yes Insulin Aspart (Novolog) 100 Unit/1 Ml Susp, UNIT SQ TIDAC, (Reported) Entered as Reported by: NICOLLE MUNSON on 11/28/19 1021 Last Action: Reviewed Insulin Determir (Levemir) 1,000 Units/10 Ml Soln, 15 UNITS SQ HS, (Reported) Entered as Reported by: NICOLLE MUNSON on 11/28/19 1021 Last Action: Reviewed Lisinopril (Lisinopril) 10 Mg Tablet, 10 MG PO DAILY, (Reported) Entered as Reported by: YUMIKO SNOW on 08/18/21 1159 Last Action: Reviewed Metoclopramide HCl (Metoclopramide HCl) 10 Mg Tablet, 10 MG PO BIDAC, (Reported) Entered as Reported by: DANNIE PERDOMO on 01/11/21 0919 Last Action: Reviewed Pantoprazole Sodium (Pantoprazole Sodium) 40 Mg Tablet.dr, 40 MG PO DAILY, (Reported) Entered as Reported by: DANNIE PERDOMO on 01/11/21 0952 Last Action: Reviewed Discontinued Medications Lisinopril (Lisinopril) 20 Mg Tablet, 20 MG PO DAILY, (Reported) Discontinued Reason: No Longer Taking Entered as Reported by: YUMIKO SNOW on 02/22/21 1204 Last Action: Discontinued Past Qdhjekg-Yjqizz-Olmuqn Hx Patient Social History Drug of Choice: HX MARIJUANA Smoking Status: Unknown if Ever Smoked Former Smoker, Quit: Sep 28, 2012 Type Used: Cigarettes 2nd Hand Smoke Exposure: No Recent Hopitalizations: No Alcohol Use?: No Substance type: Marijuana Have you traveled recently?: No Immunizations Up To Date Tetanus Booster (TDap): Unknown PED Vaccines UTD: No Date of Pneumonia Vaccine: Jul 16, 2016 Date of Influenza Vaccine: Aug 11, 2020 Seasonal Allergies Seasonal Allergies: No Surgeries History of Surgeries: No Respiratory History of Respiratory Disorde: Yes Respiratory Disorders: Pneumonia Cardiovascular History of Cardiac Disorders: Yes (CARDIOMYOPATHY DX 2017) Cardiac Disorders: Cardiomyopathy, Hypertension Neurological History of Neurological Disord: No Reproductive System Hx Reproductive Disorders: No Sexually Transmitted Disease: No HIV/AIDS: No Genitourinary History of Genitourinary Disor: No Gastrointestinal History of Gastrointestinal Di: Yes (GASTROPARESIS) Musculoskeletal History of Musculoskeletal Dis: No Endocrine History of Endocrine Disorders: Yes (DX AGE 11, [place] 2001; MULTIPLE ADMITS FOR DKA) Endocrine Disorders: Diabetes, Insulin dep Cancer History of Cancer: No Psychosocial History of Psychiatric Problem: Yes (Frequent marijuana use) Integumentary History of Skin or Integumenta: Yes (WOUNDS TO LOWER LEGS-- REQUIRED WOUND CARE CLINIC TREATMENT) Blood Transfusions History of Blood Disorders: No Adverse Reaction to a Blood Tr: No Family Medical History Significant Family History: Heart Disease, Cancer, Hypertension Family Medial History: Cardiovascular disease 19 FATHER Hypertension 19 FATHER Review of Systems-General Constitutional: malaise, weakness EENTM: No blurred vision, No hoarseness Respiratory: No hemoptysis, No short of breath Cardiovascular: No chest pain, No edema Gastrointestinal: abdominal pain, loss of appetite, nausea, vomiting Genitourinary: No hematuria, No hesitancy Musculoskeletal: No back pain, No joint pain Skin: dryness; No pruritus Psychiatric/Neurological: Denies Headache, Denies Numbness Physical Exam-General Problems Physical Exam Vital Signs Vital Signs - First Documented 08/18/21 10:48 FiO2 21 Capillary Refill : Less Than 3 Seconds General Appearance: WD/WN, no apparent distress HEENT: PERRL/EOMI, normal ENT inspection Neck: supple, normal inspection Respiratory: chest non-tender, lungs clear, normal breath sounds, no respiratory distress, no accessory muscle use Cardiovascular: normal peripheral pulses, regular rate, rhythm, no edema, no gallop, no JVD, tachycardia Peripheral Pulses: 2+ Radial Pulses (R), 2+ Radial Pulses (L) Gastrointestinal: normal bowel sounds, tenderness (RUQ) Rectal: deferred Back: normal inspection Extremities: normal range of motion, non-tender, no pedal edema Neurologic/Psychiatric: no motor/sensory deficits, alert, oriented x 3, depressed affect Skin: normal color, warm/dry Lymphatic: no adenopathy Data Review Labs Laboratory Tests 08/18/21 14:10: Glucometer 133H 08/18/21 14:56: Glucometer 140H 08/18/21 16:00: Glucometer 131H 08/18/21 17:03: Glucometer 130H 08/18/21 17:58: Sodium Level 137, Potassium Level 3.5L, Chloride Level 109H, Carbon Dioxide Level 19L, Anion Gap 9, Blood Urea Nitrogen 13, Creatinine 1.13, Estimat Glomerular Filtration Rate 75, BUN/Creatinine Ratio 12, Glucose Level 135H, Calcium Level 7.9L 08/18/21 18:06: Glucometer 103 08/18/21 18:31: Glucometer 143H 08/18/21 19:43: Glucometer 152H 08/18/21 22:56: Glucometer 115H 08/19/21 03:15: White Blood Count 14.7H, Red Blood Count 3.79L, Hemoglobin 10.5L, Hematocrit 31L , Mean Corpuscular Volume 82, Mean Corpuscular Hemoglobin 28, Mean Corpuscular Hemoglobin Concent 34, Red Cell Distribution Width 13.6, Platelet Count 258, Mean Platelet Volume 8.7L, Immature Granulocyte % (Auto) 1, Neutrophils (%) (Auto) 78H, Lymphocytes (%) (Auto) 15, Monocytes (%) (Auto) 6, Eosinophils (%) (Auto) 0, Basophils (%) (Auto) 0, Neutrophils # (Auto) 11.5H, Lymphocytes # ( Auto) 2.2, Monocytes # (Auto) 0.9, Eosinophils # (Auto) 0.0, Basophils # (Auto) 0.0, Immature Granulocyte # (Auto) 0.1, Sodium Level 140, Potassium Level 4.0, Chloride Level 107, Carbon Dioxide Level 22, Anion Gap 11, Blood Urea Nitrogen 9, Creatinine 0.93, Estimat Glomerular Filtration Rate 94, BUN/Creatinine Ratio 10, Glucose Level 93, Calcium Level 8.3L, Corrected Calcium 8.9, Phosphorus Level 3.6, Magnesium Level 1.7, Total Bilirubin 0.4, Aspartate Amino Transf (AST/SGOT) 16, Alanine Aminotransferase (ALT/SGPT) 7, Alkaline Phosphatase 72, Total Protein 5.6L, Albumin 3.2 08/19/21 07:29: Glucometer 204H 08/19/21 11:01: Glucometer 258H Microbiology 08/18/21 MRSA Screen - Final, Complete MRSA not isolated 08/18/21 Blood Culture - Preliminary, Resulted Gram Positive Cocci in Cluster Radiology NAME: MEM[facility]ELSONN [facility] REC#: [id number] PT STATUS: ADM IN : 1990 PHYSICIAN: ANATOLY SHAFER MD ADMIT DATE: 08/18/21/ICU Signed Date of Exam:08/18/21 CHEST 1 VIEW, AP/PA ONLY INDICATION: Sepsis. Comparison with 02/23/2021. FINDINGS: The lungs are well-aerated. No infiltrates have developed. The heart is not enlarged. No pulmonary edema or hilar adenopathy. No pneumothorax or pleural effusion. No bony abnormalities. IMPRESSION: Normal portable chest Assessment/Plan Assessment/Plan Admission Diagonsis DKA Assessment/Plan 1. T1DM, poorly controlled 2. DKA 3. Nausea, vomiting, 2/2 to suspected gastroparesis Continue to fluid resuscitate Monitor potassium, sodium, bicarb Administer Metocloperamide Administer Zofran PRN EGD Monitor closely OG LLAMAS DO 08/19/21 3450: History of Present Illness History of Present Illness History of Present Illness Counts requested by Dr. Knight for EGD due to nausea vomiting. Patient a 31-year-old male who is type I diabetic who has been having nausea and vomiting and is in DKA. Patient has continued having nausea and vomiting and been feeling weak. He is unable to keep anything down. Nothing seems to make it better. Nothing really seems to make it worse that he knows of. Patient has slight abdominal discomfort all over. Just sore type feeling. Patient does have gastroesophageal reflux disease which she states he is on Protonix for. Has not had any recent endoscopy. Patient states that he has been trying to keep his blood sugars under control but just has difficulty and he has brittle. Patient states he believes his last hemoglobin A1c was around 8. Patient with multiple admissions he believes that he had greater than 6 admissions last year. Patient with no other complaints at this time. Denies fever sweats chills shortness of breath or chest pain at this time. Allergies and Home Medications Allergies Coded Allergies: Penicillins (Verified Allergy, Unknown, 05/23/06) Patient Home Medication List Home Medication List Reviewed: Yes Insulin Aspart (Novolog) 100 Unit/1 Ml Susp, UNIT SQ TIDAC, (Reported) Entered as Reported by: NICOLLE MUNSON on 11/28/19 1021 Last Action: Reviewed Insulin Determir (Levemir) 1,000 Units/10 Ml Soln, 15 UNITS SQ HS, (Reported) Entered as Reported by: NICOLLE MUNSON on 11/28/19 1021 Last Action: Reviewed Lisinopril (Lisinopril) 10 Mg Tablet, 10 MG PO DAILY, (Reported) Entered as Reported by: YUMIKO SNOW on 08/18/21 1159 Last Action: Reviewed Metoclopramide HCl (Metoclopramide HCl) 10 Mg Tablet, 10 MG PO BIDAC, (Reported) Entered as Reported by: DANNIE PERDOMO on 01/11/21 09 Last Action: Reviewed Pantoprazole Sodium (Pantoprazole Sodium) 40 Mg Tablet.dr, 40 MG PO DAILY, (Reported) Entered as Reported by: DANNIE PERDOMO on 01/11/21 09 Last Action: Reviewed Discontinued Medications Lisinopril (Lisinopril) 20 Mg Tablet, 20 MG PO DAILY, (Reported) Discontinued Reason: No Longer Taking Entered as Reported by: YUMIKO SNOW on 02/22/21 1204 Last Action: Discontinued Past Fcnyuml-Jggvby-Tagobc Hx Patient Social History Drug of Choice: Marijuana Reviewed Nursing Assessment Reviewed/Agree w Nursing PMH: Yes Family Medical History Significant Family History: No Pertinent Family Hx Family Medial History: Cardiovascular disease 19 FATHER Hypertension 19 FATHER Review of Systems-General Constitutional: malaise, weakness EENTM: No blurred vision, No hoarseness Respiratory: No hemoptysis, No short of breath Cardiovascular: No chest pain, No edema Gastrointestinal: abdominal pain, loss of appetite, nausea, vomiting Genitourinary: No hematuria, No hesitancy Musculoskeletal: No back pain, No joint pain Skin: dryness; No pruritus Psychiatric/Neurological: Denies Headache, Denies Numbness All Other Systems Reviewed Negative Unless Noted: Yes (Negative excepted noted.) Physical Exam-General Problems Physical Exam General Appearance: no apparent distress, thin HEENT: PERRL/EOMI, normal ENT inspection Neck: supple, normal inspection Respiratory: chest non-tender, no respiratory distress, no accessory muscle use Cardiovascular: no JVD, tachycardia Gastrointestinal: soft, tenderness (Minimally diffuse) Rectal: deferred Back: no CVA tenderness, no vertebral tenderness Extremities: non-tender, normal inspection Neurologic/Psychiatric: no motor/sensory deficits, alert, oriented x 3, depressed affect Skin: normal color, warm/dry Lymphatic: no adenopathy Assessment/Plan Assessment/Plan Assessment/Plan T1DM, poorly controlled DKA Nausea, vomiting, 2/2 to suspected gastroparesis Gerd Plan patient to be n.p.o. after midnight will obtain consent for EGD all indicated procedures. Gastric emptying study for suspected gastroparesis need to be scheduled. Continue supportive measures Supervisory-Addendum Brief Verification & Attestation Participated in pt care: history, MDM, physical Personally performed: exam Care discussed with: Medical Student Procedures: n/a Results interpretation: Verified all documentation Verification and Attestation of Medical Student E/M Service A medical student performed and documented this service in my presence. I reviewed and verified all information documented by the medical student and made modifications to such information, when appropriate. I personally performed the physical exam and medical decision making. Og Llamas, Aug 19, 2021,23:10 CLEMENT RAMIREZ Aug 19, 2021 13:40 OG LLAMAS DO Aug 19, 2021 23:10
[2021-08-19 16:00] LABS: CALCIUM 8.7 MG/DL (8.5-10.1); CREATININE SERUM 0.98 MG/DL (0.60-1.30); POTASSIUM 4.1 MMOL/L (3.6-5.0)
--- NOTE | 2021-08-19 16:20 | Progress Note - Hospitalist ---
NIK MOONEY 08/19/21 1620: Subjective HPI/CC On Admission Date Seen by Provider: Aug 19, 2021 Time Seen by Provider: 08:46 CC: DKA HPI: This is a 34yoWM long standing type 1 DM out of control status most of the time who presents to the ER with nausea and vomiting found to have DKA with bicarb less than 7. He has received an aggressive IV fluid regimen, a picc line will be placed. Currently he is doing okay but appears to be very weakened and frail. Pt will be at high risk for respiratory failure. Subjective/Events-last exam Pt resting in bed today and states that he is feeling better. Still complains of some N/V and not interested in eating at this time. His labs have greatly improved since yesterday suggesting resolution of his DKA, but he remains weak and will follow closely. Review of Systems General: No Chills, No Night Sweats; Fatigue; No Malaise, No Appetite HEENT: No Head Aches, No Visual Changes, No Sore Throat Pulmonary: No Dyspnea, No Cough, No Pleuritic Chest Pain Cardiovascular: No: Chest Pain, Palpitations, Paroxysmal Noc. Dyspnea, Lt Headedness Gastrointestinal: Nausea, Vomiting; No: Abdominal Pain, Diarrhea Genitourinary: No Dysuria, No Frequency, No Incontinence, No Hematuria Musculoskeletal: No: neck pain, shoulder pain, arm pain, back pain, hand pain, leg pain Neurological: Weakness; No: Numbness, Change in speech, Confusion, Seizures Focused Exam Lactate Level 08/18/21 05:25: Lactic Acid Level 5.06*H 08/18/21 07:38: Lactic Acid Level 1.91 Objective Exam Vital Signs Vital Signs Date Time Temp Pulse Resp B/P (MAP) Pulse Ox O2 Delivery O2 Flow Rate FiO2 08/19/21 16:00 37.5 137 28 125/70 100 Room Air 08/18/21 10:48 21 Capillary Refill : Less Than 3 Seconds General Appearance: No Apparent Distress, Thin HEENT: PERRL/EOMI, Pharynx Normal Neck: Full Range of Motion, Non Tender, Supple Respiratory: Chest Non Tender, Lungs Clear, Normal Breath Sounds, No Accessory Muscle Use, No Respiratory Distress Cardiovascular: No Edema, No Gallop, No Murmur, Normal Peripheral Pulses, Tachycardia Gastrointestinal: Normal Bowel Sounds, No Organomegaly, No Pulsatile Mass, Non Tender, Soft Rectal: Deferred Back: No CVA Tenderness, No Vertebral Tenderness Extremity: Normal Capillary Refill, Normal Range of Motion, Non Tender, No Calf Tenderness, No Pedal Edema Neurologic/Psychiatric: Alert, Oriented x3, No Motor/Sensory Deficits, Dep ressed Affect Reflexes: 2+ Bicep (R), 2+ Bicep (L) Skin: Normal Color, Warm/Dry Lymphatic: No Adenopathy (axillary and cervical) Results/Procedures Lab Laboratory Tests 08/18/21 17:58 08/19/21 03:15 08/19/21 15:19 Patient resulted labs reviewed. Assessment/Plan Assessment and Plan Assess & Plan/Chief Complaint DKA Acute kidney injury Plan: ICU protocol Continue supportive care, monitor closely, repeat BMP this afternoon to watch for relapse. LORE JOSÉ DO 08/20/21 0539: Subjective Subjective/Events-last exam Patient was doing well but after rounds I checked BMP and he went into DKA again Typical return to DKA each hospital stay Long-term prognosis is poor Objective Exam General Appearance: No Apparent Distress, Anxious, Chronically ill, Thin Respiratory: Lungs Clear, Normal Breath Sounds Cardiovascular: Tachycardia Assessment/Plan Assessment and Plan Assess & Plan/Chief Complaint Return to ICU DKA protocol Supervisory-Addendum Brief Verification & Attestation Participated in pt care: history, MDM, physical Personally performed: exam, history, MDM, supervision of care Care discussed with: Medical Student Procedures: n/a Results interpretation: Verified all documentation Verification and Attestation of Medical Student E/M Service A medical student performed and documented this service in my presence. I reviewed and verified all information documented by the medical student and made modifications to such information, when appropriate. I personally performed the physical exam and medical decision making. Lore José Aug 20, 2021,05:38 NIK MOONEY Aug 19, 2021 16:20 LORE JOSÉ DO Aug 20, 2021 05:39
[2021-08-19 16:53] LABS: HEMATOCRIT 34 % (40-54); HEMOGLOBIN 11.3 g/dL (13.3-17.7); MEAN CORPUSCULAR HEMOGLOBIN 28 pg (25-34); MEAN CORPUSCULAR HGB CONC 34 g/dL (32-36); MEAN CORPUSCULAR VOLUME 82 fL (80-99); MEAN PLATELET VOLUME 8.9 fL (9.0-12.2); PLATELET COUNT 293 10^3/uL (130-400); WHITE BLOOD COUNT 17.7 10^3/uL (4.3-11.0)
[2021-08-19 17:12] LABS: CALCIUM 8.6 MG/DL (8.5-10.1); CREATININE SERUM 1.07 MG/DL (0.60-1.30); POTASSIUM 4.1 MMOL/L (3.6-5.0)
[2021-08-19] MEDS: POTASSIUM CL 10MEQ/50ML IVPB 50 ML IV SCH ×3 (17:54→21:57)
[2021-08-19 18:06] LABS: BILIRUBIN,URINE NEGATIVE (NEGATIVE); CLARITY,URINE CLEAR; COLOR,URINE YELLOW; GLUCOSE, URINE (UA) 3+ (NEGATIVE); KETONES,URINE 3+ (NEGATIVE); LEUKOCYTE ESTERASE ,URINE NEGATIVE (NEGATIVE); NITRITE,URINE NEGATIVE (NEGATIVE); PROTEIN,URINE NEGATIVE (NEGATIVE)
--- NOTE | 2021-08-19 18:12 | Tele-ICU Progress Note ---
Subjective Date Seen by a Provider: Aug 19, 2021 Time Seen by a Provider: 18:12 Sepsis Event Evaluation Height, Weight, BMI Height: 5'11.00" Weight: 126lbs. 0.0oz. 57.357743ly; 16.21 BMI Method:Stated Focused Exam Lactate Level 08/18/21 05:25: Lactic Acid Level 5.06*H 08/18/21 07:38: Lactic Acid Level 1.91 Exam Exam Patient acknowledged, consented, and participated in this virtual visit which was conducted using real time audio/video Vital Signs Date Time Temp Pulse Resp B/P (MAP) Pulse Ox O2 Delivery O2 Flow Rate FiO2 08/19/21 16:00 37.5 137 28 125/70 100 Room Air 08/19/21 14:13 37.1 134 20 110/63 100 Room Air 08/19/21 14:00 101 26 157/100 98 Room Air 08/19/21 13:00 101 26 157/100 98 Room Air 08/19/21 12:00 37.2 08/19/21 12:00 24 136/86 98 Room Air 08/19/21 12:00 100 Room Air 08/19/21 11:00 114 168/106 100 Room Air 08/19/21 10:00 112 18 145/90 100 Room Air 08/19/21 09:00 122 25 141/117 99 Room Air 08/19/21 08:00 96 21 135/93 98 Room Air 08/19/21 07:39 100 Room Air 08/19/21 07:00 107 08/19/21 07:00 97 20 137/89 97 Room Air 08/19/21 06:00 37.4 08/19/21 06:00 124 14 166/101 100 Room Air 08/19/21 05:00 116 23 173/106 99 Room Air 08/19/21 04:00 100 Room Air 08/19/21 04:00 102 17 159/96 99 Room Air 08/19/21 03:00 99 19 134/94 99 Room Air 08/19/21 02:00 98 19 145/92 98 Room Air 08/19/21 01:00 100 08/19/21 01:00 100 24 132/94 97 Room Air 08/19/21 00:00 100 Room Air 08/19/21 00:00 100 25 123/84 98 Room Air 08/18/21 23:00 98 23 150/96 98 Room Air 08/18/21 22:00 105 20 176/109 100 Room Air 08/18/21 21:00 105 22 174/100 99 Room Air 08/18/21 20:00 100 Room Air 08/18/21 20:00 96 22 126/86 98 Room Air 08/18/21 19:25 36.9 08/18/21 19:00 100 20 133/80 98 Room Air 08/18/21 19:00 100 I & O 08/19/21 06:59 Intake Total 3850 ml Output Total 4290 ml Balance -440 ml Height & Weight Height: 5'11.00" Weight: 126lbs. 0.0oz. 57.548668sh; 16.21 BMI Method:Stated General Appearance: No Apparent Distress, Thin HEENT: PERRL/EOMI, Pharynx Normal Neck: Full Range of Motion, Non Tender, Supple Respiratory: Chest Non Tender, Lungs Clear, Normal Breath Sounds, No Accessory Muscle Use, No Respiratory Distress Cardiovascular: No Edema, No Gallop, No Murmur, Normal Peripheral Pulses, Tachycardia Capillary Refill: Less Than 3 Seconds Peripheral Pulses: 2+ Radial Pulses (R), 2+ Radial Pulses (L) Gastrointestinal: normal bowel sounds, tenderness (RUQ) Extremity: Normal Capillary Refill, Normal Range of Motion, Non Tender, No Calf Tenderness, No Pedal Edema Neurologic/Psychiatric: Alert, Oriented x3, No Motor/Sensory Deficits, Depressed Affect Skin: Normal Color, Warm/Dry Lymphatic: No Adenopathy (axillary and cervical) Results Lab Laboratory Tests 08/18/21 04:42 08/18/21 06:35 08/18/21 07:40 08/18/21 12:10 08/18/21 17:58 08/19/21 03:15 08/19/21 15:19 08/19/21 16:50 Assessment/Plan Assessment/Plan (Tele-ICU Physician , Progress Note ) Available chart/ vitals / labs / Images reviewed Video assessment done using teleICU camera, rest of exam as per RN Discussed with RN , EXAM PER RN Afebrile Drips: insulin gtt Pressors: , hemodynamically stable Consultants: sx A/P DKA , DM I *Insulin drip was off . given levemir - not big enouth dose - back to DKA - > back to insulin gtt *Tx Gastroparesis - difficult to control - multiple meds , QTc 405 MIGH NEED OFF LABEL MEDS - ( ? ZYPREXA 5 MG- PER PCP Leukocytosis - blood cx 08/18 - GPC clusters - probably contaminant - will repeat Plans in collaboration with bedside consultants and IM MDs. Discussed with RN to reach out if any questions or concerns A total of 20 minutes of critical care time was devoted to this patient today, required to treat and/or prevent further deterioration of critical care condition ( as above) . MAGI FAGAN MD Aug 19, 2021 18:12
[2021-08-19 18:17] LABS: BACTERIA,URINE NEGATIVE /HPF
[2021-08-19] MEDS: D5 1/2 NS 1000 ML IV SOLUTION 1,000 ML IV SCH ×2 (18:49→21:57)
[2021-08-19 19:23] LABS: CALCIUM 8.2 MG/DL (8.5-10.1); CREATININE SERUM 0.87 MG/DL (0.60-1.30); POTASSIUM 3.6 MMOL/L (3.6-5.0)
[2021-08-20] MEDS: POTASSIUM CL 10MEQ/50ML IVPB 50 ML IV SCH ×10 (00:10→14:57)
[2021-08-20 00:54] LABS: CREATININE SERUM 0.75 MG/DL (0.60-1.30); POTASSIUM 3.5 MMOL/L (3.6-5.0)
[2021-08-20] MEDS: 1/2 NS IV SOLUTION 1,000 ML IV SCH ×6 (02:13→15:33)
[2021-08-20] MEDS: D5 1/2 NS 1000 ML IV SOLUTION 1,000 ML IV SCH ×3 (03:06→12:40)
[2021-08-20] MEDS: MAGNESIUM 1 GM/100 ML IVPB 100 ML IV SCH (04:08)
[2021-08-20] MEDS: METOCLOPRAMIDE INJ 10 MG/2 ML (REGLAN) IVP SCH ×4 (04:54→21:43)
[2021-08-20] MEDS: KCL 20 MEQ TAB (K-DUR) PO SCH (06:52)
[2021-08-20 08:25] LABS: CALCIUM 8.4 MG/DL (8.5-10.1); CREATININE SERUM 0.68 MG/DL (0.60-1.30); POTASSIUM 3.8 MMOL/L (3.6-5.0)
--- NOTE | 2021-08-20 09:06 | Tele-ICU Progress Note ---
Subjective Date Seen by a Provider: Aug 20, 2021 Time Seen by a Provider: 08:05 Subjective/Events-last exam This virtual visit was conducted using real time audio/video. Thank you for asking us to see this patient for DKA. HPC: Recent events: IV insulin held per protocol. PE: Resting comfortably, cachectic. VSS O2 sat 99% on RA. HEENT: No obvious masses, adenopathy or JVD. Chest: clear to auscultation. CV: RRR S1 S2 No murmur or added sounds. Abd: Non-tender. Bowel sounds Y. : Unremarkable. Carrillo N. SENIOR MAINFRAME PROGRAMMER ANALYST/psychiatric: Alert and oriented, grossly intact. No obvious focal findings. Extremities: No edema. Capillary refill < 3 seconds. Skin: unremarkable. Results: Elevated BG 152, WCC 17.7, likely reactive. Decreased K 3.5. CXR clear. A/P: DKA resolving. Available chart/ vitals / labs / images reviewed. Video assessment done using teleICU camera, rest of exam as per RN. Critical Care: critically ill patient.Replace K, monitor BG off IV insulin. Discussed with CHICO Mello. Asked RN to reach out to eICU if any questions or concerns later. Time spent with patient/coordination of care with other health professionals (mins): 15 From: Chaunecy Longoria MD Sepsis Event Evaluation Height, Weight, BMI Height: 5'11.00" Weight: 126lbs. 0.0oz. [id number]; 16.21 BMI Method:Stated Focused Exam Lactate Level 08/18/21 05:25: Lactic Acid Level 5.06*H 08/18/21 07:38: Lactic Acid Level 1.91 Exam Exam Patient acknowledged, consented, and participated in this virtual visit which was conducted using real time audio/video Vital Signs Date Time Temp Pulse Resp B/P (MAP) Pulse Ox O2 Delivery O2 Flow Rate FiO2 08/20/21 08:20 98 Room Air 08/20/21 08:00 36.6 08/20/21 07:45 91 8 147/91 99 08/20/21 07:30 95 24 157/101 99 08/20/21 07:23 99 Room Air 08/20/21 07:15 91 9 140/89 99 08/20/21 07:00 95 17 134/90 98 Room Air 08/20/21 07:00 91 08/20/21 06:45 96 18 128/91 99 08/20/21 06:30 131/94 08/20/21 06:15 94 10 135/94 99 08/20/21 06:00 98 16 135/94 98 Room Air 08/20/21 05:45 112 15 126/80 100 08/20/21 05:30 94 19 138/92 99 08/20/21 05:15 112 23 167/97 96 08/20/21 05:00 108 17 167/97 99 Room Air 08/20/21 04:45 95 12 131/90 99 08/20/21 04:30 94 15 148/87 99 08/20/21 04:15 136/91 08/20/21 04:00 99 Room Air 08/20/21 04:00 93 15 136/91 99 Room Air 08/20/21 03:45 112 29 153/105 99 08/20/21 03:30 94 21 132/92 99 08/20/21 03:15 96 19 130/92 99 08/20/21 03:00 96 18 130/92 99 Room Air 08/20/21 02:45 125/92 08/20/21 02:30 101 11 135/92 100 08/20/21 02:15 138/95 08/20/21 02:00 120 15 138/95 100 Room Air 08/20/21 01:45 114 18 133/78 99 08/20/21 01:30 97 0 125/85 99 08/20/21 01:15 95 15 126/85 98 08/20/21 01:00 106 19 126/85 99 Room Air 08/20/21 01:00 106 08/20/21 00:45 96 22 130/95 100 08/20/21 00:30 96 20 133/90 99 08/20/21 00:15 98 19 126/92 99 08/20/21 00:00 108 19 126/92 99 Room Air 08/20/21 00:00 99 Room Air 08/19/21 23:45 98 7 131/95 99 08/19/21 23:30 98 7 127/82 99 08/19/21 23:23 36.7 08/19/21 23:15 98 18 120/88 99 08/19/21 23:00 101 18 120/88 98 Room Air 08/19/21 22:45 113 7 127/92 98 08/19/21 22:30 98 19 126/80 100 08/19/21 22:15 117 23 146/102 97 08/19/21 22:00 122 18 146/102 100 Room Air 08/19/21 21:45 105 23 141/96 99 08/19/21 21:30 139/98 08/19/21 21:15 105 24 145/102 99 08/19/21 21:00 111 23 145/102 98 Room Air 08/19/21 20:45 109 21 128/85 99 08/19/21 20:30 108 6 139/90 98 08/19/21 20:15 107 21 131/86 96 08/19/21 20:00 108 24 131/86 99 Room Air 08/19/21 20:00 100 Room Air 08/19/21 19:45 112 30 145/99 99 08/19/21 19:44 37.4 08/19/21 19:30 117 29 147/99 99 08/19/21 19:15 115 26 151/99 100 08/19/21 19:00 126 08/19/21 19:00 126 20 151/99 100 Room Air 08/19/21 17:45 100 Room Air 08/19/21 16:00 37.5 137 28 125/70 100 Room Air 08/19/21 14:13 37.1 134 20 110/63 100 Room Air 08/19/21 14:00 101 26 157/100 98 Room Air 08/19/21 13:00 101 26 157/100 98 Room Air 08/19/21 12:00 37.2 08/19/21 12:00 24 136/86 98 Room Air 08/19/21 12:00 100 Room Air 08/19/21 11:00 114 168/106 100 Room Air 08/19/21 10:00 112 18 145/90 100 Room Air I & O 08/20/21 07:00 Intake Total 7250 ml Output Total 3825 ml Balance 3425 ml Height & Weight Height: 5'11.00" Weight: 126lbs. 0.0oz. 57.437764cx; 16.21 BMI Method:Stated General Appearance: No Apparent Distress, Anxious, Chronically ill, Thin HEENT: PERRL/EOMI, Pharynx Normal Neck: Full Range of Motion, Non Tender, Supple Respiratory: Lungs Clear, Normal Breath Sounds Cardiovascular: Tachycardia Capillary Refill: Less Than 3 Seconds Peripheral Pulses: 2+ Radial Pulses (R), 2+ Radial Pulses (L) Gastrointestinal: soft, tenderness (Minimally diffuse) Extremity: Normal Capillary Refill, Normal Range of Motion, Non Tender, No Calf Tenderness, No Pedal Edema Neurologic/Psychiatric: Alert, Oriented x3, No Motor/Sensory Deficits, Depressed Affect Skin: Normal Color, Warm/Dry Lymphatic: No Adenopathy (axillary and cervical) Results Lab Laboratory Tests 08/18/21 12:10 08/18/21 17:58 08/19/21 03:15 08/19/21 15:19 08/19/21 16:50 08/19/21 18:45 08/20/21 00:25 08/20/21 08:00 Assessment/Plan Assessment/Plan See free text. Critical Care: Critically Ill Patient CHAUNCEY LONGORIA MD Aug 20, 2021 09:06
[2021-08-20 10:19] LABS: ALBUMIN 3.1 GM/DL (3.2-4.5); BILIRUBIN,DIRECT 0.3 MG/DL (0.0-0.3); BILIRUBIN,INDIRECT 0.3 MG/DL; BILIRUBIN,TOTAL 0.6 MG/DL (0.1-1.0); TOTAL PROTEIN 5.4 GM/DL (6.4-8.2)
--- NOTE | 2021-08-20 10:21 | Progress Note - Surgery ---
ASHLEYCLEMENT 08/20/21 1021: Subjective Date Seen by a Provider: Aug 20, 2021 Time Seen by a Provider: 07:00 Subjective/Events-last exam Maurice was resting more comfortably today; he denies any pain and states his N/v is improved. He reports that his last episode of emesis was last night (08/19/21). He continues to want to rest and is eager to have an EGD done. We additionally discussed a gastric emptying study on Monday if he is still inpatient. He understood and agreed to this. Review of Systems General: Chills (states that he is frequently cold), Fatigue, Malaise HEENT: No Head Aches, No Visual Changes Pulmonary: No Dyspnea, No Cough Cardiovascular: No: Chest Pain, Palpitations Gastrointestinal: Nausea, Vomiting; No: Abdominal Pain Focused Exam Lactate Level 08/18/21 05:25: Lactic Acid Level 5.06*H 08/18/21 07:38: Lactic Acid Level 1.91 Respiratory: Chest Non Tender, Lungs Clear, Normal Breath Sounds, No Accessory Muscle Use, No Respiratory Distress Cardiovascular: Regular Rate, Rhythm, No Edema, No Gallop, No Murmur Peripheral Pulses: 2+ Radial Pulses (R), 2+ Radial Pulses (L) Skin: normal color, warm/dry Objective Exam Vital Signs Date Time Temp Pulse Resp B/P (MAP) Pulse Ox O2 Delivery O2 Flow Rate FiO2 08/20/21 10:00 106 16 158/108 100 Room Air 08/20/21 09:45 106 21 143/94 100 08/20/21 09:30 112 18 150/97 99 08/20/21 09:15 101 27 151/104 100 08/20/21 09:00 96 13 141/95 100 Room Air 08/20/21 08:45 103 23 152/104 99 08/20/21 08:30 103 24 139/94 99 08/20/21 08:20 98 Room Air 08/20/21 08:15 102 18 146/102 99 08/20/21 08:00 112 8 139/93 99 Room Air 08/20/21 08:00 36.6 08/20/21 07:45 91 8 147/91 99 08/20/21 07:30 95 24 157/101 99 08/20/21 07:23 99 Room Air 08/20/21 07:15 91 9 140/89 99 08/20/21 07:00 95 17 134/90 98 Room Air 08/20/21 07:00 91 08/20/21 06:45 96 18 128/91 99 08/20/21 06:30 131/94 08/20/21 06:15 94 10 135/94 99 08/20/21 06:00 98 16 135/94 98 Room Air 08/20/21 05:45 112 15 126/80 100 08/20/21 05:30 94 19 138/92 99 08/20/21 05:15 112 23 167/97 96 08/20/21 05:00 108 17 167/97 99 Room Air 08/20/21 04:45 95 12 131/90 99 08/20/21 04:30 94 15 148/87 99 08/20/21 04:15 136/91 08/20/21 04:00 99 Room Air 08/20/21 04:00 93 15 136/91 99 Room Air 08/20/21 03:45 112 29 153/105 99 08/20/21 03:30 94 21 132/92 99 08/20/21 03:15 96 19 130/92 99 08/20/21 03:00 96 18 130/92 99 Room Air 08/20/21 02:45 125/92 08/20/21 02:30 101 11 135/92 100 08/20/21 02:15 138/95 08/20/21 02:00 120 15 138/95 100 Room Air 08/20/21 01:45 114 18 133/78 99 08/20/21 01:30 97 0 125/85 99 08/20/21 01:15 95 15 126/85 98 08/20/21 01:00 106 19 126/85 99 Room Air 08/20/21 01:00 106 08/20/21 00:45 96 22 130/95 100 08/20/21 00:30 96 20 133/90 99 08/20/21 00:15 98 19 126/92 99 08/20/21 00:00 108 19 126/92 99 Room Air 08/20/21 00:00 99 Room Air 08/19/21 23:45 98 7 131/95 99 08/19/21 23:30 98 7 127/82 99 08/19/21 23:23 36.7 08/19/21 23:15 98 18 120/88 99 08/19/21 23:00 101 18 120/88 98 Room Air 08/19/21 22:45 113 7 127/92 98 08/19/21 22:30 98 19 126/80 100 08/19/21 22:15 117 23 146/102 97 08/19/21 22:00 122 18 146/102 100 Room Air 08/19/21 21:45 105 23 141/96 99 08/19/21 21:30 139/98 08/19/21 21:15 105 24 145/102 99 08/19/21 21:00 111 23 145/102 98 Room Air 08/19/21 20:45 109 21 128/85 99 08/19/21 20:30 108 6 139/90 98 08/19/21 20:15 107 21 131/86 96 08/19/21 20:00 108 24 131/86 99 Room Air 08/19/21 20:00 100 Room Air 08/19/21 19:45 112 30 145/99 99 08/19/21 19:44 37.4 08/19/21 19:30 117 29 147/99 99 08/19/21 19:15 115 26 151/99 100 08/19/21 19:00 126 08/19/21 19:00 126 20 151/99 100 Room Air 08/19/21 17:45 100 Room Air 08/19/21 16:00 37.5 137 28 125/70 100 Room Air 08/19/21 14:13 37.1 134 20 110/63 100 Room Air 08/19/21 14:00 101 26 157/100 98 Room Air 08/19/21 13:00 101 26 157/100 98 Room Air 08/19/21 12:00 37.2 08/19/21 12:00 24 136/86 98 Room Air 08/19/21 12:00 100 Room Air 08/19/21 11:00 114 168/106 100 Room Air I & O 08/20/21 07:00 Intake Total 7250 ml Output Total 3825 ml Balance 3425 ml Capillary Refill : Less Than 3 Seconds General Appearance: No Apparent Distress, Anxious, Chronically ill, Thin HEENT: PERRL/EOMI, Pharynx Normal Neck: Full Range of Motion, Non Tender, Supple Respiratory: Lungs Clear, Normal Breath Sounds Cardiovascular: Regular Rate, Rhythm, No Edema, No Gallop, No Murmur, Tachycardia Peripheral Pulses: 2+ Radial Pulses (R), 2+ Radial Pulses (L) Gastrointestinal: soft, tenderness (Minimally diffuse) Extremity: Normal Capillary Refill, Normal Range of Motion, Non Tender, No Calf Tenderness, No Pedal Edema Neurologic/Psychiatric: Alert, Oriented x3, No Motor/Sensory Deficits, Depressed Affect Skin: Normal Color, Warm/Dry Lymphatic: No Adenopathy (axillary and cervical) Results Lab Laboratory Tests 08/19/21 11:01: Glucometer 258H 08/19/21 13:56: Glucometer 216H 08/19/21 15:19: Sodium Level 132L, Potassium Level 4.1, Chloride Level 97L, Carbon Dioxide Level 14L, Anion Gap 21H, Blood Urea Nitrogen 9, Creatinine 0.98, Estimat Glomerular Filtration Rate 89, BUN/Creatinine Ratio 9, Glucose Level 396H, Calcium Level 8.7 08/19/21 16:12: Glucometer 379H 08/19/21 16:45: Glucometer 406*H 08/19/21 16:50: White Blood Count 17.7H, Red Blood Count 4.08L, Hemoglobin 11.3L, Hematocrit 34L , Mean Corpuscular Volume 82, Mean Corpuscular Hemoglobin 28, Mean Corpuscular Hemoglobin Concent 34, Red Cell Distribution Width 13.3, Platelet Count 293, Mean Platelet Volume 8.9L, Sodium Level 133L, Potassium Level 4.1, Chloride Level 97L, Carbon Dioxide Level 12L, Anion Gap 24H, Blood Urea Nitrogen 10, Creatinine 1.07, Estimat Glomerular Filtration Rate 80, BUN/Creatinine Ratio 9, Glucose Level 408*H, Calcium Level 8.6, Beta-Hydroxybutyrate (Chem panel) 8.72H 08/19/21 17:14: Glucometer 297H 08/19/21 17:49: Glucometer 220H 08/19/21 18:00: Urine Color YELLOW, Urine Clarity CLEAR, Urine pH 6.0, Urine Specific Gallagher 1.020, Urine Protein NEGATIVE, Urine Glucose (UA) 3+H, Urine Ketones 3+H, Urine Nitrite NEGATIVE, Urine Bilirubin NEGATIVE, Urine Urobilinogen 0.2, Urine Leukocyte Esterase NEGATIVE, Urine RBC (Auto) 2+H, Urine RBC 2-5H, Urine WBC NONE, Urine Crystals NONE, Urine Bacteria NEGATIVE, Urine Casts NONE, Urine Mucus NEGATIVE, Urine Culture Indicated NO 08/19/21 18:41: Glucometer 152H 08/19/21 18:45: Sodium Level 136, Potassium Level 3.6, Chloride Level 103, Carbon Dioxide Level 19L, Anion Gap 14, Blood Urea Nitrogen 9, Creatinine 0.87, Estimat Glomerular Filtration Rate 102, BUN/Creatinine Ratio 10, Glucose Level 152H, Calcium Level 8.2L 08/19/21 19:47: Glucometer 157H 08/19/21 20:48: Glucometer 149H 08/19/21 21:52: Glucometer 155H 08/19/21 22:50: Glucometer 152H 08/19/21 23:56: Glucometer 171H 08/20/21 00:25: Sodium Level 135, Potassium Level 3.5L, Chloride Level 104, Carbon Dioxide Level 23, Anion Gap 8, Blood Urea Nitrogen 5L, Creatinine 0.75, Estimat Glomerular Filtration Rate 121, BUN/Creatinine Ratio 7, Glucose Level 142H, Calcium Level 8.0L, Magnesium Level 2.0 08/20/21 00:51: Glucometer 146H 08/20/21 01:50: Glucometer 128H 08/20/21 02:56: Glucometer 145H 08/20/21 03:49: Glucometer 133H 08/20/21 04:56: Glucometer 187H 08/20/21 05:50: Glucometer 155H 08/20/21 06:48: Glucometer 152H 08/20/21 07:47: Glucometer 166H 08/20/21 08:00: Sodium Level 136, Potassium Level 3.8, Chloride Level 105, Carbon Dioxide Level 23, Anion Gap 8, Blood Urea Nitrogen 3L, Creatinine 0.68, Estimat Glomerular Filtration Rate 135, BUN/Creatinine Ratio 4, Glucose Level 155H, Calcium Level 8.4L 08/20/21 08:43: Glucometer 126H Microbiology 08/18/21 MRSA Screen - Final, Complete MRSA not isolated 08/18/21 Urine Culture - Final, Complete NO GROWTH 08/18/21 Blood Culture - Preliminary, Resulted No growth Meds Item Value Date Time Potassium Chloride 50 ml @ 0 mls/hr 08/20/21 0600 Magnesium Sulfate/ 100 ml @ 0 mls/hr 08/20/21 0600 Dextrose DAILY@0600/IV Potassium Chloride 40 meq 08/20/21 0600 (K Dur Tablet) DAILY@0600/PO Potassium Chloride 50 ml @ 25 mls/hr 08/19/21 1630 Insulin Human 100 ml @ 1 mls/hr 08/19/21 1630 Regular Q24H/IV 08/19/21 1753 Dextrose/Sodium 1,000 ml @ 250 mls/hr 08/19/21 1630 Chloride UD/IV 08/20/21 0752 Sodium Chloride 1,000 ml @ 250 mls/hr 08/19/21 1630 Metoclopramide HCl 10 mg 08/18/21 2200 (Reglan Q6H/IVP 08/20/21 0913 Injection) Albuterol Sulfate 2.5 mg 08/18/21 1100 (Proventil RTQ4HR PRN/INH Pre-Mix Nebs (Rt)) Ondansetron HCl 8 mg 08/18/21 1015 (Zofran Q4H PRN/IVP 08/19/21 1351 Injection (Sdv)) Assessment/Plan Assessment/Plan Assessment/Plan T1DM, poorly controlled DKA Nausea, vomiting, 2/2 to suspected gastroparesis Gerd Plan patient to be n.p.o. after midnight will obtain consent for EGD all indicated procedures. Gastric emptying study for suspected gastroparesis need to be scheduled. Continue supportive measures OG CONN DO 08/20/21 1213: Subjective Subjective/Events-last exam Feeling better. Less n/v. Abdominal pain improved. Denies fever sweats chills shortness of breath or chest pain at this time. Objective Exam General Appearance: No Apparent Distress, Anxious, Chronically ill, Thin HEENT: PERRL/EOMI, Normal ENT Inspection Neck: Full Range of Motion, Non Tender Respiratory: Chest Non Tender, No Accessory Muscle Use, No Respiratory Distress Cardiovascular: Regular Rate, Rhythm, No JVD Gastrointestinal: soft, tenderness (Minimally diffuse, less than yesterday) Extremity: Normal Capillary Refill, Non Tender Neurologic/Psychiatric: Alert, Oriented x3 Skin: Normal Color, Warm/Dry Lymphatic: No Adenopathy (axillary and cervical) Assessment/Plan Assessment/Plan Assessment/Plan T1DM, poorly controlled DKA Nausea, vomiting, 2/2 to suspected gastroparesis Gerd Plan patient to be n.p.o. after midnight will obtain consent for EGD all indicated procedures. Gastric emptying study for suspected gastroparesis need to be scheduled. Continue supportive measures Supervisory-Addendum Brief Verification & Attestation Participated in pt care: history, MDM, physical Personally performed: exam, history, MDM, supervision of care Care discussed with: Medical Student Procedures: n/a Results interpretation: Verified all documentation Verification and Attestation of Medical Student E/M Service A medical student performed and documented this service in my presence. I re viewed and verified all information documented by the medical student and made modifications to such information, when appropriate. I personally performed the physical exam and medical decision making. Og Conn, Aug 20, 2021,12:13 CLEMENT RAMIREZ Aug 20, 2021 10:21 OG CONN DO Aug 20, 2021 12:13
[2021-08-20] MEDS ORDERED: NS IV 500 ML 500 ML ONE (13:48)
[2021-08-20] MEDS ORDERED: MIDAZOLAM 2 MG/2 ML (VERSED) VIAL ONE (13:55)
[2021-08-20] MEDS ORDERED: proPOfol 200 MG/20 ML (DIPRIVAN) VIAL IV ONE (13:56)
[2021-08-20] MEDS ORDERED: NS IV 500 ML 500 ML IV PRN (14:00)
[2021-08-20] MEDS ORDERED: HURRICAINE EXT TUBE (BENZOCAINE) XX PRN (14:00)
[2021-08-20 14:15] VITALS: BP 132/81
[2021-08-20 14:20] VITALS: BP 139/85
[2021-08-20] MEDS ORDERED: NS IV 500 ML 500 ML IV SCH (14:45)
--- NOTE | 2021-08-20 14:50 | Anesthesia-General Post-Op ---
MAC Patient Condition Mental Status/LOC: Same as Preop Cardiovascular: Satisfactory Nausea/Vomiting: Absent Respiratory: Satisfactory Pain: Controlled Complications: Absent Post Op Complications Complications None Follow Up Care/Instructions Patient Instructions None needed. Anesthesiology Discharge Order Discharge Order Patient is doing well, no complaints, stable vital signs, no apparent adverse anesthesia problems. No complications reported per nursing. KITA JAIN CRNA Aug 20, 2021 14:50
[2021-08-20] MEDS: SUCRALFATE 1 GM (CARAFATE) TAB PO SCH ×2 (15:33→21:44)
[2021-08-20] MEDS: inSUlin ASPART (NovoLOG) 1 UNIT/0.01 ML (CHARGE PER UNIT) SC SCH (20:29)
--- NOTE | 2021-08-20 22:04 | OPERATIVE REPORT ---
DATE OF SERVICE: 08/20/2021 PREOPERATIVE DIAGNOSES: Gastroesophageal reflux disease, questionable gastroparesis. POSTOPERATIVE DIAGNOSES: Benign gastric polyp, reflux esophagitis. PROCEDURE: EGD with biopsies. SURGEON: Og Conn DO ANESTHESIA: Per CODE AND TEST CLERK. ESTIMATED BLOOD LOSS: None. COMPLICATIONS: None. INDICATIONS: The patient is a 31-year-old male with diabetic ketoacidosis. He also has gastroesophageal reflux disease, who has been having nausea, vomiting and suspected to have gastroparesis, has been requested an EGD and EGD to be performed. He understands risks and benefits of procedure and wishes to proceed. Consent was signed in the chart. DESCRIPTION OF PROCEDURE: The patient was taken to the endoscopy suite, placed in left lateral recumbent position. Timeout was performed. Scope was inserted in mouth, down the esophagus, stomach and into the duodenum without difficulty. No polyps, masses or ulcerations within the duodenum. Scope was slowly retracted back to stomach where it was further insufflated. Stomach had a dilated appearance. One benign-appearing gastric polyp was present. Biopsy of the antrum was taken. Scope was retroflexed noting no other pathology. Scope was returned to its normal position, slowly withdrawn to distal esophagus, which had significant reflux esophagitis changes. Biopsies were obtained. Scope was then slowly retracted back until completely removed. The patient tolerated procedure well without any complications and taken to recovery room in stable condition. RECOMMENDATIONS: The patient to have further workup of gastric emptying study for workup for gastroparesis. The patient will continue medical management of reflux. CC: [facility] -- requested, unable to deliver. Job ID: [id number] DocumentID: [id number] Dictated Date: 08/20/2021 14:29:25 Hay Stacker Operator Date: 08/20/2021 22:04:34 Dictated By: OG CONN DO
[2021-08-21] MEDS: inSUlin ASPART (NovoLOG) 1 UNIT/0.01 ML (CHARGE PER UNIT) SC SCH ×6 (00:08→20:55)
--- NOTE | 2021-08-21 02:46 | Progress Note - Hospitalist ---
AYSE VALLE MED STUDENT 08/21/21 0246: Subjective HPI/CC On Admission Date Seen by Provider: Aug 20, 2021 Time Seen by Provider: 09:30 CC: DKA HPI: This is a 34yoWM long standing type 1 DM out of control status most of the time who presents to the ER with nausea and vomiting found to have DKA with bicarb less than 7. He has received an aggressive IV fluid regimen, a picc line will be placed. Currently he is doing okay but appears to be very weakened and frail. Pt will be at high risk for respiratory failure. Subjective/Events-last exam Pt awake and alert, NAD. No complaints of pain. Has continued to be nauseated, but denies vomiting or abd pain. He was transferred to the floor yesterday but was brought back up to the ICU due to uncontrolled glucose. He has been NPO since midnight for EGD today. No questions/concerns. Review of Systems General: No Chills HEENT: No Head Aches, No Visual Changes, No Eye Pain Pulmonary: No Dyspnea, No Cough Cardiovascular: No: Chest Pain, Palpitations Gastrointestinal: No: Nausea, Vomiting, Abdominal Pain Genitourinary: No Dysuria, No Incontinence, No Hematuria Musculoskeletal: No: neck pain, shoulder pain, back pain Neurological: No: Weakness, Numbness, Confusion Focused Exam Lactate Level 08/18/21 05:25: Lactic Acid Level 5.06*H 08/18/21 07:38: Lactic Acid Level 1.91 Objective Exam Vital Signs Vital Signs Date Time Temp Pulse Resp B/P (MAP) Pulse Ox O2 Delivery O2 Flow Rate FiO2 08/21/21 02:00 118 23 120/72 98 Room Air 08/20/21 23:47 36.6 08/20/21 14:15 10 08/18/21 10:48 21 Capillary Refill : Less Than 3 Seconds General Appearance: No Apparent Distress, WD/WN, Moderate Distress, Thin HEENT: PERRL/EOMI, Normal ENT Inspection, Pharynx Normal Neck: Full Range of Motion, Normal Inspection, Non Tender, Supple Respiratory: Chest Non Tender, Lungs Clear, Normal Breath Sounds, No Accessory Muscle Use, No Respiratory Distress Cardiovascular: No Edema, No JVD, Normal Peripheral Pulses, Tachycardia Gastrointestinal: Normal Bowel Sounds, Non Tender, Soft Rectal: Deferred Back: Normal Inspection, No CVA Tenderness, No Vertebral Tenderness Extremity: Normal Capillary Refill, Normal Inspection, Normal Range of Motion, Non Tender, No Calf Tenderness Neurologic/Psychiatric: Alert, Oriented x3, No Motor/Sensory Deficits, Normal Mood/Affect Skin: Normal Color, Warm/Dry Lymphatic: No Adenopathy Results/Procedures Lab Laboratory Tests 08/20/21 08:00 Patient resulted labs reviewed. Assessment/Plan Assessment and Plan Assess & Plan/Chief Complaint T1DM, DKA EICU following ICU management/protocol; insulin drip, transition to SQ when able Monitor VS/labs Nausea/Vomiting General surgery following EGD today Gastric emptying study LORE JOSÉ DO 08/21/21 0907: Subjective Subjective/Events-last exam Bicarb good Transition from insulin drip to subcu insulin EGD completed Assessment/Plan Assessment and Plan Assess & Plan/Chief Complaint Insulin drip transition to subcu Supervisory-Addendum Brief Verification & Attestation Participated in pt care: history, MDM, physical Personally performed: exam, history, MDM, supervision of care Care discussed with: Medical Student Procedures: n/a Results interpretation: Verified all documentation Verification and Attestation of Medical Student E/M Service A medical student performed and documented this service in my presence. I reviewed and verified all information documented by the medical student and made modifications to such information, when appropriate. I personally performed the physical exam and medical decision making. Lore José, Aug 21, 2021,09:06 AYSE VALLE MED STUDENT Aug 21, 2021 02:46 LORE JOSÉ DO Aug 21, 2021 09:07
[2021-08-21] MEDS: SUCRALFATE 1 GM (CARAFATE) TAB PO SCH ×4 (05:47→21:04)
[2021-08-21] MEDS: METOCLOPRAMIDE INJ 10 MG/2 ML (REGLAN) IVP SCH ×4 (05:48→21:04)
[2021-08-21 06:32] LABS: BASOPHILS % (AUTO) 0 % (0-10); EOSINOPHILS % (AUTO) 0 % (0-10); HEMATOCRIT 33 % (40-54); HEMOGLOBIN 11.2 g/dL (13.3-17.7); LYMPHOCYTES % (AUTO) 8 % (12-44); MEAN CORPUSCULAR HEMOGLOBIN 28 pg (25-34); MEAN CORPUSCULAR HGB CONC 34 g/dL (32-36); MEAN CORPUSCULAR VOLUME 82 fL (80-99); MEAN PLATELET VOLUME 9.7 fL (9.0-12.2); MONOCYTES # (AUTO) 0.6 10^3/uL (0.0-1.0); MONOCYTES % (AUTO) 5 % (0-12); NEUTROPHILS # (AUTO) 10.9 10^3/uL (1.8-7.8); NEUTROPHILS % (AUTO) 86 % (42-75); PLATELET COUNT 242 10^3/uL (130-400); WHITE BLOOD COUNT 12.6 10^3/uL (4.3-11.0)
[2021-08-21 06:34] LABS: ALBUMIN 3.1 GM/DL (3.2-4.5); BILIRUBIN,TOTAL 0.6 MG/DL (0.1-1.0); CALCIUM 8.4 MG/DL (8.5-10.1); CREATININE SERUM 0.7 MG/DL (0.60-1.30); MAGNESIUM 1.9 MG/DL (1.6-2.4); PHOSPHORUS 2.8 MG/DL (2.3-4.7); POTASSIUM 3.8 MMOL/L (3.6-5.0); TOTAL PROTEIN 5.8 GM/DL (6.4-8.2)
[2021-08-21] MEDS: MAGNESIUM 1 GM/100 ML IVPB 100 ML IV SCH (06:52)
[2021-08-21] MEDS: POTASSIUM CL 10MEQ/50ML IVPB 50 ML IV SCH (06:52)
[2021-08-21] MEDS: KCL 20 MEQ TAB (K-DUR) PO SCH (06:54)
[2021-08-21] MEDS: PANTOPRAZOLE 40 MG (PROTONIX) VIAL IV SCH (08:32)
--- NOTE | 2021-08-21 09:54 | Tele-ICU Progress Note ---
Subjective Date Seen by a Provider: Aug 21, 2021 Time Seen by a Provider: 09:54 Subjective/Events-last exam Today he is feeling much better. Denies any chest pain, abdominal pain or nausea vomiting. His blood sugars are improved and he is off the insulin drip per 24 hours. His anion gap closed. Hemodynamically stable. His DKA resolved. Review of Systems ROS PER ATTENDING Sepsis Event Evaluation Height, Weight, BMI Height: 5'11.00" Weight: 126lbs. 0.0oz. [id number]; 16.21 BMI Method:Stated Exam Exam Patient acknowledged, consented, and participated in this virtual visit which was conducted using real time audio/video Vital Signs Date Time Temp Pulse Resp B/P (MAP) Pulse Ox O2 Delivery O2 Flow Rate FiO2 08/21/21 09:00 134 20 151/95 97 Room Air 08/21/21 08:00 112 22 144/103 99 Room Air 08/21/21 08:00 98 Room Air 08/21/21 07:39 36.6 08/21/21 07:00 109 08/21/21 07:00 101 27 116/69 98 Room Air 08/21/21 06:00 108 16 158/107 98 Room Air 08/21/21 05:00 108 15 144/101 98 Room Air 08/21/21 04:00 99 27 116/76 97 Room Air 08/21/21 04:00 97 Room Air 08/21/21 03:00 115 27 124/72 98 Room Air 08/21/21 02:00 118 23 120/72 98 Room Air 08/21/21 01:00 125 08/21/21 01:00 118 26 112/66 98 Room Air 08/21/21 00:00 97 Room Air 08/21/21 00:00 109 18 130/81 99 Room Air 08/20/21 23:47 36.6 08/20/21 23:00 120 8 132/82 99 Room Air 08/20/21 22:00 130 14 118/91 98 Room Air 08/20/21 21:00 115 21 150/102 99 Room Air 08/20/21 20:30 37.4 123 10 130/84 98 Room Air 08/20/21 20:00 97 Room Air 08/20/21 19:00 116 30 139/98 98 Room Air 08/20/21 19:00 116 08/20/21 18:45 116 20 161/106 98 Room Air 08/20/21 18:30 112 13 146/90 97 Room Air 08/20/21 18:15 117 30 151/91 98 Room Air 08/20/21 18:00 123 25 149/105 98 Room Air 08/20/21 17:45 131 14 140/92 96 Room Air 08/20/21 17:30 120 30 141/94 99 Room Air 08/20/21 17:15 111 10 151/110 98 Room Air 08/20/21 17:00 114 19 159/109 99 Room Air 08/20/21 16:45 121 12 150/109 96 Room Air 08/20/21 16:30 107 14 144/100 98 Room Air 08/20/21 16:15 101 25 160/109 99 Room Air 08/20/21 16:00 120 19 159/115 98 Room Air 08/20/21 15:55 36.5 08/20/21 15:45 112 11 155/105 97 Room Air 08/20/21 15:30 103 20 158/105 98 Room Air 08/20/21 15:17 Room Air 08/20/21 15:15 99 20 169/111 96 Room Air 08/20/21 15:00 110 25 148/108 97 Room Air 08/20/21 14:45 103 26 164/106 97 08/20/21 14:30 115 130/104 08/20/21 14:20 108 20 94 Room Air 08/20/21 14:15 112 20 96 OxyMask 10 08/20/21 13:30 105 20 150/105 99 08/20/21 13:15 100 23 163/110 100 08/20/21 13:00 102 8 157/106 98 Room Air 08/20/21 12:45 106 11 148/101 97 08/20/21 12:37 100 08/20/21 12:30 101 20 143/91 99 08/20/21 12:15 98 27 140/87 99 08/20/21 12:00 105 28 152/106 98 Room Air 08/20/21 12:00 36.5 08/20/21 12:00 99 Room Air 08/20/21 11:45 21 144/106 99 08/20/21 11:30 103 17 149/108 99 08/20/21 11:15 102 15 156/110 99 11/5/21 11:00 105 15 135/92 99 Room Air 08/20/21 10:45 105 17 145/101 100 08/20/21 10:30 112 27 140/104 98 08/20/21 10:15 107 6 160/105 99 08/20/21 10:00 106 16 158/108 100 Room Air I & O 08/21/21 07:00 Intake Total 3440 ml Output Total 4150 ml Balance -710 ml Height & Weight Height: 5'11.00" Weight: 126lbs. 0.0oz. 57.130601gn; 16.21 BMI Method:Stated General Appearance: No Apparent Distress, WD/WN, Moderate Distress, Thin HEENT: PERRL/EOMI, Normal ENT Inspection, Pharynx Normal Neck: Full Range of Motion, Normal Inspection, Non Tender, Supple Respiratory: Chest Non Tender, Lungs Clear, Normal Breath Sounds, No Accessory Muscle Use, No Respiratory Distress Cardiovascular: No Edema, No JVD, Normal Peripheral Pulses, Tachycardia Capillary Refill: Less Than 3 Seconds Peripheral Pulses: 2+ Radial Pulses (R), 2+ Radial Pulses (L) Gastrointestinal: soft, tenderness (Minimally diffuse, less than yesterday) Extremity: Normal Capillary Refill, Normal Inspection, Normal Range of Motion, Non Tender, No Calf Tenderness Neurologic/Psychiatric: Alert, Oriented x3, No Motor/Sensory Deficits, Normal Mood/Affect Skin: Normal Color, Warm/Dry Lymphatic: No Adenopathy Other comments PE PER ATTENDING Results Lab Laboratory Tests 08/19/21 15:19 08/19/21 16:50 08/19/21 18:45 08/20/21 00:25 08/20/21 08:00 08/21/21 05:48 Assessment/Plan Assessment/Plan Video visit made and discussed with the patient and also with the RN. Impression 1. Diabetic ketoacidosis improved. Recommendations 1. Continue long-acting insulin and sliding scale coverage 2. IV fluids per attending physician 3. From critical care point of view he may be transferred to regular medical floor. Critical Care: Critically Ill Patient Time spent with patient (mins): 15 ALLYN WALTON MD Aug 21, 2021 09:54
--- NOTE | 2021-08-21 11:41 | Progress Note - Hospitalist ---
Subjective HPI/CC On Admission Date Seen by Provider: Aug 21, 2021 Time Seen by Provider: 11:45 CC: DKA HPI: This is a 34yoWM long standing type 1 DM out of control status most of the time who presents to the ER with nausea and vomiting found to have DKA with bicarb less than 7. He has received an aggressive IV fluid regimen, a picc line will be placed. Currently he is doing okay but appears to be very weakened and frail. Pt will be at high risk for respiratory failure. Subjective/Events-last exam Patient doing well Eating well Moving to fourth floor Bicarb good No DKA at this current time Review of Systems General: Fatigue Objective Exam Vital Signs Vital Signs Date Time Temp Pulse Resp B/P (MAP) Pulse Ox O2 Delivery O2 Flow Rate FiO2 08/22/21 04:24 36.6 106 20 155/90 100 Room Air 08/20/21 14:15 10 08/18/21 10:48 21 Capillary Refill : Less Than 3 Seconds General Appearance: No Apparent Distress, WD/WN, Chronically ill, Thin Respiratory: Lungs Clear, Normal Breath Sounds Cardiovascular: Regular Rate, Rhythm Neurologic/Psychiatric: Alert, Oriented x3, No Motor/Sensory Deficits, Normal Mood/Affect Results/Procedures Lab Patient resulted labs reviewed. Assessment/Plan Assessment and Plan Assess & Plan/Chief Complaint Assessment: DKA recurrent type Nausea and vomiting EGD unremarkable Thin cachectic status Plan: Transfer to fourth floor Subcu insulin Critical Care Critically Ill Patient ARNAVNORAH LI Aug 21, 2021 11:41
[2021-08-22] MEDS: METOCLOPRAMIDE INJ 10 MG/2 ML (REGLAN) IVP SCH ×2 (04:06→10:19)
[2021-08-22] MEDS ORDERED: DEXTROSE 50% 50 ML (IMS) SYR ONE (05:12)
[2021-08-22] MEDS ORDERED: DEXTROSE 50% 50 ML (IMS) SYR IV ONE (05:30)
[2021-08-22] MEDS: SUCRALFATE 1 GM (CARAFATE) TAB PO SCH ×2 (05:36→10:55)
[2021-08-22] MEDS: inSUlin ASPART (NovoLOG) 1 UNIT/0.01 ML (CHARGE PER UNIT) SC SCH ×2 (05:37→11:00)
[2021-08-22 06:10] LABS: BASOPHILS % (AUTO) 0 % (0-10); EOSINOPHILS # (AUTO) 0.1 10^3/uL (0.0-0.3); EOSINOPHILS % (AUTO) 1 % (0-10); HEMATOCRIT 34 % (40-54); HEMOGLOBIN 11.4 g/dL (13.3-17.7); LYMPHOCYTES # (AUTO) 1.1 10^3/uL (1.0-4.0); LYMPHOCYTES % (AUTO) 14 % (12-44); MEAN CORPUSCULAR HEMOGLOBIN 28 pg (25-34); MEAN CORPUSCULAR HGB CONC 33 g/dL (32-36); MEAN CORPUSCULAR VOLUME 83 fL (80-99); MEAN PLATELET VOLUME 9.1 fL (9.0-12.2); MONOCYTES # (AUTO) 0.5 10^3/uL (0.0-1.0); MONOCYTES % (AUTO) 7 % (0-12); NEUTROPHILS # (AUTO) 6.1 10^3/uL (1.8-7.8); NEUTROPHILS % (AUTO) 78 % (42-75); PLATELET COUNT 210 10^3/uL (130-400); WHITE BLOOD COUNT 7.8 10^3/uL (4.3-11.0)
[2021-08-22 06:30] LABS: ALBUMIN 3.3 GM/DL (3.2-4.5); BILIRUBIN,TOTAL 0.4 MG/DL (0.1-1.0); CALCIUM 8.5 MG/DL (8.5-10.1); CREATININE SERUM 0.8 MG/DL (0.60-1.30); POTASSIUM 4.7 MMOL/L (3.6-5.0)
[2021-08-22] MEDS: PANTOPRAZOLE 40 MG (PROTONIX) VIAL IV SCH (08:24)
[2021-08-22 11:12] VITALS: BP 141/75
[2021-08-22] MEDS ORDERED: SUCR1TAB PO (11:48)
--- NOTE | 2021-08-22 11:49 | Discharge Summary ---
Discharge Summary Hospital Course Was the Problem List Reviewed?: Yes Problems/Dx: (1) Diabetic ketoacidosis Status: Resolved (2) Transaminitis Status: Chronic (3) Nausea & vomiting Status: Acute (4) Gastroparesis due to DM Status: Chronic Hospital Course Date of Admission: Aug 18, 2021 at 06:27 Admission Diagnosis : [facility] Phys[facility] [place] Date of Discharge: 08/22/21 Discharge Diagnosis: DKA, nausea and vomiting Hospital Course: Patient had a lengthy hospital course. He was admitted for DKA with nausea and vomiting. Insulin drip initiated in the ICU and resolved the acidosis but he continued to have nausea vomiting unable to eat he was transferred back into the ICU for DKA. Patient ultimately had EGD performed. Insulin drip ultimately discontinued after acidosis completely resolved and he was eating and drinking and patient was deemed stable for discharge. Labs and Pending Lab Test: Laboratory Tests 08/21/21 15:40: Glucometer 135H 08/21/21 20:49: Glucometer 170H 08/22/21 05:10: Glucometer 39*L 08/22/21 05:58: White Blood Count 7.8, Red Blood Count 4.12L, Hemoglobin 11.4L, Hematocrit 34L, Mean Corpuscular Volume 83, Mean Corpuscular Hemoglobin 28, Mean Corpuscular Hemoglobin Concent 33, Red Cell Distribution Width 12.7, Platelet Count 210, Mean Platelet Volume 9.1, Immature Granulocyte % (Auto) 0, Neutrophils (%) (Auto) 78H, Lymphocytes (%) (Auto) 14, Monocytes (%) (Auto) 7, Eosinophils (%) (Auto) 1, Basophils (%) (Auto) 0, Neutrophils # (Auto) 6.1, Lymphocytes # (Auto) 1.1, Monocytes # (Auto) 0.5, Eosinophils # (Auto) 0.1, Basophils # (Auto) 0.0, Immature Granulocyte # (Auto) 0.0, Sodium Level 132L, Potassium Level 4.7, Chloride Level 99, Carbon Dioxide Level 21, Anion Gap 12, Blood Urea Nitrogen 9, Creatinine 0.80, Estimat Glomerular Filtration Rate 112, BUN/Creatinine Ratio 11, Glucose Level 288H, Calcium Level 8.5, Corrected Calcium 9.1, Total Bilirubin 0.4, Aspartate Amino Transf (AST/SGOT) 9, Alanine Aminotransferase (ALT/SGPT) 7, Alkaline Phosphatase 76, Total Protein 6.0L, Albumin 3.3 08/22/21 10:56: Glucometer 227H Microbiology 08/20/21 Blood Culture - Preliminary, Resulted No growth 08/18/21 MRSA Screen - Final, Complete MRSA not isolated 08/18/21 Urine Culture - Final, Complete NO GROWTH Home Meds Active Reported Lisinopril 10 Mg Tablet 10 Mg PO DAILY Metoclopramide HCl 10 Mg Tablet 10 Mg PO BIDAC Pantoprazole Sodium 40 Mg Tablet.dr 40 Mg PO DAILY Novolog (Insulin Aspart) 100 Unit/1 Ml Susp Unit SQ TIDAC MDD 30 UNITS USES 2 UNITS PER EVERY CARB Levemir (Insulin Determir) 1,000 Units/10 Ml Soln 15 Units SQ HS Assessment/Pt Instructions PCP in 1 week Discharge Planning: <30 minutes discharge planning Discharge Instructions Discharge Diet: ADA Diet Activity as Tolerated: Yes Discharge Physical Examination Vital Signs Vital Signs Date Time Temp Pulse Resp B/P (MAP) Pulse Ox O2 Delivery O2 Flow Rate FiO2 08/22/21 11:12 37.2 97 18 141/75 (97) 98 Room Air 08/20/21 14:15 10 08/18/21 10:48 21 General Appearance: No Apparent Distress, WD/WN, Chronically ill Allergies: Coded Allergies: Penicillins (Verified Allergy, Unknown, 05/23/06) Discharge Summary Date of Admission Aug 18, 2021 at 06:27 Date of Discharge Discharge Date: Aug 22, 2021 Admission Diagnosis Assessment: DKA Acute kidney injury Plan: ICU protocol Supportive care Discharge Diagnosis Assessment: DKA recurrent type Nausea and vomiting EGD unremarkable Thin cachectic status Plan: Transfer to fourth floor Subcu NORAH Zhang DO Aug 22, 2021 11:49
== END 2021-08-22 12:50 | disposition home or self-care (01) | DRG 638 ==
LOC: EDUNIT# 04:28 → ER 04:30 → ICU 06:27 → 4TH 08-19 13:01 → ICU 08-19 16:53 → 4TH 08-21 15:25
PROVIDERS: ADMIT Internal Medicine; ATTEND Internal Medicine
PROC: 0DB68ZX Excision of Stomach, Via Natural or Artificial Opening Endoscopic, Diagnostic (ICD-10-PCS; principal; 2021-08-20 13:55)
DX: E10.10 Type 1 diabetes mellitus with ketoacidosis without coma (principal); I42.9 Cardiomyopathy, unspecified; N17.9 Acute kidney failure, unspecified; Z79.4 Long term (current) use of insulin; Z79.899 Other long term (current) drug therapy; I10 Essential (primary) hypertension; E10.43 Type 1 diabetes mellitus with diabetic autonomic (poly)neuropathy; K31.84 Gastroparesis; D72.829 Elevated white blood cell count, unspecified; K21.00 Gastro-esophageal reflux disease with esophagitis, without bleeding; D13.1 Benign neoplasm of stomach
CPT/HCPCS: 36415; 36569; 71045; 76937; 80048; 80053; 80076; 80306; 81000; 82010; 82805; 82947; 83036; 83605; 83690; 83735; 84100; 85007; 85025; 85027; 86141; 87040; 87081; 87088; 87636; 94760; 99291

== ENCOUNTER 2021-10-22 13:58 | Inpatient (IN) | payer SELFPAY ==
[~2021-10-22] VITALS: Ht 180 cm; Wt 53.9 kg
[~2021-10-22 13:58] MED LIST changes: -LISI-729 PO; +LISI5TAB20 PO; +SUCR1TAB PO
[2021-10-22] MEDS ORDERED: NS IV 1000 ML 1,000 ML IV SCH ×2 (14:15→15:30)
--- NOTE | 2021-10-22 14:16 | ED General ---
General Stated Complaint: DKA Source of Information: Patient Exam Limitations: No Limitations History of Present Illness Date Seen by Provider: Oct 22, 2021 Time Seen by Provider: 14:02 Initial Comments Patient is a 31-year-old type I diabetic who presents to the emergency department with complaint of "I think I am in DKA". Patient states its been a couple of months since his last episode of DKA. He states he has a brittle diabetic. He states he woke up with symptoms this morning of abdominal pain and too numerous to count episodes of vomiting. He feels short of breath. He did take 6 units of NovoLog this morning to try to bring his blood sugar down from the 380 range to normal. No medications for nausea. He complains of feeling lightheaded and dizzy, still nauseous. No diarrhea. He states decreased urination. No reported fevers, chills or URI symptoms. Complains of dry mouth. Denies any contacts with COVID-positive persons. He is Moderna vaccinated in January 2021. He lives with his mom who is also vaccinated. He has not had a booster. Denies alcohol or illicit drugs including marijuana. He does vape. All other review of systems reviewed and negative except as stated Timing/Duration: 4-6 Hours Severity: Severe Associated Systoms: Headaches, Loss of Appetite, Malaise, Nausea/Vomiting, Shortness of Air Allergies and Home Medications Allergies Coded Allergies: Penicillins (Verified Allergy, Unknown, 05/23/06) Patient Home Medication List Home Medication List Reviewed: Yes Insulin Aspart (Novolog) 100 Unit/1 Ml Susp, UNIT SQ TIDAC, (Reported) Entered as Reported by: NICOLLE MUNSON on 11/28/19 1021 Insulin Determir (Levemir) 1,000 Units/10 Ml Soln, 15 UNITS SQ HS, (Reported) Entered as Reported by: NICOLLE MUNSON on 11/28/19 1021 Lisinopril (Lisinopril) 10 Mg Tablet, 10 MG PO DAILY, (Reported) Entered as Reported by: YUMIKO SNOW on 08/18/21 1159 Metoclopramide HCl (Metoclopramide HCl) 10 Mg Tablet, 10 MG PO BIDAC, (Reported) Entered as Reported by: DANNIE PREDOMO on 01/11/21 0952 Pantoprazole Sodium (Pantoprazole Sodium) 40 Mg Tablet.dr, 40 MG PO DAILY, (Reported) Entered as Reported by: DANNIE PERDOMO on 01/11/21 0952 Sucralfate (Sucralfate) 1 Gm Tablet, 1 GM PO ACHS Prescribed by: NORAH JOSÉ on 08/22/21 1148 Review of Systems Review of Systems Constitutional: see HPI, malaise, weakness EENTM: other (dry mouth) Respiratory: short of breath Cardiovascular: no symptoms reported Gastrointestinal: nausea, vomiting Genitourinary: decreased output Musculoskeletal: no symptoms reported Skin: no symptoms reported Psychiatric/Neurological: No Symptoms Reported All Other Systems Reviewed Negative Unless Noted: Yes Past Dzjseon-Cnspvk-Nfhono Hx Immunizations Up To Date Tetanus Booster (TDap): Unknown PED Vaccines UTD: No First/Initial COVID19 Vaccinat: 01/15/21 Second COVID19 Vaccination Pierre: 02/04/21 Seasonal Allergies Seasonal Allergies: No Past Medical History Surgery/Hospitalization HX: TYPE 1 DM HTN Surgeries: No Respiratory: Yes Pneumonia Currently Using CPAP: No Currently Using BIPAP: No Cardiac: Yes (CARDIOMYOPATHY DX 2017) Cardiomyopathy, Hypertension Neurological: No Reproductive Disorders: No Sexually Transmitted Disease: No HIV/AIDS: No Genitourinary: No Gastrointestinal: Yes (GASTROPARESIS) Musculoskeletal: No Endocrine: Yes (DX AGE 11, [place] 2001; MULTIPLE ADMITS FOR DKA) Diabetes, Insulin dep Cancer: No Did You Recieve Any Treatments: No Psychosocial: Yes (Frequent marijuana use) Integumentary: Yes (WOUNDS TO LOWER LEGS-- [facility] Blood Disorders: No Adverse Reaction/Blood Tranf: No Family Medical History Cardiovascular disease 19 FATHER Hypertension 19 FATHER No Pertinent Family Hx Physical Exam Vital Signs Vital Signs - First Documented 10/22/21 14:00 Temp 36.4 Pulse 122 Resp 22 B/P (MAP) 192/113 (139) Pulse Ox 100 O2 Delivery Room Air Capillary Refill : Height, Weight, BMI Height: 5'11.00" Weight: 126lbs. 0.0oz. 57.135317ws; 16.21 BMI Method:Stated General Appearance: Cachetic, Moderate Distress Eyes: Bilateral Eye Normal Inspection, Bilateral Eye PERRL, Bilateral Eye EOMI HEENT: PERRL/EOMI, Other (dry oral mucosa) Neck: Full Range of Motion, Normal Inspection Respiratory: Lungs Clear, Normal Breath Sounds, No Accessory Muscle Use, No Respiratory Distress Cardiovascular: Regular Rate, Rhythm (125), Normal Peripheral Pulses Gastrointestinal: Soft, Tenderness (diffuse tenderness) Extremity: Normal Capillary Refill, Normal Inspection, Normal Range of Motion Neurologic/Psychiatric: Alert, Oriented x3, No Motor/Sensory Deficits, Depressed Affect Skin: Warm/Dry, Pallor Progress/Results/Core Measures Suspected Sepsis SIRS Temperature: Pulse: Respiratory Rate: Laboratory Tests 10/22/21 14:18: White Blood Count 13.5H Blood Pressure / Mean: Laboratory Tests 10/22/21 14:18: Creatinine 0.81, Platelet Count 330, Total Bilirubin 1.3H Results/Orders Lab Results Laboratory Tests Test 10/22/21 14:10 10/22/21 14:18 10/22/21 14:50 10/22/21 15:28 Range/Units Glucometer 106 130 H 70-110 MG/DL White Blood Count 13.5 H 4.3-11.0 10^3/uL Red Blood Count 5.10 4.30-5.52 10^6/uL Hemoglobin 13.3 13.3-17.7 g/dL Hematocrit 41 40-54 % Mean Corpuscular Volume 79 L 80-99 fL Mean Corpuscular Hemoglobin 26 25-34 pg Mean Corpuscular Hemoglobin Concent 33 32-36 g/dL Red Cell Distribution Width 13.8 10.0-14.5 % Platelet Count 330 130-400 10^3/uL Mean Platelet Volume 9.2 9.0-12.2 fL Immature Granulocyte % (Auto) 1 % Neutrophils (%) (Auto) 86 H 42-75 % Lymphocytes (%) (Auto) 10 L 12-44 % Monocytes (%) (Auto) 3 0-12 % Eosinophils (%) (Auto) 0 0-10 % Basophils (%) (Auto) 0 0-10 % Neutrophils # (Auto) 11.6 H 1.8-7.8 10^3/uL Lymphocytes # (Auto) 1.4 1.0-4.0 10^3/uL Monocytes # (Auto) 0.4 0.0-1.0 10^3/uL Eosinophils # (Auto) 0.0 0.0-0.3 10^3/uL Basophils # (Auto) 0.0 0.0-0.1 10^3/uL Immature Granulocyte # (Auto) 0.1 0.0-0.1 10^3/uL Neutrophils % (Manual) 89 % Lymphocytes % (Manual) 11 % Monocytes % (Manual) 0 % Eosinophils % (Manual) 0 % Basophils % (Manual) 0 % Band Neutrophils 0 % Blood Morphology Comment NORMAL Sodium Level 137 135-145 MMOL/L Potassium Level 3.9 3.6-5.0 MMOL/L Chloride Level 104 98-107 MMOL/L Carbon Dioxide Level 20 L 21-32 MMOL/L Anion Gap 13 5-14 MMOL/L Blood Urea Nitrogen 17 7-18 MG/DL Creatinine 0.81 0.60-1.30 MG/DL Estimat Glomerular Filtration Rate 110 BUN/Creatinine Ratio 21 Glucose Level 115 H 70-105 MG/DL Calcium Level 9.9 8.5-10.1 MG/DL Corrected Calcium 9.5 8.5-10.1 MG/DL Total Bilirubin 1.3 H 0.1-1.0 MG/DL Aspartate Amino Transf (AST/SGOT) 22 5-34 U/L Alanine Aminotransferase (ALT/SGPT) 12 0-55 U/L Alkaline Phosphatase 101 40-136 U/L Total Protein 8.6 H 6.4-8.2 GM/DL Albumin 4.5 3.2-4.5 GM/DL Lipase 22 8-78 U/L Beta-Hydroxybutyrate (Chem panel) 1.59 H 0.00-0.27 MMOL/L Influenza Type A (RT-PCR) Not Detected Not Detecte Influenza Type B (RT-PCR) Not Detected Not Detecte SARS-CoV-2 RNA (RT-PCR) Not Detected Not Detecte Blood Gas Puncture Site RR Blood Gas Patient Temperature 36.4 Arterial Blood pH 7.53 H 7.37-7.43 Arterial Blood Partial Pressure CO2 19 *L 35-45 MMHG Arterial Blood Partial Pressure O2 108 H 79-93 MMHG Arterial Blood HCO3 15 *L 23-27 MMOL/L Arterial Blood Total CO2 15.9 L 21.0-31.0 MMOL/L Arterial Blood Oxygen Saturation 100 94-100 % Arterial Blood Base Excess -7.2 L -2.5-2.5 MMOL/L Bony Test YES-POS Blood Gas Ventilator Setting NO Blood Gas Inspired Oxygen RA My Orders Orders - RAMÓN WEISS MD Ed Iv/Invasive Line Start (10/22/21 14:09) Cbc With Automated Diff (10/22/21 14:09) Comprehensive Metabolic Panel (10/22/21 14:09) Lipase (10/22/21 14:09) Arterial Blood Gas (10/22/21 14:09) Ua Culture If Indicated (10/22/21 14:09) Covid 19 Inhouse Test (10/22/21 14:09) Chest 1 View, Ap/Pa Only (10/22/21 14:09) Beta Hydroxybutyrate (10/22/21 14:09) Influenza A And B By Pcr (10/22/21 14:09) Isolation Central Supply Req (10/22/21 14:09) Ns Iv 1000 Ml (Sodium Chloride 0.9%) (10/22/21 14:15) Ondansetron Injection (Zofran Injectio (10/22/21 14:30) Manual Differential (10/22/21 14:18) Arterial Blood Gas (10/22/21 14:51) Ns Iv 1000 Ml (Sodium Chloride 0.9%) (10/22/21 15:30) Promethazine Injection (Phenergan Injec (10/22/21 15:30) Ed Admission (Communication) (10/22/21 15:45) D50w (Emergency) Syringe (Dextrose 50% 5 (10/22/21 15:45) D5 1/ Ns 1000 Ml Iv Solution (Dextrose (10/22/21 15:45) Insulin Regular Drip (Myxredlin 100 Unit (10/22/21 15:45) Medications Given in ED Current Medications Medications Dose Ordered Sig/Luis Route Start Time Stop Time Status Last Admin Dose Admin Dextrose 25 ml ONCE ONCE IV 10/22/21 15:45 10/22/21 15:48 DC 10/22/21 15:59 25 ML Ondansetron HCl 8 mg ONCE ONCE IVP 10/22/21 14:30 10/22/21 14:31 DC 10/22/21 14:28 8 MG Promethazine HCl 25 mg ONCE ONCE IVP 10/22/21 15:30 10/22/21 15:31 DC 10/22/21 15:24 25 MG Vital Signs/I&O 10/22/21 14:00 Temp 36.4 Pulse 122 Resp 22 B/P (MAP) 192/113 (139) Pulse Ox 100 O2 Delivery Room Air Capillary Refill : Progress Note : Time: 15:47 Progress Note Discussed with Dr. JOSÉ, recommends half amp of D50, initiation of D5 half- normal saline per protocol with an insulin drip to run at 5 units an hour. Will admit to an ICU bed. She will do que'd orders Critical Care Note Critical Care Start Time: 14:05 Stop Time: 15:30 Total Time (minutes) 45 minutes critical care time in the evaluation and management of this patient presenting with DKA symptoms. Critical care time includes initial evaluation, initiation of fluid resuscitation, review and interpretation of laboratory studies, review of the medical record, discussion with admitting provider; serial re-evaluations of the patient. Initiation of D50/D5 half normal saline fluids and insulin drip. Departure Communication (Admissions) Time/Spoke to Admitting Phy: 15:[address] José Impression Primary Impression: Type 1 diabetes mellitus Qualified Codes: E10.69 - Type 1 diabetes mellitus with other specified complication Additional Impressions: DKA (diabetic ketoacidoses) Dehydration Disposition: ADMITTED INPATIENT Condition: Critical Admissions Decision to Admit Reason: Admit from ER (General) Decision to Admit/Date: Oct 22, 2021 Time/Decision to Admit Time: 15:45 Departure-Patient Inst. Referrals: [facility] (PCP/Family) Primary Care Physician RAMÓN WEISS MD Oct 22, 2021 14:15
[2021-10-22 14:22] LABS: BASOPHILS % (AUTO) 0 % (0-10); EOSINOPHILS % (AUTO) 0 % (0-10); HEMATOCRIT 41 % (40-54); HEMOGLOBIN 13.3 g/dL (13.3-17.7); LYMPHOCYTES # (AUTO) 1.4 10^3/uL (1.0-4.0); LYMPHOCYTES % (AUTO) 10 % (12-44); MEAN CORPUSCULAR HEMOGLOBIN 26 pg (25-34); MEAN CORPUSCULAR HGB CONC 33 g/dL (32-36); MEAN CORPUSCULAR VOLUME 79 fL (80-99); MEAN PLATELET VOLUME 9.2 fL (9.0-12.2); MONOCYTES # (AUTO) 0.4 10^3/uL (0.0-1.0); MONOCYTES % (AUTO) 3 % (0-12); NEUTROPHILS # (AUTO) 11.6 10^3/uL (1.8-7.8); NEUTROPHILS % (AUTO) 86 % (42-75); PLATELET COUNT 330 10^3/uL (130-400); WHITE BLOOD COUNT 13.5 10^3/uL (4.3-11.0)
[2021-10-22 14:28] LABS: ALBUMIN 4.5 GM/DL (3.2-4.5)
[2021-10-22 14:29] LABS: POTASSIUM 3.9 MMOL/L (3.6-5.0)
[2021-10-22 14:30] LABS: CALCIUM 9.9 MG/DL (8.5-10.1)
[2021-10-22] MEDS ORDERED: ONDANSETRON 4 MG/2 ML (SDV) Z0FRAN IVP ONE (14:30)
[2021-10-22 14:31] LABS: TOTAL PROTEIN 8.6 GM/DL (6.4-8.2)
[2021-10-22 14:33] LABS: BILIRUBIN,TOTAL 1.3 MG/DL (0.1-1.0)
[2021-10-22 14:35] LABS: CREATININE SERUM 0.81 MG/DL (0.60-1.30)
[2021-10-22 14:46] LABS: BAND NEUTROPHILS 0 %; BASOPHILS % (MANUAL) 0 %; EOSINOPHILS % (MANUAL) 0 %; LYMPHOCYTES % (MANUAL) 11 %; MONOCYTES % (MANUAL) 0 %; NEUTROPHILS % (MANUAL) 89 %
[2021-10-22 14:47] LABS: RBC MORPH NORMAL
[2021-10-22 14:54] LABS: ABG BASE EXCESS -7.2 MMOL/L (-2.5-2.5); ABG OXYGEN SATURATION 100 % (94-100); ABG PH 7.53 (7.37-7.43); ABG PO2 108 MMHG (79-93); ABG TCO2 15.9 MMOL/L (21.0-31.0)
[2021-10-22 15:00] LABS: ALLENS TEST YES-POS; INSPIRED O2 RA; PATIENT TEMP 36.4; VENTILATOR NO
[2021-10-22 15:01] LABS: ABG PCO2 19 MMHG (35-45)
--- NOTE | 2021-10-22 15:17 | Diagnostic Imaging Report ---
EXAMINATION: Chest 1 view HISTORY: Diabetic ketoacidosis. COMPARISON: 08/18/2021. FINDINGS: Heart size and pulmonary vasculature are normal. The lungs are clear without consolidation, pleural effusion, or pneumothorax. The osseous structures are intact. IMPRESSION: 1. No acute radiographic abnormality in the chest. Dictated by: Dictated on workstation # [id number]
[2021-10-22] MEDS ORDERED: PROMETHAZINE INJ 25 MG/ML (PHENERGAN) AMP IVP ONE (15:30)
[2021-10-22] MEDS ORDERED: DEXTROSE 50% 50 ML (IMS) SYR IV ONE (15:45)
[2021-10-22] MEDS: D5 1/2 NS 1000 ML IV SOLUTION 1,000 ML IV SCH ×3 (15:59→23:16)
[2021-10-22] MEDS ORDERED: NALOXONE 0.4 MG/ML 1 ML (NARCAN) VIAL IV PRN (16:00)
[2021-10-22] MEDS ORDERED: ONDANSETRON 4 MG/2 ML (SDV) Z0FRAN IV PRN (16:00)
[2021-10-22] MEDS ORDERED: ONDANSETRON 4 MG (ZOFRAN) ORAL DISSOLVE TAB PO PRN (16:00)
[2021-10-22] MEDS ORDERED: D5 1/2 NS 1000 ML IV SOLUTION 1,000 ML IV SCH (16:00)
[2021-10-22] MEDS ORDERED: BISACODYL 10 MG SUPP (DULCOLAX) PR PRN (16:00)
[2021-10-22] MEDS ORDERED: ACETAMINOPHEN 325 MG TABLET PO PRN (16:00)
[2021-10-22] MEDS ORDERED: diphenhydrAMINE 50 MG/ML INJ (BENADRYL) IVP PRN (16:00)
[2021-10-22] MEDS ORDERED: ANTACID SUSP 30 ML UDC (MYLANTA) PO PRN (16:00)
[2021-10-22] MEDS ORDERED: morphine INJ 4 MG/ML 1 ML (VIAL/SYRINGE) IV PRN (16:00)
[2021-10-22] MEDS ORDERED: CALCIUM CARBONATE 500 MG (TUMS) TAB.CHEW PO PRN (16:00)
[2021-10-22] MEDS ORDERED: LACTULOSE SYRUP 10GM/15ML (ENULOSE) 30ML UDC PO PRN (16:00)
[2021-10-22] MEDS ORDERED: MELATONIN 3 MG TABLET PO PRN (16:00)
[2021-10-22] MEDS ORDERED: diphenhydrAMINE 25 MG TAB (BENADRYL) PO PRN (16:00)
[2021-10-22] MEDS ORDERED: MILK OF MAGNESIA 400 MG/5 ML 30 ML UDC PO PRN (16:00)
[2021-10-22] MEDS ORDERED: polyethylene glycoL POWDER 17 GM (MIRALAX) PACK PO PRN (16:00)
[2021-10-22 16:08] VITALS: BP 161/95
[2021-10-22] MEDS: POTASSIUM CL 10MEQ/50ML IVPB 50 ML IV SCH ×5 (16:32→23:15)
[2021-10-22] MEDS: 1/2 NS IV SOLUTION 1,000 ML IV SCH ×2 (16:33→21:05)
--- NOTE | 2021-10-22 17:09 | Tele-ICU Progress Note ---
Subjective Date Seen by a Provider: Oct 22, 2021 Time Seen by a Provider: 17:09 Sepsis Event Evaluation Height, Weight, BMI Height: 5'11.00" Weight: 126lbs. 0.0oz. 57.405971bc; 17.28 BMI Method:Stated Exam Exam Patient acknowledged, consented, and participated in this virtual visit which was conducted using real time audio/video Vital Signs Date Time Temp Pulse Resp B/P (MAP) Pulse Ox O2 Delivery O2 Flow Rate FiO2 10/22/21 17:00 116 19 152/106 100 Room Air 10/22/21 16:59 116 10/22/21 16:29 37.4 Room Air 10/22/21 16:08 117 20 161/95 97 Room Air 10/22/21 14:00 36.4 122 22 192/113 (139) 100 Room Air Height & Weight Height: 5'11.00" Weight: 126lbs. 0.0oz. 57.335414cu; 17.28 BMI Method:Stated General Appearance: Cachetic, Moderate Distress HEENT: PERRL/EOMI, Other (dry oral mucosa) Neck: Full Range of Motion, Normal Inspection Respiratory: Lungs Clear, Normal Breath Sounds, No Accessory Muscle Use, No Respiratory Distress Cardiovascular: Regular Rate, Rhythm (125), Normal Peripheral Pulses Capillary Refill: Less Than 3 Seconds Extremity: Normal Capillary Refill, Normal Inspection, Normal Range of Motion Neurologic/Psychiatric: Alert, Oriented x3, No Motor/Sensory Deficits, Depressed Affect Skin: Warm/Dry, Pallor Results Lab Laboratory Tests 10/22/21 14:18 Assessment/Plan Assessment/Plan (Tele-ICU Physician Available chart/ vitals / labs / Images reviewed H&P is from ER notes Patient's information available about PMH, Shx, Fhx allergy reviewed in EMR. ROS as per chart and RN report Now in ICU, hemodynamically stable Video assessment done using teleICU camera, rest of exam as per RN A/P DKA , DM I *Insulin drip *Tx Gastroparesis - difficult to control in past multiple meds , ( with QTc 405 on past Leukocytosis - reactive? chest x-ray was normal , UA pending >off ABX , follow Plans in collaboration with bedside consultants and IM MDs. Discussed with RN to reach out if any questions or concerns A total of 15 minutes of critical care time was devoted to this patient today, required to treat and/or prevent further deterioration of critical care condition ( as above ) . MAGI FAGAN MD Oct 22, 2021 17:09
[2021-10-22] MEDS: ENOXAPARIN 30 MG/0.3 ML (LOVENOX) SYR SC SCH (17:10)
[2021-10-22 17:22] LABS: POTASSIUM 3.8 MMOL/L (3.6-5.0)
[2021-10-22 17:23] LABS: CALCIUM 8.6 MG/DL (8.5-10.1)
[2021-10-22 17:28] LABS: CREATININE SERUM 0.79 MG/DL (0.60-1.30)
[2021-10-22 18:47] LABS: POTASSIUM 3.8 MMOL/L (3.6-5.0)
[2021-10-22 18:48] LABS: CALCIUM 8.7 MG/DL (8.5-10.1)
[2021-10-22 18:53] LABS: CREATININE SERUM 0.75 MG/DL (0.60-1.30)
[2021-10-22] MEDS: DOCUSATE SODIUM 100 MG (COLACE) CAP PO SCH (21:05)
[2021-10-22] MEDS: SENNOSIDES 8.6 MG (SENOKOT) TAB PO SCH (21:05)
[2021-10-22 22:11] LABS: POTASSIUM 3.9 MMOL/L (3.6-5.0)
[2021-10-22 22:17] LABS: CREATININE SERUM 0.85 MG/DL (0.60-1.30)
[2021-10-23 00:31] LABS: CALCIUM 8.4 MG/DL (8.5-10.1)
[2021-10-23] MEDS: 1/2 NS IV SOLUTION 1,000 ML IV SCH ×6 (00:33→18:33)
[2021-10-23 00:36] LABS: CREATININE SERUM 0.79 MG/DL (0.60-1.30)
[2021-10-23] MEDS: POTASSIUM CL 10MEQ/50ML IVPB 50 ML IV SCH ×6 (02:00→15:57)
[2021-10-23] MEDS: D5 1/2 NS 1000 ML IV SOLUTION 1,000 ML IV SCH ×5 (03:40→18:33)
[2021-10-23 04:29] LABS: BASOPHILS % (AUTO) 0 % (0-10); EOSINOPHILS % (AUTO) 0 % (0-10); HEMATOCRIT 32 % (40-54); HEMOGLOBIN 10.4 g/dL (13.3-17.7); LYMPHOCYTES # (AUTO) 2.4 10^3/uL (1.0-4.0); LYMPHOCYTES % (AUTO) 25 % (12-44); MEAN CORPUSCULAR HEMOGLOBIN 26 pg (25-34); MEAN CORPUSCULAR HGB CONC 33 g/dL (32-36); MEAN CORPUSCULAR VOLUME 80 fL (80-99); MEAN PLATELET VOLUME 9.4 fL (9.0-12.2); MONOCYTES # (AUTO) 0.9 10^3/uL (0.0-1.0); MONOCYTES % (AUTO) 9 % (0-12); NEUTROPHILS # (AUTO) 6.5 10^3/uL (1.8-7.8); NEUTROPHILS % (AUTO) 66 % (42-75); PLATELET COUNT 272 10^3/uL (130-400); WHITE BLOOD COUNT 9.8 10^3/uL (4.3-11.0)
[2021-10-23 04:42] LABS: POTASSIUM 3.6 MMOL/L (3.6-5.0)
[2021-10-23 04:44] LABS: CALCIUM 8.4 MG/DL (8.5-10.1)
[2021-10-23 04:48] LABS: CREATININE SERUM 0.72 MG/DL (0.60-1.30)
--- NOTE | 2021-10-23 08:08 | Tele-ICU Progress Note ---
Progress Note video rounds completed 31 y/o male with DKA Glucose this am 106, CO2 20 AG corrected PE: VSS, comfortable in bed PLAN: stop insulin drip, SSI Focused Exam Height, Weight, BMI Height: 5'11.00" Weight: 126lbs. 0.0oz. [id number]; 17.28 BMI Method:Stated Laboratory Tests 10/22/21 14:18 10/22/21 17:05 10/22/21 18:29 10/22/21 21:47 10/23/21 00:14 10/23/21 04:07 Labs Labs Laboratory Tests 10/22/21 14:10: Glucometer 106 10/22/21 14:18: White Blood Count 13.5H, Red Blood Count 5.10, Hemoglobin 13.3, Hematocrit 41, Mean Corpuscular Volume 79L, Mean Corpuscular Hemoglobin 26, Mean Corpuscular Hemoglobin Concent 33, Red Cell Distribution Width 13.8, Platelet Count 330, Mean Platelet Volume 9.2, Immature Granulocyte % (Auto) 1, Neutrophils (%) (Auto) 86H, Lymphocytes (%) (Auto) 10L, Monocytes (%) (Auto) 3, Eosinophils (%) (Auto) 0, Basophils (%) (Auto) 0, Neutrophils # (Auto) 11.6H, Lymphocytes # (Auto) 1.4, Monocytes # (Auto) 0.4, Eosinophils # (Auto) 0.0, Basophils # (Auto) 0.0, Immature Granulocyte # (Auto) 0.1, Neutrophils % (Manual) 89, Lymphocytes % (Manual) 11, Monocytes % (Manual) 0, Eosinophils % (Manual) 0, Basophils % (Manual) 0, Band Neutrophils 0, Blood Morphology Comment NORMAL, Sodium Level 137, Potassium Level 3.9, Chloride Level 104, Carbon Dioxide Level 20L, Anion Gap 13, Blood Urea Nitrogen 17, Creatinine 0.81, Estimat Glomerular Filtration Rate 110, BUN/Creatinine Ratio 21, Glucose Level 115H, Calcium Level 9.9, Corrected Calcium 9.5, Total Bilirubin 1.3H, Aspartate Amino Transf (AST/SGOT) 22, Alanine Aminotransferase (ALT/SGPT) 12, Alkaline Phosphatase 101, Total Protein 8.6H, Albumin 4.5, Lipase 22, Beta-Hydroxybutyrate (Chem panel) 1.59H, Influenza Type A (RT-PCR) Not Detected, Influenza Type B (RT-PCR) Not Detected, SARS-CoV-2 RNA (RT-PCR) Not Detected 10/22/21 14:50: Blood Gas Puncture Site RR, Blood Gas Patient Temperature 36.4, Arterial Blood pH 7.53H, Arterial Blood Partial Pressure CO2 19*L, Arterial Blood Partial Pressure O2 108H, Arterial Blood HCO3 15*L, Arterial Blood Total CO2 15.9L, Arterial Blood Oxygen Saturation 100, Arterial Blood Base Excess -7.2L, Bony Test YES-POS, Blood Gas Ventilator Setting NO, Blood Gas Inspired Oxygen RA 10/22/21 15:28: Glucometer 130H 10/22/21 16:35: Glucometer 225H 10/22/21 17:05: Sodium Level 136, Potassium Level 3.8, Chloride Level 106, Carbon Dioxide Level 17L, Anion Gap 13, Blood Urea Nitrogen 13, Creatinine 0.79, Estimat Glomerular Filtration Rate 114, BUN/Creatinine Ratio 16, Glucose Level 227H, Calcium Level 8.6, Beta-Hydroxybutyrate (Chem panel) 1.80H 10/22/21 17:16: Glucometer 201H 10/22/21 18:16: Glucometer 209H 10/22/21 18:29: Sodium Level 134L, Potassium Level 3.8, Chloride Level 105, Carbon Dioxide Level 20L, Anion Gap 9, Blood Urea Nitrogen 11, Creatinine 0.75, Estimat Glomerular Filtration Rate 121, BUN/Creatinine Ratio 15, Glucose Level 211H, Calcium Level 8.7 10/22/21 19:51: Glucometer 180H 10/22/21 20:47: Glucometer 176H 10/22/21 21:47: Sodium Level 138, Potassium Level 3.9, Chloride Level 105, Carbon Dioxide Level 18L, Anion Gap 15H, Blood Urea Nitrogen 9, Creatinine 0.85, Estimat Glomerular Filtration Rate 104, BUN/Creatinine Ratio 11, Glucose Level 190H, Calcium Level 9.0 10/22/21 21:49: Glucometer 178H 10/22/21 22:43: Glucometer 188H 10/22/21 23:05: Glucometer 186H 10/23/21 00:07: Glucometer 169H 10/23/21 00:14: Sodium Level 136, Potassium Level 4.0, Chloride Level 107, Carbon Dioxide Level 20L, Anion Gap 9, Blood Urea Nitrogen 8, Creatinine 0.79, Estimat Glomerular Filtration Rate 114, BUN/Creatinine Ratio 10, Glucose Level 177H, Calcium Level 8.4L 10/23/21 01:57: Glucometer 108 10/23/21 03:01: Glucometer 155H 10/23/21 04:03: Glucometer 106 10/23/21 04:07: White Blood Count 9.8, Red Blood Count 4.00L, Hemoglobin 10.4#L, Hematocrit 32L, Mean Corpuscular Volume 80, Mean Corpuscular Hemoglobin 26, Mean Corpuscular Hemoglobin Concent 33, Red Cell Distribution Width 13.8, Platelet Count 272, Mean Platelet Volume 9.4, Immature Granulocyte % (Auto) 0, Neutrophils (%) (Auto) 66, Lymphocytes (%) (Auto) 25, Monocytes (%) (Auto) 9, Eosinophils (%) (Auto) 0, Basophils (%) (Auto) 0, Neutrophils # (Auto) 6.5, Lymphocytes # (Auto) 2.4, Monocytes # (Auto) 0.9, Eosinophils # (Auto) 0.0, Basophils # (Auto) 0.0, Immature Granulocyte # (Auto) 0.0, Sodium Level 138, Potassium Level 3.6, Chloride Level 108H, Carbon Dioxide Level 20L, Anion Gap 10, Blood Urea Nitrogen 6L, Creatinine 0.72, Estimat Glomerular Filtration Rate 127, BUN/Creatinine R atio 8, Glucose Level 106H, Calcium Level 8.4L 10/23/21 05:24: Glucometer 162H 10/23/21 06:53: Glucometer 148H 10/23/21 07:52: 10/23/21 07:56: Glucometer 101 GRICELDA FLANAGAN MD Oct 23, 2021 08:08
[2021-10-23 08:12] LABS: POTASSIUM 3.7 MMOL/L (3.6-5.0)
[2021-10-23 08:13] LABS: CALCIUM 8.4 MG/DL (8.5-10.1)
[2021-10-23 08:18] LABS: CREATININE SERUM 0.72 MG/DL (0.60-1.30)
[2021-10-23] MEDS: DOCUSATE SODIUM 100 MG (COLACE) CAP PO SCH ×2 (09:00→21:19)
[2021-10-23] MEDS: SENNOSIDES 8.6 MG (SENOKOT) TAB PO SCH ×2 (09:00→21:20)
--- NOTE | 2021-10-23 09:42 | History & Physical-Hospitalist ---
History of Present Illness HPI/Chief Complaint Chief complaint: DKA History present illness: This is a 31-year-old white male clinic patient [facility] who has type I diabetes who has multiple hospital stays for DKA. He is unsure why he transitioned to a DKA but he just felt bad and began vomiting. He had a scope last time he was hospitalized. I will restart his home medicine. Currently he is doing much better with DKA resolved. I will need to be sure he can eat because he has had issues with recurrent DKA due to inability to eat. Source: patient Exam Limitations: no limitations Date Seen 10/23/21 Time Seen by a Provider: 11:30 Attending Physician Lore Knight DO [facility] Referring Physician Date of Admission Oct 22, 2021 at 16:04 Home Medications & Allergies Home Medications Reviewed patient Home Medication Reconciliation performed by pharmacy medication reconciliations chemical engineering technician and/or nursing. Patients Allergies have been reviewed. Allergies Allergies Coded Allergies Penicillins (Verified Allergy, Unknown, 05/23/06) Past [id number] Hx Patient Social History Marrital Status: single Employed/Student: unemployed Tobacco Use?: No Smoking Status: Former Smoker Use of E-Cig and/or Vaping dev: Yes Substance use?: No Alcohol Use?: No Pt feels they are or have been: No Immunizations Up To Date Date of Influenza Vaccine: Jun 16, 2021 First/Initial COVID19 Vaccinat: 01/03 Second COVID19 Vaccination Pierre: 02/03 Tetanus Booster (TDap): Unknown Hepatitis A: No Hepatitis B: No PED Vaccines UTD: No Date of Pneumonia Vaccine: Jul 16, 2016 Seasonal Allergies Seasonal Allergies: No Current Status Communicates: Verbally Primary Language: Bermudian Preferred Spoken Language: Bermudian Is interpretation needed?: No Sensory deficits: Vision impairment Implanted or Applied Medical D: None Past Medical History Pneumonia Currently Using CPAP: No Currently Using BIPAP: No Cardiomyopathy, Hypertension Sexually Transmitted Disease: No HIV/AIDS: No Diabetes, Insulin dep Did You Recieve Any Treatments: No Blood Disorders: No Adverse Reaction/Blood Tranf: No PMHx: Type I Diabetes Anxiety Diabetic Retinopathy Thyrotoxicosis Pneumonia Cardiomyopathy Gastroparesis Family Medical History Cardiovascular disease 19 FATHER Hypertension 19 FATHER No Pertinent Family Hx Review of Systems Constitutional: see HPI EENTM: no symptoms reported Respiratory: no symptoms reported Cardiovascular: no symptoms reported Gastrointestinal: nausea, vomiting Genitourinary: no symptoms reported Musculoskeletal: no symptoms reported Skin: no symptoms reported Psychiatric/Neurological: No Symptoms Reported All Other Systems Reviewed Negative Unless Noted: Yes Physical Exam Physical Exam Vital Signs Vital Signs - First Documented 10/22/21 14:00 Temp 36.4 Pulse 122 Resp 22 B/P (MAP) 192/113 (139) Pulse Ox 100 O2 Delivery Room Air Capillary Refill : Less Than 3 Seconds Height, Weight, BMI Height: 5'11.00" Weight: 126lbs. 0.0oz. [id number]; 17.28 BMI Method:Stated General Appearance: No Apparent Distress, Chronically ill, Thin Eyes: Right Eye Normal Inspection, Right Eye PERRL HEENT: PERRL/EOMI, Normal ENT Inspection, Pharynx Normal, Moist Mucous Membranes Neck: Full Range of Motion, Normal Inspection, Non Tender Respiratory: Chest Non Tender, Lungs Clear, Normal Breath Sounds, No Accessory Muscle Use, No Respiratory Distress Cardiovascular: Regular Rate, Rhythm, No Edema, No Gallop, No JVD, No Murmur, Normal Peripheral Pulses Gastrointestinal: Normal Bowel Sounds, No Organomegaly, No Pulsatile Mass, Non Tender, Soft Back: Normal Inspection, No CVA Tenderness, No Vertebral Tenderness Extremity: Normal Capillary Refill, Normal Inspection, Normal Range of Motion, Non Tender, No Calf Tenderness, No Pedal Edema Neurologic/Psychiatric: Alert, Oriented x3, No Motor/Sensory Deficits, Normal Mood/Affect Skin: Normal Color, Warm/Dry Lymphatic: No Adenopathy Results Results/Procedures Labs Laboratory Tests 10/22/21 14:18 10/22/21 17:05 10/22/21 18:29 10/22/21 21:47 10/23/21 00:14 10/23/21 04:07 10/23/21 07:52 10/23/21 11:52 10/23/21 16:01 Patient resulted labs reviewed. Assessment/Plan Admission Diagnosis Assessment: DKA Cardiomyopathy Hypertension Acute kidney injury Plan: Insulin drip Transition to subcu insulin Advance diet Admission Status: Inpatient Order (span 2 midnights) Reason for Inpatient Admission: DKA Diagnosis/Problems Diagnosis/Problems (1) Diabetic ketoacidosis Status: Resolved Resolution Date/Time: 01/14/21 @ 12:30 LORE KNIGHT DO Oct 23, 2021 09:42
[2021-10-23 12:19] LABS: CALCIUM 8.4 MG/DL (8.5-10.1); CREATININE SERUM 0.68 MG/DL (0.60-1.30); POTASSIUM 3.8 MMOL/L (3.6-5.0)
[2021-10-23 16:24] LABS: CALCIUM 8.4 MG/DL (8.5-10.1); CREATININE SERUM 0.71 MG/DL (0.60-1.30); POTASSIUM 4.1 MMOL/L (3.6-5.0)
[2021-10-23] MEDS: SUCRALFATE 1 GM (CARAFATE) TAB PO SCH ×2 (17:17→21:19)
[2021-10-23] MEDS: METOCLOPRAMIDE 10 MG (REGLAN) TAB PO SCH (17:17)
[2021-10-23] MEDS: ENOXAPARIN 30 MG/0.3 ML (LOVENOX) SYR SC SCH (17:18)
[2021-10-23 20:26] LABS: CALCIUM 8.5 MG/DL (8.5-10.1); CREATININE SERUM 0.73 MG/DL (0.60-1.30); POTASSIUM 4.2 MMOL/L (3.6-5.0)
[2021-10-23] MEDS: inSUlin ASPART (NovoLOG) 1 UNIT/0.01 ML (CHARGE PER UNIT) SC SCH (20:38)
[2021-10-24 05:19] LABS: BASOPHILS % (AUTO) 0 % (0-10); EOSINOPHILS # (AUTO) 0.1 10^3/uL (0.0-0.3); EOSINOPHILS % (AUTO) 2 % (0-10); HEMATOCRIT 36 % (40-54); HEMOGLOBIN 11.5 g/dL (13.3-17.7); LYMPHOCYTES # (AUTO) 2.1 10^3/uL (1.0-4.0); LYMPHOCYTES % (AUTO) 29 % (12-44); MEAN CORPUSCULAR HEMOGLOBIN 26 pg (25-34); MEAN CORPUSCULAR HGB CONC 32 g/dL (32-36); MEAN CORPUSCULAR VOLUME 80 fL (80-99); MEAN PLATELET VOLUME 9.8 fL (9.0-12.2); MONOCYTES # (AUTO) 0.6 10^3/uL (0.0-1.0); MONOCYTES % (AUTO) 9 % (0-12); NEUTROPHILS # (AUTO) 4.4 10^3/uL (1.8-7.8); NEUTROPHILS % (AUTO) 60 % (42-75); PLATELET COUNT 252 10^3/uL (130-400); WHITE BLOOD COUNT 7.3 10^3/uL (4.3-11.0)
[2021-10-24 05:37] LABS: POTASSIUM 4.2 MMOL/L (3.6-5.0)
[2021-10-24 05:38] LABS: CALCIUM 8.7 MG/DL (8.5-10.1)
[2021-10-24 05:42] LABS: CREATININE SERUM 0.77 MG/DL (0.60-1.30)
[2021-10-24] MEDS: METOCLOPRAMIDE 10 MG (REGLAN) TAB PO SCH (06:26)
[2021-10-24] MEDS: inSUlin ASPART (NovoLOG) 1 UNIT/0.01 ML (CHARGE PER UNIT) SC SCH ×2 (06:26→11:57)
[2021-10-24] MEDS: SUCRALFATE 1 GM (CARAFATE) TAB PO SCH ×2 (06:26→11:57)
--- NOTE | 2021-10-24 08:33 | Progress Note - Hospitalist ---
Subjective HPI/CC On Admission Date Seen by Provider: Oct 24, 2021 Chief complaint: DKA History present illness: This is a 31-year-old white male clinic patient [facility] who has type I diabetes who has multiple hospital stays for DKA. He is unsure why he transitioned to a DKA but he just felt bad and began vomiting. He had a scope last time he was hospitalized. I will restart his home medicine. Currently he is doing much better with DKA resolved. I will need to be sure he can eat because he has had issues with recurrent DKA due to inability to eat. Objective Exam Vital Signs Vital Signs Date Time Temp Pulse Resp B/P (MAP) Pulse Ox O2 Delivery O2 Flow Rate FiO2 10/24/21 11:00 92 21 144/90 100 Room Air 10/24/21 08:00 36.7 Capillary Refill : Less Than 3 Seconds Results/Procedures Lab Laboratory Tests 10/23/21 11:52 10/23/21 16:01 10/23/21 19:55 10/24/21 04:24 Patient resulted labs reviewed. Diagnosis/Problems Diagnosis/Problems (1) Diabetic ketoacidosis Status: Resolved Resolution Date/Time: 01/14/21 @ 12:30 NORAH JOSÉ DO Oct 24, 2021 08:33
[2021-10-24] MEDS ORDERED: PANTOPRAZOLE 40 MG (PROTONIX) TAB PO SCH (09:00)
[2021-10-24] MEDS: SENNOSIDES 8.6 MG (SENOKOT) TAB PO SCH (09:00)
[2021-10-24] MEDS: DOCUSATE SODIUM 100 MG (COLACE) CAP PO SCH (09:00)
--- NOTE | 2021-10-24 11:45 | Discharge Summary ---
Discharge Summary Hospital Course Was the Problem List Reviewed?: Yes Problems/Dx: (1) Diabetic ketoacidosis Status: Resolved Hospital Course Date of Admission: Oct 22, 2021 at 16:04 Admission Diagnosis : Family Physician/Provider: [facility] Date of Discharge: 10/24/21 Discharge Diagnosis: DKA Hospital Course: Short course after admitted placed in ICU with insulin drip. Potassium supplemented. Patient transition to normal lab results. Discharge home. Labs and Pending Lab Test: Laboratory Tests 10/23/21 11:52: Sodium Level 137, Potassium Level 3.8, Chloride Level 109H, Carbon Dioxide Level 20L, Anion Gap 8, Blood Urea Nitrogen 4L, Creatinine 0.68, Estimat Glomerular Filtration Rate 135, BUN/Creatinine Ratio 6, Glucose Level 125H, Glucometer 116H , Calcium Level 8.4L 10/23/21 12:56: Glucometer 183H 10/23/21 14:13: Glucometer 181H 10/23/21 15:49: Glucometer 175H 10/23/21 16:01: Sodium Level 136, Potassium Level 4.1, Chloride Level 107, Carbon Dioxide Level 21, Anion Gap 8, Blood Urea Nitrogen 3L, Creatinine 0.71, Estimat Glomerular Filtration Rate 129, BUN/Creatinine Ratio 4, Glucose Level 185H, Calcium Level 8.4L, Beta-Hydroxybutyrate (Chem panel) 0.04 10/23/21 16:54: Glucometer 184H 10/23/21 17:45: Glucometer 117H 10/23/21 19:55: Sodium Level 139, Potassium Level 4.2, Chloride Level 109H, Carbon Dioxide Level 22, Anion Gap 8, Blood Urea Nitrogen 4L, Creatinine 0.73, Estimat Glomerular Filtration Rate 125, BUN/Creatinine Ratio 5, Glucose Level 96, Calcium Level 8.5 10/23/21 20:42: Glucometer 80 10/24/21 02:40: Glucometer 80 10/24/21 04:24: White Blood Count 7.3, Red Blood Count 4.44, Hemoglobin 11.5L, Hematocrit 36L, Mean Corpuscular Volume 80, Mean Corpuscular Hemoglobin 26, Mean Corpuscular Hem oglobin Concent 32, Red Cell Distribution Width 13.9, Platelet Count 252, Mean Platelet Volume 9.8, Immature Granulocyte % (Auto) 0, Neutrophils (%) (Auto) 60, Lymphocytes (%) (Auto) 29, Monocytes (%) (Auto) 9, Eosinophils (%) (Auto) 2, Basophils (%) (Auto) 0, Neutrophils # (Auto) 4.4, Lymphocytes # (Auto) 2.1, Monocytes # (Auto) 0.6, Eosinophils # (Auto) 0.1, Basophils # (Auto) 0.0, Immature Granulocyte # (Auto) 0.0, Sodium Level 136, Potassium Level 4.2, Chloride Level 104, Carbon Dioxide Level 23, Anion Gap 9, Blood Urea Nitrogen 7, Creatinine 0.77, Estimat Glomerular Filtration Rate 117, BUN/Creatinine Ratio 9, Glucose Level 157H, Calcium Level 8.7, Beta-Hydroxybutyrate (Chem panel) 0.13 Home Meds Active Sucralfate 1 Gm Tablet 1 Gm PO ACHS Reported Lisinopril 10 Mg Tablet 10 Mg PO DAILY Metoclopramide HCl 10 Mg Tablet 10 Mg PO BIDAC Pantoprazole Sodium 40 Mg Tablet.dr 40 Mg PO DAILY Novolog (Insulin Aspart) 100 Unit/1 Ml Susp Unit SQ TIDAC MDD 30 UNITS USES 2 UNITS PER EVERY CARB Levemir (Insulin Determir) 1,000 Units/10 Ml Soln 5-10 Units SQ HS Assessment/Pt Instructions PCP in 1 week Discharge Planning: <30 minutes discharge planning Discharge Instructions Discharge Diet: No Restrictions Activity as Tolerated: Yes Discharge Physical Examination Vital Signs Vital Signs Date Time Temp Pulse Resp B/P (MAP) Pulse Ox O2 Delivery O2 Flow Rate FiO2 10/24/21 11:00 92 21 144/90 100 Room Air 10/24/21 08:00 36.7 General Appearance: No Apparent Distress, WD/WN, Chronically ill Allergies: Coded Allergies: Penicillins (Verified Allergy, Unknown, 05/23/06) Discharge Summary Date of Admission Oct 22, 2021 at 16:04 Date of Discharge Discharge Date: Oct 24, 2021 Admission Diagnosis Assessment: DKA Cardiomyopathy Hypertension Acute kidney injury Plan: Insulin drip Transition to subcu insulin Advance diet Discharge Diagnosis (1) Diabetic ketoacidosis Status: Resolved NORAH JOSÉ DO Oct 24, 2021 11:45
== END 2021-10-24 14:20 | disposition home or self-care (01) | DRG 638 ==
LOC: EDUNIT# 13:58 → ER 13:59 → ICU 16:04
PROVIDERS: ADMIT Internal Medicine; ATTEND Internal Medicine
DX: E10.10 Type 1 diabetes mellitus with ketoacidosis without coma (principal); I42.9 Cardiomyopathy, unspecified; N17.9 Acute kidney failure, unspecified; I10 Essential (primary) hypertension; E10.319 Type 1 diabetes mellitus with unspecified diabetic retinopathy without macular edema; D72.829 Elevated white blood cell count, unspecified; Z20.822 Contact with and (suspected) exposure to COVID-19; E10.43 Type 1 diabetes mellitus with diabetic autonomic (poly)neuropathy; K31.84 Gastroparesis; E86.0 Dehydration; Z79.4 Long term (current) use of insulin; Z87.891 Personal history of nicotine dependence; Z79.899 Other long term (current) drug therapy
CPT/HCPCS: 36415; 71045; 80048; 80053; 82010; 82805; 82947; 83036; 83690; 85007; 85025; 85027; 87081; 87636

== ENCOUNTER 2021-12-01 20:29 | Observation (INO) | payer OTHER ==
[~2021-12-01] VITALS: Ht 180 cm; Wt 56.4 kg
[2021-12-01] MEDS ORDERED: LACTATED RINGERS 1,000 ML IV SCH (20:45)
[2021-12-01] MEDS ORDERED: ONDANSETRON 4 MG/2 ML (SDV) Z0FRAN IVP ONE (20:45)
[2021-12-01 21:07] LABS: BASOPHILS % (AUTO) 0 % (0-10); EOSINOPHILS % (AUTO) 0 % (0-10); HEMATOCRIT 39 % (40-54); LYMPHOCYTES # (AUTO) 1.8 10^3/uL (1.0-4.0); LYMPHOCYTES % (AUTO) 17 % (12-44); MEAN CORPUSCULAR HEMOGLOBIN 26 pg (25-34); MEAN CORPUSCULAR HGB CONC 33 g/dL (32-36); MEAN CORPUSCULAR VOLUME 76 fL (80-99); MEAN PLATELET VOLUME 8.8 fL (9.0-12.2); MONOCYTES # (AUTO) 0.8 10^3/uL (0.0-1.0); MONOCYTES % (AUTO) 8 % (0-12); NEUTROPHILS # (AUTO) 8.1 10^3/uL (1.8-7.8); NEUTROPHILS % (AUTO) 75 % (42-75); PLATELET COUNT 311 10^3/uL (130-400); WHITE BLOOD COUNT 10.9 10^3/uL (4.3-11.0)
[2021-12-01 21:21] LABS: ALBUMIN 4.2 GM/DL (3.2-4.5)
[2021-12-01 21:22] LABS: POTASSIUM 3.1 MMOL/L (3.6-5.0)
[2021-12-01 21:23] LABS: CALCIUM 9.5 MG/DL (8.5-10.1)
[2021-12-01 21:24] LABS: TOTAL PROTEIN 7.5 GM/DL (6.4-8.2)
[2021-12-01 21:26] LABS: BILIRUBIN,TOTAL 0.4 MG/DL (0.1-1.0)
[2021-12-01 21:27] LABS: CREATININE SERUM 1.01 MG/DL (0.60-1.30); INR 0.9 (0.8-1.4)
[2021-12-01 21:39] LABS: ABG BASE EXCESS -0.7 MMOL/L (-2.5-2.5); ABG OXYGEN SATURATION 99 % (94-100); ABG PCO2 22 MMHG (35-45); ABG PH 7.59 (7.37-7.43); ABG PO2 116 MMHG (79-93); ABG TCO2 21.8 MMOL/L (21.0-31.0); ALLENS TEST YES-POS; INSPIRED O2 ROOM AIR; PATIENT TEMP 36.5; VENTILATOR NO
--- NOTE | 2021-12-01 21:48 | ED General ---
General Chief Complaint: Glucose Problems Stated Complaint: RAPID HEART RATE, VOMITING, SOB Nursing Triage Note: PT AMB TO ED BY POV WITH C/O VOMITING, SOB SINCE 1700 TODAY. PT REPORTS HE BELIEVES HE IS IN DKA. PT HAS HX TYPE 1 DM, REPORTS BLOOD SUGAR 340 1 HR CHEMISTS. A&O X4. Source of Information: Patient Exam Limitations: No Limitations (NINOSKA HERNANDEZ APRN) History of Present Illness Date Seen by Provider: Dec 01, 2021 Time Seen by Provider: 22:08 Initial Comments To ER with nausea and vomiting. Denies abdominal pain. Started at 5 PM today. Thinks he is in DKA. His sugar at home was about 340. History of type 1 diabetes. Timing/Duration: 4-6 Hours Severity: Moderate Associated Systoms: Nausea/Vomiting (NINOSKA HERNANDEZ APRN) Allergies and Home Medications Allergies Coded Allergies: Penicillins (Verified Allergy, Unknown, 05/23/06) Patient Home Medication List Home Medication List Reviewed: Yes (NINOSKA HERNANDEZ APRN) Insulin Aspart (Novolog) 100 Unit/1 Ml Susp, UNIT SQ TIDAC, (Reported) Entered as Reported by: NICOLLE MUNSON on 11/28/19 1021 Insulin Determir (Levemir) 1,000 Units/10 Ml Soln, 5-10 UNITS SQ HS, (Reported) Entered as Reported by: NICOLLE MUNSON on 11/28/19 1021 Lisinopril (Lisinopril) 10 Mg Tablet, 10 MG PO DAILY, (Reported) Entered as Reported by: YUMIKO SNOW on 08/18/21 1159 Metoclopramide HCl (Metoclopramide HCl) 10 Mg Tablet, 10 MG PO BIDAC, (Reported) Entered as Reported by: DANNIE PERDOMO on 01/11/21 0952 Pantoprazole Sodium (Pantoprazole Sodium) 40 Mg Tablet.dr, 40 MG PO DAILY, (Reported) Entered as Reported by: DANNIE PERDOMO on 01/11/21 0952 Sucralfate (Sucralfate) 1 Gm Tablet, 1 GM PO ACHS Prescribed by: NORAH JOSÉ on 08/22/21 1148 Review of Systems Review of Systems Constitutional: see HPI EENTM: see HPI Respiratory: no symptoms reported Cardiovascular: no symptoms reported Gastrointestinal: nausea, vomiting Genitourinary: no symptoms reported Musculoskeletal: no symptoms reported Skin: no symptoms reported Psychiatric/Neurological: No Symptoms Reported Hematologic/Lymphatic: No Symptoms Reported Immunological/Allergic: no symptoms reported (NINOSKA HERNANDEZ APRN) Past Iwkinvy-Czndfx-Lgyzne Hx Patient Social History Tobacco Use?: No Use of E-Cig and/or Vaping dev: Yes E-Cig or Vaping type used: Marijuana Use of E-Cig and/or Vaping Kennedy: Current Everyday User Substance use?: No Substance type: Marijuana Alcohol Use?: No Pt feels they are or have been: No (NINOSKA HERNANDEZ APRN) Immunizations Up To Date Tetanus Booster (TDap): Unknown PED Vaccines UTD: No Influenza Vaccine Up-to-Date: Yes; Up-to-Date First/Initial COVID19 Vaccinat: 01/03 Second COVID19 Vaccination Pierre: 02/03 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: [employer] (NINOSKA HERNANDEZ APRN) Seasonal Allergies Seasonal Allergies: No (NINOSKA HERNANDEZ APRN) Past Medical History Surgery/Hospitalization HX: TYPE 1 DM, HTN, GASTROPARESIS Surgeries: No Respiratory: Yes Pneumonia Currently Using CPAP: No Currently Using BIPAP: No Cardiac: Yes (CARDIOMYOPATHY DX 2017) Cardiomyopathy, Hypertension Neurological: No Reproductive Disorders: No Sexually Transmitted Disease: No HIV/AIDS: No Genitourinary: No Gastrointestinal: Yes (GASTROPARESIS) Musculoskeletal: No Endocrine: Yes (DX AGE 11, [place] 2001; MULTIPLE ADMITS FOR DKA) Diabetes, Insulin dep Cancer: No Did You Recieve Any Treatments: No Psychosocial: Yes (Frequent marijuana use) Integumentary: Yes (WOUNDS TO LOWER LEGS-- REQUIRED WOUND CARE CLINIC TREAT MENT) Blood Disorders: No Adverse Reaction/Blood Tranf: No (NINOSKA HERNANDEZ APRN) Family Medical History Cardiovascular disease 19 FATHER Hypertension 19 FATHER No Pertinent Family Hx (NINOSKA HERNANDEZ APRN) Physical Exam Vital Signs Vital Signs - First Documented 12/01/21 20:39 Temp 35.8 Pulse 101 Resp 26 B/P (MAP) 179/99 (125) Pulse Ox 100 O2 Delivery Room Air (ANATOLY SHAFER MD) Vital Signs Capillary Refill : (NINOSKA HERNANDEZ APRN) Height, Weight, BMI Height: 5'11.00" Weight: 126lbs. 0.0oz. 57.013588uu; 17.00 BMI Method:Stated General Appearance: WD/WN, Chronically ill, Thin Eyes: Bilateral Eye Normal Inspection, Bilateral Eye PERRL, Bilateral Eye EOMI Neck: Full Range of Motion, Normal Inspection Respiratory: No Accessory Muscle Use, No Respiratory Distress Cardiovascular: Normal Peripheral Pulses, Tachycardia Gastrointestinal: Normal Bowel Sounds, Non Tender, Soft Extremity: Normal Capillary Refill, Normal Inspection Neurologic/Psychiatric: Alert, Oriented x3 Skin: Normal Color, Warm/Dry (NINOSKA HERNANDEZ APRN) Progress/Results/Core Measures Suspected Sepsis SIRS Temperature: Pulse: 101 Respiratory Rate: 26 Laboratory Tests 12/01/21 21:00: White Blood Count 10.9 Blood Pressure 179 /99 Mean: 125 Laboratory Tests 12/01/21 21:00: Creatinine 1.01, INR Comment 0.9, Platelet Count 311, Total Bilirubin 0.4 (NINOSKA HERNANDEZ APRN) Results/Orders Lab Results Laboratory Tests Test 12/01/21 20:51 12/01/21 21:00 12/01/21 21:33 12/01/21 23:22 Range/Units Glucometer 76 70-110 MG/DL White Blood Count 10.9 4.3-11.0 10^3/uL Red Blood Count 5.09 4.30-5.52 10^6/uL Hemoglobin 13.0 L 13.3-17.7 g/dL Hematocrit 39 L 40-54 % Mean Corpuscular Volume 76 L 80-99 fL Mean Corpuscular Hemoglobin 26 25-34 pg Mean Corpuscular Hemoglobin Concent 33 32-36 g/dL Red Cell Distribution Width 14.0 10.0-14.5 % Platelet Count 311 130-400 10^3/uL Mean Platelet Volume 8.8 L 9.0-12.2 fL Immature Granulocyte % (Auto) 0 % Neutrophils (%) (Auto) 75 42-75 % Lymphocytes (%) (Auto) 17 12-44 % Monocytes (%) (Auto) 8 0-12 % Eosinophils (%) (Auto) 0 0-10 % Basophils (%) (Auto) 0 0-10 % Neutrophils # (Auto) 8.1 H 1.8-7.8 10^3/uL Lymphocytes # (Auto) 1.8 1.0-4.0 10^3/uL Monocytes # (Auto) 0.8 0.0-1.0 10^3/uL Eosinophils # (Auto) 0.0 0.0-0.3 10^3/uL Basophils # (Auto) 0.0 0.0-0.1 10^3/uL Immature Granulocyte # (Auto) 0.0 0.0-0.1 10^3/uL Prothrombin Time 13.0 12.2-14.7 SEC INR Comment 0.9 0.8-1.4 Sodium Level 142 135-145 MMOL/L Potassium Level 3.1 L 3.6-5.0 MMOL/L Chloride Level 107 98-107 MMOL/L Carbon Dioxide Level 20 L 21-32 MMOL/L Anion Gap 15 H 5-14 MMOL/L Blood Urea Nitrogen 13 7-18 MG/DL Creatinine 1.01 0.60-1.30 MG/DL Estimat Glomerular Filtration Rate 101 BUN/Creatinine Ratio 13 Glucose Level 72 70-105 MG/DL Calcium Level 9.5 8.5-10.1 MG/DL Corrected Calcium 9.3 8.5-10.1 MG/DL Total Bilirubin 0.4 0.1-1.0 MG/DL Aspartate Amino Transf (AST/SGOT) 16 5-34 U/L Alanine Aminotransferase (ALT/SGPT) 14 0-55 U/L Alkaline Phosphatase 104 40-136 U/L Total Protein 7.5 6.4-8.2 GM/DL Albumin 4.2 3.2-4.5 GM/DL Beta-Hydroxybutyrate (Chem panel) 0.62 H 0.00-0.27 MMOL/L Blood Gas Puncture Site L RADIAL Blood Gas Patient Temperature 36.5 Arterial Blood pH 7.59 H 7.37-7.43 Arterial Blood Partial Pressure CO2 22 L 35-45 MMHG Arterial Blood Partial Pressure O2 116 H 79-93 MMHG Arterial Blood HCO3 21 L 23-27 MMOL/L Arterial Blood Total CO2 21.8 21.0-31.0 MMOL/L Arterial Blood Oxygen Saturation 99 94-100 % Arterial Blood Base Excess -0.7 -2.5-2.5 MMOL/L Bony Test YES-POS Blood Gas Ventilator Setting NO Blood Gas Inspired Oxygen ROOM AIR Urine Color YELLOW Urine Clarity CLEAR Urine pH 7.5 5-9 Urine Specific [place] 1.020 1.016-1.022 Urine Protein 1+ H NEGATIVE Urine Glucose (UA) 3+ H NEGATIVE Urine Ketones 1+ H NEGATIVE Urine Nitrite NEGATIVE NEGATIVE Urine Bilirubin NEGATIVE NEGATIVE Urine Urobilinogen 0.2 < = 1.0 MG/DL Urine Leukocyte Esterase NEGATIVE NEGATIVE Urine RBC (Auto) 3+ H NEGATIVE Urine RBC 5-10 H /HPF Urine WBC 0-2 /HPF Urine Squamous Epithelial Cells RARE /HPF Urine Crystals PRESENT H /LPF Urine Calcium Oxalate Crystals FEW H /LPF Urine Bacteria TRACE /HPF Urine Casts PRESENT /LPF Urine Hyaline Casts RARE /LPF Urine Mucus SMALL H /LPF Urine Culture Indicated NO Urine Opiates Screen NEGATIVE NEGATIVE Urine Oxycodone Screen NEGATIVE NEGATIVE Urine Methadone Screen NEGATIVE NEGATIVE Urine Propoxyphene Screen NEGATIVE NEGATIVE Urine Barbiturates Screen NEGATIVE NEGATIVE Ur Tricyclic Antidepressants Screen NEGATIVE NEGATIVE Urine Phencyclidine Screen NEGATIVE NEGATIVE Urine Amphetamines Screen NEGATIVE NEGATIVE Urine Methamphetamines Screen NEGATIVE NEGATIVE Urine Benzodiazepines Screen NEGATIVE NEGATIVE Urine Cocaine Screen NEGATIVE NEGATIVE Urine Cannabinoids Screen POSITIVE H NEGATIVE Test 12/02/21 00:43 Range/Units Glucometer 179 H 70-110 MG/DL (ANATOLY SHAFER MD) My Orders Orders - ANATOLY SHAFER MD Lactated Ringers (Lr 1000 Ml Iv Solution (12/02/21 00:45) Haloperidol Injection (Haldol Injectio (12/02/21 00:45) Monitor-Rhythm Ecg Trace Only (12/02/21 00:38) Accucheck Stat ONCE (12/02/21 00:38) Pantoprazole Injection (Protonix Injecti (12/02/21 02:45) (ANATOLY SHAFER MD) Medications Given in ED Current Medications Medications Dose Ordered Sig/Luis Route Start Time Stop Time Status Last Admin Dose Admin Haloperidol Lactate 2.5 mg ONCE ONCE IV 12/02/21 00:45 12/02/21 00:46 DC 12/02/21 00:52 2.5 MG Lactated Ringer's 1,000 ml @ 0 mls/hr Q0M ONCE IV 12/02/21 00:45 12/02/21 00:46 DC 12/02/21 00:52 0 MLS/HR Ondansetron HCl 8 mg ONCE ONCE IVP 12/01/21 20:45 12/01/21 20:46 DC 12/01/21 21:02 8 MG Promethazine HCl 25 mg ONCE ONCE IVP 12/01/21 22:15 12/01/21 22:16 DC 12/01/21 22:20 25 MG (ANATOLY SHAFER MD) Vital Signs/I&O 12/01/21 20:39 Temp 35.8 Pulse 101 Resp 26 B/P (MAP) 179/99 (125) Pulse Ox 100 O2 Delivery Room Air (ANATOLY SHAFER MD) Vital Signs/I&O Capillary Refill : (NINOSKA HERNNADEZ APRN) Blood Pressure Mean: 125 Point of Care Testing Finger Stick Blood Glucose: 76 (NINOSKA HERNANDEZ APRN) Progress Note #1: Time: 01:50 Progress Note Care of this patient from Ninoska Hernandez at the conclusion of his shift. Patient was still nauseous and received Phenergan. He had refractory nausea and vomitin g even after Zofran and Phenergan. He is presently receiving Haldol 2.5 mg. Patient does use marijuana and tested positive for THC today. I suspect he is suffering from cannabis hyperemesis. Blood sugar was repeated and was 179. Progress Note #2: Time: 02:45 Progress Note Patient stopped vomiting after the Haldol but still had significant nausea. He is not confident he can maintain oral intake at home. 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 He is being admitted for further symptom control, monitoring of his blood sugars, hydration, and replacement of potassium. Dr. José was notified of admission. I have advised patient to discontinue marijuana use completely. Patient reports taking Reglan for gastroparesis. He took his usual dose since yesterday but it did not seem to impact his nausea and vomiting. Patient took his Levemir last night. Sliding scale insulin has been ordered to help manage his blood sugars after admission. (ANATOLY SHAFER MD) Departure Communication (Admissions) Time/Spoke to Admitting Phy: 02:38 Dr. José (ANATOLY SHAFER MD) Impression Primary Impression: Hypokalemia Additional Impressions: Hyperventilation History of diabetes mellitus Intractable nausea and vomiting Positive urine drug screen Disposition: HOME, SELF-CARE Condition: Stable Admissions Decision to Admit Reason: Admit from ER (General) Decision to Admit/Date: Dec 02, 2021 Time/Decision to Admit Time: 02:38 (ANATOLY SHAFER MD) Departure-Patient Inst. Decision time for Depature: 22:09 (NINOSKA HERNANDEZ APRN) Referrals: [facility] [place] (PCP/Family) Primary Care Physician Patient Instructions: Hyperventilation Copy Copies To 1: HILARIO FISHMAN PETER J APRN Dec 01, 2021 21:48 ANATOLY SHAFER MD Dec 02, 2021 01:52
[2021-12-01] MEDS ORDERED: PROMETHAZINE INJ 25 MG/ML (PHENERGAN) AMP IVP ONE (22:15)
[2021-12-01 23:27] LABS: BILIRUBIN,URINE NEGATIVE (NEGATIVE); CLARITY,URINE CLEAR; COLOR,URINE YELLOW; GLUCOSE, URINE (UA) 3+ (NEGATIVE); KETONES,URINE 1+ (NEGATIVE); LEUKOCYTE ESTERASE ,URINE NEGATIVE (NEGATIVE); NITRITE,URINE NEGATIVE (NEGATIVE); PH,URINE 7.5 (5-9); PROTEIN,URINE 1+ (NEGATIVE)
[2021-12-01 23:37] LABS: AMPHETAMINE SCREEN, URINE NEGATIVE (NEGATIVE); BARBITURATE SCREEN URINE NEGATIVE (NEGATIVE); BENZODIAZEPINES SCREEN URINE NEGATIVE (NEGATIVE); CANNABINOID SCREEN, URINE POSITIVE (NEGATIVE); COCAINE SCREEN URINE NEGATIVE (NEGATIVE); METHADONE STAT NEGATIVE (NEGATIVE); METHAMPHETAMINE SCREEN URINE S NEGATIVE (NEGATIVE); OPIATE SCREEN URINE NEGATIVE (NEGATIVE); OXYCODONE STAT NEGATIVE (NEGATIVE); PROPOXYPHENE STAT NEGATIVE (NEGATIVE); TRICYCLIC ANTIDEPRESSANTS SCRE NEGATIVE (NEGATIVE)
[2021-12-01 23:38] LABS: BACTERIA,URINE TRACE /HPF; CALCIUM OXALATE CRYSTALS,UR FEW /LPF; HYALINE CASTS, URINE RARE /LPF; SQUAMOUS EPITHELIAL CELL,UR RARE /HPF; WBC,URINE 0-2 /HPF
[2021-12-02] VITALS (18 sets, daily range): BP systolic 81–188; BP diastolic 39–108
[2021-12-02] MEDS ORDERED: HALOPERIDOL 5 MG/ML (HALDOL) VIAL IV ONE (00:45)
[2021-12-02] MEDS ORDERED: LACTATED RINGERS 1,000 ML IV ONE (00:45)
[2021-12-02] MEDS ORDERED: PANTOPRAZOLE 40 MG (PROTONIX) VIAL IV ONE (02:45)
[2021-12-02] MEDS ORDERED: HALOPERIDOL 5 MG/ML (HALDOL) VIAL IV PRN (03:45)
[2021-12-02] MEDS ORDERED: NS W/KCL 40 MEQ/L 1,000 ML IV SCH (03:45)
[2021-12-02] MEDS ORDERED: LORazepam INJ 2 MG/ML (ATIVAN) VIAL IV PRN (03:45)
[2021-12-02] MEDS: ONDANSETRON 4 MG/2 ML (SDV) Z0FRAN IV PRN ×2 (03:51→10:02)
[2021-12-02] MEDS ORDERED: inSUlin ASPART (NovoLOG) 1 UNIT/0.01 ML (CHARGE PER UNIT) SC SCH (04:00)
--- NOTE | 2021-12-02 05:48 | History & Physical-Hospitalist ---
History of Present Illness HPI/Chief Complaint CC: DKA HPI: 31 yr old WM who is in the hospital every 2-3 weeks due to DKA who reports abdominal pain, nausea, and vomiting. He was started on an insulin drip after he was originally just given IV fluids and admitted to the floor. Beta hydroxybutyrate was elevated and bicarb was low meeting criteria for DKA. He was placed in the ICU this morning. Source: patient Exam Limitations: clinical condition Date Seen 12/02/21 Time Seen by a Provider: 10:00 Attending Physician Lore Knight DO [facility] [place],Counts Include [facility] B[facility] At [facility] Referring Physician Date of Admission Dec 02, 2021 at 02:43 Home Medications & Allergies Home Medications Reviewed patient Home Medication Reconciliation performed by pharmacy medication reconciliations smt technician and/or nursing. Patients Allergies have been reviewed. Allergies Allergies Coded Allergies Penicillins (Verified Allergy, Unknown, 05/23/06) Past Bhxidzh-Ieyqav-Aqmhrb Hx Patient Social History Marrital Status: single Employed/Student: unemployed Tobacco Use?: No Smoking Status: Never a Smoker Use of E-Cig and/or Vaping dev: No E-Cig or Vaping type used: Marijuana Use of E-Cig and/or Vaping Kennedy: Current Everyday User Substance use?: Yes Substance type: Marijuana Substance frequency: Couple times a week Alcohol Use?: No Pt feels they are or have been: No Immunizations Up To Date Date of Influenza Vaccine: Jun 16, 2021 First/Initial COVID19 Vaccinat: 01/03 Second COVID19 Vaccination Pierre: 02/03 Tetanus Booster (TDap): Unknown Hepatitis A: No Hepatitis B: No PED Vaccines UTD: No Date of Pneumonia Vaccine: Jul 16, 2016 Seasonal Allergies Seasonal Allergies: No Current Status Advance Directives: No Communicates: Verbally Primary Language: Portuguese Preferred Spoken Language: Portuguese Is interpretation needed?: No Past Medical History Pneumonia Currently Using CPAP: No Currently Using BIPAP: No Cardiomyopathy, Hypertension Sexually Transmitted Disease: No HIV/AIDS: No Diabetes, Insulin dep Did You Recieve Any Treatments: No Blood Disorders: No Adverse Reaction/Blood Tranf: No PMHx: Type I Diabetes Anxiety Diabetic Retinopathy Thyrotoxicosis Pneumonia Cardiomyopathy Gastroparesis Family Medical History Cardiovascular disease 19 FATHER Hypertension 19 FATHER No Pertinent Family Hx Review of Systems Constitutional: see HPI, malaise, weakness EENTM: no symptoms reported Respiratory: no symptoms reported Cardiovascular: no symptoms reported Gastrointestinal: abdominal pain, loss of appetite, nausea, vomiting Genitourinary: no symptoms reported Musculoskeletal: no symptoms reported Skin: no symptoms reported Psychiatric/Neurological: No Symptoms Reported All Other Systems Reviewed Negative Unless Noted: Yes Physical Exam Physical Exam Vital Signs Vital Signs - First Documented 12/01/21 20:39 Temp 35.8 Pulse 101 Resp 26 B/P (MAP) 179/99 (125) Pulse Ox 100 O2 Delivery Room Air Capillary Refill : Height, Weight, BMI Height: 5'11.00" Weight: 126lbs. 0.0oz. 57.140204er; 17.40 BMI Method:Stated General Appearance: Anxious, Chronically ill, Mild Distress, Thin Eyes: Right Eye Normal Inspection, Right Eye PERRL HEENT: PERRL/EOMI, Normal ENT Inspection, Pharynx Normal, Moist Mucous Membranes Neck: Full Range of Motion, Normal Inspection, Non Tender Respiratory: Chest Non Tender, Lungs Clear, Normal Breath Sounds, No Respiratory Distress, Accessory Muscle Use Cardiovascular: No Edema, No Gallop, No JVD, No Murmur, Normal Peripheral Pulses, Tachycardia Gastrointestinal: Normal Bowel Sounds, No Organomegaly, No Pulsatile Mass, Non Tender, Soft Back: Normal Inspection, No CVA Tenderness, No Vertebral Tenderness Extremity: Normal Capillary Refill, Normal Inspection, Normal Range of Motion, Non Tender, No Calf Tenderness, No Pedal Edema Neurologic/Psychiatric: Alert, Oriented x3, No Motor/Sensory Deficits, Normal Mood/Affect Skin: Normal Color, Warm/Dry Lymphatic: No Adenopathy Results Results/Procedures Labs Laboratory Tests 12/01/21 21:00 12/02/21 05:55 12/02/21 15:40 12/02/21 23:06 12/03/21 03:41 Patient resulted labs reviewed. Assessment/Plan Admission Diagnosis Assessment: DKA Tachycardia Cardiomyopathy Nausea and vomiting Hypertension Plan: Insulin drip IV fluids Admission Status: Inpatient Order (span 2 midnights) Reason for Inpatient Admission: dka Diagnosis/Problems Diagnosis/Problems (1) Diabetic ketoacidosis Status: Resolved Resolution Date/Time: 01/14/21 @ 12:30 LORE KNIGHT DO Dec 02, 2021 05:48
[2021-12-02 06:37] LABS: ALBUMIN 4.1 GM/DL (3.2-4.5); BASOPHILS % (AUTO) 0 % (0-10); EOSINOPHILS % (AUTO) 0 % (0-10); HEMATOCRIT 37 % (40-54); HEMOGLOBIN 12.5 g/dL (13.3-17.7); LYMPHOCYTES # (AUTO) 0.8 10^3/uL (1.0-4.0); LYMPHOCYTES % (AUTO) 7 % (12-44); MEAN CORPUSCULAR HEMOGLOBIN 26 pg (25-34); MEAN CORPUSCULAR HGB CONC 34 g/dL (32-36); MEAN CORPUSCULAR VOLUME 78 fL (80-99); MEAN PLATELET VOLUME 9.5 fL (9.0-12.2); MONOCYTES # (AUTO) 0.1 10^3/uL (0.0-1.0); MONOCYTES % (AUTO) 1 % (0-12); NEUTROPHILS # (AUTO) 10.4 10^3/uL (1.8-7.8); NEUTROPHILS % (AUTO) 91 % (42-75); PLATELET COUNT 318 10^3/uL (130-400); POTASSIUM 3.9 MMOL/L (3.6-5.0); WHITE BLOOD COUNT 11.5 10^3/uL (4.3-11.0)
[2021-12-02 06:38] LABS: CALCIUM 8.9 MG/DL (8.5-10.1)
[2021-12-02 06:39] LABS: TOTAL PROTEIN 7.3 GM/DL (6.4-8.2)
[2021-12-02 06:41] LABS: BILIRUBIN,TOTAL 0.6 MG/DL (0.1-1.0)
[2021-12-02 06:43] LABS: CREATININE SERUM 0.91 MG/DL (0.60-1.30)
[2021-12-02 06:46] LABS: MAGNESIUM 1.7 MG/DL (1.6-2.4)
[2021-12-02] MEDS ORDERED: morphine INJ 10 MG/ML 1ML (SYR OR VIAL) IVP PRN (07:00)
[2021-12-02] MEDS ORDERED: diphenhydrAMINE 25 MG TAB (BENADRYL) PO PRN (07:00)
[2021-12-02] MEDS ORDERED: HYDROcodone/APAP 5 MG/325 MG (LORTAB) TAB PO PRN (07:00)
[2021-12-02] MEDS ORDERED: ACETAMINOPHEN 325 MG TABLET PO PRN (07:00)
[2021-12-02] MEDS ORDERED: LOPERAMIDE 2 MG (IMODIUM) TABLET PO PRN (07:00)
[2021-12-02] MEDS ORDERED: CALCIUM CARBONATE 500 MG (TUMS) TAB.CHEW PO PRN (07:00)
[2021-12-02] MEDS ORDERED: NS IV 1000 ML 1,000 ML IV SCH (07:00)
[2021-12-02] MEDS ORDERED: PROMETHAZINE INJ 25 MG/ML (PHENERGAN) AMP IM PRN (07:00)
[2021-12-02] MEDS ORDERED: DOCUSATE SODIUM 100 MG (COLACE) CAP PO PRN (07:00)
[2021-12-02] MEDS ORDERED: ALPRAZolam 0.25 MG (XANAX) TAB PO PRN (07:00)
[2021-12-02] MEDS ORDERED: MELATONIN 3 MG TABLET PO PRN (07:00)
[2021-12-02 07:22] LABS: BAND NEUTROPHILS 1 %; LYMPHOCYTES % (MANUAL) 7 %; MONOCYTES % (MANUAL) 1 %; NEUTROPHILS % (MANUAL) 91 %
[2021-12-02 07:23] LABS: RBC MORPH NORMAL
[2021-12-02] MEDS: FAMOTIDINE 20MG/2ML IV (PEPCID) IVP SCH ×2 (08:32→20:51)
[2021-12-02] MEDS: PANTOPRAZOLE 40 MG (PROTONIX) VIAL IV SCH (08:32)
[2021-12-02] MEDS: polyethylene glycoL POWDER 17 GM (MIRALAX) PACK PO SCH ×2 (08:32→20:51)
[2021-12-02] MEDS: ENOXAPARIN 30 MG/0.3 ML (LOVENOX) SYR SC SCH (08:32)
[2021-12-02] MEDS: POTASSIUM CL 10MEQ/50ML IVPB 50 ML IV SCH ×7 (08:33→23:03)
[2021-12-02] MEDS: 1/2 NS IV SOLUTION 1,000 ML IV SCH ×5 (08:44→20:52)
--- NOTE | 2021-12-02 10:18 | Tele-ICU Progress Note ---
Subjective Date Seen by a Provider: Dec 02, 2021 Time Seen by a Provider: 10:18 Sepsis Event Evaluation Height, Weight, BMI Height: 5'11.00" Weight: 126lbs. 0.0oz. 57.874788sp; 17.40 BMI Method:Stated Exam Exam Patient acknowledged, consented, and participated in this virtual visit which was conducted using real time audio/video Vital Signs Date Time Temp Pulse Resp B/P (MAP) Pulse Ox O2 Delivery O2 Flow Rate FiO2 12/02/21 09:00 118 23 101/59 (73) 98 Room Air 12/02/21 08:00 124 26 81/39 (53) 99 Room Air 12/02/21 08:00 98 Room Air 12/02/21 07:50 37.8 140 20 115/54 (74) 97 Room Air 12/02/21 07:00 127 12/02/21 04:15 37.4 122 19 152/91 (111) 98 Room Air 12/02/21 04:03 130 12/02/21 03:30 100 Room Air 12/02/21 03:15 117 18 171/105 97 Room Air 12/01/21 20:39 35.8 101 26 179/99 (125) 100 Room Air I & O 12/02/21 07:00 Intake Total 0 ml Output Total 800 ml Balance -800 ml Height & Weight Height: 5'11.00" Weight: 126lbs. 0.0oz. 57.015259mc; 17.40 BMI Method:Stated General Appearance: WD/WN, Chronically ill, Thin Neck: Full Range of Motion, Normal Inspection Respiratory: No Accessory Muscle Use, No Respiratory Distress Cardiovascular: Normal Peripheral Pulses, Tachycardia Extremity: Normal Capillary Refill, Normal Inspection Neurologic/Psychiatric: Alert, Oriented x3 Skin: Normal Color, Warm/Dry Results Lab Laboratory Tests 12/01/21 21:00 12/02/21 05:55 Assessment/Plan Assessment/Plan (Tele-ICU Physician Available chart/ vitals / labs / Images reviewed H&P is from ER notes Patient's information available about PMH, Shx, Fhx allergy reviewed in EMR. ROS as per chart and RN report Now in ICU, hemodynamically stable Video assessment done using teleICU camera, rest of exam as per RN A/P DKA , DM I *Insulin drip *Tx Gastroparesis - difficult to control in past on multiple meds , possible cannabis hyperemesis Leukocytosis - reactive? >off ABX , follow Plans in collaboration with bedside consultants and IM MDs. Discussed with RN to reach out if any questions or concerns A total of 15 minutes of critical care time was devoted to this patient today, required to treat and/or prevent further deterioration of critical care condition ( as above ) . MAGI FAGAN MD Dec 02, 2021 10:18
[2021-12-02] MEDS: D5 1/2 NS 1000 ML IV SOLUTION 1,000 ML IV SCH ×3 (10:40→20:51)
[2021-12-02] MEDS ORDERED: SUCR1TAB36 PO (11:15)
[2021-12-02] MEDS ORDERED: ONDA-106 PO (11:15)
[2021-12-02] MEDS: METOCLOPRAMIDE INJ 10 MG/2 ML (REGLAN) IVP SCH ×3 (12:50→23:57)
[2021-12-02 16:07] LABS: CALCIUM 8.1 MG/DL (8.5-10.1)
[2021-12-02 16:11] LABS: CREATININE SERUM 0.91 MG/DL (0.60-1.30)
[2021-12-02 23:35] LABS: POTASSIUM 3.7 MMOL/L (3.6-5.0)
[2021-12-02 23:36] LABS: CALCIUM 7.7 MG/DL (8.5-10.1)
[2021-12-02 23:40] LABS: CREATININE SERUM 0.81 MG/DL (0.60-1.30)
[2021-12-03] VITALS (24 sets, daily range): BP systolic 111–173; BP diastolic 80–113
[2021-12-03] MEDS: D5 1/2 NS 1000 ML IV SOLUTION 1,000 ML IV SCH ×4 (00:47→23:55)
[2021-12-03] MEDS: POTASSIUM CL 10MEQ/50ML IVPB 50 ML IV SCH ×11 (00:47→23:00)
[2021-12-03] MEDS: 1/2 NS IV SOLUTION 1,000 ML IV SCH ×6 (02:48→19:49)
[2021-12-03] MEDS: ONDANSETRON 4 MG/2 ML (SDV) Z0FRAN IV PRN (03:39)
[2021-12-03 04:20] LABS: BASOPHILS % (AUTO) 0 % (0-10); EOSINOPHILS # (AUTO) 0.1 10^3/uL (0.0-0.3); EOSINOPHILS % (AUTO) 1 % (0-10); HEMATOCRIT 35 % (40-54); HEMOGLOBIN 11.4 g/dL (13.3-17.7); LYMPHOCYTES # (AUTO) 2.9 10^3/uL (1.0-4.0); LYMPHOCYTES % (AUTO) 22 % (12-44); MEAN CORPUSCULAR HEMOGLOBIN 26 pg (25-34); MEAN CORPUSCULAR HGB CONC 32 g/dL (32-36); MEAN CORPUSCULAR VOLUME 80 fL (80-99); MEAN PLATELET VOLUME 9.2 fL (9.0-12.2); MONOCYTES # (AUTO) 0.9 10^3/uL (0.0-1.0); MONOCYTES % (AUTO) 7 % (0-12); NEUTROPHILS # (AUTO) 9.4 10^3/uL (1.8-7.8); NEUTROPHILS % (AUTO) 70 % (42-75); PLATELET COUNT 274 10^3/uL (130-400); WHITE BLOOD COUNT 13.3 10^3/uL (4.3-11.0)
[2021-12-03 04:38] LABS: ALBUMIN 3.4 GM/DL (3.2-4.5)
[2021-12-03 04:39] LABS: POTASSIUM 3.6 MMOL/L (3.6-5.0)
[2021-12-03 04:40] LABS: CALCIUM 8.3 MG/DL (8.5-10.1)
[2021-12-03 04:41] LABS: TOTAL PROTEIN 6.2 GM/DL (6.4-8.2)
[2021-12-03 04:43] LABS: BILIRUBIN,TOTAL 0.5 MG/DL (0.1-1.0)
[2021-12-03 04:44] LABS: PHOSPHORUS 2.5 MG/DL (2.3-4.7)
[2021-12-03 04:45] LABS: CREATININE SERUM 0.81 MG/DL (0.60-1.30)
[2021-12-03 04:47] LABS: MAGNESIUM 1.6 MG/DL (1.6-2.4)
[2021-12-03] MEDS: METOCLOPRAMIDE INJ 10 MG/2 ML (REGLAN) IVP SCH ×4 (05:00→22:59)
[2021-12-03] MEDS: KCL 20 MEQ TAB (K-DUR) PO SCH (05:11)
[2021-12-03] MEDS: MAGNESIUM 1 GM/100 ML IVPB 100 ML IV SCH ×3 (05:11→06:40)
[2021-12-03] MEDS ORDERED: MAGNESIUM 1 GM/100 ML IVPB 200 ML IV ONE (05:15)
[2021-12-03] MEDS ORDERED: POTASSIUM CL 10MEQ/50ML IVPB 100 ML IV ONE (05:15)
[2021-12-03] MEDS: ENOXAPARIN 30 MG/0.3 ML (LOVENOX) SYR SC SCH (05:23)
--- NOTE | 2021-12-03 06:07 | Progress Note - Hospitalist ---
Subjective HPI/CC On Admission Date Seen by Provider: Dec 03, 2021 Time Seen by Provider: 11:00 CC: DKA HPI: 31 yr old WM who is in the hospital every 2-3 weeks due to DKA who reports abdominal pain, nausea, and vomiting. He was started on an insulin drip after he was originally just given IV fluids and admitted to the floor. Beta hydroxybutyrate was elevated and bicarb was low meeting criteria for DKA. He was placed in the ICU this morning. Subjective/Events-last exam Pt still having some DKA issues Abdominal pain and nausea continue Hypertension is in the 150's Heart rate is 90-100 Overall doing better but still in acidosis Review of Systems General: Fatigue, Malaise Gastrointestinal: Nausea, Vomiting, Abdominal Pain Objective Exam Vital Signs Vital Signs Date Time Temp Pulse Resp B/P (MAP) Pulse Ox O2 Delivery O2 Flow Rate FiO2 12/04/21 05:00 98 14 138/88 (105) 99 Room Air 12/04/21 04:00 36.6 Capillary Refill : General Appearance: No Apparent Distress, WD/WN, Chronically ill, Thin Respiratory: Lungs Clear, Normal Breath Sounds Cardiovascular: Regular Rate, Rhythm, Tachycardia Neurologic/Psychiatric: Alert, Oriented x3, No Motor/Sensory Deficits, Normal Mood/Affect Results/Procedures Lab Laboratory Tests 12/03/21 13:10 12/03/21 20:56 12/04/21 04:06 Patient resulted labs reviewed. Assessment/Plan Assessment and Plan Assess & Plan/Chief Complaint Assessment: DKA Cardiomyopathy Hypertension Plan: DKA treatment to continue Diagnosis/Problems Diagnosis/Problems (1) Diabetic ketoacidosis Status: Resolved Resolution Date/Time: 01/14/21 @ 12:30 NORAH JOSÉ DO Dec 03, 2021 06:07
[2021-12-03] MEDS: polyethylene glycoL POWDER 17 GM (MIRALAX) PACK PO SCH ×2 (07:52→19:49)
[2021-12-03] MEDS: PANTOPRAZOLE 40 MG (PROTONIX) VIAL IV SCH (07:52)
[2021-12-03] MEDS: FAMOTIDINE 20MG/2ML IV (PEPCID) IVP SCH ×2 (07:52→20:05)
--- NOTE | 2021-12-03 11:17 | Tele-ICU Progress Note ---
Subjective Date Seen by a Provider: Dec 03, 2021 Time Seen by a Provider: 11:17 Sepsis Event Evaluation Height, Weight, BMI Height: 5'11.00" Weight: 126lbs. 0.0oz. 57.740833qh; 17.40 BMI Method:Stated Exam Exam Patient acknowledged, consented, and participated in this virtual visit which was conducted using real time audio/video Vital Signs Date Time Temp Pulse Resp B/P (MAP) Pulse Ox O2 Delivery O2 Flow Rate FiO2 12/03/21 10:00 101 22 156/109 (125) 98 Room Air 12/03/21 09:00 96 27 152/93 (112) 99 Room Air 12/03/21 08:00 93 17 170/111 (130) 99 Room Air 12/03/21 07:58 99 Room Air 12/03/21 07:39 37.3 12/03/21 07:00 97 16 160/113 (129) 98 Room Air 12/03/21 07:00 98 12/03/21 06:00 101 21 161/108 (125) 99 Room Air 12/03/21 05:00 101 21 158/105 (122) 100 Room Air 12/03/21 04:00 88 18 146/89 (108) 100 Room Air 12/03/21 03:45 36.4 Room Air 12/03/21 03:40 99 Room Air 12/03/21 03:00 105 24 125/86 (99) 99 Room Air 12/03/21 02:00 88 16 111/82 (92) 99 Room Air 12/03/21 01:00 87 12/03/21 01:00 87 15 117/80 (92) 98 Room Air 12/03/21 00:00 36.5 Room Air 12/03/21 00:00 89 21 125/92 (103) 100 Room Air 12/02/21 23:05 99 Room Air 12/02/21 23:00 82 17 106/74 (85) 98 Room Air 12/02/21 22:01 98 Room Air 12/02/21 22:00 84 16 111/82 (92) 99 Room Air 12/02/21 21:00 102 23 134/93 (107) 99 Room Air 12/02/21 20:00 87 20 126/78 (94) 99 Room Air 12/02/21 19:30 98 Room Air 12/02/21 19:00 96 17 123/70 (87) 99 Room Air 12/02/21 19:00 96 12/02/21 19:00 36.6 91 16 123/70 (87) 98 Room Air 12/02/21 18:00 96 13 124/81 (95) 98 Room Air 12/02/21 17:00 95 12 127/78 (94) 99 Room Air 12/02/21 16:29 36.9 12/02/21 16:00 102 23 125/83 (97) 97 Room Air 12/02/21 15:00 105 20 120/70 (87) 98 Room Air 12/02/21 14:00 114 25 129/68 (88) 98 Room Air 12/02/21 13:00 116 25 89/68 (75) 99 Room Air 12/02/21 12:37 112 12/02/21 12:00 114 20 99/51 (67) 99 Room Air 12/02/21 12:00 37.1 I & O 12/03/21 06:59 Intake Total 5710 ml Output Total 3125 ml Balance 2585 ml Height & Weight Height: 5'11.00" Weight: 126lbs. 0.0oz. 57.688151hl; 17.40 BMI Method:Stated General Appearance: Anxious, Chronically ill, Mild Distress, Thin HEENT: PERRL/EOMI, Normal ENT Inspection, Pharynx Normal, Moist Mucous Membranes Neck: Full Range of Motion, Normal Inspection, Non Tender Respiratory: Chest Non Tender, Lungs Clear, Normal Breath Sounds, No Respiratory Distress, Accessory Muscle Use Cardiovascular: No Edema, No Gallop, No JVD, No Murmur, Normal Peripheral Pulses, Tachycardia Extremity: Normal Capillary Refill, Normal Inspection, Normal Range of Motion, Non Tender, No Calf Tenderness, No Pedal Edema Neurologic/Psychiatric: Alert, Oriented x3, No Motor/Sensory Deficits, Normal Mood/Affect Skin: Normal Color, Warm/Dry Lymphatic: No Adenopathy Results Lab Laboratory Tests 12/01/21 21:00 12/02/21 05:55 12/02/21 15:40 12/02/21 23:06 12/03/21 03:41 Assessment/Plan Assessment/Plan (Tele-ICU Physician Available chart/ vitals / labs / Images reviewed H&P is from ER notes Patient's information available about PMH, Shx, Fhx allergy reviewed in EMR. ROS as per chart and RN report Now in ICU, hemodynamically stable Video assessment done using teleICU camera, rest of exam as per RN A/P DKA , DM I *Insulin drip - hoping to stop today - long acting as per PCP *Tx Gastroparesis - difficult to control in past on multiple meds , possible cannabis hyperemesis Leukocytosis - reactive? >off ABX , follow Plans in collaboration with bedside consultants and IM MDs. Discussed with RN to reach out if any questions or concerns A total of 15 minutes of critical care time was devoted to this patient today, required to treat and/or prevent further deterioration of critical care condition ( as above ) . MAGI FAGAN MD Dec 03, 2021 11:17
[2021-12-03 13:32] LABS: POTASSIUM 4.3 MMOL/L (3.6-5.0)
[2021-12-03 13:34] LABS: CALCIUM 8.4 MG/DL (8.5-10.1)
[2021-12-03 13:38] LABS: CREATININE SERUM 0.76 MG/DL (0.60-1.30)
[2021-12-03 21:16] LABS: CHLORIDE 105 MMOL/L (98-107); POTASSIUM 3.8 MMOL/L (3.6-5.0); SODIUM 135 MMOL/L (135-145)
[2021-12-03 21:17] LABS: CALCIUM 8.2 MG/DL (8.5-10.1); GLUCOSE 136 MG/DL (70-105)
[2021-12-03 21:19] LABS: CARBON DIOXIDE 22 MMOL/L (21-32)
[2021-12-03 21:21] LABS: CREATININE SERUM 0.74 MG/DL (0.60-1.30); GFR ESTIMATED 123
[2021-12-03 21:22] LABS: BUN/CREATININE RATIO 3
[2021-12-04] VITALS (16 sets, daily range): BP systolic 127–157; BP diastolic 85–112
[2021-12-04] MEDS: POTASSIUM CL 10MEQ/50ML IVPB 50 ML IV SCH ×5 (01:04→07:01)
[2021-12-04] MEDS: 1/2 NS IV SOLUTION 1,000 ML IV SCH ×4 (01:10→21:02)
[2021-12-04 04:46] LABS: BASOPHILS % (AUTO) 0 % (0-10); EOSINOPHILS # (AUTO) 0.1 10^3/uL (0.0-0.3); EOSINOPHILS % (AUTO) 1 % (0-10); HEMATOCRIT 34 % (40-54); HEMOGLOBIN 11.2 g/dL (13.3-17.7); LYMPHOCYTES % (AUTO) 25 % (12-44); MEAN CORPUSCULAR HEMOGLOBIN 26 pg (25-34); MEAN CORPUSCULAR HGB CONC 33 g/dL (32-36); MEAN CORPUSCULAR VOLUME 79 fL (80-99); MEAN PLATELET VOLUME 9.4 fL (9.0-12.2); MONOCYTES # (AUTO) 0.6 10^3/uL (0.0-1.0); MONOCYTES % (AUTO) 7 % (0-12); NEUTROPHILS # (AUTO) 5.4 10^3/uL (1.8-7.8); NEUTROPHILS % (AUTO) 66 % (42-75); PLATELET COUNT 261 10^3/uL (130-400); WHITE BLOOD COUNT 8.1 10^3/uL (4.3-11.0)
[2021-12-04 05:07] LABS: ALBUMIN 3.1 GM/DL (3.2-4.5); POTASSIUM 4.1 MMOL/L (3.6-5.0)
[2021-12-04 05:09] LABS: CALCIUM 8.2 MG/DL (8.5-10.1)
[2021-12-04 05:10] LABS: TOTAL PROTEIN 5.7 GM/DL (6.4-8.2)
[2021-12-04 05:12] LABS: BILIRUBIN,TOTAL 0.5 MG/DL (0.1-1.0)
[2021-12-04 05:13] LABS: PHOSPHORUS 2.8 MG/DL (2.3-4.7)
[2021-12-04 05:14] LABS: CREATININE SERUM 0.75 MG/DL (0.60-1.30)
[2021-12-04] MEDS: KCL 20 MEQ TAB (K-DUR) PO SCH (05:37)
[2021-12-04] MEDS: MAGNESIUM 1 GM/100 ML IVPB 100 ML IV SCH (05:37)
[2021-12-04] MEDS: ENOXAPARIN 30 MG/0.3 ML (LOVENOX) SYR SC SCH (06:01)
[2021-12-04] MEDS: METOCLOPRAMIDE INJ 10 MG/2 ML (REGLAN) IVP SCH ×3 (06:01→17:50)
[2021-12-04] MEDS ORDERED: inSUlin ASPART (NovoLOG) 1 UNIT/0.01 ML (CHARGE PER UNIT) SC SCH (06:16)
--- NOTE | 2021-12-04 06:35 | Progress Note - Hospitalist ---
Subjective HPI/CC On Admission Date Seen by Provider: Dec 04, 2021 Time Seen by Provider: 11:30 CC: DKA HPI: 31 yr old WM who is in the hospital every 2-3 weeks due to DKA who reports abdominal pain, nausea, and vomiting. He was started on an insulin drip after he was originally just given IV fluids and admitted to the floor. Beta hydroxybutyrate was elevated and bicarb was low meeting criteria for DKA. He was placed in the ICU this morning. Subjective/Events-last exam Patient doing much Better Gap closed and acidosis resolved Eating and drinking better Checked meds and labs Review of Systems Gastrointestinal: Nausea, Abdominal Pain Objective Exam Vital Signs Vital Signs Date Time Temp Pulse Resp B/P (MAP) Pulse Ox O2 Delivery O2 Flow Rate FiO2 12/05/21 00:00 86 17 132/88 (103) 98 Room Air 12/04/21 11:30 37.0 Capillary Refill : General Appearance: No Apparent Distress, WD/WN, Chronically ill, Thin Respiratory: Lungs Clear, Normal Breath Sounds Cardiovascular: Regular Rate, Rhythm Neurologic/Psychiatric: Alert, Oriented x3, No Motor/Sensory Deficits, Depressed Affect Results/Procedures Lab Laboratory Tests 12/05/21 05:20 Patient resulted labs reviewed. Assessment/Plan Assessment and Plan Assess & Plan/Chief Complaint Assessment: DKA Cardiomyopathy Hypertension Plan: DKA treatment to continue 12/04/2021: Supportive care Moved to fourth floor Diagnosis/Problems Diagnosis/Problems (1) Diabetic ketoacidosis Status: Resolved Resolution Date/Time: 01/14/21 @ 12:30 NORAH JOSÉ DO Dec 04, 2021 06:35
[2021-12-04] MEDS: FAMOTIDINE 20MG/2ML IV (PEPCID) IVP SCH ×2 (08:28→21:02)
[2021-12-04] MEDS: PANTOPRAZOLE 40 MG (PROTONIX) VIAL IV SCH (08:29)
--- NOTE | 2021-12-04 08:44 | Tele-ICU Progress Note ---
Progress Note video rounds completed 31 y/o with DM admitted with DKA and intractable N, V Placed on insulin drip and antiemetics given Now improved AG normalized and Glu this am was 116 Focused Exam Height, Weight, BMI Height: 5'11.00" Weight: 126lbs. 0.0oz. 57.726387tq; 17.40 BMI Method:Stated Laboratory Tests 12/03/21 13:10 12/03/21 20:56 12/04/21 04:06 Results/Procedures Lab Laboratory Tests 12/02/21 15:40 12/02/21 23:06 12/03/21 03:41 12/03/21 13:10 12/03/21 20:56 12/04/21 04:06 GRICELDA FLANAGAN MD Dec 04, 2021 08:44
[2021-12-04] MEDS: polyethylene glycoL POWDER 17 GM (MIRALAX) PACK PO SCH ×2 (09:00→21:03)
[2021-12-04] MEDS: PANTOPRAZOLE 40 MG (PROTONIX) TAB PO SCH (09:00)
[2021-12-04] MEDS: lisINopril 10 MG (PRINIVIL) TABLET PO SCH (09:31)
[2021-12-04] MEDS: SUCRALFATE 1 GM (CARAFATE) TAB PO SCH (09:31)
[2021-12-04] MEDS: inSUlin ASPART (NovoLOG) 1 UNIT/0.01 ML (CHARGE PER UNIT) SC SCH ×3 (11:38→22:19)
[2021-12-05] VITALS: BP 132/88
[2021-12-05 05:51] LABS: BASOPHILS % (AUTO) 0 % (0-10); EOSINOPHILS # (AUTO) 0.1 10^3/uL (0.0-0.3); EOSINOPHILS % (AUTO) 1 % (0-10); HEMATOCRIT 39 % (40-54); HEMOGLOBIN 12.9 g/dL (13.3-17.7); LYMPHOCYTES # (AUTO) 1.8 10^3/uL (1.0-4.0); LYMPHOCYTES % (AUTO) 22 % (12-44); MEAN CORPUSCULAR HEMOGLOBIN 26 pg (25-34); MEAN CORPUSCULAR HGB CONC 33 g/dL (32-36); MEAN CORPUSCULAR VOLUME 78 fL (80-99); MEAN PLATELET VOLUME 9.4 fL (9.0-12.2); MONOCYTES # (AUTO) 0.6 10^3/uL (0.0-1.0); MONOCYTES % (AUTO) 7 % (0-12); NEUTROPHILS # (AUTO) 5.6 10^3/uL (1.8-7.8); NEUTROPHILS % (AUTO) 70 % (42-75); PLATELET COUNT 294 10^3/uL (130-400); WHITE BLOOD COUNT 8.1 10^3/uL (4.3-11.0)
[2021-12-05 06:03] LABS: ALBUMIN 3.6 GM/DL (3.2-4.5); POTASSIUM 4.9 MMOL/L (3.6-5.0)
[2021-12-05 06:04] LABS: CALCIUM 8.8 MG/DL (8.5-10.1)
[2021-12-05 06:05] LABS: TOTAL PROTEIN 6.8 GM/DL (6.4-8.2)
[2021-12-05 06:07] LABS: BILIRUBIN,TOTAL 0.6 MG/DL (0.1-1.0)
[2021-12-05 06:08] LABS: PHOSPHORUS 3.5 MG/DL (2.3-4.7)
[2021-12-05 06:09] LABS: CREATININE SERUM 0.82 MG/DL (0.60-1.30)
[2021-12-05 06:12] LABS: MAGNESIUM 2.1 MG/DL (1.6-2.4)
[2021-12-05] MEDS: METOCLOPRAMIDE INJ 10 MG/2 ML (REGLAN) IVP SCH ×2 (06:49)
[2021-12-05] MEDS: ENOXAPARIN 30 MG/0.3 ML (LOVENOX) SYR SC SCH (06:49)
[2021-12-05] MEDS: inSUlin ASPART (NovoLOG) 1 UNIT/0.01 ML (CHARGE PER UNIT) SC SCH ×2 (06:49→10:52)
[2021-12-05] MEDS: 1/2 NS IV SOLUTION 1,000 ML IV SCH (07:35)
[2021-12-05 08:00] VITALS: BP 162/107
[2021-12-05] MEDS: PANTOPRAZOLE 40 MG (PROTONIX) TAB PO SCH (08:52)
[2021-12-05] MEDS: FAMOTIDINE 20MG/2ML IV (PEPCID) IVP SCH (08:52)
[2021-12-05] MEDS: SUCRALFATE 1 GM (CARAFATE) TAB PO SCH (08:53)
[2021-12-05] MEDS: lisINopril 10 MG (PRINIVIL) TABLET PO SCH (08:53)
[2021-12-05] MEDS: polyethylene glycoL POWDER 17 GM (MIRALAX) PACK PO SCH (08:57)
[2021-12-05] MEDS: PANTOPRAZOLE 40 MG (PROTONIX) VIAL IV SCH (08:57)
[2021-12-05 09:00] VITALS: BP 139/100
[2021-12-05 10:00] VITALS: BP 124/89
--- NOTE | 2021-12-05 11:09 | Discharge Summary ---
Discharge Summary Hospital Course Was the Problem List Reviewed?: Yes Problems/Dx: (1) Diabetic ketoacidosis Status: Resolved Hospital Course Date of Admission: Dec 02, 2021 at 02:43 Admission Diagnosis : Family Physician/Provider: [facility] Date of Discharge: 12/05/21 Discharge Diagnosis: dka Hospital Course: Patient had a lengthy course after admitted for recurrent DKA. NO complications. DKA resolved with insulin drip. Labs and Pending Lab Test: Laboratory Tests 12/04/21 16:21: Glucometer 56*L 12/04/21 17:00: Glucometer 131H 12/04/21 21:01: Glucometer 270H 12/04/21 22:17: Glucometer 164H 12/05/21 05:20: White Blood Count 8.1, Red Blood Count 5.00, Hemoglobin 12.9L, Hematocrit 39L, Mean Corpuscular Volume 78L, Mean Corpuscular Hemoglobin 26, Mean Corpuscular Hemoglobin Concent 33, Red Cell Distribution Width 14.0, Platelet Count 294, Mean Platelet Volume 9.4, Immature Granulocyte % (Auto) 0, Neutrophils (%) (Auto) 70, Lymphocytes (%) (Auto) 22, Monocytes (%) (Auto) 7, Eosinophils (%) (Auto) 1, Basophils (%) (Auto) 0, Neutrophils # (Auto) 5.6, Lymphocytes # (Auto) 1.8, Monocytes # (Auto) 0.6, Eosinophils # (Auto) 0.1, Basophils # (Auto) 0.0, Immature Granulocyte # (Auto) 0.0, Sodium Level 135, Potassium Level 4.9, Chloride Level 100, Carbon Dioxide Level 26, Anion Gap 9, Blood Urea Nitrogen 7, Creatinine 0.82, Estimat Glomerular Filtration Rate 120, BUN/Creatinine Ratio 9, Glucose Level 127H, Calcium Level 8.8, Corrected Calcium 9.1, Phosphorus Level 3.5, Magnesium Level 2.1, Total Bilirubin 0.6, Aspartate Amino Transf (AST/SGOT) 14, Alanine Aminotransferase (ALT/SGPT) 11, Alkaline Phosphatase 103, Total Protein 6.8, Albumin 3.6 12/05/21 10:15: Glucometer 182H Home Meds Active Reported Carafate (Sucralfate) 1 Gm Tablet 1 Gm PO DAILY Ondansetron HCl 8 Mg Tablet 8 Mg PO Q6H PRN Lisinopril 10 Mg Tablet 10 Mg PO DAILY Metoclopramide HCl 10 Mg Tablet 10 Mg PO BIDAC Pantoprazole Sodium 40 Mg Tablet.dr 40 Mg PO DAILY Novolog (Insulin Aspart) 100 Unit/1 Ml Susp Unit SQ TIDAC MDD 30 UNITS USES 2 UNITS PER EVERY CARB Levemir (Insulin Determir) 1,000 Units/10 Ml Soln 5-10 Units SQ HS Assessment/Pt Instructions PCP 1week Discharge Planning: <30 minutes discharge planning Discharge Instructions Discharge Diet: ADA Diet Activity as Tolerated: Yes Discharge Physical Examination Vital Signs Vital Signs Date Time Temp Pulse Resp B/P (MAP) Pulse Ox O2 Delivery O2 Flow Rate FiO2 12/05/21 10:00 98 20 124/89 (101) 99 Room Air 12/05/21 08:00 36.9 General Appearance: No Apparent Distress, WD/WN, Chronically ill Respiratory: Lungs Clear, Normal Breath Sounds Cardiovascular: Regular Rate, Rhythm Neurologic/Psychiatric: Alert, Oriented x3, No Motor/Sensory Deficits, Normal M ood/Affect Allergies: Coded Allergies: Penicillins (Verified Allergy, Unknown, 05/23/06) Discharge Summary Date of Admission Dec 02, 2021 at 02:43 Date of Discharge Discharge Date: Dec 05, 2021 Admission Diagnosis Assessment: DKA Tachycardia Cardiomyopathy Nausea and vomiting Hypertension Plan: Insulin drip IV fluids Discharge Diagnosis Assessment: DKA Cardiomyopathy Hypertension Plan: DKA treatment to continue 12/04/2021: Supportive care Moved to fourth floor (1) Diabetic ketoacidosis Status: Resolved NORAH JOSÉ DO Dec 05, 2021 11:09
== END 2021-12-05 11:50 | disposition home or self-care (01) ==
LOC: EDUNIT# 20:29 → ER 20:32 → 4TH 12-02 02:43 → ICU 12-02 07:46
PROVIDERS: ADMIT Internal Medicine; ATTEND Internal Medicine
DX: E10.10 Type 1 diabetes mellitus with ketoacidosis without coma (principal); I10 Essential (primary) hypertension; I42.9 Cardiomyopathy, unspecified; F17.290 Nicotine dependence, other tobacco product, uncomplicated; E87.6 Hypokalemia; R06.4 Hyperventilation; R11.2 Nausea with vomiting, unspecified; Z79.899 Other long term (current) drug therapy
CPT/HCPCS: 80048 ×2; 80053 ×5; 80306; 81000; 82010 ×2; 82805; 82947 ×5; 83735 ×4; 84100 ×3; 85007; 85025 ×4; 85027; 85610; 93041; 96361; 96374; 96375; 99284; G0378; 36415

== ENCOUNTER 2022-02-14 09:28 | Inpatient (IN) | payer OTHER ==
[2022-02-14] VITALS (11 sets, daily range): BP systolic 103–165; BP diastolic 65–108
[~2022-02-14] VITALS: Ht 180.3 cm; Wt 57.0 kg
[~2022-02-14 09:28] MED LIST changes: +ONDA-106 PO; +SUCR1TAB36 PO
[2022-02-14] MEDS ORDERED: NS IV 1000 ML 1,000 ML IV SCH ×2 (09:45→13:45)
[2022-02-14 10:25] LABS: BASOPHILS % (AUTO) 0 % (0-10); EOSINOPHILS # (AUTO) 0.1 10^3/uL (0.0-0.3); EOSINOPHILS % (AUTO) 0 % (0-10); HEMATOCRIT 39 % (40-54); HEMOGLOBIN 13.1 g/dL (13.3-17.7); LYMPHOCYTES # (AUTO) 1.3 10^3/uL (1.0-4.0); LYMPHOCYTES % (AUTO) 11 % (12-44); MEAN CORPUSCULAR HEMOGLOBIN 26 pg (25-34); MEAN CORPUSCULAR HGB CONC 34 g/dL (32-36); MEAN CORPUSCULAR VOLUME 79 fL (80-99); MEAN PLATELET VOLUME 8.8 fL (9.0-12.2); MONOCYTES # (AUTO) 0.5 10^3/uL (0.0-1.0); MONOCYTES % (AUTO) 4 % (0-12); NEUTROPHILS # (AUTO) 10.6 10^3/uL (1.8-7.8); NEUTROPHILS % (AUTO) 84 % (42-75); PLATELET COUNT 255 10^3/uL (130-400); WHITE BLOOD COUNT 12.6 10^3/uL (4.3-11.0)
[2022-02-14] MEDS ORDERED: ONDANSETRON 4 MG/2 ML (SDV) Z0FRAN ONE (10:31)
--- NOTE | 2022-02-14 10:38 | ED GI ---
General Chief Complaint: Abdominal/GI Problems Stated Complaint: DKA Nursing Triage Note: PT AMB TO RM 9 WITH COMPLAINT OF ABD PAIN, NAUSEA. PT STATES THE VOMITING STARTED EARLY THIS AM. PT IS TYPE 1 DIABETIC. BS 184 AT HOME. Source of Information: Patient Exam Limitations: No Limitations History of Present Illness Date Seen by Provider: February 14, 2022 Time Seen by Provider: 10:04 Initial Comments The patient presents the ER by private complaints with chief complaint of abdominal discomfort nausea vomiting starting this morning when he woke up. Blood sugar was 184 at home. He says his blood sugars been up and down for the past few days but he has not been sick with anything. He does not use a pump. 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 [facility] and takes Levemir 10 units at night and in the morning and and on a sliding scale NovoLog. He has not been missing doses. Last time he ate was yesterday. He was in DKA about a month ago. Allergies and Home Medications Allergies Coded Allergies: Penicillins (Verified Allergy, Unknown, 05/23/06) Patient Home Medication List Home Medication List Reviewed: Yes Insulin Aspart (Novolog) 100 Unit/1 Ml Susp, UNIT SQ TIDAC, (Reported) Entered as Reported by: NICOLLE MUNSON on 11/28/19 1021 Insulin Determir (Levemir) 1,000 Units/10 Ml Soln, 5-10 UNITS SQ HS, (Reported) Entered as Reported by: NICOLLE MUNSON on 11/28/19 1021 Lisinopril (Lisinopril) 10 Mg Tablet, 10 MG PO DAILY, (Reported) Entered as Reported by: YUMIKO SNOW on 08/18/21 1159 Metoclopramide HCl (Metoclopramide HCl) 10 Mg Tablet, 10 MG PO BIDAC, (Reported) Entered as Reported by: DANNIE PERDOMO on 01/11/21 0952 Ondansetron HCl (Ondansetron HCl) 8 Mg Tablet, 8 MG PO Q6H PRN for NAUSEA/VOMITING-1ST LINE, (Reported) Entered as Reported by: YUMIKO SNOW on 12/02/21 1115 Pantoprazole Sodium (Pantoprazole Sodium) 40 Mg Tablet.dr, 40 MG PO DAILY, (Reported) Entered as Reported by: DANNIE PERDOMO on 01/11/21 0952 Sucralfate (Carafate) 1 Gm Tablet, 1 GM PO DAILY, (Reported) Entered as Reported by: YUMIKO SNOW on 12/02/21 1115 Review of Systems Review of Systems Constitutional: No chills, No diaphoresis EENTM: No Blurred Vision, No Double Vision Respiratory: Denies Cough, Denies Orthopnea Cardiovascular: Chest Pain; Denies Edema, Denies Irregular Heart Rate, Denies Lightheadedness Gastrointestinal: Denies Abdominal Pain, Denies Constipated, Denies Diarrhea, Denies Nausea Genitourinary: Denies Burning, Denies Discharge Musculoskeletal: No back pain, No joint pain All Other Systems Reviewed Negative Unless Noted: Yes Past Rpmcofa-Rroevt-Qxnbue Hx Patient Social History Tobacco Use?: No Use of E-Cig and/or Vaping dev: Yes Substance use?: Yes Substance type: Marijuana Alcohol Use?: No Pt feels they are or have been: No Immunizations Up To Date Tetanus Booster (TDap): Unknown PED Vaccines UTD: No First/Initial COVID19 Vaccinat: 01/03 Second COVID19 Vaccination Pierre: 02/03 Third COVID19 Vaccination Date: 01/03 Seasonal Allergies Seasonal Allergies: No Past Medical History Surgery/Hospitalization HX: TYPE 1 DM, HTN, GASTROPARESIS Surgeries: No Respiratory: Yes Pneumonia Currently Using CPAP: No Currently Using BIPAP: No Cardiac: Yes (CARDIOMYOPATHY DX 2017) Cardiomyopathy, Hypertension Neurological: No Reproductive Disorders: No Sexually Transmitted Disease: No HIV/AIDS: No Genitourinary: No Gastrointestinal: Yes (GASTROPARESIS) Musculoskeletal: No Endocrine: Yes (DX AGE 11, [place] 2001; MULTIPLE ADMITS FOR DKA) Diabetes, Insulin dep Cancer: No Did You Recieve Any Treatments: No Psychosocial: Yes (Frequent marijuana use) Integumentary: Yes (WOUNDS TO LOWER LEGS-- REQUIRED WOUND CARE CLINIC TREATMENT) Blood Disorders: No Adverse Reaction/Blood Tranf: No Family Medical History Cardiovascular disease 19 FATHER Hypertension 19 FATHER No Pertinent Family Hx Physical Exam Vital Signs Vital Signs - First Documented 02/14/22 09:39 Temp 35.9 Pulse 77 Resp 14 B/P (MAP) 176/102 (126) Pulse Ox 100 O2 Delivery Room Air Capillary Refill : Less Than 3 Seconds Height/Weight/BMI Height: 5'11.00" Weight: 126lbs. 0.0oz. 57.483676cy; 17.00 BMI Method:Stated General Appearance: moderate distress, thin HEENT: PERRL/EOMI, pharynx normal Neck: full range of motion, supple, normal inspection Respiratory: chest non-tender, lungs clear, normal breath sounds, no respiratory distress, no accessory muscle use Cardiovascular: normal peripheral pulses, regular rate, rhythm, no edema Peripheral Pulses: 2+ Radial Pulses (R), 2+ Radial Pulses (L) Gastrointestinal: soft, no organomegaly, tenderness Extremities: normal range of motion, non-tender, normal inspection, no pedal edema, normal capillary refill Neurologic/Psychiatric: alert, oriented x 3, depressed affect Skin: normal color, warm/dry Progress/Results/Core Measures Results/Orders Lab Results Laboratory Tests Test 02/14/22 10:19 02/14/22 10:31 02/14/22 11:15 Range/Units White Blood Count 12.6 H 4.3-11.0 10^3/uL Red Blood Count 4.96 4.30-5.52 10^6/uL Hemoglobin 13.1 L 13.3-17.7 g/dL Hematocrit 39 L 40-54 % Mean Corpuscular Volume 79 L 80-99 fL Mean Corpuscular Hemoglobin 26 25-34 pg Mean Corpuscular Hemoglobin Concent 34 32-36 g/dL Red Cell Distribution Width 14.6 H 10.0-14.5 % Platelet Count 255 130-400 10^3/uL Mean Platelet Volume 8.8 L 9.0-12.2 fL Immature Granulocyte % (Auto) 0 % Neutrophils (%) (Auto) 84 H 42-75 % Lymphocytes (%) (Auto) 11 L 12-44 % Monocytes (%) (Auto) 4 0-12 % Eosinophils (%) (Auto) 0 0-10 % Basophils (%) (Auto) 0 0-10 % Neutrophils # (Auto) 10.6 H 1.8-7.8 10^3/uL Lymphocytes # (Auto) 1.3 1.0-4.0 10^3/uL Monocytes # (Auto) 0.5 0.0-1.0 10^3/uL Eosinophils # (Auto) 0.1 0.0-0.3 10^3/uL Basophils # (Auto) 0.0 0.0-0.1 10^3/uL Immature Granulocyte # (Auto) 0.0 0.0-0.1 10^3/uL Sodium Level 138 135-145 MMOL/L Potassium Level 3.9 3.6-5.0 MMOL/L Chloride Level 102 98-107 MMOL/L Carbon Dioxide Level 21 21-32 MMOL/L Anion Gap 15 H 5-14 MMOL/L Blood Urea Nitrogen 10 7-18 MG/DL Creatinine 0.81 0.60-1.30 MG/DL Estimat Glomerular Filtration Rate 120 BUN/Creatinine Ratio 12 Glucose Level 257 H 70-105 MG/DL Calcium Level 9.2 8.5-10.1 MG/DL Corrected Calcium 9.0 8.5-10.1 MG/DL Total Bilirubin 0.8 0.1-1.0 MG/DL Aspartate Amino Transf (AST/SGOT) 16 5-34 U/L Alanine Aminotransferase (ALT/SGPT) 12 0-55 U/L Alkaline Phosphatase 104 40-136 U/L Total Protein 7.6 6.4-8.2 GM/DL Albumin 4.2 3.2-4.5 GM/DL Beta-Hydroxybutyrate (Chem panel) 0.85 H 0.00-0.27 MMOL/L Serum Alcohol < 10 <10 MG/DL Glucometer 259 H 70-110 MG/DL Urine Color YELLOW Urine Clarity CLEAR Urine pH 8.0 5-9 Urine Specific Sargeant 1.015 L 1.016-1.022 Urine Protein 1+ H NEGATIVE Urine Glucose (UA) 3+ H NEGATIVE Urine Ketones 1+ H NEGATIVE Urine Nitrite NEGATIVE NEGATIVE Urine Bilirubin NEGATIVE NEGATIVE Urine Urobilinogen 0.2 < = 1.0 MG/DL Urine Leukocyte Esterase NEGATIVE NEGATIVE Urine RBC (Auto) 1+ H NEGATIVE Urine RBC RARE /HPF Urine WBC RARE /HPF Urine Squamous Epithelial Cells RARE /HPF Urine Crystals NONE /LPF Urine Bacteria NEGATIVE /HPF Urine Casts NONE /LPF Urine Mucus NEGATIVE /LPF Urine Culture Indicated NO Urine Opiates Screen NEGATIVE NEGATIVE Urine Oxycodone Screen NEGATIVE NEGATIVE Urine Methadone Screen NEGATIVE NEGATIVE Urine Propoxyphene Screen NEGATIVE NEGATIVE Urine Barbiturates Screen NEGATIVE NEGATIVE Ur Tricyclic Antidepressants Screen NEGATIVE NEGATIVE Urine Phencyclidine Screen NEGATIVE NEGATIVE Urine Amphetamines Screen NEGATIVE NEGATIVE Urine Methamphetamines Screen NEGATIVE NEGATIVE Urine Benzodiazepines Screen NEGATIVE NEGATIVE Urine Cocaine Screen NEGATIVE NEGATIVE Urine Cannabinoids Screen POSITIVE H NEGATIVE My Orders Orders - DAYDAY,WILNER J Accucheck Stat ONCE (02/14/22 09:33) Cbc With Automated Diff (02/14/22 09:33) Comprehensive Metabolic Panel (02/14/22 09:33) Beta Hydroxybutyrate (02/14/22 09:33) Ua Culture If Indicated (02/14/22 09:33) Ed Iv/Invasive Line Start (02/14/22 09:33) Ns Iv 1000 Ml (Sodium Chloride 0.9%) (02/14/22 09:45) Ondansetron Injection (Zofran Injectio (02/14/22 10:45) Ondansetron Injection (Zofran Injectio (02/14/22 10:31) Pantoprazole Injection (Protonix Injecti (02/14/22 10:45) Drug Screen Stat (Urine) (02/14/22 10:38) Alcohol (02/14/22 10:38) Promethazine Injection (Phenergan Injec (02/14/22 11:00) Diphenhydramine Injection (Benadryl Inje (02/14/22 11:00) Ed Admission (Communication) (02/14/22 12:48) Medications Given in ED Current Medications Medications Dose Ordered Sig/Luis Route Start Time Stop Time Status Last Admin Dose Admin Diphenhydramine HCl 25 mg ONCE ONCE IVP 02/14/22 11:00 02/14/22 11:03 DC 02/14/22 11:09 25 MG Ondansetron HCl 8 mg ONCE ONCE IVP 02/14/22 10:45 02/14/22 10:46 DC 02/14/22 10:35 8 MG Pantoprazole 40 mg ONCE ONCE IV 02/14/22 10:45 02/14/22 10:46 DC 02/14/22 10:45 40 MG Promethazine HCl 25 mg ONCE ONCE IVP 02/14/22 11:00 02/14/22 11:03 DC 02/14/22 11:13 25 MG Vital Signs/I&O 02/14/22 09:39 Temp 35.9 Pulse 77 Resp 14 B/P (MAP) 176/102 (126) Pulse Ox 100 O2 Delivery Room Air Blood Pressure Mean: 126 FSBG Bedside Testing Finger Stick Blood Glucose: 259 Blood Glucose Action Taken: RN NOTIFIED Progress Progress Note : Time: 10:39 Progress Note 2 L of fluids, pantoprazole, 8 of Zofran. He did not anything for pain right now. He has a blood sugar of 259 on presentation. Suspect strongly he is in DKA and will look for any underlying stimulating syndromes. Departure Communication (Admissions) Time/Spoke to Admitting Phy: 12:[address] Knight and she agrees to admit the patient to the ICU on insulin drip for DKA Impression Primary Impression: DKA (diabetic ketoacidoses) Disposition: ADMITTED INPATIENT Condition: Stable Admissions Decision to Admit Reason: Admit from ER (General) Decision to Admit/Date: February 14, 2022 Time/Decision to Admit Time: 12:26 Departure-Patient Inst. Referrals: [facility] (PCP/Family) Primary Care Physician WILNER NAYLOR February 14, 2022 10:38
[2022-02-14 10:43] LABS: ALBUMIN 4.2 GM/DL (3.2-4.5); BILIRUBIN,TOTAL 0.8 MG/DL (0.1-1.0); CALCIUM 9.2 MG/DL (8.5-10.1); CREATININE SERUM 0.81 MG/DL (0.60-1.30); POTASSIUM 3.9 MMOL/L (3.6-5.0); TOTAL PROTEIN 7.6 GM/DL (6.4-8.2)
[2022-02-14] MEDS ORDERED: PANTOPRAZOLE 40 MG (PROTONIX) VIAL IV ONE (10:45)
[2022-02-14] MEDS ORDERED: ONDANSETRON 4 MG/2 ML (SDV) Z0FRAN IVP ONE (10:45)
[2022-02-14] MEDS ORDERED: PROMETHAZINE INJ 25 MG/ML (PHENERGAN) AMP IVP ONE (11:00)
[2022-02-14] MEDS ORDERED: diphenhydrAMINE 50 MG/ML INJ (BENADRYL) IVP ONE (11:00)
[2022-02-14 11:31] LABS: BILIRUBIN,URINE NEGATIVE (NEGATIVE); CLARITY,URINE CLEAR; COLOR,URINE YELLOW; GLUCOSE, URINE (UA) 3+ (NEGATIVE); KETONES,URINE 1+ (NEGATIVE); LEUKOCYTE ESTERASE ,URINE NEGATIVE (NEGATIVE); NITRITE,URINE NEGATIVE (NEGATIVE); PROTEIN,URINE 1+ (NEGATIVE)
[2022-02-14 11:41] LABS: AMPHETAMINE SCREEN, URINE NEGATIVE (NEGATIVE); BENZODIAZEPINES SCREEN URINE NEGATIVE (NEGATIVE); COCAINE SCREEN URINE NEGATIVE (NEGATIVE)
[2022-02-14 11:42] LABS: BARBITURATE SCREEN URINE NEGATIVE (NEGATIVE); CANNABINOID SCREEN, URINE POSITIVE (NEGATIVE); METHADONE STAT NEGATIVE (NEGATIVE); OPIATE SCREEN URINE NEGATIVE (NEGATIVE); OXYCODONE STAT NEGATIVE (NEGATIVE); PROPOXYPHENE STAT NEGATIVE (NEGATIVE); TRICYCLIC ANTIDEPRESSANTS SCRE NEGATIVE (NEGATIVE)
[2022-02-14 12:02] LABS: BACTERIA,URINE NEGATIVE /HPF; RBC,URINE RARE /HPF; SQUAMOUS EPITHELIAL CELL,UR RARE /HPF; WBC,URINE RARE /HPF
--- NOTE | 2022-02-14 12:41 | History & Physical-Hospitalist ---
History of Present Illness HPI/Chief Complaint Chief complaint: DKA History of present illness: This is a 31-year-old white male known to me from multiple DKA hospital stays who presents with nausea vomiting found to have evidence of DKA so he was admitted placed on protocol in the ICU. Source: patient Exam Limitations: clinical condition Date Seen 02/14/22 Time Seen by a Provider: 13:00 Attending Physician PCP [facility] [place] [place] Referring Physician Date of Admission Home Medications & Allergies Home Medications Reviewed patient Home Medication Reconciliation performed by pharmacy medication reconciliations installation and repair technician and/or nursing. Patients Allergies have been reviewed. Allergies Allergies Coded Allergies Penicillins (Verified Allergy, Unknown, 05/23/06) Past Mcwccgi-Asxguq-Ryqlnw Hx Patient Social History Marrital Status: single Employed/Student: unemployed Tobacco Use?: No Smoking Status: Current Everyday Smoker Use of E-Cig and/or Vaping dev: Yes Substance use?: Yes Substance type: Marijuana Alcohol Use?: No Pt feels they are or have been: No Immunizations Up To Date Date of Influenza Vaccine: Jun 16, 2021 First/Initial COVID19 Vaccinat: 01/03 Second COVID19 Vaccination Pierre: 02/03 Tetanus Booster (TDap): Unknown Hepatitis A: No Hepatitis B: No PED Vaccines UTD: No Date of Pneumonia Vaccine: Jul 16, 2016 Seasonal Allergies Seasonal Allergies: No Current Status Advance Directives: No Primary Language: Yi Preferred Spoken Language: Yi Past Medical History Pneumonia Currently Using CPAP: No Currently Using BIPAP: No Cardiomyopathy, Hypertension Sexually Transmitted Disease: No HIV/AIDS: No Diabetes, Insulin dep Did You Recieve Any Treatments: No Blood Disorders: No Adverse Reaction/Blood Tranf: No PMHx: Type I Diabetes Anxiety Diabetic Retinopathy Thyrotoxicosis Pneumonia Cardiomyopathy Gastroparesis Family Medical History Cardiovascular disease 19 FATHER Hypertension 19 FATHER No Pertinent Family Hx Review of Systems Constitutional: see HPI, malaise, weakness EENTM: no symptoms reported Respiratory: no symptoms reported Cardiovascular: no symptoms reported Gastrointestinal: nausea, vomiting Genitourinary: no symptoms reported Musculoskeletal: no symptoms reported Skin: no symptoms reported Psychiatric/Neurological: No Symptoms Reported All Other Systems Reviewed Negative Unless Noted: Yes Physical Exam Physical Exam Vital Signs Vital Signs - First Documented 02/14/22 09:39 Temp 35.9 Pulse 77 Resp 14 B/P (MAP) 176/102 (126) Pulse Ox 100 O2 Delivery Room Air Capillary Refill : Less Than 3 Seconds Height, Weight, BMI Height: 5'11.00" Weight: 126lbs. 0.0oz. 57.163923fv; 17.00 BMI Method:Stated General Appearance: Anxious, Chronically ill, Mild Distress Respiratory: Chest Non Tender, Lungs Clear, Normal Breath Sounds, No Accessory Muscle Use, No Respiratory Distress Cardiovascular: Regular Rate, Rhythm, No Edema, No Gallop, No JVD, No Murmur, Normal Peripheral Pulses Neurologic/Psychiatric: Alert, Oriented x3, No Motor/Sensory Deficits, Normal Mood/Affect Results Results/Procedures Labs Laboratory Tests 02/14/22 10:19 02/14/22 14:00 02/14/22 15:52 02/14/22 18:00 Patient resulted labs reviewed. Assessment/Plan Admission Diagnosis Assessment: DKA Cardiomyopathy Hypertension Chronic kidney disease Plan: DKA protocol Admission Status: Inpatient Order (span 2 midnights) Reason for Inpatient Admission: DKA Diagnosis/Problems Diagnosis/Problems (1) Diabetic ketoacidosis Status: Resolved Resolution Date/Time: 01/14/21 @ 12:30 NORAH JOSÉ DO February 14, 2022 12:41
--- NOTE | 2022-02-14 13:42 | Tele-ICU Progress Note ---
Subjective Date Seen by a Provider: February 14, 2022 Time Seen by a Provider: 13:20 Subjective/Events-last exam This virtual visit was conducted using real time audio/video. Thank you for asking us to see this patient for DKA. Recent events: Nause/vomiting. PMH: DM1 w retinopathy, gastroparesis, multiple DKA episodes. HTN, ca rdiomyopathy. SH: smoking historyz: Cannabis, no tobacco FH: Non-contributory. ROS: las in HPI. PE: Thin, pale. VSS. O2 sat 100% on RA. HEENT: No obvious masses, adenopathy or JVD. Chest: clear to auscultation. CV: RRR S1 S2 No murmur or added sounds. Abd: Non-tender. Bowel sounds Y. : Unremarkable. Carrillo N. TEXT TRANSCRIBER/psychiatric: Grossly intact. No obvious focal findings. Extremities: edema. Capillary refill < 3 seconds. Skin: unremarkable. Results: Elevated WCC 12.6, BG 257, AG 15. Decreased Hb 13.1. BG: . CXR: . Available chart/ vitals / labs / images reviewed. Video assessment done using teleICU camera, rest of exam as per RN. A/P: Critical Care: critically ill patient. Cont. IVF, IV insulin. Replace K now as Serum K is 3.9. Discussed with RN DESIRE. Asked RN to reach out to eICU if any questions or concerns later. Time spent with patient/coordination of care with other health professionals (mins): 22 Sepsis Event Evaluation Height, Weight, BMI Height: 5'11.00" Weight: 126lbs. 0.0oz. 57.833026jb; 17.00 BMI Method:Stated Exam Exam Patient acknowledged, consented, and participated in this virtual visit which was conducted using real time audio/video Vital Signs Date Time Temp Pulse Resp B/P (MAP) Pulse Ox O2 Delivery O2 Flow Rate FiO2 02/14/22 09:39 35.9 77 14 176/102 (126) 100 Room Air Height & Weight Height: 5'11.00" Weight: 126lbs. 0.0oz. 57.589389tx; 17.00 BMI Method:Stated General Appearance: Thin Capillary Refill: Less Than 3 Seconds Peripheral Pulses: 1+ Dorsalis Pedis (R), 1+ Left Dors-Pedis (L) Results Lab Laboratory Tests 02/14/22 10:19 Assessment/Plan Assessment/Plan See free text Critical Care: Critically Ill Patient CHAUNCEY LONGORIA MD February 14, 2022 13:42
[2022-02-14] MEDS ORDERED: ONDANSETRON 4 MG (ZOFRAN) ORAL DISSOLVE TAB PO PRN (13:45)
[2022-02-14] MEDS ORDERED: ANTACID SUSP 30 ML UDC (MYLANTA) PO PRN (13:45)
[2022-02-14] MEDS ORDERED: ACETAMINOPHEN 325 MG TABLET PO PRN (13:45)
[2022-02-14] MEDS ORDERED: POTASSIUM CL 10MEQ/50ML IVPB 50 ML IV SCH (13:45)
[2022-02-14] MEDS ORDERED: CALCIUM CARBONATE 500 MG (TUMS) TAB.CHEW PO PRN (13:45)
[2022-02-14] MEDS ORDERED: diphenhydrAMINE 25 MG TAB (BENADRYL) PO PRN (13:45)
[2022-02-14] MEDS ORDERED: MILK OF MAGNESIA 400 MG/5 ML 30 ML UDC PO PRN (13:45)
[2022-02-14] MEDS ORDERED: diphenhydrAMINE 50 MG/ML INJ (BENADRYL) IVP PRN (13:45)
[2022-02-14] MEDS ORDERED: BISACODYL 10 MG SUPP (DULCOLAX) PR PRN (13:45)
[2022-02-14] MEDS ORDERED: morphine INJ 4 MG/ML 1 ML (VIAL/SYRINGE) IV PRN (13:45)
[2022-02-14] MEDS ORDERED: MELATONIN 3 MG TABLET PO PRN (13:45)
[2022-02-14] MEDS ORDERED: polyethylene glycoL POWDER 17 GM (MIRALAX) PACK PO PRN (13:45)
[2022-02-14] MEDS ORDERED: LACTULOSE SYRUP 10GM/15ML (ENULOSE) 30ML UDC PO PRN (13:45)
[2022-02-14] MEDS ORDERED: ENOXAPARIN 40 MG/0.4 ML (LOVENOX) SYR SC SCH (13:45)
[2022-02-14] MEDS ORDERED: ONDANSETRON 4 MG/2 ML (SDV) Z0FRAN IV PRN (13:45)
[2022-02-14] MEDS ORDERED: PROMETHAZINE INJ 25 MG/ML (PHENERGAN) AMP IM PRN (13:45)
[2022-02-14] MEDS ORDERED: SCOPOLAMINE 1.5 MG (TRANSDERM-SCOP) PATCH TD NR (14:00)
[2022-02-14 14:19] LABS: POTASSIUM 3.7 MMOL/L (3.6-5.0)
[2022-02-14 14:20] LABS: CALCIUM 8.6 MG/DL (8.5-10.1)
[2022-02-14 14:24] LABS: CREATININE SERUM 0.79 MG/DL (0.60-1.30)
[2022-02-14] MEDS: 1/2 NS IV SOLUTION 1,000 ML IV SCH ×3 (14:26→23:49)
[2022-02-14] MEDS: ENOXAPARIN INJECTION 30 MG/0.3 ML SYR SC SCH (14:27)
[2022-02-14] MEDS: POTASSIUM CL 10MEQ/50ML IVPB 50 ML IV SCH ×4 (14:27→20:55)
[2022-02-14] MEDS: D5 1/2 NS 1000 ML IV SOLUTION 1,000 ML IV SCH ×2 (15:38→19:42)
[2022-02-14 16:12] LABS: POTASSIUM 3.4 MMOL/L (3.6-5.0)
[2022-02-14 16:13] LABS: CALCIUM 8.1 MG/DL (8.5-10.1)
[2022-02-14 16:17] LABS: CREATININE SERUM 0.72 MG/DL (0.60-1.30)
[2022-02-14] MEDS: METOCLOPRAMIDE INJ 10 MG/2 ML (REGLAN) IVP SCH (18:01)
[2022-02-14 18:20] LABS: POTASSIUM 3.3 MMOL/L (3.6-5.0)
[2022-02-14 18:22] LABS: CALCIUM 8.4 MG/DL (8.5-10.1)
[2022-02-14 18:26] LABS: CREATININE SERUM 0.71 MG/DL (0.60-1.30)
[2022-02-14] MEDS: SENNOSIDES 8.6 MG (SENOKOT) TAB PO SCH (20:00)
[2022-02-14] MEDS: DOCUSATE SODIUM 100 MG (COLACE) CAP PO SCH (20:00)
[2022-02-14 22:15] LABS: POTASSIUM 3.5 MMOL/L (3.6-5.0)
[2022-02-14 22:16] LABS: CALCIUM 7.9 MG/DL (8.5-10.1)
[2022-02-14 22:21] LABS: CREATININE SERUM 0.77 MG/DL (0.60-1.30)
[2022-02-15] VITALS (21 sets, daily range): BP systolic 103–152; BP diastolic 67–100
[2022-02-15] MEDS: METOCLOPRAMIDE INJ 10 MG/2 ML (REGLAN) IVP SCH ×5 (00:02→23:26)
[2022-02-15] MEDS: POTASSIUM CL 10MEQ/50ML IVPB 50 ML IV SCH ×2 (00:03→00:06)
[2022-02-15] MEDS: D5 1/2 NS 1000 ML IV SOLUTION 1,000 ML IV SCH (00:03)
[2022-02-15 02:10] LABS: BASOPHILS % (AUTO) 0 % (0-10); EOSINOPHILS % (AUTO) 0 % (0-10); HEMATOCRIT 33 % (40-54); LYMPHOCYTES # (AUTO) 2.5 10^3/uL (1.0-4.0); LYMPHOCYTES % (AUTO) 21 % (12-44); MEAN CORPUSCULAR HEMOGLOBIN 26 pg (25-34); MEAN CORPUSCULAR HGB CONC 33 g/dL (32-36); MEAN CORPUSCULAR VOLUME 79 fL (80-99); MONOCYTES # (AUTO) 0.8 10^3/uL (0.0-1.0); MONOCYTES % (AUTO) 7 % (0-12); NEUTROPHILS # (AUTO) 8.5 10^3/uL (1.8-7.8); NEUTROPHILS % (AUTO) 71 % (42-75); PLATELET COUNT 239 10^3/uL (130-400); WHITE BLOOD COUNT 11.8 10^3/uL (4.3-11.0)
[2022-02-15] MEDS: 1/2 NS IV SOLUTION 1,000 ML IV SCH (02:11)
[2022-02-15 02:21] LABS: ALBUMIN 3.1 GM/DL (3.2-4.5); POTASSIUM 3.7 MMOL/L (3.6-5.0)
[2022-02-15 02:22] LABS: CALCIUM 7.8 MG/DL (8.5-10.1)
[2022-02-15 02:24] LABS: TOTAL PROTEIN 5.2 GM/DL (6.4-8.2)
[2022-02-15 02:26] LABS: BILIRUBIN,TOTAL 0.6 MG/DL (0.1-1.0)
[2022-02-15 02:27] LABS: CREATININE SERUM 0.76 MG/DL (0.60-1.30); PHOSPHORUS 2.8 MG/DL (2.3-4.7)
[2022-02-15 02:30] LABS: MAGNESIUM 1.7 MG/DL (1.6-2.4)
[2022-02-15] MEDS: MAGNESIUM 1 GM/100 ML IVPB 100 ML IV SCH ×2 (05:16→06:17)
[2022-02-15] MEDS: inSUlin ASPART (NovoLOG) 1 UNIT/0.01 ML (CHARGE PER UNIT) SC SCH ×4 (05:20→20:37)
--- NOTE | 2022-02-15 05:26 | Progress Note - Hospitalist ---
Subjective HPI/CC On Admission Date Seen by Provider: February 15, 2022 Time Seen by Provider: 09:30 Chief complaint: DKA History of present illness: This is a 31-year-old white male known to me from multiple DKA hospital stays who presents with nausea vomiting found to have evidence of DKA so he was admitted placed on protocol in the ICU. Subjective/Events-last exam Pt is doing a lot better No more N/V Transition off insulin drip and we will check labs this afternoon If all is well I will transfer pt to 4th floor Review of Systems General: Fatigue, Malaise Objective Exam Vital Signs Vital Signs Date Time Temp Pulse Resp B/P (MAP) Pulse Ox O2 Delivery O2 Flow Rate FiO2 02/16/22 03:46 36.1 97 18 153/94 (113) 98 Room Air Capillary Refill : Less Than 3 Seconds General Appearance: No Apparent Distress, WD/WN, Chronically ill, Thin Respiratory: Lungs Clear, Normal Breath Sounds Cardiovascular: Regular Rate, Rhythm Neurologic/Psychiatric: Alert, Oriented x3, Depressed Affect Results/Procedures Lab Laboratory Tests 02/15/22 13:51 Patient resulted labs reviewed. Assessment/Plan Assessment and Plan Assess & Plan/Chief Complaint Assessment: DKA Cardiomyopathy Hypertension Chronic kidney disease Plan: DKA protocol 02/15/22: Transfer to 4th Critical Care Critically Ill Patient Diagnosis/Problems Diagnosis/Problems (1) Diabetic ketoacidosis Status: Resolved Resolution Date/Time: 01/14/21 @ 12:30 NORAH JOSÉ DO February 15, 2022 05:26
[2022-02-15] MEDS ORDERED: POTASSIUM CL 10MEQ/50ML IVPB 50 ML IV SCH (06:00)
[2022-02-15] MEDS ORDERED: KCL 20 MEQ TAB (K-DUR) PO SCH (06:00)
[2022-02-15] MEDS ORDERED: MAGNESIUM 1 GM/100 ML IVPB 100 ML IV SCH (06:00)
--- NOTE | 2022-02-15 07:01 | Diagnostic Imaging Report ---
INDICATION: Diabetic ketoacidosis. Comparison is made with prior examination from 10/22/2021. FINDINGS: The heart size, mediastinal configuration, and pulmonary vascularity are within normal limits. There is no pleural effusion, pneumothorax, or pneumonia. The osseous structures are unremarkable. IMPRESSION: No acute cardiopulmonary abnormality. Dictated by: Dictated on workstation # [id number]
[2022-02-15] MEDS: DOCUSATE SODIUM 100 MG (COLACE) CAP PO SCH ×2 (07:20→20:08)
[2022-02-15] MEDS: SENNOSIDES 8.6 MG (SENOKOT) TAB PO SCH ×2 (07:20→20:08)
[2022-02-15] MEDS: PANTOPRAZOLE 40 MG (PROTONIX) VIAL IV SCH (08:26)
--- NOTE | 2022-02-15 09:37 | Tele-ICU Progress Note ---
Subjective Date Seen by a Provider: February 15, 2022 Time Seen by a Provider: 08:30 Subjective/Events-last exam This virtual visit was conducted using real time audio/video. Thank you for asking us to see this patient for DKA. Recent events: AG closed. PMH: DM1 w retinopathy, gastroparesis, multiple DKA episodes. HTN, cardiom yopathy. PE: Thin, pale. VSS. O2 sat 99% on RA. HEENT: No obvious masses, adenopathy or JVD. Chest: clear to auscultation. CV: RRR S1 S2 No murmur or added sounds. Abd: Non-tender. Bowel sounds Y. : Unremarkable. Carrillo N. ALLERGY PHYSICIAN/psychiatric: Grossly intact. No obvious focal findings. Extremities: edema. Capillary refill < 3 seconds. Skin: unremarkable. Results: Elevated WCC 11.8, Na 134, BG 89, AG 15. Decreased Hb 11.0. Available chart/ vitals / labs / images reviewed. Video assessment done using teleICU camera, rest of exam as per RN. A/P: Critical Care: critically ill patient. Cont. IVF, PPI, reglan, Heydi.,Levemir and SSI. Possible transfer later if stable and hospitalist agrees. Discussed with RN DESIRE. Asked RN to reach out to eICU if any questions or concerns later. Time spent with patient/coordination of care with other health professionals (mins): 15 Sepsis Event Evaluation Height, Weight, BMI Height: 5'11.00" Weight: 126lbs. 0.0oz. 57.100318dr; 17.90 BMI Method:Stated Exam Exam Patient acknowledged, consented, and participated in this virtual visit which was conducted using real time audio/video Vital Signs Date Time Temp Pulse Resp B/P (MAP) Pulse Ox O2 Delivery O2 Flow Rate FiO2 02/15/22 09:00 98 16 152/97 (115) 99 Room Air 02/15/22 08:00 88 17 112/72 (85) 99 Room Air 02/15/22 08:00 100 Room Air 02/15/22 07:28 36.3 02/15/22 07:00 88 02/15/22 07:00 89 14 129/80 (96) 99 Room Air 02/15/22 06:00 90 15 134/95 (108) 99 Room Air 02/15/22 05:00 92 16 122/78 (93) 99 Room Air 02/15/22 04:07 100 Room Air 02/15/22 04:00 36.3 02/15/22 04:00 86 20 107/77 (87) 100 Room Air 02/15/22 03:00 76 15 113/76 (88) 100 Room Air 02/15/22 02:00 81 20 107/74 (85) 99 Room Air 02/15/22 01:00 84 20 103/67 (79) 99 Room Air 02/15/22 01:00 84 02/15/22 00:00 85 18 104/69 (81) 99 Room Air 02/14/22 23:59 100 Room Air 02/14/22 23:00 88 15 118/80 (93) 99 Room Air 02/14/22 22:45 36.3 02/14/22 22:00 94 17 103/65 (78) 98 Room Air 02/14/22 21:00 103 20 144/98 (113) 96 Room Air 02/14/22 20:01 37.2 02/14/22 20:00 113 25 151/101 (118) 100 Room Air 02/14/22 20:00 100 Room Air 02/14/22 19:00 109 18 151/93 (112) 100 Room Air 02/14/22 19:00 109 02/14/22 18:00 107 14 153/89 (110) 100 Room Air 02/14/22 17:00 104 19 157/102 (120) 100 Room Air 02/14/22 16:00 98 19 151/95 (113) 99 Room Air 02/14/22 15:57 36.9 02/14/22 15:00 103 23 165/105 (125) 100 Room Air 02/14/22 14:00 94 25 162/107 (125) 100 Room Air 02/14/22 14:00 100 Room Air 02/14/22 13:40 36.2 100 18 164/108 (126) 100 Room Air 02/14/22 13:38 102 02/14/22 13:31 102 20 174/97 98 Room Air 02/14/22 09:39 35.9 77 14 176/102 (126) 100 Room Air I & O 02/15/22 07:00 Intake Total 5590 ml Output Total 2875 ml Balance 2715 ml Height & Weight Height: 5'11.00" Weight: 126lbs. 0.0oz. 57.616524zk; 17.90 BMI Method:Stated General Appearance: Anxious, Chronically ill, Mild Distress Respiratory: Chest Non Tender, Lungs Clear, Normal Breath Sounds, No Accessory Muscle Use, No Respiratory Distress Cardiovascular: Regular Rate, Rhythm, No Edema, No Gallop, No JVD, No Murmur, Normal Peripheral Pulses Capillary Refill: Less Than 3 Seconds Peripheral Pulses: 1+ Dorsalis Pedis (R), 1+ Left Dors-Pedis (L); 2+ Radial Pulses (R), 2+ Radial Pulses (L) Gastrointestinal: soft, no organomegaly, tenderness Neurologic/Psychiatric: Alert, Oriented x3, No Motor/Sensory Deficits, Normal Mood/Affect Results Lab Laboratory Tests 02/14/22 10:19 02/14/22 14:00 02/14/22 15:52 02/14/22 18:00 02/14/22 22:00 02/15/22 02:00 Assessment/Plan Assessment/Plan See free text. Critical Care: Critically Ill Patient CHAUNCEY LONGORIA MD February 15, 2022 09:37
[2022-02-15 14:10] LABS: POTASSIUM 4.1 MMOL/L (3.6-5.0)
[2022-02-15 14:11] LABS: CALCIUM 8.4 MG/DL (8.5-10.1)
[2022-02-15 14:15] LABS: CREATININE SERUM 0.85 MG/DL (0.60-1.30)
[2022-02-15] MEDS: ENOXAPARIN INJECTION 30 MG/0.3 ML SYR SC SCH (14:55)
[2022-02-16 03:46] VITALS: BP 153/94
--- NOTE | 2022-02-16 05:49 | Progress Note - Hospitalist ---
Subjective HPI/CC On Admission Date Seen by Provider: February 16, 2022 Time Seen by Provider: 09:30 Chief complaint: DKA History of present illness: This is a 31-year-old white male known to me from multiple DKA hospital stays who presents with nausea vomiting found to have evidence of DKA so he was admitted placed on protocol in the ICU. Objective Exam Vital Signs Vital Signs Date Time Temp Pulse Resp B/P (MAP) Pulse Ox O2 Delivery O2 Flow Rate FiO2 02/16/22 14:25 02/16/22 11:49 37.2 94 19 96 Room Air Capillary Refill : Less Than 3 Seconds Results/Procedures Lab Patient resulted labs reviewed. Assessment/Plan Assessment and Plan Assess & Plan/Chief Complaint Assessment: DKA Cardiomyopathy Hypertension Chronic kidney disease Plan: DKA protocol 02/15/22: Transfer to 4th Critical Care Critically Ill Patient Diagnosis/Problems Diagnosis/Problems (1) Diabetic ketoacidosis Status: Resolved Resolution Date/Time: 01/14/21 @ 12:30 NORAH JOSÉ DO February 16, 2022 05:49
[2022-02-16 05:52] LABS: BASOPHILS % (AUTO) 0 % (0-10); EOSINOPHILS # (AUTO) 0.1 10^3/uL (0.0-0.3); EOSINOPHILS % (AUTO) 0 % (0-10); HEMATOCRIT 37 % (40-54); HEMOGLOBIN 12.2 g/dL (13.3-17.7); LYMPHOCYTES % (AUTO) 17 % (12-44); MEAN CORPUSCULAR HEMOGLOBIN 26 pg (25-34); MEAN CORPUSCULAR HGB CONC 33 g/dL (32-36); MEAN CORPUSCULAR VOLUME 80 fL (80-99); MEAN PLATELET VOLUME 9.2 fL (9.0-12.2); MONOCYTES # (AUTO) 0.7 10^3/uL (0.0-1.0); MONOCYTES % (AUTO) 6 % (0-12); NEUTROPHILS # (AUTO) 8.7 10^3/uL (1.8-7.8); NEUTROPHILS % (AUTO) 76 % (42-75); PLATELET COUNT 250 10^3/uL (130-400); WHITE BLOOD COUNT 11.5 10^3/uL (4.3-11.0)
[2022-02-16 06:09] LABS: ALBUMIN 3.4 GM/DL (3.2-4.5)
[2022-02-16 06:10] LABS: POTASSIUM 4.5 MMOL/L (3.6-5.0)
[2022-02-16 06:11] LABS: CALCIUM 8.6 MG/DL (8.5-10.1)
[2022-02-16 06:12] LABS: TOTAL PROTEIN 6.2 GM/DL (6.4-8.2)
[2022-02-16 06:14] LABS: BILIRUBIN,TOTAL 0.5 MG/DL (0.1-1.0)
[2022-02-16 06:16] LABS: CREATININE SERUM 0.79 MG/DL (0.60-1.30)
[2022-02-16] MEDS: inSUlin ASPART (NovoLOG) 1 UNIT/0.01 ML (CHARGE PER UNIT) SC SCH ×2 (06:17→11:36)
[2022-02-16 06:18] LABS: MAGNESIUM 2.1 MG/DL (1.6-2.4)
[2022-02-16] MEDS: METOCLOPRAMIDE INJ 10 MG/2 ML (REGLAN) IVP SCH ×2 (06:18→11:36)
[2022-02-16 08:19] VITALS: BP 148/72
[2022-02-16] MEDS: PANTOPRAZOLE 40 MG (PROTONIX) VIAL IV SCH (09:24)
[2022-02-16] MEDS: DOCUSATE SODIUM 100 MG (COLACE) CAP PO SCH (09:26)
[2022-02-16] MEDS ORDERED: LISI20TA26 PO (09:26)
[2022-02-16] MEDS: SENNOSIDES 8.6 MG (SENOKOT) TAB PO SCH (09:26)
--- NOTE | 2022-02-16 10:13 | Discharge Summary ---
Discharge Summary Hospital Course Was the Problem List Reviewed?: Yes Problems/Dx: (1) Diabetic ketoacidosis Status: Resolved Hospital Course Date of Admission: February 14, 2022 at 12:48 Admission Diagnosis : Family Physician/Provider: [facility] Date of Discharge: 02/16/22 Discharge Diagnosis: DKA Hospital Course: Pt had an uneventful hospital course for 3 days after he was admitted for DKA. He underwent insulin drip and aggressive IV fluid resuscitation. Ultimately N/V resolved. He was able to eat all of his meals. Blood sugars were adequate and he was discharged in improved condition. Labs and Pending Lab Test: Laboratory Tests 02/15/22 13:51: Sodium Level 136, Potassium Level 4.1, Chloride Level 104, Carbon Dioxide Level 22, Anion Gap 10, Blood Urea Nitrogen 7, Creatinine 0.85, Estimat Glomerular Filtration Rate 118, BUN/Creatinine Ratio 8, Glucose Level 160H, Calcium Level 8.4L, Beta-Hydroxybutyrate (Chem panel) 0.08 02/15/22 15:55: Glucometer 160H 02/15/22 20:06: Glucometer 278H 02/16/22 01:06: Glucometer 40*L 02/16/22 01:36: Glucometer 36*L 02/16/22 02:02: Glucometer 93 02/16/22 03:45: Glucometer 248H 02/16/22 05:31: White Blood Count 11.5H, Red Blood Count 4.64, Hemoglobin 12.2L, Hematocrit 37L, Mean Corpuscular Volume 80, Mean Corpuscular Hemoglobin 26, Mean Corpuscular Hemoglobin Concent 33, Red Cell Distribution Width 14.7H, Platelet Count 250, Mean Platelet Volume 9.2, Immature Granulocyte % (Auto) 0, Neutrophils (%) (Auto) 76H, Lymphocytes (%) (Auto) 17, Monocytes (%) (Auto) 6, Eosinophils (%) (Auto) 0, Basophils (%) (Auto) 0, Neutrophils # (Auto) 8.7H, Lymphocytes # (Auto) 2.0, Monocytes # (Auto) 0.7, Eosinophils # (Auto) 0.1, Basophils # (Auto) 0.0, Immature Granulocyte # (Auto) 0.0, Sodium Level 136, Potassium Level 4.5, Chloride Level 103, Carbon Dioxide Level 22, Anion Gap 11, Blood Urea Nitrogen 11, Creatinine 0.79, Estimat Glomerular Filtration Rate 121, BUN/Creatinine Ratio 14, Glucose Level 164H, Calcium Level 8.6, Corrected Calcium 9.1, Magnes ium Level 2.1, Total Bilirubin 0.5, Aspartate Amino Transf (AST/SGOT) 15, Alanine Aminotransferase (ALT/SGPT) 11, Alkaline Phosphatase 77, Total Protein 6.2L, Albumin 3.4, Beta-Hydroxybutyrate (Chem panel) 0.12 02/16/22 05:57: Glucometer 141H Home Meds Active Reported Lisinopril 20 Mg Tablet 20 Mg PO DAILY Metoclopramide HCl 10 Mg Tablet 10 Mg PO BIDAC Pantoprazole Sodium 40 Mg Tablet.dr 40 Mg PO DAILY Novolog (Insulin Aspart) 100 Unit/1 Ml Susp Unit SQ TIDAC MDD 30 UNITS USES 2 UNITS PER EVERY CARB Levemir (Insulin Determir) 1,000 Units/10 Ml Soln 5-10 Units SQ HS Assessment/Pt Instructions PCP in 1 week Discharge Planning: <30 minutes discharge planning Discharge Instructions Discharge Diet: ADA Diet Discharge Physical Examination Vital Signs Vital Signs Date Time Temp Pulse Resp B/P (MAP) Pulse Ox O2 Delivery O2 Flow Rate FiO2 02/16/22 09:00 Room Air 02/16/22 08:19 36.6 94 18 148/72 (97) 98 General Appearance: No Apparent Distress, WD/WN, Chronically ill, Thin Allergies: Coded Allergies: Penicillins (Verified Allergy, Unknown, 05/23/06) Discharge Summary Date of Admission February 14, 2022 at 12:48 Date of Discharge Discharge Date: February 16, 2022 Admission Diagnosis Assessment: DKA Cardiomyopathy Hypertension Chronic kidney disease Plan: DKA protocol Discharge Diagnosis Assessment: DKA Cardiomyopathy Hypertension Chronic kidney disease Plan: DKA protocol 02/15/22: Transfer to [facility] (1) Diabetic ketoacidosis Status: Resolved NORAH JOSÉ DO February 16, 2022 10:13
[2022-02-16 11:49] VITALS: BP 126/80
[2022-02-17] MEDS ORDERED: SCOPOLAMINE PATCH REMOVAL TP SCH (14:00)
== END 2022-02-16 14:25 | disposition home or self-care (01) | DRG 638 ==
LOC: EDUNIT# 09:28 → ER 09:29 → ICU 12:48 → 4TH 02-15 21:25
PROVIDERS: ADMIT Internal Medicine; ATTEND Internal Medicine
DX: E10.10 Type 1 diabetes mellitus with ketoacidosis without coma (principal); I42.9 Cardiomyopathy, unspecified; I12.9 Hypertensive chronic kidney disease with stage 1 through stage 4 chronic kidney disease, or unspecified chronic kidney disease; E10.22 Type 1 diabetes mellitus with diabetic chronic kidney disease; N18.9 Chronic kidney disease, unspecified; E10.319 Type 1 diabetes mellitus with unspecified diabetic retinopathy without macular edema; E10.43 Type 1 diabetes mellitus with diabetic autonomic (poly)neuropathy; K31.84 Gastroparesis; F17.290 Nicotine dependence, other tobacco product, uncomplicated; Z79.4 Long term (current) use of insulin; Z79.899 Other long term (current) drug therapy; Z88.0 Allergy status to penicillin
CPT/HCPCS: 36415; 71045; 80048; 80053; 80306; 80320; 81000; 82010; 82947; 83735; 84100; 85025

== ENCOUNTER 2022-06-02 15:22 | Emergency (ER) | payer OTHER ==
[~2022-06-02] VITALS: Ht 180.3 cm; Wt 58.9 kg
[~2022-06-02 15:22] MED LIST changes: +NIRM1TAB PO
[2022-06-02] MEDS ORDERED: NS IV 1000 ML 1,000 ML IV SCH ×2 (15:45→17:15)
[2022-06-02] MEDS ORDERED: ONDANSETRON 4 MG/2 ML (SDV) Z0FRAN IVP ONE (15:45)
--- NOTE | 2022-06-02 15:47 | ED General ---
General Chief Complaint: Abdominal/GI Problems Stated Complaint: VOMITING Nursing Triage Note: PT TO RM 2 WITH CC OF VOMITING, WEAKNESS AND FATIGUE SINCE THIS AM. PT REPORTS NO FEVER. PT IS TYPE 1 DM REPORTS BS 205 BEFORE ARRIVAL. PT CONCERNED ABOUT DKA. PT A&OX4 Source of Information: Patient Exam Limitations: No Limitations History of Present Illness Date Seen by Provider: Jun 02, 2022 Time Seen by Provider: 15:25 Initial Comments 31-year-old male type I diabetic presents to the emergency department today stating he feels as though he is in DKA. He has felt generally fatigued with nausea, vomiting and abdominal pain diffusely for the last 24 to 36 hours. He takes Lantus insulin in the evenings and NovoLog sliding scale during the day. He has not missed any doses of insulin and has maintained a regular diet. Denies any fevers chills or other infectious symptoms. He does endorse several bouts of loose stools over the last couple days. He states his blood sugars prior to arrival was 205 Allergies and Home Medications Allergies Coded Allergies: Penicillins (Verified Allergy, Unknown, 05/23/06) Patient Home Medication List Home Medication List Reviewed: Yes Insulin Aspart (Novolog) 100 Unit/1 Ml Susp, UNIT SQ TIDAC, (Reported) Entered as Reported by: NICOLLE MUNSON on 11/28/19 1021 Insulin Determir (Levemir) 1,000 Units/10 Ml Soln, 5-10 UNITS SQ HS, (Reported) Entered as Reported by: NICOLLE MUNSON on 11/28/19 1021 Lisinopril (Lisinopril) 20 Mg Tablet, 20 MG PO DAILY, (Reported) Entered as Reported by: YUMIKO SNOW on 02/16/22 0926 Metoclopramide HCl (Metoclopramide HCl) 10 Mg Tablet, 10 MG PO BIDAC, (Reported) Entered as Reported by: DANNIE PERDOMO on 01/11/21 0952 Nirmatrelvir/Ritonavir (Paxlovid Co-Pack (Eua)) 150 Mg X 2-100 Mg Tablet, 0 EACH PO BID Prescribed by: DEANNE BLANCO on 04/06/22 1235 Pantoprazole Sodium (Pantoprazole Sodium) 40 Mg Tablet.dr, 40 MG PO DAILY, (Reported) Entered as Reported by: DANNIE PERDOMO on 01/11/21 0952 Review of Systems Review of Systems Constitutional: chills, malaise EENTM: no symptoms reported Respiratory: no symptoms reported Cardiovascular: no symptoms reported Gastrointestinal: abdominal pain, vomiting Genitourinary: no symptoms reported Musculoskeletal: other (Body aches) Skin: no symptoms reported Past Yjumxrr-Qdojqo-Solimy Hx Patient Social History Tobacco Use?: No Immunizations Up To Date Tetanus Booster (TDap): Unknown PED Vaccines UTD: No First/Initial COVID19 Vaccinat: 01/03 Second COVID19 Vaccination Pierre: 02/03 Third COVID19 Vaccination Date: 01/03 Seasonal Allergies Seasonal Allergies: No Past Medical History Surgery/Hospitalization HX: DKA Surgeries: No Respiratory: Yes Pneumonia Currently Using CPAP: No Currently Using BIPAP: No Cardiac: Yes (CARDIOMYOPATHY DX 2017) Cardiomyopathy, Hypertension Neurological: No Reproductive Disorders: No Sexually Transmitted Disease: No HIV/AIDS: No Genitourinary: No Gastrointestinal: Yes (GASTROPARESIS) Musculoskeletal: No Endocrine: Yes (DX AGE 11, [place] 2001; MULTIPLE ADMITS FOR DKA) Diabetes, Insulin dep Loss of Vision: Denies Hearing Impairment: Denies Cancer: No Did You Recieve Any Treatments: No Psychosocial: Yes (Frequent marijuana use) Integumentary: Yes (WOUNDS TO LOWER LEGS-- REQUIRED WOUND CARE CLINIC TREATMENT) Blood Disorders: No Adverse Reaction/Blood Tranf: No Family Medical History Reviewed Nursing Family Hx Cardiovascular disease 19 FATHER Hypertension 19 FATHER No Pertinent Family Hx Physical Exam Vital Signs Vital Signs - First Documented 06/02/22 15:30 Temp 36.5 Pulse 107 Resp 20 B/P (MAP) 165/95 (118) Pulse Ox 100 O2 Delivery Room Air Capillary Refill : Less Than 3 Seconds Height, Weight, BMI Height: 5'11.00" Weight: 126lbs. 0.0oz. 57.773442by; 18.00 BMI Method:Stated General Appearance: No Apparent Distress, WD/WN HEENT: Normal ENT Inspection, Other (Dry mucous membrane) Neck: Normal Inspection, Non Tender Respiratory: Chest Non Tender, Lungs Clear, Normal Breath Sounds, Other (Slight tachypnea) Cardiovascular: Tachycardia Gastrointestinal: Normal Bowel Sounds, No Organomegaly, Soft, Other (Diffuse tenderness to palpation with voluntary guarding. No rebound tenderness) Extremity: Normal Capillary Refill, Normal Inspection, Non Tender Neurologic/Psychiatric: Alert, Oriented x3 Skin: Normal Color, Warm/Dry Progress/Results/Core Measures Suspected Sepsis SIRS Temperature: Pulse: 107 Respiratory Rate: 20 Laboratory Tests 06/02/22 15:40: White Blood Count 14.2H Blood Pressure 165 /95 Mean: 118 Laboratory Tests 06/02/22 15:40: Creatinine 0.94, Platelet Count 324, Total Bilirubin 1.2H Results/Orders Lab Results Laboratory Tests Test 06/02/22 15:40 06/02/22 15:51 06/02/22 17:00 Range/Units White Blood Count 14.2 H 4.3-11.0 10^3/uL Red Blood Count 4.92 4.30-5.52 10^6/uL Hemoglobin 12.9 L 13.3-17.7 g/dL Hematocrit 38 L 40-54 % Mean Corpuscular Volume 77 L 80-99 fL Mean Corpuscular Hemoglobin 26 25-34 pg Mean Corpuscular Hemoglobin Concent 34 32-36 g/dL Red Cell Distribution Width 14.6 H 10.0-14.5 % Platelet Count 324 130-400 10^3/uL Mean Platelet Volume 9.2 9.0-12.2 fL Immature Granulocyte % (Auto) 0 % Neutrophils (%) (Auto) 88 H 42-75 % Lymphocytes (%) (Auto) 8 L 12-44 % Monocytes (%) (Auto) 3 0-12 % Eosinophils (%) (Auto) 0 0-10 % Basophils (%) (Auto) 0 0-10 % Neutrophils # (Auto) 12.5 H 1.8-7.8 10^3/uL Lymphocytes # (Auto) 1.1 1.0-4.0 10^3/uL Monocytes # (Auto) 0.5 0.0-1.0 10^3/uL Eosinophils # (Auto) 0.0 0.0-0.3 10^3/uL Basophils # (Auto) 0.0 0.0-0.1 10^3/uL Immature Granulocyte # (Auto) 0.0 0.0-0.1 10^3/uL Neutrophils % (Manual) 86 % Lymphocytes % (Manual) 6 % Monocytes % (Manual) 8 % Clumped Platelets Blood Morphology Comment NORMAL Sodium Level 139 135-145 MMOL/L Potassium Level 3.8 3.6-5.0 MMOL/L Chloride Level 102 98-107 MMOL/L Carbon Dioxide Level 22 21-32 MMOL/L Anion Gap 15 H 5-14 MMOL/L Blood Urea Nitrogen 12 7-18 MG/DL Creatinine 0.94 0.60-1.30 MG/DL Estimat Glomerular Filtration Rate 110 BUN/Creatinine Ratio 13 Glucose Level 147 H 70-105 MG/DL Calcium Level 10.4 H 8.5-10.1 MG/DL Corrected Calcium 10.1 8.5-10.1 MG/DL Total Bilirubin 1.2 H 0.1-1.0 MG/DL Aspartate Amino Transf (AST/SGOT) 13 5-34 U/L Alanine Aminotransferase (ALT/SGPT) 14 0-55 U/L Alkaline Phosphatase 106 40-136 U/L Total Protein 8.5 H 6.4-8.2 GM/DL Albumin 4.4 3.2-4.5 GM/DL Lipase 16 8-78 U/L Beta-Hydroxybutyrate (Chem panel) 0.53 H 0.00-0.27 MMOL/L Glucometer 143 H 70-110 MG/DL Urine Color YELLOW Urine Clarity CLEAR Urine pH 8.0 5-9 Urine Specific [place] 1.025 H 1.016-1.022 Urine Protein 2+ H NEGATIVE Urine Glucose (UA) 3+ H NEGATIVE Urine Ketones 2+ H NEGATIVE Urine Nitrite NEGATIVE NEGATIVE Urine Bilirubin NEGATIVE NEGATIVE Urine Urobilinogen 0.2 < = 1.0 MG/DL Urine Leukocyte Esterase NEGATIVE NEGATIVE Urine RBC (Auto) 1+ H NEGATIVE Urine RBC 2-5 H /HPF Urine WBC 2-5 /HPF Urine Squamous Epithelial Cells NONE /HPF Urine Renal Epithelial Cells NONE /HPF Urine Crystals NONE /LPF Urine Bacteria NEGATIVE /HPF Urine Casts NONE /LPF Urine Mucus NEGATIVE /LPF Urine Culture Indicated NO My Orders Orders - COOPER SOSA DO Comprehensive Metabolic Panel (06/02/22 15:39) Cbc And Manual Diff (06/02/22 15:39) Ua Culture If Indicated (06/02/22 15:39) Ns Iv 1000 Ml (Sodium Chloride 0.9%) (06/02/22 15:45) Ondansetron Injection (Zofran Injectio (06/02/22 15:45) Lipase (06/02/22 15:41) Beta Hydroxybutyrate (06/02/22 15:42) Diphenhydramine Injection (Benadryl Inje (06/02/22 17:15) Ns Iv 1000 Ml (Sodium Chloride 0.9%) (06/02/22 17:15) Medications Given in ED Current Medications Medications Dose Ordered Sig/Luis Route Start Time Stop Time Status Last Admin Dose Admin Diphenhydramine HCl 25 mg ONCE ONCE IVP 06/02/22 17:15 06/02/22 17:16 DC 06/02/22 17:16 25 MG Ondansetron HCl 4 mg ONCE ONCE IVP 06/02/22 15:45 06/02/22 15:46 DC 06/02/22 16:03 4 MG Vital Signs/I&O 06/02/22 15:30 Temp 36.5 Pulse 107 Resp 20 B/P (MAP) 165/95 (118) Pulse Ox 100 O2 Delivery Room Air Capillary Refill : Less Than 3 Seconds Blood Pressure Mean: 118 Departure Communication (PCP) Patient is hemodynamically stable. Initially significant nausea and vomiting, controlled with Zofran and Benadryl. He is feeling much better after these p rovided therapies and tolerating p.o. He is given 2 L of IV fluids. No evidence for DKA otherwise Is slightly elevated at 15 there is no evidence for acidosis. He has a very small amount of serum ketones but again is not acidotic. He is discharged home in stable condition with supportive care. Impression Primary Impression: Abdominal pain Qualified Codes: R10.84 - Generalized abdominal pain Additional Impressions: Nausea and vomiting Qualified Codes: R11.2 - Nausea with vomiting, unspecified Gastroparesis due to DM Acute nausea with nonbilious vomiting Diabetes Qualified Codes: E10.9 - Type 1 diabetes mellitus without complications Disposition: 01 HOME, SELF-CARE Condition: Stable Departure-Patient Inst. Referrals: [facility] (PCP/Family) Primary Care Physician Patient Instructions: Nausea and Vomiting, Adult (DC), Abdominal Pain, Adult ED Add. Discharge Instructions: You were seen in the emergency department fearing he may be in DKA. I do not think you are in DKA at present. You may have a GI bug. Increase your fluids at home, rest. Try to eat small amounts of food to maintain your blood sugars. Use the nausea medicine as prescribed as needed. Return to the emergency department for any severe concerns. Follow-up with your primary provider in the next 2 to 3 days. All discharge instructions reviewed with patient and/or family. Voiced understariel wright. Scripts Ondansetron (Ondansetron Odt) 4 Mg Tab.rapdis 4 MG PO Q6H for Nausea for 7 Days, #20 TAB 0 Refills Prov: COOPER SOSA DO 06/02/22 COOPER SOSA DO Jun 02, 2022 15:47
[2022-06-02 16:01] LABS: BASOPHILS % (AUTO) 0 % (0-10); EOSINOPHILS % (AUTO) 0 % (0-10); HEMATOCRIT 38 % (40-54); HEMOGLOBIN 12.9 g/dL (13.3-17.7); LYMPHOCYTES # (AUTO) 1.1 10^3/uL (1.0-4.0); LYMPHOCYTES % (AUTO) 8 % (12-44); MEAN CORPUSCULAR HEMOGLOBIN 26 pg (25-34); MEAN CORPUSCULAR HGB CONC 34 g/dL (32-36); MEAN CORPUSCULAR VOLUME 77 fL (80-99); MEAN PLATELET VOLUME 9.2 fL (9.0-12.2); MONOCYTES # (AUTO) 0.5 10^3/uL (0.0-1.0); MONOCYTES % (AUTO) 3 % (0-12); NEUTROPHILS # (AUTO) 12.5 10^3/uL (1.8-7.8); NEUTROPHILS % (AUTO) 88 % (42-75); PLATELET COUNT 324 10^3/uL (130-400); WHITE BLOOD COUNT 14.2 10^3/uL (4.3-11.0)
[2022-06-02 16:11] LABS: ALBUMIN 4.4 GM/DL (3.2-4.5); POTASSIUM 3.8 MMOL/L (3.6-5.0)
[2022-06-02 16:13] LABS: CALCIUM 10.4 MG/DL (8.5-10.1)
[2022-06-02 16:14] LABS: TOTAL PROTEIN 8.5 GM/DL (6.4-8.2)
[2022-06-02 16:16] LABS: BILIRUBIN,TOTAL 1.2 MG/DL (0.1-1.0); LYMPHOCYTES % (MANUAL) 6 %; MONOCYTES % (MANUAL) 8 %; NEUTROPHILS % (MANUAL) 86 %; RBC MORPH NORMAL
[2022-06-02 16:17] LABS: CREATININE SERUM 0.94 MG/DL (0.60-1.30)
[2022-06-02 17:04] LABS: BILIRUBIN,URINE NEGATIVE (NEGATIVE); CLARITY,URINE CLEAR; COLOR,URINE YELLOW; GLUCOSE, URINE (UA) 3+ (NEGATIVE); KETONES,URINE 2+ (NEGATIVE); LEUKOCYTE ESTERASE ,URINE NEGATIVE (NEGATIVE); NITRITE,URINE NEGATIVE (NEGATIVE); PROTEIN,URINE 2+ (NEGATIVE)
[2022-06-02 17:11] LABS: BACTERIA,URINE NEGATIVE /HPF
[2022-06-02] MEDS ORDERED: diphenhydrAMINE 50 MG/ML INJ (BENADRYL) IVP ONE (17:15)
[2022-06-02] MEDS ORDERED: ONDA4TAB11 PO (17:42)
[2022-06-02 18:17] VITALS: BP 167/104
== END 2022-06-02 18:17 | disposition home or self-care (01) ==
LOC: EDUNIT# 15:22 → ER 15:24
DX: E11.43 Type 2 diabetes mellitus with diabetic autonomic (poly)neuropathy (principal); K31.84 Gastroparesis; E11.10 Type 2 diabetes mellitus with ketoacidosis without coma; Z79.4 Long term (current) use of insulin
CPT/HCPCS: 36415; 80053; 81000; 82010; 82947; 83690; 85007; 85027

== ENCOUNTER 2022-07-21 01:23 | Inpatient (IN) | payer OTHER ==
[~2022-07-21] VITALS: Ht 180.3 cm; Wt 60.9 kg
[~2022-07-21 01:23] MED LIST changes: +ONDA4TAB11 PO
--- NOTE | 2022-07-21 01:40 | ED General ---
General Chief Complaint: Glucose Problems Stated Complaint: DKA Source of Information: Patient Exam Limitations: No Limitations History of Present Illness Date Seen by Provider: Jul 21, 2022 Time Seen by Provider: 01:25 Initial Comments Patient to the ER by private conveyance for chief complaint he believes he is in DKA. He is a type I diabetic who has had multiple episodes of DKA in the past. He says he started having some nausea and vomiting around 1800/dinnertime last night. This was nearly 8 hours ago. He does not have anything at home for nausea. He does not have any diarrhea fevers chills cough shortness of air. He takes 2 units per carb of NovoLog and Levemir. He is not out of his medications. He follows with the [facility] for primary care. Allergies and Home Medications Allergies Coded Allergies: Penicillins (Verified Allergy, Unknown, 05/23/06) Patient Home Medication List Home Medication List Reviewed: Yes Insulin Aspart (Novolog) 100 Unit/1 Ml Susp, UNIT SQ TIDAC, (Reported) Entered as Reported by: NICOLLE MUNSON on 11/28/19 1021 Insulin Determir (Levemir) 1,000 Units/10 Ml Soln, 5-10 UNITS SQ HS, (Reported) Entered as Reported by: NICOLLE MUNSON on 11/28/19 1021 Lisinopril (Lisinopril) 20 Mg Tablet, 20 MG PO DAILY, (Reported) Entered as Reported by: YUMIKO SNOW on 02/16/22 0926 Metoclopramide HCl (Metoclopramide HCl) 10 Mg Tablet, 10 MG PO BIDAC, (Reported) Entered as Reported by: DANNIE PERDOMO on 01/11/21 0952 Nirmatrelvir/Ritonavir (Paxlovid Co-Pack (Eua)) 150 Mg X 2-100 Mg Tablet, 0 EACH PO BID Prescribed by: DEANNE BLANCO on 04/06/22 1235 Ondansetron (Ondansetron Odt) 4 Mg Tab.rapdis, 4 MG PO Q6H Prescribed by: COOPER SOSA MD on 06/02/22 1742 Pantoprazole Sodium (Pantoprazole Sodium) 40 Mg Tablet.dr, 40 MG PO DAILY, (Reported) Entered as Reported by: DANNIE PERDOMO on 01/11/21 0952 Review of Systems Review of Systems Constitutional: No chills, No diaphoresis, No fever; malaise, weakness EENTM: No ear pain, No eye pain Respiratory: No cough, No short of breath Cardiovascular: No chest pain, No edema Gastrointestinal: No abdominal pain, No constipation, No diarrhea; nausea, vomiting Genitourinary: No discharge, No dysuria Musculoskeletal: No back pain, No joint pain All Other Systems Reviewed Negative Unless Noted: Yes Past Xevdooh-Vrzyuh-Utsafm Hx Patient Social History Tobacco Use?: No Use of E-Cig and/or Vaping dev: No Substance use?: No Immunizations Up To Date Tetanus Booster (TDap): Unknown PED Vaccines UTD: No First/Initial COVID19 Vaccinat: 01/03 Second COVID19 Vaccination Pierre: 02/03 Third COVID19 Vaccination Date: 01/03 Seasonal Allergies Seasonal Allergies: No Past Medical History Surgery/Hospitalization HX: TYPE 1 DM, DKA Surgeries: No Respiratory: Yes Pneumonia Currently Using CPAP: No Currently Using BIPAP: No Cardiac: Yes (CARDIOMYOPATHY DX 2016) Cardiomyopathy, Hypertension Neurological: No Reproductive Disorders: No Sexually Transmitted Disease: No HIV/AIDS: No Genitourinary: No Gastrointestinal: Yes (GASTROPARESIS) Musculoskeletal: No Endocrine: Yes (DX AGE 11, [place] 2001; MULTIPLE ADMITS FOR DKA) Diabetes, Insulin dep Loss of Vision: Denies Hearing Impairment: Denies Cancer: No Did You Recieve Any Treatments: No Psychosocial: Yes (Frequent marijuana use) Integumentary: Yes (WOUNDS TO LOWER LEGS-- REQUIRED WOUND CARE CLINIC TREATMENT) Blood Disorders: No Adverse Reaction/Blood Tranf: No Family Medical History Cardiovascular disease 19 FATHER Hypertension 19 FATHER No Pertinent Family Hx Physical Exam Vital Signs Vital Signs - First Documented Capillary Refill : Height, Weight, BMI Height: 5'11.00" Weight: 126lbs. 0.0oz. 57.136102ng; 18.00 BMI Method:Stated General Appearance: Moderate Distress, Thin Eyes: Bilateral Eye Normal Inspection, Bilateral Eye PERRL, Bilateral Eye EOMI HEENT: PERRL/EOMI, Normal ENT Inspection; No Moist Mucous Membranes Neck: Full Range of Motion, Normal Inspection, Non Tender Respiratory: Lungs Clear, Normal Breath Sounds, No Accessory Muscle Use, No Respiratory Distress Cardiovascular: Regular Rate, Rhythm, No Edema, Normal Peripheral Pulses, Tachycardia (130) Gastrointestinal: Normal Bowel Sounds, Non Tender, Soft Extremity: Normal Capillary Refill, Normal Inspection, No Pedal Edema Neurologic/Psychiatric: Alert, Oriented x3, No Motor/Sensory Deficits Skin: Normal Color, Warm/Dry Progress/Results/Core Measures Suspected Sepsis SIRS Temperature: Pulse: Respiratory Rate: Laboratory Tests 07/21/22 01:35: White Blood Count 15.1H Blood Pressure / Mean: Laboratory Tests 07/21/22 01:35: Creatinine 1.26, INR Comment 1.1, Platelet Count 404H, Total Bilirubin 1.0 Results/Orders Lab Results Laboratory Tests Test 07/21/22 01:35 07/21/22 02:08 Range/Units White Blood Count 15.1 H 4.3-11.0 10^3/uL Red Blood Count 4.54 4.30-5.52 10^6/uL Hemoglobin 12.2 L 13.3-17.7 g/dL Hematocrit 37 L 40-54 % Mean Corpuscular Volume 81 80-99 fL Mean Corpuscular Hemoglobin 27 25-34 pg Mean Corpuscular Hemoglobin Concent 33 32-36 g/dL Red Cell Distribution Width 14.5 10.0-14.5 % Platelet Count 404 H 130-400 10^3/uL Mean Platelet Volume 9.1 9.0-12.2 fL Immature Granulocyte % (Auto) 1 % Neutrophils (%) (Auto) 90 H 42-75 % Lymphocytes (%) (Auto) 8 L 12-44 % Monocytes (%) (Auto) 2 0-12 % Eosinophils (%) (Auto) 0 0-10 % Basophils (%) (Auto) 0 0-10 % Neutrophils # (Auto) 13.6 H 1.8-7.8 10^3/uL Lymphocytes # (Auto) 1.2 1.0-4.0 10^3/uL Monocytes # (Auto) 0.3 0.0-1.0 10^3/uL Eosinophils # (Auto) 0.0 0.0-0.3 10^3/uL Basophils # (Auto) 0.0 0.0-0.1 10^3/uL Immature Granulocyte # (Auto) 0.1 0.0-0.1 10^3/uL Neutrophils % (Manual) 94 % Lymphocytes % (Manual) 4 % Monocytes % (Manual) 2 % Eosinophils % (Manual) 0 % Basophils % (Manual) 0 % Band Neutrophils 0 % Poikilocytosis SLIGHT Prothrombin Time 14.1 12.2-14.7 SEC INR Comment 1.1 0.8-1.4 Sodium Level 135 135-145 MMOL/L Potassium Level 4.6 3.6-5.0 MMOL/L Chloride Level 98 98-107 MMOL/L Carbon Dioxide Level 13 L 21-32 MMOL/L Anion Gap 24 H 5-14 MMOL/L Blood Urea Nitrogen 15 7-18 MG/DL Creatinine 1.26 0.60-1.30 MG/DL Estimat Glomerular Filtration Rate 77 BUN/Creatinine Ratio 12 Glucose Level 503 *H 70-105 MG/DL Glucometer 452 *H 70-110 MG/DL Calcium Level 9.6 8.5-10.1 MG/DL Corrected Calcium 9.3 8.5-10.1 MG/DL Magnesium Level 2.0 1.6-2.4 MG/DL Total Bilirubin 1.0 0.1-1.0 MG/DL Aspartate Amino Transf (AST/SGOT) 14 5-34 U/L Alanine Aminotransferase (ALT/SGPT) 9 0-55 U/L Alkaline Phosphatase 108 40-136 U/L C-Reactive Protein High Sensitivity 0.57 H 0.00-0.50 MG/DL Total Protein 8.2 6.4-8.2 GM/DL Albumin 4.4 3.2-4.5 GM/DL Lipase 17 8-78 U/L Beta-Hydroxybutyrate (Chem panel) 6.74 H 0.00-0.27 MMOL/L Urine Color YELLOW Urine Clarity CLEAR Urine pH 5.5 5-9 Urine Specific [place] 1.020 1.016-1.022 Urine Protein 1+ H NEGATIVE Urine Glucose (UA) 3+ H NEGATIVE Urine Ketones 3+ H NEGATIVE Urine Nitrite NEGATIVE NEGATIVE Urine Bilirubin NEGATIVE NEGATIVE Urine Urobilinogen 0.2 < = 1.0 MG/DL Urine Leukocyte Esterase NEGATIVE NEGATIVE Urine RBC (Auto) 1+ H NEGATIVE Urine RBC RARE /HPF Urine WBC RARE /HPF Urine Squamous Epithelial Cells NONE /HPF Urine Crystals NONE /LPF Urine Bacteria NEGATIVE /HPF Urine Casts NONE /LPF Urine Mucus NEGATIVE /LPF Urine Culture Indicated NO My Orders Orders - WILNER NAYLOR Ed Iv/Invasive Line Start (07/21/22 01:35) Ns Iv 500 Ml (Sodium Chloride 0.9%) (07/21/22 01:45) Ns Iv 1000 Ml (Sodium Chloride 0.9%) (07/21/22 01:45) Accucheck Stat ONCE (07/21/22 01:35) Cbc With Automated Diff (07/21/22 01:35) Comprehensive Metabolic Panel (07/21/22 01:35) Hs C Reactive Protein (07/21/22 01:35) Ua Culture If Indicated (07/21/22 01:35) Beta Hydroxybutyrate (07/21/22 01:35) Lipase (07/21/22 01:35) Pantoprazole Injection (Protonix Injecti (07/21/22 01:45) Ondansetron Injection (Zofran Injectio (07/21/22 01:45) Magnesium (07/21/22 01:40) Protime With Inr (07/21/22 01:40) Manual Differential (07/21/22 01:35) Insulin (Regular) Human (Novolin R (Per (07/21/22 02:30) Promethazine Injection (Phenergan Injec (07/21/22 02:30) Medications Given in ED Current Medications Medications Dose Ordered Sig/Luis Route Start Time Stop Time Status Last Admin Dose Admin Ondansetron HCl 8 mg ONCE ONCE IVP 07/21/22 01:45 07/21/22 01:46 DC 07/21/22 01:46 8 MG Pantoprazole 40 mg ONCE ONCE IV 07/21/22 01:45 07/21/22 01:46 DC 07/21/22 01:46 40 MG Sodium Chloride 500 ml @ 0 mls/hr Q0M ONCE IV 07/21/22 01:45 07/21/22 01:46 DC 07/21/22 01:47 999 MLS/HR Vital Signs/I&O 07/21/22 07/21/22 01:34 01:34 Temp 36.4 Pulse 134 Resp 26 B/P (MAP) 151/86 (107) Pulse Ox 100 O2 Delivery Room Air Room Air Capillary Refill : Progress Note : Time: 01:39 Progress Note 1500 cc would be about 30 mL/kg. 8 mg Zofran IV. Her initial sugars over 400. We will get a urine, beta hydroxybutyrate and lipase level. We will give him Protonix 40 mg as well. Departure Communication (Admissions) Time/Spoke to Admitting Phy: 02:23 Discussed the case with Dr. Knight and she agrees to admit the patient to the ICU on an insulin drip with consultation to eICU. Time/Spoke to Consulting Phy: 02:30 Discussed the case with eICU and they agreed to consult on the case. Impression Primary Impression: DKA (diabetic ketoacidoses) Disposition: ADMITTED INPATIENT Condition: Stable Admissions Decision to Admit Reason: Admit from ER (General) Decision to Admit/Date: Jul 21, 2022 Time/Decision to Admit Time: 02:20 Departure-Patient Inst. Referrals: [facility] (PCP/Family) Primary Care Physician WILNER NAYLOR Jul 21, 2022 01:40
[2022-07-21] MEDS ORDERED: NS IV 500 ML 500 ML IV ONE (01:45)
[2022-07-21] MEDS ORDERED: ONDANSETRON 4 MG/2 ML (SDV) Z0FRAN IVP ONE (01:45)
[2022-07-21] MEDS ORDERED: NS IV 1000 ML 1,000 ML IV SCH ×3 (01:45→04:00)
[2022-07-21] MEDS ORDERED: PANTOPRAZOLE 40 MG (PROTONIX) VIAL IV ONE (01:45)
[2022-07-21 01:46] LABS: BASOPHILS % (AUTO) 0 % (0-10); EOSINOPHILS % (AUTO) 0 % (0-10); HEMATOCRIT 37 % (40-54); HEMOGLOBIN 12.2 g/dL (13.3-17.7); LYMPHOCYTES # (AUTO) 1.2 10^3/uL (1.0-4.0); LYMPHOCYTES % (AUTO) 8 % (12-44); MEAN CORPUSCULAR HEMOGLOBIN 27 pg (25-34); MEAN CORPUSCULAR HGB CONC 33 g/dL (32-36); MEAN CORPUSCULAR VOLUME 81 fL (80-99); MEAN PLATELET VOLUME 9.1 fL (9.0-12.2); MONOCYTES # (AUTO) 0.3 10^3/uL (0.0-1.0); MONOCYTES % (AUTO) 2 % (0-12); NEUTROPHILS # (AUTO) 13.6 10^3/uL (1.8-7.8); NEUTROPHILS % (AUTO) 90 % (42-75); PLATELET COUNT 404 10^3/uL (130-400); WHITE BLOOD COUNT 15.1 10^3/uL (4.3-11.0)
[2022-07-21 01:56] LABS: ALBUMIN 4.4 GM/DL (3.2-4.5); POTASSIUM 4.6 MMOL/L (3.6-5.0)
[2022-07-21 01:57] LABS: CALCIUM 9.6 MG/DL (8.5-10.1)
[2022-07-21 01:58] LABS: TOTAL PROTEIN 8.2 GM/DL (6.4-8.2)
[2022-07-21 02:02] LABS: CREATININE SERUM 1.26 MG/DL (0.60-1.30); INR 1.1 (0.8-1.4); PROTHROMBIN TIME PATIENT 14.1 SEC (12.2-14.7)
[2022-07-21 02:07] LABS: BAND NEUTROPHILS 0 %; BASOPHILS % (MANUAL) 0 %; EOSINOPHILS % (MANUAL) 0 %; LYMPHOCYTES % (MANUAL) 4 %; MONOCYTES % (MANUAL) 2 %; NEUTROPHILS % (MANUAL) 94 %; POIKILOCYTOSIS SLIGHT
[2022-07-21 02:13] LABS: BILIRUBIN,URINE NEGATIVE (NEGATIVE); CLARITY,URINE CLEAR; COLOR,URINE YELLOW; GLUCOSE, URINE (UA) 3+ (NEGATIVE); KETONES,URINE 3+ (NEGATIVE); LEUKOCYTE ESTERASE ,URINE NEGATIVE (NEGATIVE); NITRITE,URINE NEGATIVE (NEGATIVE); PH,URINE 5.5 (5-9); PROTEIN,URINE 1+ (NEGATIVE)
[2022-07-21 02:23] LABS: BACTERIA,URINE NEGATIVE /HPF; RBC,URINE RARE /HPF; WBC,URINE RARE /HPF
[2022-07-21] MEDS ORDERED: PROMETHAZINE INJ 25 MG/ML (PHENERGAN) AMP IVP ONE (02:30)
[2022-07-21] MEDS ORDERED: inSUlin (REGULAR) HUMAN 1 UNIT/0.01 ML (CHARGE PER UNIT) IV ONE (02:30)
[2022-07-21 02:58] VITALS: BP 138/73
[2022-07-21] MEDS ORDERED: POTASSIUM CL 10MEQ/50ML IVPB 50 ML IV ONE (03:25)
[2022-07-21] MEDS ORDERED: 1/2 NS IV SOLUTION 1,000 ML IV ONE (03:25)
[2022-07-21] MEDS ORDERED: D5 1/2 NS 1000 ML IV SOLUTION 1,000 ML IV ONE (03:25)
[2022-07-21 03:36] LABS: CALCIUM 8.7 MG/DL (8.5-10.1)
[2022-07-21 03:41] LABS: CREATININE SERUM 1.07 MG/DL (0.60-1.30)
[2022-07-21] MEDS: 1/2 NS IV SOLUTION 1,000 ML IV SCH ×5 (03:59→20:27)
[2022-07-21] MEDS: POTASSIUM CL 10MEQ/50ML IVPB 50 ML IV SCH ×3 (03:59→07:51)
[2022-07-21] MEDS ORDERED: ACETAMINOPHEN 500 MG TAB (TYLENOL) PO PRN (04:00)
[2022-07-21] MEDS ORDERED: POTASSIUM CL 10MEQ/50ML IVPB 50 ML IV SCH (04:00)
[2022-07-21] MEDS ORDERED: fentaNYL INJ 100 MCG/2 ML AMP IV PRN (04:00)
[2022-07-21] MEDS: D5 1/2 NS 1000 ML IV SOLUTION 1,000 ML IV SCH ×2 (04:27→07:51)
[2022-07-21 04:50] LABS: BASOPHILS % (AUTO) 0 % (0-10); EOSINOPHILS % (AUTO) 0 % (0-10); HEMATOCRIT 33 % (40-54); HEMOGLOBIN 11.1 g/dL (13.3-17.7); LYMPHOCYTES # (AUTO) 0.8 10^3/uL (1.0-4.0); LYMPHOCYTES % (AUTO) 5 % (12-44); MEAN CORPUSCULAR HEMOGLOBIN 27 pg (25-34); MEAN CORPUSCULAR HGB CONC 33 g/dL (32-36); MEAN CORPUSCULAR VOLUME 81 fL (80-99); MEAN PLATELET VOLUME 8.8 fL (9.0-12.2); MONOCYTES # (AUTO) 0.9 10^3/uL (0.0-1.0); MONOCYTES % (AUTO) 5 % (0-12); NEUTROPHILS # (AUTO) 14.7 10^3/uL (1.8-7.8); NEUTROPHILS % (AUTO) 89 % (42-75); PLATELET COUNT 333 10^3/uL (130-400); WHITE BLOOD COUNT 16.5 10^3/uL (4.3-11.0)
[2022-07-21 05:06] LABS: CALCIUM 8.6 MG/DL (8.5-10.1)
[2022-07-21 05:11] LABS: CREATININE SERUM 0.97 MG/DL (0.60-1.30)
[2022-07-21] MEDS: PANTOPRAZOLE 40 MG (PROTONIX) VIAL IV SCH ×2 (07:52→11:00)
--- NOTE | 2022-07-21 08:05 | Tele-ICU Consult ---
History of Present Illness History of Present Illness Date Seen by Provider: Jul 21, 2022 Time Seen by Provider: 07:59 Date of Admission 32 yo M admitted with DKA, known IDDM-Dx at age 11 having nausea, vomiting, initial glu 503, HCO3 13, AG 24, placed on DKA protocol most recent labs HCO3 21, AG 14, glu 193, Cr down to 0.97, WBC 11.1 Sleepy, not eating, still on insulin drip, IVF has D5W, At home takes, Levemir 5-10 units at night, also on Aspart PC Multiple admissions for DKA Allergies and Home Medications Allergies Coded Allergies: Penicillins (Verified Allergy, Unknown, 05/23/06) Home Medications Insulin Aspart 100 Unit/1 Ml Susp, UNIT SQ TIDAC, (Reported) USES 2 UNITS PER EVERY CARB Insulin Determir 1,000 Units/10 Ml Soln, 5-10 UNITS SQ HS, (Reported) Lisinopril 20 Mg Tablet, 20 MG PO DAILY, (Reported) Metoclopramide HCl 10 Mg Tablet, 10 MG PO BIDAC, (Reported) Nirmatrelvir/Ritonavir 150 Mg X 2-100 Mg Tablet, 0 EACH PO BID Prescribed by: DEANNE BLANCO on 04/06/22 1235 Ondansetron 4 Mg Tab.rapdis, 4 MG PO Q6H Prescribed by: COOPER SOSA MD on 06/02/22 1742 Pantoprazole Sodium 40 Mg Tablet.dr, 40 MG PO DAILY, (Reported) Past Medical/Social/Family Hx Patient Social History Tobacco Use?: No Use of E-Cig and/or Vaping dev: Yes E-Cig or Vaping type used: CBD E-Cig and/or Vaping Freq: Current Everyday User Substance use?: No Substance type: Marijuana Alcohol Use?: No Pt stated abuse/neglect: No Immunizations Up To Date Influenza Vaccine Up-to-Date: Yes; Up-to-Date First/Initial COVID19 Vaccinat: 01/03 Second COVID19 Vaccination Pierre: 02/03 Tetanus Booster (TDap): Unknown Hepatitis A: No Hepatitis B: No TB Skin Test: None Date of Pneumonia Vaccine: Jul 16, 2016 Current Status Advance Directives: No Communicates: Verbally Primary Language: Filipino Preferred Spoken Language: Filipino Is interpretation needed?: No Past Medical History PMHx: Type I Diabetes Anxiety Diabetic Retinopathy Thyrotoxicosis Pneumonia Cardiomyopathy Gastroparesis Review of Systems Constitutional: see HPI EENTM: see HPI Respiratory: see HPI Cardiovascular: see HPI Gastrointestinal: see HPI Genitourinary: see HPI Musculoskeletal: see HPI Skin: see HPI Psychiatric/Neurological: See HPI Focused Exam Height, Weight, BMI Height: 5'11.00" Weight: 126lbs. 0.0oz. 57.782974jw; 17.25 BMI Method:Stated Exam Exam Patient acknowledged, consented, and participated in this virtual visit which was conducted using real time audio/video Vital Signs Date Time Temp Pulse Resp B/P (MAP) Pulse Ox O2 Delivery O2 Flow Rate FiO2 07/21/22 07:38 37.2 07/21/22 06:00 113 20 144/98 (113) 99 Room Air 07/21/22 05:30 120 19 166/105 (125) 100 Room Air 07/21/22 05:15 116 21 159/93 (115) 99 Room Air 07/21/22 05:00 115 11 167/100 (122) 99 Room Air 07/21/22 04:45 117 39 171/101 (124) 100 Room Air 07/21/22 04:30 124 18 169/104 (125) 99 Room Air 07/21/22 04:15 120 18 167/102 (123) 99 Room Air 07/21/22 04:00 122 24 148/85 (106) 100 Room Air 07/21/22 03:45 125 13 169/103 (125) 100 Room Air 07/21/22 03:38 100 Room Air 07/21/22 03:30 129 23 163/101 (121) 100 Room Air 07/21/22 03:15 37.0 128 14 167/93 (117) 100 Room Air 07/21/22 03:15 125 23 163/100 (121) 100 Room Air 07/21/22 03:10 138 07/21/22 03:00 129 23 167/93 (117) 100 Room Air 07/21/22 02:58 37.4 137 22 138/73 100 Room Air 07/21/22 02:08 37.4 137 22 138/73 100 Room Air 07/21/22 01:34 Room Air 07/21/22 01:34 36.4 134 26 151/86 (107) 100 Room Air I & O 07/21/22 07:00 Intake Total 1580 ml Output Total 400 ml Balance 1180 ml Height & Weight Height: 5'11.00" Weight: 126lbs. 0.0oz. 57.375084aw; 17.25 BMI Method:Stated General Appearance: Moderate Distress, Thin HEENT: PERRL/EOMI, Normal ENT Inspection; No Moist Mucous Membranes Neck: Full Range of Motion, Normal Inspection, Non Tender Respiratory: Lungs Clear, Normal Breath Sounds, No Accessory Muscle Use, No Respiratory Distress Cardiovascular: Regular Rate, Rhythm, No Edema, Normal Peripheral Pulses, Tachycardia (130) Capillary Refill: Less Than 3 Seconds Gastrointestinal: normal bowel sounds, non tender, soft Extremity: Normal Capillary Refill, Normal Inspection, No Pedal Edema Neurologic/Psychiatric: Alert, Oriented x3, No Motor/Sensory Deficits Skin: Normal Color, Warm/Dry Results Lab Laboratory Tests 07/21/22 01:35 07/21/22 03:20 07/21/22 04:40 Assessment/Plan Assessment/Plan DKA resolving, should be able to transition back to Aspart/Levemir, will give 8 U of Levemir and stop insulin drip 30 min later. ICU sliding scale Critical Care: Critically Ill Patient Time spent with patient (mins): 30 GRICELDA HARRISON MD Jul 21, 2022 08:05
[2022-07-21 09:08] LABS: POTASSIUM 3.9 MMOL/L (3.6-5.0)
[2022-07-21 09:09] LABS: CALCIUM 8.1 MG/DL (8.5-10.1)
[2022-07-21 09:13] LABS: CREATININE SERUM 0.85 MG/DL (0.60-1.30)
[2022-07-21] MEDS: inSUlin ASPART (NovoLOG) 1 UNIT/0.01 ML (CHARGE PER UNIT) SQ SCH ×3 (11:01→20:27)
[2022-07-21] MEDS: ONDANSETRON 4 MG/2 ML (SDV) Z0FRAN IV PRN (11:47)
[2022-07-21 12:07] LABS: POTASSIUM 4.1 MMOL/L (3.6-5.0)
[2022-07-21 12:08] LABS: CALCIUM 8.8 MG/DL (8.5-10.1)
[2022-07-21 12:12] LABS: CREATININE SERUM 0.86 MG/DL (0.60-1.30)
--- NOTE | 2022-07-21 12:28 | History & Physical-Hospitalist ---
MORENITA CASTILLO 07/21/22 1228: History of Present Illness HPI/Chief Complaint CC: Nausea and Vomiting 32yo M with h/o IDDM presented to the ED this morning after experiencing nausea, vomiting, and abd pain that started following dinner last night. ED workup found the patient to have a glucose of 503, bicarb of 13, and anion gap of 24. Pt is known DMT1 and states that he takes 5-10 units of levemir at night and 2 units per carb of Novolog at home and has been compliant with his medication.Pt was admitted for DKA and was initially placed on an insulin drip. This morning, pt's labs have improved; glucose was 158, anion gap was 7, and bicarb had improved to 16. Pt was laying comfortably in bed. Pt still complained of mild nausea and some soreness in his epigastric region but was otherwise feeling better. Pt hadn't eaten this morning yet due to the nausea but notes that this is normal for him after he has been in DKA. Pt denies any vomiting, diarrhea, CP, SOB, chills, and sweats. Source: patient, RN notes reviewed, old records Date Seen 07/21/22 Time Seen by a Provider: 12:09 Attending Physician [place] PCP Admitting Physician: Lore Knight DO Attending Physician: Lore Knight DO Referring Physician Date of Admission Jul 21, 2022 at 02:30 Home Medications & Allergies Home Medications Reviewed patient Home Medication Reconciliation performed by pharmacy medication reconciliations appliance technician and/or nursing. Patients Allergies have been reviewed. Allergies Allergies Coded Allergies Penicillins (Verified Allergy, Unknown, 05/23/06) Past Haaeiel-Ulrrma-Cxjynv Hx Patient Social History Tobacco Use?: No Use of E-Cig and/or Vaping dev: Yes E-Cig or Vaping type used: CBD Use of E-Cig and/or Vaping [place]: Current Everyday User Substance use?: No Substance type: Marijuana Alcohol Use?: No Pt feels they are or have been: No Immunizations Up To Date Date of Influenza Vaccine: Jun 21, 2022 First/Initial COVID19 Vaccinat: 01/03 Second COVID19 Vaccination Pierre: 02/03 Tetanus Booster (TDap): Unknown Hepatitis A: No Hepatitis B: No PED Vaccines UTD: No Date of Pneumonia Vaccine: Jul 16, 2016 Seasonal Allergies Seasonal Allergies: No Current Status Advance Directives: No Communicates: Verbally Primary Language: Qatari Preferred Spoken Language: Qatari Is interpretation needed?: No Past Medical History Pneumonia Currently Using CPAP: No Currently Using BIPAP: No Cardiomyopathy, Hypertension Sexually Transmitted Disease: No HIV/AIDS: No Gastroesophageal Reflux Diabetes, Insulin dep Loss of Vision: Denies Hearing Impairment: Denies Did You Recieve Any Treatments: No Blood Disorders: No Adverse Reaction/Blood Tranf: No PMHx: Type I Diabetes Anxiety Diabetic Retinopathy Thyrotoxicosis Pneumonia Cardiomyopathy Gastroparesis Family Medical History Cardiovascular disease 19 FATHER Hypertension 19 FATHER No Pertinent Family Hx Review of Systems Constitutional: No chills, No diaphoresis EENTM: No ear discharge, No hearing loss Respiratory: No cough, No dyspnea on exertion, No hemoptysis Cardiovascular: No chest pain, No edema Gastrointestinal: abdominal pain (epigstric soreness); No melena; nausea; No vomiting Genitourinary: No decreased output, No discharge Musculoskeletal: No back pain, No gout Skin: No change in color, No change in hair/nails Psychiatric/Neurological: Denies Anxiety, Denies Depressed All Other Systems Reviewed Negative Unless Noted: Yes Physical Exam Physical Exam Vital Signs Vital Signs - First Documented Capillary Refill : Less Than 3 Seconds Height, Weight, BMI Height: 5'11.00" Weight: 126lbs. 0.0oz. 57.883948ri; 17.25 BMI Method:Stated General Appearance: No Apparent Distress, WD/WN HEENT: PERRL/EOMI, Moist Mucous Membranes Neck: Normal Inspection, Supple Respiratory: Lungs Clear, Normal Breath Sounds, No Accessory Muscle Use Cardiovascular: No Edema, No Gallop, No Murmur, Normal Peripheral Pulses Gastrointestinal: Non Tender, Soft Back: Normal Inspection, No CVA Tenderness Extremity: Normal Inspection, Non Tender, No Calf Tenderness Neurologic/Psychiatric: Alert, Oriented x3 Skin: Normal Color, Warm/Dry Lymphatic: No Adenopathy Results Results/Procedures Labs Laboratory Tests 07/21/22 01:35 07/21/22 03:20 07/21/22 04:40 07/21/22 08:48 07/21/22 11:40 Patient resulted labs reviewed. Assessment/Plan Admission Diagnosis DKA Admission Status: Inpatient Order (span 2 midnights) Reason for Inpatient Admission: DKA Assessment and Plan DKA - resolved DMT1 -Pt has history of multiple admissions for DKA. -Pt is followed by Dr. Abbott, follow up for home maintenance of diabetes Nausea - improved Abd pain - improved Pt was given 8 units of Levemir and was then removed from insulin drip. Continue to monitor glucose levels and transition back to home insulin regimen Progress diet and see how pt tolerates Monitor glucose and if continues to improve, transfer to floor Diagnosis/Problems Diagnosis/Problems (1) IDDM (insulin dependent diabetes mellitus) Status: Chronic (2) DKA (diabetic ketoacidoses) Status: Resolved Resolution Date/Time: 04/23/21 @ 15:25 LORE KNIGHT DO 07/21/226: History of Present Illness HPI/Chief Complaint Pt was admitted for recurrent DKA. He reports he was taking his insulin but is having nausea and vomiting. His bicarb was 21. If he can't eat he goes back to D KA again, so we'll monitor closely. Source: patient Past Llutvzq-Vjigts-Ezrjnh Hx Family Medical History Cardiovascular disease 19 FATHER Hypertension 19 FATHER Supervisory-Addendum Brief Verification & Attestation Participated in pt care: history, MDM, physical Personally performed: exam, history, MDM, supervision of care Care discussed with: Medical Student Procedures: n/a Results interpretation: Verified all documentation Verification and Attestation of Medical Student E/M Service A medical student performed and documented this service in my presence. I reviewed and verified all information documented by the medical student and made modifications to such information, when appropriate. I personally performed the physical exam and medical decision making. Lore Knight Jul 21, 2022,21:06 MORENITA CASTILLO Jul 21, 2022 12:28 LORE KNIGHT DO Jul 21, 2022 21:06
[2022-07-21] MEDS ORDERED: ONDA-106 PO (14:46)
[2022-07-21] MEDS: PROMETHAZINE INJ 25 MG/ML (PHENERGAN) AMP IVP PRN (15:31)
[2022-07-21 15:54] LABS: CALCIUM 8.1 MG/DL (8.5-10.1)
[2022-07-21 15:59] LABS: CREATININE SERUM 0.76 MG/DL (0.60-1.30)
[2022-07-21] MEDS ORDERED: DEXTROSE 50% 50 ML (IMS) SYR ONE (16:01)
[2022-07-21 20:18] LABS: CALCIUM 8.5 MG/DL (8.5-10.1); CREATININE SERUM 0.83 MG/DL (0.60-1.30)
[2022-07-21] MEDS ORDERED: LACTATED RINGERS 1,000 ML IV ONE (22:26)
[2022-07-21] MEDS: LACTATED RINGERS 1,000 ML IV SCH (22:29)
[2022-07-22 00:40] LABS: POTASSIUM 3.8 MMOL/L (3.6-5.0)
[2022-07-22 00:41] LABS: CALCIUM 8.1 MG/DL (8.5-10.1)
[2022-07-22 00:45] LABS: CREATININE SERUM 0.81 MG/DL (0.60-1.30)
[2022-07-22] MEDS: inSUlin ASPART (NovoLOG) 1 UNIT/0.01 ML (CHARGE PER UNIT) SQ SCH ×4 (01:35→21:00)
[2022-07-22] MEDS ORDERED: NS IV 500 ML 500 ML IV PRN (04:00)
[2022-07-22] MEDS: 1/2 NS IV SOLUTION 1,000 ML IV SCH ×7 (04:09→20:58)
[2022-07-22 04:23] LABS: BASOPHILS % (AUTO) 0 % (0-10); EOSINOPHILS # (AUTO) 0.1 10^3/uL (0.0-0.3); EOSINOPHILS % (AUTO) 1 % (0-10); HEMATOCRIT 30 % (40-54); HEMOGLOBIN 9.7 g/dL (13.3-17.7); LYMPHOCYTES # (AUTO) 2.5 10^3/uL (1.0-4.0); LYMPHOCYTES % (AUTO) 24 % (12-44); MEAN CORPUSCULAR HEMOGLOBIN 26 pg (25-34); MEAN CORPUSCULAR HGB CONC 32 g/dL (32-36); MEAN CORPUSCULAR VOLUME 82 fL (80-99); MEAN PLATELET VOLUME 9.2 fL (9.0-12.2); MONOCYTES # (AUTO) 0.7 10^3/uL (0.0-1.0); MONOCYTES % (AUTO) 7 % (0-12); NEUTROPHILS # (AUTO) 7.1 10^3/uL (1.8-7.8); NEUTROPHILS % (AUTO) 68 % (42-75); PLATELET COUNT 296 10^3/uL (130-400); WHITE BLOOD COUNT 10.4 10^3/uL (4.3-11.0)
[2022-07-22 04:35] LABS: POTASSIUM 3.4 MMOL/L (3.6-5.0)
[2022-07-22 04:36] LABS: CALCIUM 8.3 MG/DL (8.5-10.1)
[2022-07-22 04:40] LABS: PHOSPHORUS 1.7 MG/DL (2.3-4.7)
[2022-07-22 04:41] LABS: CREATININE SERUM 0.82 MG/DL (0.60-1.30)
[2022-07-22] MEDS: POTASSIUM CL 10MEQ/50ML IVPB 50 ML IV SCH ×5 (04:48→22:51)
[2022-07-22] MEDS: MAGNESIUM 1 GM/100 ML IVPB 100 ML IV SCH (06:13)
[2022-07-22] MEDS: KCL 20 MEQ TAB (K-DUR) PO SCH (06:14)
--- NOTE | 2022-07-22 07:55 | Tele-ICU Progress Note ---
Subjective Date Seen by a Provider: Jul 22, 2022 Time Seen by a Provider: 07:52 Subjective/Events-last exam DKA has resolved, last glu 112, HCO3 23, AG 7, pt is eating and received 8 U of Levemir yesterday but dropped glu to 60's as pt was not eating, having nausea and vomiting Today is eating, will keep on sliding scale and tonight give 5 U Levemir tonight Sepsis Event Evaluation Height, Weight, BMI Height: 5'11.00" Weight: 126lbs. 0.0oz. 57.096517rg; 17.22 BMI Method:Stated Exam Exam Patient acknowledged, consented, and participated in this virtual visit which was conducted using real time audio/video Vital Signs Date Time Temp Pulse Resp B/P (MAP) Pulse Ox O2 Delivery O2 Flow Rate FiO2 07/22/22 07:00 83 07/22/22 06:00 80 15 112/77 (89) 99 Room Air 07/22/22 05:00 80 132/96 (108) 99 Room Air 07/22/22 04:00 99 Room Air 07/22/22 04:00 83 16 123/72 (89) 99 Room Air 07/22/22 03:27 36.6 07/22/22 03:00 80 15 111/74 (86) 99 Room Air 07/22/22 02:00 79 132/88 (103) 99 Room Air 07/22/22 01:00 84 07/22/22 01:00 82 19 123/83 (96) 99 Room Air 07/22/22 00:00 89 22 120/77 (91) 99 Room Air 07/21/22 23:57 98 Room Air 07/21/22 23:43 36.9 07/21/22 23:00 85 18 129/82 (98) 99 Room Air 07/21/22 22:00 82 16 121/80 (94) 99 Room Air 07/21/22 21:00 85 17 126/82 (97) 99 Room Air 07/21/22 20:00 99 Room Air 07/21/22 20:00 98 19 137/93 (108) 99 Room Air 07/21/22 19:42 37.1 07/21/22 19:00 86 17 125/80 (95) 98 Room Air 07/21/22 19:00 91 07/21/22 18:00 87 16 128/82 (97) 98 Room Air 07/21/22 17:00 92 20 120/70 (87) 98 Room Air 07/21/22 16:00 100 Room Air 07/21/22 16:00 95 20 113/67 (82) 98 Room Air 07/21/22 15:57 36.9 07/21/22 15:00 92 18 130/81 (97) 98 Room Air 07/21/22 14:00 99 11 152/90 (110) 98 Room Air 07/21/22 13:00 104 16 150/94 (112) 98 Room Air 07/21/22 13:00 101 07/21/22 12:00 112 18 169/105 (126) 100 Room Air 07/21/22 11:54 37.2 07/21/22 11:20 100 Room Air 07/21/22 11:00 99 20 126/78 (94) 99 Room Air 07/21/22 10:00 96 21 123/73 (90) 99 Room Air 07/21/22 09:00 98 21 121/74 (90) 97 Room Air 07/21/22 08:00 100 Room Air 07/21/22 08:00 96 9 124/66 (85) 98 Room Air I & O 07/22/22 07:00 Intake Total 1170 ml Output Total 1700 ml Balance -530 ml Height & Weight Height: 5'11.00" Weight: 126lbs. 0.0oz. 57.693142fg; 17.22 BMI Method:Stated General Appearance: Moderate Distress, Thin HEENT: PERRL/EOMI, Normal ENT Inspection; No Moist Mucous Membranes Neck: Full Range of Motion, Normal Inspection, Non Tender Respiratory: Lungs Clear, Normal Breath Sounds, No Accessory Muscle Use, No Respiratory Distress Cardiovascular: Regular Rate, Rhythm, No Edema, Normal Peripheral Pulses, Tachycardia (130) Capillary Refill: Less Than 3 Seconds Gastrointestinal: normal bowel sounds, non tender, soft Extremity: Normal Capillary Refill, Normal Inspection, No Pedal Edema Neurologic/Psychiatric: Alert, Oriented x3, No Motor/Sensory Deficits Skin: Normal Color, Warm/Dry Lymphatic: No Adenopathy Results Lab Laboratory Tests 07/21/22 01:35 07/21/22 03:20 07/21/22 04:40 07/21/22 08:48 07/21/22 11:40 07/21/22 15:37 07/21/22 19:56 07/22/22 00:15 07/22/22 03:52 Assessment/Plan Assessment/Plan DKA has resolved Critical Care: Critically Ill Patient GRICELDA HARRISON MD Jul 22, 2022 07:55
[2022-07-22] MEDS: LACTATED RINGERS 1,000 ML IV SCH ×2 (08:30→10:52)
[2022-07-22 08:51] LABS: POTASSIUM 4.3 MMOL/L (3.6-5.0)
[2022-07-22 08:52] LABS: CALCIUM 8.2 MG/DL (8.5-10.1)
[2022-07-22 08:57] LABS: CREATININE SERUM 0.78 MG/DL (0.60-1.30)
[2022-07-22] MEDS: ONDANSETRON 4 MG/2 ML (SDV) Z0FRAN IV PRN ×2 (09:29→16:46)
[2022-07-22] MEDS: PROMETHAZINE INJ 25 MG/ML (PHENERGAN) AMP IVP PRN ×2 (10:52→21:46)
[2022-07-22 12:31] LABS: CALCIUM 8.5 MG/DL (8.5-10.1)
[2022-07-22 12:36] LABS: CREATININE SERUM 0.81 MG/DL (0.60-1.30)
[2022-07-22] MEDS: METOCLOPRAMIDE INJ 10 MG/2 ML (REGLAN) IVP SCH ×3 (13:16→23:49)
--- NOTE | 2022-07-22 14:59 | Progress Note - Hospitalist ---
MORENITA CASTILLO 07/22/22 1459: Subjective HPI/CC On Admission Date Seen by Provider: Jul 22, 2022 Time Seen by Provider: 14:54 Pt was admitted for recurrent DKA. He reports he was taking his insulin but is having nausea and vomiting. His bicarb was 21. If he can't eat he goes back to DKA again, so we'll monitor closely. Subjective/Events-last exam Pt is laying in bed in mild discomfort. Pt was able to eat breakfast this morning but then began to experience nausea and vomiting. Pt has vomited numerous times since this morning and has been unable to eat anything since. Pt was given zofran earlier but denies relief. Was switched to phenergan and seems to have had some relief. Pt's glucose today was 280. Pt denies any CP or SOA. Review of Systems General: No Chills, No Night Sweats HEENT: No Head Aches, No Visual Changes, No Eye Pain Pulmonary: No Dyspnea, No Cough Cardiovascular: No: Chest Pain, Palpitations, Orthopnea Gastrointestinal: No: Nausea, Vomiting, Abdominal Pain Genitourinary: No Dysuria, No Frequency Musculoskeletal: No: neck pain, shoulder pain Neurological: No: Weakness, Numbness, Incoordination Objective Exam Vital Signs Vital Signs Date Time Temp Pulse Resp B/P (MAP) Pulse Ox O2 Delivery O2 Flow Rate FiO2 07/22/22 14:00 101 20 150/95 (113) 99 Room Air 07/22/22 08:00 36.6 Capillary Refill : Less Than 3 Seconds General Appearance: WD/WN, Mild Distress HEENT: PERRL/EOMI, Moist Mucous Membranes Neck: Normal Inspection, Supple Respiratory: Normal Breath Sounds, No Accessory Muscle Use Cardiovascular: No Edema, No Gallop, No Murmur, Tachycardia Gastrointestinal: Non Tender, Soft Back: Normal Inspection, No CVA Tenderness Extremity: Normal Inspection, No Calf Tenderness, No Pedal Edema Neurologic/Psychiatric: Alert, Oriented x3 Skin: Normal Color, Warm/Dry, Other (ulcer on L great toe noted) Lymphatic: No Adenopathy Results/Procedures Lab Laboratory Tests 07/21/22 15:37 07/21/22 19:56 07/22/22 00:15 07/22/22 03:52 07/22/22 08:12 07/22/22 12:12 Patient resulted labs reviewed. Assessment/Plan Assessment and Plan Assess & Plan/Chief Complaint DKA - resolved DMT1 -Pt has history of multiple admissions for DKA. -Pt is followed by Dr. Abbott, follow up for home maintenance of diabetes Nausea Abd pain - improved Vomiting Start Metoclopromide 10mg Q6HR Continue sliding scale insulin regimen, adjust as needed Have pt eat when able Continue to monitor glucose Antiemetics prn Diagnosis/Problems Diagnosis/Problems (1) IDDM (insulin dependent diabetes mellitus) Status: Chronic (2) DKA (diabetic ketoacidoses) Status: Resolved Resolution Date/Time: 04/23/21 @ 15:25 ROSITA PINEDA MD 07/22/22 1714: Supervisory-Addendum Brief Verification & Attestation Participated in pt care: history, MDM, physical Personally performed: exam, history, MDM, supervision of care Care discussed with: Medical Student Procedures: n/a Patient evaluated in conjunction with medical student electronic medical record reviewed. MORENITA CASTILLO Jul 22, 2022 14:59 ROSITA PINEDA MD Jul 22, 2022 17:14
[2022-07-22 15:57] LABS: POTASSIUM 3.8 MMOL/L (3.6-5.0)
[2022-07-22 15:58] LABS: CALCIUM 8.7 MG/DL (8.5-10.1)
[2022-07-22 16:03] LABS: CREATININE SERUM 0.79 MG/DL (0.60-1.30)
[2022-07-22] MEDS ORDERED: inSUlin ASPART (NovoLOG) 1 UNIT/0.01 ML (CHARGE PER UNIT) SC NR (17:30)
[2022-07-22] MEDS ORDERED: MAGNESIUM 1 GM/100 ML IVPB 100 ML IV ONE (17:30)
[2022-07-22] MEDS: D5 LR IV SOLUTION 1,000 ML IV SCH ×2 (18:37→21:08)
[2022-07-22 20:19] LABS: CALCIUM 8.2 MG/DL (8.5-10.1); CREATININE SERUM 1.02 MG/DL (0.60-1.30); POTASSIUM 3.9 MMOL/L (3.6-5.0)
--- NOTE | 2022-07-22 20:44 | Tele-ICU Progress Note ---
Progress Note Surveillance BMP with glucose 280, bicarb from 21 to 15, gap from 13 to 16. This afternoon gave half the SC insulin indicated due to poor PO tolerance and concerns for hypoglycemia. Also has D5 still running at 250. Will restart insulin gtt, hope to transition in AM. Will change fluids to LR next time the insulin gtt is weaned off. Focused Exam Height, Weight, BMI Height: 5'11.00" Weight: 126lbs. 0.0oz. 57.445025ll; 17.22 BMI Method:Stated CAMILO GUILLEN MD Jul 22, 2022 20:44
[2022-07-22] MEDS ORDERED: D5 LR IV SOLUTION 1,000 ML IV SCH (21:00)
[2022-07-22] MEDS: D5 1/2 NS 1000 ML IV SOLUTION 1,000 ML IV SCH (23:05)
[2022-07-23 00:44] LABS: POTASSIUM 3.5 MMOL/L (3.6-5.0)
[2022-07-23 00:45] LABS: CALCIUM 8.1 MG/DL (8.5-10.1)
[2022-07-23 00:50] LABS: CREATININE SERUM 0.93 MG/DL (0.60-1.30)
[2022-07-23] MEDS: POTASSIUM CL 10MEQ/50ML IVPB 50 ML IV SCH ×5 (00:53→06:43)
[2022-07-23] MEDS: D5 LR IV SOLUTION 1,000 ML IV SCH ×2 (01:00→05:43)
[2022-07-23] MEDS: D5 1/2 NS 1000 ML IV SOLUTION 1,000 ML IV SCH (03:50)
[2022-07-23] MEDS: 1/2 NS IV SOLUTION 1,000 ML IV SCH (04:00)
[2022-07-23 05:46] LABS: BASOPHILS % (AUTO) 0 % (0-10); EOSINOPHILS % (AUTO) 0 % (0-10); HEMATOCRIT 31 % (40-54); HEMOGLOBIN 10.4 g/dL (13.3-17.7); LYMPHOCYTES # (AUTO) 2.1 10^3/uL (1.0-4.0); LYMPHOCYTES % (AUTO) 19 % (12-44); MEAN CORPUSCULAR HEMOGLOBIN 27 pg (25-34); MEAN CORPUSCULAR HGB CONC 34 g/dL (32-36); MEAN CORPUSCULAR VOLUME 79 fL (80-99); MEAN PLATELET VOLUME 9.4 fL (9.0-12.2); MONOCYTES # (AUTO) 0.8 10^3/uL (0.0-1.0); MONOCYTES % (AUTO) 7 % (0-12); NEUTROPHILS # (AUTO) 8.3 10^3/uL (1.8-7.8); NEUTROPHILS % (AUTO) 74 % (42-75); PLATELET COUNT 325 10^3/uL (130-400); WHITE BLOOD COUNT 11.3 10^3/uL (4.3-11.0)
[2022-07-23] MEDS: KCL 20 MEQ TAB (K-DUR) PO SCH (06:00)
[2022-07-23] MEDS: MAGNESIUM 1 GM/100 ML IVPB 100 ML IV SCH (06:00)
[2022-07-23] MEDS: inSUlin ASPART (NovoLOG) 1 UNIT/0.01 ML (CHARGE PER UNIT) SQ SCH ×3 (06:00→16:10)
[2022-07-23 06:04] LABS: POTASSIUM 3.5 MMOL/L (3.6-5.0)
[2022-07-23 06:06] LABS: CALCIUM 7.9 MG/DL (8.5-10.1)
[2022-07-23 06:10] LABS: CREATININE SERUM 0.8 MG/DL (0.60-1.30); PHOSPHORUS 1.8 MG/DL (2.3-4.7)
[2022-07-23] MEDS: METOCLOPRAMIDE INJ 10 MG/2 ML (REGLAN) IVP SCH ×3 (06:43→18:34)
--- NOTE | 2022-07-23 07:18 | Tele-ICU Progress Note ---
Subjective Date Seen by a Provider: Jul 23, 2022 Time Seen by a Provider: 07:18 Subjective/Events-last exam Went back into DKA last night currently on D5W/0.45NS @ 250 mL/h and received 5 units of Levemir this am but at 9am glu 33 and given amp D50W, Not eating well but no nausea and thinks can eat juice and crackers HCO3 as low as 15, now 22, AG has closed Sepsis Event Evaluation Height, Weight, BMI Height: 5'11.00" Weight: 126lbs. 0.0oz. 57.539529ew; 18.82 BMI Method:Stated Exam Exam Patient acknowledged, consented, and participated in this virtual visit which was conducted using real time audio/video Vital Signs Date Time Temp Pulse Resp B/P (MAP) Pulse Ox O2 Delivery O2 Flow Rate FiO2 07/23/22 06:00 87 19 128/88 (101) 99 Room Air 07/23/22 05:26 92 19 131/89 (103) 98 Room Air 07/23/22 04:00 98 Room Air 07/23/22 04:00 88 19 136/66 (89) 99 Room Air 07/23/22 03:00 88 19 120/76 (91) 98 Room Air 07/23/22 02:00 92 21 126/80 (95) 98 Room Air 07/23/22 01:00 102 07/23/22 01:00 97 36 124/83 (97) 100 Room Air 07/23/22 00:00 122 26 159/93 (115) 98 Room Air 07/22/22 23:59 99 Room Air 07/22/22 23:47 37.7 07/22/22 23:00 101 22 154/93 (113) 99 Room Air 07/22/22 22:00 118 18 157/99 (118) 100 Room Air 07/22/22 21:00 121 126/65 (85) 99 Room Air 07/22/22 19:53 99 Room Air 07/22/22 19:46 37.8 113 19 130/79 (96) 99 Room Air 07/22/22 19:00 100 07/22/22 19:00 104 27 130/79 (96) 98 Room Air 07/22/22 18:00 115 110/56 (74) 99 Room Air 07/22/22 17:00 138 117/55 (75) 100 Room Air 07/22/22 16:00 Room Air 07/22/22 16:00 105 15 166/104 (124) 100 Room Air 07/22/22 15:00 101 150/98 (115) 99 Room Air 07/22/22 14:00 101 20 150/95 (113) 99 Room Air 07/22/22 13:00 88 148/88 (108) 98 Room Air 07/22/22 12:43 90 07/22/22 12:00 Room Air 07/22/22 12:00 84 14 165/105 (125) 99 Room Air 07/22/22 11:00 89 11 162/99 (120) 98 Room Air 07/22/22 10:00 101 21 173/115 (134) 100 Room Air 07/22/22 09:00 105 12 166/109 (128) 100 Room Air 07/22/22 08:00 82 15 134/83 (100) 99 Room Air 07/22/22 08:00 36.6 07/22/22 08:00 Room Air I & O 07/23/22 07:00 Intake Total 2950 ml Output Total 2750 ml Balance 200 ml Height & Weight Height: 5'11.00" Weight: 126lbs. 0.0oz. 57.694299re; 18.82 BMI Method:Stated General Appearance: WD/WN, Mild Distress HEENT: PERRL/EOMI, Moist Mucous Membranes Neck: Normal Inspection, Supple Respiratory: Lungs Clear, Normal Breath Sounds, No Accessory Muscle Use Cardiovascular: Regular Rate, Rhythm, No Edema, No Gallop, No Murmur, Tachycardia, Other Capillary Refill: Less Than 3 Seconds Gastrointestinal: normal bowel sounds, non tender, soft Extremity: Normal Inspection, No Calf Tenderness, No Pedal Edema Neurologic/Psychiatric: Alert, Oriented x3 Skin: Normal Color, Warm/Dry, Other (ulcer on L great toe noted) Lymphatic: No Adenopathy Results Lab Laboratory Tests 07/21/22 08:48 07/21/22 11:40 07/21/22 15:37 07/21/22 19:56 07/22/22 00:15 07/22/22 03:52 07/22/22 08:12 07/22/22 12:12 07/22/22 15:40 07/22/22 19:49 07/23/22 00:22 10/8/22 04:59 Assessment/Plan Assessment/Plan Brittle diabetic, will continue Levemir and sliding scale, Normally at a higher dose of insulin at home but due to nausea and vomiting will keep on 5U of Levemir and run IV D5W/0.45 NS @ 250 mL/h until sure he can keep food down. clinical unit educator to see pt Critical Care: Critically Ill Patient Time spent with patient (mins): 30 GRICELDA HARRISON MD Jul 23, 2022 07:18
[2022-07-23 08:24] LABS: POTASSIUM 3.5 MMOL/L (3.6-5.0)
[2022-07-23 08:25] LABS: CALCIUM 8.1 MG/DL (8.5-10.1)
[2022-07-23 08:29] LABS: CREATININE SERUM 0.76 MG/DL (0.60-1.30)
[2022-07-23] MEDS: PANTOPRAZOLE 40 MG (PROTONIX) VIAL IV SCH (08:53)
[2022-07-23] MEDS ORDERED: DEXTROSE 50% 50 ML (IMS) SYR ONE (08:56)
--- NOTE | 2022-07-23 10:28 | Progress Note - Hospitalist ---
Subjective HPI/CC On Admission Date Seen by Provider: Jul 23, 2022 Time Seen by Provider: 10:23 Pt was admitted for recurrent DKA. He reports he was taking his insulin but is having nausea and vomiting. His bicarb was 21. If he can't eat he goes back to DKA again, so we'll monitor closely. Subjective/Events-last exam Patient feeling better this morning ate a regular breakfast with no nausea. He did have an episode of hypoglycemia this morning for which she received an amp of D50 he had breakfast and his blood sugar was up to 260. Yesterday he did require reinitiation of an insulin drip for an increasing gap but this was stopped after about 12 hours after his episode of hypoglycemia. Objective Exam Vital Signs Vital Signs Date Time Temp Pulse Resp B/P (MAP) Pulse Ox O2 Delivery O2 Flow Rate FiO2 07/23/22 10:00 128 21 128/71 (90) 100 Room Air 07/22/22 23:47 37.7 Capillary Refill : Less Than 3 Seconds General Appearance: No Apparent Distress, Chronically ill Respiratory: Chest Non Tender, Lungs Clear, Normal Breath Sounds, No Accessory Muscle Use, No Respiratory Distress Cardiovascular: Regular Rate, Rhythm, No Edema, No Gallop, No JVD, No Murmur, Normal Peripheral Pulses Gastrointestinal: No Organomegaly, No Pulsatile Mass, Non Tender, Soft, Other (Some bowel sounds present today but hypoactive no distention.) Results/Procedures Lab Laboratory Tests 07/22/22 12:12 07/22/22 15:40 07/22/22 19:49 07/23/22 00:22 07/23/22 04:59 07/23/22 08:04 Patient resulted labs reviewed. Assessment/Plan Assessment and Plan Assess & Plan/Chief Complaint 1. Diabetic ketoacidosis aggravated by gastroparesis currently symptoms are improved on Reglan patient normally takes around 6 units before meals and 5 units of Levemir at bedtime will reinitiate giving 6 units now and then before meals if appetite remains good today with stable labs and no evidence for recurrent ketoacidosis hopeful discharge tomorrow. Critical Care Critically Ill Patient ROSITA PINEDA MD Jul 23, 2022 10:28
[2022-07-23] MEDS ORDERED: inSUlin ASPART (NovoLOG) 1 UNIT/0.01 ML (CHARGE PER UNIT) SC SCH (12:00)
[2022-07-23] MEDS ORDERED: D5 LR IV SOLUTION 1,000 ML IV ONE (18:17)
[2022-07-23] MEDS: inSUlin ASPART (NovoLOG) 1 UNIT/0.01 ML (CHARGE PER UNIT) SC SCH (18:34)
[2022-07-23] MEDS ORDERED: D5 LR IV SOLUTION 1,000 ML IV SCH (18:45)
[2022-07-24] MEDS: METOCLOPRAMIDE INJ 10 MG/2 ML (REGLAN) IVP SCH ×2 (00:27→06:07)
[2022-07-24 05:33] LABS: BASOPHILS % (AUTO) 0 % (0-10); EOSINOPHILS # (AUTO) 0.1 10^3/uL (0.0-0.3); EOSINOPHILS % (AUTO) 1 % (0-10); HEMATOCRIT 33 % (40-54); HEMOGLOBIN 11.1 g/dL (13.3-17.7); LYMPHOCYTES # (AUTO) 1.5 10^3/uL (1.0-4.0); LYMPHOCYTES % (AUTO) 16 % (12-44); MEAN CORPUSCULAR HEMOGLOBIN 27 pg (25-34); MEAN CORPUSCULAR HGB CONC 34 g/dL (32-36); MEAN CORPUSCULAR VOLUME 80 fL (80-99); MEAN PLATELET VOLUME 9.3 fL (9.0-12.2); MONOCYTES # (AUTO) 0.6 10^3/uL (0.0-1.0); MONOCYTES % (AUTO) 7 % (0-12); NEUTROPHILS # (AUTO) 7.2 10^3/uL (1.8-7.8); NEUTROPHILS % (AUTO) 76 % (42-75); PLATELET COUNT 272 10^3/uL (130-400); WHITE BLOOD COUNT 9.4 10^3/uL (4.3-11.0)
[2022-07-24 05:58] LABS: CALCIUM 8.7 MG/DL (8.5-10.1); CREATININE SERUM 1.02 MG/DL (0.60-1.30); MAGNESIUM 1.8 MG/DL (1.6-2.4); PHOSPHORUS 2.4 MG/DL (2.3-4.7)
[2022-07-24] MEDS: KCL 20 MEQ TAB (K-DUR) PO SCH (06:00)
[2022-07-24] MEDS: POTASSIUM CL 10MEQ/50ML IVPB 50 ML IV SCH (06:00)
[2022-07-24] MEDS: MAGNESIUM 1 GM/100 ML IVPB 100 ML IV SCH (06:00)
[2022-07-24] MEDS: inSUlin ASPART (NovoLOG) 1 UNIT/0.01 ML (CHARGE PER UNIT) SC SCH (06:07)
[2022-07-24] MEDS ORDERED: inSUlin ASPART (NovoLOG) 1 UNIT/0.01 ML (CHARGE PER UNIT) SC ONE (06:45)
[2022-07-24] MEDS: PANTOPRAZOLE 40 MG (PROTONIX) VIAL IV SCH (09:02)
--- NOTE | 2022-07-24 11:24 | Discharge Summary ---
Diagnosis/Chief Complaint Date of Admission Jul 21, 2022 at 02:30 Date of Discharge Discharge Date: Jul 24, 2022 Admission Diagnosis DKA [facility] Discharge Diagnosis (1) IDDM (insulin dependent diabetes mellitus) Status: Chronic (2) DKA (diabetic ketoacidoses) Status: Resolved Discharge Summary Discharge Physical Exam Allergies: Coded Allergies: Penicillins (Verified Allergy, Unknown, 05/23/06) Vitals & I&Os Vital Signs Date Time Temp Pulse Resp B/P (MAP) Pulse Ox O2 Delivery O2 Flow Rate FiO2 07/24/22 11:00 97 8 150/98 (115) 99 Room Air 07/24/22 08:00 37.0 General Appearance: No Apparent Distress, Chronically ill Respiratory: Chest Non Tender, Lungs Clear, Normal Breath Sounds, No Accessory Muscle Use, No Respiratory Distress Cardiovascular: Regular Rate, Rhythm, No Edema, No Gallop, No JVD, No Murmur, Normal Peripheral Pulses Gastrointestinal: No Organomegaly, No Pulsatile Mass, Non Tender, Soft, Other (Bowel sounds present but hypoactive no distention) Hospital Course Was the Problem List Reviewed?: Yes Patient presented emergency room with nausea and vomiting a type I diabetic who has had multiple admissions for DKA in the past. He was again noted to be in DKA likely aggravated by diabetic gastroparesis. He is a brittle diabetic and and again was noted to have rather labile blood sugars with an otherwise uneventful admission with ultimate resolution of his DKA. He reports that he has his basal and bolus insulin at home as well as metoclopramide and other home medications as well as diabetic monitoring supplies. We did discuss the importance of more frequent blood sugar checks and he does report he has an appointment in 1 to 2 weeks at [facility] where she was strongly encouraged to keep. He was having no nausea or vomiting tolerating solids. We discussed the importance of taking his metoclopramide 30 minutes before meals and if needed at bedtime as well and he reports he does have this at home. Labs (last 24 hrs) Laboratory Tests 07/23/22 15:30: Glucometer 46*L 07/23/22 16:05: Glucometer 98 07/23/22 21:59: Glucometer 175H 07/24/22 05:04: Sodium Level 131L, Potassium Level 5.0, Chloride Level 97L, Carbon Dioxide Level 24, Anion Gap 10, Blood Urea Nitrogen 13, Creatinine 1.02, Estimat Glomerular Filtration Rate 100, BUN/Creatinine Ratio 13, Glucose Level 436*H, Calcium Level 8.7, Phosphorus Level 2.4, Magnesium Level 1.8, Beta-Hydroxybutyrate (Chem panel) 0.95H 07/24/22 05:11: White Blood Count 9.4, Red Blood Count 4.12L, Hemoglobin 11.1L, Hematocrit 33L, Mean Corpuscular Volume 80, Mean Corpuscular Hemoglobin 27, Mean Corpuscular Hemoglobin Concent 34, Red Cell Distribution Width 14.1, Platelet Count 272, Mean Platelet Volume 9.3, Immature Granulocyte % (Auto) 0, Neutrophils (%) (Auto) 76H, Lymphocytes (%) (Auto) 16, Monocytes (%) (Auto) 7, Eosinophils (%) (Auto) 1, Basophils (%) (Auto) 0, Neutrophils # (Auto) 7.2, Lymphocytes # (Auto) 1.5, Monocytes # (Auto) 0.6, Eosinophils # (Auto) 0.1, Basophils # (Auto) 0.0, Immature Granulocyte # (Auto) 0.0 07/24/22 06:38: Glucometer 351H 07/24/22 09:00: Glucometer 246H 07/24/22 10:44: Glucometer 235H Microbiology 07/21/22 MRSA Screen - Final, Complete MRSA not isolated Patient resulted labs reviewed. Pending Labs Laboratory Tests 07/24/22 05:04: Sodium Level 131, Potassium Level 5.0, Chloride Level 97, Carbon Dioxide Level 24, Anion Gap 10, Blood Urea Nitrogen 13, Creatinine 1.02, Estimat Glomerular Filtration Rate 100, BUN/Creatinine Ratio 13, Glucose Level 436, Calcium Level 8.7, Phosphorus Level 2.4, Magnesium Level 1.8, Beta-Hydroxybutyrate (Chem panel) 0.95 07/24/22 05:11: White Blood Count 9.4, Red Blood Count 4.12, Hemoglobin 11.1, Hematocrit 33, Mean Corpuscular Volume 80, Mean Corpuscular Hemoglobin 27, Mean Corpuscular Hemoglobin Concent 34, Red Cell Distribution Width 14.1, Platelet Count 272, Shayna n Platelet Volume 9.3, Immature Granulocyte % (Auto) 0, Neutrophils (%) (Auto) 76, Lymphocytes (%) (Auto) 16, Monocytes (%) (Auto) 7, Eosinophils (%) (Auto) 1, Basophils (%) (Auto) 0, Neutrophils # (Auto) 7.2, Lymphocytes # (Auto) 1.5, Monocytes # (Auto) 0.6, Eosinophils # (Auto) 0.1, Basophils # (Auto) 0.0, Immature Granulocyte # (Auto) 0.0 07/24/22 06:38: Glucometer 351 07/24/22 09:00: Glucometer 246 07/24/22 10:44: Glucometer 235 Discussion & Recommendations Discharge Planning: <30 minutes discharge planning Discharge Home Medications: Active Scripts Active Reported Ondansetron HCl 8 Mg Tablet 8 Mg PO Q6H PRN Lisinopril 20 Mg Tablet 20 Mg PO DAILY Metoclopramide HCl 10 Mg Tablet 10 Mg PO ACHS Pantoprazole Sodium 40 Mg Tablet.dr 40 Mg PO DAILY Novolog (Insulin Aspart) 100 Unit/1 Ml Susp Unit SQ TIDAC MDD 30 UNITS USES 2 UNITS PER EVERY CARB Levemir (Insulin Determir) 1,000 Units/10 Ml Soln 5-10 Units SQ HS Instructions to patient/family Please see electronic discharge instructions given to patient. Copy Copies To 1: [facility]/ROSITA JETER MD Jul 24, 2022 11:24
== END 2022-07-24 12:49 | disposition home or self-care (01) | DRG 638 ==
LOC: EDUNIT# 01:23 → ER 01:25 → ICU 02:30
PROVIDERS: ADMIT Internal Medicine; ATTEND Internal Medicine
DX: E10.10 Type 1 diabetes mellitus with ketoacidosis without coma (principal); I42.9 Cardiomyopathy, unspecified; Z79.4 Long term (current) use of insulin; E10.649 Type 1 diabetes mellitus with hypoglycemia without coma; E10.43 Type 1 diabetes mellitus with diabetic autonomic (poly)neuropathy; K31.84 Gastroparesis; E10.319 Type 1 diabetes mellitus with unspecified diabetic retinopathy without macular edema; I10 Essential (primary) hypertension; K21.9 Gastro-esophageal reflux disease without esophagitis; F12.90 Cannabis use, unspecified, uncomplicated; Z88.0 Allergy status to penicillin
CPT/HCPCS: 36415; 80048; 80053; 81000; 82010; 82947; 83036; 83690; 83735; 84100; 85007; 85025; 85027; 85610; 86141; 87081; 96374; 96375

== ENCOUNTER 2022-09-17 13:14 | Emergency (ER) | payer OTHER ==
[~2022-09-17] VITALS: Ht 180 cm; Wt 58.0 kg
[2022-09-17] MEDS ORDERED: ONDANSETRON 4 MG/2 ML (SDV) Z0FRAN IVP ONE (13:45)
--- NOTE | 2022-09-17 13:46 | ED General ---
General Chief Complaint: Glucose Problems Stated Complaint: DKA Nursing Triage Note: ARRIVED VIA AMB TO ROOM WITH COMPLAINTS OF NAUSEA AND NOT FEELING WELL STARTING THIS AM. THINKS HE IS IN DKA. Source of Information: Patient Exam Limitations: No Limitations History of Present Illness Date Seen by Provider: Sep 17, 2022 Time Seen by Provider: 13:40 Initial Comments 32-year-old male type I diabetic presents the emergency department feeling he is in DKA. Symptoms include nausea vomiting generalized weakness. Symptoms started this morning. He states his blood sugar was 360. He gave himself 5 units of NovoLog prior to arrival. On arrival his blood sugar in 170s. No illnesses prior to current symptoms. No sick contacts. He does take Levemir 5 to 10 units at night and has not missed any doses. Allergies and Home Medications Allergies Coded Allergies: Penicillins (Verified Allergy, Unknown, 05/23/06) Patient Home Medication List Home Medication List Reviewed: Yes Insulin Aspart (Novolog) 100 Unit/1 Ml Susp, UNIT SQ TIDAC, (Reported) Entered as Reported by: NICOLLE MUNSON on 11/28/19 1021 Insulin Determir (Levemir) 1,000 Units/10 Ml Soln, 5-10 UNITS SQ HS, (Reported) Entered as Reported by: NICOLLE MUNSON on 11/28/19 1021 Lisinopril (Lisinopril) 20 Mg Tablet, 20 MG PO DAILY, (Reported) Entered as Reported by: YUMIKO SNOW on 02/16/22 0926 Metoclopramide HCl (Metoclopramide HCl) 10 Mg Tablet, 10 MG PO ACHS, (Reported) Entered as Reported by: DANNIE PERDOMO on 01/11/21 0952 Ondansetron HCl (Ondansetron HCl) 8 Mg Tablet, 8 MG PO Q6H PRN for NAUSEA/VOMITING, (Reported) Entered as Reported by: YUMIKO SNOW on 07/21/22 1446 Pantoprazole Sodium (Pantoprazole Sodium) 40 Mg Tablet.dr, 40 MG PO DAILY, (Reported) Entered as Reported by: DANNIE PERDOMO on 01/11/21 0952 Review of Systems Review of Systems Constitutional: no symptoms reported EENTM: no symptoms reported Respiratory: no symptoms reported Cardiovascular: no symptoms reported Gastrointestinal: abdominal pain, nausea, vomiting Genitourinary: no symptoms reported Musculoskeletal: no symptoms reported Skin: no symptoms reported Psychiatric/Neurological: No Symptoms Reported Hematologic/Lymphatic: No Symptoms Reported Immunological/Allergic: no symptoms reported Past Gbrjgeb-Meqnup-Fseatr Hx Patient Social History Tobacco Use?: Yes Use of E-Cig and/or Vaping dev: Yes Substance use?: No Alcohol Use?: No Immunizations Up To Date Tetanus Booster (TDap): Unknown PED Vaccines UTD: No First/Initial COVID19 Vaccinat: 01/03 Second COVID19 Vaccination Pierre: 02/03 Third COVID19 Vaccination Date: 01/03 Seasonal Allergies Seasonal Allergies: No Past Medical History Surgery/Hospitalization HX: TYPE 1 DM, DKA Surgeries: No Respiratory: Yes Pneumonia Currently Using CPAP: No Currently Using BIPAP: No Cardiac: Yes (CARDIOMYOPATHY DX 2017) Cardiomyopathy, Hypertension Neurological: No Reproductive Disorders: No Sexually Transmitted Disease: No HIV/AIDS: No Genitourinary: No Gastrointestinal: Yes (GASTROPARESIS) Gastroesophageal Reflux Musculoskeletal: No Endocrine: Yes (DX AGE 11, [place] 2001; MULTIPLE ADMITS FOR DKA) Diabetes, Insulin dep Loss of Vision: Denies Hearing Impairment: Denies Cancer: No Did You Recieve Any Treatments: No Psychosocial: Yes (Frequent marijuana use) Integumentary: Yes (WOUNDS TO LOWER LEGS-- REQUIRED WOUND CARE CLINIC TREATMENT) Blood Disorders: No Adverse Reaction/Blood Tranf: No Family Medical History Reviewed Nursing Family Hx Cardiovascular disease 19 FATHER Hypertension 19 FATHER No Pertinent Family Hx Physical Exam Vital Signs Vital Signs - First Documented 09/17/22 13:20 Temp 36.6 Pulse 94 Resp 16 B/P (MAP) 164/95 (118) Pulse Ox 99 O2 Delivery Room Air Capillary Refill : Less Than 3 Seconds Height, Weight, BMI Height: 5'11.00" Weight: 126lbs. 0.0oz. 57.397393rf; 17.00 BMI Method:Stated General Appearance: No Apparent Distress HEENT: PERRL/EOMI, Normal ENT Inspection, Other (Dry mucous membranes) Neck: Normal Inspection, Non Tender, Supple Respiratory: Chest Non Tender, Lungs Clear, Normal Breath Sounds, No Accessory Muscle Use, No Respiratory Distress Cardiovascular: Regular Rate, Rhythm, No Edema, No Gallop, No JVD, No Murmur, Normal Peripheral Pulses Gastrointestinal: Normal Bowel Sounds, Soft, Tenderness (Mild tenderness in the epigastric region. Voluntary guarding without any rebound tenderness. No mass organomegaly. No skin changes.) Extremity: Normal Capillary Refill, Normal Inspection, Normal Range of Motion, No Calf Tenderness Neurologic/Psychiatric: Alert, Oriented x3, Normal Mood/Affect Skin: Warm/Dry, Pallor Progress/Results/Core Measures Suspected Sepsis SIRS Temperature: Pulse: 94 Respiratory Rate: 16 Laboratory Tests 09/17/22 13:30: White Blood Count 10.1 Blood Pressure 164 /95 Mean: 118 Laboratory Tests 09/17/22 13:30: Creatinine 1.01, Platelet Count 348, Total Bilirubin 0.5 Results/Orders Lab Results Laboratory Tests Test 09/17/22 13:30 Range/Units White Blood Count 10.1 4.3-11.0 10^3/uL Red Blood Count 4.55 4.30-5.52 10^6/uL Hemoglobin 12.2 L 13.3-17.7 g/dL Hematocrit 36 L 40-54 % Mean Corpuscular Volume 79 L 80-99 fL Mean Corpuscular Hemoglobin 27 25-34 pg Mean Corpuscular Hemoglobin Concent 34 32-36 g/dL Red Cell Distribution Width 13.7 10.0-14.5 % Platelet Count 348 130-400 10^3/uL Mean Platelet Volume 9.1 9.0-12.2 fL Immature Granulocyte % (Auto) 0 % Neutrophils (%) (Auto) 76 H 42-75 % Lymphocytes (%) (Auto) 16 12-44 % Monocytes (%) (Auto) 7 0-12 % Eosinophils (%) (Auto) 1 0-10 % Basophils (%) (Auto) 0 0-10 % Neutrophils # (Auto) 7.7 1.8-7.8 10^3/uL Lymphocytes # (Auto) 1.6 1.0-4.0 10^3/uL Monocytes # (Auto) 0.7 0.0-1.0 10^3/uL Eosinophils # (Auto) 0.1 0.0-0.3 10^3/uL Basophils # (Auto) 0.0 0.0-0.1 10^3/uL Immature Granulocyte # (Auto) 0.0 0.0-0.1 10^3/uL Sodium Level 139 135-145 MMOL/L Potassium Level 3.4 L 3.6-5.0 MMOL/L Chloride Level 106 98-107 MMOL/L Carbon Dioxide Level 20 L 21-32 MMOL/L Anion Gap 13 5-14 MMOL/L Blood Urea Nitrogen 8 7-18 MG/DL Creatinine 1.01 0.60-1.30 MG/DL Estimat Glomerular Filtration Rate 101 BUN/Creatinine Ratio 8 Glucose Level 168 H 70-105 MG/DL Calcium Level 9.4 8.5-10.1 MG/DL Corrected Calcium 9.2 8.5-10.1 MG/DL Total Bilirubin 0.5 0.1-1.0 MG/DL Aspartate Amino Transf (AST/SGOT) 14 5-34 U/L Alanine Aminotransferase (ALT/SGPT) 9 0-55 U/L Alkaline Phosphatase 94 40-136 U/L Total Protein 7.9 6.4-8.2 GM/DL Albumin 4.3 3.2-4.5 GM/DL Lipase 57 8-78 U/L Beta-Hydroxybutyrate (Chem panel) 0.08 0.00-0.27 MMOL/L My Orders Orders - COOPER SOSA DO Lipase (09/17/22 13:41) Comprehensive Metabolic Panel (09/17/22 13:41) Cbc With Automated Diff (09/17/22 13:41) Ondansetron Injection (Zofran Injectio (09/17/22 13:45) Beta Hydroxybutyrate (09/17/22 13:42) Medications Given in ED Current Medications Medications Dose Ordered Sig/Luis Route Start Time Stop Time Status Last Admin Dose Admin Ondansetron HCl 8 mg ONCE ONCE IVP 09/17/22 13:45 09/17/22 13:46 DC 09/17/22 13:54 8 MG Vital Signs/I&O 09/17/22 13:20 Temp 36.6 Pulse 94 Resp 16 B/P (MAP) 164/95 (118) Pulse Ox 99 O2 Delivery Room Air Capillary Refill : Less Than 3 Seconds Blood Pressure Mean: 118 Point of Care Testing Finger Stick Blood Glucose: 171 Departure Communication (Admissions) Patient is hemodynamically stable with a benign exam. He is not tachycardic, tachypneic. He does have some mild diffuse abdominal tenderness without any guarding and certainly nonsurgical abdominal exam. No focal evidence for bacterial infection that would require antibiotics.. I think he likely has a viral type GI bug which is certainly going around recently. He is given Zofran here and tolerating p.o. prior to discharge. There is no indication for DKA as he has no acidosis, normal anion gap with no ketones in his blood. He is stable for discharge at this time. Impression Primary Impression: Nausea and vomiting Qualified Codes: R11.2 - Nausea with vomiting, unspecified Disposition: 01 HOME, SELF-CARE Condition: Stable Departure-Patient Inst. Referrals: [facility] [place] (PCP/Family) Primary Care Physician Patient Instructions: Diabetes Type 1, Adult (DC), Nausea and Vomiting, Adult (DC) Add. Discharge Instructions: Medicine as prescribed by dissolving it under your tongue. Watch your symptoms closely. You will need to increase your fluids at home including electrolyte containing solution such as Pedialyte or Gatorade. There is no indication that you are in DKA currently though you are at high risk for DKA with any GI type illness. Follow-up with your primary doctor on Monday or Monday should your symptoms persist. Return to the emergency department for any severe concerns All discharge instructions reviewed with patient and/or family. Voiced understanding. Scripts Ondansetron (Ondansetron Odt) 8 Mg Tab.rapdis 8 MG SL Q6H PRN for NAUSEA/VOMITING for 3 Days, #12 TAB Prov: COOPER SOSA DO 09/17/22 COOPER SOSA DO Sep 17, 2022 13:46
[2022-09-17 13:50] LABS: BASOPHILS % (AUTO) 0 % (0-10); EOSINOPHILS # (AUTO) 0.1 10^3/uL (0.0-0.3); EOSINOPHILS % (AUTO) 1 % (0-10); HEMATOCRIT 36 % (40-54); HEMOGLOBIN 12.2 g/dL (13.3-17.7); LYMPHOCYTES # (AUTO) 1.6 10^3/uL (1.0-4.0); LYMPHOCYTES % (AUTO) 16 % (12-44); MEAN CORPUSCULAR HEMOGLOBIN 27 pg (25-34); MEAN CORPUSCULAR HGB CONC 34 g/dL (32-36); MEAN CORPUSCULAR VOLUME 79 fL (80-99); MEAN PLATELET VOLUME 9.1 fL (9.0-12.2); MONOCYTES # (AUTO) 0.7 10^3/uL (0.0-1.0); MONOCYTES % (AUTO) 7 % (0-12); NEUTROPHILS # (AUTO) 7.7 10^3/uL (1.8-7.8); NEUTROPHILS % (AUTO) 76 % (42-75); PLATELET COUNT 348 10^3/uL (130-400); WHITE BLOOD COUNT 10.1 10^3/uL (4.3-11.0)
[2022-09-17 13:54] LABS: ALBUMIN 4.3 GM/DL (3.2-4.5); POTASSIUM 3.4 MMOL/L (3.6-5.0)
[2022-09-17 13:56] LABS: CALCIUM 9.4 MG/DL (8.5-10.1)
[2022-09-17 13:57] LABS: TOTAL PROTEIN 7.9 GM/DL (6.4-8.2)
[2022-09-17 13:59] LABS: BILIRUBIN,TOTAL 0.5 MG/DL (0.1-1.0)
[2022-09-17 14:01] LABS: CREATININE SERUM 1.01 MG/DL (0.60-1.30)
[2022-09-17] MEDS ORDERED: ONDA8TAB13 SL (14:27)
[2022-09-17] MEDS ORDERED: NS IV 1000 ML 1,000 ML IV SCH (14:45)
[2022-09-17 15:25] VITALS: BP 168/102
== END 2022-09-17 15:25 | disposition home or self-care (01) ==
LOC: EDUNIT# 13:14 → ER 13:15
DX: R11.2 Nausea with vomiting, unspecified (principal); R10.84 Generalized abdominal pain; E10.9 Type 1 diabetes mellitus without complications; F17.290 Nicotine dependence, other tobacco product, uncomplicated; Z79.4 Long term (current) use of insulin; Z28.310 Unvaccinated for COVID-19
CPT/HCPCS: 36415; 80053; 82010; 83690; 85025

== ENCOUNTER 2022-09-18 16:18 | Observation (INO) | payer OTHER ==
[~2022-09-18] VITALS: Ht 180.3 cm; Wt 55.3 kg
[~2022-09-18 16:18] MED LIST changes: +ONDA8TAB13 SL
--- NOTE | 2022-09-18 16:32 | ED General ---
General Chief Complaint: Glucose Problems Stated Complaint: VOMITING/WEAKNESS/HIGH BLOOD SUGAR Nursing Triage Note: PT SEEN HERE YESTERDAY FOR VOMITING AND HIGH BLOOD SUGAR AND IS HERE TODAY FOR THE SAME THING. Source of Information: Patient Exam Limitations: No Limitations History of Present Illness Date Seen by Provider: Sep 18, 2022 Time Seen by Provider: 16:30 Initial Comments Patient is a 32-year-old male who presents to the emergency department for evaluation of 2 days of nausea and vomiting. Patient has a history of type 1 diabetes. States his blood sugar was over 400 at home prior to arrival to the emergency department. Patient was seen here yesterday where he was resuscitated with IV fluids and ultimately discharged home as he was non-DKA at that time. Patient states his symptoms have persisted unabated. He has been taking the prescribed Zofran with no improvement in symptoms. Denies any fever or diarrhea. Allergies and Home Medications Allergies Coded Allergies: Penicillins (Verified Allergy, Unknown, 05/23/06) Patient Home Medication List Home Medication List Reviewed: Yes Insulin Aspart (Novolog) 100 Unit/1 Ml Susp, UNIT SQ TIDAC, (Reported) Entered as Reported by: NICOLLE MUNSON on 11/28/19 1021 Insulin Determir (Levemir) 1,000 Units/10 Ml Soln, 5-10 UNITS SQ HS, (Reported) Entered as Reported by: NICOLLE MNUSON on 11/28/19 1021 Lisinopril (Lisinopril) 20 Mg Tablet, 20 MG PO DAILY, (Reported) Entered as Reported by: YUMIKO SNOW on 02/16/22 0926 Metoclopramide HCl (Metoclopramide HCl) 10 Mg Tablet, 10 MG PO ACHS, (Reported) Entered as Reported by: DANNIE PERDOMO on 01/11/21 0952 Ondansetron (Ondansetron Odt) 8 Mg Tab.rapdis, 8 MG SL Q6H PRN for NAUSEA/VOMITING Prescribed by: COOPER SOSA MD on 09/17/22 1427 Ondansetron HCl (Ondansetron HCl) 8 Mg Tablet, 8 MG PO Q6H PRN for NAUSEA/VOMITING, (Reported) Entered as Reported by: YUMIKO SNOW on 07/21/22 1446 Pantoprazole Sodium (Pantoprazole Sodium) 40 Mg Tablet.dr, 40 MG PO DAILY, (Reported) Entered as Reported by: DANNIE PERDOMO on 01/11/21 0952 Review of Systems Review of Systems Constitutional: no symptoms reported EENTM: no symptoms reported Respiratory: no symptoms reported Cardiovascular: no symptoms reported Gastrointestinal: see HPI, nausea, vomiting Genitourinary: no symptoms reported Musculoskeletal: no symptoms reported Skin: no symptoms reported Past Hdjyezn-Selupr-Iemhra Hx Immunizations Up To Date Tetanus Booster (TDap): Unknown PED Vaccines UTD: No First/Initial COVID19 Vaccinat: 01/03 Second COVID19 Vaccination Pierre: 02/03 Third COVID19 Vaccination Date: 01/03 Seasonal Allergies Seasonal Allergies: No Past Medical History Surgery/Hospitalization HX: TYPE 1 DM, DKA Surgeries: No Respiratory: Yes Pneumonia Currently Using CPAP: No Currently Using BIPAP: No Cardiac: Yes (CARDIOMYOPATHY DX 2016) Cardiomyopathy, Hypertension Neurological: No Reproductive Disorders: No Sexually Transmitted Disease: No HIV/AIDS: No Genitourinary: No Gastrointestinal: Yes (GASTROPARESIS) Gastroesophageal Reflux Musculoskeletal: No Endocrine: Yes (DX AGE 11, [place] 2001; MULTIPLE ADMITS FOR DKA) Diabetes, Insulin dep Loss of Vision: Denies Hearing Impairment: Denies Cancer: No Did You Recieve Any Treatments: No Psychosocial: Yes (Frequent marijuana use) Integumentary: Yes (WOUNDS TO LOWER LEGS-- REQUIRED WOUND CARE CLINIC TREATMENT) Blood Disorders: No Adverse Reaction/Blood Tranf: No Family Medical History Cardiovascular disease 19 FATHER Hypertension 19 FATHER No Pertinent Family Hx Physical Exam Vital Signs Vital Signs - First Documented 09/18/22 16:29 Temp 35.8 Pulse 129 Resp 16 B/P (MAP) 159/95 (116) Pulse Ox 99 O2 Delivery Room Air Capillary Refill : Less Than 3 Seconds Height, Weight, BMI Height: 5'11.00" Weight: 126lbs. 0.0oz. 57.372916an; 17.00 BMI Method:Stated General Appearance: Mild Distress HEENT: TMs Normal, Normal ENT Inspection, Pharynx Normal Neck: Non Tender, Supple Respiratory: Lungs Clear, Normal Breath Sounds Cardiovascular: Tachycardia Gastrointestinal: Non Tender, Soft Neurologic/Psychiatric: Alert, Oriented x3, No Motor/Sensory Deficits, Normal Mood/Affect Skin: Normal Color, Warm/Dry Progress/Results/Core Measures Suspected Sepsis SIRS Temperature: Pulse: 129 Respiratory Rate: 16 Laboratory Tests 12/4/22 16:36: White Blood Count 16.4H Blood Pressure 159 /95 Mean: 116 Laboratory Tests 09/18/22 16:36: Creatinine 1.50H, Platelet Count 419H, Total Bilirubin 0.8 Results/Orders Lab Results Laboratory Tests Test 09/18/22 16:31 09/18/22 16:36 09/18/22 17:04 09/18/22 18:04 Range/Units Glucometer 492 *H 498 *H 70-110 MG/DL White Blood Count 16.4 H 4.3-11.0 10^3/uL Red Blood Count 4.47 4.30-5.52 10^6/uL Hemoglobin 12.1 L 13.3-17.7 g/dL Hematocrit 35 L 40-54 % Mean Corpuscular Volume 79 L 80-99 fL Mean Corpuscular Hemoglobin 27 25-34 pg Mean Corpuscular Hemoglobin Concent 34 32-36 g/dL Red Cell Distribution Width 14.3 10.0-14.5 % Platelet Count 419 H 130-400 10^3/uL Mean Platelet Volume 9.3 9.0-12.2 fL Immature Granulocyte % (Auto) 0 % Neutrophils (%) (Auto) 88 H 42-75 % Lymphocytes (%) (Auto) 8 L 12-44 % Monocytes (%) (Auto) 4 0-12 % Eosinophils (%) (Auto) 0 0-10 % Basophils (%) (Auto) 0 0-10 % Neutrophils # (Auto) 14.3 H 1.8-7.8 10^3/uL Lymphocytes # (Auto) 1.3 1.0-4.0 10^3/uL Monocytes # (Auto) 0.6 0.0-1.0 10^3/uL Eosinophils # (Auto) 0.0 0.0-0.3 10^3/uL Basophils # (Auto) 0.0 0.0-0.1 10^3/uL Immature Granulocyte # (Auto) 0.1 0.0-0.1 10^3/uL Neutrophils % (Manual) 91 % Lymphocytes % (Manual) 4 % Monocytes % (Manual) 5 % Clovis Cells MARKED Crenated Cell Acanthocytes MODERATE Sodium Level 134 L 135-145 MMOL/L Potassium Level 4.0 3.6-5.0 MMOL/L Chloride Level 96 L 98-107 MMOL/L Carbon Dioxide Level 10 L 21-32 MMOL/L Anion Gap 28 H 5-14 MMOL/L Blood Urea Nitrogen 19 H 7-18 MG/DL Creatinine 1.50 H 0.60-1.30 MG/DL Estimat Glomerular Filtration Rate 63 BUN/Creatinine Ratio 13 Glucose Level 556 *H 70-105 MG/DL Calcium Level 9.3 8.5-10.1 MG/DL Corrected Calcium 9.1 8.5-10.1 MG/DL Total Bilirubin 0.8 0.1-1.0 MG/DL Aspartate Amino Transf (AST/SGOT) 14 5-34 U/L Alanine Aminotransferase (ALT/SGPT) 9 0-55 U/L Alkaline Phosphatase 95 40-136 U/L Total Protein 7.9 6.4-8.2 GM/DL Albumin 4.3 3.2-4.5 GM/DL Lipase 33 8-78 U/L Beta-Hydroxybutyrate (Chem panel) 7.49 H 0.00-0.27 MMOL/L Venous Blood pH 7.35 7.31-7.41 Venous Blood Partial Pressure CO2 24 L 40-52 MMHG Venous Blood HCO3 13 L 22-28 MMOL/L My Orders Orders - LUIS ANGEL LOERA APRN Cbc With Automated Diff (09/18/22 16:32) Comprehensive Metabolic Panel (09/18/22 16:32) Iv/Invasive Line Insertion .IV INSERT (09/18/22 16:32) Beta Hydroxybutyrate (09/18/22 16:32) Urinalysis (09/18/22 16:32) Lipase (09/18/22 16:32) Venous Blood Gas (09/18/22 16:32) Lactated Ringers (Lr 1000 Ml Iv Solution (09/18/22 16:45) Prochlorperazine Injection (Compazine In (09/18/22 16:45) Manual Differential (09/18/22 16:36) Lactated Ringers (Lr 1000 Ml Iv Solution (09/18/22 17:45) Insulin Regular Drip (Myxredlin 100 Unit (09/18/22 17:45) Ed Admission (Communication) (09/18/22 17:53) Medications Given in ED Current Medications Medications Dose Ordered Sig/Luis Route Start Time Stop Time Status Last Admin Dose Admin Prochlorperazine Edisylate 10 mg ONCE ONCE IV 09/18/22 16:45 09/18/22 16:46 DC 09/18/22 16:43 10 MG Vital Signs/I&O 09/18/22 16:29 Temp 35.8 Pulse 129 Resp 16 B/P (MAP) 159/95 (116) Pulse Ox 99 O2 Delivery Room Air Capillary Refill : Less Than 3 Seconds Blood Pressure Mean: 116 Progress Note : Progress Note Patient is nontoxic on exam. He does have dry mucous membranes consistent with dehydration. Vital signs notable for tachycardia. No Kussmaul respirations noted at the time of my exam. Laboratory evaluation notable for elevated gap and decreased bicarb consistent with DKA. Patient's glucose is over 500. Patient was given 2000 mL of LR and was placed on an insulin drip. Will be admitted to the hospital for further evaluation and treatment. Hospitalist kindly agreed to admit. Patient updated on plan of care and understanding verbalized. Departure Impression Primary Impression: DKA (diabetic ketoacidosis) Qualified Codes: E10.10 - Type 1 diabetes mellitus with ketoacidosis without coma Disposition: ADMITTED INPATIENT Condition: Critical Admissions Decision to Admit Reason: Admit from ER (General) Decision to Admit/Date: Sep 18, 2022 Time/Decision to Admit Time: 17:45 Departure-Patient Inst. Referrals: [facility] (PCP/Family) Primary Care Physician LUIS ANGEL LOERA APRN Sep 18, 2022 16:32
[2022-09-18] MEDS ORDERED: LACTATED RINGERS 1,000 ML IV SCH ×3 (16:45→22:15)
[2022-09-18] MEDS ORDERED: PROCHLORPERAZINE 10 MG/2ML INJ (COMPAZINE) IV ONE (16:45)
[2022-09-18 16:49] LABS: BASOPHILS % (AUTO) 0 % (0-10); EOSINOPHILS % (AUTO) 0 % (0-10); HEMATOCRIT 35 % (40-54); HEMOGLOBIN 12.1 g/dL (13.3-17.7); LYMPHOCYTES # (AUTO) 1.3 10^3/uL (1.0-4.0); LYMPHOCYTES % (AUTO) 8 % (12-44); MEAN CORPUSCULAR HEMOGLOBIN 27 pg (25-34); MEAN CORPUSCULAR HGB CONC 34 g/dL (32-36); MEAN CORPUSCULAR VOLUME 79 fL (80-99); MEAN PLATELET VOLUME 9.3 fL (9.0-12.2); MONOCYTES # (AUTO) 0.6 10^3/uL (0.0-1.0); MONOCYTES % (AUTO) 4 % (0-12); NEUTROPHILS # (AUTO) 14.3 10^3/uL (1.8-7.8); NEUTROPHILS % (AUTO) 88 % (42-75); PLATELET COUNT 419 10^3/uL (130-400); WHITE BLOOD COUNT 16.4 10^3/uL (4.3-11.0)
[2022-09-18 17:00] LABS: ALBUMIN 4.3 GM/DL (3.2-4.5)
[2022-09-18 17:02] LABS: CALCIUM 9.3 MG/DL (8.5-10.1)
[2022-09-18 17:03] LABS: TOTAL PROTEIN 7.9 GM/DL (6.4-8.2)
[2022-09-18 17:05] LABS: BILIRUBIN,TOTAL 0.8 MG/DL (0.1-1.0)
[2022-09-18 17:07] LABS: CREATININE SERUM 1.5 MG/DL (0.60-1.30)
[2022-09-18 17:18] LABS: LYMPHOCYTES % (MANUAL) 4 %; MONOCYTES % (MANUAL) 5 %; NEUTROPHILS % (MANUAL) 91 %
[2022-09-18 17:19] LABS: ACANTHOCYTES MODERATE; BURR CELLS MARKED
[2022-09-18] MEDS ORDERED: inSUlin (REGULAR) HUMAN 1 UNIT/0.01 ML (CHARGE PER UNIT) SC ONE (17:45)
[2022-09-18 18:32] LABS: BILIRUBIN,URINE NEGATIVE (NEGATIVE); CLARITY,URINE CLEAR; COLOR,URINE YELLOW; GLUCOSE, URINE (UA) 3+ (NEGATIVE); KETONES,URINE 2+ (NEGATIVE); LEUKOCYTE ESTERASE ,URINE NEGATIVE (NEGATIVE); NITRITE,URINE NEGATIVE (NEGATIVE); PROTEIN,URINE 2+ (NEGATIVE)
[2022-09-18 18:39] LABS: BACTERIA,URINE NEGATIVE /HPF; RBC,URINE 0-2 /HPF; WBC,URINE 0-2 /HPF
[2022-09-18] MEDS ORDERED: LORazepam INJ 2 MG/ML (ATIVAN) VIAL IVP PRN (20:45)
[2022-09-18] MEDS ORDERED: polyethylene glycoL POWDER 17 GM (MIRALAX) PACK PO PRN (20:45)
[2022-09-18] MEDS ORDERED: ACETAMINOPHEN 325 MG TABLET PO PRN (20:45)
[2022-09-18] MEDS ORDERED: LORazepam 0.5 MG (ATIVAN) TABLET PO PRN (20:45)
[2022-09-18] MEDS ORDERED: POTASSIUM CL 10MEQ/50ML IVPB 50 ML IV SCH (20:45)
[2022-09-18] MEDS ORDERED: BISACODYL 10 MG SUPP (DULCOLAX) PR PRN (20:45)
[2022-09-18] MEDS ORDERED: MILK OF MAGNESIA 400 MG/5 ML 30 ML UDC PO PRN (20:45)
[2022-09-18] MEDS ORDERED: diphenhydrAMINE 25 MG TAB (BENADRYL) PO PRN (20:45)
[2022-09-18] MEDS ORDERED: LACTULOSE SYRUP 10GM/15ML (ENULOSE) 30ML UDC PO PRN (20:45)
[2022-09-18] MEDS ORDERED: ANTACID SUSP 30 ML UDC (MYLANTA) PO PRN (20:45)
[2022-09-18] MEDS ORDERED: HYDROmorphone 2 MG/ML VIAL (DILAUDID) IV PRN (20:45)
[2022-09-18] MEDS ORDERED: CALCIUM CARBONATE 500 MG (TUMS) TAB.CHEW PO PRN (20:45)
[2022-09-18] MEDS ORDERED: NS IV 1000 ML 1,000 ML IV SCH (20:45)
[2022-09-18] MEDS ORDERED: MELATONIN 3 MG TABLET PO PRN (20:45)
[2022-09-18] MEDS ORDERED: diphenhydrAMINE 50 MG/ML INJ (BENADRYL) IVP PRN (20:45)
[2022-09-18] MEDS ORDERED: NS IV 500 ML 500 ML IV PRN (20:45)
[2022-09-18] MEDS ORDERED: SCOPOLAMINE 1.5 MG (TRANSDERM-SCOP) PATCH TD ONE (20:45)
[2022-09-18] MEDS ORDERED: ONDANSETRON 4 MG (ZOFRAN) ORAL DISSOLVE TAB PO PRN (20:45)
[2022-09-18] MEDS: DOCUSATE SODIUM 100 MG (COLACE) CAP PO SCH (21:03)
[2022-09-18] MEDS: SENNOSIDES 8.6 MG (SENOKOT) TAB PO SCH (21:03)
[2022-09-18] MEDS ORDERED: POTASSIUM CL 10MEQ/50ML IVPB 50 ML IV ONE (21:14)
[2022-09-18] MEDS ORDERED: 1/2 NS IV SOLUTION 1,000 ML IV ONE (21:14)
[2022-09-18] MEDS: 1/2 NS IV SOLUTION 1,000 ML IV SCH (21:16)
[2022-09-18 21:50] LABS: POTASSIUM 4.1 MMOL/L (3.6-5.0)
[2022-09-18 21:51] LABS: CALCIUM 9.4 MG/DL (8.5-10.1)
[2022-09-18 21:56] LABS: CREATININE SERUM 1.4 MG/DL (0.60-1.30)
--- NOTE | 2022-09-18 22:13 | Tele-ICU Progress Note ---
Progress Note 32M with DM admitted for DKA. Initially seen yesterday om ED for generalized weakness, nausea, vomiting, "feeling like he was in DKA". At that time, glucose 160, gap 13 and bicarb 20, b-hydroxy 0.08. Glucose had been 360 in the AM, gave novolog 5 units prior to ED presentation. He was hydrated and discharged. Returned today with progressive symptoms. Found to have glucose 558, b-hydroxy 7.49, bicarb 10, gap 28. - DKA: insulin gtt with DKA protocol. Unclear whether there is a provoking factor, or if this is just DKA. Symptoms started abruptly yesterday, without prodromol illness. Not in DKA at that time, but in hindsight labs were borderline. Possibly symptomatic before lab changes. Lipase was normal. Will check KUB to exclude SBO. Patient does endorse this is his normal DKA symptoms. A total of 13 minutes of critical care time was devoted to this patient, including reviewing this patient's available data, including medical history, events of note and test results. I have overseen the activities of other members of the care team under my direct supervision during events of the note . This was required to treat and/or prevent further deterioration of critical care conditions ( as above ). Service provided to a patient admitted to ICU bed via interactive E-CARE system with real-time audio and video telecommunications from [facility]- ICU hub located in [place], [place] Focused Exam Height, Weight, BMI Height: 5'11.00" Weight: 126lbs. 0.0oz. 57.724981zv; 16.88 BMI Method:Stated CAMILO GUILLEN MD Sep 18, 2022 22:13
[2022-09-18] MEDS ORDERED: ONDANSETRON 4 MG/2 ML (SDV) Z0FRAN IVP ONE (22:15)
[2022-09-18] MEDS: POTASSIUM CL 10MEQ/50ML IVPB 50 ML IV SCH (22:23)
[2022-09-18] MEDS ORDERED: ONDANSETRON 4 MG/2 ML (SDV) Z0FRAN ONE (22:41)
[2022-09-18] MEDS ORDERED: SCOPOLAMINE 1.5 MG (TRANSDERM-SCOP) PATCH ONE (22:41)
[2022-09-18] MEDS: ENOXAPARIN INJECTION 30 MG/0.3 ML SYR SC SCH (22:44)
[2022-09-18] MEDS: D5 1/2 NS 1000 ML IV SOLUTION 1,000 ML IV SCH (23:01)
[2022-09-18] MEDS: METOCLOPRAMIDE INJ 10 MG/2 ML (REGLAN) IVP SCH (23:55)
[2022-09-19] MEDS: 1/2 NS IV SOLUTION 1,000 ML IV SCH ×6 (00:45→22:11)
[2022-09-19 01:56] LABS: POTASSIUM 3.9 MMOL/L (3.6-5.0)
[2022-09-19 01:57] LABS: CALCIUM 8.2 MG/DL (8.5-10.1)
[2022-09-19] MEDS: POTASSIUM CL 10MEQ/50ML IVPB 50 ML IV SCH ×6 (01:59→11:59)
[2022-09-19 02:01] LABS: CREATININE SERUM 1.03 MG/DL (0.60-1.30)
[2022-09-19] MEDS: D5 1/2 NS 1000 ML IV SOLUTION 1,000 ML IV SCH ×4 (02:48→17:25)
[2022-09-19 04:30] LABS: BASOPHILS % (AUTO) 0 % (0-10); EOSINOPHILS % (AUTO) 0 % (0-10); HEMATOCRIT 28 % (40-54); HEMOGLOBIN 9.4 g/dL (13.3-17.7); LYMPHOCYTES # (AUTO) 2.5 10^3/uL (1.0-4.0); LYMPHOCYTES % (AUTO) 19 % (12-44); MEAN CORPUSCULAR HEMOGLOBIN 27 pg (25-34); MEAN CORPUSCULAR HGB CONC 34 g/dL (32-36); MEAN CORPUSCULAR VOLUME 80 fL (80-99); MEAN PLATELET VOLUME 9.2 fL (9.0-12.2); MONOCYTES # (AUTO) 1.2 10^3/uL (0.0-1.0); MONOCYTES % (AUTO) 9 % (0-12); NEUTROPHILS # (AUTO) 9.4 10^3/uL (1.8-7.8); NEUTROPHILS % (AUTO) 71 % (42-75); PLATELET COUNT 263 10^3/uL (130-400); WHITE BLOOD COUNT 13.1 10^3/uL (4.3-11.0)
[2022-09-19 04:48] LABS: ALBUMIN 3.1 GM/DL (3.2-4.5); BILIRUBIN,TOTAL 0.4 MG/DL (0.1-1.0); CALCIUM 7.9 MG/DL (8.5-10.1); CREATININE SERUM 0.89 MG/DL (0.60-1.30); MAGNESIUM 1.8 MG/DL (1.6-2.4); PHOSPHORUS 2.3 MG/DL (2.3-4.7); POTASSIUM 3.7 MMOL/L (3.6-5.0); TOTAL PROTEIN 5.4 GM/DL (6.4-8.2)
[2022-09-19] MEDS: MAGNESIUM 1 GM/100 ML IVPB 100 ML IV SCH (05:07)
[2022-09-19] MEDS: KCL 20 MEQ TAB (K-DUR) PO SCH (05:08)
[2022-09-19] MEDS: METOCLOPRAMIDE INJ 10 MG/2 ML (REGLAN) IVP SCH ×4 (05:16→23:49)
[2022-09-19] MEDS: ONDANSETRON 4 MG/2 ML (SDV) Z0FRAN IV PRN ×2 (06:20→19:45)
[2022-09-19] MEDS: SENNOSIDES 8.6 MG (SENOKOT) TAB PO SCH ×2 (07:47→21:11)
[2022-09-19] MEDS: DOCUSATE SODIUM 100 MG (COLACE) CAP PO SCH ×2 (07:47→21:11)
--- NOTE | 2022-09-19 07:48 | Diagnostic Imaging Report ---
INDICATION: Diabetic ketoacidosis, nausea, vomiting. TECHNIQUE: Supine and upright radiograph of the abdomen 12:44 AM CORRELATION STUDY: None FINDINGS: Imaging of the abdomen demonstrates the bowel gas pattern to be unremarkable and without evidence for obstruction. No significant differential air-fluid levels. No evidence for free air. No pathologic intraabdominal calcifications. IMPRESSION: 1. Non-obstructive appearing bowel gas pattern. Dictated by: Dictated on workstation # [id number]
[2022-09-19 08:34] LABS: CALCIUM 8.1 MG/DL (8.5-10.1); CREATININE SERUM 0.82 MG/DL (0.60-1.30); POTASSIUM 3.3 MMOL/L (3.6-5.0)
--- NOTE | 2022-09-19 09:01 | Diagnostic Imaging Report ---
INDICATION: Dyspnea. Comparison is made with prior examination of 02/15/2022. FINDINGS: The heart size, mediastinal configuration, and pulmonary vascularity are within normal limits. There is no pleural effusion, pneumothorax, or pneumonia. The osseous structures are unremarkable. IMPRESSION: No acute cardiopulmonary abnormality. Dictated by: Dictated on workstation # [id number]
[2022-09-19] MEDS: PROCHLORPERAZINE 10 MG/2ML INJ (COMPAZINE) IV PRN (09:37)
--- NOTE | 2022-09-19 11:25 | Tele-ICU Progress Note ---
Subjective Date Seen by a Provider: Sep 19, 2022 Time Seen by a Provider: 11:25 Subjective/Events-last exam HPI/Events of Note This patient is admitted with diabetic ketoacidosis currently on insulin drip. He still has a nausea. I have prescribed Compazine in addition to Zofran. His anion gap is closing but CO2 is still low hence we will continue low-dose insulin drip and repeat BMP in about 4 hours. Impression 1. Diabetic ketoacidosis improving 2. Nausea and vomiting due to DKA 3. Acute kidney injury slowly improving. Recommendations 1.continue insulin drip for now 2. Will give Compazine in addition to the Zofran. 3. Continue hydration. 4. Continue monitor magnesium and phosphate levels. 5. We will repeat another BMP this afternoon Diagnosis: __X_ patient provided consent for the telehealth visit ___patient is not able to provide consent for the telehealth visit, service provided to critically care patient using implied consent doctrine. A total of _20 _ minutes of critical care time was devoted to this patient, including reviewing this patient's available data, including medical history, events of note and test results. I have overseen the activities of other members of the care team under my direct supervision during events of the note . This was required to treat and/or prevent further deterioration of critical care conditions ( as above ). Service provided to a patient admitted to ICU bed via interactive E-CARE system with real-time audio and video telecommunications from [facility]-ICU hub located in [place], [place] Interventions Intermediate-Other: dka Page 1 of 1 CHEMO WEISS [facility] This is a permanent part of the medical record. Do not discard. 09/19/2022 12:22 THC Physician - Brief Progress Note Sepsis Event Evaluation Height, Weight, BMI Height: 5'11.00" Weight: 126lbs. 0.0oz. 57.972331zy; 16.88 BMI Method:Stated Exam Exam Patient acknowledged, consented, and participated in this virtual visit which was conducted using real time audio/video Vital Signs Date Time Temp Pulse Resp B/P (MAP) Pulse Ox O2 Delivery O2 Flow Rate FiO2 09/19/22 11:00 87 23 147/93 (111) 97 Room Air 09/19/22 10:00 89 13 151/98 (115) 99 Room Air 09/19/22 10:00 89 13 151/98 (115) 99 Room Air 09/19/22 09:00 103 17 156/100 (118) 99 Room Air 09/19/22 08:00 101 18 160/113 (129) 100 Room Air 09/19/22 08:00 36.8 09/19/22 07:00 99 25 163/103 (123) 100 Room Air 09/19/22 06:57 106 09/19/22 06:00 94 18 145/96 (112) 100 Room Air 09/19/22 05:00 90 17 115/73 (87) 99 Room Air 09/19/22 04:00 89 17 118/77 (91) 98 Room Air 09/19/22 03:44 36.8 09/19/22 03:00 97 22 120/75 (90) 99 Room Air 09/19/22 02:57 100 Room Air 09/19/22 02:55 100 21 09/19/22 02:00 103 18 98 Room Air 09/19/22 01:00 138 20 130/69 (89) 98 Room Air 09/19/22 01:00 131 09/19/22 00:06 37.0 09/19/22 00:00 111 23 122/74 (90) 99 Room Air 09/18/22 22:30 135 18 167/103 (124) 100 Room Air 09/18/22 22:00 111 21 135/81 (99) 99 Room Air 09/18/22 21:30 138 22 164/90 (114) 100 Room Air 09/18/22 21:15 133 19 152/91 (111) 99 Room Air 09/18/22 21:01 37.3 146 23 160/95 (116) 100 Room Air 09/18/22 20:50 100 Room Air 09/18/22 20:50 141 09/18/22 20:45 145 20 149/83 (105) 100 Room Air 09/18/22 20:40 127 22 156/90 99 Room Air 09/18/22 16:29 35.8 129 16 159/95 (116) 99 Room Air I & O 09/19/22 07:00 Intake Total 5610 ml Output Total 750 ml Balance 4860 ml Height & Weight Height: 5'11.00" Weight: 126lbs. 0.0oz. 57.737480lo; 16.88 BMI Method:Stated General Appearance: Mild Distress HEENT: TMs Normal, Normal ENT Inspection, Pharynx Normal Neck: Non Tender, Supple Respiratory: Lungs Clear, Normal Breath Sounds Cardiovascular: Tachycardia Capillary Refill: Less Than 3 Seconds Neurologic/Psychiatric: Alert, Oriented x3, No Motor/Sensory Deficits, Normal Mood/Affect Skin: Normal Color, Warm/Dry Results Lab Laboratory Tests 09/18/22 16:36 09/18/22 21:24 09/19/22 01:30 09/19/22 03:45 09/19/22 08:05 Assessment/Plan Assessment/Plan as aboe Critical Care: Critically Ill Patient Time spent with patient (mins): 20 ALLYN WALTON MD Sep 19, 2022 11:25
[2022-09-19 12:53] LABS: CALCIUM 7.7 MG/DL (8.5-10.1); CREATININE SERUM 0.76 MG/DL (0.60-1.30); POTASSIUM 3.6 MMOL/L (3.6-5.0)
[2022-09-19 16:37] LABS: POTASSIUM 3.7 MMOL/L (3.6-5.0)
[2022-09-19 16:42] LABS: CREATININE SERUM 0.79 MG/DL (0.60-1.30)
[2022-09-19] MEDS: inSUlin ASPART (NovoLOG) 1 UNIT/0.01 ML (CHARGE PER UNIT) SC SCH ×2 (17:26→20:49)
--- NOTE | 2022-09-19 18:53 | History & Physical ---
KOLE WERNER 09/19/22 1853: HPI History of Present Illness: 32M with a history of Type I DM, gastroparesis, and diabetic retinopathy admitted on 09/18 for DKA. That morning he felt weak and had an AM glucose reading of 360 for which he administered 5 novolog units. He continued to feel weak and developed nausea and vomiting and thus visited the ER where he was stabilized and discharged. Later in the day his symptoms returned after which he was admitted. A this time, he says his nausea has improved but he continues to feel fatigued. He reports to adhere to proper insulin determir and insulin a spart schedule and dosing. He denies previous infection/illness. He notes he has had these symptoms before with prior instances of DKA. He denies confusion, blurred vision or sensation of excessive thirst. Attending Physician [place] PCP Admitting Physician: Lore Knight DO Attending Physician: Deanne Stoddard MD Consult Date of Admission Sep 18, 2022 at 17:54 Home Medications Home Medications Reviewed patient Home Medication Reconciliation performed by pharmacy medication reconciliations lot technician and/or nursing. Patients Allergies have been reviewed. 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: MODERNA Past Medical History PMHx: Type I Diabetes Anxiety Diabetic Retinopathy Thyrotoxicosis Pneumonia Cardiomyopathy Gastroparesis Family Medical History Significant Family History: No Pertinent Family Hx Family History: Cardiovascular disease 19 FATHER Hypertension 19 FATHER Review of Systems ([facility]) EENTM: no symptoms reported Respiratory: no symptoms reported Cardiovascular: no symptoms reported Gastrointestinal: nausea Genitourinary: no symptoms reported Musculoskeletal: no symptoms reported Skin: no symptoms reported Psychiatric/Neurological: No Symptoms Reported Reviewed Test Results Reviewed Test Results Lab ABG 17:04 09/18: pH 7.35, pCO2 24, HCO3 13 urine 18:26 09/18: 2+H protein, 3+H glucose, 2+ H ketones WBC: 09/18 16:36: 16.4 09/19 3:45: 13.1 Neutrophil count: 09/18 16:36: 14.3 09/19 3:45: 9.4 Physical Exam-([facility]) Physical Exam Vital Signs VS - Last 72 Hours, by Label 09/18/22 09/18/22 09/18/22 09/18/22 16:29 20:40 20:45 20:50 Temp 35.8 Pulse 129 127 145 141 Resp 16 22 20 B/P (MAP) 159/95 (116) 156/90 149/83 (105) Pulse Ox 99 99 100 O2 Delivery Room Air Room Air Room Air 09/18/22 09/18/22 09/18/22 09/18/22 20:50 21:01 21:15 21:30 Temp 37.3 Pulse 146 133 138 Resp 23 19 22 B/P (MAP) 160/95 (116) 152/91 (111) 164/90 (114) Pulse Ox 100 100 99 100 O2 Delivery Room Air Room Air Room Air Room Air 09/18/22 09/18/22 09/19/22 09/19/22 22:00 22:30 00:00 00:06 Temp 37.0 Pulse 111 135 111 Resp 21 18 23 B/P (MAP) 135/81 (99) 167/103 (124) 122/74 (90) Pulse Ox 99 100 99 O2 Delivery Room Air Room Air Room Air 09/19/22 09/19/22 09/19/22 09/19/22 01:00 01:00 02:00 02:55 Pulse 131 138 103 Resp 20 18 B/P (MAP) 130/69 (89) Pulse Ox 98 98 100 O2 Delivery Room Air Room Air FiO2 21 09/19/22 09/19/22 09/19/22 09/19/22 02:57 03:00 03:44 04:00 Temp 36.8 Pulse 97 89 Resp 22 17 B/P (MAP) 120/75 (90) 118/77 (91) Pulse Ox 100 99 98 O2 Delivery Room Air Room Air Room Air 09/19/22 09/19/22 09/19/22 09/19/22 05:00 06:00 06:57 07:00 Pulse 90 94 106 99 Resp 17 18 25 B/P (MAP) 115/73 (87) 145/96 (112) 163/103 (123) Pulse Ox 99 100 100 O2 Delivery Room Air Room Air Room Air 09/19/22 09/19/22 09/19/22 09/19/22 08:00 08:00 09:00 10:00 Temp 36.8 Pulse 101 103 89 Resp 18 17 13 B/P (MAP) 160/113 (129) 156/100 (118) 151/98 (115) Pulse Ox 100 99 99 O2 Delivery Room Air Room Air Room Air 09/19/22 09/19/22 09/19/22 09/19/22 10:00 11:00 12:00 12:45 Pulse 89 87 87 80 Resp 13 23 23 B/P (MAP) 151/98 (115) 147/93 (111) 119/87 (98) Pulse Ox 99 97 99 O2 Delivery Room Air Room Air Room Air 09/19/22 09/19/22 09/19/22 09/19/22 13:00 13:11 14:00 15:00 Temp 36.7 Pulse 79 86 82 Resp 23 25 B/P (MAP) 136/91 (106) 124/81 (95) 121/83 (96) Pulse Ox 98 99 99 O2 Delivery Room Air Room Air Room Air 09/19/22 09/19/22 09/19/22 09/19/22 15:46 16:00 17:00 18:00 Temp 36.6 Pulse 112 93 89 Resp 22 25 18 B/P (MAP) 157/100 (119) 146/97 (113) 154/95 (114) Pulse Ox 100 99 98 O2 Delivery Room Air Room Air Room Air 09/19/22 09/19/22 09/19/22 19:11 19:54 20:10 Temp 37.1 Pulse Ox 97 97 O2 Delivery Room Air Room Air Capillary Refill : Less Than 3 Seconds Assessment/Plan Assessment/Plan Admission Dx Admitting diagnosis of Type I DM and DKA. Reason for Inpatient Admission: DKA. Assessment & Plan 1. Diabetic Ketoacidosis 2. Type I diabetes mellitus - lactated ringers IV at 22:15 09/18 - KCl 50 ml at 21:14 4 - NaCl 1,000 at 21:14 12/4 - insulin drip 100 ml IV - resume long acting insulin and prandial insulin after DKA resolves - hypokalemia and hyponatremia corrected. WBCs/neutrophils trending towards normal. will continue to monitor blood gases and electrolytes. 3. Nausea and Vomiting - secondary to DKA - odansetron 4 mg - scopalamine 1.5 mg DEANNE STODDARD MD 09/19/22 2118: HPI History of Present Illness: Time Seen by Provider: 10:30 Home Medications Allergies Coded Allergies: Penicillins (Verified Allergy, Unknown, 05/23/06) QGO-Nmuqwm-Bkxkab Hx Family Medical History Family History: Cardiovascular disease 19 FATHER Hypertension 19 FATHER Review of Systems ([facility]) Constitutional: malaise Physical Exam-([facility]) Physical Exam General Appearance: mild distress Respiratory: lungs clear, normal breath sounds Cardiovascular: regular rate, rhythm, no murmur Gastrointestinal: normal bowel sounds, non tender, soft Extremities: no pedal edema Neurologic/Psychiatric: alert, depressed affect Skin: warm/dry Assessment/Plan Assessment/Plan Admission Status: Observation (1) DKA (diabetic ketoacidoses) Status: Acute Assessment & Plan: Insulin drip, anion gap closed over night, bicarb approaching normal. (2) Type 1 diabetes Status: Chronic Assessment & Plan: Resume basal and prandial insulin when tolerating oral bett er. (3) Nausea & vomiting Status: Acute Assessment & Plan: Antiemetics as needed (4) Hypokalemia Status: Acute Assessment & Plan: Replaced and resolved. (5) Gastroparesis due to DM Status: Chronic Assessment & Plan: On reglan at home (6) DVT prophylaxis Status: Acute Assessment & Plan: Enoxaparin Supervisory-Addendum Brief Verification & Attestation Participated in pt care: history, MDM, physical Personally performed: exam, history, MDM, supervision of care Care discussed with: Medical Student Procedures: n/a I personally saw and examined patient and did my own history which confirmed that documented by the medical student. See my exam for my findings and problem list for my plan. KOLE WERNER Sep 19, 2022 18:53 DEANNE STODDARD MD Sep 19, 2022 21:18
[2022-09-19] MEDS: ENOXAPARIN INJECTION 30 MG/0.3 ML SYR SC SCH (22:11)
[2022-09-20] MEDS ORDERED: D5 NS 1000 ML IV SOLUTION 1,000 ML IV ONE (02:41)
[2022-09-20] MEDS: D5 NS 1000 ML IV SOLUTION 1,000 ML IV SCH ×2 (02:46→14:48)
[2022-09-20] MEDS: D5 1/2 NS 1000 ML IV SOLUTION 1,000 ML IV SCH (02:46)
[2022-09-20] MEDS: PROCHLORPERAZINE 10 MG/2ML INJ (COMPAZINE) IV PRN ×2 (02:53→14:17)
[2022-09-20 04:22] LABS: BASOPHILS % (AUTO) 0 % (0-10); EOSINOPHILS % (AUTO) 0 % (0-10); HEMATOCRIT 35 % (40-54); HEMOGLOBIN 11.7 g/dL (13.3-17.7); LYMPHOCYTES # (AUTO) 1.2 10^3/uL (1.0-4.0); LYMPHOCYTES % (AUTO) 10 % (12-44); MEAN CORPUSCULAR HEMOGLOBIN 26 pg (25-34); MEAN CORPUSCULAR HGB CONC 33 g/dL (32-36); MEAN CORPUSCULAR VOLUME 79 fL (80-99); MEAN PLATELET VOLUME 9.3 fL (9.0-12.2); MONOCYTES # (AUTO) 0.8 10^3/uL (0.0-1.0); MONOCYTES % (AUTO) 7 % (0-12); NEUTROPHILS # (AUTO) 9.6 10^3/uL (1.8-7.8); NEUTROPHILS % (AUTO) 82 % (42-75); PLATELET COUNT 282 10^3/uL (130-400); WHITE BLOOD COUNT 11.7 10^3/uL (4.3-11.0)
[2022-09-20 04:37] LABS: ALBUMIN 3.5 GM/DL (3.2-4.5); POTASSIUM 3.1 MMOL/L (3.6-5.0)
[2022-09-20 04:38] LABS: CALCIUM 8.3 MG/DL (8.5-10.1)
[2022-09-20 04:40] LABS: TOTAL PROTEIN 6.4 GM/DL (6.4-8.2)
[2022-09-20 04:41] LABS: BILIRUBIN,TOTAL 0.5 MG/DL (0.1-1.0)
[2022-09-20 04:43] LABS: CREATININE SERUM 0.77 MG/DL (0.60-1.30); PHOSPHORUS 2.7 MG/DL (2.3-4.7)
[2022-09-20 04:46] LABS: MAGNESIUM 1.6 MG/DL (1.6-2.4)
[2022-09-20 05:10] LABS: ABG BASE EXCESS 1.8 MMOL/L (-2.5-2.5); ABG OXYGEN SATURATION 98 % (94-100); ABG PCO2 38 MMHG (35-45); ABG PH 7.45 (7.37-7.43); ABG PO2 79 MMHG (79-93); ABG TCO2 26.7 MMOL/L (21.0-31.0)
[2022-09-20 05:13] LABS: ALLENS TEST YES-POS; INSPIRED O2 N; PATIENT TEMP 36.9; VENTILATOR NO
[2022-09-20] MEDS: MAGNESIUM 1 GM/100 ML IVPB 100 ML IV SCH ×5 (05:33→08:00)
[2022-09-20] MEDS: POTASSIUM CL 10MEQ/50ML IVPB 50 ML IV SCH ×5 (05:34→09:14)
[2022-09-20] MEDS: ONDANSETRON 4 MG/2 ML (SDV) Z0FRAN IV PRN ×2 (05:56→12:59)
[2022-09-20] MEDS: KCL 20 MEQ TAB (K-DUR) PO SCH (06:44)
[2022-09-20] MEDS: METOCLOPRAMIDE INJ 10 MG/2 ML (REGLAN) IVP SCH ×4 (06:47→23:58)
[2022-09-20] MEDS: inSUlin ASPART (NovoLOG) 1 UNIT/0.01 ML (CHARGE PER UNIT) SC SCH ×9 (07:47→23:58)
[2022-09-20] MEDS: DOCUSATE SODIUM 100 MG (COLACE) CAP PO SCH ×2 (08:14→20:02)
[2022-09-20] MEDS: SENNOSIDES 8.6 MG (SENOKOT) TAB PO SCH ×2 (08:14→20:02)
[2022-09-20] MEDS: lisINopril 20 MG (PRINIVIL) TABLET PO SCH (08:31)
[2022-09-20] MEDS: PANTOPRAZOLE 40 MG (PROTONIX) TAB PO SCH (08:31)
[2022-09-20] MEDS: PROMETHAZINE INJ 25 MG/ML (PHENERGAN) AMP IM PRN ×2 (08:32→15:45)
--- NOTE | 2022-09-20 08:52 | Diagnostic Imaging Report ---
INDICATION: Dyspnea. TECHNIQUE/COMPARISON: A frontal chest was obtained at 0326 hours and compared to 09/19/2022. FINDINGS: The heart and mediastinal silhouette are normal in appearance. The lungs are clear. There is no pneumothorax or pleural fluid. IMPRESSION: No acute process in the chest. Dictated by: Dictated on workstation # [id number]
--- NOTE | 2022-09-20 12:17 | Tele-ICU Progress Note ---
Subjective Date Seen by a Provider: Sep 20, 2022 Time Seen by a Provider: 12:16 Subjective/Events-last exam (Tele-ICU Physician , consultation) Available chart/ vitals / labs / Images reviewed H&P is from ER notes Patient's information available about PMH, allergy reviewed in EMR. ROS as per chart and RN report Video assessment done using teleICU camera, rest of exam as per RN Discussed with RN. Patient in the last night became hypoglycemic and apparently he was not able to eat much due to nausea. Reportedly has a usual for nausea for a long time even before he developed DKA. In view of her low oral intake he became hypoglycemic hence he was started on D5 normal saline at 83 cc/h. This a.m. I have decreased that he is Levemir to 8 units at night and will continue IV fluids with D5W. Resume mag and potassium are low which are being replaced. Impression 1. Diabetic ketoacidosis improved and off insulin dripp 2. Nausea and vomiting due to DKA persisting 3. Acute kidney injury slowly improving. Recommendations 1.continue ivf with d5ns 2.increase zofran to 8mg iv prn q6 hrs. 3.Decrease levmir to 8 units at night. 4. Continue monitor magnesium and phosphate levels. 5. Suggest GI consult as out pt for possible gastroparesis. Sepsis Event Evaluation Height, Weight, BMI Height: 5'11.00" Weight: 126lbs. 0.0oz. 57.231000dp; 16.88 BMI Method:Stated Exam Exam Patient acknowledged, consented, and participated in this virtual visit which was conducted using real time audio/video Vital Signs Date Time Temp Pulse Resp B/P (MAP) Pulse Ox O2 Delivery O2 Flow Rate FiO2 09/20/22 12:00 90 14 165/107 (126) 99 Room Air 09/20/22 11:44 36.8 09/20/22 11:00 98 11 158/103 (121) 98 Room Air 09/20/22 10:00 104 23 159/96 (117) 99 Room Air 09/20/22 09:00 118 14 177/109 (131) 99 Room Air 09/20/22 08:00 36.8 09/20/22 08:00 88 22 133/80 (97) 99 Room Air 09/20/22 08:00 96 Room Air 09/20/22 07:31 98 09/20/22 07:00 103 22 130/77 (94) 99 Room Air 09/20/22 06:02 96 18 151/96 (114) 99 Room Air 09/20/22 05:00 93 14 100 Room Air 09/20/22 04:00 36.9 09/20/22 04:00 96 Room Air 09/20/22 04:00 98 10 99 Room Air 09/20/22 03:00 115 100 Room Air 09/20/22 02:00 102 18 97 Room Air 09/20/22 01:00 97 141/88 (105) 98 Room Air 09/20/22 01:00 80 09/20/22 00:00 75 117/87 (97) 98 Room Air 09/19/22 23:18 95 Room Air 09/19/22 23:00 75 114/86 (95) 99 Room Air 09/19/22 22:00 84 117/81 (93) 99 Room Air 09/19/22 21:00 80 30 130/90 (103) 98 Room Air 09/19/22 20:10 37.1 09/19/22 20:00 83 24 129/86 (100) 98 Room Air 09/19/22 19:54 97 Room Air 09/19/22 19:11 97 Room Air 09/19/22 19:00 96 09/19/22 19:00 96 26 149/95 (113) 98 Room Air 09/19/22 18:00 89 18 154/95 (114) 98 Room Air 09/19/22 17:00 93 25 146/97 (113) 99 Room Air 09/19/22 16:00 112 22 157/100 (119) 100 Room Air 09/19/22 15:46 36.6 09/19/22 15:00 82 121/83 (96) 99 Room Air 09/19/22 14:00 86 25 124/81 (95) 99 Room Air 09/19/22 13:11 36.7 09/19/22 13:00 79 23 136/91 (106) 98 Room Air 09/19/22 12:45 80 I & O 09/20/22 07:00 Intake Total 1850 ml Output Total 3935 ml Balance -2085 ml Height & Weight Height: 5'11.00" Weight: 126lbs. 0.0oz. 57.306549bg; 16.88 BMI Method:Stated General Appearance: Mild Distress HEENT: TMs Normal, Normal ENT Inspection, Pharynx Normal Neck: Non Tender, Supple Respiratory: Lungs Clear, Normal Breath Sounds Cardiovascular: Tachycardia Capillary Refill: Less Than 3 Seconds Gastrointestinal: normal bowel sounds, non tender, soft Neurologic/Psychiatric: Alert, Oriented x3, No Motor/Sensory Deficits, Normal Mood/Affect Skin: Normal Color, Warm/Dry Results Lab Laboratory Tests 09/18/22 16:36 09/18/22 21:24 09/19/22 01:30 09/19/22 03:45 09/19/22 08:05 09/19/22 12:32 09/19/22 16:10 09/20/22 03:42 Assessment/Plan Assessment/Plan as above Critical Care: Critically Ill Patient Time spent with patient (mins): 15 ALLYN WALTON MD Sep 20, 2022 12:17
[2022-09-20] MEDS ORDERED: inSUlin ASPART (NovoLOG) 1 UNIT/0.01 ML (CHARGE PER UNIT) SC SCH (16:15)
[2022-09-20] MEDS ORDERED: lisINopril 10 MG (PRINIVIL) TABLET PO NR (16:15)
[2022-09-20 16:50] VITALS: BP 151/96
[2022-09-20 19:06] VITALS: BP 164/99
--- NOTE | 2022-09-20 21:49 | Progress Note ---
Subjective Subjective/Events-last exam Pt seen at 1030. States feeling slightly better, able to tolerate some broth, but still having abdominal pain. Objective Exam Last Set of Vital Signs Vital Signs Date Time Temp Pulse Resp B/P (MAP) Pulse Ox O2 Delivery O2 Flow Rate FiO2 09/20/22 19:06 37.0 109 20 164/99 (120) 98 Room Air 09/19/22 02:55 21 Capillary Refill : Less Than 3 Seconds I&O Intake and Output 09/20/22 00:00 Intake Total 3620 ml Output Total 3325 ml Balance 295 ml Intake Oral 470 ml IV Total 3150 ml Output Urine Total 3325 ml General: Alert, No Acute Distress Lungs: Clear to Auscultation, Normal Air Movement Heart: Regular Rate, No Murmurs Abdomen: Normal Bowel Sounds, Soft, Other (diffuse ttp) Extremities: No Edema Psych/Mental Status: Other (flat affect) Results/Procedures Lab Laboratory Tests 09/20/22 01:55: Glucometer 31*L 09/20/22 02:16: Glucometer 27*L 09/20/22 02:32: Glucometer 78 09/20/22 02:58: Glucometer 156H 09/20/22 03:41: Glucometer 132H 09/20/22 03:42: White Blood Count 11.7H, Red Blood Count 4.43, Hemoglobin 11.7#L, Hematocrit 35L , Mean Corpuscular Volume 79L, Mean Corpuscular Hemoglobin 26, Mean Corpuscular Hemoglobin Concent 33, Red Cell Distribution Width 14.3, Platelet Count 282, Mean Platelet Volume 9.3, Immature Granulocyte % (Auto) 0, Neutrophils (%) (Auto) 82H, Lymphocytes (%) (Auto) 10L, Monocytes (%) (Auto) 7, Eosinophils (%) (Auto) 0, Basophils (%) (Auto) 0, Neutrophils # (Auto) 9.6H, Lymphocytes # (Auto) 1.2, Monocytes # (Auto) 0.8, Eosinophils # (Auto) 0.0, Basophils # (Auto) 0.0, Immature Granulocyte # (Auto) 0.0, Sodium Level 134L, Potassium Level 3.1L, Chloride Level 103, Carbon Dioxide Level 22, Anion Gap 9, Blood Urea Nitrogen 4L , Creatinine 0.77, Estimat Glomerular Filtration Rate 121, BUN/Creatinine Ratio 5, Glucose Level 151H, Calcium Level 8.3L, Corrected Calcium 8.7, Phosphorus Level 2.7, Magnesium Level 1.6, Total Bilirubin 0.5, Aspartate Amino Transf (AST/SGOT) 12, Alanine Aminotransferase (ALT/SGPT) 7, Alkaline Phosphatase 74, Total Protein 6.4, Albumin 3.5 09/20/22 05:05: Blood Gas Puncture Site RIGHT RADIAL, Blood Gas Patient Temperature 36.9, Arterial Blood pH 7.45H, Arterial Blood Partial Pressure CO2 38, Arterial Blood Partial Pressure O2 79, Arterial Blood HCO3 26, Arterial Blood Total CO2 26.7, Arterial Blood Oxygen Saturation 98, Arterial Blood Base Excess 1.8, Bony Test YES-POS, Blood Gas Ventilator Setting NO, Blood Gas Inspired Oxygen N 09/20/22 05:40: Glucometer 122H 09/20/22 08:11: Glucometer 202H 09/20/22 14:29: Glucometer 333H 09/20/22 16:53: Glucometer 227H 09/20/22 18:00: Glucometer 174H 09/20/22 19:06: Glucometer 213H [facility] 09/18/22 MRSA Screen - Final, Complete MRSA not isolated Assessment/Plan Assessment/Plan (1) DKA (diabetic ketoacidoses) Status: Resolved Assessment & Plan: Started on Insulin drip, anion gap closed, changed to basal/prandial insulin last night, had low blood sugar early am, decreased levemir dose for tonight. (2) Type 1 diabetes Status: Chronic Assessment & Plan: Resume basal and prandial insulin, monitor closely with still limited intake. (3) Nausea & vomiting Status: Acute Assessment & Plan: Antiemetics as needed (4) Hypokalemia Status: Acute Assessment & Plan: Replaced and resolved. (5) Gastroparesis due to DM Status: Chronic Assessment & Plan: On reglan at home (6) Hypertension Status: Chronic Assessment & Plan: Resume home lisinopril. Qualifiers: Qualified Codes: I10 - Essential (primary) hypertension (7) DVT prophylaxis Status: Acute Assessment & Plan: Enoxaparin DEANNE BLANCO MD Sep 20, 2022 21:49
[2022-09-20] MEDS: ENOXAPARIN INJECTION 30 MG/0.3 ML SYR SC SCH (22:13)
[2022-09-21] VITALS (7 sets, daily range): BP systolic 131–178; BP diastolic 81–110
[2022-09-21] MEDS: D5 NS 1000 ML IV SOLUTION 1,000 ML IV SCH (01:27)
[2022-09-21] MEDS: inSUlin ASPART (NovoLOG) 1 UNIT/0.01 ML (CHARGE PER UNIT) SC SCH ×6 (04:10→23:06)
[2022-09-21 05:33] LABS: BASOPHILS % (AUTO) 0 % (0-10); EOSINOPHILS # (AUTO) 0.1 10^3/uL (0.0-0.3); EOSINOPHILS % (AUTO) 1 % (0-10); HEMATOCRIT 33 % (40-54); HEMOGLOBIN 10.9 g/dL (13.3-17.7); LYMPHOCYTES # (AUTO) 1.8 10^3/uL (1.0-4.0); LYMPHOCYTES % (AUTO) 24 % (12-44); MEAN CORPUSCULAR HEMOGLOBIN 26 pg (25-34); MEAN CORPUSCULAR HGB CONC 33 g/dL (32-36); MEAN CORPUSCULAR VOLUME 79 fL (80-99); MEAN PLATELET VOLUME 8.9 fL (9.0-12.2); MONOCYTES # (AUTO) 0.7 10^3/uL (0.0-1.0); MONOCYTES % (AUTO) 10 % (0-12); NEUTROPHILS # (AUTO) 4.9 10^3/uL (1.8-7.8); NEUTROPHILS % (AUTO) 64 % (42-75); PLATELET COUNT 258 10^3/uL (130-400); WHITE BLOOD COUNT 7.6 10^3/uL (4.3-11.0)
[2022-09-21 05:42] LABS: ALBUMIN 3.2 GM/DL (3.2-4.5); CHLORIDE 101 MMOL/L (98-107); POTASSIUM 3.8 MMOL/L (3.6-5.0); SODIUM 136 MMOL/L (135-145)
[2022-09-21 05:44] LABS: CALCIUM 8.2 MG/DL (8.5-10.1)
[2022-09-21 05:45] LABS: GLUCOSE 140 MG/DL (70-105); TOTAL PROTEIN 5.9 GM/DL (6.4-8.2)
[2022-09-21 05:46] LABS: CARBON DIOXIDE 27 MMOL/L (21-32)
[2022-09-21 05:47] LABS: BILIRUBIN,TOTAL 0.8 MG/DL (0.1-1.0)
[2022-09-21 05:48] LABS: ALKALINE PHOSPHATASE 75 U/L (40-136); PHOSPHORUS 3.3 MG/DL (2.3-4.7)
[2022-09-21 05:49] LABS: CREATININE SERUM 0.75 MG/DL (0.60-1.30); GFR ESTIMATED 122
[2022-09-21] MEDS: KCL 20 MEQ TAB (K-DUR) PO SCH (05:49)
[2022-09-21] MEDS: POTASSIUM CL 10MEQ/50ML IVPB 50 ML IV SCH (05:49)
[2022-09-21 05:50] LABS: BUN/CREATININE RATIO 8
[2022-09-21 05:52] LABS: ALANINE AMINOTRANSFERASE < 6 U/L (0-55); MAGNESIUM 2.1 MG/DL (1.6-2.4)
[2022-09-21] MEDS: MAGNESIUM 1 GM/100 ML IVPB 100 ML IV SCH (05:56)
[2022-09-21] MEDS: METOCLOPRAMIDE INJ 10 MG/2 ML (REGLAN) IVP SCH ×4 (05:56→23:04)
[2022-09-21] MEDS: PANTOPRAZOLE 40 MG (PROTONIX) TAB PO SCH (09:24)
[2022-09-21] MEDS: ONDANSETRON 4 MG/2 ML (SDV) Z0FRAN IV PRN (09:24)
[2022-09-21] MEDS: lisINopril 20 MG (PRINIVIL) TABLET PO SCH (09:24)
[2022-09-21] MEDS: DOCUSATE SODIUM 100 MG (COLACE) CAP PO SCH ×2 (10:47→19:41)
[2022-09-21] MEDS: SENNOSIDES 8.6 MG (SENOKOT) TAB PO SCH ×2 (10:47→19:41)
[2022-09-21] MEDS: PROCHLORPERAZINE 10 MG/2ML INJ (COMPAZINE) IV PRN (12:53)
--- NOTE | 2022-09-21 13:42 | Progress Note ---
Subjective Subjective/Events-last exam Pt states he is still feeling poorly, vomited this am. Did keep down some liquids at lunch so far. Had low glucose of 60 overnight last night even with decreased levemir dose of 5 units. Objective Exam Last Set of Vital Signs Vital Signs Date Time Temp Pulse Resp B/P (MAP) Pulse Ox O2 Delivery O2 Flow Rate FiO2 09/21/22 12:09 37.2 101 18 178/99 (125) 99 Room Air 09/19/22 02:55 21 Capillary Refill : Less Than 3 Seconds I&O Intake and Output 09/21/22 00:00 Intake Total 2845 ml Output Total 4135 ml Balance -1290 ml Intake Oral 1045 ml IV Total 1800 ml Output Urine Total 3835 ml Emesis 300 ml # Voids 2 # Emeses 2 General: Alert, No Acute Distress Lungs: Clear to Auscultation, Normal Air Movement Heart: Regular Rate, No Murmurs Abdomen: Normal Bowel Sounds, Soft, No Tenderness Neuro: Normal Speech Psych/Mental Status: Mood NL Results/Procedures Lab Laboratory Tests 09/20/22 14:29: Glucometer 333H 09/20/22 16:53: Glucometer 227H 09/20/22 18:00: Glucometer 174H 09/20/22 19:06: Glucometer 213H 09/20/22 23:56: Glucometer 104 09/21/22 03:42: Glucometer 60*L 09/21/22 04:34: Glucometer 159H 09/21/22 05:19: White Blood Count 7.6, Red Blood Count 4.15L, Hemoglobin 10.9L, Hematocrit 33L, Mean Corpuscular Volume 79L, Mean Corpuscular Hemoglobin 26, Mean Corpuscular Hemoglobin Concent 33, Red Cell Distribution Width 13.7, Platelet Count 258, Mean Platelet Volume 8.9L, Immature Granulocyte % (Auto) 0, Neutrophils (%) (Auto) 64, Lymphocytes (%) (Auto) 24, Monocytes (%) (Auto) 10, Eosinophils (%) (Auto) 1, Basophils (%) (Auto) 0, Neutrophils # (Auto) 4.9, Lymphocytes # (Auto) 1.8, Monocytes # (Auto) 0.7, Eosinophils # (Auto) 0.1, Basophils # (Auto) 0.0, Immature Granulocyte # (Auto) 0.0, Sodium Level 136, Potassium Level 3.8, Chloride Level 101, Carbon Dioxide Level 27, Anion Gap 8, Blood Urea Nitrogen 6L , Creatinine 0.75, Estimat Glomerular Filtration Rate 122, BUN/Creatinine Ratio 8, Glucose Level 140H, Calcium Level 8.2L, Corrected Calcium 8.8, Phosphorus Level 3.3, Magnesium Level 2.1, Total Bilirubin 0.8, Aspartate Amino Transf (AST/SGOT) 10, Alanine Aminotransferase (ALT/SGPT) < 6, Alkaline Phosphatase 75, Total Protein 5.9L, Albumin 3.2, Beta-Hydroxybutyrate (Chem panel) 0.17 09/21/22 09:16: Glucometer 220H 09/21/22 12:07: Glucometer 223H Microbiology 09/18/22 MRSA Screen - Final, Complete MRSA not isolated Assessment/Plan Assessment/Plan (1) DKA (diabetic ketoacidoses) Status: Resolved Assessment & Plan: Started on Insulin drip, anion gap closed, changed to basal/prandial insulin last night, had low blood sugar early am, decreased levemir dose for tonight. 09/21- decrease levemir to 4 units tonight (2) Type 1 diabetes Status: Chronic Assessment & Plan: Resume basal and prandial insulin, monitor closely with still limited intake. (3) Nausea & vomiting Status: Acute Assessment & Plan: Antiemetics as needed, Reglan. (4) Hypokalemia Status: Acute Assessment & Plan: Replaced and resolved. (5) Gastroparesis due to DM Status: Chronic Assessment & Plan: On reglan at home (6) Hypertension Status: Chronic Assessment & Plan: Resume home lisinopril. Increase to 40 mg due to persistent HTN. Qualifiers: Qualified Codes: I10 - Essential (primary) hypertension (7) DVT prophylaxis Status: Acute Assessment & Plan: Enoxaparin DEANNE BLANCO MD Sep 21, 2022 13:42
[2022-09-21] MEDS ORDERED: lisINopril 10 MG (PRINIVIL) TABLET PO NR (13:45)
[2022-09-21] MEDS ORDERED: HYDROmorphone 2 MG/ML VIAL (DILAUDID) IV PRN (14:00)
[2022-09-21] MEDS: ENOXAPARIN INJECTION 30 MG/0.3 ML SYR SC SCH (22:17)
[2022-09-22] VITALS: BP 128/76
[2022-09-22] MEDS: inSUlin ASPART (NovoLOG) 1 UNIT/0.01 ML (CHARGE PER UNIT) SC SCH ×3 (04:00→11:35)
[2022-09-22 04:05] VITALS: BP 143/83
[2022-09-22] MEDS: METOCLOPRAMIDE INJ 10 MG/2 ML (REGLAN) IVP SCH (05:17)
[2022-09-22] MEDS: MAGNESIUM 1 GM/100 ML IVPB 100 ML IV SCH (06:00)
[2022-09-22] MEDS: POTASSIUM CL 10MEQ/50ML IVPB 50 ML IV SCH (06:00)
[2022-09-22] MEDS: KCL 20 MEQ TAB (K-DUR) PO SCH (06:00)
[2022-09-22 06:30] LABS: BASOPHILS % (AUTO) 0 % (0-10); EOSINOPHILS # (AUTO) 0.1 10^3/uL (0.0-0.3); EOSINOPHILS % (AUTO) 0 % (0-10); HEMATOCRIT 37 % (40-54); HEMOGLOBIN 12.5 g/dL (13.3-17.7); LYMPHOCYTES # (AUTO) 1.2 10^3/uL (1.0-4.0); LYMPHOCYTES % (AUTO) 10 % (12-44); MEAN CORPUSCULAR HEMOGLOBIN 26 pg (25-34); MEAN CORPUSCULAR HGB CONC 34 g/dL (32-36); MEAN CORPUSCULAR VOLUME 78 fL (80-99); MEAN PLATELET VOLUME 8.8 fL (9.0-12.2); MONOCYTES # (AUTO) 0.7 10^3/uL (0.0-1.0); MONOCYTES % (AUTO) 5 % (0-12); NEUTROPHILS # (AUTO) 10.5 10^3/uL (1.8-7.8); NEUTROPHILS % (AUTO) 84 % (42-75); PLATELET COUNT 288 10^3/uL (130-400); WHITE BLOOD COUNT 12.4 10^3/uL (4.3-11.0)
[2022-09-22 06:45] LABS: ALBUMIN 3.7 GM/DL (3.2-4.5); CHLORIDE 94 MMOL/L (98-107); POTASSIUM 3.9 MMOL/L (3.6-5.0); SODIUM 130 MMOL/L (135-145)
[2022-09-22 06:46] LABS: CALCIUM 8.6 MG/DL (8.5-10.1)
[2022-09-22 06:48] LABS: GLUCOSE 170 MG/DL (70-105); TOTAL PROTEIN 6.8 GM/DL (6.4-8.2)
[2022-09-22 06:49] LABS: BILIRUBIN,TOTAL 0.9 MG/DL (0.1-1.0); CARBON DIOXIDE 24 MMOL/L (21-32)
[2022-09-22 06:51] LABS: ALKALINE PHOSPHATASE 85 U/L (40-136); CREATININE SERUM 0.91 MG/DL (0.60-1.30); GFR ESTIMATED 114; PHOSPHORUS 3.5 MG/DL (2.3-4.7)
[2022-09-22 06:52] LABS: BUN/CREATININE RATIO 11
[2022-09-22 06:54] LABS: ALANINE AMINOTRANSFERASE < 6 U/L (0-55); MAGNESIUM 1.9 MG/DL (1.6-2.4)
[2022-09-22 07:26] VITALS: BP 168/98
[2022-09-22] MEDS ORDERED: LISI40TA9 PO (07:43)
[2022-09-22] MEDS: PANTOPRAZOLE 40 MG (PROTONIX) TAB PO SCH (08:47)
[2022-09-22] MEDS: SENNOSIDES 8.6 MG (SENOKOT) TAB PO SCH (08:54)
[2022-09-22] MEDS: DOCUSATE SODIUM 100 MG (COLACE) CAP PO SCH (08:54)
[2022-09-22] MEDS ORDERED: lisINopril 20 MG (PRINIVIL) TABLET PO SCH (09:00)
--- NOTE | 2022-09-22 10:43 | Discharge Summary ---
Discharge Summary Hospital Course Problems/Diagnosis: (1) DKA (diabetic ketoacidoses) Status: Resolved Resolution Date/Time: 09/20/22 @ 21:48 Assessment & Plan: Started on Insulin drip, anion gap closed, changed to basal/prandial insulin last night, had low blood sugar early am, decreased levemir dose for tonight. 09/21- decreased levemir to 4 units tonight 09/22 tolerating diet better, feeling better, discharged on home insulin regimen. (2) Type 1 diabetes Status: Chronic Assessment & Plan: Resume basal and prandial insulin. (3) Nausea & vomiting Status: Acute Assessment & Plan: Antiemetics as needed, Reglan. (4) Hypokalemia Status: Resolved Resolution Date/Time: 09/22/22 @ 18:37 Assessment & Plan: Replaced and resolved. (5) Gastroparesis due to DM Status: Chronic Assessment & Plan: On reglan at home (6) Hypertension Status: Chronic Assessment & Plan: Resume home lisinopril. Increased to 40 mg due to persistent HTN. Qualifiers: Qualified Codes: I10 - Essential (primary) hypertension Hospital Course Date of Admission: Sep 18, 2022 at 17:54 Admission Diagnosis : Family Physician/Provider: [place] Date of Discharge: 09/22/22 Discharge Diagnosis: See problem list Hospital Course: See problem list Labs and Pending Lab Test: Laboratory Tests 09/21/22 12:07: Glucometer 223H 09/21/22 16:09: Glucometer 176H 09/21/22 19:28: Glucometer 327H 09/21/22 23:06: Glucometer 145H 09/22/22 04:20: Glucometer 70 09/22/22 06:17: White Blood Count 12.4H, Red Blood Count 4.75, Hemoglobin 12.5L, Hematocrit 37L, Mean Corpuscular Volume 78L, Mean Corpuscular Hemoglobin 26, Mean Corpuscular Hemoglobin Concent 34, Red Cell Distribution Width 13.5, Platelet Count 288, Mean Platelet Volume 8.8L, Immature Granulocyte % (Auto) 0, Neutrophils (%) (Auto) 84H, Lymphocytes (%) (Auto) 10L, Monocytes (%) (Auto) 5, Eosinophils (%) (Auto) 0, Basophils (%) (Auto) 0, Neutrophils # (Auto) 10.5H, Lymphocytes # (Auto) 1.2, Monocytes # (Auto) 0.7, Eosinophils # (Auto) 0.1, Basophils # (Auto) 0.0, Immature Granulocyte # (Auto) 0.0, Sodium Level 130L, Potassium Level 3.9, Chloride Level 94L, Carbon Dioxide Level 24, Anion Gap 12, Blood Urea Nitrogen 10, Creatinine 0.91, Estimat Glomerular Filtration Rate 114, BUN/Creatinine Ratio 11, Glucose Level 170H, Calcium Level 8.6, Corrected Calcium 8.8, Phosphorus Level 3.5, Magnesium Level 1.9, Total Bilirubin 0.9, Aspartate Amino Transf (AST/SGOT) 10, Alanine Aminotransferase (ALT/SGPT) < 6, Alkaline Phosphatase 85, Total Protein 6.8, Albumin 3.7 09/22/22 08:47: Glucometer 270H Microbiology 09/18/22 MRSA Screen - Final, Complete MRSA not isolated Home Meds Active Lisinopril 40 Mg Tablet 40 Mg PO DAILY Reported Ondansetron HCl 8 Mg Tablet 8 Mg PO Q6H PRN Metoclopramide HCl 10 Mg Tablet 10 Mg PO ACHS Pantoprazole Sodium 40 Mg Tablet.dr 40 Mg PO DAILY Novolog (Insulin Aspart) 100 Unit/1 Ml Susp Unit SQ TIDAC MDD 30 UNITS USES 2 UNITS PER EVERY CARB Levemir (Insulin Determir) 1,000 Units/10 Ml Soln 5-10 Units SQ HS Assessment/Pt DC Instructions Follow up with primary physician within a week of discharge. Discharge Diet: ADA Diet Activity as Tolerated: Yes Discharge Physical Examination Allergies: Coded Allergies: Penicillins (Verified Allergy, Unknown, 05/23/06) General Appearance: No Apparent Distress Respiratory: Lungs Clear Cardiovascular: Regular Rate, Rhythm, No Edema Gastrointestinal: Normal Bowel Sounds, Non Tender, Soft Neurologic/Psychiatric: Alert, Normal Mood/Affect DEANNE BLANCO MD Sep 22, 2022 10:43
[2022-09-22 12:20] VITALS: BP 168/98
[2022-09-22 12:53] VITALS: BP 156/94
== END 2022-09-22 12:20 | disposition home or self-care (01) ==
LOC: EDUNIT# 16:18 → ER 16:20 → ICU 17:54 → 4TH 09-20 16:41
PROVIDERS: ADMIT Internal Medicine; ATTEND Family Medicine
DX: E10.10 Type 1 diabetes mellitus with ketoacidosis without coma (principal); E10.43 Type 1 diabetes mellitus with diabetic autonomic (poly)neuropathy; K31.84 Gastroparesis; I10 Essential (primary) hypertension; E87.6 Hypokalemia; N17.9 Acute kidney failure, unspecified; Z87.891 Personal history of nicotine dependence; Z79.4 Long term (current) use of insulin; Z79.899 Other long term (current) drug therapy
CPT/HCPCS: 36415; 71045; 74019; 80048; 80053; 81000; 82010; 82805; 82947; 83690; 83735; 84100; 85007; 85025; 85027; 87081; 94760; 96361; 96365; 96366; 96372; 96375; 96376

== ENCOUNTER 2023-04-13 15:56 | Inpatient (IN) | payer SELFPAY ==
[~2023-04-13] VITALS: Ht 180.3 cm; Wt 59.1 kg
[~2023-04-13 15:56] MED LIST changes: -INSU100I29 SQ; +INSU100I30 SQ; +LISI40TA9 PO
--- NOTE | 2023-04-13 16:29 | ED GI ---
General Chief Complaint: Abdominal/GI Problems Stated Complaint: VOMITING/HIGH BLOOD SUGAR/FATIGUE Source of Information: Patient Exam Limitations: No Limitations (LUMA FLORES APRN) History of Present Illness Date Seen by Provider: Apr 13, 2023 Time Seen by Provider: 16:18 Initial Comments 32-year-old male presents to the ER with complaints of nonstop vomiting since this morning. He states that he woke up not feeling well. Reports mild mid abdominal pain, last bowel movement was 1 hour ago. He denies fevers. He is a type I diabetic. He reports compliance with his medications, states he has not missed any doses. Currently takes NovoLog and Levemir. Other past medical history includes gastroparesis and hypertension. He takes Reglan, lisinopril, and pantoprazole. He denies any abdominal surgeries. (LUMA FLORES APRN) Allergies and Home Medications Allergies Coded Allergies: Penicillins (Verified Allergy, Unknown, 05/23/06) Patient Home Medication List Home Medication List Reviewed: Yes (LUMA FLORES APRN) Insulin Aspart (Novolog) 100 Unit/Ml Susp, UNIT SQ AC, (Reported) Entered as Reported by: YUMIKO SNOW on 04/14/23 103 Last Action: Reviewed Insulin Determir (Levemir) 100 Unit/Ml Soln, 5 UNITS SQ HS, (Reported) Entered as Reported by: YUMIKO SNOW on 04/14/231035 Last Action: Reviewed Lisinopril (Lisinopril) 40 Mg Tablet, 40 MG PO DAILY, (Reported) Entered as Reported by: YUMIKO SNOW on 04/14/23 103 Last Action: Reviewed Metoclopramide HCl (Metoclopramide HCl) 10 Mg Tablet, 10 MG PO ACHS, (Reported) Entered as Reported by: DANNIE PERDOMO on 01/11/21951 Last Action: Reviewed Pantoprazole Sodium (Pantoprazole Sodium) 40 Mg Tablet.dr, 40 MG PO DAILY, (Reported) Entered as Reported by: DANNIE PERDOMO on 01/11/21951 Last Action: Reviewed Discontinued Medications Insulin Aspart (Novolog) 100 Unit/1 Ml Susp, UNIT SQ TIDAC, (Reported) Discontinued Reason: No Longer Taking Entered as Reported by: NICOLLE MUNSON on 11/28/19 1021 Last Action: Discontinued Insulin Determir (Levemir) 1,000 Units/10 Ml Soln, 5-10 UNITS SQ HS, (Reported) Discontinued Reason: No Longer Taking Entered as Reported by: NICOLLE MUNSON on 11/28/19 1021 Last Action: Discontinued Lisinopril (Lisinopril) 40 Mg Tablet, 40 MG PO DAILY Discontinued Reason: No Longer Taking Prescribed by: DEANNE BLANCO on 09/22/22 0743 Last Action: Discontinued Ondansetron HCl (Ondansetron HCl) 8 Mg Tablet, 8 MG PO Q6H PRN for NAUSEA/VOMITING, (Reported) Discontinued Reason: No Longer Taking Entered as Reported by: YUMIKO SNOW on 07/21/22 1446 Last Action: Discontinued Review of Systems Review of Systems Constitutional: see HPI (LUMA FLORES APRN) Past Oxkarzu-Rmeekf-Isvoao Hx Patient Social History Tobacco Use?: No Use of E-Cig and/or Vaping dev: Yes E-Cig or Vaping type used: CBD Use of E-Cig and/or Vaping Kennedy: Current Everyday User Substance use?: No Alcohol Use?: No Pt feels they are or have been: No (LUMA FLORES APRN) Immunizations Up To Date Tetanus Booster (TDap): Unknown PED Vaccines UTD: No First/Initial COVID19 Vaccinat: 01/05/21 Second COVID19 Vaccination Pierre: 02/04/21 Third COVID19 Vaccination Date: 02/04/21 (LUMA FLORES APRN) Seasonal Allergies Seasonal Allergies: No (LUMA FLORES APRN) Past Medical History Surgery/Hospitalization HX: TYPE 1 DM, DKA DENIES SURG. Surgeries: No Respiratory: Yes Pneumonia Currently Using CPAP: No Currently Using BIPAP: No Cardiac: Yes (CARDIOMYOPATHY DX 2017) Cardiomyopathy, Hypertension Neurological: No Reproductive Disorders: No Sexually Transmitted Disease: No HIV/AIDS: No Genitourinary: No Gastrointestinal: Yes (GASTROPARESIS) Gastroesophageal Reflux Musculoskeletal: No Endocrine: Yes (DX AGE 11, [place] 2001; MULTIPLE ADMITS FOR DKA) Diabetes, Insulin dep Loss of Vision: Denies Hearing Impairment: Denies Cancer: No Did You Recieve Any Treatments: No Psychosocial: Yes (Frequent marijuana use) Integumentary: Yes (WOUNDS TO LOWER LEGS-- REQUIRED WOUND CARE CLINIC TREATMENT) Blood Disorders: No Adverse Reaction/Blood Tranf: No (LUMA FLORES APRN) Family Medical History Cardiovascular disease 19 FATHER Hypertension 19 FATHER No Pertinent Family Hx (LUMA FLORES APRN) Physical Exam Vital Signs Vital Signs - First Documented 04/13/23 16:08 Temp 36.6 Pulse 123 Resp 24 B/P (MAP) 188/106 (133) Pulse Ox 100 O2 Delivery Room Air (ANATOLY SHAFER MD) Vital Signs Capillary Refill : (LUMA FLORES APRN) Height/Weight/BMI Height: 5'11.00" Weight: 126lbs. 0.0oz. 57.841786zb; 17.01 BMI Method:Stated General Appearance: moderate distress Neck: supple, normal inspection Respiratory: lungs clear, normal breath sounds, no respiratory distress, no accessory muscle use Cardiovascular: tachycardia Gastrointestinal: normal bowel sounds, soft; No guarding; tenderness (Mild tenderness mid abdomen) Extremities: normal range of motion, normal inspection Neurologic/Psychiatric: alert, normal mood/affect Skin: normal color, warm/dry (LUMA FLORES APRN) Progress/Results/Core Measures Results/Orders Lab Results Laboratory Tests Test 04/13/23 16:12 04/13/23 16:15 04/13/23 17:00 04/13/23 17:03 Range/Units White Blood Count 14.6 H 4.3-11.0 10^3/uL Red Blood Count 5.11 4.30-5.52 10^6/uL Hemoglobin 13.0 L 13.3-17.7 g/dL Hematocrit 39 L 40-54 % Mean Corpuscular Volume 77 L 80-99 fL Mean Corpuscular Hemoglobin 25 25-34 pg Mean Corpuscular Hemoglobin Concent 33 32-36 g/dL Red Cell Distribution Width 14.7 H 10.0-14.5 % Platelet Count 251 130-400 10^3/uL Mean Platelet Volume 10.3 9.0-12.2 fL Immature Granulocyte % (Auto) 0 % Neutrophils (%) (Auto) 90 H 42-75 % Lymphocytes (%) (Auto) 6 L 12-44 % Monocytes (%) (Auto) 3 0-12 % Eosinophils (%) (Auto) 0 0-10 % Basophils (%) (Auto) 0 0-10 % Neutrophils # (Auto) 13.2 H 1.8-7.8 10^3/uL Lymphocytes # (Auto) 0.9 L 1.0-4.0 10^3/uL Monocytes # (Auto) 0.4 0.0-1.0 10^3/uL Eosinophils # (Auto) 0.0 0.0-0.3 10^3/uL Basophils # (Auto) 0.0 0.0-0.1 10^3/uL Immature Granulocyte # (Auto) 0.1 0.0-0.1 10^3/uL Neutrophils % (Manual) 92 % Lymphocytes % (Manual) 5 % Monocytes % (Manual) 3 % Sodium Level 134 L 135-145 MMOL/L Potassium Level 4.8 3.6-5.0 MMOL/L Chloride Level 99 98-107 MMOL/L Carbon Dioxide Level 15 L 21-32 MMOL/L Anion Gap 20 H 5-14 MMOL/L Blood Urea Nitrogen 17 7-18 MG/DL Creatinine 1.25 0.60-1.30 MG/DL Estimat Glomerular Filtration Rate 78 BUN/Creatinine Ratio 14 Glucose Level 471 *H 70-105 MG/DL Calcium Level 9.9 8.5-10.1 MG/DL Corrected Calcium 9.5 8.5-10.1 MG/DL Phosphorus Level 2.3 2.3-4.7 MG/DL Magnesium Level 2.0 1.6-2.4 MG/DL Total Bilirubin 1.3 H 0.1-1.0 MG/DL Aspartate Amino Transf (AST/SGOT) 23 5-34 U/L Alanine Aminotransferase (ALT/SGPT) 12 0-55 U/L Alkaline Phosphatase 102 40-136 U/L C-Reactive Protein High Sensitivity 0.36 0.00-0.50 MG/DL Total Protein 8.3 H 6.4-8.2 GM/DL Albumin 4.5 3.2-4.5 GM/DL Lipase 17 8-78 U/L Beta-Hydroxybutyrate (Chem panel) 3.80 H 0.00-0.27 MMOL/L Glucometer 477 *H 70-110 MG/DL Venous Blood pH 7.39 7.31-7.41 Venous Blood Partial Pressure CO2 26 L 40-52 MMHG Venous Blood HCO3 16 L 22-28 MMOL/L Urine Color YELLOW Urine Clarity CLEAR Urine pH 6.0 5-9 Urine Specific [place] 1.010 L 1.016-1.022 Urine Protein 2+ H NEGATIVE Urine Glucose (UA) 3+ H NEGATIVE Urine Ketones 2+ H NEGATIVE Urine Nitrite NEGATIVE NEGATIVE Urine Bilirubin NEGATIVE NEGATIVE Urine Urobilinogen 0.2 < = 1.0 MG/DL Urine Leukocyte Esterase NEGATIVE NEGATIVE Urine RBC (Auto) 1+ H NEGATIVE Urine RBC 2-5 H /HPF Urine WBC 0-2 /HPF Urine Squamous Epithelial Cells NONE /HPF Urine Crystals PRESENT H /LPF Urine Amorphous Sediment RARE TARAS URATES H /LPF Urine Bacteria TRACE /HPF Urine Casts NONE /LPF Urine Mucus NEGATIVE /LPF Urine Other FEW STARCH GRAN /HPF Urine Culture Indicated NO Test 04/13/23 18:09 Range/Units Glucometer 384 H 70-110 MG/DL (ANATOLY SHAFER MD) Vital Signs/I&O 04/13/23 04/13/23 16:08 19:25 Temp 36.6 36.6 Pulse 123 109 Resp 24 20 B/P (MAP) 188/106 (133) 143/76 Pulse Ox 100 97 O2 Delivery Room Air Room Air 04/14/23 00:00 Intake Total 2000 ml Balance 2000 ml (ANATOLY SHAFER MD) Progress Progress Note : Progress Note Patient seen and evaluated, lying in bed, moderate distress, vomited several times during assessment. Based on exam and symptoms, concerned for DKA. Work- up initiated including CBC, CMP, lipase, VBG, magnesium, phosphorus, beta hydroxybutyrate. IV fluids and Reglan ordered. 1809 Labs reviewed. CBC shows elevated WBC 14.6, elevated neutrophil percentage 90. Likely related to vomiting. CMP shows slightly decreased sodium 134, decreased CO2 15, elevated anion gap 20, blood glucose critically elevated 471. Lipase normal. Beta hydroxybutyrate elevated 3.80. CRP normal. Venous blood gas shows pH 7.39. Urinalysis shows 2+ ketones, 2+ protein, 3+ glucose, 1+ RBC. Repeat Accu-Chek 380 after 1.25 liters of IV fluid. Second liter is running currently. [address] Knight, [facility] hospitalist, regarding patient. She agrees to admit. She would like patient to go to the ICU. She will place admission orders. (LUMA FLORES APRN) Departure Communication (Admissions) Time/Spoke to Admitting Phy: 18:30 Dr. Knight, hospitalist, accepted patient for admission. (LUMA FLORES APRN) Impression Primary Impression: DKA (diabetic ketoacidosis) Qualified Codes: E10.10 - Type 1 diabetes mellitus with ketoacidosis without coma Disposition: ADMITTED INPATIENT Condition: Critical Admissions Decision to Admit Reason: Admit from ER (General) Decision to Admit/Date: Apr 13, 2023 Time/Decision to Admit Time: 18:10 (LUMA FOLRES APRN) Departure-Patient Inst. Referrals: [facility] (PCP/Family) Primary Care Physician ATTENDING PHYSICIAN NOTE: I was physically present as attending physician in the emergency department during the care of this patient. I briefly discussed this case with Luma Camacho, JEWELRY FACER, and need for admission. I did not personally interview or examine this patient. I was not otherwise directly involved in the decision making or delivery of care for this patient. (ANATOLY SHAFER MD) LUMA FLORES APRN Apr 13, 2023 16:29 ANATOLY SHAFER MD Apr 14, 2023 11:20
[2023-04-13] MEDS ORDERED: METOCLOPRAMIDE INJ 10 MG/2 ML (REGLAN) IVP ONE (16:30)
[2023-04-13] MEDS ORDERED: NS IV 1000 ML 1,000 ML IV SCH ×3 (16:30→20:15)
[2023-04-13 16:36] LABS: BASOPHILS % (AUTO) 0 % (0-10); EOSINOPHILS % (AUTO) 0 % (0-10); HEMATOCRIT 39 % (40-54); LYMPHOCYTES # (AUTO) 0.9 10^3/uL (1.0-4.0); LYMPHOCYTES % (AUTO) 6 % (12-44); MEAN CORPUSCULAR HEMOGLOBIN 25 pg (25-34); MEAN CORPUSCULAR HGB CONC 33 g/dL (32-36); MEAN CORPUSCULAR VOLUME 77 fL (80-99); MEAN PLATELET VOLUME 10.3 fL (9.0-12.2); MONOCYTES # (AUTO) 0.4 10^3/uL (0.0-1.0); MONOCYTES % (AUTO) 3 % (0-12); NEUTROPHILS # (AUTO) 13.2 10^3/uL (1.8-7.8); NEUTROPHILS % (AUTO) 90 % (42-75); PLATELET COUNT 251 10^3/uL (130-400); WHITE BLOOD COUNT 14.6 10^3/uL (4.3-11.0)
[2023-04-13 16:41] LABS: ALBUMIN 4.5 GM/DL (3.2-4.5); POTASSIUM 4.8 MMOL/L (3.6-5.0)
[2023-04-13 16:42] LABS: CALCIUM 9.9 MG/DL (8.5-10.1)
[2023-04-13 16:44] LABS: TOTAL PROTEIN 8.3 GM/DL (6.4-8.2)
[2023-04-13 16:45] LABS: BILIRUBIN,TOTAL 1.3 MG/DL (0.1-1.0)
[2023-04-13 16:47] LABS: CREATININE SERUM 1.25 MG/DL (0.60-1.30); PHOSPHORUS 2.3 MG/DL (2.3-4.7)
[2023-04-13 17:13] LABS: BILIRUBIN,URINE NEGATIVE (NEGATIVE); CLARITY,URINE CLEAR; COLOR,URINE YELLOW; GLUCOSE, URINE (UA) 3+ (NEGATIVE); KETONES,URINE 2+ (NEGATIVE); LEUKOCYTE ESTERASE ,URINE NEGATIVE (NEGATIVE); NITRITE,URINE NEGATIVE (NEGATIVE); PROTEIN,URINE 2+ (NEGATIVE)
[2023-04-13] MEDS ORDERED: ONDANSETRON 4 MG/2 ML (SDV) Z0FRAN IVP ONE (17:30)
[2023-04-13 17:44] LABS: AMORPHOUS SEDIMENT,UR RARE AMOR URATES /LPF; BACTERIA,URINE TRACE /HPF; WBC,URINE 0-2 /HPF
[2023-04-13 17:45] LABS: URINE OTHER FEW STARCH GRAN /HPF
[2023-04-13 18:01] LABS: LYMPHOCYTES % (MANUAL) 5 %; MONOCYTES % (MANUAL) 3 %; NEUTROPHILS % (MANUAL) 92 %
[2023-04-13] MEDS ORDERED: POTASSIUM CL 10MEQ/50ML IVPB 50 ML IV ONE ×2 (19:32→21:32)
[2023-04-13] MEDS ORDERED: D5 1/2 NS 1000 ML IV SOLUTION 1,000 ML IV ONE (19:32)
[2023-04-13] MEDS ORDERED: 1/2 NS IV SOLUTION 0 ML IV ONE (19:32)
[2023-04-13] MEDS ORDERED: MELATONIN 3 MG TABLET PO PRN (20:00)
[2023-04-13] MEDS ORDERED: ACETAMINOPHEN 325 MG TABLET PO PRN (20:00)
[2023-04-13] MEDS: NS IV 1000 ML 1,000 ML IV SCH ×2 (20:00→21:36)
[2023-04-13] MEDS ORDERED: POTASSIUM CL 10MEQ/50ML IVPB 50 ML IV SCH ×3 (20:00→20:15)
[2023-04-13] MEDS ORDERED: diphenhydrAMINE 25 MG TAB (BENADRYL) PO PRN (20:00)
[2023-04-13] MEDS ORDERED: NS IV 500 ML 500 ML IV PRN ×2 (20:00)
[2023-04-13] MEDS ORDERED: BISACODYL 10 MG SUPP (DULCOLAX) PR PRN (20:00)
[2023-04-13] MEDS ORDERED: ANTACID SUSP 30 ML UDC (MYLANTA) PO PRN (20:00)
[2023-04-13] MEDS ORDERED: LACTULOSE SYRUP 10GM/15ML (ENULOSE) 30ML UDC PO PRN (20:00)
[2023-04-13] MEDS ORDERED: CALCIUM CARBONATE 500 MG (TUMS) TAB.CHEW PO PRN (20:00)
[2023-04-13] MEDS ORDERED: polyethylene glycoL POWDER 17 GM (MIRALAX) PACK PO PRN (20:00)
[2023-04-13] MEDS ORDERED: ONDANSETRON 4 MG (ZOFRAN) ORAL DISSOLVE TAB PO PRN (20:00)
[2023-04-13] MEDS: 1/2 NS IV SOLUTION 1,000 ML IV SCH ×2 (20:00→23:23)
[2023-04-13] MEDS ORDERED: HYDROmorphone 2 MG/ML VIAL (DILAUDID) IV PRN (20:00)
[2023-04-13] MEDS ORDERED: MILK OF MAGNESIA 400 MG/5 ML 30 ML UDC PO PRN (20:00)
[2023-04-13] MEDS ORDERED: diphenhydrAMINE 50 MG/ML INJ (BENADRYL) IVP PRN (20:00)
[2023-04-13] MEDS ORDERED: 1/2 NS IV SOLUTION 1,000 ML IV SCH (20:15)
[2023-04-13] MEDS ORDERED: D5 1/2 NS 1000 ML IV SOLUTION 1,000 ML IV SCH (20:15)
[2023-04-13 20:22] VITALS: BP 188/106
[2023-04-13] MEDS ORDERED: RT-ALBUTEROL SULF 2.5 MG/3 ML PRE-MIX VIAL INH PRN (20:30)
[2023-04-13 20:31] LABS: POTASSIUM 4.1 MMOL/L (3.6-5.0)
[2023-04-13 20:32] LABS: CALCIUM 9.2 MG/DL (8.5-10.1)
[2023-04-13] MEDS: POTASSIUM CL 10MEQ/50ML IVPB 50 ML IV SCH ×2 (20:33→23:32)
[2023-04-13] MEDS: D5 1/2 NS 1000 ML IV SOLUTION 1,000 ML IV SCH (20:33)
[2023-04-13 20:37] LABS: CREATININE SERUM 1.08 MG/DL (0.60-1.30)
[2023-04-13] MEDS: SENNOSIDES 8.6 MG (SENOKOT) TAB PO SCH (21:22)
[2023-04-13] MEDS: DOCUSATE SODIUM 100 MG (COLACE) CAP PO SCH (21:22)
[2023-04-13] MEDS ORDERED: NS IV 1000 ML 1,000 ML ONE (21:32)
[2023-04-13] MEDS: ENOXAPARIN INJECTION 30 MG/0.3 ML SYR SC SCH (22:12)
[2023-04-13 22:44] LABS: POTASSIUM 3.7 MMOL/L (3.6-5.0)
[2023-04-13 22:50] LABS: CREATININE SERUM 0.87 MG/DL (0.60-1.30)
[2023-04-14] MEDS: METOCLOPRAMIDE INJ 10 MG/2 ML (REGLAN) IVP SCH ×5 (00:12→23:52)
[2023-04-14] MEDS: POTASSIUM CL 10MEQ/50ML IVPB 50 ML IV SCH ×7 (01:23→23:52)
[2023-04-14] MEDS: D5 1/2 NS 1000 ML IV SOLUTION 1,000 ML IV SCH ×4 (01:25→23:52)
[2023-04-14] MEDS: 1/2 NS IV SOLUTION 1,000 ML IV SCH ×5 (04:00→20:14)
[2023-04-14 05:50] LABS: BASOPHILS % (AUTO) 0 % (0-10); EOSINOPHILS % (AUTO) 0 % (0-10); HEMATOCRIT 30 % (40-54); HEMOGLOBIN 9.9 g/dL (13.3-17.7); LYMPHOCYTES % (AUTO) 18 % (12-44); MEAN CORPUSCULAR HEMOGLOBIN 26 pg (25-34); MEAN CORPUSCULAR HGB CONC 33 g/dL (32-36); MEAN CORPUSCULAR VOLUME 78 fL (80-99); MEAN PLATELET VOLUME 9.9 fL (9.0-12.2); MONOCYTES % (AUTO) 9 % (0-12); NEUTROPHILS % (AUTO) 73 % (42-75); PLATELET COUNT 234 10^3/uL (130-400)
[2023-04-14 05:56] LABS: ALBUMIN 3.3 GM/DL (3.2-4.5)
[2023-04-14 05:58] LABS: CALCIUM 7.7 MG/DL (8.5-10.1)
[2023-04-14 05:59] LABS: TOTAL PROTEIN 5.9 GM/DL (6.4-8.2)
[2023-04-14] MEDS ORDERED: KCL 20 MEQ TAB (K-DUR) PO SCH (06:00)
[2023-04-14] MEDS ORDERED: POTASSIUM CL 10MEQ/50ML IVPB 50 ML IV SCH (06:00)
[2023-04-14] MEDS ORDERED: MAGNESIUM 1 GM/100 ML IVPB 100 ML IV SCH (06:00)
[2023-04-14 06:01] LABS: BILIRUBIN,TOTAL 0.6 MG/DL (0.1-1.0)
[2023-04-14 06:02] LABS: PHOSPHORUS 3.2 MG/DL (2.3-4.7)
[2023-04-14 06:03] LABS: CREATININE SERUM 0.82 MG/DL (0.60-1.30)
[2023-04-14] MEDS: MAGNESIUM 1 GM/100 ML IVPB 100 ML IV SCH (06:33)
[2023-04-14] MEDS: KCL 20 MEQ TAB (K-DUR) PO SCH (06:33)
[2023-04-14] MEDS: DOCUSATE SODIUM 100 MG (COLACE) CAP PO SCH ×2 (08:26→21:44)
[2023-04-14] MEDS: SENNOSIDES 8.6 MG (SENOKOT) TAB PO SCH ×2 (08:26→21:44)
--- NOTE | 2023-04-14 09:03 | Tele-ICU Progress Note ---
Subjective Date Seen by a Provider: Apr 14, 2023 Time Seen by a Provider: 09:02 Subjective/Events-last exam (Tele-ICU Physician , Progress Note ) Service provided via interactive audio and video telecommunications E-CARE system to a patient admitted to ICU bed in [facility]. Patient is seen today due to persistent need of ICU care Available chart/ vitals / labs / Images reviewed Video assessment done using teleICU camera, rest of exam as per RN Discussed with RN Events overnight : Afebrile hemodynamically stable Respiratory - I/O = Drips: Pressors- no Hospital course: A/P DKA -Unclear precipitant, No suspicious for new infection *Insulin drip, continue to monitor for resolution of acidosis, AG and electrolytes. Continue hydration. - RN RENAL on NovoLog and Levemir- to resume soon *Tx Gastroparesis ALICIA mild - dehydration - resolved A nemia - delutional Lines : per , (Central Line Necessity Reviewed) Carrillo: OG: Nutrition: po Analgesia: Anxiety/ delirium VTE Prophylaxis: subhash Stress Ulcer Prophylaxis: Plans in collaboration with bedside consultants and IM MDs. Discussed with RN to reach out if any questions or concerns Case and care daily discussed on multidisciplinary rounds ( RN, PharmD, Historian Dramatic Arts , Respiratory Therapy, derrick worker ) A total of 10 minutes of critical care time was devoted to this patient today, required to treat and/or prevent further deterioration of critical care condition ( as above ) . I am remotely monitoring this patient from another state. I am unable to do the bedside exam, and history/physical and pertinent information is taken from other notes in the computer and bedside staff. Sepsis Event Evaluation Height, Weight, BMI Height: 5'11.00" Weight: 126lbs. 0.0oz. 57.930649wu; 17.41 BMI Method:Stated Exam Exam Patient acknowledged, consented, and participated in this virtual visit which was conducted using real time audio/video Vital Signs Date Time Temp Pulse Resp B/P (MAP) Pulse Ox O2 Delivery O2 Flow Rate FiO2 04/14/23 08:00 79 160/98 (118) 99 Room Air 04/14/23 08:00 96 Room Air 04/14/23 07:51 36.3 04/14/23 07:00 85 04/14/23 07:00 86 131/78 (95) 99 Room Air 04/14/23 06:00 91 128/81 (97) 99 Room Air 04/14/23 05:00 90 109/57 (74) 99 Room Air 04/14/23 04:00 86 121/91 (101) 99 Room Air 04/14/23 04:00 97 Room Air 04/14/23 03:00 90 117/81 (93) 99 Room Air 04/14/23 02:00 93 118/70 (86) 98 Room Air 04/14/23 01:00 97 120/72 (88) 98 Room Air 04/14/23 01:00 106 04/14/23 00:00 99 Room Air 04/14/23 00:00 98 118/70 (86) 98 Room Air 04/13/23 23:00 107 118/71 (87) 97 Room Air 04/13/23 22:00 110 158/91 (113) 98 Room Air 04/13/23 21:15 125 170/94 (119) 100 Room Air 04/13/23 20:45 131 175/102 (126) 100 Room Air 04/13/23 20:22 36.6 123 100 21 04/13/23 20:15 138 165/97 (119) 100 Room Air 04/13/23 20:14 140 04/13/23 20:00 98 Room Air 04/13/23 20:00 36.4 123 22 134/86 (102) 99 Room Air 04/13/23 19:45 126 134/86 (102) 99 Room Air 04/13/23 19:30 107 127/76 (93) 96 Room Air 04/13/23 19:25 36.6 109 20 143/76 97 Room Air 04/13/23 16:08 36.6 123 24 188/106 (133) 100 Room Air I & O 04/14/23 07:00 Intake Total 5260 ml Output Total 1150 ml Balance 4110 ml Height & Weight Height: 5'11.00" Weight: 126lbs. 0.0oz. 57.614122tw; 17.41 BMI Method:Stated General Appearance: Other Capillary Refill: Less Than 3 Seconds Gastrointestinal: normal bowel sounds, soft; No guarding; tenderness (Mild tenderness mid abdomen) Results Lab Laboratory Tests 04/13/23 16:12 04/13/23 20:10 04/13/23 22:22 04/14/23 04:35 Assessment/Plan Assessment/Plan 1 MAGI FAGAN MD Apr 14, 2023 09:03
[2023-04-14] MEDS ORDERED: INSU100V16 SQ (10:36)
[2023-04-14] MEDS ORDERED: INSU100V5 SQ (10:36)
[2023-04-14] MEDS ORDERED: LISI40TA9 PO (10:36)
--- NOTE | 2023-04-14 10:38 | History & Physical-Hospitalist ---
History of Present Illness HPI/Chief Complaint Chief complaint: DKA HPI: This is a 32-year-old male CHC's recurrent DKA episodes who presented once again in DKA. Nausea and vomiting has improved. Reglan IV and Phenergan IM is very helpful for him. Source: patient Exam Limitations: no limitations Date Seen 04/14/23 Time Seen by a Provider: 11:00 Attending Physician [facility] PCP Admitting Physician: Lore Knight DO Attending Physician: Lore Knight DO Referring Physician Date of Admission Apr 13, 2023 at 19:26 Home Medications & Allergies Home Medications Reviewed patient Home Medication Reconciliation performed by pharmacy medication reconciliations nuclear monitoring technician and/or nursing. Patients Allergies have been reviewed. Allergies Allergies Coded Allergies Penicillins (Verified Allergy, Unknown, 05/23/06) Past Uwlcway-Kefbye-Gtpzkp Hx Patient Social History Marrital Status: single Employed/Student: unemployed Tobacco Use?: No Smoking Status: Former Smoker Smokeless Tobacco Frequency: Current Everyday User Use of E-Cig and/or Vaping dev: Yes E-Cig or Vaping type used: Nicotine Use of E-Cig and/or Vaping Kennedy: Current Everyday User Substance use?: No Alcohol Use?: No Pt feels they are or have been: No Immunizations Up To Date Date of Influenza Vaccine: Jun 21, 2022 First/Initial COVID19 Vaccinat: 01/05/21 Second COVID19 Vaccination Pierre: 02/04/21 Tetanus Booster (TDap): Unknown Hepatitis A: No Hepatitis B: No PED Vaccines UTD: No Date of Pneumonia Vaccine: Jul 16, 2016 Seasonal Allergies Seasonal Allergies: No Current Status Advance Directives: Unable to obtain Communicates: Verbally Primary Language: Panamanian Preferred Spoken Language: Panamanian Is interpretation needed?: No Sensory deficits: Vision impairment Implanted or Applied Medical D: None Past Medical History Pneumonia Currently Using CPAP: No Currently Using BIPAP: No Cardiomyopathy, Hypertension Sexually Transmitted Disease: No HIV/AIDS: No Gastroesophageal Reflux Diabetes, Insulin dep Loss of Vision: Denies Hearing Impairment: Denies Did You Recieve Any Treatments: No Blood Disorders: No Adverse Reaction/Blood Tranf: No PMHx: Type I Diabetes Anxiety Diabetic Retinopathy Thyrotoxicosis Pneumonia Cardiomyopathy Gastroparesis Family Medical History Cardiovascular disease 19 FATHER Hypertension 19 FATHER No Pertinent Family Hx Review of Systems Constitutional: see HPI Gastrointestinal: nausea, vomiting Physical Exam Physical Exam Vital Signs Vital Signs - First Documented 04/13/23 04/13/23 16:08 20:22 Temp 36.6 Pulse 123 Resp 24 B/P (MAP) 188/106 (133) Pulse Ox 100 O2 Delivery Room Air FiO2 21 Capillary Refill : Less Than 3 Seconds Height, Weight, BMI Height: 5'11.00" Weight: 126lbs. 0.0oz. 57.531079gf; 17.41 BMI Method:Stated General Appearance: No Apparent Distress, Chronically ill, Thin Eyes: Right Eye Normal Inspection, Right Eye PERRL HEENT: PERRL/EOMI, Normal ENT Inspection, Pharynx Normal, Moist Mucous Membranes Neck: Full Range of Motion, Normal Inspection, Non Tender Respiratory: Chest Non Tender, Lungs Clear, Normal Breath Sounds, No Accessory Muscle Use, No Respiratory Distress Cardiovascular: Regular Rate, Rhythm, No Edema, No Gallop, No JVD, No Murmur, Normal Peripheral Pulses Gastrointestinal: Normal Bowel Sounds, No Organomegaly, No Pulsatile Mass, Non Tender, Soft Back: Normal Inspection, No CVA Tenderness, No Vertebral Tenderness Extremity: Normal Capillary Refill, Normal Inspection, Normal Range of Motion, Non Tender, No Calf Tenderness, No Pedal Edema Neurologic/Psychiatric: Alert, Oriented x3, No Motor/Sensory Deficits, Normal Mood/Affect Skin: Normal Color, Warm/Dry Lymphatic: No Adenopathy Results Results/Procedures Labs Laboratory Tests 04/13/23 16:12 04/13/23 20:10 04/13/23 22:22 04/14/23 04:35 04/14/23 11:52 04/14/23 22:27 04/15/23 04:26 Patient resulted labs reviewed. Assessment/Plan Admission Diagnosis Assessment: DKA Plan: Insulin drip Antiemetics Admission Status: Inpatient Order (span 2 midnights) Reason for Inpatient Admission: DKA LORE KNIGHT DO Apr 14, 2023 10:38
[2023-04-14 12:08] LABS: POTASSIUM 3.7 MMOL/L (3.6-5.0)
[2023-04-14 12:10] LABS: CALCIUM 7.9 MG/DL (8.5-10.1)
[2023-04-14 12:14] LABS: CREATININE SERUM 0.79 MG/DL (0.60-1.30)
[2023-04-14] MEDS: ONDANSETRON 4 MG/2 ML (SDV) Z0FRAN IV PRN ×2 (14:09→19:54)
[2023-04-14] MEDS: ENOXAPARIN INJECTION 30 MG/0.3 ML SYR SC SCH (21:44)
[2023-04-14] MEDS: PROMETHAZINE INJ 25 MG/ML (PHENERGAN) AMP IM PRN (22:35)
[2023-04-14 22:45] LABS: POTASSIUM 3.7 MMOL/L (3.6-5.0)
[2023-04-14 22:46] LABS: CALCIUM 8.9 MG/DL (8.5-10.1)
[2023-04-14 22:50] LABS: CREATININE SERUM 0.9 MG/DL (0.60-1.30)
[2023-04-15] MEDS: POTASSIUM CL 10MEQ/50ML IVPB 50 ML IV SCH ×14 (02:06→22:00)
[2023-04-15] MEDS: D5 1/2 NS 1000 ML IV SOLUTION 1,000 ML IV SCH ×4 (03:59→21:51)
[2023-04-15] MEDS: 1/2 NS IV SOLUTION 1,000 ML IV SCH ×5 (04:08→21:53)
[2023-04-15 05:24] LABS: BASOPHILS % (AUTO) 0 % (0-10); EOSINOPHILS % (AUTO) 0 % (0-10); HEMATOCRIT 34 % (40-54); HEMOGLOBIN 11.1 g/dL (13.3-17.7); LYMPHOCYTES # (AUTO) 1.8 10^3/uL (1.0-4.0); LYMPHOCYTES % (AUTO) 19 % (12-44); MEAN CORPUSCULAR HEMOGLOBIN 25 pg (25-34); MEAN CORPUSCULAR HGB CONC 33 g/dL (32-36); MEAN CORPUSCULAR VOLUME 77 fL (80-99); MEAN PLATELET VOLUME 9.9 fL (9.0-12.2); MONOCYTES # (AUTO) 0.7 10^3/uL (0.0-1.0); MONOCYTES % (AUTO) 7 % (0-12); NEUTROPHILS % (AUTO) 74 % (42-75); PLATELET COUNT 247 10^3/uL (130-400); WHITE BLOOD COUNT 9.5 10^3/uL (4.3-11.0)
[2023-04-15 05:40] LABS: ALBUMIN 3.3 GM/DL (3.2-4.5); POTASSIUM 3.4 MMOL/L (3.6-5.0)
[2023-04-15 05:41] LABS: CALCIUM 8.2 MG/DL (8.5-10.1)
[2023-04-15 05:42] LABS: TOTAL PROTEIN 6.1 GM/DL (6.4-8.2)
[2023-04-15 05:44] LABS: BILIRUBIN,TOTAL 0.6 MG/DL (0.1-1.0)
[2023-04-15 05:45] LABS: PHOSPHORUS 2.8 MG/DL (2.3-4.7)
[2023-04-15 05:46] LABS: CREATININE SERUM 0.79 MG/DL (0.60-1.30)
[2023-04-15] MEDS: MAGNESIUM 1 GM/100 ML IVPB 100 ML IV SCH (06:07)
[2023-04-15] MEDS: KCL 20 MEQ TAB (K-DUR) PO SCH (06:07)
[2023-04-15] MEDS: METOCLOPRAMIDE INJ 10 MG/2 ML (REGLAN) IVP SCH ×2 (06:43→11:51)
--- NOTE | 2023-04-15 06:45 | Progress Note - Hospitalist ---
Subjective HPI/CC On Admission Date Seen by Provider: Apr 15, 2023 Time Seen by Provider: 11:00 Chief complaint: DKA HPI: This is a 32-year-old male CHC's recurrent DKA episodes who presented once again in DKA. Nausea and vomiting has improved. Reglan IV and Phenergan IM is very helpful for him. Subjective/Events-last exam Patient was feeling a little better but now he cannot eat Rechecked labs and he is in DKA again I had put orders in for fourth floor move but placed ICU orders again Review of Systems General: Fatigue Gastrointestinal: Nausea, Vomiting Objective Exam Vital Signs Vital Signs Date Time Temp Pulse Resp B/P (MAP) Pulse Ox O2 Delivery O2 Flow Rate FiO2 04/15/23 19:05 98 Room Air 04/15/23 18:56 91 04/15/23 18:00 28 155/91 (112) 04/15/23 16:00 36.8 04/13/23 20:22 21 Capillary Refill : Less Than 3 Seconds General Appearance: No Apparent Distress, WD/WN, Chronically ill Respiratory: Lungs Clear, Normal Breath Sounds Cardiovascular: Regular Rate, Rhythm Neurologic/Psychiatric: Alert, Oriented x3, No Motor/Sensory Deficits, Normal Mood/Affect Results/Procedures Lab Laboratory Tests 04/14/23 22:27 04/15/23 04:26 04/15/23 16:06 Patient resulted labs reviewed. Assessment/Plan Assessment and Plan Assess & Plan/Chief Complaint Assessment: DKA Refractory nausea and vomiting Plan: Restart insulin drip Antiemetics NORAH JOSÉ DO Apr 15, 2023 06:45
[2023-04-15] MEDS: DOCUSATE SODIUM 100 MG (COLACE) CAP PO SCH ×2 (09:10→21:52)
[2023-04-15] MEDS: SENNOSIDES 8.6 MG (SENOKOT) TAB PO SCH ×2 (09:10→21:52)
--- NOTE | 2023-04-15 09:25 | Tele-ICU Progress Note ---
Subjective Date Seen by a Provider: Apr 15, 2023 Time Seen by a Provider: 09:24 Subjective/Events-last exam (Tele-ICU Physician , Progress Note ) Service provided via interactive audio and video telecommunications E-CARE system to a patient admitted to ICU bed in [facility]. Patient is seen today due to persistent need of ICU care Available chart/ vitals / labs / Images reviewed Video assessment done using teleICU camera, rest of exam as per RN Discussed with RN Events overnight : Afebrile hemodynamically stable Respiratory - ra I/O =+ A/P DKA -Unclear precipitant, No suspicious for new infection *Insulin drip to stop , , stop hydration. - RN DIABETES on NovoLog and Levemir- to resume home regiment Gastroparesis resolved ALICIA mild - dehydration - resolved A nemia - delutional Lines : per , (Central Line Necessity Reviewed) Carrillo: OG: Nutrition: po Analgesia: Anxiety/ delirium VTE Prophylaxis: subhash Stress Ulcer Prophylaxis: Plans in collaboration with bedside consultants and IM MDs. Discussed with RN to reach out if any questions or concerns Case and care daily discussed on multidisciplinary rounds ( RN, PharmD, Websphere Commerce Developer , Respiratory Therapy, sheet metal layout worker ) A total of 5 minutes of critical care time was devoted to this patient today, required to treat and/or prevent further deterioration of critical care condition ( as above ) . I am remotely monitoring this patient from another state. I am unable to do the bedside exam, and history/physical and pertinent information is taken from other notes in the computer and bedside staff. Sepsis Event Evaluation Height, Weight, BMI Height: 5'11.00" Weight: 126lbs. 0.0oz. 57.340622qh; 17.41 BMI Method:Stated Exam Exam Patient acknowledged, consented, and participated in this virtual visit which was conducted using real time audio/video Vital Signs Date Time Temp Pulse Resp B/P (MAP) Pulse Ox O2 Delivery O2 Flow Rate FiO2 04/15/23 09:00 89 12 145/94 (111) 99 Room Air 04/15/23 08:50 96 Room Air 04/15/23 08:00 87 25 143/96 (112) 98 Room Air 04/15/23 07:00 79 15 145/82 (103) 99 Room Air 04/15/23 07:00 99 04/15/23 06:00 75 13 121/74 (90) 99 Room Air 04/15/23 05:00 70 14 131/84 (100) 98 Room Air 04/15/23 04:00 99 Room Air 04/15/23 04:00 68 16 120/78 (92) 98 Room Air 04/15/23 03:00 78 20 125/69 (87) 98 Room Air 04/15/23 02:00 87 20 145/89 (107) 98 Room Air 04/15/23 01:00 95 20 151/91 (111) 98 Room Air 04/15/23 01:00 95 04/15/23 00:30 118 15 164/95 (118) 97 Room Air 04/15/23 00:00 97 Room Air 04/14/23 23:00 105 19 178/115 (136) 99 Room Air 04/14/23 22:14 101 18 184/111 (135) 100 Room Air 04/14/23 21:00 81 22 157/96 (116) 98 Room Air 04/14/23 20:13 98 Room Air 04/14/23 20:00 79 32 160/78 (105) 99 Room Air 04/14/23 19:36 36.7 04/14/23 19:05 99 Room Air 04/14/23 19:00 78 19 145/105 (118) 98 Room Air 04/14/23 19:00 78 04/14/23 18:00 86 21 174/107 (129) 99 Room Air 04/14/23 17:00 80 10 157/87 (110) 99 Room Air 04/14/23 16:00 92 22 164/96 (118) 99 Room Air 04/14/23 16:00 96 Room Air 04/14/23 15:51 36.7 04/14/23 15:00 81 13 177/106 (129) 100 Room Air 04/14/23 14:00 105 174/104 (127) 99 Room Air 04/14/23 13:00 102 152/95 (114) 99 Room Air 04/14/23 12:52 88 04/14/23 12:28 96 Room Air 04/14/23 12:04 36.1 04/14/23 12:00 92 153/107 (122) 100 Room Air 04/14/23 11:00 89 161/101 (121) 100 Room Air 04/14/23 10:00 82 134/96 (109) 100 Room Air I & O 04/15/23 07:00 Intake Total 2210 ml Output Total 6050 ml Balance -3840 ml Height & Weight Height: 5'11.00" Weight: 126lbs. 0.0oz. 57.486667tl; 17.41 BMI Method:Stated General Appearance: No Apparent Distress, Chronically ill, Thin HEENT: PERRL/EOMI, Normal ENT Inspection, Pharynx Normal, Moist Mucous Membranes Neck: Full Range of Motion, Normal Inspection, Non Tender Respiratory: Chest Non Tender, Lungs Clear, Normal Breath Sounds, No Accessory Muscle Use, No Respiratory Distress Cardiovascular: Regular Rate, Rhythm, No Edema, No Gallop, No JVD, No Murmur, N ormal Peripheral Pulses Capillary Refill: Less Than 3 Seconds Gastrointestinal: normal bowel sounds, soft; No guarding; tenderness (Mild tenderness mid abdomen) Extremity: Normal Capillary Refill, Normal Inspection, Normal Range of Motion, Non Tender, No Calf Tenderness, No Pedal Edema Neurologic/Psychiatric: Alert, Oriented x3, No Motor/Sensory Deficits, Normal Mood/Affect Skin: Normal Color, Warm/Dry Lymphatic: No Adenopathy Results Lab Laboratory Tests 04/13/23 16:12 04/13/23 20:10 04/13/23 22:22 04/14/23 04:35 04/14/23 11:52 04/14/23 22:27 04/15/23 04:26 Assessment/Plan Assessment/Plan 1 MAGI FAGAN MD Apr 15, 2023 09:25
[2023-04-15] MEDS: ONDANSETRON 4 MG/2 ML (SDV) Z0FRAN IV PRN (13:11)
[2023-04-15] MEDS ORDERED: inSUlin ASPART (NovoLOG) 1 UNIT/0.01 ML (CHARGE PER UNIT) SC SCH (15:00)
[2023-04-15] MEDS ORDERED: 1/2 NS IV SOLUTION 1,000 ML IV SCH (15:30)
[2023-04-15] MEDS ORDERED: 1/2 NS IV SOLUTION 1,000 ML IV ONE (15:35)
[2023-04-15] MEDS: METOCLOPRAMIDE 10 MG (REGLAN) TAB PO SCH ×2 (15:39→21:52)
[2023-04-15] MEDS: PROMETHAZINE INJ 25 MG/ML (PHENERGAN) AMP IM PRN (15:45)
[2023-04-15 16:41] LABS: POTASSIUM 3.4 MMOL/L (3.6-5.0)
[2023-04-15 16:42] LABS: CALCIUM 9.3 MG/DL (8.5-10.1)
[2023-04-15 16:46] LABS: CREATININE SERUM 0.79 MG/DL (0.60-1.30)
[2023-04-15] MEDS ORDERED: NS IV 500 ML 500 ML IV PRN (17:00)
[2023-04-15] MEDS ORDERED: NS IV 1000 ML 1,000 ML IV SCH (17:00)
[2023-04-15] MEDS ORDERED: D5 1/2 NS 1000 ML IV SOLUTION 1,000 ML IV ONE (17:17)
[2023-04-15] MEDS ORDERED: POTASSIUM CL 10MEQ/50ML IVPB 50 ML IV ONE (19:23)
[2023-04-15 20:26] LABS: POTASSIUM 4.2 MMOL/L (3.6-5.0)
[2023-04-15 20:27] LABS: CALCIUM 8.3 MG/DL (8.5-10.1)
[2023-04-15 20:32] LABS: CREATININE SERUM 0.8 MG/DL (0.60-1.30)
[2023-04-15] MEDS: ENOXAPARIN INJECTION 30 MG/0.3 ML SYR SC SCH (21:52)
[2023-04-16] MEDS: POTASSIUM CL 10MEQ/50ML IVPB 50 ML IV SCH ×10 (00:06→22:29)
--- NOTE | 2023-04-16 00:07 | Tele-ICU Progress Note ---
Subjective Date Seen by a Provider: Apr 16, 2023 Time Seen by a Provider: 00:05 Subjective/Events-last exam called for POC glu 120 x 2, being treated for DKA, Hx of frequent admissions, Getting D5W/0.45NS @ 250 mL/h, Tried to eat lunch but vomiited Now on IV insulin @ 0.5 U/h, will lower to 0.3 U/h and follow POC glu Sepsis Event Evaluation Height, Weight, BMI Height: 5'11.00" Weight: 126lbs. 0.0oz. 57.368828hi; 17.41 BMI Method:Stated Exam Exam Patient acknowledged, consented, and participated in this virtual visit which was conducted using real time audio/video Vital Signs Date Time Temp Pulse Resp B/P (MAP) Pulse Ox O2 Delivery O2 Flow Rate FiO2 04/15/23 23:00 80 20 126/81 (96) 98 Room Air 04/15/23 22:00 90 18 140/98 (112) 99 Room Air 04/15/23 21:00 92 16 152/99 (116) 99 Room Air 04/15/23 20:00 82 21 137/97 (110) 98 Room Air 04/15/23 20:00 97 Room Air 04/15/23 19:05 98 Room Air 04/15/23 19:00 85 24 132/87 (102) 98 Room Air 04/15/23 18:56 91 04/15/23 18:00 98 28 155/91 (112) 98 Room Air 04/15/23 17:00 98 20 168/109 (128) 98 Room Air 04/15/23 16:00 36.8 04/15/23 16:00 105 24 167/103 (124) 99 Room Air 04/15/23 15:32 100 Room Air 04/15/23 13:00 92 16 173/107 (129) 100 Room Air 04/15/23 13:00 102 04/15/23 12:00 90 20 152/108 (123) 100 Room Air 04/15/23 11:50 36.7 04/15/23 11:00 78 22 146/89 (108) 98 Room Air 04/15/23 10:00 88 18 140/85 (103) 99 Room Air 04/15/23 09:00 89 12 145/94 (111) 99 Room Air 04/15/23 08:50 96 Room Air 04/15/23 08:00 87 25 143/96 (112) 98 Room Air 04/15/23 07:00 79 15 145/82 (103) 99 Room Air 04/15/23 07:00 99 04/15/23 06:00 75 13 121/74 (90) 99 Room Air 04/15/23 05:00 70 14 131/84 (100) 98 Room Air 04/15/23 04:00 99 Room Air 04/15/23 04:00 68 16 120/78 (92) 98 Room Air 04/15/23 03:00 78 20 125/69 (87) 98 Room Air 04/15/23 02:00 87 20 145/89 (107) 98 Room Air 04/15/23 01:00 95 20 151/91 (111) 98 Room Air 04/15/23 01:00 95 04/15/23 00:30 118 15 164/95 (118) 97 Room Air I & O 04/16/23 07:00 Intake Total 2680 ml Output Total 3025 ml Balance -345 ml Height & Weight Height: 5'11.00" Weight: 126lbs. 0.0oz. 57.737494uj; 17.41 BMI Method:Stated General Appearance: No Apparent Distress, WD/WN, Chronically ill HEENT: PERRL/EOMI, Normal ENT Inspection, Pharynx Normal, Moist Mucous Membranes Neck: Full Range of Motion, Normal Inspection, Non Tender Respiratory: Lungs Clear, Normal Breath Sounds Cardiovascular: Regular Rate, Rhythm Capillary Refill: Less Than 3 Seconds Gastrointestinal: normal bowel sounds, soft; No guarding; tenderness (Mild tenderness mid abdomen) Extremity: Normal Capillary Refill, Normal Inspection, Normal Range of Motion, Non Tender, No Calf Tenderness, No Pedal Edema Neurologic/Psychiatric: Alert, Oriented x3, No Motor/Sensory Deficits, Normal Mood/Affect Skin: Normal Color, Warm/Dry Lymphatic: No Adenopathy Results Lab Laboratory Tests 04/14/23 04:35 04/14/23 11:52 04/14/23 22:27 04/15/23 04:26 04/15/23 16:06 04/15/23 19:59 Assessment/Plan Assessment/Plan called for POC glu 120 x 2, being treated for DKA, Hx of frequent admissions, Getting D5W/0.45NS @ 250 mL/h, Tried to eat lunch but vomiited Now on IV insulin @ 0.5 U/h, will lower to 0.3 U/h and follow POC glu Critical Care: Critically Ill Patient GRICELDA HARRISON MD Apr 16, 2023 00:07
[2023-04-16] MEDS: 1/2 NS IV SOLUTION 1,000 ML IV SCH ×6 (01:00→21:00)
[2023-04-16 01:21] LABS: CALCIUM 8.5 MG/DL (8.5-10.1)
[2023-04-16 01:25] LABS: CREATININE SERUM 0.76 MG/DL (0.60-1.30)
[2023-04-16] MEDS: D5 1/2 NS 1000 ML IV SOLUTION 1,000 ML IV SCH ×5 (01:46→21:46)
[2023-04-16] MEDS: METOCLOPRAMIDE 10 MG (REGLAN) TAB PO SCH ×4 (05:57→20:53)
[2023-04-16 06:11] LABS: BASOPHILS % (AUTO) 0 % (0-10); EOSINOPHILS # (AUTO) 0.1 10^3/uL (0.0-0.3); EOSINOPHILS % (AUTO) 1 % (0-10); HEMATOCRIT 34 % (40-54); HEMOGLOBIN 11.1 g/dL (13.3-17.7); LYMPHOCYTES # (AUTO) 1.5 10^3/uL (1.0-4.0); LYMPHOCYTES % (AUTO) 23 % (12-44); MEAN CORPUSCULAR HEMOGLOBIN 26 pg (25-34); MEAN CORPUSCULAR HGB CONC 33 g/dL (32-36); MEAN CORPUSCULAR VOLUME 77 fL (80-99); MEAN PLATELET VOLUME 9.2 fL (9.0-12.2); MONOCYTES # (AUTO) 0.5 10^3/uL (0.0-1.0); MONOCYTES % (AUTO) 8 % (0-12); NEUTROPHILS # (AUTO) 4.3 10^3/uL (1.8-7.8); NEUTROPHILS % (AUTO) 67 % (42-75); PLATELET COUNT 228 10^3/uL (130-400); WHITE BLOOD COUNT 6.4 10^3/uL (4.3-11.0)
[2023-04-16 06:21] LABS: POTASSIUM 4.2 MMOL/L (3.6-5.0)
[2023-04-16 06:22] LABS: CALCIUM 8.2 MG/DL (8.5-10.1)
[2023-04-16 06:26] LABS: CREATININE SERUM 0.77 MG/DL (0.60-1.30); PHOSPHORUS 2.6 MG/DL (2.3-4.7)
[2023-04-16 06:29] LABS: MAGNESIUM 1.8 MG/DL (1.6-2.4)
[2023-04-16] MEDS: MAGNESIUM 1 GM/100 ML IVPB 100 ML IV SCH (06:55)
[2023-04-16] MEDS: KCL 20 MEQ TAB (K-DUR) PO SCH (06:56)
--- NOTE | 2023-04-16 07:28 | Progress Note - Hospitalist ---
Subjective HPI/CC On Admission Date Seen by Provider: Apr 16, 2023 Time Seen by Provider: 11:00 Chief complaint: DKA HPI: This is a 32-year-old male CHC's recurrent DKA episodes who presented once again in DKA. Nausea and vomiting has improved. Reglan IV and Phenergan IM is very helpful for him. Subjective/Events-last exam Patient still having nausea and vomiting Remains on insulin drip Review of Systems General: Fatigue, Malaise Gastrointestinal: Nausea, Vomiting Objective Exam Vital Signs Vital Signs Date Time Temp Pulse Resp B/P (MAP) Pulse Ox O2 Delivery O2 Flow Rate FiO2 04/16/23 16:00 95 121/80 (94) 98 Room Air 04/16/23 16:00 36.2 04/16/23 14:00 21 04/16/23 09:10 21 04/16/23 08:49 0.00 Capillary Refill : Less Than 3 Seconds General Appearance: No Apparent Distress, WD/WN, Chronically ill Respiratory: Lungs Clear, Normal Breath Sounds Cardiovascular: Regular Rate, Rhythm Neurologic/Psychiatric: Alert, Oriented x3, Depressed Affect Results/Procedures Lab Laboratory Tests 04/15/23 19:59 04/16/23 01:00 04/16/23 05:57 04/16/23 09:08 Patient resulted labs reviewed. Assessment/Plan Assessment and Plan Assess & Plan/Chief Complaint Assessment: DKA Refractory nausea and vomiting Plan: Restart insulin drip Antiemetics Critical Care Critically Ill Patient ARNAVNORAH LI Apr 16, 2023 07:28
[2023-04-16] MEDS: SENNOSIDES 8.6 MG (SENOKOT) TAB PO SCH ×2 (08:31→21:00)
[2023-04-16] MEDS: DOCUSATE SODIUM 100 MG (COLACE) CAP PO SCH ×2 (08:31→21:00)
[2023-04-16] MEDS: lisINopril 40 MG (PRINIVIL) TABLET PO SCH (08:38)
[2023-04-16] MEDS: PANTOPRAZOLE 40 MG (PROTONIX) TAB PO SCH (08:38)
[2023-04-16 09:10] VITALS: BP 171/100
[2023-04-16 09:30] LABS: CALCIUM 8.9 MG/DL (8.5-10.1)
[2023-04-16 09:34] LABS: CREATININE SERUM 0.84 MG/DL (0.60-1.30)
[2023-04-16] MEDS: PROMETHAZINE INJ 25 MG/ML (PHENERGAN) AMP IM PRN ×2 (09:34→13:53)
--- NOTE | 2023-04-16 11:47 | Tele-ICU Progress Note ---
Subjective Date Seen by a Provider: Apr 16, 2023 Time Seen by a Provider: 11:46 Subjective/Events-last exam (Tele-ICU Physician , Progress Note ) Service provided via interactive audio and video telecommunications E-CARE system to a patient admitted to ICU bed in [facility]. 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 Discussed with RN to reach out if any questions or concerns Case and care daily discussed on multidisciplinary rounds ( RN, PharmD, Floor Person , Respiratory Therapy, sill worker ) A total of 5 minutes of critical care time was devoted to this patient today, required to treat and/or prevent further deterioration of critical care conditi on ( as above ) . I am remotely monitoring this patient from another state. I am unable to do the bedside exam, and history/physical and pertinent information is taken from other notes in the computer and bedside staff. Sepsis Event Evaluation Height, Weight, BMI Height: 5'11.00" Weight: 126lbs. 0.0oz. 57.644149qz; 17.41 BMI Method:Stated Exam Exam Patient acknowledged, consented, and participated in this virtual visit which was conducted using real time audio/video Vital Signs Date Time Temp Pulse Resp B/P (MAP) Pulse Ox O2 Delivery O2 Flow Rate FiO2 04/16/23 11:00 91 178/116 (136) 99 Room Air 04/16/23 10:00 101 16 172/100 (124) 99 Room Air 04/16/23 09:10 36.6 124 99 21 04/16/23 09:00 116 25 187/116 (139) 99 Room Air 04/16/23 08:49 99 Room Air 0.00 04/16/23 08:38 36.6 04/16/23 08:00 100 22 171/100 (123) 98 Room Air 04/16/23 07:00 77 16 129/89 (102) 98 Room Air 04/16/23 07:00 79 04/16/23 06:00 85 14 156/93 (114) 99 Room Air 04/16/23 05:00 93 19 174/102 (126) 99 Room Air 04/16/23 04:00 69 20 118/84 (95) 99 Room Air 04/16/23 04:00 99 Room Air 04/16/23 03:00 69 20 120/82 (95) 99 Room Air 04/16/23 02:00 70 16 125/85 (98) 99 Room Air 04/16/23 01:46 76 04/16/23 01:00 70 18 129/97 (108) 98 Room Air 04/16/23 00:00 99 Room Air 04/16/23 00:00 91 24 138/96 (110) 99 Room Air 04/15/23 23:00 80 20 126/81 (96) 98 Room Air 04/15/23 22:00 90 18 140/98 (112) 99 Room Air 04/15/23 21:00 92 16 152/99 (116) 99 Room Air 04/15/23 20:00 82 21 137/97 (110) 98 Room Air 04/15/23 20:00 97 Room Air 04/15/23 19:05 98 Room Air 04/15/23 19:00 85 24 132/87 (102) 98 Room Air 04/15/23 18:56 91 04/15/23 18:00 98 28 155/91 (112) 98 Room Air 04/15/23 17:00 98 20 168/109 (128) 98 Room Air 04/15/23 16:00 36.8 04/15/23 16:00 105 24 167/103 (124) 99 Room Air 04/15/23 15:32 100 Room Air 04/15/23 13:00 92 16 173/107 (129) 100 Room Air 04/15/23 13:00 102 04/15/23 12:00 90 20 152/108 (123) 100 Room Air 04/15/23 11:50 36.7 I & O0 04/16/23 07:00 Intake Total 5150 ml Output Total 3875 ml Balance 1275 ml Height & Weight Height: 5'11.00" Weight: 126lbs. 0.0oz. 57.907471rg; 17.41 BMI Method:Stated General Appearance: No Apparent Distress, WD/WN, Chronically ill HEENT: PERRL/EOMI, Normal ENT Inspection, Pharynx Normal, Moist Mucous Membran es Neck: Full Range of Motion, Normal Inspection, Non Tender Respiratory: Lungs Clear, Normal Breath Sounds Cardiovascular: Regular Rate, Rhythm Capillary Refill: Less Than 3 Seconds Gastrointestinal: normal bowel sounds, soft; No guarding; tenderness (Mild tenderness mid abdomen) Extremity: Normal Capillary Refill, Normal Inspection, Normal Range of Motion, Non Tender, No Calf Tenderness, No Pedal Edema Neurologic/Psychiatric: Alert, Oriented x3, No Motor/Sensory Deficits, Normal Mood/Affect Skin: Normal Color, Warm/Dry Lymphatic: No Adenopathy Results Lab Laboratory Tests 04/14/23 11:52 04/14/23 22:27 04/15/23 04:26 04/15/23 16:06 04/15/23 19:59 04/16/23 01:00 04/16/23 05:57 04/16/23 09:08 Assessment/Plan Assessment/Plan 1 MAGI FAGAN MD Apr 16, 2023 11:47
[2023-04-16] MEDS: ONDANSETRON 4 MG/2 ML (SDV) Z0FRAN IV PRN (19:04)
[2023-04-16] MEDS: ENOXAPARIN INJECTION 30 MG/0.3 ML SYR SC SCH (20:53)
[2023-04-17] MEDS: POTASSIUM CL 10MEQ/50ML IVPB 50 ML IV SCH ×6 (00:42→12:55)
[2023-04-17] MEDS: 1/2 NS IV SOLUTION 1,000 ML IV SCH ×6 (01:00→21:07)
[2023-04-17] MEDS: D5 1/2 NS 1000 ML IV SOLUTION 1,000 ML IV SCH ×2 (01:59→06:09)
[2023-04-17 04:25] LABS: BASOPHILS # (AUTO) 0.1 10^3/uL (0.0-0.1); BASOPHILS % (AUTO) 0 % (0-10); EOSINOPHILS # (AUTO) 0.1 10^3/uL (0.0-0.3); EOSINOPHILS % (AUTO) 1 % (0-10); HEMATOCRIT 32 % (40-54); HEMOGLOBIN 10.8 g/dL (13.3-17.7); LYMPHOCYTES # (AUTO) 2.4 10^3/uL (1.0-4.0); LYMPHOCYTES % (AUTO) 21 % (12-44); MEAN CORPUSCULAR HEMOGLOBIN 26 pg (25-34); MEAN CORPUSCULAR HGB CONC 34 g/dL (32-36); MEAN CORPUSCULAR VOLUME 77 fL (80-99); MEAN PLATELET VOLUME 9.4 fL (9.0-12.2); MONOCYTES # (AUTO) 0.8 10^3/uL (0.0-1.0); MONOCYTES % (AUTO) 7 % (0-12); NEUTROPHILS # (AUTO) 8.3 10^3/uL (1.8-7.8); NEUTROPHILS % (AUTO) 70 % (42-75); PLATELET COUNT 240 10^3/uL (130-400); WHITE BLOOD COUNT 11.7 10^3/uL (4.3-11.0)
[2023-04-17 04:41] LABS: ALBUMIN 2.8 GM/DL (3.2-4.5); CHLORIDE 109 MMOL/L (98-107); POTASSIUM 3.8 MMOL/L (3.6-5.0); SODIUM 137 MMOL/L (135-145)
[2023-04-17 04:43] LABS: CALCIUM 8.1 MG/DL (8.5-10.1)
[2023-04-17 04:44] LABS: GLUCOSE 123 MG/DL (70-105); TOTAL PROTEIN 5.3 GM/DL (6.4-8.2)
[2023-04-17 04:45] LABS: CARBON DIOXIDE 23 MMOL/L (21-32)
[2023-04-17 04:46] LABS: BILIRUBIN,TOTAL 0.5 MG/DL (0.1-1.0)
[2023-04-17 04:47] LABS: ALKALINE PHOSPHATASE 73 U/L (40-136); PHOSPHORUS 3.2 MG/DL (2.3-4.7)
[2023-04-17 04:48] LABS: CREATININE SERUM 0.81 MG/DL (0.60-1.30); GFR ESTIMATED 119
[2023-04-17 04:49] LABS: BUN/CREATININE RATIO 7
[2023-04-17 04:50] LABS: MAGNESIUM 1.8 MG/DL (1.6-2.4)
[2023-04-17 04:51] LABS: ALANINE AMINOTRANSFERASE < 6 U/L (0-55)
[2023-04-17] MEDS: MAGNESIUM 1 GM/100 ML IVPB 100 ML IV SCH (06:00)
[2023-04-17] MEDS: KCL 20 MEQ TAB (K-DUR) PO SCH (06:00)
[2023-04-17] MEDS: METOCLOPRAMIDE 10 MG (REGLAN) TAB PO SCH ×4 (06:09→20:57)
[2023-04-17] MEDS: PANTOPRAZOLE 40 MG (PROTONIX) TAB PO SCH (08:33)
[2023-04-17] MEDS: lisINopril 40 MG (PRINIVIL) TABLET PO SCH (08:33)
[2023-04-17] MEDS: DOCUSATE SODIUM 100 MG (COLACE) CAP PO SCH ×2 (09:00→20:57)
[2023-04-17] MEDS: SENNOSIDES 8.6 MG (SENOKOT) TAB PO SCH ×2 (09:00→20:57)
--- NOTE | 2023-04-17 09:10 | Tele-ICU Progress Note ---
Subjective Date Seen by a Provider: Apr 17, 2023 Time Seen by a Provider: 09:10 Subjective/Events-last exam (Tele-ICU Physician , Progress Note ) Service provided via interactive audio and video telecommunications E-CARE system to a patient admitted to ICU bed in [facility]. Patient is seen today due to persistent need of ICU care Available chart/ vitals / labs / Images reviewed Video assessment done using teleICU camera, rest of exam as per RN Discussed with RN Events overnight : remained on insulin drip due to vomiting and intolerance to food. this am so far tolerated breakfast. om reglan for gastroparesis. 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 Discussed with RN to reach out if any questions or concerns Case and care daily discussed on multidisciplinary rounds ( RN, PharmD, Production Line Manager , Respiratory Therapy, central office worker ) Sepsis Event Evaluation Height, Weight, BMI Height: 5'11.00" Weight: 126lbs. 0.0oz. 57.046167pv; 18.14 BMI Method:Stated Exam Exam Patient acknowledged, consented, and participated in this virtual visit which was conducted using real time audio/video Vital Signs Date Time Temp Pulse Resp B/P (MAP) Pulse Ox O2 Delivery O2 Flow Rate FiO2 04/17/23 08:00 97 Room Air 04/17/23 07:41 99 Room Air 0.00 04/17/23 07:40 36.7 04/17/23 07:36 88 04/17/23 07:00 103 12 148/88 (108) 100 Room Air 04/17/23 06:00 77 19 150/106 (121) 99 Room Air 04/17/23 05:00 75 9 154/110 (125) 99 Room Air 04/17/23 04:00 98 Room Air 04/17/23 04:00 87 22 141/95 (110) 99 Room Air 04/17/23 03:35 36.1 04/17/23 03:00 90 28 135/86 (102) 99 Room Air 04/17/23 02:00 90 13 112/73 (86) 99 Room Air 04/17/23 01:00 84 04/17/23 01:00 84 10 139/98 (112) 99 Room Air 04/17/23 00:00 85 18 113/66 (82) 98 Room Air 04/16/23 23:59 96 Room Air 04/16/23 23:00 84 16 121/79 (93) 99 Room Air 04/16/23 22:15 88 17 122/71 (88) 98 Room Air 04/16/23 22:00 92 21 107/73 (84) 98 Room Air 04/16/23 21:00 102 24 120/74 (89) 98 Room Air 04/16/23 20:30 107 27 129/88 (102) 98 Room Air 04/16/23 20:00 109 24 166/109 (128) 99 Room Air 04/16/23 20:00 36.8 04/16/23 20:00 97 Room Air 04/16/23 19:00 133 12 176/99 (124) 98 Room Air 04/16/23 19:00 133 04/16/23 18:59 Room Air 04/16/23 18:00 105 28 156/106 (123) 100 Room Air 04/16/23 17:00 95 20 125/94 (104) 99 Room Air 04/16/23 16:00 95 121/80 (94) 98 Room Air 04/16/23 16:00 96 Room Air 04/16/23 16:00 36.2 04/16/23 15:00 105 168/112 (130) 97 Room Air 04/16/23 14:00 112 21 181/109 (133) 96 Room Air 04/16/23 13:00 98 168/109 (128) 99 Room Air 04/16/23 12:52 101 04/16/23 12:00 36.4 04/16/23 12:00 96 Room Air 04/16/23 12:00 104 158/88 (111) 99 Room Air 04/16/23 11:00 91 178/116 (136) 99 Room Air 04/16/23 10:00 101 16 172/100 (124) 99 Room Air I & O 04/17/23 07:00 Intake Total 4000 ml Output Total 3050 ml Balance 950 ml Height & Weight Height: 5'11.00" Weight: 126lbs. 0.0oz. 57.658669gr; 18.14 BMI Method:Stated General Appearance: No Apparent Distress, WD/WN, Chronically ill HEENT: PERRL/EOMI, Normal ENT Inspection, Pharynx Normal, Moist Mucous Membranes Neck: Full Range of Motion, Normal Inspection, Non Tender Respiratory: Lungs Clear, Normal Breath Sounds Cardiovascular: Regular Rate, Rhythm Capillary Refill: Less Than 3 Seconds Gastrointestinal: normal bowel sounds, soft; No guarding; tenderness (Mild tenderness mid abdomen) Extremity: Normal Capillary Refill, Normal Inspection, Normal Range of Motion, Non Tender, No Calf Tenderness, No Pedal Edema Neurologic/Psychiatric: Alert, Oriented x3, Depressed Affect Skin: Normal Color, Warm/Dry Lymphatic: No Adenopathy Results Lab Laboratory Tests 04/15/23 16:06 04/15/23 19:59 04/16/23 01:00 04/16/23 05:57 04/16/23 09:08 04/17/23 04:03 Assessment/Plan Assessment/Plan as above Critical Care: Critically Ill Patient Time spent with patient (mins): 25 ALLYN WALTON MD Apr 17, 2023 09:10
--- NOTE | 2023-04-17 10:43 | Progress Note ---
Subjective Subjective/Events-last exam States feeling better, tolerating food. Denies other concerns. Objective Exam Last Set of Vital Signs Vital Signs Date Time Temp Pulse Resp B/P (MAP) Pulse Ox O2 Delivery O2 Flow Rate FiO2 04/17/23 10:00 96 24 144/98 (113) 99 Room Air 04/17/23 07:41 0.00 04/17/23 07:40 36.7 04/16/23 09:10 21 Capillary Refill : Less Than 3 Seconds I&O Intake and Output 04/17/23 00:00 Intake Total 4870 ml Output Total 2750 ml Balance 2120 ml Intake Oral 670 ml IV Total 4200 ml Output Urine Total 2750 ml # Voids 1 # Bowel Movements 2 # Emeses 2 General: Alert, No Acute Distress Lungs: Clear to Auscultation, Normal Air Movement Heart: Regular Rate, No Murmurs Abdomen: Normal Bowel Sounds, Soft Extremities: No Edema Psych/Mental Status: Mental Status NL Results/Procedures Lab Laboratory Tests 04/16/23 11:13: Glucometer 103 04/16/23 11:46: Glucometer 218H 04/16/23 12:45: Glucometer 217H 04/16/23 13:49: Glucometer 240H 04/16/23 14:41: Glucometer 230H 04/16/23 15:46: Glucometer 175H 04/16/23 16:47: Glucometer 103 04/16/23 16:48: Beta-Hydroxybutyrate (Chem panel) 0.03 04/16/23 18:01: Glucometer 112H 04/16/23 19:23: Glucometer 201H 04/16/23 20:56: Glucometer 195H 04/16/23 22:09: Glucometer 176H 04/16/23 23:01: Glucometer 133H 04/16/23 23:44: Glucometer 160H 04/17/23 00:47: Glucometer 146H 04/17/23 02:04: Glucometer 105 04/17/23 03:38: Glucometer 117H 04/17/23 04:03: White Blood Count 11.7H, Red Blood Count 4.21L, Hemoglobin 10.8L, Hematocrit 32L , Mean Corpuscular Volume 77L, Mean Corpuscular Hemoglobin 26, Mean Corpuscular Hemoglobin Concent 34, Red Cell Distribution Width 14.6H, Platelet Count 240, Mean Platelet Volume 9.4, Immature Granulocyte % (Auto) 0, Neutrophils (%) (Auto) 70, Lymphocytes (%) (Auto) 21, Monocytes (%) (Auto) 7, Eosinophils (%) (Auto) 1, Basophils (%) (Auto) 0, Neutrophils # (Auto) 8.3H, Lymphocytes # (Auto) 2.4, Monocytes # (Auto) 0.8, Eosinophils # (Auto) 0.1, Basophils # (Auto) 0.1, Immature Granulocyte # (Auto) 0.0, Sodium Level 137, Potassium Level 3.8, Chloride Level 109H, Carbon Dioxide Level 23, Anion Gap 5, Blood Urea Nitrogen 6L, Creatinine 0.81, Estimat Glomerular Filtration Rate 119, BUN/Creatinine Ratio 7, Glucose Level 123H, Calcium Level 8.1L, Corrected Calcium 9.1, Phosphorus Level 3.2, Magnesium Level 1.8, Total Bilirubin 0.5, Aspartate Amino Transf (AST/SGOT) 9, Alanine Aminotransferase (ALT/SGPT) < 6, Alkaline Phosphatase 73, Total Protein 5.3L, Albumin 2.8L 04/17/23 04:58: Glucometer 109 04/17/23 06:13: Glucometer 97 04/17/23 06:50: Glucometer 117H 04/17/23 07:48: Glucometer 177H 04/17/23 08:57: Glucometer 196H 04/17/23 09:41: Glucometer 256H 04/17/23 10:36: Glucometer 262H Microbiology 04/13/23 MRSA Screen - Final, Complete MRSA not isolated Assessment/Plan Assessment/Plan (1) DKA (diabetic ketoacidosis) Status: Resolved Assessment & Plan: Resolved, will stop insulin drip and restart basal bolus. Qualifiers: Qualified Codes: E10.10 - Type 1 diabetes mellitus with ketoacidosis without coma (2) Type 1 diabetes mellitus Status: Chronic (3) DVT prophylaxis Status: Acute Assessment & Plan: Enoxaparin DEANNE BLANCO MD Apr 17, 2023 10:43
[2023-04-17 12:16] LABS: POTASSIUM 4.2 MMOL/L (3.6-5.0)
[2023-04-17 12:17] LABS: CALCIUM 8.3 MG/DL (8.5-10.1)
[2023-04-17 12:22] LABS: CREATININE SERUM 0.79 MG/DL (0.60-1.30)
[2023-04-17] MEDS: inSUlin ASPART (NovoLOG) 1 UNIT/0.01 ML (CHARGE PER UNIT) SC SCH ×3 (16:05→20:57)
[2023-04-17] MEDS: ENOXAPARIN INJECTION 30 MG/0.3 ML SYR SC SCH (20:56)
[2023-04-17 21:05] LABS: CALCIUM 8.6 MG/DL (8.5-10.1); CREATININE SERUM 0.89 MG/DL (0.60-1.30); POTASSIUM 4.3 MMOL/L (3.6-5.0)
[2023-04-18 03:47] LABS: BASOPHILS % (AUTO) 1 % (0-10); EOSINOPHILS # (AUTO) 0.2 10^3/uL (0.0-0.3); EOSINOPHILS % (AUTO) 3 % (0-10); HEMATOCRIT 34 % (40-54); HEMOGLOBIN 11.3 g/dL (13.3-17.7); LYMPHOCYTES # (AUTO) 2.3 10^3/uL (1.0-4.0); LYMPHOCYTES % (AUTO) 26 % (12-44); MEAN CORPUSCULAR HEMOGLOBIN 26 pg (25-34); MEAN CORPUSCULAR HGB CONC 33 g/dL (32-36); MEAN CORPUSCULAR VOLUME 77 fL (80-99); MEAN PLATELET VOLUME 9.4 fL (9.0-12.2); MONOCYTES # (AUTO) 0.7 10^3/uL (0.0-1.0); MONOCYTES % (AUTO) 8 % (0-12); NEUTROPHILS # (AUTO) 5.5 10^3/uL (1.8-7.8); NEUTROPHILS % (AUTO) 63 % (42-75); PLATELET COUNT 268 10^3/uL (130-400); WHITE BLOOD COUNT 8.8 10^3/uL (4.3-11.0)
[2023-04-18 04:02] LABS: ALBUMIN 3.3 GM/DL (3.2-4.5)
[2023-04-18 04:03] LABS: POTASSIUM 3.9 MMOL/L (3.6-5.0)
[2023-04-18 04:04] LABS: CALCIUM 8.6 MG/DL (8.5-10.1)
[2023-04-18 04:05] LABS: TOTAL PROTEIN 6.1 GM/DL (6.4-8.2)
[2023-04-18 04:07] LABS: BILIRUBIN,TOTAL 0.3 MG/DL (0.1-1.0)
[2023-04-18 04:09] LABS: CREATININE SERUM 0.85 MG/DL (0.60-1.30)
[2023-04-18 04:11] LABS: MAGNESIUM 1.9 MG/DL (1.6-2.4)
[2023-04-18] MEDS: 1/2 NS IV SOLUTION 1,000 ML IV SCH ×3 (05:00→09:51)
[2023-04-18] MEDS: MAGNESIUM 1 GM/100 ML IVPB 100 ML IV SCH (05:57)
[2023-04-18] MEDS: KCL 20 MEQ TAB (K-DUR) PO SCH (05:57)
[2023-04-18] MEDS: METOCLOPRAMIDE 10 MG (REGLAN) TAB PO SCH ×2 (05:57→10:46)
[2023-04-18] MEDS: POTASSIUM CL 10MEQ/50ML IVPB 50 ML IV SCH (06:00)
[2023-04-18] MEDS: inSUlin ASPART (NovoLOG) 1 UNIT/0.01 ML (CHARGE PER UNIT) SC SCH ×3 (06:01→11:15)
[2023-04-18] MEDS ORDERED: INSU100V5 SQ (08:15)
[2023-04-18] MEDS: lisINopril 40 MG (PRINIVIL) TABLET PO SCH (09:13)
[2023-04-18] MEDS: PANTOPRAZOLE 40 MG (PROTONIX) TAB PO SCH (09:13)
[2023-04-18] MEDS: SENNOSIDES 8.6 MG (SENOKOT) TAB PO SCH (09:22)
[2023-04-18] MEDS: DOCUSATE SODIUM 100 MG (COLACE) CAP PO SCH (09:22)
--- NOTE | 2023-04-18 10:45 | Discharge Summary ---
Discharge Summary Hospital Course Problems/Diagnosis: (1) DKA (diabetic ketoacidosis) Status: Resolved Resolution Date/Time: 04/17/23 @ 13:25 Assessment & Plan: Resolved with insulin drip. Resumed home insulin but with increased levemir dose to 10 units daily with good outcome, changed home dose to 5 units twice daily. Qualifiers: Qualified Codes: E10.10 - Type 1 diabetes mellitus with ketoacidosis without coma (2) Type 1 diabetes mellitus Status: Chronic Qualifiers: Qualified Codes: E10.65 - Type 1 diabetes mellitus with hyperglycemia Hospital Course Date of Admission: Apr 13, 2023 at 19:26 Admission Diagnosis : Family Physician/Provider: [place] [place] Date of Discharge: 04/18/23 Discharge Diagnosis: See problem list Hospital Course: See problem list Labs and Pending Lab Test: Laboratory Tests 04/17/23 11:55: Sodium Level 135, Potassium Level 4.2, Chloride Level 107, Carbon Dioxide Level 21, Anion Gap 7, Blood Urea Nitrogen 3L, Creatinine 0.79, Estimat Glomerular Filtration Rate 120, BUN/Creatinine Ratio 4, Glucose Level 158H, Calcium Level 8.3L, Beta-Hydroxybutyrate (Chem panel) 0.03 04/17/23 12:37: Glucometer 125H 04/17/23 13:36: Glucometer 174H 04/17/23 14:39: Glucometer 155H 04/17/23 15:38: Glucometer 130H 04/17/23 20:41: Sodium Level 135, Potassium Level 4.3, Chloride Level 104, Carbon Dioxide Level 22, Anion Gap 9, Blood Urea Nitrogen 6L, Creatinine 0.89, Estimat Glomerular Filtration Rate 116, BUN/Creatinine Ratio 7, Glucose Level 119H, Calcium Level 8.6 04/17/23 20:49: Glucometer 128H 04/18/23 03:31: Sodium Level 136, Potassium Level 3.9, Chloride Level 103, Carbon Dioxide Level 24, Anion Gap 9, Blood Urea Nitrogen 9, Creatinine 0.85, Estimat Glomerular Filtration Rate 118, BUN/Creatinine Ratio 11, Glucose Level 94, Calcium Level 8.6, White Blood Count 8.8, Red Blood Count 4.41, Hemoglobin 11.3L, Hematocrit 34L, Mean Corpuscular Volume 77L, Mean Corpuscular Hemoglobin 26, Mean Corpuscular Hemoglobin Concent 33, Red Cell Distribution Width 14.6H, Platelet Count 268, Mean Platelet Volume 9.4, Immature Granulocyte % (Auto) 0, Neutrophils (%) (Auto) 63, Lymphocytes (%) (Auto) 26, Monocytes (%) (Auto) 8, Eosinophils (%) (Auto) 3, Basophils (%) (Auto) 1, Neutrophils # (Auto) 5.5, Lymphocytes # (Auto) 2.3, Monocytes # (Auto) 0.7, Eosinophils # (Auto) 0.2, Basophils # (Auto) 0.0, Immature Granulocyte # (Auto) 0.0, Corrected Calcium 9.2, Phosphorus Level 4.0, Magnesium Level 1.9, Total Bilirubin 0.3, Aspartate Amino Transf (AST/SGOT) 12, Alanine Aminotransferase (ALT/SGPT) 7, Alkaline Phosphatase 80, Total Protein 6.1L, Albumin 3.3 Microbiology 04/13/23 MRSA Screen - Final, Complete MRSA not isolated Home Meds Active Levemir (Insulin Determir) 100 Unit/Ml Soln 5 Units SQ BID Reported Lisinopril 40 Mg Tablet 40 Mg PO DAILY Novolog (Insulin Aspart) 100 Unit/Ml Susp Unit SQ AC USES PER SLIDING SCALE Metoclopramide HCl 10 Mg Tablet 10 Mg PO ACHS Pantoprazole Sodium 40 Mg Tablet.dr 40 Mg PO DAILY Assessment/Pt DC Instructions Follow up with Dr. Abbott within a week of discharge. Discharge Diet: ADA Diet Activity as Tolerated: Yes Discharge Physical Examination Allergies: Coded Allergies: Penicillins (Verified Allergy, Unknown, 05/23/06) General Appearance: No Apparent Distress, WD/WN Respiratory: Lungs Clear, Normal Breath Sounds Cardiovascular: Regular Rate, Rhythm, No Murmur Gastrointestinal: Normal Bowel Sounds, Non Tender, Soft Extremity: No Pedal Edema Skin: Normal Color, Warm/Dry Neurologic/Psychiatric: Alert, Normal Mood/Affect Copy Copies To 1: YUMIKO ABBOTT BETHANY N MD Apr 18, 2023 10:45
[2023-04-18 11:20] VITALS: BP 145/106
== END 2023-04-18 11:23 | disposition home or self-care (01) | DRG 638 ==
LOC: EDUNIT# 15:56 → ER 15:59 → ICU 19:26
PROVIDERS: ADMIT Internal Medicine; ATTEND Family Medicine
DX: E10.10 Type 1 diabetes mellitus with ketoacidosis without coma (principal); I42.9 Cardiomyopathy, unspecified; N17.9 Acute kidney failure, unspecified; E10.43 Type 1 diabetes mellitus with diabetic autonomic (poly)neuropathy; K31.84 Gastroparesis; E86.0 Dehydration; K21.9 Gastro-esophageal reflux disease without esophagitis; I10 Essential (primary) hypertension; D64.9 Anemia, unspecified; F17.290 Nicotine dependence, other tobacco product, uncomplicated; Z79.899 Other long term (current) drug therapy; Z88.0 Allergy status to penicillin
CPT/HCPCS: 36415; 80048; 80053; 81000; 82010; 82805; 82947; 83036; 83690; 83735; 84100; 85007; 85025; 85027; 86141; 87081; 94760; 96361; 96374; 96375

== ENCOUNTER 2023-06-06 00:24 | Inpatient (IN) | payer SELFPAY ==
[~2023-06-06] VITALS: Ht 180 cm; Wt 58.8 kg
[2023-06-06] MEDS ORDERED: NS IV 1000 ML 1,000 ML IV SCH ×5 (00:45→08:00)
[2023-06-06 01:07] LABS: BASOPHILS % (AUTO) 0 % (0-10); EOSINOPHILS % (AUTO) 0 % (0-10); HEMATOCRIT 37 % (40-54); HEMOGLOBIN 12.2 g/dL (13.3-17.7); LYMPHOCYTES # (AUTO) 1.2 10^3/uL (1.0-4.0); LYMPHOCYTES % (AUTO) 11 % (12-44); MEAN CORPUSCULAR HEMOGLOBIN 26 pg (25-34); MEAN CORPUSCULAR HGB CONC 33 g/dL (32-36); MEAN CORPUSCULAR VOLUME 78 fL (80-99); MEAN PLATELET VOLUME 9.4 fL (9.0-12.2); MONOCYTES # (AUTO) 0.4 10^3/uL (0.0-1.0); MONOCYTES % (AUTO) 4 % (0-12); NEUTROPHILS # (AUTO) 9.5 10^3/uL (1.8-7.8); NEUTROPHILS % (AUTO) 85 % (42-75); PLATELET COUNT 297 10^3/uL (130-400); WHITE BLOOD COUNT 11.1 10^3/uL (4.3-11.0)
[2023-06-06] MEDS ORDERED: ONDANSETRON INJECTION 4 MG/2 ML (SDV) IVP ONE (01:15)
[2023-06-06 01:18] LABS: ALBUMIN 4.3 GM/DL (3.2-4.5); POTASSIUM 3.2 MMOL/L (3.6-5.0)
[2023-06-06 01:19] LABS: CALCIUM 9.4 MG/DL (8.5-10.1)
[2023-06-06 01:21] LABS: TOTAL PROTEIN 7.5 GM/DL (6.4-8.2)
[2023-06-06 01:22] LABS: BILIRUBIN,TOTAL 0.6 MG/DL (0.1-1.0)
[2023-06-06 01:24] LABS: CREATININE SERUM 1.14 MG/DL (0.60-1.30)
[2023-06-06] MEDS ORDERED: POTASSIUM CL 10MEQ/50ML IVPB 50 ML IV ONE (01:45)
[2023-06-06] MEDS ORDERED: PROMETHAZINE INJ 25 MG/ML VIAL IVP ONE (01:45)
[2023-06-06 02:31] LABS: AMPHETAMINE SCREEN, URINE NEGATIVE (NEGATIVE); BARBITURATE SCREEN URINE NEGATIVE (NEGATIVE); BENZODIAZEPINES SCREEN URINE NEGATIVE (NEGATIVE); CANNABINOID SCREEN, URINE POSITIVE (NEGATIVE); COCAINE SCREEN URINE NEGATIVE (NEGATIVE); METHADONE STAT NEGATIVE (NEGATIVE); OPIATE SCREEN URINE NEGATIVE (NEGATIVE); OXYCODONE STAT NEGATIVE (NEGATIVE); PROPOXYPHENE STAT NEGATIVE (NEGATIVE); TRICYCLIC ANTIDEPRESSANTS SCRE NEGATIVE (NEGATIVE)
[2023-06-06 02:32] LABS: CLARITY,URINE CLEAR; COLOR,URINE YELLOW; GLUCOSE, URINE (UA) 3+ (NEGATIVE); KETONES,URINE 3+ (NEGATIVE); PROTEIN,URINE 3+ (NEGATIVE)
[2023-06-06 02:33] LABS: BACTERIA,URINE NEGATIVE /HPF; BILIRUBIN,URINE NEGATIVE (NEGATIVE); HYALINE CASTS, URINE RARE /LPF; LEUKOCYTE ESTERASE ,URINE NEGATIVE (NEGATIVE); NITRITE,URINE NEGATIVE (NEGATIVE)
--- NOTE | 2023-06-06 02:45 | ED General ---
General Chief Complaint: Glucose Problems Stated Complaint: POSS DKA Nursing Triage Note: PT AMB TO RM 2 WITH CC OF NAUSEA, VOMITING, AND HIGH BS SINCE 1930 ON 06/05. PT STATES LAST DOSE OF INSULIN WAS AM OF 06/05. PT A&OX4 Source of Information: Patient, Old Records Exam Limitations: No Limitations History of Present Illness Date Seen by Provider: Jun 06, 2023 Time Seen by Provider: 00:45 Initial Comments This 32-year-old man with type 1 diabetes presents to the emergency room with nausea and vomiting. He is not experiencing significant pain. He has had frequent admissions at this facility for DKA. 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 He now states he is using delta products and a vape rather than marijuana. He is afebrile. He reports last taking his short acting insulin around 1899. He last took his long-acting insulin on Monday night, June 04. Vomiting started early in the day on Monday. Allergies and Home Medications Allergies Coded Allergies: Penicillins (Verified Allergy, Unknown, 05/23/06) Patient Home Medication List Home Medication List Reviewed: Yes Amlodipine Besylate (Amlodipine Besylate) 5 Mg Tablet, 5 MG PO DAILY Prescribed by: NORAH JOSÉ on 06/09/23 1234 Insulin Aspart (Novolog) 100 Unit/Ml Susp, UNIT SQ AC, (Reported) Entered as Reported by: YUMIKO SNOW on 04/14/23 103 Last Action: Reviewed Insulin Determir (Levemir) 100 Unit/Ml Soln, 5 UNITS SQ BID, (Reported) Entered as Reported by: YUMIKO SNOW on 06/06/23 1027 Last Action: Continued Lisinopril (Lisinopril) 40 Mg Tablet, 40 MG PO DAILY, (Reported) Entered as Reported by: YUMIKO SNOW on 04/14/23 103 Last Action: Continued Metoclopramide HCl (Metoclopramide HCl) 10 Mg Tablet, 10 MG PO ACHS, (Reported) Entered as Reported by: DANNIE PERDOMO on 01/11/21951 Last Action: Reviewed Pantoprazole Sodium (Pantoprazole Sodium) 40 Mg Tablet.dr, 40 MG PO DAILY, (Reported) Entered as Reported by: DANNIE PERDOMO on 01/11/21951 Last Action: Reviewed Discontinued Medications Insulin Determir (Levemir) 100 Unit/Ml Soln, 5 UNITS SQ BID Discontinued Reason: Duplicate Order Prescribed by: DEANNE BLANCO on 04/18/23814 Last Action: Discontinued Review of Systems Review of Systems Constitutional: no symptoms reported EENTM: no symptoms reported Respiratory: no symptoms reported Cardiovascular: other (Tachycardia) Gastrointestinal: see HPI Genitourinary: no symptoms reported Musculoskeletal: no symptoms reported Skin: no symptoms reported Psychiatric/Neurological: No Symptoms Reported Hematologic/Lymphatic: No Symptoms Reported Immunological/Allergic: no symptoms reported Past Mrloskw-Vldsfy-Kuplpn Hx Patient Social History Tobacco Use?: No Use of E-Cig and/or Vaping dev: Yes E-Cig or Vaping type used: Marijuana (Delta product) Substance use?: Yes Substance type: Marijuana Alcohol Use?: No Pt feels they are or have been: No Immunizations Up To Date Tetanus Booster (TDap): Unknown PED Vaccines UTD: No First/Initial COVID19 Vaccinat: 01/05/21 Second COVID19 Vaccination Pierre: 02/04/21 Third COVID19 Vaccination Date: 02/04/21 Seasonal Allergies Seasonal Allergies: No Past Medical History Surgery/Hospitalization HX: TYPE 1 DM, DKA DENIES SURG. Surgeries: No Respiratory: Yes Pneumonia Currently Using CPAP: No Currently Using BIPAP: No Cardiac: Yes (CARDIOMYOPATHY DX 2016) Cardiomyopathy, Hypertension Neurological: No Reproductive Disorders: No Sexually Transmitted Disease: No HIV/AIDS: No Genitourinary: No Gastrointestinal: Yes (GASTROPARESIS) Gastroesophageal Reflux Musculoskeletal: No Endocrine: Yes (DX AGE 11, [place] 2001; MULTIPLE ADMITS FOR DKA) Diabetes, Insulin dep Loss of Vision: Denies Hearing Impairment: Denies Cancer: No Did You Recieve Any Treatments: No Psychosocial: Yes (Frequent marijuana use) Integumentary: Yes (WOUNDS TO LOWER LEGS-- REQUIRED WOUND CARE CLINIC TREATMENT) Blood Disorders: No Adverse Reaction/Blood Tranf: No Family Medical History Cardiovascular disease 19 FATHER Hypertension 19 FATHER No Pertinent Family Hx Physical Exam Vital Signs Capillary Refill : Less Than 3 Seconds Height, Weight, BMI Height: 5'11.00" Weight: 126lbs. 0.0oz. 57.096750ty; 17.00 BMI Method:Stated General Appearance: WD/WN, Moderate Distress (Actively vomiting), Thin HEENT: PERRL/EOMI, Normal ENT Inspection Neck: Normal Inspection Respiratory: Lungs Clear, Normal Breath Sounds, No Accessory Muscle Use Cardiovascular: No Edema, No Murmur, Tachycardia Gastrointestinal: Non Tender, Soft; No Distended Extremity: Normal Inspection, No Pedal Edema Neurologic/Psychiatric: Alert, Oriented x3, No Motor/Sensory Deficits Skin: Warm/Dry, Pallor Progress/Results/Core Measures Suspected Sepsis SIRS Temperature: Pulse: 101 Respiratory Rate: 12 Blood Pressure 172 /95 Mean: 120 Results/Orders Lab Results Laboratory Tests Test 06/06/23 00:55 06/06/23 00:57 06/06/23 02:09 06/06/23 03:04 Range/Units White Blood Count 11.1 H 4.3-11.0 10^3/uL Red Blood Count 4.70 4.30-5.52 10^6/uL Hemoglobin 12.2 L 13.3-17.7 g/dL Hematocrit 37 L 40-54 % Mean Corpuscular Volume 78 L 80-99 fL Mean Corpuscular Hemoglobin 26 25-34 pg Mean Corpuscular Hemoglobin Concent 33 32-36 g/dL Red Cell Distribution Width 14.6 H 10.0-14.5 % Platelet Count 297 130-400 10^3/uL Mean Platelet Volume 9.4 9.0-12.2 fL Immature Granulocyte % (Auto) 0 % Neutrophils (%) (Auto) 85 H 42-75 % Lymphocytes (%) (Auto) 11 L 12-44 % Monocytes (%) (Auto) 4 0-12 % Eosinophils (%) (Auto) 0 0-10 % Basophils (%) (Auto) 0 0-10 % Neutrophils # (Auto) 9.5 H 1.8-7.8 10^3/uL Lymphocytes # (Auto) 1.2 1.0-4.0 10^3/uL Monocytes # (Auto) 0.4 0.0-1.0 10^3/uL Eosinophils # (Auto) 0.0 0.0-0.3 10^3/uL Basophils # (Auto) 0.0 0.0-0.1 10^3/uL Immature Granulocyte # (Auto) 0.0 0.0-0.1 10^3/uL Sodium Level 139 135-145 MMOL/L Potassium Level 3.2 L 3.6-5.0 MMOL/L Chloride Level 104 98-107 MMOL/L Carbon Dioxide Level 18 L 21-32 MMOL/L Anion Gap 17 H 5-14 MMOL/L Blood Urea Nitrogen 13 7-18 MG/DL Creatinine 1.14 0.60-1.30 MG/DL Estimat Glomerular Filtration Rate 87 BUN/Creatinine Ratio 11 Glucose Level 276 H 70-105 MG/DL Calcium Level 9.4 8.5-10.1 MG/DL Corrected Calcium 9.2 8.5-10.1 MG/DL Magnesium Level 2.0 1.6-2.4 MG/DL Total Bilirubin 0.6 0.1-1.0 MG/DL Aspartate Amino Transf (AST/SGOT) 22 5-34 U/L Alanine Aminotransferase (ALT/SGPT) 14 0-55 U/L Alkaline Phosphatase 90 40-136 U/L Total Protein 7.5 6.4-8.2 GM/DL Albumin 4.3 3.2-4.5 GM/DL Serum Alcohol < 10 <10 MG/DL Glucometer 264 H 418 *H 70-110 MG/DL Urine Color YELLOW Urine Clarity CLEAR Urine pH 7.0 5-9 Urine Specific [place] 1.020 1.016-1.022 Urine Protein 3+ H NEGATIVE Urine Glucose (UA) 3+ H NEGATIVE Urine Ketones 3+ H NEGATIVE Urine Nitrite NEGATIVE NEGATIVE Urine Bilirubin NEGATIVE NEGATIVE Urine Urobilinogen .2 < = 1.0 MG/DL Urine Leukocyte Esterase NEGATIVE NEGATIVE Urine RBC (Auto) 1+ H NEGATIVE Urine RBC 2-5 H /HPF Urine WBC NONE /HPF Urine Crystals NONE /LPF Urine Bacteria NEGATIVE /HPF Urine Casts PRESENT /LPF Urine Hyaline Casts RARE /LPF Urine Mucus NEGATIVE /LPF Urine Culture Indicated NO Urine Opiates Screen NEGATIVE NEGATIVE Urine Oxycodone Screen NEGATIVE NEGATIVE Urine Methadone Screen NEGATIVE NEGATIVE Urine Propoxyphene Screen NEGATIVE NEGATIVE Urine Barbiturates Screen NEGATIVE NEGATIVE Ur Tricyclic Antidepressants Screen NEGATIVE NEGATIVE Urine Phencyclidine Screen NEGATIVE NEGATIVE Urine Amphetamines Screen NEGATIVE NEGATIVE Urine Methamphetamines Screen NEGATIVE NEGATIVE Urine Benzodiazepines Screen NEGATIVE NEGATIVE Urine Cocaine Screen NEGATIVE NEGATIVE Urine Cannabinoids Screen POSITIVE H NEGATIVE Test 06/06/23 04:30 06/06/23 04:42 06/06/23 04:45 06/06/23 05:28 Range/Units Glucometer 341 H 304 H 70-110 MG/DL Sodium Level 139 135-145 MMOL/L Potassium Level 3.9 3.6-5.0 MMOL/L Chloride Level 107 98-107 MMOL/L Carbon Dioxide Level 14 L 21-32 MMOL/L Anion Gap 18 H 5-14 MMOL/L Blood Urea Nitrogen 13 7-18 MG/DL Creatinine 1.12 0.60-1.30 MG/DL Estimat Glomerular Filtration Rate 89 BUN/Creatinine Ratio 12 Glucose Level 358 H 70-105 MG/DL Calcium Level 9.0 8.5-10.1 MG/DL Gastric Fluid Occult Blood POSITIVE H NEGATIVE Test 06/06/23 05:55 Range/Units Glucometer 257 H 70-110 MG/DL My Orders Orders - ANATOLY SHAFER MD Ed Iv/Invasive Line Start (06/06/23 00:45) Monitor-Rhythm Ecg Trace Only (06/06/23 00:45) Ed Iv/Invasive Line Start (06/06/23 00:45) Ns Iv 1000 Ml (Sodium Chloride 0.9%) (06/06/23 00:45) Cbc With Automated Diff (06/06/23 00:45) Comprehensive Metabolic Panel (06/06/23 00:45) Magnesium (06/06/23 00:45) Ua Culture If Indicated (06/06/23 00:45) Accucheck Stat ONCE (06/06/23 00:45) Ondansetron Injection (Zofran Injectio (06/06/23 01:15) Promethazine Injection (Phenergan Injec (06/06/23 01:45) Potassium Cl 10meq/50ml Ivpb (Kcl 10 Meq (06/06/23 01:45) Alcohol (06/06/23 02:13) Drug Screen Stat (Urine) (06/06/23 02:13) Ns Iv 1000 Ml (Sodium Chloride 0.9%) (06/06/23 02:45) Insulin (Regular) Per Unit (Insulin (Reg (06/06/23 03:45) Accucheck Stat ONCE (06/06/23 03:31) Accucheck Stat ONCE (06/06/23 03:31) Accucheck Stat ONCE (06/06/23 03:31) Ekg Tracing (06/06/23 04:13) Droperidol Injection (Ed Only) (Droperid (06/06/23 04:15) Basic Metabolic Panel (06/06/23 04:30) Occult Blood,Gastric Fluid (06/06/23 04:42) Enalaprilat Injection (Enalaprilat Injec (06/06/23 05:30) Insulin (Regular) Per Unit (Insulin (Reg (06/06/23 05:30) Pantoprazole Injection (Protonix Injecti (06/06/23 05:30) Scopolamine Patch (Transderm-Scop Patch) (06/06/23 05:45) Ed Admission (Communication) (06/06/23 06:00) Medications Given in ED Vital Signs/I&O Capillary Refill : Less Than 3 Seconds Blood Pressure Mean: 120 Point of Care Testing Finger Stick Blood Glucose: 264 Blood Glucose Action Taken: DR. SHAFER NOTIFIED Progress Note #1: Time: 05:41 Progress Note Triage report was reviewed at 0045 and labs were ordered along with IV fluids. Nursing staff kept me abreast of his status and requested antiemetics. Zofran and Phenergan were ordered. Patient was interviewed and examined by me at 0140. Labs were reviewed and interpreted by me. CBC demonstrated slight anemia with hemoglobin of 12.7. WBC count was at the upper limits at 11.1. CMP was remarkable for hypokalemia with potassium of 3.2, CO2 of 18, and blood sugar of 276. Patient was hydrated with a liter of normal saline. Hypokalemia was treated with IV potassium replacement with 10 mEq. Blood sugar was rising. Insulin 5 units IV was ordered along with an additional 1 L normal saline bolus. Patient continued to have nausea and vomiting. His emesis appeared dark brown and was suspicious for blood. Gastric occult testing was performed and was positive. He had refractory nausea and vomiting. I was suspicious that cannabis use may be contributing to his nausea and vomiting and therefore consider droperidol. After review of EKG, droperidol 2.5 mg IV was administered. This aborted the vomiting but patient still complained of nausea. A scopolamine patch was applied. Repeat BMP at 0442 demonstrated a drop in CO2 of 14. I was hopeful that with hydration and some insulin therapy, patient would move away from DKA. However, it appears he has now moved into DKA and will require admission. An additional dose of insulin 5 units IV was ordered. Dr. José, hospitalist on-call, was contacted for admission. Protonix 80 mg is being administered due to the hematemesis. Blood pressure has been creeping up and he has experienced blood pressures as high as the 180s systolic. He normally takes lisinopril 40 mg in the mornings. He may have vomited his last dose. Vasotec 1.25 mg is being administered in the ER for initial treatment of his hypertensive exacerbation. Patient will be admitted to the ICU for management of DKA. Dr. José requested consultation with Dr. Tse, general surgeon, for the hematemesis. Patient was reassessed by me personally several times during his ER stay. Progress Note #2: Time: 06:18 Progress Note Report was given to eICU and to Dr. Tse as surgeon information assurance engineer. ECG Initial ECG Impression Date: Jun 06, 2023 Initial ECG Impression Time: 04:27 Initial ECG Rate: 116 Initial ECG Rhythm: S.Tach Initial ECG Intervals: Normal Comment Sinus tachycardia with no ST elevation or depression. No abnormal intervals or axis deviation. Departure Communication (Admissions) Time/Spoke to Admitting Phy: 05:32 Dr. José Impression Primary Impression: DKA (diabetic ketoacidosis) Qualified Codes: E10.10 - Type 1 diabetes mellitus with ketoacidosis without coma Additional Impressions: Intractable nausea and vomiting Hematemesis Qualified Codes: K92.0 - Hematemesis Hypokalemia Cannabis abuse Hypertension Qualified Codes: I10 - Essential (primary) hypertension Disposition: 09 ADMITTED INPATIENT Condition: Stable Admissions Decision to Admit Reason: Admit from ER (General) Decision to Admit/Date: Jun 06, 2023 Time/Decision to Admit Time: 05:32 Departure-Patient Inst. Referrals: [facility] (PCP/Family) Primary Care Physician Scripts Amlodipine Besylate (Amlodipine Besylate) 5 Mg Tablet 5 MG PO DAILY, #30 TAB Prov: NORAH JOSÉ DO 06/09/23 Copy Copies To 1: [facility]/ANATOLY TURK MD Jun 06, 2023 02:45
[2023-06-06] MEDS ORDERED: inSUlin (REGULAR) HUMAN 1 UNIT/0.01 ML (CHARGE PER UNIT) IV ONE ×2 (03:45→05:30)
[2023-06-06] MEDS ORDERED: DroPERidol INJECTION 5 MG/2 ML (ED ONLY!) IV ONE (04:15)
[2023-06-06 05:01] LABS: POTASSIUM 3.9 MMOL/L (3.6-5.0)
[2023-06-06 05:06] LABS: OCCULT BLOOD,GASTRIC FLUID POSITIVE (NEGATIVE)
[2023-06-06 05:07] LABS: CREATININE SERUM 1.12 MG/DL (0.60-1.30)
[2023-06-06] MEDS ORDERED: PANTOPRAZOLE INJECTION 40 MG VIAL IV ONE (05:30)
[2023-06-06] MEDS ORDERED: ENALAPRILAT INJ 2.5 MG/2 ML VIAL IV ONE (05:30)
[2023-06-06] MEDS ORDERED: SCOPOLAMINE 1.5 MG PATCH TD ONE ×2 (05:45→06:30)
[2023-06-06] MEDS ORDERED: NS IV 1000 ML 1,000 ML ONE (06:11)
[2023-06-06] MEDS ORDERED: diphenhydrAMINE INJ 50 MG/ML VIAL IVP PRN (06:30)
[2023-06-06] MEDS ORDERED: BISACODYL 10 MG SUPPOSITORY PR PRN (06:30)
[2023-06-06] MEDS ORDERED: oxyCODONE IMMEDIATE RELEASE 5 MG TABLET PO PRN (06:30)
[2023-06-06] MEDS ORDERED: HYDROmorphone INJECTION 2 MG/ML VIAL IV PRN (06:30)
[2023-06-06] MEDS ORDERED: ONDANSETRON 4 MG ORAL DISSOLVE TABLET PO PRN (06:30)
[2023-06-06] MEDS ORDERED: ACETAMINOPHEN 325 MG TABLET PO PRN (06:30)
[2023-06-06] MEDS ORDERED: hydrALAZINE INJECTION 20 MG/ML VIAL IV PRN (06:30)
[2023-06-06] MEDS ORDERED: NS IV 500 ML 500 ML IV PRN (06:30)
[2023-06-06] MEDS ORDERED: MELATONIN 3 MG TABLET PO PRN (06:30)
[2023-06-06] MEDS ORDERED: diphenhydrAMINE 25 MG TABLET PO PRN (06:30)
[2023-06-06] MEDS ORDERED: MILK OF MAGNESIA 400 MG/5 ML 30 ML UDC PO PRN (06:30)
[2023-06-06] MEDS ORDERED: ANTACID SUSPENSION 30 ML UDC PO PRN (06:30)
[2023-06-06] MEDS ORDERED: LACTULOSE SYRUP 10GM/15ML 30ML UDC PO PRN (06:30)
[2023-06-06] MEDS ORDERED: CALCIUM CARBONATE 500 MG CHEW TABLET PO PRN (06:30)
[2023-06-06] MEDS ORDERED: LORazepam 0.5 MG TABLET PO PRN (06:30)
--- NOTE | 2023-06-06 07:06 | History & Physical-Hospitalist ---
History of Present Illness HPI/Chief Complaint Chief complaint: DKA with hematemesis HPI: This is a 32-year-old male known to me from prior admits for DKA who presented with nausea and vomiting and found to have DKA and he reported hematemesis concerning for GI bleeding so he was admitted to the ICU placed on insulin drip and proton pump inhibitor IV and Dr. Tse has been consulted. Source: patient Exam Limitations: no limitations Date Seen 06/06/23 Time Seen by a Provider: 10:00 Attending Physician [place] PCP Admitting Physician: Lroe Knight DO Attending Physician: Lore Knight DO Referring Physician Date of Admission Jun 06, 2023 at 06:10 Home Medications & Allergies Home Medications Reviewed patient Home Medication Reconciliation performed by pharmacy medication reconciliations health physics technician and/or nursing. Patients Allergies have been reviewed. Allergies Allergies Coded Allergies Penicillins (Verified Allergy, Unknown, 05/23/06) Past Nwwwbyw-Ohamyp-Okenhl Hx Patient Social History Marrital Status: single Employed/Student: unemployed Tobacco Use?: No Smoking Status: Former Smoker Use of E-Cig and/or Vaping dev: Yes E-Cig or Vaping type used: Marijuana (Delta product) Substance use?: Yes Substance type: Marijuana Alcohol Use?: No Pt feels they are or have been: No Immunizations Up To Date Date of Influenza Vaccine: Jun 21, 2022 First/Initial COVID19 Vaccinat: 01/05/21 Second COVID19 Vaccination Pierre: 02/04/21 Tetanus Booster (TDap): Unknown Hepatitis A: No Hepatitis B: No PED Vaccines UTD: No Date of Pneumonia Vaccine: Jul 16, 2016 Seasonal Allergies Seasonal Allergies: No Current Status Primary Language: Guatemalan Preferred Spoken Language: Guatemalan Past Medical History Pneumonia Currently Using CPAP: No Currently Using BIPAP: No Cardiomyopathy, Hypertension Sexually Transmitted Disease: No HIV/AIDS: No Gastroesophageal Reflux Diabetes, Insulin dep Loss of Vision: Denies Hearing Impairment: Denies Did You Recieve Any Treatments: No Blood Disorders: No Adverse Reaction/Blood Tranf: No PMHx: Type I Diabetes Anxiety Diabetic Retinopathy Thyrotoxicosis Pneumonia Cardiomyopathy Gastroparesis Family Medical History Cardiovascular disease 19 FATHER Hypertension 19 FATHER No Pertinent Family Hx Review of Systems Constitutional: see HPI, malaise, weakness Gastrointestinal: hematemesis, nausea, vomiting Physical Exam Physical Exam Vital Signs Vital Signs - First Documented 06/06/23 00:49 Pulse 101 Resp 12 B/P (MAP) 172/95 (120) Pulse Ox 100 O2 Delivery Room Air Capillary Refill : Less Than 3 Seconds Height, Weight, BMI Height: 5'11.00" Weight: 126lbs. 0.0oz. 57.054480iy; 17.00 BMI Method:Stated General Appearance: No Apparent Distress, Anxious, Chronically ill, Thin Eyes: Right Eye Normal Inspection, Right Eye PERRL HEENT: PERRL/EOMI, Normal ENT Inspection, Pharynx Normal, Moist Mucous Me mbranes Neck: Full Range of Motion, Normal Inspection, Non Tender Respiratory: Chest Non Tender, Lungs Clear, Normal Breath Sounds, No Accessory Muscle Use, No Respiratory Distress Cardiovascular: Regular Rate, Rhythm, No Edema, No Gallop, No JVD, No Murmur, Normal Peripheral Pulses Gastrointestinal: Normal Bowel Sounds, No Organomegaly, No Pulsatile Mass, Non Tender, Soft Back: Normal Inspection, No CVA Tenderness, No Vertebral Tenderness Extremity: Normal Capillary Refill, Normal Inspection, Normal Range of Motion, Non Tender, No Calf Tenderness, No Pedal Edema Neurologic/Psychiatric: Alert, Oriented x3, No Motor/Sensory Deficits, Normal Mood/Affect Skin: Normal Color, Warm/Dry Lymphatic: No Adenopathy Results Results/Procedures Labs Laboratory Tests 06/06/23 00:55 06/06/23 04:42 06/06/23 06:50 06/06/23 11:02 06/06/23 15:05 Patient resulted labs reviewed. Assessment/Plan Admission Diagnosis Assessment: DKA Hematemesis Hypertension Cardiomyopathy Plan: Dr. Tse consult Proton pump inhibitor IV Insulin drip ICU Admission Status: Inpatient Order (span 2 midnights) Reason for Inpatient Admission: dka Diagnosis/Problems Diagnosis/Problems (1) DKA (diabetic ketoacidoses) Status: Resolved Resolution Date/Time: 09/20/22 @ 21:48 (2) Hematemesis Clinical Quality Measures DVT/VTE Risk/Contraindication: Contraindications-Pharm: Other *list below* Other: LORE Carlos DO Jun 06, 2023 07:06
[2023-06-06] MEDS: D5 1/2 NS 1,000 ML IV 1,000 ML IV SCH ×3 (07:09→20:57)
[2023-06-06] MEDS: POTASSIUM CL 10MEQ/50ML IVPB 50 ML IV SCH ×10 (07:09→23:59)
[2023-06-06 07:10] LABS: CALCIUM 8.7 MG/DL (8.5-10.1)
[2023-06-06 07:14] LABS: CREATININE SERUM 1.06 MG/DL (0.60-1.30)
[2023-06-06] MEDS: METOCLOPRAMIDE INJ 10 MG/2 ML IVP SCH ×3 (07:14→19:37)
[2023-06-06] MEDS: 1/2 NS IV SOLUTION 1000 ML 1,000 ML IV SCH ×2 (09:16→20:11)
[2023-06-06] MEDS: DOCUSATE SODIUM 100 MG CAPSULE PO SCH ×2 (09:16→20:10)
[2023-06-06] MEDS: SENNOSIDES 8.6 MG (SENOKOT) TAB PO SCH ×2 (09:17→20:10)
[2023-06-06] MEDS ORDERED: INSU100V5 SQ (10:27)
--- NOTE | 2023-06-06 10:52 | Tele-ICU Consult ---
History of Present Illness History of Present Illness Date Seen by Provider: Jun 06, 2023 Time Seen by Provider: 10:51 Date of Admission History of Present Illness (Tele-ICU Physician , consultation as per request of PCP Service provided via interactive audio and video [employer] E-CARE system to a patient admitted to ICU bed in [facility]. Available chart/ vitals / labs / Images reviewed H&P is from ER notes Patient's information available about PMH, Shx, Fhx allergy reviewed inEMR. ROS as per chart and RN report Now in ICU, hemodynamically stable Video assessment done using teleICU camera, rest of exam as per RN Discussed with RN. Hospital course: (06/06) 32M Admitted for DKA, intractable vomiting/hematemesis. Positive occult blood stool. Chronic marajuana use. A/P DKA -Unclear precipitant, No suspicious for new infection *Insulin drip , hydration.follow lytes and AG Gastroparesis tx Lines : per , (Central Line Necessity Reviewed) Carrillo: OG: Nutrition: npo Analgesia: Anxiety/ delirium Plans in collaboration with bedside consultants and IM MDs. Discussed with RN to reach out if any questions or concerns A total of 10 minutes of critical care time was devoted to this patient today, required to treat and/or prevent further deterioration of critical care condition ( as above ) . I am remotely monitoring this patient from another state. I am unable to do the bedside exam, and history/physical and pertinent information is taken from other notes in the computer and bedside staff. . Allergies and Home Medications Allergies Coded Allergies: Penicillins (Verified Allergy, Unknown, 05/23/06) Home Medications Insulin Aspart 100 Unit/Ml Susp, UNIT SQ AC, (Reported) USES PER SLIDING SCALE Insulin Determir 100 Unit/Ml Soln, 5 UNITS SQ BID, (Reported) Lisinopril 40 Mg Tablet, 40 MG PO DAILY, (Reported) Metoclopramide HCl 10 Mg Tablet, 10 MG PO ACHS, (Reported) Pantoprazole Sodium 40 Mg Tablet.dr, 40 MG PO DAILY, (Reported) Past Medical/Social/Family Hx Patient Social History Tobacco Use?: No Use of E-Cig and/or Vaping dev: Yes E-Cig or Vaping type used: Marijuana (Delta product) Substance use?: Yes Substance type: Marijuana Alcohol Use?: No Pt stated abuse/neglect: No Immunizations Up To Date First/Initial COVID19 Vaccinat: 01/05/21 Second COVID19 Vaccination Pierre: 02/04/21 Tetanus Booster (TDap): Unknown Hepatitis A: No Hepatitis B: No TB Skin Test: None Date of Pneumonia Vaccine: Jul 16, 2016 Current Status Primary Language: Ethiopian Preferred Spoken Language: Ethiopian Past Medical History PMHx: Type I Diabetes Anxiety Diabetic Retinopathy Thyrotoxicosis Pneumonia Cardiomyopathy Gastroparesis Review of Systems Constitutional: other Focused Exam Possible Source: Other Height, Weight, BMI Height: 5'11.00" Weight: 126lbs. 0.0oz. 57.389014kt; 17.00 BMI Method:Stated Exam Exam Patient acknowledged, consented, and participated in this virtual visit which was conducted using real time audio/video Vital Signs Date Time Temp Pulse Resp B/P (MAP) Pulse Ox O2 Delivery O2 Flow Rate FiO2 06/06/23 10:00 115 124/72 (89) Room Air 06/06/23 09:00 131 162/102 (122) Room Air 06/06/23 08:30 154 193/120 (144) 98 Room Air 06/06/23 08:15 122 125/76 (92) Room Air 06/06/23 08:00 117 101/51 (68) Room Air 06/06/23 08:00 36.4 06/06/23 07:45 96 Room Air 06/06/23 07:45 117 92/48 (63) Room Air 06/06/23 07:30 125 96/50 (65) Room Air 06/06/23 07:15 152 145/66 (92) Room Air 06/06/23 07:08 142 06/06/23 07:00 137 179/98 (125) 95 Room Air 06/06/23 06:26 131 06/06/23 06:20 124 12 172/105 100 Room Air 06/06/23 00:49 101 12 172/95 (120) 100 Room Air I & O 06/06/23 06:59 Intake Total 2050 ml Balance 2050 ml Height & Weight Height: 5'11.00" Weight: 126lbs. 0.0oz. 57.692718ng; 17.00 BMI Method:Stated General Appearance: WD/WN, Moderate Distress (Actively vomiting), Thin, Other HEENT: PERRL/EOMI, Normal ENT Inspection Neck: Normal Inspection Respiratory: Lungs Clear, Normal Breath Sounds, No Accessory Muscle Use Cardiovascular: No Edema, No Murmur, Tachycardia Capillary Refill: Less Than 3 Seconds Extremity: Normal Inspection, No Pedal Edema Neurologic/Psychiatric: Alert, Oriented x3, No Motor/Sensory Deficits Skin: Warm/Dry, Pallor Results Lab Laboratory Tests 06/06/23 00:55 06/06/23 04:42 06/06/23 06:50 Assessment/Plan Assessment/Plan 1 MAGI FAGAN MD Jun 06, 2023 10:52
[2023-06-06 11:22] LABS: POTASSIUM 4.3 MMOL/L (3.6-5.0)
[2023-06-06 11:23] LABS: CALCIUM 7.7 MG/DL (8.5-10.1)
[2023-06-06 11:27] LABS: CREATININE SERUM 0.95 MG/DL (0.60-1.30)
--- NOTE | 2023-06-06 11:44 | Consultation - Surgery ---
GARIMA PEARSON 06/06/23 1144: History of Present Illness History of Present Illness Patient Consulted On(ginny/time) 06/06/23 11:38 Date Seen by Provider: Jun 06, 2023 Time Seen by Provider: 11:38 History of Present Illness Pt states that he arrived to the hospital last night around midnight with his mother due to nausea and vomiting. The nausea and vomiting started around 7pm, and he denies any blood in any of his vomiting episodes. He says he vomited from 7pm to the time he came to the hospital around 20 times and describes it as a brown color. He has generalized body aches and body weakness. He had a previous episode like this with nausea and vomiting that also caused him to come to the hospital in April. He is not sure what set off this episode. He was diagnosed with DM1 at age 11 and states that his diabetes is not the best controlled and that it could use improvement. He uses insulin injections and blood glc monitoring for his DM1. His last injection was yesterday around 5pm and used 5 or 6 units. His blood glc before this injection was 220 and he did not measure it after the injection due to his nausea and vomiting. Pt denies corticosteroid use in the past 6 months. Pt denies SGLT-2 inhibitors use in the past 6 months. Pt denies any alcohol consumption in the past 24 hours. Pt states he is a former marijuana smoker, in the urine screen canniboids came back positive. The pt's nurse said that his last vomit episode was 0900H today and there was about 150ml with no blood in it. Allergies and Home Medications Allergies Coded Allergies: Penicillins (Verified Allergy, Unknown, 05/23/06) Patient Home Medication List Insulin Aspart (Novolog) 100 Unit/Ml Susp, UNIT SQ AC, (Reported) Entered as Reported by: YUMIKO SNOW on 04/14/23 1036 Last Action: Reviewed Insulin Determir (Levemir) 100 Unit/Ml Soln, 5 UNITS SQ BID, (Reported) Entered as Reported by: YUMIKO SNOW on 06/06/23 1027 Last Action: Reviewed Lisinopril (Lisinopril) 40 Mg Tablet, 40 MG PO DAILY, (Reported) Entered as Reported by: YUMIKO SNOW on 04/14/23 1036 Last Action: Reviewed Metoclopramide HCl (Metoclopramide HCl) 10 Mg Tablet, 10 MG PO ACHS, (Reported) Entered as Reported by: DANNIE PERDOMO on 01/11/21951 Last Action: Reviewed Pantoprazole Sodium (Pantoprazole Sodium) 40 Mg Tablet.dr, 40 MG PO DAILY, (Reported) Entered as Reported by: DANNIE PERDOMO on 01/11/21951 Last Action: Reviewed Discontinued Medications Insulin Determir (Levemir) 100 Unit/Ml Soln, 5 UNITS SQ BID Discontinued Reason: Duplicate Order Prescribed by: DEANNE BLANCO on 04/18/23814 Last Action: Discontinued Past Updddwt-Cruklb-Pbuopb Hx Patient Social History Drug of Choice: Marijuana Smoking Status: Former Smoker Former Smoker, Quit: Sep 28, 2012 Type Used: Cigarettes (1 ppd for 1-2 years) 2nd Hand Smoke Exposure: No Recent Hopitalizations: No Alcohol Use?: No Substance type: Marijuana Immunizations Up To Date Tetanus Booster (TDap): Unknown PED Vaccines UTD: No Date of Pneumonia Vaccine: Jul 16, 2016 Date of Influenza Vaccine: Jun 21, 2022 Seasonal Allergies Seasonal Allergies: No Surgeries History of Surgeries: No Respiratory History of Respiratory Disorde: No Cardiovascular History of Cardiac Disorders: Yes (CARDIOMYOPATHY DX 2017) Cardiac Disorders: Cardiomyopathy, Hypertension Neurological History of Neurological Disord: No Reproductive System Hx Reproductive Disorders: No Sexually Transmitted Disease: No HIV/AIDS: No Genitourinary History of Genitourinary Disor: No Gastrointestinal History of Gastrointestinal Di: Yes (GASTROPARESIS) Gastrointestinal Disorders: Gastroesophageal Reflux Musculoskeletal History of Musculoskeletal Dis: No Endocrine History of Endocrine Disorders: Yes (DX AGE 11, [place] 2001; MULTIPLE ADMITS FOR DKA) Endocrine Disorders: Diabetes, Insulin dep HEENT Loss of Vision: Denies Hearing Impairment: Denies Cancer History of Cancer: No Psychosocial History of Psychiatric Problem: Yes (Frequent marijuana use) Integumentary History of Skin or Integumenta: Yes (WOUNDS TO LOWER LEGS-- REQUIRED WOUND CARE CLINIC TREATMENT) Blood Transfusions History of Blood Disorders: No Adverse Reaction to a Blood Tr: No Family Medical History Family Medial History: Cardiovascular disease 19 FATHER Hypertension 19 FATHER Review of Systems-General Constitutional: No chills, No dizziness, No fever; malaise, weakness; No weight gain, No weight loss EENTM: No hearing loss, No ear pain, No blurred vision, No double vision, No eye pain, No vision loss, No dental problems, No hoarseness, No mouth pain, No mouth swelling, No throat pain, No throat swelling Respiratory: No cough, No short of breath, No wheezing Cardiovascular: No chest pain, No edema, No palpitations Gastrointestinal: No abdominal pain, No constipation, No diarrhea, No dysphagia, No hematemesis, No heartburn, No jaundice, No nausea, No vomiting Genitourinary: No dysuria, No frequency, No hematuria Musculoskeletal: muscle weakness (generalized) Psychiatric/Neurological: Denies Headache, Denies Numbness Physical Exam-General Problems Physical Exam Vital Signs Vital Signs - First Documented 06/06/23 00:49 Pulse 101 Resp 12 B/P (MAP) 172/95 (120) Pulse Ox 100 O2 Delivery Room Air Capillary Refill : Less Than 3 Seconds General Appearance: no apparent distress Eyes: Bilateral Eye PERRL, Bilateral Eye EOMI HEENT: PERRL/EOMI; No scleral icterus (R), No scleral icterus (L), No photophobia Respiratory: chest non-tender, lungs clear, normal breath sounds, no respiratory distress, no accessory muscle use Cardiovascular: regular rate, rhythm, no murmur Peripheral Pulses: 2+ Dorsalis Pedis (R), 2+ Left Dors-Pedis (L), 2+ Radial Pulses (R), 2+ Radial Pulses (L) Gastrointestinal: normal bowel sounds, non tender, soft, no organomegaly, no pulsatile mass Neurologic/Psychiatric: oriented x 3; No facial droop; depressed affect Skin: normal color, warm/dry Data Review Labs Laboratory Tests 06/06/23 00:55: White Blood Count 11.1H, Red Blood Count 4.70, Hemoglobin 12.2L, Hematocrit 37L, Mean Corpuscular Volume 78L, Mean Corpuscular Hemoglobin 26, Mean Corpuscular Hemoglobin Concent 33, Red Cell Distribution Width 14.6H, Platelet Count 297, Mean Platelet Volume 9.4, Immature Granulocyte % (Auto) 0, Neutrophils (%) (Auto) 85H, Lymphocytes (%) (Auto) 11L, Monocytes (%) (Auto) 4, Eosinophils (%) (Auto) 0, Basophils (%) (Auto) 0, Neutrophils # (Auto) 9.5H, Lymphocytes # (Auto) 1.2, Monocytes # (Auto) 0.4, Eosinophils # (Auto) 0.0, Basophils # (Auto) 0.0, Immature Granulocyte # (Auto) 0.0, Sodium Level 139, Potassium Level 3.2L, Chloride Level 104, Carbon Dioxide Level 18L, Anion Gap 17H, Blood Urea Nitrogen 13, Creatinine 1.14, Estimat Glomerular Filtration Rate 87, BUN/Creatinine Ratio 11, Glucose Level 276H, Calcium Level 9.4, Corrected Calcium 9.2, Magnesium Level 2.0, Total Bilirubin 0.6, Aspartate Amino Transf (AST/SGOT) 22, Alanine Aminotransferase (ALT/SGPT) 14, Alkaline Phosphatase 90, Total Protein 7.5, Albumin 4.3, Serum Alcohol < 10 06/06/23 00:57: Glucometer 264H 06/06/23 02:09: Urine Color YELLOW, Urine Clarity CLEAR, Urine pH 7.0, Urine Specific [place] 1.020, Urine Protein 3+H, Urine Glucose (UA) 3+H, Urine Ketones 3+H, Urine Nitrite NEGATIVE, Urine Bilirubin NEGATIVE, Urine Urobilinogen .2, Urine Leukocyte Esterase NEGATIVE, Urine RBC (Auto) 1+H, Urine RBC 2-5H, Urine WBC NONE, Urine Crystals NONE, Urine Bacteria NEGATIVE, Urine Casts PRESENT, Urine Hyaline Casts RARE, Urine Mucus NEGATIVE, Urine Culture Indicated NO, Urine Opiates Screen NEGATIVE, Urine Oxycodone Screen NEGATIVE, Urine Methadone Screen NEGATIVE, Urine Propoxyphene Screen NEGATIVE, Urine Barbiturates Screen NEGATIVE, Ur Tricyclic Antidepressants Screen NEGATIVE, Urine Phencyclidine Screen NEGATIVE, Urine Amphetamines Screen NEGATIVE, Urine Methamphetamines Screen NEGATIVE, Urine Benzodiazepines Screen NEGATIVE, Urine Cocaine Screen NEGATIVE, Urine Cannabinoids Screen POSITIVEH 06/06/23 03:04: Glucometer 418*H 06/06/23 04:30: Glucometer 341H 06/06/23 04:42: Sodium Level 139, Potassium Level 3.9, Chloride Level 107, Carbon Dioxide Level 14L, Anion Gap 18H, Blood Urea Nitrogen 13, Creatinine 1.12, Estimat Glomerular Filtration Rate 89, BUN/Creatinine Ratio 12, Glucose Level 358H, Calcium Level 9.0 06/06/23 04:45: Gastric Fluid Occult Blood POSITIVEH 06/06/23 05:28: Glucometer 304H 06/06/23 05:55: Glucometer 257H 06/06/23 06:35: Glucometer 219H 06/06/23 06:50: Sodium Level 140, Potassium Level 4.0, Chloride Level 108H, Carbon Dioxide Level 17L, Anion Gap 15H, Blood Urea Nitrogen 12, Creatinine 1.06, Estimat Glomerular Filtration Rate 95, BUN/Creatinine Ratio 11, Glucose Level 239H, Calcium Level 8.7, Beta-Hydroxybutyrate (Chem panel) 2.99H 06/06/23 08:52: Glucometer 289H 06/06/23 09:49: Glucometer 196H 06/06/23 10:47: Glucometer 206H 06/06/23 10:49: Glucometer 200H 06/06/23 11:02: Sodium Level 137, Potassium Level 4.3, Chloride Level 111H, Carbon Dioxide Level 19L, Anion Gap 7, Blood Urea Nitrogen 11, Creatinine 0.95, Estimat Glomerular Filtration Rate 108, BUN/Creatinine Ratio 12, Glucose Level 199H, Calcium Level 7.7L Assessment/Plan Assessment/Plan Assessment/Plan A/P: Nausea/Vomiting with a positive Gastric Occult Blood DKA Pt is to keep a tight blood glc control level through IV fluids. Pt is to continue the anti-emetic medication and the PPI. We discussed the possible EGD in the future to research further into the blood in the vomit. Clinical Quality Measures DVT/VTE Risk/Contraindication: Contraindications-Pharm: Other *list below* Other: DAVID Joe DO 06/06/23 1354: History of Present Illness History of Present Illness Time Seen by Provider: 12:47 History of Present Illness Surgery asked to consult regarding N/V and hemoccult + emesis. HPI per ED: This 32-year-old man with type 1 diabetes presents to the emergency room with nausea and vomiting. He is not experiencing significant pain. He has had frequent admissions at this facility for DKA. 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 He now states he is using delta products and a vape rather than marijuana. He is afebrile. He reports last taking his short acting insulin around 0. He last took his long-acting insulin on Monday night, June 04. Vomiting started early in the day on Monday. When I talked to pt he states he has never vomited up anything black or bloody. He denies any symptoms of GERD and does not take an acid lenny. He denies any recent use of NSAIDS. Allergies and Home Medications Allergies Coded Allergies: Penicillins (Verified Allergy, Unknown, 05/23/06) Patient Home Medication List Home Medication List Reviewed: Yes Insulin Aspart (Novolog) 100 Unit/Ml Susp, UNIT SQ AC, (Reported) Entered as Reported by: YUMIKO SNOW on 04/14/23 1036 Last Action: Reviewed Insulin Determir (Levemir) 100 Unit/Ml Soln, 5 UNITS SQ BID, (Reported) Entered as Reported by: YUMIKO SNOW on 06/06/23 1027 Last Action: Reviewed Lisinopril (Lisinopril) 40 Mg Tablet, 40 MG PO DAILY, (Reported) Entered as Reported by: YUMIKO SNOW on 04/14/23 103 Last Action: Reviewed Metoclopramide HCl (Metoclopramide HCl) 10 Mg Tablet, 10 MG PO ACHS, (Reported) Entered as Reported by: DANNIE PERDOMO on 01/11/21951 Last Action: Reviewed Pantoprazole Sodium (Pantoprazole Sodium) 40 Mg Tablet.dr, 40 MG PO DAILY, (Reported) Entered as Reported by: DANNIE PERDOMO on 01/11/21951 Last Action: Reviewed Discontinued Medications Insulin Determir (Levemir) 100 Unit/Ml Soln, 5 UNITS SQ BID Discontinued Reason: Duplicate Order Prescribed by: DEANNE BLANCO on 04/18/23 0815 Last Action: Discontinued Past [id number]-Xvmrph-Bqkqyj Hx Patient Social History Smoking Status: Former Smoker Type Used: Cigarettes (1 ppd for 1-2 years) Alcohol Use?: No Surgeries History of Surgeries: No Respiratory History of Respiratory Disorde: No Cardiovascular History of Cardiac Disorders: Yes Cardiac Disorders: Cardiomyopathy, Hypertension Neurological History of Neurological Disord: No Genitourinary History of Genitourinary Disor: No Gastrointestinal History of Gastrointestinal Di: No Musculoskeletal History of Musculoskeletal Dis: No Endocrine History of Endocrine Disorders: Yes Endocrine Disorders: Diabetes, Insulin dep HEENT History of HEENT Disorders: No Loss of Vision: Denies Hearing Impairment: Denies Cancer History of Cancer: No Psychosocial History of Psychiatric Problem: Yes Behavioral Health Disorders: Anxiety Family Medical History Significant Family History: Heart Disease, Hypertension Family Medial History: Cardiovascular disease 19 FATHER Hypertension 19 FATHER Review of Systems-General Constitutional: No chills, No dizziness, No fever; malaise, weakness EENTM: No blurred vision, No vision loss, No dental problems, No throat swelling Respiratory: No cough, No dyspnea on exertion, No short of breath Cardiovascular: No chest pain, No edema, No palpitations Gastrointestinal: No abdominal pain, No diarrhea, No dysphagia, No jaundice; nausea, vomiting Genitourinary: No dysuria, No frequency, No hematuria Musculoskeletal: No joint pain; muscle weakness (generalized) Skin: No change in color, No change in hair/nails Psychiatric/Neurological: Denies Anxiety, Denies Depressed; Emotional Problems (?secondary to cannabis use); Denies Headache, Denies Numbness Physical Exam-General Problems Physical Exam General Appearance: WD/WN, mild distress Eyes: Bilateral Eye PERRL, Bilateral Eye EOMI HEENT: pharynx normal; No scleral icterus (R), No scleral icterus (L) Neck: non-tender, supple Respiratory: chest non-tender, lungs clear, normal breath sounds, no respiratory distress, no accessory muscle use Cardiovascular: no murmur, tachycardia Gastrointestinal: normal bowel sounds, non tender, soft, no organomegaly, no pulsatile mass Back: no CVA tenderness, no vertebral tenderness Neurologic/Psychiatric: oriented x 3; No facial droop; depressed affect Skin: normal color, warm/dry Lymphatic: no adenopathy (neck, axilla ) Assessment/Plan Assessment/Plan Assessment/Plan Nausea/Vomiting Emesis with a positive Gastric Occult Blood DKA IV fluids, encourage PO, keep a tight blood glc control level through IV fluids. Pt is to continue the anti-emetic medication as needed and continue the PPI. We discussed the possible EGD in the future to assess +hemoccult; most likely as outpt but could still need it while he is an inpt. Will monitor. Supervisory-Addendum Brief Verification & Attestation Participated in pt care: history, MDM, physical Personally performed: exam, history, MDM, supervision of care Care discussed with: Medical Student Procedures: n/a Verification and Attestation of Medical Student E/M Service A medical student performed and documented this service. I then reviewed and verified all information documented by the medical student and made modifications to such information, when appropriate. I personally performed a physical exam, medical decision making and then discussed any differences between the notes and made revisions as necessary to create one note. David Jensen , 06/06/23 , 13:58 GARIMA PEARSON Jun 06, 2023 11:44 DAVID JENSEN DO Jun 06, 2023 13:54
[2023-06-06 15:21] LABS: POTASSIUM 3.8 MMOL/L (3.6-5.0)
[2023-06-06 15:22] LABS: CALCIUM 7.5 MG/DL (8.5-10.1)
[2023-06-06 15:27] LABS: CREATININE SERUM 0.85 MG/DL (0.60-1.30)
[2023-06-06 19:24] LABS: POTASSIUM 3.7 MMOL/L (3.6-5.0)
[2023-06-06 19:26] LABS: CALCIUM 7.3 MG/DL (8.5-10.1)
[2023-06-06 19:30] LABS: CREATININE SERUM 0.78 MG/DL (0.60-1.30)
[2023-06-06] MEDS: PANTOPRAZOLE INJECTION 40 MG VIAL IV SCH (20:10)
[2023-06-06 22:49] LABS: CALCIUM 7.1 MG/DL (8.5-10.1); CREATININE SERUM 0.73 MG/DL (0.60-1.30); POTASSIUM 3.5 MMOL/L (3.6-5.0)
[2023-06-07] MEDS: D5 1/2 NS 1,000 ML IV 1,000 ML IV SCH ×3 (00:59→09:18)
[2023-06-07] MEDS: 1/2 NS IV SOLUTION 1000 ML 1,000 ML IV SCH ×4 (01:05→07:31)
[2023-06-07] MEDS: POTASSIUM CL 10MEQ/50ML IVPB 50 ML IV SCH ×4 (02:10→08:35)
[2023-06-07] MEDS: METOCLOPRAMIDE INJ 10 MG/2 ML IVP SCH ×5 (02:11→23:59)
[2023-06-07 03:30] LABS: ALBUMIN 3.2 GM/DL (3.2-4.5); POTASSIUM 3.7 MMOL/L (3.6-5.0)
[2023-06-07 03:32] LABS: CALCIUM 7.7 MG/DL (8.5-10.1)
[2023-06-07 03:33] LABS: TOTAL PROTEIN 5.4 GM/DL (6.4-8.2)
[2023-06-07 03:35] LABS: BILIRUBIN,TOTAL 0.5 MG/DL (0.1-1.0)
[2023-06-07 03:36] LABS: PHOSPHORUS 1.4 MG/DL (2.3-4.7)
[2023-06-07 03:37] LABS: CREATININE SERUM 0.72 MG/DL (0.60-1.30)
[2023-06-07 03:39] LABS: MAGNESIUM 1.6 MG/DL (1.6-2.4)
[2023-06-07] MEDS: MAGNESIUM 1 GM/100 ML IVPB 100 ML IV SCH ×4 (04:26→06:18)
[2023-06-07] MEDS: ONDANSETRON INJECTION 4 MG/2 ML (SDV) IV PRN ×2 (05:11→14:41)
[2023-06-07] MEDS ORDERED: POTASSIUM CHLORIDE 20 MEQ TABLET PO SCH (06:00)
[2023-06-07] MEDS ORDERED: POTASSIUM CL 10MEQ/50ML IVPB 50 ML IV SCH (06:00)
[2023-06-07] MEDS ORDERED: MAGNESIUM 1 GM/100 ML IVPB 100 ML IV SCH (06:00)
--- NOTE | 2023-06-07 07:04 | Progress Note - Surgery ---
GARIMA PEARSON 06/07/23 0704: Subjective Time Seen by a Provider: 06:59 Subjective/Events-last exam Pt states that he is feeling very nauseous this morning. He states that his last episode of vomiting was around 5 or 6am. He says there was "quite a bit" but denies seeing any blood in it. He says he did not vomit last night. He said his last meal was last night and it consisted of chicken broth and jello. He says he felt "okay" after the meal and denies having any abdominal pain, dysphagia, heartburn, or throat pain. He has not had any bowel movements since he has been in the hospital. He is not lightheaded or dizzy. Review of Systems General: No Chills, No Night Sweats; Fatigue; No Malaise HEENT: No Head Aches, No Visual Changes, No Eye Pain, No Ear Pain, No Dysphasia Pulmonary: No Cough Cardiovascular: No: Chest Pain, Palpitations, Lt Headedness Gastrointestinal: Nausea, Vomiting; No: Abdominal Pain Neurological: No: Weakness, Numbness, Incoordination, Change in speech, Confusion Objective Exam Vital Signs Date Time Temp Pulse Resp B/P (MAP) Pulse Ox O2 Delivery O2 Flow Rate FiO2 06/07/23 06:00 89 169/92 (117) Room Air 06/07/23 05:00 101 185/106 (132) Room Air 06/07/23 04:00 36.3 06/07/23 04:00 111 177/95 (122) 99 Room Air 06/07/23 03:00 89 143/102 (116) 98 Room Air 06/07/23 02:00 100 147/98 (114) Room Air 06/07/23 01:00 82 06/07/23 01:00 82 142/108 (119) 100 Room Air 06/07/23 00:00 80 133/106 (115) 100 Room Air 06/07/23 00:00 36.3 06/06/23 23:59 98 Room Air 06/06/23 23:08 93 125/89 (101) 94 Room Air 06/06/23 22:00 90 111/79 (93) Room Air 06/06/23 21:00 91 122/82 (96) 99 Room Air 06/06/23 20:00 89 130/87 (102) Room Air 06/06/23 20:00 99 Room Air 06/06/23 20:00 36.5 06/06/23 19:00 87 114/76 (88) Room Air 06/06/23 19:00 87 06/06/23 18:00 89 121/80 (94) Room Air 06/06/23 17:00 93 127/82 (97) Room Air 06/06/23 16:15 98 Room Air 06/06/23 16:00 110 137/111 (120) Room Air 06/06/23 15:00 96 123/83 (96) Room Air 06/06/23 14:00 96 120/79 (93) Room Air 06/06/23 13:00 103 123/80 (94) Room Air 06/06/23 12:55 105 06/06/23 12:02 98 Room Air 06/06/23 12:00 36.8 06/06/23 12:00 122 139/95 (110) Room Air 06/06/23 11:00 128 136/88 (104) Room Air 06/06/23 10:00 115 124/72 (89) Room Air 06/06/23 09:00 131 162/102 (122) Room Air 06/06/23 08:30 154 193/120 (144) 98 Room Air 06/06/23 08:15 122 125/76 (92) Room Air 06/06/23 08:00 117 101/51 (68) Room Air 06/06/23 08:00 36.4 06/06/23 07:45 96 Room Air 06/06/23 07:45 117 92/48 (63) Room Air 06/06/23 07:30 125 96/50 (65) Room Air 06/06/23 07:15 152 145/66 (92) Room Air 06/06/23 07:08 142 06/06/23 07:00 137 179/98 (125) 95 Room Air I & O 06/07/23 07:00 Intake Total 4970 ml Output Total 2650 ml Balance 2320 ml Capillary Refill : Less Than 3 Seconds General Appearance: No Apparent Distress HEENT: PERRL/EOMI; No Photophobia, No Scleral Icterus (L), No Scleral Icterus (R) Respiratory: Chest Non Tender, Lungs Clear, Normal Breath Sounds, No Accessory Muscle Use, No Respiratory Distress Cardiovascular: No Murmur, Tachycardia (100BPM) Peripheral Pulses: 2+ Dorsalis Pedis (R), 2+ Left Dors-Pedis (L), 2+ Radial Pulses (R), 2+ Radial Pulses (L) Gastrointestinal: normal bowel sounds, non tender, soft, no organomegaly, no pulsatile mass Extremity: No Calf Tenderness Neurologic/Psychiatric: Alert, Oriented x3, Normal Mood/Affect Skin: Normal Color, Warm/Dry Results Lab Laboratory Tests 06/06/23 08:52: Glucometer 289H 06/06/23 09:49: Glucometer 196H 06/06/23 10:47: Glucometer 206H 06/06/23 10:49: Glucometer 200H 06/06/23 11:02: Sodium Level 137, Potassium Level 4.3, Chloride Level 111H, Carbon Dioxide Level 19L, Anion Gap 7, Blood Urea Nitrogen 11, Creatinine 0.95, Estimat Glomerular Filtration Rate 108, BUN/Creatinine Ratio 12, Glucose Level 199H, Calcium Level 7.7L 06/06/23 11:55: Glucometer 174H 06/06/23 12:49: Glucometer 179H 06/06/23 13:51: Glucometer 163H 06/06/23 14:55: Glucometer 146H 06/06/23 15:05: Sodium Level 136, Potassium Level 3.8, Chloride Level 110H, Carbon Dioxide Level 22, Anion Gap 4L, Blood Urea Nitrogen 8, Creatinine 0.85, Estimat Glomerular Filtration Rate 118, BUN/Creatinine Ratio 9, Glucose Level 144H, Calcium Level 7.5L 06/06/23 15:58: Glucometer 122H 06/06/23 17:11: Glucometer 154H 06/06/23 18:26: Glucometer 114H 06/06/23 19:08: Sodium Level 138, Potassium Level 3.7, Chloride Level 113H, Carbon Dioxide Level 20L, Anion Gap 5, Blood Urea Nitrogen 6L, Creatinine 0.78, Estimat Glomerular Filtration Rate 121, BUN/Creatinine Ratio 8, Glucose Level 126H, Calcium Level 7.3L 06/06/23 20:06: Glucometer 115H 06/06/23 20:58: Glucometer 111H 06/06/23 21:56: Glucometer 136H 06/06/23 22:27: Sodium Level 137, Potassium Level 3.5L, Chloride Level 112H, Carbon Dioxide Level 19L, Anion Gap 6, Blood Urea Nitrogen 5L, Creatinine 0.73, Estimat Glomerular Filtration Rate 123, BUN/Creatinine Ratio 7, Glucose Level 146H, Calcium Level 7.1L 06/06/23 23:07: Glucometer 132H 06/07/23 00:00: Glucometer 154H 06/07/23 01:00: Glucometer 148H 06/07/23 02:16: Glucometer 155H 06/07/23 03:08: Sodium Level 139, Potassium Level 3.7, Chloride Level 113H, Carbon Dioxide Level 18L, Anion Gap 8, Blood Urea Nitrogen 4L, Creatinine 0.72, Estimat Glomerular Filtration Rate 124, BUN/Creatinine Ratio 6, Glucose Level 131H, Calcium Level 7.7L, Corrected Calcium 8.3L, Phosphorus Level 1.4L, Magnesium Level 1.6, Total Bilirubin 0.5, Aspartate Amino Transf (AST/SGOT) 15, Alanine Aminotransferase (ALT/SGPT) 10, Alkaline Phosphatase 64, Total Protein 5.4L, Albumin 3.2, Beta- Hydroxybutyrate (Chem panel) 0.08 06/07/23 04:07: Glucometer 173H 06/07/23 05:07: Glucometer 193H 06/07/23 06:15: Glucometer 180H Assessment/Plan Assessment/Plan Assessment/Plan Nausea/Vomiting Emesis with a positive Gastric Occult Blood DKA Pt is to continue IV fluids to keep electrolytes within normal limits and to keep a tight blood glc control. Pt is to continue taking the anti-emetic medication and the PPI. Will continue to monitor if an EGD is appropriate in the future if condition worsens. Clinical Quality Measures DVT/VTE Risk/Contraindication: Contraindications-Pharm: Other *list below* Other: CHRISTIAN Joe DO 06/07/23 1042: Subjective Time Seen by a Provider: 10:12 Subjective/Events-last exam Pt seen and examined, denies abdominal pain but does have nausea and emesis. Vomited last night, but still no black or bloody contents. Review of Systems HEENT: No Head Aches, No Visual Changes Pulmonary: No Cough Cardiovascular: No: Chest Pain, Palpitations Gastrointestinal: Nausea, Vomiting; No: Abdominal Pain Objective Exam General Appearance: No Apparent Distress HEENT: PERRL/EOMI Respiratory: Chest Non Tender, Lungs Clear, Normal Breath Sounds, No Accessory Muscle Use, No Respiratory Distress Cardiovascular: No Murmur, Tachycardia (100BPM) Gastrointestinal: normal bowel sounds, non tender, soft, no organomegaly, no pulsatile mass Extremity: No Calf Tenderness Neurologic/Psychiatric: Alert, Oriented x3 Assessment/Plan Assessment/Plan Assessment/Plan Nausea/Vomiting Emesis with a positive Gastric Occult Blood DKA Pt is to continue IV fluids to keep electrolytes within normal limits and to keep a tight blood glc control. Pt is to continue taking the anti-emetic medication and the PPI. Will sign off, but can reconsult if needed. Would plan EGD as outpt. Supervisory-Addendum Brief Verification & Attestation Participated in pt care: history, MDM, physical Personally performed: exam, history, MDM, supervision of care Care discussed with: Medical Student Procedures: n/a Verification and Attestation of Medical Student E/M Service A medical student performed and documented this service. I then reviewed and verified all information documented by the medical student and made mod ifications to such information, when appropriate. I personally performed a physical exam, medical decision making and then discussed any differences between the notes and made revisions as necessary to create one note. Christian Jensen , 06/07/23 , 10:42 GARIMA PEARSON Jun 07, 2023 07:04 CHRISTIAN JENSEN DO Jun 07, 2023 10:42
[2023-06-07] MEDS: PANTOPRAZOLE INJECTION 40 MG VIAL IV SCH ×2 (08:35→21:39)
[2023-06-07] MEDS: DOCUSATE SODIUM 100 MG CAPSULE PO SCH ×2 (09:29→21:39)
[2023-06-07] MEDS: SENNOSIDES 8.6 MG (SENOKOT) TAB PO SCH ×2 (09:29→21:39)
[2023-06-07 10:08] LABS: CHLORIDE 107 MMOL/L (98-107); POTASSIUM 3.5 MMOL/L (3.6-5.0); SODIUM 136 MMOL/L (135-145)
[2023-06-07 10:09] LABS: CALCIUM 8.2 MG/DL (8.5-10.1); GLUCOSE 176 MG/DL (70-105)
[2023-06-07 10:11] LABS: CARBON DIOXIDE 20 MMOL/L (21-32)
[2023-06-07 10:14] LABS: BUN/CREATININE RATIO 3; CREATININE SERUM 0.75 MG/DL (0.60-1.30); GFR ESTIMATED 122
[2023-06-07 10:24] LABS: BASOPHILS % (AUTO) 0 % (0-10); EOSINOPHILS % (AUTO) 0 % (0-10); HEMATOCRIT 32 % (40-54); HEMOGLOBIN 10.9 g/dL (13.3-17.7); LYMPHOCYTES % (AUTO) 7 % (12-44); MEAN CORPUSCULAR HEMOGLOBIN 26 pg (25-34); MEAN CORPUSCULAR HGB CONC 34 g/dL (32-36); MEAN CORPUSCULAR VOLUME 77 fL (80-99); MEAN PLATELET VOLUME 9.7 fL (9.0-12.2); MONOCYTES # (AUTO) 0.5 10^3/uL (0.0-1.0); MONOCYTES % (AUTO) 3 % (0-12); NEUTROPHILS # (AUTO) 13.4 10^3/uL (1.8-7.8); NEUTROPHILS % (AUTO) 90 % (42-75); PLATELET COUNT 279 10^3/uL (130-400)
[2023-06-07 10:56] LABS: BAND NEUTROPHILS 0 %; BASOPHILS % (MANUAL) 0 %; EOSINOPHILS % (MANUAL) 0 %; LYMPHOCYTES % (MANUAL) 9 %; MONOCYTES % (MANUAL) 2 %; NEUTROPHILS % (MANUAL) 89 %
[2023-06-07 10:57] LABS: RBC MORPH NORMAL
--- NOTE | 2023-06-07 11:41 | Progress Note - Hospitalist ---
Subjective HPI/CC On Admission Date Seen by Provider: Jun 07, 2023 Time Seen by Provider: 11:00 Chief complaint: DKA with hematemesis HPI: This is a 32-year-old male known to me from prior admits for DKA who presented with nausea and vomiting and found to have DKA and he reported hematemesis concerning for GI bleeding so he was admitted to the ICU placed on insulin drip and proton pump inhibitor IV and Dr. Tse has been consulted. Subjective/Events-last exam Patient remains stable No more hematemesis Patient a very brittle diabetic Moved down to fourth floor Review of Systems General: Fatigue, Malaise Objective Exam Vital Signs Vital Signs Date Time Temp Pulse Resp B/P (MAP) Pulse Ox O2 Delivery O2 Flow Rate FiO2 06/07/23 19:20 37.3 100 16 158/87 (110) 98 Room Air Capillary Refill : Less Than 3 Seconds General Appearance: No Apparent Distress, WD/WN, Chronically ill Respiratory: Lungs Clear, Normal Breath Sounds Cardiovascular: Regular Rate, Rhythm Neurologic/Psychiatric: Alert, Oriented x3, No Motor/Sensory Deficits, Normal Mood/Affect Results/Procedures Lab Laboratory Tests 06/06/23 22:27 06/07/23 03:08 06/07/23 09:47 Patient resulted labs reviewed. Assessment/Plan Assessment and Plan Assess & Plan/Chief Complaint Assessment: DKA Hematemesis Acute kidney failure Hypertension Plan: Supportive care PPI Moved to fourth floor Diagnosis/Problems Diagnosis/Problems (1) DKA (diabetic ketoacidoses) Status: Resolved Resolution Date/Time: 09/20/22 @ 21:48 (2) Hematemesis Clinical Quality Measures DVT/VTE Risk/Contraindication: Contraindications-Pharm: Other *list below* Other: NORAH Carlos DO Jun 07, 2023 11:40
[2023-06-07] MEDS ORDERED: INSULIN DETEMIR SQ SCH (11:45)
[2023-06-07] MEDS ORDERED: inSUlin DETERMIR 1 UNIT/0.01 ML (CHARGE PER UNIT) SQ SCH (11:45)
--- NOTE | 2023-06-07 12:16 | Tele-ICU Progress Note ---
Subjective Date Seen by a Provider: Jun 07, 2023 Time Seen by a Provider: 12:16 Subjective/Events-last exam (Tele-ICU Physician , consultation as per request of PCP Service provided via interactive audio and video telecommunications E-CARE system to a patient admitted to ICU bed in [facility]. Available chart/ vitals / labs / Images reviewed H&P is from ER notes Patient's information available about PMH, Shx, Fhx allergy reviewed inEMR. ROS as per chart and RN report Now in ICU, hemodynamically stable Video assessment done using teleICU camera, rest of exam as per RN Discussed with RN. Hospital course: (06/06) 32M Admitted for DKA, intractable vomiting/hematemesis. Positive occult blood stool. Chronic marajuana use. A/P DKA -Unclear precipitant, No suspicious for new infection *Insulin drip to stop Gastroparesis tx Lines : per , (Central Line Necessity Reviewed) Carrillo: OG: Nutrition: npo Analgesia: Anxiety/ delirium Plans in collaboration with bedside consultants and IM MDs. Discussed with RN to reach out if any questions or concerns A total of 10 minutes of critical care time was devoted to this patient today, required to treat and/or prevent further deterioration of critical care condition ( as above ) . I am remotely monitoring this patient from another state. I am unable to do the bedside exam, and history/physical and pertinent information is taken from other notes in the computer and bedside staff. . Sepsis Event Evaluation Height, Weight, BMI Height: 5'11.00" Weight: 126lbs. 0.0oz. [id number]; 18.64 BMI Method:Stated Exam Exam Patient acknowledged, consented, and participated in this virtual visit which was conducted using real time audio/video Vital Signs Date Time Temp Pulse Resp B/P (MAP) Pulse Ox O2 Delivery O2 Flow Rate FiO2 06/07/23 11:53 36.7 06/07/23 11:00 108 178/114 (135) Room Air 06/07/23 10:00 103 162/92 (115) Room Air 06/07/23 09:00 114 173/103 (126) Room Air 06/07/23 08:07 36.6 06/07/23 08:00 99 Room Air 06/07/23 08:00 96 164/100 (121) Room Air 06/07/23 07:04 100 06/07/23 07:00 101 174/105 (128) Room Air 06/07/23 06:00 89 169/92 (117) Room Air 06/07/23 05:00 101 185/106 (132) Room Air 06/07/23 04:00 36.3 06/07/23 04:00 111 177/95 (122) 99 Room Air 06/07/23 04:00 98 Room Air 06/07/23 03:00 89 143/102 (116) 98 Room Air 06/07/23 02:00 100 147/98 (114) Room Air 06/07/23 01:00 82 06/07/23 01:00 82 142/108 (119) 100 Room Air 06/07/23 00:00 80 133/106 (115) 100 Room Air 06/07/23 00:00 36.3 06/06/23 23:59 98 Room Air 06/06/23 23:08 93 125/89 (101) 94 Room Air 06/06/23 22:00 90 111/79 (93) Room Air 06/06/23 21:00 91 122/82 (96) 99 Room Air 06/06/23 20:00 89 130/87 (102) Room Air 06/06/23 20:00 99 Room Air 06/06/23 20:00 36.5 06/06/23 19:00 87 114/76 (88) Room Air 06/06/23 19:00 87 06/06/23 18:00 89 121/80 (94) Room Air 06/06/23 17:00 93 127/82 (97) Room Air 06/06/23 16:15 98 Room Air 06/06/23 16:00 110 137/111 (120) Room Air 06/06/23 15:00 96 123/83 (96) Room Air 06/06/23 14:00 96 120/79 (93) Room Air 06/06/23 13:00 103 123/80 (94) Room Air 06/06/23 12:55 105 I & O 06/07/23 07:00 Intake Total 7320 ml Output Total 5600 ml Balance 1720 ml Height & Weight Height: 5'11.00" Weight: 126lbs. 0.0oz. 57.320365ei; 18.64 BMI Method:Stated General Appearance: No Apparent Distress HEENT: PERRL/EOMI Respiratory: Chest Non Tender, Lungs Clear, Normal Breath Sounds, No Accessory Muscle Use, No Respiratory Distress Cardiovascular: No Murmur, Tachycardia (100BPM) Capillary Refill: Less Than 3 Seconds Peripheral Pulses: 2+ Dorsalis Pedis (R), 2+ Left Dors-Pedis (L), 2+ Radial Pulses (R), 2+ Radial Pulses (L) Gastrointestinal: normal bowel sounds, non tender, soft, no organomegaly, no pulsatile mass Extremity: No Calf Tenderness Neurologic/Psychiatric: Alert, Oriented x3 Skin: Normal Color, Warm/Dry Results Lab Laboratory Tests 06/06/23 00:55 06/06/23 04:42 06/06/23 06:50 06/06/23 11:02 06/06/23 15:05 06/06/23 19:08 06/06/23 22:27 06/07/23 03:08 06/07/23 09:47 Assessment/Plan Assessment/Plan 1 MAGI FAGAN MD Jun 07, 2023 12:16
[2023-06-07] MEDS ORDERED: amLODIPine 5 MG TABLET PO NR (13:30)
[2023-06-07] MEDS ORDERED: cloNIDine 0.1 MG TABLET PO PRN (13:30)
[2023-06-07] MEDS: hydrALAZINE 25 MG TABLET PO SCH ×2 (13:36→21:39)
[2023-06-07] MEDS: inSUlin ASPART 1 UNIT/0.01 ML (PER UNIT) SC SCH ×2 (14:52→21:40)
[2023-06-07 16:10] VITALS: BP 171/95
[2023-06-07 19:20] VITALS: BP 158/87
[2023-06-07] MEDS: inSUlin DETERMIR 1 UNIT/0.01 ML (CHARGE PER UNIT) SQ SCH (21:40)
[2023-06-08] VITALS (7 sets, daily range): BP systolic 122–166; BP diastolic 69–93
[2023-06-08] MEDS: inSUlin ASPART 1 UNIT/0.01 ML (PER UNIT) SC SCH ×4 (04:39→20:27)
[2023-06-08] MEDS: METOCLOPRAMIDE INJ 10 MG/2 ML IVP SCH ×3 (04:39→18:16)
[2023-06-08 05:59] LABS: BASOPHILS % (AUTO) 0 % (0-10); EOSINOPHILS # (AUTO) 0.1 10^3/uL (0.0-0.3); EOSINOPHILS % (AUTO) 1 % (0-10); HEMATOCRIT 36 % (40-54); HEMOGLOBIN 12.1 g/dL (13.3-17.7); LYMPHOCYTES # (AUTO) 1.2 10^3/uL (1.0-4.0); LYMPHOCYTES % (AUTO) 8 % (12-44); MEAN CORPUSCULAR HEMOGLOBIN 26 pg (25-34); MEAN CORPUSCULAR HGB CONC 34 g/dL (32-36); MEAN CORPUSCULAR VOLUME 77 fL (80-99); MEAN PLATELET VOLUME 9.2 fL (9.0-12.2); MONOCYTES # (AUTO) 0.8 10^3/uL (0.0-1.0); MONOCYTES % (AUTO) 5 % (0-12); NEUTROPHILS % (AUTO) 86 % (42-75); PLATELET COUNT 321 10^3/uL (130-400); WHITE BLOOD COUNT 15.2 10^3/uL (4.3-11.0)
[2023-06-08 06:05] LABS: POTASSIUM 3.4 MMOL/L (3.6-5.0)
[2023-06-08 06:06] LABS: CALCIUM 8.8 MG/DL (8.5-10.1)
[2023-06-08 06:08] LABS: TOTAL PROTEIN 7.3 GM/DL (6.4-8.2)
[2023-06-08 06:10] LABS: BILIRUBIN,TOTAL 1.2 MG/DL (0.1-1.0)
[2023-06-08 06:11] LABS: CREATININE SERUM 1.01 MG/DL (0.60-1.30)
[2023-06-08] MEDS: DOCUSATE SODIUM 100 MG CAPSULE PO SCH ×2 (09:06→20:29)
[2023-06-08] MEDS: SENNOSIDES 8.6 MG (SENOKOT) TAB PO SCH ×2 (09:06→20:30)
[2023-06-08] MEDS: ONDANSETRON INJECTION 4 MG/2 ML (SDV) IV PRN (09:06)
[2023-06-08] MEDS: hydrALAZINE 25 MG TABLET PO SCH ×3 (09:06→20:35)
[2023-06-08] MEDS: amLODIPine 5 MG TABLET PO SCH (09:06)
[2023-06-08] MEDS: inSUlin DETERMIR 1 UNIT/0.01 ML (CHARGE PER UNIT) SQ SCH ×2 (09:07→20:35)
[2023-06-08] MEDS: PANTOPRAZOLE INJECTION 40 MG VIAL IV SCH ×2 (09:11→20:35)
--- NOTE | 2023-06-08 11:57 | Progress Note - Hospitalist ---
Subjective HPI/CC On Admission Date Seen by Provider: Jun 08, 2023 Time Seen by Provider: 12:00 Chief complaint: DKA with hematemesis HPI: This is a 32-year-old male known to me from prior admits for DKA who presented with nausea and vomiting and found to have DKA and he reported hematemesis concerning for GI bleeding so he was admitted to the ICU placed on insulin drip and proton pump inhibitor IV and Dr. Tse has been consulted. 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 Assessment/Plan Assessment and Plan Assess & Plan/Chief Complaint Assessment: DKA Hematemesis Acute kidney failure Hypertension Plan: Supportive care PPI Advance diet Diagnosis/Problems Diagnosis/Problems (1) DKA (diabetic ketoacidoses) Status: Resolved Resolution Date/Time: 09/20/22 @ 21:48 (2) Hematemesis Clinical Quality Measures DVT/VTE Risk/Contraindication: Contraindications-Pharm: Other *list below* Other: NORAH Carlos DO Jun 08, 2023 11:57
[2023-06-08] MEDS: NS IV 1000 ML 1,000 ML IV SCH ×2 (13:03→22:00)
[2023-06-09] MEDS: METOCLOPRAMIDE INJ 10 MG/2 ML IVP SCH ×3 (00:38→12:00)
[2023-06-09 00:42] VITALS: BP 126/77
[2023-06-09 05:00] VITALS: BP 167/97
[2023-06-09 05:50] LABS: BASOPHILS % (AUTO) 0 % (0-10); EOSINOPHILS % (AUTO) 0 % (0-10); HEMATOCRIT 32 % (40-54); HEMOGLOBIN 10.8 g/dL (13.3-17.7); LYMPHOCYTES # (AUTO) 1.3 10^3/uL (1.0-4.0); LYMPHOCYTES % (AUTO) 12 % (12-44); MEAN CORPUSCULAR HEMOGLOBIN 26 pg (25-34); MEAN CORPUSCULAR HGB CONC 34 g/dL (32-36); MEAN CORPUSCULAR VOLUME 77 fL (80-99); MEAN PLATELET VOLUME 9.3 fL (9.0-12.2); MONOCYTES # (AUTO) 0.8 10^3/uL (0.0-1.0); MONOCYTES % (AUTO) 8 % (0-12); NEUTROPHILS # (AUTO) 8.5 10^3/uL (1.8-7.8); NEUTROPHILS % (AUTO) 79 % (42-75); PLATELET COUNT 266 10^3/uL (130-400); WHITE BLOOD COUNT 10.7 10^3/uL (4.3-11.0)
[2023-06-09 05:53] LABS: ALBUMIN 3.4 GM/DL (3.2-4.5)
[2023-06-09 05:54] LABS: POTASSIUM 3.3 MMOL/L (3.6-5.0)
[2023-06-09 05:56] LABS: TOTAL PROTEIN 6.3 GM/DL (6.4-8.2)
[2023-06-09 05:58] LABS: BILIRUBIN,TOTAL 0.5 MG/DL (0.1-1.0)
[2023-06-09] MEDS ORDERED: SCOPOLAMINE PATCH REMOVAL TP SCH (05:59)
[2023-06-09 06:00] LABS: CREATININE SERUM 0.79 MG/DL (0.60-1.30)
[2023-06-09] MEDS ORDERED: SCOPOLAMINE 1.5 MG PATCH TD ONE (06:00)
[2023-06-09] MEDS: inSUlin ASPART 1 UNIT/0.01 ML (PER UNIT) SC SCH ×2 (06:22→11:15)
[2023-06-09 08:19] VITALS: BP 154/91
[2023-06-09] MEDS: DOCUSATE SODIUM 100 MG CAPSULE PO SCH (08:35)
[2023-06-09] MEDS: SENNOSIDES 8.6 MG (SENOKOT) TAB PO SCH (08:35)
[2023-06-09] MEDS: amLODIPine 5 MG TABLET PO SCH (08:36)
[2023-06-09] MEDS: hydrALAZINE 25 MG TABLET PO SCH (08:36)
[2023-06-09] MEDS: NS IV 1000 ML 1,000 ML IV SCH (08:42)
[2023-06-09] MEDS: inSUlin DETERMIR 1 UNIT/0.01 ML (CHARGE PER UNIT) SQ SCH (08:50)
[2023-06-09] MEDS ORDERED: PANTOPRAZOLE 40 MG TABLET PO SCH (09:00)
[2023-06-09] MEDS ORDERED: AMLO-250 PO (12:34)
--- NOTE | 2023-06-09 12:34 | Discharge Summary ---
Discharge Summary Hospital Course Was the Problem List Reviewed?: Yes Problems/Dx: (1) DKA (diabetic ketoacidoses) Status: Resolved (2) Hematemesis Hospital Course Date of Admission: Jun 06, 2023 at 06:10 Admission Diagnosis : [facility] Date [facility]: 06/09/23 Discharge Diagnosis: [ ] Hospital Course: Uneventful hospital course although lengthy after he was admitted for DKA and hematemesis. general surgery evaluated him and found no evidence of need for intervention. Insulin drip ultimately resolved DKA. PPI was maintained. Overall he did very well and he was discharged in improved condition. Labs and Pending Lab Test: Laboratory Tests 06/08/23 16:20: Glucometer 92 06/08/23 20:25: Glucometer 100 06/09/23 05:23: White Blood Count 10.7, Red Blood Count 4.10L, Hemoglobin 10.8L, Hematocrit 32L, Mean Corpuscular Volume 77L, Mean Corpuscular Hemoglobin 26, Mean Corpuscular Hemoglobin Concent 34, Red Cell Distribution Width 14.8H, Platelet Count 266, Mean Platelet Volume 9.3, Immature Granulocyte % (Auto) 1, Neutrophils (%) (Auto) 79H, Lymphocytes (%) (Auto) 12, Monocytes (%) (Auto) 8, Eosinophils (%) (Auto) 0, Basophils (%) (Auto) 0, Neutrophils # (Auto) 8.5H, Lymphocytes # ( Auto) 1.3, Monocytes # (Auto) 0.8, Eosinophils # (Auto) 0.0, Basophils # (Auto) 0.0, Immature Granulocyte # (Auto) 0.1, Percent Immature Platelet Fraction 1.6, Sodium Level 139, Potassium Level 3.3L, Chloride Level 107, Carbon Dioxide Level 23, Anion Gap 9, Blood Urea Nitrogen 7, Creatinine 0.79, Estimat Glomerular Filtration Rate 120, BUN/Creatinine Ratio 9, Glucose Level 32*L, Calcium Level 8.0L, Corrected Calcium 8.5, Total Bilirubin 0.5, Aspartate Amino Transf (AST/SGOT) 15, Alanine Aminotransferase (ALT/SGPT) 10, Alkaline Phosphatase 81, Total Protein 6.3L, Albumin 3.4 06/09/23 07:04: Glucometer 182H 06/09/23 11:02: Glucometer 132H Microbiology 06/06/23 MRSA Screen - Final, Complete MRSA not isolated Home Meds Active Amlodipine Besylate 5 Mg Tablet 5 Mg PO DAILY Reported Levemir (Insulin Determir) 100 Unit/Ml Soln 5 Units SQ BID Lisinopril 40 Mg Tablet 40 Mg PO DAILY Novolog (Insulin Aspart) 100 Unit/Ml Susp Unit SQ AC MDD 30 UNITS USES PER SLIDING SCALE Metoclopramide HCl 10 Mg Tablet 10 Mg PO ACHS Pantoprazole Sodium 40 Mg Tablet.dr 40 Mg PO DAILY Assessment/Pt Instructions PCP in 1 week Discharge Planning: <30 minutes discharge planning Discharge Instructions Discharge Diet: ADA Diet Discharge Physical Examination Vital Signs Vital Signs Date Time Temp Pulse Resp B/P (MAP) Pulse Ox O2 Delivery O2 Flow Rate FiO2 06/09/23 11:42 100 Room Air 06/09/23 08:19 36.4 104 18 154/91 (112) General Appearance: No Apparent Distress, WD/WN, Chronically ill Allergies: Coded Allergies: Penicillins (Verified Allergy, Unknown, 05/23/06) Discharge Summary Date of Admission Jun 06, 2023 at 06:10 Date of Discharge Discharge Date: Jun 09, 2023 Admission Diagnosis Assessment: DKA Hematemesis Hypertension Cardiomyopathy Plan: Dr. Tse consult Proton pump inhibitor IV Insulin drip ICU Discharge Diagnosis Assessment: DKA Hematemesis Acute kidney failure Hypertension Plan: Supportive care PPI Advance diet (1) DKA (diabetic ketoacidoses) Status: Resolved (2) Hematemesis Clinical Quality Measures DVT/VTE Risk/Contraindication: Contraindications-Pharm: Other *list below* Other: NORAH Carlos DO Jun 09, 2023 12:34
[2023-06-09 12:43] VITALS: BP 151/88
== END 2023-06-09 13:50 | disposition home or self-care (01) | DRG 638 ==
LOC: EDUNIT# 00:24 → ER 00:26 → ICU 06:10 → 4TH 06-07 17:04
PROVIDERS: ADMIT Internal Medicine; ATTEND Internal Medicine
DX: E10.10 Type 1 diabetes mellitus with ketoacidosis without coma (principal); I42.9 Cardiomyopathy, unspecified; K92.0 Hematemesis; N17.9 Acute kidney failure, unspecified; Z88.0 Allergy status to penicillin; F17.290 Nicotine dependence, other tobacco product, uncomplicated; I10 Essential (primary) hypertension; F41.9 Anxiety disorder, unspecified; E87.6 Hypokalemia; E10.43 Type 1 diabetes mellitus with diabetic autonomic (poly)neuropathy; K31.84 Gastroparesis; E10.319 Type 1 diabetes mellitus with unspecified diabetic retinopathy without macular edema; K21.9 Gastro-esophageal reflux disease without esophagitis; F12.10 Cannabis abuse, uncomplicated; Z79.4 Long term (current) use of insulin; Z79.899 Other long term (current) drug therapy
CPT/HCPCS: 36415; 80048; 80053; 80306; 80320; 81000; 82010; 82271; 82947; 83735; 84100; 85007; 85025; 85027; 87081; 93005; 93041

== ENCOUNTER 2023-08-27 21:27 | Inpatient (IN) | payer SELFPAY ==
[~2023-08-27] VITALS: Ht 180.3 cm; Wt 59.6 kg
[~2023-08-27 21:27] MED LIST changes: +AMLO-250 PO; -PROC10TA10 PO; +PROC10TA15 PO
[2023-08-27] MEDS ORDERED: LACTATED RINGERS 1,000 ML 1,000 ML IV STA ×2 (21:37→22:28)
--- NOTE | 2023-08-27 21:37 | ED General ---
General Stated Complaint: BLOOD SUGAR PROBLEMS History of Present Illness Date Seen by Provider: Aug 27, 2023 Time Seen by Provider: 21:37 (RAMÓN WEISS MD) Initial Comments The patient is a 33-year-old male with a history of DKA who presents ED with nonstop vomiting since 630. He reports generalized weakness fatigue and abdominal discomfort. States his blood sugar was just over 200 this evening. Has been taking his insulin. On arrival blood sugar 562 on arrival. States he has been urinating frequently. Denies of any headache, fever, chills, chest pain, short of breath, cough, diarrhea, sore throat or ear pain. Patient states he has been seen in the past for DKA. Denies of any hematemesis. Patient actively vomiting on arrival. (GARIMA GUARDADO) Allergies and Home Medications Allergies Coded Allergies: Penicillins (Verified Allergy, Unknown, 05/23/06) Patient Home Medication List Home Medication List Reviewed: Yes (GARIMA GUARDADO) Amlodipine Besylate (Amlodipine Besylate) 5 Mg Tablet, 5 MG PO DAILY Prescribed by: NORAH JOSÉ on 06/09/23 1234 Insulin Aspart (Novolog) 100 Unit/Ml Susp, UNIT SQ AC, (Reported) Entered as Reported by: YUMIKO SNOW on 04/14/23 1036 Insulin Determir (Levemir) 100 Unit/Ml Soln, 5 UNITS SQ BID, (Reported) Entered as Reported by: YUMIKO SNOW on 06/06/23 1027 Lisinopril (Lisinopril) 40 Mg Tablet, 40 MG PO DAILY, (Reported) Entered as Reported by: YUMIKO SNOW on 04/14/23 1036 Metoclopramide HCl (Metoclopramide HCl) 10 Mg Tablet, 10 MG PO ACHS, (Reported) Entered as Reported by: DANNIE PERDOMO on 01/11/21 09 Pantoprazole Sodium (Pantoprazole Sodium) 40 Mg Tablet.dr, 40 MG PO DAILY, (Reported) Entered as Reported by: DANNIE PERDOMO on 01/11/21 09 Review of Systems Review of Systems Constitutional: No chills, No diaphoresis, No fever; malaise, weakness EENTM: No ear pain, No blurred vision, No double vision Respiratory: No cough, No dyspnea on exertion Cardiovascular: No chest pain Gastrointestinal: abdominal pain; No diarrhea; nausea, vomiting Genitourinary: No decreased output, No discharge Musculoskeletal: No back pain, No joint pain Skin: No change in color, No change in hair/nails (GARIMA GUARDADO) All Other Systems Reviewed Negative Unless Noted: Yes (GARIMA GUARDADO) Past Flzovys-Fltgmc-Unrfjp Hx Immunizations Up To Date Tetanus Booster (TDap): Unknown PED Vaccines UTD: No First/Initial COVID19 Vaccinat: 01/05/21 Second COVID19 Vaccination Pierre: 02/04/21 Third COVID19 Vaccination Date: 02/04/21 (RAMÓN WEISS MD) Seasonal Allergies Seasonal Allergies: No (RAMÓN WEISS MD) Past Medical History Surgery/Hospitalization HX: TYPE 1 DM, DKA DENIES SURG. Surgeries: No Respiratory: No Currently Using CPAP: No Currently Using BIPAP: No Cardiac: Yes Cardiomyopathy, Hypertension Neurological: No Reproductive Disorders: No Sexually Transmitted Disease: No HIV/AIDS: No Genitourinary: No Gastrointestinal: No Gastroesophageal Reflux Musculoskeletal: No Endocrine: Yes Diabetes, Insulin dep HEENT: No Loss of Vision: Denies Hearing Impairment: Denies Cancer: No Did You Recieve Any Treatments: No Psychosocial: Yes Anxiety Integumentary: Yes (WOUNDS TO LOWER LEGS-- REQUIRED WOUND CARE CLINIC TREATMENT) Blood Disorders: No Adverse Reaction/Blood Tranf: No (RAMÓN WEISS MD) Family Medical History Cardiovascular disease 19 FATHER Hypertension 19 FATHER Heart Disease, Hypertension (RAMÓN WEISS MD) Physical Exam Vital Signs Vital Signs - First Documented 08/27/23 21:35 Temp 36.7 Pulse 120 Resp 20 B/P (MAP) 178/112 (134) Pulse Ox 98 O2 Delivery Room Air (GARIMA GUARDADO) Vital Signs Capillary Refill : (RAMÓN WEISS MD) Height, Weight, BMI Height: 5'11.00" Weight: 126lbs. 0.0oz. 57.154006ga; 18.64 BMI Method:Stated (RAMÓN WEISS MD) General Appearance: No Apparent Distress, WD/WN Eyes: Bilateral Eye Normal Inspection, Bilateral Eye PERRL, Bilateral Eye EOMI HEENT: PERRL/EOMI, TMs Normal, Normal ENT Inspection, Pharynx Normal Neck: Full Range of Motion, Normal Inspection, Non Tender Respiratory: Chest Non Tender, Lungs Clear, Normal Breath Sounds, No Accessory Muscle Use Cardiovascular: Regular Rate, Rhythm, No Edema, No Gallop, No JVD Gastrointestinal: Normal Bowel Sounds, No Organomegaly, No Pulsatile Mass, Non Tender Back: Normal Inspection, No CVA Tenderness Extremity: Normal Capillary Refill, Normal Inspection, Normal Range of Motion Neurologic/Psychiatric: Alert, Oriented x3, No Motor/Sensory Deficits, Normal 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/Affect, 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 Norm as Tested Skin: Normal Color, Warm/Dry (GARIMA GUARDADO) Focused Exam Lactate Level 08/27/23 21:50: Lactic Acid Level 3.91*H (GARIMA GUARDADO) Lactic Acid Level Laboratory Tests Test 08/27/23 21:50 Lactic Acid Level 3.91 MMOL/L (0.50-2.00) *H (GARIMA GUARDADO) Progress/Results/Core Measures Suspected Sepsis SIRS Temperature: Pulse: Respiratory Rate: Blood Pressure / Mean: (RAMÓN WEISS MD) SIRS Laboratory Tests 08/27/23 21:40: White Blood Count 8.6 08/27/23 21:50: Lactic Acid Level 3.91*H Laboratory Tests 08/27/23 21:40: Creatinine 1.52H, Platelet Count 321, Total Bilirubin 0.7 (GARIMA GUARDADO) Results/Orders Lab Results Laboratory Tests Test 08/27/23 21:40 08/27/23 21:50 Range/Units White Blood Count 8.6 4.3-11.0 10^3/uL Red Blood Count 4.48 4.30-5.52 10^6/uL Hemoglobin 12.0 L 13.3-17.7 g/dL Hematocrit 35 L 40-54 % Mean Corpuscular Volume 79 L 80-99 fL Mean Corpuscular Hemoglobin 27 25-34 pg Mean Corpuscular Hemoglobin Concent 34 32-36 g/dL Red Cell Distribution Width 13.7 10.0-14.5 % Platelet Count 321 130-400 10^3/uL Mean Platelet Volume 9.5 9.0-12.2 fL Immature Granulocyte % (Auto) 0 % Neutrophils (%) (Auto) 80 H 42-75 % Lymphocytes (%) (Auto) 13 12-44 % Monocytes (%) (Auto) 5 0-12 % Eosinophils (%) (Auto) 1 0-10 % Basophils (%) (Auto) 0 0-10 % Neutrophils # (Auto) 6.9 1.8-7.8 10^3/uL Lymphocytes # (Auto) 1.1 1.0-4.0 10^3/uL Monocytes # (Auto) 0.4 0.0-1.0 10^3/uL Eosinophils # (Auto) 0.1 0.0-0.3 10^3/uL Basophils # (Auto) 0.0 0.0-0.1 10^3/uL Immature Granulocyte # (Auto) 0.0 0.0-0.1 10^3/uL Venous Blood pH 7.46 H 7.31-7.41 Venous Blood Partial Pressure CO2 28 L 40-52 MMHG Venous Blood HCO3 20 L 22-28 MMOL/L Sodium Level 132 L 135-145 MMOL/L Potassium Level 4.6 3.6-5.0 MMOL/L Chloride Level 99 98-107 MMOL/L Carbon Dioxide Level 17 L 21-32 MMOL/L Anion Gap 16 H 5-14 MMOL/L Blood Urea Nitrogen 16 7-18 MG/DL Creatinine 1.52 H 0.60-1.30 MG/DL Estimat Glomerular Filtration Rate 61 BUN/Creatinine Ratio 11 Glucose Level 647 *H 70-105 MG/DL Calcium Level 9.5 8.5-10.1 MG/DL Corrected Calcium 9.3 8.5-10.1 MG/DL Magnesium Level 2.0 1.6-2.4 MG/DL Total Bilirubin 0.7 0.1-1.0 MG/DL Aspartate Amino Transf (AST/SGOT) 38 H 5-34 U/L Alanine Aminotransferase (ALT/SGPT) 19 0-55 U/L Alkaline Phosphatase 97 40-136 U/L Total Protein 8.0 6.4-8.2 GM/DL Albumin 4.2 3.2-4.5 GM/DL Beta-Hydroxybutyrate (Chem panel) 2.10 H 0.00-0.27 MMOL/L Lactic Acid Level 3.91 *H 0.50-2.00 MMOL/L (GUARDADO,GARIMA A PA) My Orders Orders - GARIMA GUARDADO Accucheck Stat ONCE (08/27/23 21:37) Ondansetron Injection (Ondansetron Inj (08/27/23 21:45) Lactated Ringers 1,000 Ml (Lactated Ring (08/27/23 21:37) Venous Blood Gas (08/27/23 21:37) Lactic Acid Analyzer (08/27/23 21:37) Cbc And Automated Diff (08/27/23 21:37) Comprehensive Metabolic Panel (08/27/23 21:37) Beta Hydroxybutyrate (08/27/23 21:37) Ua Culture If Indicated (08/27/23 21:37) Magnesium (08/27/23 21:37) Insulin (Regular) Per Unit (Insulin (Reg (08/27/23 22:15) Insulin Regular Drip (Insulin Regular Dr (08/27/23 22:07) Promethazine Injection (Promethazine I (08/27/23 22:15) Metoclopramide Injection (Metoclopramide (08/27/23 22:30) Lactated Ringers 1,000 Ml (Lactated Ring (08/27/23 22:28) (GARIMA GUARDADO) Medications Given in ED Current Medications Medications Dose Ordered Sig/Luis Route Start Time Stop Time Status Last Admin Dose Admin Insulin Human Regular 10 unit ONCE ONCE IV 08/27/23 22:15 08/27/23 22:16 DC 08/27/23 22:28 10 UNIT Metoclopramide HCl 10 mg ONCE ONCE IVP 08/27/23 22:30 08/27/23 22:31 DC 08/27/23 22:28 10 MG Ondansetron HCl 4 mg ONCE ONCE IVP 08/27/23 21:45 08/27/23 21:46 DC 08/27/23 21:47 4 MG (GARIMA GUARDADO) Vital Signs/I&O 08/27/23 21:35 Temp 36.7 Pulse 120 Resp 20 B/P (MAP) 178/112 (134) Pulse Ox 98 O2 Delivery Room Air (GARIMA GUARDADO) Vital Signs/I&O Capillary Refill : (RAMÓN WEISS MD) Critical Care Note Critical Care Start Time: 21:45 Stop Time: 22:15 Total Time (minutes) 30 min Progress DKA requiring insulin drip (GARIMA GUARDADO) Departure Communication (PCP) Reviewed previous ER visits, H&P, lab testing. Differential diagnosis DKA, hyperglycemia, hypertension, dehydration, electrolyte abnormality. Patient on arrival vomiting. Vomiting since 630. Blood sugar read over 200. Did take his insulin today. Initial Accu-Chek showed right above 500. Hypertensive 171/103. Currently on lisinopril. DKA work-up was initiated. Started on 1 L of LR. General lab work CBC, CMP, beta hydroxybutyrate, VBG, lactic acid urinalysis was ordered. CBC grossly unremarkable. Chemistry showed sodium 132, anion gap of 16, bicarb 17, creatinine 1.52, lactic acid 3.91, blood sugar 647, beta hydroxybutyrate 2. Concern for early DKA. Patient received 10 units regular insulin and started on insulin drip. Received a second liter of LR. Continue vomiting here. Received 4 mg of Zofran. Do not have Phenergan in stock. Patient received Reglan 10 mg. Vomiting somewhat improved. Urinalysis currently pending. VBG showed pH 7.46, bicarb of 20. Blood pressure elevated we will continue monitor and treat as needed. Patient was discussed with resident on-call for [facility]. Agreed to accept patient to ICU on behalf of Dr. Silverman. Patient agrees with plan of action. Total critical care time 30 minutes secondary to DKA requiring insulin drip (GARIMA GUARDADO) Impression Primary Impression: DKA (diabetic ketoacidosis) Additional Impression: HTN (hypertension) Disposition: ADMITTED INPATIENT Condition: Stable Admissions Decision to Admit Reason: Admit from ER (General) Decision to Admit/Date: Aug 27, 2023 Time/Decision to Admit Time: 22:06 (GARIMA GUARDADO) Departure-Patient Inst. Referrals: [facility] (PCP/Family) Primary Care Physician RAMÓN WEISS MD Aug 27, 2023 21:37 GARIMA GUARDADO Aug 27, 2023 21:46
[2023-08-27] MEDS ORDERED: ONDANSETRON INJECTION 4 MG/2 ML (SDV) IVP ONE (21:45)
[2023-08-27 21:46] LABS: BASOPHILS % (AUTO) 0 % (0-10); EOSINOPHILS # (AUTO) 0.1 10^3/uL (0.0-0.3); EOSINOPHILS % (AUTO) 1 % (0-10); HEMATOCRIT 35 % (40-54); LYMPHOCYTES # (AUTO) 1.1 10^3/uL (1.0-4.0); LYMPHOCYTES % (AUTO) 13 % (12-44); MEAN CORPUSCULAR HEMOGLOBIN 27 pg (25-34); MEAN CORPUSCULAR HGB CONC 34 g/dL (32-36); MEAN CORPUSCULAR VOLUME 79 fL (80-99); MEAN PLATELET VOLUME 9.5 fL (9.0-12.2); MONOCYTES # (AUTO) 0.4 10^3/uL (0.0-1.0); MONOCYTES % (AUTO) 5 % (0-12); NEUTROPHILS # (AUTO) 6.9 10^3/uL (1.8-7.8); NEUTROPHILS % (AUTO) 80 % (42-75); PLATELET COUNT 321 10^3/uL (130-400); WHITE BLOOD COUNT 8.6 10^3/uL (4.3-11.0)
[2023-08-27 21:57] LABS: ALBUMIN 4.2 GM/DL (3.2-4.5); POTASSIUM 4.6 MMOL/L (3.6-5.0)
[2023-08-27 21:58] LABS: CALCIUM 9.5 MG/DL (8.5-10.1)
[2023-08-27 22:01] LABS: BILIRUBIN,TOTAL 0.7 MG/DL (0.1-1.0)
[2023-08-27 22:03] LABS: CREATININE SERUM 1.52 MG/DL (0.60-1.30)
[2023-08-27] MEDS ORDERED: PROMETHAZINE INJ 25 MG/ML VIAL IVP ONE (22:15)
[2023-08-27] MEDS ORDERED: inSUlin (REGULAR) HUMAN 1 UNIT/0.01 ML (CHARGE PER UNIT) IV ONE (22:15)
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
--- OUTSIDE RECORDS SUMMARY | 2023-08-27 22:28 | XMS REPORT ---
Author Author [facility] ter of [facility] ter of [facility] Address Unknown Phone Unavailable Care Team Providers Care Manufacturing Engineer Chief Name Role Phone YUMIKO DIEGO Unavailable PROBLEMS Type Condition ICD9-CM Code BVF12-DC Code Onset Dates Condition Status W/U Status Risk SNOMED Code Notes Problem Anxiety F41.9 confirmed 57798883 Problem Erectile dysfunction due to diseases classified elsewhere N52.1 confirmed 950751261 Problem Acute nonseasonal allergic rhinitis due to pollen J30.1 confirmed 14215170 Problem Severe single current episode of major depressive disorder, 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 confirmed 03541871 Problem Type 1 diabetes mellitus with unspecified diabetic retinopathy without macular edema E10.319 confirmed 618410754 Problem Type 1 diabetes mellitus with other specified complication E10.69 confirmed 34476497 Problem GERD with esophagitis K21.0 confirmed 695009293 Problem Type 1 diabetes mellitus with ketoacidosis and without coma E10.10 confirmed 832600881 Problem Type 1 diabetes mellitus with hypoglycemia and without coma E10.649 confirmed 1851548172 9108 Problem Hyperthyroidi sm E05.90 confirmed 57295767 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.4 confirmed 238596756 Problem Type 1 diabetes mellitus with diabetic autonomic (poly)neuropa thy E10.43 confirmed 164770555 Problem Essential hypertension I10 confirmed 82093183 Problem Cardiomyopath y I42.9 confirmed 65153687 Problem Type 1 diabetes mellitus with ketoacidosis without coma E10.10 confirmed 365409302 Problem Elevated white blood cell count D72.829 confirmed 292306572 Problem Essential (primary) hypertension I10 confirmed 48616759 Problem Hypothyroidis m E03.9 confirmed 21925794 Problem Gastroesophag eal reflux disease without esophagitis K21.9 confirmed 832184162 Problem Gastro-esopha geal reflux disease without esophagitis K21.9 confirmed 879331820 Problem Gastroparesis K31.84 confirmed 07583 5006 Problem Type 1 diabetes mellitus with diabetic polyneuropath y E10.42 confirmed 30762140 Problem Thyrotoxicosi s, unspecified without thyrotoxic crisis or storm E05.90 confirmed 10608471 Problem Type 1 diabetes E10.9 confirmed 368960095 Problem Gastroparesis due to DM E11.43 confirmed 821334357 Problem Type 1 diabetes mellitus E10.9 confirmed 80992631 ALLERGIES Allergen (clinical drug ingredient) Drug/Non Drug Allergy documented on EMR Reaction Allergy Type Onset Date Status penicillin V Penicillin V Potassium([facility] Code:[address]-42) rash Drug Allergy Active ENCOUNTERS from 1989 to 2023-08-10 Encounter Location Date Provider Diagnosis [facility] [address] [facility] [id number] [place] [address] Jul, YUMIKO DIEGO Encounter for immunization Z23 ; Type 1 diabetes E10.9 and Thyrotoxicosis, unspecified without thyrotoxic crisis or storm E05.90 IMMUNIZATIONS Vaccine Route Administration Date Status dtap (history) Unknown April 07, 1994 Administered dtap (history) Unknown January 06, 1994 Administere d mmr-II (history) Unknown May 18, 1995 Administere d mmr-II (history) Unknown January 06, 1994 Administe ladarius td adult 2 Lf tetanus toxoid , preservative free, adsorbed (history) Unknown Jun 01, 2003 Administered td adult 2 Lf tetanus toxoid , preservative free, adsorbed (history) Unknown Nov 14, 1996 Administered dtap (history) Unknown May 18, 1995 Administered STATE FUNDED FLULAVAL QUAD 0 .5ML ( 6 MO AND UP) 2020 IM Intramuscular Aug 09, 2021 Administered hib (history) Unknown January 06, 1994 Administered 1st Dose HRSA MODERNA, COVID -19, 0.5mL IM Intramuscular January 05, 2021 Administered poliovirus unspecified (history) Unknown December Administered poliovirus unspecified (history) Unknown April 07, 1994 Administered poliovirus unspecified (history) Unknown May 18, 1995 Administered influenza (history) Unknown Sep 29, 2019 Administ ered tdap (history) Unknown Aug 11, 2006 Administered PRIVATE FLULAVAL QUAD 0.5ML (6 MO AND UP) 2019 IM Intramuscular Jul 10, 2020 Administered 2nd Dose RAJIA LONNY, COVID -19, 0.5mL IM Intramuscular February 04, 2021 Administered PRIVATE FLU -23 (FLULAVAL) AGE 6MO AND UP IM Intramuscular Aug 22, 2022 Administered SOCIAL HISTORY Sex Assigned At : Social [...] user? No REASON FOR REFERRAL No Information VITAL SIGNS Height 71 in Jul, Weight 126.5 lbs Jul, Weight-kg 57.38 kg Jul, Temperature 97.5 degrees Fahrenheit Jul, Heart Rate 115 bpm Jul, Respiratory Rate 20 bpm Jul, Oximetry 99 % Jul, BMI 17.64 kg/m2 Jul, Blood pressure systolic 104 mmHg Jul, Blood pressure diastolic 62 mmHg Jul, MEDICATIONS Medication SIG (Take, Route, Frequency, Duration) Notes Start Date End Date Status Insulin Aspart 100 UNIT/ML INJECT TWO (2) UNITS SUBCUTANEOUSLY (UNDER THE SKIN) PER CARB THREE (3) TIMES DAILY (MAXIMUM DOSE OF 30 UNITS/24 HOURS) DISCARD VIAL 28 DAYS AFTER FIRST USE for 28 Active BD Insulin Syr Ultrafine II 31G X /16 as directed Jun, Active Sildenafil Citrate 50 MG TAKE ONE-HALF (1/2) TO ONE (1) TABLET BY MOUTH 30 MINUTES BEFORE SEXUAL ACTIVITY NEEDED for 30 Active Glucocard Shine Connex w/Device as directed Aug, Active Metoclopramide HCl 10 MG 1 tablet before meals and at hs Orally Four times a day for 30 days One tablet before meals and at hs Jun, Active Levemir 100 unit/ml 10 Unit by Subcutaneous route 1 time per day at bedtime Subcutaneous at bedtime for 90 days per discharge summary Patient Assistance Active Lisinopril 40 MG TAKE ONE (1) TABLET BY MOUTH ONCE DAILY for 90 Active Pantoprazole Sodium 40 MG TAKE ONE (1) TABLET BY MOUTH ONCE DAILY for 30 days please keep appt in08/2023 Active Glucocard Shine Test - USE ONE [...] DAYS AFTER FIRST USE* for 28 Active PROCEDURES from 1989 to 2023-08-10 Procedure Date Ordered Date Performed Result Body Sit e ROUTINE VENIPUNCTURE 2021-08-09 2021-08-09 N/A REASON FOR VISIT diabetic check needs A1C JACOBO [facility]GAN MEDICAL (GENERAL) HISTORY Type Description Date Medical [...] Hospitalization History Pneumonia 11/2014 Hospitalization History diabetes 2017 Hospitalization History DKA / egd stoach scope w as done 08/2021 Hospitalization History DKA 02/14 to 02/16/2022 Hospitalization History DKA 03/30 Hospitalization History D[place] 08/06 Hospitalization History D[place] in for 2 or 3 days 10/06 MENTAL STATUS No Information ASSESSMENTS Encounter Date Diagnosis Assessment Notes Treatment Notes Treatment Clinical Notes Jul, Encounter for immunization (ICD-10 - Z23) Jul, Type 1 diabetes (ICD-10 - E10.9) Not well controlled. Followed by endocrinology at [place]. 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 All likely tied to his DM. Contacted Denise Herring who has graciously reached out to patient about this. Labs today Jul, Thyrotoxicosis, unspecified without thyrotoxic crisis or storm (ICD-10 - E05.90) Need uptake scan but cannot get until he completes financial sales consultant through [employer]. Repeat TSH today Jul, Other Patient seen and examined with the student. Agree with above documentation. I personally documented A/P. PLAN OF TREATMENT Medication Medication Name Sig [...] MOUTH EVERY SIX (6) HOURS for 8 Pantoprazole Sodium 40 MG TAKE ONE (1) T ABLET BY MOUTH ONCE DAILY for 30 days Lisinopril 40 MG TAKE ONE (1) TABLET BY MOUTH ONCE DAILY for 90 NovoLOG 100 UNIT/ML INJECT TWO (2) UNITS SUBCUTANEOUSLY (UNDER THE SKIN) PER CARB THREE (3) TIMES DAILY (MAX DAILY DOSE 30 UNITS) *DISCARD VIAL 28 DAYS AFTER FIRST USE* for 28 Sildenafil Citrate 50 MG TAKE ONE-HALF ( 1/2) TO ONE (1) TABLET BY MOUTH 30 MINUTES BEFORE SEXUAL ACTIVITY NEEDED for 30 Treatment Notes Assessment Notes Clinical Notes Type 1 diabetes Not well control led. Followed by endocrinology at [place]. 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 All likely tied to his DM. Contacted Denise Herring who has graciously reached out to patient about this. 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 Repeat TSH today Next Appt Details 4 Weeks Reason:finanacial ai d follow up Provider Name:YUMIKO DIEGO, 2023-08-21 02:40:00 PM, [address] [facility], [id number], [place], [address], Follow Up:4 Weeksfinanacial aid follow up MEDICATIONS ADMINISTERED Medication Instructions Date of Administration Dosag e SOLUMEDROL (UP TO 125 MG) Sep, 12 5 mg
--- OUTSIDE RECORDS SUMMARY | 2023-08-27 22:28 | XMS REPORT ---
Author Author [facility]ly [facility] ter of [facility] ter of [facility] Address Unknown Phone Unavailable Care Team Providers Care Dining Service Inspector Name Role Phone YUMIKO DIEGO Unavailable PROBLEMS Type Condition ICD9-CM Code WVD38-DN Code Onset Dates Condition Status W/U Status Risk SNOMED Code Notes Problem Anxiety F41.9 confirmed 34059663 Problem Erectile dysfunction due to diseases classified elsewhere N52.1 confirmed 032744041 Problem Acute nonseasonal allergic rhinitis due to pollen J30.1 confirmed 72568719 Problem Severe single current episode of major depressive disorder, 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 confirmed 70446958 Problem Type 1 diabetes mellitus with unspecified diabetic retinopathy without macular edema E10.319 confirmed 765749872 Problem Type 1 diabetes mellitus with other specified complication E10.69 confirmed 91671710 Problem GERD with esophagitis K21.0 confirmed 569458208 Problem Type 1 diabetes mellitus with ketoacidosis and without coma E10.10 confirmed 671210205 Problem Type 1 diabetes mellitus with hypoglycemia and without coma E10.649 confirmed 8864003768 9108 Problem Hyperthyroidi sm E05.90 confirmed 64133265 Problem 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 confirmed 130747078 Problem Type 1 diabetes mellitus with diabetic autonomic (poly)neuropa thy E10.43 confirmed 645346539 Problem Essential hypertension I10 confirmed 08138002 Problem Cardiomyopath y I42.9 confirmed 76868896 Problem Type 1 diabetes mellitus with ketoacidosis without coma E10.10 confirmed 631020482 Problem Elevated white blood cell count D72.829 confirmed 051563513 Problem Essential (primary) hypertension I10 confirmed 84600167 Problem Hypothyroidis m E03.9 confirmed 80750654 Problem Gastroesophag eal reflux disease without esophagitis K21.9 confirmed 291355087 Problem Gastro-esopha geal reflux disease without esophagitis K21.9 confirmed 634951322 Problem Gastroparesis K31.84 confirmed 70749 5006 Problem Type 1 diabetes mellitus with diabetic polyneuropath y E10.42 confirmed 80746314 Problem Thyrotoxicosi s, unspecified without thyrotoxic crisis or storm E05.90 confirmed 08725123 Problem Type 1 diabetes E10.9 confirmed 064612625 Problem Gastroparesis due to DM E11.43 confirmed 429391802 Problem Type 1 diabetes mellitus E10.9 confirmed 12971232 ALLERGIES Allergen (clinical drug ingredient) Drug/Non Drug Allergy documented on EMR Reaction Allergy Type Onset Date Status penicillin V Penicillin V Potassium([facility] Code:[address]-90) rash Drug Allergy Active ENCOUNTERS from 1989 to 2023-08-20 Encounter Location Date Provider Diagnosis [facility] [address] [facility] [id number] [place] [address] Aug, YUMIKO DIEGO IMMUNIZATIONS Vaccine Route Administration Date Status dtap (history) Unknown April 07, 1994 Administered mmr-II (history) Unknown May 18, 1995 Administere d mmr-II (history) Unknown January 06, 1994 Administe red hib (history) Unknown January 06, 1994 Administered td adult 2 Lf tetanus toxoid , preservative free, adsorbed (history) Unknown Jun 01, 2003 Administered td adult 2 Lf tetanus toxoid , preservative free, adsorbed (history) Unknown Nov 14, 1996 Administered dtap (history) Unknown May 18, 1995 Administered dtap (history) Unknown January 06, 1994 Administere d [facility] FUNDED FLULAVAL QUAD 0 .5ML ( 6 [...] 2019 IM Intramuscular Jul 10, 2020 Administered PRIVATE FLU 22-23 (FLULAVAL) AGE 6MO AND UP IM Intramuscular Aug 22, 2022 Administered 1st Dose HRSA MODERNA, COVID -19, 0.5mL IM Intramuscular January 05, 2021 Administered poliovirus unspecified (history) Unknown December Administered SOCIAL HISTORY Sex Assigned At : [...] USE* for 28 Active REASON FOR VISIT Hospital Discharge MEDICAL (GENERAL) HISTORY Type Description Date Medical [...] 3 days 10/06 MENTAL STATUS No Information PLAN OF TREATMENT Medication Medication Name Sig [...] Name:YUMIKO DIEGO, 2023-08-21 02:40:00 PM, [address] [facility], [id number], [place], [address], MEDICATIONS ADMINISTERED Medication Instructions Date of Administration Dosag e SOLUMEDROL (UP TO 125 MG) Sep, 12 5 mg
--- OUTSIDE RECORDS SUMMARY | 2023-08-27 22:28 | XMS REPORT ---
Author Author [facility] ter of [facility] ter of [facility] Address Unknown Phone Unavailable Care Team Providers Care Tie Bucker Name Role Phone YUMIKO DIEGO Unavailable PROBLEMS Type Condition ICD9-CM Code UXE50-ND Code Onset Dates Condition Status W/U Status Risk SNOMED Code Notes Problem Anxiety F41.9 confirmed 10342855 Problem Erectile dysfunction due to diseases classified elsewhere N52.1 confirmed 919420994 Problem Acute nonseasonal allergic rhinitis due to pollen J30.1 confirmed 12467283 Problem Severe single current episode of major depressive disorder, 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 confirmed 98344631 Problem Type 1 diabetes mellitus with unspecified diabetic retinopathy without macular edema E10.319 confirmed 719503535 Problem Type 1 diabetes mellitus with other specified complication E10.69 confirmed 24467867 Problem GERD with esophagitis K21.0 confirmed 832078202 Problem Type 1 diabetes mellitus with ketoacidosis and without coma E10.10 confirmed 856174319 Problem Type 1 diabetes mellitus with hypoglycemia and without coma E10.649 confirmed 6635948865 9108 Problem Hyperthyroidi sm E05.90 confirmed 23127207 Problem 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.4 confirmed 058356050 Problem Type 1 diabetes mellitus with diabetic autonomic (poly)neuropa thy E10.43 confirmed 209238026 Problem Essential hypertension I10 confirmed 79487763 Problem Cardiomyopath y I42.9 confirmed 49940617 Problem Type 1 diabetes mellitus with ketoacidosis without coma E10.10 confirmed 812227067 Problem Elevated white blood cell count D72.829 confirmed 665010981 Problem Essential (primary) hypertension I10 confirmed 91128326 Problem Hypothyroidis m E03.9 confirmed 63949481 Problem Gastroesophag eal reflux disease without esophagitis K21.9 confirmed 472001253 Problem Gastro-esopha geal reflux disease without esophagitis K21.9 confirmed 187712778 Problem Gastroparesis K31.84 confirmed 65418 5006 Problem Type 1 diabetes mellitus with diabetic polyneuropath y E10.42 confirmed 77149515 Problem Thyrotoxicosi s, unspecified without thyrotoxic crisis or storm E05.90 confirmed 47336521 Problem Type 1 diabetes E10.9 confirmed 192195746 Problem Gastroparesis due to DM E11.43 confirmed 313569695 Problem Type 1 diabetes mellitus E10.9 confirmed 73969669 ALLERGIES Allergen (clinical drug ingredient) Drug/Non Drug Allergy documented on EMR Reaction Allergy Type Onset Date Status penicillin V Penicillin V Potassium([facility] Code:[address]-82) rash Drug Allergy Active ENCOUNTERS from 1989 to 2023-08-03 Encounter Location Date Provider Diagnosis [facility] [address] [facility] [id number] [place] [address] Jul, YUMIKO DIEGO IMMUNIZATIONS Vaccine Route Administration Date [...] (history) Unknown January 06, 1994 Administere d 2nd Dose HRSA MODERNA, COVID -19, 0.5mL IM Intramuscular February 04, 2021 Administered PRIVATE FLULAVAL QUAD 0.5ML (6 MO AND UP) 2019 IM Intramuscular Jul 10, 2020 Administered poliovirus unspecified (history) Unknown April 07, 1994 Administered poliovirus unspecified (history) Unknown May 18, 1995 Administered influenza (history) Unknown Sep 29, 2019 Administ ered tdap (history) Unknown Aug 11, 2006 Administered 1st Dose HRSA MODERNA, COVID -19, 0.5mL IM Intramuscular January 05, 2021 Administered STATE FUNDED FLULAVAL QUAD 0 .5ML ( 6 MO AND UP) 2020 IM Intramuscular Aug 09, 2021 Administered PRIVATE FLU 22-23 (FLULAVAL) AGE 6MO AND UP IM Intramuscular Aug 22, 2022 Administered poliovirus unspecified (history) Unknown December Administered [...] USE* for 28 Active REASON FOR VISIT Weiss 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
--- OUTSIDE RECORDS SUMMARY | 2023-08-27 22:28 | XMS REPORT ---
Author Author [facility] ter of [facility] ter of [facility] Address Unknown Phone Unavailable Care Team Providers Care Salt Washer [employer] Name Role Phone YUMIKO DIEGO Unavailable PROBLEMS Type Condition ICD9-CM Code OOU73-AA Code Onset Dates Condition Status W/U Status Risk SNOMED Code Notes Problem Erectile dysfunction due to diseases classified elsewhere N52.1 confirmed 078136092 Problem Severe single current episode of major depressive disorder, 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 confirmed 51873259 Problem Anxiety F41.9 confirmed 41061140 Problem Type 1 diabetes mellitus with other specified complication E10.69 confirmed 60893966 Problem Essential hypertension I10 confirmed 92172795 Problem Type 1 diabetes mellitus with ketoacidosis and without coma E10.10 confirmed 545815023 Problem Type 1 diabetes mellitus with diabetic polyneuropath y E10.42 confirmed 30795340 Problem Hyperthyroidi sm E05.90 confirmed 66015369 Problem GERD with esophagitis K21.0 confirmed 448569865 Problem Type 1 diabetes mellitus with diabetic autonomic (poly)neuropa thy E10.43 confirmed 753981441 Problem Type 1 diabetes mellitus with hypoglycemia and without coma E10.649 confirmed Problem Cardiomyopath y I42.9 confirmed 24824256 Problem 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 confirmed 629441537 Problem Type 1 diabetes mellitus with unspecified diabetic retinopathy without macular edema E10.319 confirmed 640128362 Problem Type 1 diabetes mellitus with ketoacidosis without coma E10.10 confirmed 543700402 Problem Elevated white blood cell count D72.829 confirmed 829045510 Problem Type 1 diabetes mellitus E10.9 confirmed 45449432 Problem Gastroparesis K31.84 confirmed 84866 5006 Problem Hypothyroidis m E03.9 confirmed 38512724 Problem Acute nonseasonal allergic rhinitis due to pollen J30.1 confirmed 68224465 Problem Gastroesophag eal reflux disease without esophagitis K21.9 confirmed 939364359 Problem Essential (primary) hypertension I10 confirmed 25927060 Problem Thyrotoxicosi s, unspecified without thyrotoxic crisis or storm E05.90 confirmed 23632230 Problem Type 1 diabetes E10.9 confirmed 944248502 Problem Gastroparesis due to DM E11.43 confirmed 666907619 ALLERGIES Allergen (clinical drug ingredient) Drug/Non Drug Allergy documented on EMR Reaction Allergy Type Onset Date Status penicillin V Penicillin V Potassium([facility] Code:[address]-79) rash Drug Allergy Active ENCOUNTERS from 1989 to 2023-05-29 Encounter Location Date Provider Diagnosis [facility] [address] [facility] [id number] [place] [address] Jun, YUMIKO DIEGO IMMUNIZATIONS Vaccine Route Administration Date Status tdap (history) Unknown Aug 11, 2006 Administered PRIVATE FLULAVAL QUAD 0.5ML (6 MO AND UP) 2019 IM Intramuscular Jul 10, 2020 Administered 1st Dose HRSA MODERNA, COVID -19, 0.5mL IM Intramuscular January 05, 2021 Administered 2nd Dose HRSA MODERNA, COVID -19, 0.5mL IM Intramuscular February 04, 2021 Administered poliovirus unspecified (history) Unknown April 07, 1994 Administered poliovirus unspecified (history) Unknown May 18, 1995 Administered influenza (history) Unknown Sep 29, 2019 Administ yuliya hib (history) Unknown January 06, 1994 Administered STATE FUNDED FLULAVAL QUAD 0 .5ML [...] USE* for 28 Active REASON FOR VISIT Medication refill request MEDICAL (GENERAL) HISTORY Type Description Date Medical [...] Name:YUMIKO DIEGO, 2023-08-21 02:40:00 PM, [address] [facility], [id number], [place], [address], MEDICATIONS ADMINISTERED Medication Instructions Date of Administration Dosag e SOLUMEDROL (UP TO 125 MG) Sep, 12 5 mg
[2023-08-27] MEDS ORDERED: METOCLOPRAMIDE INJ 10 MG/2 ML IVP ONE (22:30)
[2023-08-27 22:50] LABS: BACTERIA,URINE TRACE /HPF; BILIRUBIN,URINE NEGATIVE (NEGATIVE); CLARITY,URINE CLEAR; COLOR,URINE YELLOW; GLUCOSE, URINE (UA) 3+ (NEGATIVE); KETONES,URINE 2+ (NEGATIVE); LEUKOCYTE ESTERASE ,URINE NEGATIVE (NEGATIVE); NITRITE,URINE NEGATIVE (NEGATIVE); PROTEIN,URINE 1+ (NEGATIVE); WBC,URINE RARE /HPF
[2023-08-27] MEDS ORDERED: 1/2 NS IV SOLUTION 1000 ML 1,000 ML IV ONE (23:42)
[2023-08-27] MEDS ORDERED: POTASSIUM CL 10MEQ/50ML IVPB 100 ML IV ONE (23:42)
[2023-08-27] MEDS ORDERED: D5 1/2 NS 1,000 ML IV 1,000 ML IV ONE (23:42)
[2023-08-27] MEDS ORDERED: CATHETER FLUSH 10 ML SYR IVP PRN (23:45)
[2023-08-27] MEDS ORDERED: PROMETHAZINE INJ 25 MG/ML VIAL IVP PRN (23:45)
[2023-08-28] MEDS ORDERED: NS IV 1000 ML 1,000 ML IV SCH
[2023-08-28] MEDS ORDERED: NS IV 500 ML 500 ML IV PRN
[2023-08-28] MEDS ORDERED: METOCLOPRAMIDE INJ 10 MG/2 ML IVP SCH
[2023-08-28 00:33] LABS: CALCIUM 9.3 MG/DL (8.5-10.1)
[2023-08-28 00:37] LABS: CREATININE SERUM 1.31 MG/DL (0.60-1.30)
[2023-08-28] MEDS: D5 1/2 NS 1,000 ML IV 1,000 ML IV SCH ×6 (01:00→20:58)
[2023-08-28] MEDS: ONDANSETRON INJECTION 4 MG/2 ML (SDV) IV PRN ×2 (01:59→09:02)
[2023-08-28] MEDS: POTASSIUM CHLORIDE 20 MEQ TABLET PO SCH (02:01)
[2023-08-28] MEDS: POTASSIUM CL 10MEQ/50ML IVPB 50 ML IV SCH ×12 (02:01→22:47)
[2023-08-28] MEDS: MAGNESIUM 1 GM/100 ML IVPB 100 ML IV SCH (02:01)
[2023-08-28] MEDS: CATHETER FLUSH 10 ML SYR IVP SCH ×3 (02:01→22:05)
[2023-08-28 02:24] LABS: BASOPHILS % (AUTO) 0 % (0-10); EOSINOPHILS % (AUTO) 0 % (0-10); HEMATOCRIT 30 % (40-54); HEMOGLOBIN 10.4 g/dL (13.3-17.7); LYMPHOCYTES # (AUTO) 0.8 10^3/uL (1.0-4.0); LYMPHOCYTES % (AUTO) 8 % (12-44); MEAN CORPUSCULAR HEMOGLOBIN 26 pg (25-34); MEAN CORPUSCULAR HGB CONC 34 g/dL (32-36); MEAN CORPUSCULAR VOLUME 77 fL (80-99); MEAN PLATELET VOLUME 9.3 fL (9.0-12.2); MONOCYTES # (AUTO) 0.4 10^3/uL (0.0-1.0); MONOCYTES % (AUTO) 4 % (0-12); NEUTROPHILS # (AUTO) 9.2 10^3/uL (1.8-7.8); NEUTROPHILS % (AUTO) 88 % (42-75); PLATELET COUNT 280 10^3/uL (130-400); WHITE BLOOD COUNT 10.4 10^3/uL (4.3-11.0)
[2023-08-28 02:40] LABS: POTASSIUM 3.4 MMOL/L (3.6-5.0)
[2023-08-28 02:42] LABS: CALCIUM 9.3 MG/DL (8.5-10.1)
[2023-08-28 02:46] LABS: CREATININE SERUM 1.08 MG/DL (0.60-1.30)
[2023-08-28] MEDS: 1/2 NS IV SOLUTION 1000 ML 1,000 ML IV SCH ×6 (03:06→19:08)
[2023-08-28 04:39] LABS: BASOPHILS % (AUTO) 0 % (0-10); EOSINOPHILS % (AUTO) 0 % (0-10); HEMATOCRIT 30 % (40-54); HEMOGLOBIN 10.3 g/dL (13.3-17.7); LYMPHOCYTES # (AUTO) 0.9 10^3/uL (1.0-4.0); LYMPHOCYTES % (AUTO) 9 % (12-44); MEAN CORPUSCULAR HEMOGLOBIN 27 pg (25-34); MEAN CORPUSCULAR HGB CONC 35 g/dL (32-36); MEAN CORPUSCULAR VOLUME 77 fL (80-99); MEAN PLATELET VOLUME 9.7 fL (9.0-12.2); MONOCYTES # (AUTO) 0.4 10^3/uL (0.0-1.0); MONOCYTES % (AUTO) 4 % (0-12); NEUTROPHILS % (AUTO) 87 % (42-75); PLATELET COUNT 285 10^3/uL (130-400); WHITE BLOOD COUNT 10.4 10^3/uL (4.3-11.0)
[2023-08-28 05:05] LABS: ALBUMIN 3.8 GM/DL (3.2-4.5); BILIRUBIN,TOTAL 0.6 MG/DL (0.1-1.0); CREATININE SERUM 0.87 MG/DL (0.60-1.30); MAGNESIUM 1.8 MG/DL (1.6-2.4); POTASSIUM 3.5 MMOL/L (3.6-5.0); TOTAL PROTEIN 6.7 GM/DL (6.4-8.2)
[2023-08-28 05:24] LABS: PHOSPHORUS 0.7 MG/DL (2.3-4.7)
[2023-08-28 05:37] LABS: LYMPHOCYTES % (MANUAL) 16 %; MONOCYTES % (MANUAL) 5 %; NEUTROPHILS % (MANUAL) 79 %
[2023-08-28 05:38] LABS: ELLIPT/OVALOCYTES SLIGHT; MICROCYTOSIS SLIGHT
[2023-08-28 07:01] LABS: CALCIUM 8.9 MG/DL (8.5-10.1); CREATININE SERUM 0.8 MG/DL (0.60-1.30); POTASSIUM 3.9 MMOL/L (3.6-5.0)
[2023-08-28 08:30] LABS: POTASSIUM 3.6 MMOL/L (3.6-5.0)
[2023-08-28 08:31] LABS: CALCIUM 8.7 MG/DL (8.5-10.1)
[2023-08-28 08:36] LABS: CREATININE SERUM 0.87 MG/DL (0.60-1.30)
--- NOTE | 2023-08-28 09:53 | Tele-ICU Progress Note ---
Subjective Date Seen by a Provider: Aug 28, 2023 Time Seen by a Provider: 09:53 Subjective/Events-last exam (Tele-ICU Physician , consultation as per request of PCP Service provided via interactive audio and video telecommunications E-CARE system to a patient admitted to ICU bed in [facility]. Available chart/ vitals / labs / Images reviewed H&P is from ER notes Patient's information available about PMH, Shx, Fhx allergy reviewed inEMR. ROS as per chart and RN report Now in ICU, hemodynamically stable Video assessment done using teleICU camera, rest of exam as per RN Discussed with RN. Hospital course: (06/06) 32M Admitted for DKA, intractable vomiting/hematemesis. Positive occult blood stool. Chronic marajuana use. A/P DKA -Unclear precipitant, No suspicious for new infection *Insulin drip to stop soon - labs improved Gastroparesis tx Lines : per , (Central Line Necessity Reviewed) Carrillo: OG: Nutrition: npo Analgesia: Anxiety/ delirium Plans in collaboration with bedside consultants and IM MDs. Discussed with RN to reach out if any questions or concerns A total of 10 minutes of critical care time was devoted to this patient today, required to treat and/or prevent further deterioration of critical care condition ( as above ) . I am remotely monitoring this patient from another state. I am unable to do the bedside exam, and history/physical and pertinent information is taken from other notes in the computer and bedside staff. . Sepsis Event Evaluation Height, Weight, BMI Height: 5'11.00" Weight: 126lbs. 0.0oz. 57.813138vp; 17.78 BMI Method:Stated Focused Exam Lactate Level 08/27/23 00:06: Lactic Acid Level 4.87*H 08/27/23 21:50: Lactic Acid Level 3.91*H 08/28/23 02:18: Lactic Acid Level 1.99 Exam Exam Patient acknowledged, consented, and participated in this virtual visit which was conducted using real time audio/video Vital Signs Date Time Temp Pulse Resp B/P (MAP) Pulse Ox O2 Delivery O2 Flow Rate FiO2 08/28/23 08:07 37.1 08/28/23 07:00 99 10 150/86 (107) 99 Room Air 08/28/23 07:00 98 08/28/23 06:00 113 16 164/118 (124) 99 Room Air 08/28/23 05:00 101 11 163/107 (122) 100 Room Air 08/28/23 04:00 36.9 94 16 162/101 (121) 100 Room Air 08/28/23 03:15 99 Room Air 08/28/23 03:00 97 17 153/84 (107) 100 08/28/23 02:00 95 10 166/99 (121) 100 Room Air 08/28/23 01:00 97 16 158/88 (111) 100 Room Air 08/28/23 01:00 94 08/28/23 00:00 100 Room Air 08/27/23 23:31 100 Room Air 08/27/23 23:25 109 08/27/23 23:20 36.4 114 22 163/104 (123) 100 Room Air 08/27/23 23:19 112 22 145/96 97 Room Air 08/27/23 21:35 36.7 120 20 178/112 (134) 98 Room Air I & O 08/28/23 06:59 Intake Total 3100 ml Output Total 1000 ml Balance 2100 ml Height & Weight Height: 5'11.00" Weight: 126lbs. 0.0oz. 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
[2023-08-28] MEDS ORDERED: SCOPOLAMINE 1.5 MG PATCH TD ONE (11:00)
--- NOTE | 2023-08-28 11:26 | History & Physical ---
GARIMA PEARSON 08/28/23 1126: History of Present Illness History of Present Illness Reason for visit/HPI Maurice Nelson is a 33 year old male who presented himself to the ED on 08/27 with nonstop vomiting upon admission. Pt has a history of DKA and reported taking his insulin as prescribed. Positive assoc sx included weakness, fatigue, and abdominal discomfort. Pt denied vomiting any blood. Glc level was a 647 at admission. It has been progressively declining and was 157 at 0800H today, 08/28. Pt was seen today and reports feeling nauseous, but it is an improvement from yesterday. His last vomit was earlier this morning and denied seeing any blood. Denies any HURLEY, SOB, or abdominal pain. Pt has not been able to eat due to feeling nauseous. Date of Admission Aug 27, 2023 at 23:17 Date Seen by a Provider: Aug 28, 2023 Time Seen by a Provider: 09:15 I consulted on this patient on 08/28/23 11:22 Attending Physician [place] Admitting Physician Admitting Physician: Rayne Silverman MD Attending Physician: Lore José DO Consult Allergies and Home Medications Allergies Coded Allergies: Penicillins (Verified Allergy, Unknown, 05/23/06) penicillin G (Verified Allergy, Unknown, RASH, 08/28/23) penicillin V (Verified Allergy, Unknown, rash, 08/28/23) Patient Home Medication List Insulin Aspart (Novolog) 100 Unit/Ml Susp, UNIT SQ AC, (Reported) Entered as Reported by: YUMIKO SNOW on 04/14/23 1036 Last Action: Reviewed Insulin Determir (Levemir) 100 Unit/Ml Soln, 5 UNITS SQ BID, (Reported) Entered as Reported by: YUMIKO SNOW on 06/06/23 1027 Last Action: Reviewed Lisinopril (Lisinopril) 40 Mg Tablet, 40 MG PO DAILY, (Reported) Entered as Reported by: YUMIKO SNOW on 04/14/23 1036 Last Action: Reviewed Metoclopramide HCl (Metoclopramide HCl) 10 Mg Tablet, 10 MG PO ACHS, (Reported) Entered as Reported by: DANNIE PERDOMO on 01/11/21 0903 Last Action: Reviewed Pantoprazole Sodium (Pantoprazole Sodium) 40 Mg Tablet., 40 MG PO DAILY, (Reported) Entered as Reported by: DANNIE PERDOMO on 01/11/21 1658 Last Action: Reviewed Discontinued Medications Amlodipine Besylate (Amlodipine Besylate) 5 Mg Tablet, 5 MG PO DAILY Discontinued Reason: No Longer Taking Prescribed by: LORE JOSÉ on 06/09/23 6544 Last Action: Discontinued Past Sksprua-Duxexd-Jjirhs Hx Patient Social History Tobacco Use?: No Use of E-Cig and/or Vaping dev: Yes E-Cig or Vaping type used: Other Additional E-Cig or Vaping: Delta 10 per patient Substance use?: No Alcohol Use?: No Pt feels they are or have been: No Immunizations Up To Date Date of Influenza Vaccine: Jun 21, 2022 First/Initial COVID19 Vaccinat: 01/05/21 Second COVID19 Vaccination Pierre: 02/04/21 Tetanus Booster (TDap): Unknown Hepatitis A: No Hepatitis B: No PED Vaccines UTD: No Date of Pneumonia Vaccine: Jul 16, 2016 Seasonal Allergies Seasonal Allergies: No Current Status Advance Directives: No Communicates: Verbally Primary Language: Lao Preferred Spoken Language: Lao Is interpretation needed?: No Sensory deficits: Vision impairment Implanted or Applied Medical D: None Past Medical History Currently Using CPAP: No Currently Using BIPAP: No Cardiomyopathy, Hypertension Sexually Transmitted Disease: No HIV/AIDS: No Gastroesophageal Reflux Diabetes, Insulin dep Loss of Vision: Denies Hearing Impairment: Denies Did You Recieve Any Treatments: No Anxiety Blood Disorders: No Adverse Reaction/Blood Tranf: No PMHx: Type I Diabetes Anxiety Diabetic Retinopathy Thyrotoxicosis Pneumonia Cardiomyopathy Gastroparesis Family Medical History Cardiovascular disease 19 FATHER Hypertension 19 FATHER Heart Disease, Hypertension Review of Systems Constitutional: No fever; weakness EENTM: No hearing loss, No ear pain, No blurred vision, No double vision Respiratory: No cough, No short of breath Cardiovascular: No chest pain, No palpitations Gastrointestinal: No abdominal pain; loss of appetite; No melena; nausea, vomiting Psychiatric/Neurological: Denies Headache Physical Exam Vital Signs Vital Signs - First Documented 08/27/23 21:35 Temp 36.7 Pulse 120 Resp 20 B/P (MAP) 178/112 (134) Pulse Ox 98 O2 Delivery Room Air Capillary Refill : Less Than 3 Seconds Height, Weight, BMI Height: 5'11.00" Weight: 126lbs. 0.0oz. 57.755626mw; 17.78 BMI Method:Stated General Appearance: Mild Distress HEENT: PERRL/EOMI; No Photophobia, No Scleral Icterus (L), No Scleral Icterus (R) Neck: Non Tender Respiratory: Chest Non Tender, Lungs Clear, Normal Breath Sounds, No Accessory Muscle Use, No Respiratory Distress Cardiovascular: Regular Rate, Rhythm, No Edema, No Murmur, Normal Peripheral Pulses (2+ b/l radial and posterior tibialis) Gastrointestinal: Normal Bowel Sounds, Non Tender, Soft; No Guarding, No Rebound Extremity: Normal Capillary Refill, No Calf Tenderness Neurologic/Psychiatric: Alert, Oriented x3, Depressed Affect Assessment/Plan Assessment and Plan Assessment: DKA Plan: DKA -insulin at 3.5 units/hour -continue to monitor glc readings LORE JOSÉ DO 08/29/23 0507: History of Present Illness History of Present Illness Reason for visit/HPI CC: DKA HPI: This is a 33yoWM with type 1 DM who has recurrent DKA episodes who presents with recurrent DKA Allergies and Home Medications Allergies Coded Allergies: Penicillins (Verified Allergy, Unknown, 05/23/06) penicillin G (Verified Allergy, Unknown, RASH, 08/28/23) penicillin V (Verified Allergy, Unknown, rash, 08/28/23) Patient Home Medication List Home Medication List Reviewed: Yes Insulin Aspart (Novolog) 100 Unit/Ml Susp, UNIT SQ AC, (Reported) Entered as Reported by: YUMIKO SNOW on 04/14/23 1036 Last Action: Reviewed Insulin Determir (Levemir) 100 Unit/Ml Soln, 5 UNITS SQ BID, (Reported) Entered as Reported by: YUMIKO SNOW on 06/06/23 1027 Last Action: Reviewed Lisinopril (Lisinopril) 40 Mg Tablet, 40 MG PO DAILY, (Reported) Entered as Reported by: YUMIKO SNOW on 04/14/23 1036 Last Action: Reviewed Metoclopramide HCl (Metoclopramide HCl) 10 Mg Tablet, 10 MG PO ACHS, (Reported) Entered as Reported by: DANNIE PERDOMO on 01/11/21 0904 Last Action: Reviewed Pantoprazole Sodium (Pantoprazole Sodium) 40 Mg Tablet.dr, 40 MG PO DAILY, (Reported) Entered as Reported by: DANNIE PERDOMO on 01/11/21 0952 Last Action: Reviewed Discontinued Medications Amlodipine Besylate (Amlodipine Besylate) 5 Mg Tablet, 5 MG PO DAILY Discontinued Reason: No Longer Taking Prescribed by: LORE JOSÉ on 06/09/23 1234 Last Action: Discontinued Past Yofjcaq-Oofaov-Bruwqi Hx Patient Social History Marrital Status: cohabiting Employed/Student: unemployed Family Medical History Cardiovascular disease 19 FATHER Hypertension 19 FATHER Review of Systems Constitutional: see HPI Physical Exam General Appearance: WD/WN, Anxious, Chronically ill, Mild Distress Respiratory: Lungs Clear, Normal Breath Sounds Cardiovascular: Regular Rate, Rhythm Neurologic/Psychiatric: Alert, Oriented x3 Assessment/Plan Assessment and Plan DKA Insulin drip Admission Diagnosis Admission Status: Inpatient Order (span 2 midnights) Reason for Inpatient Admission: dka Supervisory-Addendum Brief Verification & Attestation Participated in pt care: history, MDM, physical Personally performed: exam, history, MDM, supervision of care Care discussed with: Medical Student Procedures: n/a Results interpretation: Verified all documentation Verification and Attestation of Medical Student E/M Service A medical student performed and documented this service in my presence. I reviewed and verified all information documented by the medical student and made modifications to such information, when appropriate. I personally performed the physical exam and medical decision making. Lore José, Aug 29, 2023,05:07 GARIMA PEARSON Aug 28, 2023 11:26 LORE JOSÉ DO Aug 29, 2023 05:07
[2023-08-28] MEDS: METOCLOPRAMIDE INJ 10 MG/2 ML IVP SCH ×2 (12:03→18:04)
[2023-08-29] MEDS: 1/2 NS IV SOLUTION 1000 ML 1,000 ML IV SCH ×6 (00:05→21:02)
[2023-08-29] MEDS: METOCLOPRAMIDE INJ 10 MG/2 ML IVP SCH ×5 (00:07→23:01)
[2023-08-29] MEDS: POTASSIUM CL 10MEQ/50ML IVPB 50 ML IV SCH ×9 (00:59→22:49)
[2023-08-29] MEDS: D5 1/2 NS 1,000 ML IV 1,000 ML IV SCH ×5 (01:00→21:16)
[2023-08-29 04:27] LABS: BASOPHILS % (AUTO) 0 % (0-10); EOSINOPHILS # (AUTO) 0.1 10^3/uL (0.0-0.3); EOSINOPHILS % (AUTO) 1 % (0-10); HEMATOCRIT 27 % (40-54); HEMOGLOBIN 9.1 g/dL (13.3-17.7); LYMPHOCYTES # (AUTO) 1.9 10^3/uL (1.0-4.0); LYMPHOCYTES % (AUTO) 19 % (12-44); MEAN CORPUSCULAR HEMOGLOBIN 26 pg (25-34); MEAN CORPUSCULAR HGB CONC 33 g/dL (32-36); MEAN CORPUSCULAR VOLUME 79 fL (80-99); MEAN PLATELET VOLUME 9.2 fL (9.0-12.2); MONOCYTES # (AUTO) 0.7 10^3/uL (0.0-1.0); MONOCYTES % (AUTO) 7 % (0-12); NEUTROPHILS % (AUTO) 72 % (42-75); PLATELET COUNT 239 10^3/uL (130-400); WHITE BLOOD COUNT 9.7 10^3/uL (4.3-11.0)
[2023-08-29] MEDS: POTASSIUM CHLORIDE 20 MEQ TABLET PO SCH (04:31)
[2023-08-29] MEDS: CATHETER FLUSH 10 ML SYR IVP SCH ×3 (04:31→21:02)
[2023-08-29] MEDS: MAGNESIUM 1 GM/100 ML IVPB 100 ML IV SCH ×7 (04:31→22:06)
[2023-08-29 04:42] LABS: ALBUMIN 2.9 GM/DL (3.2-4.5); POTASSIUM 3.7 MMOL/L (3.6-5.0)
[2023-08-29 04:44] LABS: CALCIUM 7.6 MG/DL (8.5-10.1)
[2023-08-29 04:45] LABS: TOTAL PROTEIN 5.2 GM/DL (6.4-8.2)
[2023-08-29 04:47] LABS: BILIRUBIN,TOTAL 0.6 MG/DL (0.1-1.0)
[2023-08-29 04:48] LABS: PHOSPHORUS 2.5 MG/DL (2.3-4.7)
[2023-08-29 04:49] LABS: CREATININE SERUM 0.82 MG/DL (0.60-1.30)
[2023-08-29 04:51] LABS: MAGNESIUM 1.6 MG/DL (1.6-2.4)
[2023-08-29] MEDS: ONDANSETRON INJECTION 4 MG/2 ML (SDV) IV PRN (08:21)
[2023-08-29] MEDS: PROMETHAZINE INJ 25 MG/ML VIAL IM PRN (09:36)
--- NOTE | 2023-08-29 09:54 | Progress Note ---
Subjective Date Seen by a Provider: Aug 29, 2023 Subjective/Events-last exam Pt was vomiting during exam. He had been vomiting "all morning". The nurse states that their was a lot of volume initially that was characterized as green. The vomiting volume has been decreasing. Last vomit episode before this morning was yesterday morning. Pt is still nauseous. He ordered breakfast but was unable to eat due to the vomiting. Denies any abdominal pain or HURLEY. Review of Systems General: No Chills, No Night Sweats HEENT: No Head Aches, No Visual Changes Pulmonary: No Cough Cardiovascular: No: Chest Pain Gastrointestinal: Nausea, Vomiting; No: Abdominal Pain Neurological: No: Incoordination, Change in speech, Confusion Focused Exam Lactate Level 08/27/23 00:06: Lactic Acid Level 4.87*H 08/27/23 21:50: Lactic Acid Level 3.91*H 08/28/23 02:18: Lactic Acid Level 1.99 Objective Exam Last Set of Vital Signs Vital Signs Date Time Temp Pulse Resp B/P (MAP) Pulse Ox O2 Delivery O2 Flow Rate FiO2 08/29/23 09:00 86 178/102 (127) 100 Room Air 08/29/23 08:19 36.9 08/29/23 07:00 19 Capillary Refill : Less Than 3 Seconds I&O Intake and Output 08/28/23 23:59 Intake Total 5740 ml Output Total 4900 ml Balance 840 ml Intake Oral 240 ml IV Total 5500 ml Output Urine Total 4900 ml General: Alert, Oriented X3, Mild Distress HEENT: PERRLA, EOMI Neck: No JVD Lungs: Clear to Auscultation, Normal Air Movement Heart: Regular Rate, No Murmurs Abdomen: Normal Bowel Sounds, Soft, No Tenderness Extremities: No Clubbing, No Cyanosis Neuro: Normal Speech, Strength at 5/5 X4 Ext, Sensation Intact, Cranial Nerves 3-12 NL Psych/Mental Status: Mental Status NL Results Lab Laboratory Tests 08/28/23 09:58: Glucometer 151H 08/28/23 11:16: Glucometer 146H 08/28/23 12:07: Glucometer 154H 08/28/23 13:05: Glucometer 129H 08/28/23 14:01: Glucometer 117H 08/28/23 15:05: Glucometer 99 08/28/23 16:33: Glucometer 109 08/28/23 17:10: Glucometer 110 08/28/23 18:07: Glucometer 160H 08/28/23 19:01: Glucometer 174H 08/28/23 19:59: Glucometer 171H 08/28/23 20:59: Glucometer 156H 08/28/23 21:58: Glucometer 147H 08/28/23 23:00: Glucometer 121H 08/29/23 00:03: Glucometer 135H 08/29/23 00:58: Glucometer 121H 08/29/23 02:00: Glucometer 137H 08/29/23 02:55: Glucometer 164H 08/29/23 04:11: Glucometer 153H 08/29/23 04:15: White Blood Count 9.7, Red Blood Count 3.45L, Hemoglobin 9.1L, Hematocrit 27L, Mean Corpuscular Volume 79L, Mean Corpuscular Hemoglobin 26, Mean Corpuscular Hemoglobin Concent 33, Red Cell Distribution Width 13.9, Platelet Count 239, Mean Platelet Volume 9.2, Immature Granulocyte % (Auto) 0, Neutrophils (%) (Auto) 72, Lymphocytes (%) (Auto) 19, Monocytes (%) (Auto) 7, Eosinophils (%) (Auto) 1, Basophils (%) (Auto) 0, Neutrophils # (Auto) 7.0, Lymphocytes # (Auto) 1.9, Monocytes # (Auto) 0.7, Eosinophils # (Auto) 0.1, Basophils # (Auto) 0.0, Immature Granulocyte # (Auto) 0.0, Sodium Level 136, Potassium Level 3.7, Chloride Level 111H, Carbon Dioxide Level 20L, Anion Gap 5, Blood Urea Nitrogen 3L, Creatinine 0.82, Estimat Glomerular Filtration Rate 118, BUN/Creatinine Ratio 4, Glucose Level 166H, Calcium Level 7.6L, Corrected Calcium 8.5, Phosphorus Level 2.5, Magnesium Level 1.6, Total Bilirubin 0.6, Aspartate Amino Transf (AST/SGOT) 14, Alanine Aminotransferase (ALT/SGPT) 11, Alkaline Phosphatase 63, Total Protein 5.2L, Albumin 2.9L, Beta-Hydroxybutyrate (Chem panel) 0.03 08/29/23 05:02: Glucometer 148H 08/29/23 06:01: Glucometer 136H 08/29/23 07:04: Glucometer 128H 08/29/23 08:24: Glucometer 114H 08/29/23 09:12: Glucometer 167H Microbiology 08/27/23 MRSA Screen - Final, Complete MRSA not isolated Assessment/Plan Assessment/Plan Assess & Plan/Chief Complaint Assessment: DKA Plan: DKA -pt is to remain on the insulin drip until he can eat food on his own. Clinical Quality Measures Admission Status Admission Dx Assessment: DKA Plan: DKA -insulin at 3.5 units/hour -continue to monitor glc readings GARIMA PEARSON Aug 29, 2023 09:53
[2023-08-29] MEDS ORDERED: hydrALAZINE INJECTION 20 MG/ML VIAL IV PRN (11:00)
--- NOTE | 2023-08-29 11:09 | Tele-ICU Progress Note ---
Subjective Date Seen by a Provider: Aug 29, 2023 Time Seen by a Provider: 10:15 Subjective/Events-last exam (Tele-ICU Physician , Progress Note ) Service provided via interactive audio and video telecommunications E-CARE system to a patient admitted to ICU bed in [facility]. Patient is seen today due to persistent need of ICU care Available chart/ vitals / labs / Images reviewed Video assessment done using teleICU camera, rest of exam as per RN He is a 33-year-old male with past medical history of type 1 diabetes mellitus presented to the emergency room with a complaint of nonstop vomitings and further evaluation led to the finding of diabetic ketoacidosis with acute kidney injury. He is being treated with IV insulin hydration with IV fluids along with Zofran, Reglan and Compazine. Yesterday he had control of his blood sugars as well as to vomitings. However this a.m. he ordered a breakfast tray but he could not eat as he is started vomiting again mostly green bile looking fluid. Denies any chest pain or short of breath. The anion gap improved to 5 but his blood pressure is going up. BUN/creatinine improving. Impression 1. Diabetic ketoacidosis clinically improving but has persistent nausea and vomiting. 2. Acute kidney injury improving. Recommendations 1. Continue IV hydration 2. IV Reglan and Compazine as needed 3. Add hydralazine for systolic blood pressure over 160. 4. Continue monitoring blood sugars and if needed continue insulin drip. 5. DVT prophylaxis. Coordination of care with primary care physician and consultants Discussed with the case with bedside [facility]. I am remotely monitoring this patient from Tele icu station in [place]. I am unable to do the bedside exam, and history/physical and pertinent information is taken from other notes in the computer and bedside staff. Certain portions of this document may have been dictated utilizing voice recognition technology such as [employer]. Inherent to this technology, typographical and grammatical errors may exist. As much as I am diligent to identify and correct to these mistakes, some errors may remain in the document. Critical care time devoted to this patient today is approximately is-20 minutes.- Sepsis Event Evaluation Height, Weight, BMI Height: 5'11.00" Weight: 126lbs. 0.0oz. 57.868749wl; 19.13 BMI Method:Stated Focused Exam Lactate Level 08/27/23 00:06: Lactic Acid Level 4.87*H 08/27/23 21:50: Lactic Acid Level 3.91*H 08/28/23 02:18: Lactic Acid Level 1.99 Exam Exam Patient acknowledged, consented, and participated in this virtual visit which wa s conducted using real time audio/video Vital Signs Date Time Temp Pulse Resp B/P (MAP) Pulse Ox O2 Delivery O2 Flow Rate FiO2 08/29/23 09:00 86 178/102 (127) 100 Room Air 08/29/23 08:19 36.9 08/29/23 08:00 105 182/115 (137) 100 Room Air 08/29/23 08:00 99 Room Air 08/29/23 07:00 85 19 118/88 (98) 99 Room Air 08/29/23 07:00 85 08/29/23 06:00 79 18 125/80 (95) 99 Room Air 08/29/23 05:00 37.0 80 16 146/93 (110) 99 Room Air 08/29/23 04:00 81 143/93 (108) 99 Room Air 08/29/23 03:00 84 13 127/72 (90) 99 Room Air 08/29/23 03:00 99 Room Air 08/29/23 02:00 82 17 115/69 (84) 99 Room Air 08/29/23 01:00 83 08/29/23 01:00 81 14 108/68 (81) 99 Room Air 08/29/23 00:00 36.7 96 14 113/78 (90) 98 Room Air 08/28/23 23:00 100 Room Air 08/28/23 23:00 82 12 124/84 (97) 99 Room Air 08/28/23 22:00 85 17 122/84 (97) 99 Room Air 08/28/23 21:00 81 18 124/78 (93) 98 Room Air 08/28/23 20:00 84 19 119/80 (93) 98 Room Air 08/28/23 19:05 99 Room Air 08/28/23 19:00 37.0 97 16 120/83 (95) 99 Room Air 08/28/23 19:00 84 08/28/23 18:00 87 18 131/85 (100) 98 Room Air 08/28/23 17:00 83 18 122/81 (95) 98 Room Air 08/28/23 16:00 99 Room Air 08/28/23 16:00 82 18 116/77 (90) 97 Room Air 08/28/23 15:00 80 17 127/82 (97) 98 Room Air 08/28/23 14:00 87 22 123/80 (94) 98 Room Air 08/28/23 13:00 89 36 124/71 (88) 98 Room Air 08/28/23 12:13 92 08/28/23 12:00 100 Room Air 08/28/23 12:00 90 30 131/81 (98) 98 Room Air I & O 08/29/23 06:59 Intake Total 5790 ml Output Total 5400 ml Balance 390 ml Height & Weight Height: 5'11.00" Weight: 126lbs. 0.0oz. 57.030649tx; 19.13 BMI Method:Stated General Appearance: WD/WN, Anxious, Chronically ill, Mild Distress HEENT: PERRL/EOMI; No Photophobia, No Scleral Icterus (L), No Scleral Icterus (R) Neck: Non Tender Respiratory: Lungs Clear, Normal Breath Sounds Cardiovascular: Regular Rate, Rhythm Capillary Refill: Less Than 3 Seconds Extremity: Normal Capillary Refill, No Calf Tenderness Neurologic/Psychiatric: Alert, Oriented x3 Skin: Normal Color, Warm/Dry Results Lab Laboratory Tests 08/27/23 21:40 08/28/23 00:06 08/28/23 02:11 08/28/23 03:51 08/28/23 06:32 08/28/23 08:03 08/29/23 04:15 Assessment/Plan Assessment/Plan as above Critical Care: Critically Ill Patient Time spent with patient (mins): 20 ALLYN WALTON MD Aug 29, 2023 11:09
--- NOTE | 2023-08-29 12:15 | Progress Note - Hospitalist ---
GARIMA PEARSON 08/29/23 1215: Subjective HPI/CC On Admission Date Seen by Provider: Aug 29, 2023 Time Seen by Provider: 11:10 Nauseous and vomiting due to DKA Subjective/Events-last exam Pt was vomiting during exam. He had been vomiting "all morning". The nurse states that their was a lot of volume initially that was characterized as green. The vomiting volume has been decreasing. Last vomit episode before this morning was yesterday morning. Pt is still nauseous. He ordered breakfast but was unable to eat due to the vomiting. Denies any abdominal pain or HURLEY. Review of Systems General: No Chills, No Night Sweats HEENT: No Head Aches, No Visual Changes, No Eye Pain, No Ear Pain Pulmonary: No Cough Cardiovascular: No: Chest Pain Gastrointestinal: Nausea, Vomiting; No: Abdominal Pain Neurological: No: Numbness, Change in speech, Confusion Focused Exam Lactate Level 08/27/23 00:06: Lactic Acid Level 4.87*H 08/27/23 21:50: Lactic Acid Level 3.91*H 08/28/23 02:18: Lactic Acid Level 1.99 Objective Exam Vital Signs Vital Signs Date Time Temp Pulse Resp B/P (MAP) Pulse Ox O2 Delivery O2 Flow Rate FiO2 08/29/23 11:00 93 12 170/106 (127) 99 Room Air 08/29/23 08:19 36.9 Capillary Refill : Less Than 3 Seconds General Appearance: Mild Distress HEENT: PERRL/EOMI; No Photophobia, No Scleral Icterus (L), No Scleral Icterus (R) Neck: Normal Inspection, Non Tender Respiratory: Chest Non Tender, Lungs Clear, Normal Breath Sounds, No Accessory Muscle Use, No Respiratory Distress Cardiovascular: Regular Rate, Rhythm, No Gallop, No JVD, No Murmur, Normal Peripheral Pulses (2+ b/l radial and posterior tibialis) Gastrointestinal: Normal Bowel Sounds, No Organomegaly, No Pulsatile Mass, Non Tender, Soft Extremity: Normal Capillary Refill Neurologic/Psychiatric: Alert, Oriented x3, 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 Assessment/Plan Assessment and Plan Assess & Plan/Chief Complaint Assessment: DKA High Blood Pressure Plan: DKA -insulin drip until PO High Blood Pressure -start pt on IV hydralazine 10mg q4hr scheduled Clinical Quality Measures Admission Status Admission Dx Assessment: DKA Plan: DKA -insulin at 3.5 units/hour -continue to monitor glc readings LORE JOSÉ DO 08/29/23 2010: Subjective Subjective/Events-last exam Still vomiting Insulin drip remains Assessment/Plan Assessment and Plan Assess & Plan/Chief Complaint Insulin drip Antiemetics Supervisory-Addendum Brief Verification & Attestation Participated in pt care: history, MDM, physical Personally performed: exam, history, MDM, supervision of care Care discussed with: Medical Student Procedures: n/a Results interpretation: Verified all documentation Verification and Attestation of Medical Student E/M Service A medical student performed and documented this service in my presence. I reviewed and verified all information documented by the medical student and made modifications to such information, when appropriate. I personally performed the physical exam and medical decision making. Lore José Aug 29, 2023,20:09 GARIMA PEARSON Aug 29, 2023 12:15 LORE JOSÉ DO Aug 29, 2023 20:10
[2023-08-29] MEDS: ENALAPRILAT INJ 2.5 MG/2 ML VIAL IV SCH ×3 (12:35→23:01)
[2023-08-29] MEDS: hydrALAZINE INJECTION 20 MG/ML VIAL IV SCH ×4 (12:45→23:01)
[2023-08-29] MEDS: meTOprolol INJECTION 5 MG/5 ML VIAL IV PRN (14:56)
[2023-08-29 16:13] LABS: POTASSIUM 3.6 MMOL/L (3.6-5.0)
[2023-08-29 16:14] LABS: CALCIUM 8.3 MG/DL (8.5-10.1)
[2023-08-29 16:18] LABS: CREATININE SERUM 0.82 MG/DL (0.60-1.30); PHOSPHORUS 1.2 MG/DL (2.3-4.7)
[2023-08-29 16:21] LABS: MAGNESIUM 1.5 MG/DL (1.6-2.4)
[2023-08-29] MEDS: CEFEPIME INJECTION 1,000 MG in NS (IVPB) 50 ML 50 ML IV SCH ×2 (16:40→22:49)
[2023-08-29] MEDS ORDERED: SODIUM PHOSPHATE INJ 30 MM in NS (IVPB) 250 ML 250 ML INJ ONE (16:45)
[2023-08-29] MEDS ORDERED: ACETAMINOPHEN 325 MG TABLET ONE (19:56)
[2023-08-29] MEDS ORDERED: ACETAMINOPHEN 325 MG TABLET PO PRN (20:00)
[2023-08-30] MEDS: POTASSIUM CL 10MEQ/50ML IVPB 50 ML IV SCH ×5 (01:02→09:16)
[2023-08-30] MEDS: hydrALAZINE INJECTION 20 MG/ML VIAL IV SCH ×6 (03:09→23:55)
[2023-08-30] MEDS: CEFEPIME INJECTION 1,000 MG in NS (IVPB) 50 ML 50 ML IV SCH ×4 (04:00→21:42)
[2023-08-30 04:09] LABS: BASOPHILS % (AUTO) 0 % (0-10); EOSINOPHILS # (AUTO) 0.1 10^3/uL (0.0-0.3); EOSINOPHILS % (AUTO) 1 % (0-10); HEMATOCRIT 31 % (40-54); HEMOGLOBIN 10.3 g/dL (13.3-17.7); LYMPHOCYTES # (AUTO) 2.5 10^3/uL (1.0-4.0); LYMPHOCYTES % (AUTO) 25 % (12-44); MEAN CORPUSCULAR HEMOGLOBIN 27 pg (25-34); MEAN CORPUSCULAR HGB CONC 34 g/dL (32-36); MEAN CORPUSCULAR VOLUME 79 fL (80-99); MEAN PLATELET VOLUME 9.3 fL (9.0-12.2); MONOCYTES # (AUTO) 0.9 10^3/uL (0.0-1.0); MONOCYTES % (AUTO) 9 % (0-12); NEUTROPHILS # (AUTO) 6.7 10^3/uL (1.8-7.8); NEUTROPHILS % (AUTO) 65 % (42-75); PLATELET COUNT 301 10^3/uL (130-400); WHITE BLOOD COUNT 10.2 10^3/uL (4.3-11.0)
[2023-08-30] MEDS: 1/2 NS IV SOLUTION 1000 ML 1,000 ML IV SCH (04:25)
[2023-08-30] MEDS: MAGNESIUM 1 GM/100 ML IVPB 100 ML IV SCH (04:26)
[2023-08-30] MEDS: POTASSIUM CHLORIDE 20 MEQ TABLET PO SCH (04:26)
[2023-08-30] MEDS: CATHETER FLUSH 10 ML SYR IVP SCH ×3 (04:26→20:01)
[2023-08-30 04:32] LABS: POTASSIUM 3.5 MMOL/L (3.6-5.0)
[2023-08-30 04:34] LABS: CALCIUM 7.6 MG/DL (8.5-10.1)
[2023-08-30 04:35] LABS: TOTAL PROTEIN 5.5 GM/DL (6.4-8.2)
[2023-08-30 04:37] LABS: BILIRUBIN,TOTAL 0.6 MG/DL (0.1-1.0)
[2023-08-30 04:38] LABS: PHOSPHORUS 4.4 MG/DL (2.3-4.7)
[2023-08-30 04:39] LABS: CREATININE SERUM 0.85 MG/DL (0.60-1.30)
[2023-08-30 04:41] LABS: MAGNESIUM 3.1 MG/DL (1.6-2.4)
[2023-08-30] MEDS: ENALAPRILAT INJ 2.5 MG/2 ML VIAL IV SCH ×4 (04:51→23:55)
[2023-08-30] MEDS: D5 1/2 NS 1,000 ML IV 1,000 ML IV SCH (05:08)
[2023-08-30] MEDS: METOCLOPRAMIDE INJ 10 MG/2 ML IVP SCH ×4 (06:06→23:55)
[2023-08-30] MEDS ORDERED: POTASSIUM CHLORIDE 20 MEQ TABLET PO NR (07:00)
--- NOTE | 2023-08-30 09:34 | Progress Note - Hospitalist ---
GARIMA PEARSON 08/30/23 0934: Subjective HPI/CC On Admission Date Seen by Provider: Aug 30, 2023 Nauseous and vomiting due to DKA Subjective/Events-last exam Pt ate his breakfast this morning. That was his first meal since admission. Pt reports no vomiting today. Nausea is improving after breakfast. Review of Systems General: No Chills, No Fatigue, No Malaise HEENT: No Head Aches, No Visual Changes, No Eye Pain, No Ear Pain Pulmonary: No Cough Cardiovascular: No: Chest Pain, Palpitations Gastrointestinal: No: Vomiting, Abdominal Pain Neurological: No: Weakness, Numbness, Incoordination, Change in speech, Confusion Focused Exam Lactate Level 08/27/23 21:50: Lactic Acid Level 3.91*H 08/28/23 02:18: Lactic Acid Level 1.99 Objective Exam Vital Signs Vital Signs Date Time Temp Pulse Resp B/P (MAP) Pulse Ox O2 Delivery O2 Flow Rate FiO2 08/30/23 12:44 37.1 08/30/23 09:00 100 22 98 Room Air Capillary Refill : Less Than 3 Seconds General Appearance: No Apparent Distress, WD/WN HEENT: PERRL/EOMI; No Photophobia, No Scleral Icterus (L), No Scleral Icterus (R) Neck: Normal Inspection, Non Tender; No JVD Respiratory: Chest Non Tender, Lungs Clear, Normal Breath Sounds, No Accessory Muscle Use, No Respiratory Distress Cardiovascular: Regular Rate, Rhythm, No JVD, No Murmur, Normal Peripheral Pulses Gastrointestinal: Normal Bowel Sounds, No Pulsatile Mass, Non Tender, Soft Extremity: Normal Capillary Refill, No Calf Tenderness Neurologic/Psychiatric: Alert, Oriented x3, No Motor/Sensory Deficits, Normal Mood/Affect, 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 Assessment/Plan Assessment and Plan Assess & Plan/Chief Complaint Assessment: DKA High Blood Pressure Plan: DKA -continue insulin drip until pt is stable after meal -plan is to transfer pt to 4th floor to recover -explained to the pt that I want him walking and moving around once in 4th floor High Blood Pressure -continue IV hydralazine 10mg q4hr scheduled Clinical Quality Measures Admission Status Admission Dx Assessment: DKA Plan: DKA -insulin at 3.5 units/hour -continue to monitor glc readings LORE JOSÉ DO 08/30/23 1934: Subjective HPI/CC On Admission Time Seen by Provider: 11:00 Subjective/Events-last exam Patient doing much better Less nausea and vomiting We will move to fourth floor Objective Exam General Appearance: No Apparent Distress, WD/WN, Chronically ill Assessment/Plan Assessment and Plan Assess & Plan/Chief Complaint Moved to fourth floor Supervisory-Addendum Brief Verification & Attestation Participated in pt care: history, MDM, physical Personally performed: exam, history, MDM, supervision of care Care discussed with: Medical Student Procedures: n/a Results interpretation: Verified all documentation Verification and Attestation of Medical Student E/M Service A medical student performed and documented this service in my presence. I reviewed and verified all information documented by the medical student and made modifications to such information, when appropriate. I personally performed the physical exam and medical decision making. Lore José Aug 30, 2023,19:34 GARIMA PEARSON Aug 30, 2023 09:34 LORE JOSÉ DO Aug 30, 2023 19:34
--- NOTE | 2023-08-30 09:36 | Tele-ICU Progress Note ---
Subjective Date Seen by a Provider: Aug 30, 2023 Time Seen by a Provider: 09:36 Subjective/Events-last exam (Tele-ICU Physician , Progress Note ) Service provided via interactive audio and video telecommunications E-CARE system to a patient admitted to ICU bed in [facility]. Patient is seen today due to persistent need of ICU care Available chart/ vitals / labs / Images reviewed Video assessment done using teleICU camera, rest of exam as per RN Discussed with RN Events overnight : fever febrile last nigh hemodynamically stable Respiratory - ra I/O =13L positive Drips: Pressors- no Hospital course: (06/06) 32M Admitted for DKA, intractable vomiting/hematemesis. Positive occult blood stool. Chronic marajuana use. A/P DKA -Unclear precipitant, No suspicious for new infection *Insulin drip to stop soon - labs improved -IVF 125h Gastroparesis tx -IV Reglan and Compazine as needed febrile last nigh - s/p cx blood 08/29 - pending - cefepime 08/29 Lines : per , (Central Line Necessity Reviewed) Carrillo: void OG: Nutrition: po Analgesia: Anxiety/ delirium Plans in collaboration with bedside consultants and IM MDs. Discussed with RN to reach out if any questions or concerns A total of 15 minutes of critical care time was devoted to this patient today, required to treat and/or prevent further deterioration of critical care condition ( as above ) . I am remotely monitoring this patient from another state. I am unable to do the bedside exam, and history/physical and pertinent information is taken from other notes in the computer and bedside staff. . Sepsis Event Evaluation Height, Weight, BMI Height: 5'11.00" Weight: 126lbs. 0.0oz. 57.409197ql; 19.07 BMI Method:Stated Focused Exam Lactate Level 08/27/23 21:50: Lactic Acid Level 3.91*H 08/28/23 02:18: Lactic Acid Level 1.99 Exam Exam Patient acknowledged, consented, and participated in this virtual visit which was conducted using real time audio/video Vital Signs Date Time Temp Pulse Resp B/P (MAP) Pulse Ox O2 Delivery O2 Flow Rate FiO2 08/30/23 08:00 99 Room Air 08/30/23 07:00 92 08/30/23 06:00 87 10 121/88 (99) 98 Room Air 08/30/23 05:00 85 12 124/82 (95) 98 Room Air 08/30/23 04:00 84 19 122/82 (94) 98 Room Air 08/30/23 03:59 37.2 87 16 99 Room Air 08/30/23 03:55 99 Room Air 08/30/23 03:00 89 22 109/71 (86) 98 Room Air 08/30/23 02:00 37.0 90 16 112/74 (87) 98 Room Air 08/30/23 01:00 92 08/30/23 01:00 89 18 118/78 (91) 98 Room Air 08/30/23 00:00 90 13 111/69 (83) 98 Room Air 08/29/23 23:00 92 16 116/71 (86) 98 Room Air 08/29/23 23:00 98 Room Air 08/29/23 22:55 37.8 90 18 99 Room Air 08/29/23 22:00 37.6 93 12 113/74 (87) 98 Room Air 08/29/23 21:00 96 9 115/73 (86) 98 Room Air 08/29/23 20:57 38.0 08/29/23 20:46 37.9 08/29/23 20:00 108 22 123/75 (91) 98 08/29/23 19:59 38.3 08/29/23 19:20 99 Room Air 08/29/23 19:15 38.3 110 22 125/79 (94) 98 Room Air 08/29/23 19:00 117 08/29/23 18:00 108 101/51 (68) 98 08/29/23 17:00 117 26 161/90 (113) 98 Room Air 08/29/23 16:11 38.5 08/29/23 16:00 102 155/101 (119) 98 Room Air 08/29/23 16:00 98 Room Air 08/29/23 15:00 110 163/95 (117) 98 Room Air 08/29/23 14:00 130 169/99 (122) 98 Room Air 08/29/23 13:00 112 08/29/23 13:00 112 162/103 (122) 98 Room Air 08/29/23 12:00 100 Room Air 08/29/23 12:00 98 172/103 (126) 98 Room Air 08/29/23 11:00 93 12 170/106 (127) 99 Room Air 08/29/23 10:00 97 23 183/113 (136) 99 Room Air I & O 08/30/23 06:59 Intake Total 5960 ml Output Total 5125 ml Balance 835 ml Height & Weight Height: 5'11.00" Weight: 126lbs. 0.0oz. 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
[2023-08-30] MEDS ORDERED: inSUlin DETERMIR 1 UNIT/0.01 ML (CHARGE PER UNIT) SQ ONE (11:45)
[2023-08-30 16:11] VITALS: BP 135/93
[2023-08-30] MEDS: inSUlin ASPART 1 UNIT/0.01 ML (PER UNIT) SC SCH ×2 (16:21→20:01)
[2023-08-30] MEDS: ENOXAPARIN 40 MG/0.4 ML SYRINGE SC SCH (16:39)
[2023-08-30 19:01] VITALS: BP 144/69
[2023-08-30] MEDS ORDERED: inSUlin DETERMIR 1 UNIT/0.01 ML (CHARGE PER UNIT) SQ SCH (21:00)
[2023-08-30 23:42] VITALS: BP_SYST 147; BP_SYST 163; BP_DIAS 77; BP_DIAS 81
[2023-08-31 03:01] VITALS: BP 121/67
[2023-08-31] MEDS: hydrALAZINE INJECTION 20 MG/ML VIAL IV SCH ×5 (04:02→19:55)
[2023-08-31] MEDS: CEFEPIME INJECTION 1,000 MG in NS (IVPB) 50 ML 50 ML IV SCH ×2 (04:03→10:46)
[2023-08-31] MEDS: inSUlin ASPART 1 UNIT/0.01 ML (PER UNIT) SC SCH ×5 (05:01→21:04)
[2023-08-31] MEDS: ENALAPRILAT INJ 2.5 MG/2 ML VIAL IV SCH ×3 (05:01→18:42)
[2023-08-31 05:37] LABS: BASOPHILS # (AUTO) 0.1 10^3/uL (0.0-0.1); BASOPHILS % (AUTO) 1 % (0-10); EOSINOPHILS # (AUTO) 0.2 10^3/uL (0.0-0.3); EOSINOPHILS % (AUTO) 2 % (0-10); HEMATOCRIT 34 % (40-54); HEMOGLOBIN 11.7 g/dL (13.3-17.7); LYMPHOCYTES # (AUTO) 1.7 10^3/uL (1.0-4.0); LYMPHOCYTES % (AUTO) 17 % (12-44); MEAN CORPUSCULAR HEMOGLOBIN 27 pg (25-34); MEAN CORPUSCULAR HGB CONC 34 g/dL (32-36); MEAN CORPUSCULAR VOLUME 78 fL (80-99); MEAN PLATELET VOLUME 9.3 fL (9.0-12.2); MONOCYTES # (AUTO) 0.8 10^3/uL (0.0-1.0); MONOCYTES % (AUTO) 8 % (0-12); NEUTROPHILS # (AUTO) 7.3 10^3/uL (1.8-7.8); NEUTROPHILS % (AUTO) 72 % (42-75); PLATELET COUNT 331 10^3/uL (130-400); WHITE BLOOD COUNT 10.1 10^3/uL (4.3-11.0)
[2023-08-31] MEDS: METOCLOPRAMIDE INJ 10 MG/2 ML IVP SCH ×3 (05:38→18:42)
[2023-08-31] MEDS: CATHETER FLUSH 10 ML SYR IVP SCH ×3 (05:38→21:19)
[2023-08-31 05:49] LABS: ALBUMIN 3.5 GM/DL (3.2-4.5); POTASSIUM 4.2 MMOL/L (3.6-5.0)
[2023-08-31 05:50] LABS: CALCIUM 8.4 MG/DL (8.5-10.1)
[2023-08-31 05:52] LABS: TOTAL PROTEIN 6.5 GM/DL (6.4-8.2)
[2023-08-31 05:53] LABS: BILIRUBIN,TOTAL 0.7 MG/DL (0.1-1.0)
[2023-08-31 05:55] LABS: CREATININE SERUM 0.86 MG/DL (0.60-1.30); PHOSPHORUS 3.9 MG/DL (2.3-4.7)
[2023-08-31 05:59] LABS: MAGNESIUM 2.1 MG/DL (1.6-2.4)
[2023-08-31] MEDS: MAGNESIUM 1 GM/100 ML IVPB 100 ML IV SCH (06:08)
[2023-08-31] MEDS: POTASSIUM CHLORIDE 20 MEQ TABLET PO SCH (06:08)
[2023-08-31 07:19] VITALS: BP 172/85
[2023-08-31] MEDS: meTOprolol INJECTION 5 MG/5 ML VIAL IV PRN (07:38)
[2023-08-31] MEDS: ONDANSETRON INJECTION 4 MG/2 ML (SDV) IV PRN (07:43)
[2023-08-31] MEDS: inSUlin DETERMIR 1 UNIT/0.01 ML (CHARGE PER UNIT) SQ SCH ×2 (08:50→21:09)
[2023-08-31] MEDS ORDERED: SCOPOLAMINE PATCH REMOVAL TP SCH (10:59)
[2023-08-31] MEDS: PROMETHAZINE INJ 25 MG/ML VIAL IM PRN (11:11)
[2023-08-31 11:38] VITALS: BP 168/80
[2023-08-31] MEDS ORDERED: SCOPOLAMINE 1.5 MG PATCH TD NR (11:45)
[2023-08-31 12:16] LABS: POTASSIUM 3.9 MMOL/L (3.6-5.0)
[2023-08-31 12:17] LABS: CALCIUM 8.4 MG/DL (8.5-10.1)
--- NOTE | 2023-08-31 12:20 | Progress Note - Hospitalist ---
GARIMA PEARSON 08/31/23 1220: Subjective HPI/CC On Admission Date Seen by Provider: Aug 31, 2023 Time Seen by Provider: 09:30 Nauseous and vomiting due to DKA Subjective/Events-last exam Pt verbalized that he believes he is going back into DKA. His last meal was yesterday. He began vomiting today around 0530 and has not stopped. He is extremely nauseous. Review of Systems General: No Chills, No Night Sweats; Fatigue; No Appetite HEENT: No Head Aches, No Visual Changes, No Eye Pain, No Ear Pain Pulmonary: No Cough Cardiovascular: No: Chest Pain, Palpitations Gastrointestinal: Nausea, Vomiting; No: Abdominal Pain Neurological: No: Weakness, Numbness, Change in speech, Confusion Objective Exam Vital Signs Vital Signs Date Time Temp Pulse Resp B/P (MAP) Pulse Ox O2 Delivery O2 Flow Rate FiO2 08/31/23 11:50 113 08/31/23 11:38 37.3 16 168/80 (109) 96 Room Air Capillary Refill : Less Than 3 Seconds General Appearance: Mild Distress HEENT: PERRL/EOMI; No Photophobia, No Scleral Icterus (L), No Scleral Icterus (R) Neck: Normal Inspection, Non Tender; No JVD Respiratory: Chest Non Tender, Lungs Clear, Normal Breath Sounds, No Accessory Muscle Use, No Respiratory Distress Cardiovascular: No Murmur, Normal Peripheral Pulses, Tachycardia (110) Gastrointestinal: Normal Bowel Sounds, No Pulsatile Mass, Non Tender, Soft Extremity: Normal Capillary Refill, No Calf Tenderness Neurologic/Psychiatric: Alert, Oriented x3, No Motor/Sensory Deficits, Normal Mood/Affect, 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 Assessment/Plan Assessment and Plan Assess & Plan/Chief Complaint Assessment: DKA High Blood Pressure Plan: DKA -pt is going to be transferred back to ICU due to vomiting -pt is going to start back on anti-nausea patch -encourage eating PO -will monitor status High Blood Pressure -continue IV metoprolol -telemetry continued until transferred back to ICU Clinical Quality Measures Admission Status Admission Dx Assessment: DKA Plan: DKA -insulin at 3.5 units/hour -continue to monitor glc readings LORE JOSÉ DO 09/01/23 0518: Subjective Subjective/Events-last exam Nausea and vomiting continues Patient back in DKA Objective Exam General Appearance: WD/WN, Chronically ill, Mild Distress Assessment/Plan Assessment and Plan Assess & Plan/Chief Complaint We will move back to ICU for insulin drip Supervisory-Addendum Brief Verification & Attestation Participated in pt care: history, MDM, physical Personally performed: exam, history, MDM, supervision of care Care discussed with: Medical Student Procedures: n/a Results interpretation: Verified all documentation Verification and Attestation of Medical Student E/M Service A medical student performed and documented this service in my presence. I reviewed and verified all information documented by the medical student and made modifications to such information, when appropriate. I personally performed the physical exam and medical decision making. Lore José, Sep 01, 2023,05:18 GARIMA PEARSON Aug 31, 2023 12:20 LORE JOSÉ DO Sep 01, 2023 05:18
[2023-08-31 12:22] LABS: CREATININE SERUM 0.86 MG/DL (0.60-1.30)
[2023-08-31] MEDS ORDERED: POTASSIUM CL 10MEQ/50ML IVPB 50 ML IV SCH (12:45)
[2023-08-31] MEDS ORDERED: NS IV 1000 ML 1,000 ML IV SCH (12:45)
[2023-08-31] MEDS: POTASSIUM CL 10MEQ/50ML IVPB 50 ML IV SCH ×5 (13:54→22:02)
[2023-08-31] MEDS: 1/2 NS IV SOLUTION 1000 ML 1,000 ML IV SCH ×3 (13:55→20:46)
[2023-08-31 15:02] LABS: POTASSIUM 4.5 MMOL/L (3.6-5.0)
[2023-08-31 15:03] LABS: CALCIUM 7.8 MG/DL (8.5-10.1)
[2023-08-31 15:08] LABS: CREATININE SERUM 1.01 MG/DL (0.60-1.30)
[2023-08-31] MEDS: ENOXAPARIN 40 MG/0.4 ML SYRINGE SC SCH (15:47)
[2023-08-31] MEDS: D5 1/2 NS 1,000 ML IV 1,000 ML IV SCH ×2 (15:47→19:55)
[2023-08-31 20:48] LABS: CALCIUM 7.8 MG/DL (8.5-10.1); CREATININE SERUM 1.09 MG/DL (0.60-1.30); POTASSIUM 4.3 MMOL/L (3.6-5.0)
[2023-09-01] MEDS: ENALAPRILAT INJ 2.5 MG/2 ML VIAL IV SCH ×5 (00:02→23:57)
[2023-09-01] MEDS: hydrALAZINE INJECTION 20 MG/ML VIAL IV SCH ×7 (00:02→23:58)
[2023-09-01] MEDS: METOCLOPRAMIDE INJ 10 MG/2 ML IVP SCH ×5 (00:04→23:58)
[2023-09-01] MEDS: 1/2 NS IV SOLUTION 1000 ML 1,000 ML IV SCH ×6 (00:57→21:29)
[2023-09-01 03:47] LABS: BASOPHILS % (AUTO) 0 % (0-10); EOSINOPHILS % (AUTO) 0 % (0-10); HEMATOCRIT 31 % (40-54); HEMOGLOBIN 10.4 g/dL (13.3-17.7); LYMPHOCYTES # (AUTO) 1.2 10^3/uL (1.0-4.0); LYMPHOCYTES % (AUTO) 13 % (12-44); MEAN CORPUSCULAR HEMOGLOBIN 27 pg (25-34); MEAN CORPUSCULAR HGB CONC 33 g/dL (32-36); MEAN CORPUSCULAR VOLUME 81 fL (80-99); MEAN PLATELET VOLUME 9.1 fL (9.0-12.2); MONOCYTES # (AUTO) 0.8 10^3/uL (0.0-1.0); MONOCYTES % (AUTO) 8 % (0-12); NEUTROPHILS # (AUTO) 7.3 10^3/uL (1.8-7.8); NEUTROPHILS % (AUTO) 78 % (42-75); PLATELET COUNT 283 10^3/uL (130-400); WHITE BLOOD COUNT 9.3 10^3/uL (4.3-11.0)
[2023-09-01 04:01] LABS: POTASSIUM 4.8 MMOL/L (3.6-5.0)
[2023-09-01 04:02] LABS: CALCIUM 7.9 MG/DL (8.5-10.1)
[2023-09-01 04:06] LABS: CREATININE SERUM 0.94 MG/DL (0.60-1.30); PHOSPHORUS 3.5 MG/DL (2.3-4.7)
[2023-09-01] MEDS: MAGNESIUM 1 GM/100 ML IVPB 100 ML IV SCH (05:57)
[2023-09-01] MEDS: POTASSIUM CHLORIDE 20 MEQ TABLET PO SCH (05:57)
[2023-09-01] MEDS: inSUlin ASPART 1 UNIT/0.01 ML (PER UNIT) SC SCH ×4 (06:06→20:27)
[2023-09-01] MEDS: CATHETER FLUSH 10 ML SYR IVP SCH ×3 (06:06→21:53)
[2023-09-01] MEDS: inSUlin DETERMIR 1 UNIT/0.01 ML (CHARGE PER UNIT) SQ SCH ×2 (09:14→21:00)
[2023-09-01] MEDS: ONDANSETRON INJECTION 4 MG/2 ML (SDV) IV PRN (10:34)
--- NOTE | 2023-09-01 10:36 | Progress Note - Hospitalist ---
GARIMA PEARSON 09/01/23 1036: Subjective HPI/CC On Admission Date Seen by Provider: Sep 01, 2023 Time Seen by Provider: 08:15 Nauseous and vomiting due to DKA Subjective/Events-last exam Pt reports that he has not vomited today. He denies having any abdominal pain or nausea. Pt ate breakfast today and did not vomit afterwards. Upon rounding at approx 1130H pt stated that one hour after my exam this morning he started vomiting and feeling nauseous again. Review of Systems General: No Chills, No Night Sweats HEENT: No Head Aches, No Visual Changes, No Eye Pain, No Ear Pain Pulmonary: No Cough Cardiovascular: No: Chest Pain, Palpitations Gastrointestinal: Nausea, Vomiting; No: Abdominal Pain Neurological: No: Weakness, Numbness, Incoordination, Change in speech, Confusion Objective Exam Vital Signs Vital Signs Date Time Temp Pulse Resp B/P (MAP) Pulse Ox O2 Delivery O2 Flow Rate FiO2 09/01/23 11:52 36.1 09/01/23 11:00 120 18 97 Room Air Capillary Refill : Less Than 3 Seconds General Appearance: No Apparent Distress, WD/WN HEENT: PERRL/EOMI; No Photophobia, No Scleral Icterus (L), No Scleral Icterus (R) Neck: Normal Inspection, Non Tender Respiratory: Chest Non Tender, Lungs Clear, Normal Breath Sounds, No Accessory Muscle Use, No Respiratory Distress Cardiovascular: Regular Rate, Rhythm, No Murmur, Normal Peripheral Pulses (2+ b/l radial and posterior tibialis) Gastrointestinal: Normal Bowel Sounds, Non Tender, Soft Extremity: Normal Capillary Refill, No Calf Tenderness Neurologic/Psychiatric: Alert, Oriented x3, No Motor/Sensory Deficits, Normal 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 Assessment/Plan Assessment and Plan Assess & Plan/Chief Complaint Assessment: DKA High Blood Pressure Plan: DKA -pt will restart IV insulin due to DKA not being under control -will redraw and check labs -glucometer read 209 at 0600H -beta-hydroxybutyrate was 0.17 High Blood Pressure -continue IV metoprolol -monitor BPs due to increased readings Clinical Quality Measures Admission Status Admission Dx Assessment: DKA Plan: DKA -insulin at 3.5 units/hour -continue to monitor glc readings LORE JOSÉ DO 09/02/23 0609: Subjective Subjective/Events-last exam Patient doing well Nausea vomiting continue High risk for recurrence of DKA so will remain in ICU for insulin drip Objective Exam General Appearance: No Apparent Distress, WD/WN, Chronically ill Respiratory: Lungs Clear, Normal Breath Sounds Cardiovascular: Regular Rate, Rhythm Assessment/Plan Assessment and Plan Assess & Plan/Chief Complaint Monitor nausea and vomiting Supervisory-Addendum Brief Verification & Attestation Participated in pt care: history, MDM, physical Personally performed: exam, history, MDM, supervision of care Care discussed with: Medical Student Procedures: n/a Results interpretation: Verified all documentation Verification and Attestation of Medical Student E/M Service A medical student performed and documented this service in my presence. I reviewed and verified all information documented by the medical student and made modifications to such information, when appropriate. I personally performed the physical exam and medical decision making. Lore José Sep 02, 2023,06:08 GARIMA PEARSON Sep 01, 2023 10:36 LORE JOSÉ DO Sep 02, 2023 06:09
[2023-09-01 12:49] LABS: CALCIUM 8.6 MG/DL (8.5-10.1); CREATININE SERUM 0.83 MG/DL (0.60-1.30); POTASSIUM 3.9 MMOL/L (3.6-5.0)
[2023-09-01] MEDS ORDERED: ENOXAPARIN 30 MG/0.3 ML SYRINGE SC SCH (16:00)
[2023-09-02] MEDS: 1/2 NS IV SOLUTION 1000 ML 1,000 ML IV SCH ×4 (00:45→13:00)
[2023-09-02] MEDS: hydrALAZINE INJECTION 20 MG/ML VIAL IV SCH ×3 (03:28→12:58)
[2023-09-02 03:37] LABS: BASOPHILS % (AUTO) 0 % (0-10); EOSINOPHILS # (AUTO) 0.2 10^3/uL (0.0-0.3); EOSINOPHILS % (AUTO) 2 % (0-10); HEMATOCRIT 29 % (40-54); HEMOGLOBIN 9.5 g/dL (13.3-17.7); LYMPHOCYTES # (AUTO) 2.1 10^3/uL (1.0-4.0); LYMPHOCYTES % (AUTO) 28 % (12-44); MEAN CORPUSCULAR HEMOGLOBIN 27 pg (25-34); MEAN CORPUSCULAR HGB CONC 33 g/dL (32-36); MEAN CORPUSCULAR VOLUME 80 fL (80-99); MONOCYTES # (AUTO) 0.6 10^3/uL (0.0-1.0); MONOCYTES % (AUTO) 7 % (0-12); NEUTROPHILS # (AUTO) 4.7 10^3/uL (1.8-7.8); NEUTROPHILS % (AUTO) 62 % (42-75); PLATELET COUNT 261 10^3/uL (130-400); WHITE BLOOD COUNT 7.6 10^3/uL (4.3-11.0)
[2023-09-02 03:50] LABS: PHOSPHORUS 3.1 MG/DL (2.3-4.7)
[2023-09-02 04:43] LABS: POTASSIUM 5.1 MMOL/L (3.6-5.0)
[2023-09-02 04:44] LABS: CALCIUM 7.8 MG/DL (8.5-10.1)
[2023-09-02 04:45] LABS: TOTAL PROTEIN 5.6 GM/DL (6.4-8.2)
[2023-09-02 04:47] LABS: BILIRUBIN,TOTAL 0.4 MG/DL (0.1-1.0)
[2023-09-02 04:49] LABS: CREATININE SERUM 0.95 MG/DL (0.60-1.30)
[2023-09-02] MEDS: POTASSIUM CL 10MEQ/50ML IVPB 50 ML IV SCH (05:12)
[2023-09-02] MEDS: POTASSIUM CHLORIDE 20 MEQ TABLET PO SCH (05:13)
[2023-09-02] MEDS: MAGNESIUM 1 GM/100 ML IVPB 100 ML IV SCH (05:13)
[2023-09-02] MEDS: ENALAPRILAT INJ 2.5 MG/2 ML VIAL IV SCH ×2 (05:13→12:58)
[2023-09-02] MEDS: METOCLOPRAMIDE INJ 10 MG/2 ML IVP SCH ×2 (05:34→12:58)
[2023-09-02] MEDS: CATHETER FLUSH 10 ML SYR IVP SCH (05:34)
[2023-09-02] MEDS: inSUlin ASPART 1 UNIT/0.01 ML (PER UNIT) SC SCH ×2 (05:34→11:23)
[2023-09-02] MEDS: inSUlin DETERMIR 1 UNIT/0.01 ML (CHARGE PER UNIT) SQ SCH (09:11)
--- NOTE | 2023-09-02 09:42 | Progress Note ---
BLAYNE TREJO MD, RESIDENT 09/02/23 0942: Subjective HPI/CC On Admission Date Seen by Provider: Sep 02, 2023 Time Seen by Provider: 07:20 Nauseous and vomiting due to DKA Subjective/Events-last exam Patient states he is feeling pretty good this morning. Is continuing to have some nausea but has not had any vomiting. States he was able to tolerate dinner yesterday. He notes that he tends to have nausea in the morning. He does want to eat breakfast this a.m. and feels that if he is able to tolerate this, would be okay with going home today. He did refuse his insulin last night as he was worried about bottoming out his sugars overnight. Sugars appear to be well controlled otherwise overnight. Review of Systems General: No Fatigue HEENT: No Head Aches Pulmonary: No Dyspnea, No Cough Cardiovascular: No: Chest Pain, Palpitations, Edema Gastrointestinal: Nausea; No: Vomiting, Diarrhea, Constipation Genitourinary: No Dysuria Objective Exam Vital Signs Vital Signs Date Time Temp Pulse Resp B/P (MAP) Pulse Ox O2 Delivery O2 Flow Rate FiO2 09/02/23 09:00 112 24 128/80 (88) 97 Room Air 09/02/23 07:33 36.5 Capillary Refill : Less Than 3 Seconds General Appearance: No Apparent Distress HEENT: Normal ENT Inspection Neck: Full Range of Motion, Normal Inspection Respiratory: Chest Non Tender, Lungs Clear, Normal Breath Sounds, No Accessory Muscle Use, No Respiratory Distress Cardiovascular: Regular Rate, Rhythm, No Edema, No Murmur Gastrointestinal: Normal Bowel Sounds, Non Tender, Soft Extremity: No Pedal Edema Neurologic/Psychiatric: Alert, Oriented x3 Results/Procedures Lab Laboratory Tests 09/01/23 12:20 09/02/23 03:25 Patient resulted labs reviewed. Assessment/Plan Assessment and Plan Assess & Plan/Chief Complaint 33-year-old male with type 1 diabetes presenting with DKA. DKA High Blood Pressure Plan: DKA -DKA has resolved since yesterday -Current regimen is detemir 10 units twice daily however patient did refuse last night's dose. If discharging today, will likely recommend doing detemir 10 units in the morning. -Continue sliding scale insulin B -If able to tolerate oral intake today, will plan to discharge home High Blood Pressure -continue IV metoprolol, has not required any doses since 08/31 -Continue to monitor NORAH JOSÉ DO 09/02/23 1915: Subjective Subjective/Events-last exam No N/V Improved Ready for DC Objective Exam General Appearance: No Apparent Distress, WD/WN, Chronically ill Assessment/Plan Assessment and Plan Assess & Plan/Chief Complaint DC donegal BLAYNE TREJO MD, RESIDENT Sep 02, 2023 09:42 NORAH JOSÉ DO Sep 02, 2023 19:15
--- NOTE | 2023-09-02 10:53 | Discharge Summary ---
Discharge Summary Hospital Course Was the Problem List Reviewed?: Yes Problems/Dx: (1) Diabetic ketoacidosis Status: Resolved Hospital Course Date of Admission: Aug 27, 2023 at 23:17 Admission Diagnosis : Family Physician/Provider: [place] Date of Discharge: 09/02/23 Discharge Diagnosis: [ ] Hospital Course: Standard DKA course after he was admitted for DKA placed on insulin drip on protocol then resolved but DKA recurred again requiring insulin drip again then resolved and was DC Labs and Pending Lab Test: Laboratory Tests 09/01/23 12:20: Sodium Level 135, Potassium Level 3.9, Chloride Level 105, Carbon Dioxide Level 21, Anion Gap 9, Blood Urea Nitrogen 10, Creatinine 0.83, Estimat Glomerular Filtration Rate 118, BUN/Creatinine Ratio 12, Glucose Level 123H, Calcium Level 8.6, Beta-Hydroxybutyrate (Chem panel) 0.08 09/01/23 15:11: Glucometer 50*L 09/01/23 15:38: Glucometer 59*L 09/01/23 16:03: Glucometer 94 09/01/23 20:12: Glucometer 117H 09/02/23 03:25: White Blood Count 7.6, Red Blood Count 3.56L, Hemoglobin 9.5L, Hematocrit 29L, Mean Corpuscular Volume 80, Mean Corpuscular Hemoglobin 27, Mean Corpuscular Hemoglobin Concent 33, Red Cell Distribution Width 13.9, Platelet Count 261, Mean Platelet Volume 9.0, Immature Granulocyte % (Auto) 0, Neutrophils (%) (Auto) 62, Lymphocytes (%) (Auto) 28, Monocytes (%) (Auto) 7, Eosinophils (%) (Auto) 2, Basophils (%) (Auto) 0, Neutrophils # (Auto) 4.7, Lymphocytes # (Auto) 2.1, Monocytes # (Auto) 0.6, Eosinophils # (Auto) 0.2, Basophils # (Auto) 0.0, Immature Granulocyte # (Auto) 0.0, Sodium Level 132L, Potassium Level 5.1H, Chloride Level 103, Carbon Dioxide Level 24, Anion Gap 5, Blood Urea Nitrogen 11, Creatinine 0.95, Estimat Glomerular Filtration Rate 108, BUN/Creatinine Ratio 12, Glucose Level 299H, Calcium Level 7.8L, Corrected Calcium 8.6, Phosphorus Level 3.1, Magnesium Level 2.0, Total Bilirubin 0.4, Aspartate Amino Transf (AST/SGOT) 17, Alanine Aminotransferase (ALT/SGPT) 10, Alkaline Phosph atase 60, Total Protein 5.6L, Albumin 3.0L 09/02/23 05:29: Glucometer 189H 09/02/23 10:33: Glucometer 213H Microbiology 08/29/23 Blood Culture - Preliminary, Resulted 08/27/23 MRSA Screen - Final, Complete MRSA not isolated Home Meds Active Reported Levemir (Insulin Determir) 100 Unit/Ml Soln 5 Units SQ BID Lisinopril 40 Mg Tablet 40 Mg PO DAILY Novolog (Insulin Aspart) 100 Unit/Ml Susp Unit SQ AC MDD 30 UNITS USES PER SLIDING SCALE Metoclopramide HCl 10 Mg Tablet 10 Mg PO ACHS LAST FILLED 03-28-2023 #360/90 DAY SUPPLY Pantoprazole Sodium 40 Mg Tablet.dr 40 Mg PO DAILY Assessment/Pt Instructions PCP 1 week Discharge Planning: <30 minutes discharge planning Discharge Instructions Discharge Diet: ADA Diet Activity as Tolerated: Yes Discharge Physical Examination Vital Signs Vital Signs Date Time Temp Pulse Resp B/P (MAP) Pulse Ox O2 Delivery O2 Flow Rate FiO2 09/02/23 10:00 107 134/81 (96) 95 Room Air 09/02/23 09:00 24 09/02/23 07:33 36.5 General Appearance: No Apparent Distress, WD/WN, Chronically ill Allergies: Coded Allergies: Penicillins (Verified Allergy, Unknown, 05/23/06) penicillin G (Verified Allergy, Unknown, RASH, 08/28/23) penicillin V (Verified Allergy, Unknown, rash, 08/28/23) Discharge Summary Date of Admission Aug 27, 2023 at 23:17 Date of Discharge Discharge Date: Sep 02, 2023 Discharge Diagnosis Monitor nausea and vomiting NORAH JOSÉ DO Sep 02, 2023 10:53
[2023-09-03] MEDS ORDERED: SCOPOLAMINE PATCH REMOVAL TP NR (11:44)
== END 2023-09-02 13:40 | disposition home or self-care (01) | DRG 638 ==
LOC: EDUNIT# 21:27 → ER 21:28 → ICU 23:17 → 4TH 08-30 15:56 → ICU 08-31 13:07
PROVIDERS: ADMIT Family Medicine; ATTEND Internal Medicine
DX: E10.10 Type 1 diabetes mellitus with ketoacidosis without coma (principal); I42.9 Cardiomyopathy, unspecified; N17.9 Acute kidney failure, unspecified; Z79.899 Other long term (current) drug therapy; I10 Essential (primary) hypertension; K21.9 Gastro-esophageal reflux disease without esophagitis; F41.9 Anxiety disorder, unspecified; E10.319 Type 1 diabetes mellitus with unspecified diabetic retinopathy without macular edema
CPT/HCPCS: 36410; 36415; 76937; 80048; 80053; 81000; 82010; 82805; 82947; 83036; 83605; 83735; 84100; 85007; 85025; 85027; 87040; 87081; 96361; 96374; 96375